=== PATIENT | male | born 1985 | race Caucasian/White ===

== ENCOUNTER 2016-12-04 19:09 | Emergency (ER) | payer OTHER ==
[2016-12-04] MEDS ORDERED: SODIUM CHLORIDE 0.9% 500 ML IV STA (19:20)
[2016-12-04] MEDS ORDERED: DIAZEPAM 5 MG/ML 2 ML SYRINGE IVP STA (19:20)
[2016-12-04] MEDS ORDERED: SODIUM CHLORIDE 0.9% 1,000 ML IV STA (19:20)
[2016-12-04] MEDS ORDERED: THIAMINE 100 MG/ML 2 ML VIAL IVPB STA (19:20)
[2016-12-04] MEDS ORDERED: ONDANSETRON 4 MG/2 ML VIAL IVP STA (19:21)
[2016-12-04] MEDS ORDERED: FOLIC ACID 1 MG TAB PO STA (19:21)
[2016-12-04] MEDS ORDERED: MAGNESIUM OXIDE 400 MG TAB PO STA (19:21)
--- NOTE | 2016-12-04 19:26 | ED ---
General Adult HPI - General Source: patient, RN notes reviewed, old records reviewed Mode of arrival: ambulatory Limitations: no limitations <Tucker Lopez - Last Filed: 12/04/16 19:24> <Jorge Alicia - Last Filed: 12/05/16 05:35> - General Chief complaint: Back Pain/Injury Stated complaint: Generalized Pain Time Seen by Provider: 12/04/16 19:16 - History of Present Illness Initial comments: This is a 31-year-old male to the ER for evaluation. Patient presents here today for evaluation of back pain and body pain muscle aches muscle pain. Patient with renal colic and an everyday drinker. States his last drink was prior to arrival. Patient also states he is having cramping in his with his care as both his arms biceps and chest. Patient is a decreased appetite, and balanced diet, homelessness. Patient denies homicidal or suicidal thoughts ( Tucker Lopez) - Related Data Home Medications Medication Instructions Recorded Confirmed No Known Home Medications [No 12/04/16 12/04/16 Known Home Medications] Allergies Allergy/AdvReac Type Severity Reaction Status Date / Time No Known Allergies Allergy Verified 12/04/16 19:39 Review of Systems ROS Other: All systems not noted in ROS Statement are negative. <Tucker Lopez - Last Filed: 12/04/16 19:24> ROS Other: All systems not noted in ROS Statement are negative. <Jorge Alicia - Last Filed: 12/05/16 05:35> ROS Statement: Those systems with pertinent positive or pertinent negative responses have been documented in the HPI. Past Medical History Past Medical History: No Reported History Additional Past Medical History / Comment(s): chronic back pain History of Any Multi-Drug Resistant Organisms: None Reported Past Surgical History: Orthopedic Surgery Additional Past Surgical History / Comment(s): knee Past Psychological History: Anxiety Smoking Status: Current every day smoker Past Alcohol Use History: Abuse, Daily, Heavy Past Drug Use History: None Reported <Tucker Lopez - Last Filed: 12/04/16 19:24> General Exam Limitations: no limitations General appearance: alert, in no apparent distress Head exam: Present: atraumatic, normocephalic, normal inspection Eye exam: Present: normal appearance, PERRL, EOMI. Absent: scleral icterus, conjunctival injection, periorbital swelling ENT exam: Present: normal exam, mucous membranes moist Neck exam: Present: normal inspection. Absent: tenderness, meningismus, lymphadenopathy Respiratory exam: Present: normal lung sounds bilaterally. Absent: respiratory distress, wheezes, rales, rhonchi, stridor Cardiovascular Exam: Present: normal rhythm, tachycardia, normal heart sounds. Absent: systolic murmur, diastolic murmur, rubs, gallop, clicks GI/Abdominal exam: Present: soft, normal bowel sounds. Absent: distended, tenderness, guarding, rebound, rigid Extremities exam: Present: normal inspection, full ROM, normal capillary refill. Absent: tenderness, pedal edema, joint swelling, calf tenderness Back exam: Present: normal inspection Neurological exam: Present: alert, oriented X3, CN II-XII intact Psychiatric exam: Present: normal affect, normal mood Skin exam: Present: warm, dry, intact, normal color. Absent: rash <Tucker Lopez - Last Filed: 12/04/16 19:24> Medical Decision Making <Tucker Lopez - Last Filed: 12/04/16 19:24> - Lab Data Result diagrams: 12/04/16 19:36 12/04/16 19:36 <Jorge Alicia - Last Filed: 12/05/16 05:35> - Medical Decision Making Patient did complain earlier of depression and was seen by mental health services who did provide follow-up list and does not feel patient qualifies for inpatient mental health services. Patient was reevaluated by myself, Dr. Alicia. Patient resting comfortably in bed. Patient states he is a daily drinker and does walk a lot. Patient without further complaints and is comfortable with discharge. Patient advised to discontinue alcohol use. (Jorge Alicia) - Lab Data Lab Results 12/04/16 12/04/16 12/04/16 Range/Units 19:36 19:36 19:36 WBC 7.7 (3.8-10.6) k/uL RBC 4.82 (4.30-5.90) m/uL Hgb 16.4 (13.0-17.5) gm/dL Hct 45.6 (39.0-53.0) % MCV 94.7 (80.0-100.0) fL MCH 34.1 (25.0-35.0) pg MCHC 36.0 (31.0-37.0) g/dL RDW 12.6 (11.5-15.5) % Plt Count 240 (150-450) k/uL Neutrophils % 71 % Lymphocytes % 21 % Monocytes % 5 % Eosinophils % 1 % Basophils % 1 % Neutrophils # 5.4 (1.3-7.7) k/uL Lymphocytes # 1.6 (1.0-4.8) k/uL Monocytes # 0.4 (0-1.0) k/uL Eosinophils # 0.1 (0-0.7) k/uL Basophils # 0.1 (0-0.2) k/uL Sodium 139 (137-145) mmol/L Potassium 3.4 L (3.5-5.1) mmol/L Chloride 103 (98-107) mmol/L Carbon Dioxide 22 (22-30) mmol/L Anion Gap 14 mmol/L BUN 7 L (9-20) mg/dL Creatinine 0.83 (0.66-1.25) mg/dL Est GFR (MDRD) Af Amer >60 (>60 ml/min/1.73 sqM) Est GFR (MDRD) Non-Af >60 (>60 ml/min/1.73 sqM) Glucose 147 H (74-99) mg/dL Calcium 9.1 (8.4-10.2) mg/dL Phosphorus 3.3 (2.5-4.5) mg/dL Magnesium 2.1 (1.6-2.3) mg/dL Total Bilirubin 1.7 H (0.2-1.3) mg/dL AST 113 H (17-59) U/L ALT 95 H (21-72) U/L Alkaline Phosphatase 94 (38-126) U/L Total Creatine Kinase 869 H (55-170) U/L CK-MB (CK-2) 7.4 H* (0.0-2.4) ng/mL CK-MB (CK-2) Rel Index 0.9 Total Protein 7.5 (6.3-8.2) g/dL Albumin 4.7 (3.5-5.0) g/dL Lipase 105 (23-300) U/L Urine Opiates Screen (NotDetected) Ur Oxycodone Screen (NotDetected) Urine Methadone Screen (NotDetected) Ur Propoxyphene Screen (NotDetected) Ur Barbiturates Screen (NotDetected) U Tricyclic Antidepress (NotDetected) Ur Phencyclidine Scrn (NotDetected) Ur Amphetamines Screen (NotDetected) U Methamphetamines Scrn (NotDetected) U Benzodiazepines Scrn (NotDetected) Urine Cocaine Screen (NotDetected) U Marijuana (THC) Screen (NotDetected) Serum Alcohol 246 mg/dL 12/04/16 Range/Units 20:12 WBC (3.8-10.6) k/uL RBC (4.30-5.90) m/uL Hgb (13.0-17.5) gm/dL Hct (39.0-53.0) % MCV (80.0-100.0) fL MCH (25.0-35.0) pg MCHC (31.0-37.0) g/dL RDW (11.5-15.5) % Plt Count (150-450) k/uL Neutrophils % % Lymphocytes % % Monocytes % % Eosinophils % % Basophils % % Neutrophils # (1.3-7.7) k/uL Lymphocytes # (1.0-4.8) k/uL Monocytes # (0-1.0) k/uL Eosinophils # (0-0.7) k/uL Basophils # (0-0.2) k/uL Sodium (137-145) mmol/L Potassium (3.5-5.1) mmol/L Chloride (98-107) mmol/L Carbon Dioxide (22-30) mmol/L Anion Gap mmol/L BUN (9-20) mg/dL Creatinine (0.66-1.25) mg/dL Est GFR (MDRD) Af Amer (>60 ml/min/1.73 sqM) Est GFR (MDRD) Non-Af (>60 ml/min/1.73 sqM) Glucose (74-99) mg/dL Calcium (8.4-10.2) mg/dL Phosphorus (2.5-4.5) mg/dL Magnesium (1.6-2.3) mg/dL Total Bilirubin (0.2-1.3) mg/dL AST (17-59) U/L ALT (21-72) U/L Alkaline Phosphatase (38-126) U/L Total Creatine Kinase (55-170) U/L CK-MB (CK-2) (0.0-2.4) ng/mL CK-MB (CK-2) Rel Index Total Protein (6.3-8.2) g/dL Albumin (3.5-5.0) g/dL Lipase (23-300) U/L Urine Opiates Screen Not Detected (NotDetected) Ur Oxycodone Screen Not Detected (NotDetected) Urine Methadone Screen Not Detected (NotDetected) Ur Propoxyphene Screen Not Detected (NotDetected) Ur Barbiturates Screen Not Detected (NotDetected) U Tricyclic Antidepress Not Detected (NotDetected) Ur Phencyclidine Scrn Not Detected (NotDetected) Ur Amphetamines Screen Not Detected (NotDetected) U Methamphetamines Scrn Not Detected (NotDetected) U Benzodiazepines Scrn Not Detected (NotDetected) Urine Cocaine Screen Not Detected (NotDetected) U Marijuana (THC) Screen Not Detected (NotDetected) Serum Alcohol mg/dL Disposition <Tucker Lopez - Last Filed: 12/04/16 19:24> <Jorge Alicia - Last Filed: 12/05/16 05:35> Clinical Impression: Alcohol abuse Disposition: HOME SELF-CARE Condition: Stable Instructions: Abuse of Alcohol (ED) Additional Instructions: Discontinue alcohol use. Follow-up with primary care physician next day or 2 for recheck. Please follow-up with substance abuse, list provided. Return for change or worsening in symptoms or other concerns. Referrals: None,Stated [Primary Care Provider] - 1-2 days Talia Zelaya MD [REFERRING] - 1-2 days
[2016-12-04 19:46] LABS: Basophils # (A) 0.1 k/uL (0-0.2); Basophils % (A) 1 %; Eosinophils # (A) 0.1 k/uL (0-0.7); Eosinophils % (A) 1 %; HCT 45.6 % (39.0-53.0); HDW 2.16; HGB 16.4 gm/dL (13.0-17.5); Luc # (Auto) 0.17; Luc % (Auto) 2; Lymphocytes # (A) 1.6 k/uL (1.0-4.8); Lymphocytes % (A) 21 %; MCH 34.1 pg (25.0-35.0); MCV 94.7 fL (80.0-100.0); Mean Platelet Volume 6.9; Monocytes # (A) 0.4 k/uL (0-1.0); Monocytes % (A) 5 %; Neutrophils # (A) 5.4 k/uL (1.3-7.7); Neutrophils % (A) 71 %; RBC 4.82 m/uL (4.30-5.90); RDW 12.6 % (11.5-15.5); WBC 7.7 k/uL (3.8-10.6); WBC (Perox) 7.36
[2016-12-04 19:58] LABS: ALT 95 U/L (21-72); AST 113 U/L (17-59); Alkaline Phosphatase 94 U/L (38-126); Anion Gap 14 mmol/L; Blood Urea Nitrogen 7 mg/dL (9-20); Calcium 9.1 mg/dL (8.4-10.2); Carbon Dioxide 22 mmol/L (22-30); Chloride 103 mmol/L (98-107); Glucose 147 mg/dL (74-99); Magnesium 2.1 mg/dL (1.6-2.3); Non-African American GFR(MDRD) >60 (>60 ml/min/1.73 sqM); Phosphorous 3.3 mg/dL (2.5-4.5); Potassium 3.4 mmol/L (3.5-5.1); Sodium 139 mmol/L (137-145); Total Bilirubin 1.7 mg/dL (0.2-1.3); Total Protein 7.5 g/dL (6.3-8.2)
[2016-12-04 20:04] LABS: Alcohol 246 mg/dL
[2016-12-04 20:26] LABS: Creatine Kinase MB 7.4 ng/mL (0.0-2.4)
[2016-12-05 00:03] VITALS: RESP 20
[2016-12-05] MEDS ORDERED: FAMOTIDINE 20 MG TAB PO STA (05:35)
[2016-12-05 05:55] VITALS: BP 138/64; PULSE 92; TEMP 98.1
== END 2016-12-05 05:55 | disposition home or self-care (01) ==
LOC: EC 19:09
DX: F10.10 Alcohol abuse, uncomplicated (principal); R00.0 Tachycardia, unspecified; N23 Unspecified renal colic; M54.9 Dorsalgia, unspecified; R25.2 Cramp and spasm; R52 Pain, unspecified; F17.200 Nicotine dependence, unspecified, uncomplicated; Z59.0 Homelessness
CPT/HCPCS: 99284; 82075; 36415; 80053; 82550; 82553; 83690; 83735; 84100; 85025; 80306; 80320; 96374; 96375 ×2; 96361; J3411; J3360; J2405

== ENCOUNTER 2017-02-11 16:23 | Inpatient (IN) | payer MEDICAID, OTHER ==
[2017-02-11] MEDS ORDERED: SODIUM CHLORIDE 0.9% 1,000 ML IV ONE (16:58)
[2017-02-11] MEDS ORDERED: DIPH,PERTUS(ACELL)TETVAC-LF 0.5 ML VIAL IM ONE (17:03)
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
[2017-02-11 17:22] LABS: Basophils # (A) 0.1 k/uL (0-0.2); Basophils % (A) 1 %; CH 34.7; CHCM 36.4; Eosinophils # (A) 0.1 k/uL (0-0.7); Eosinophils % (A) 1 %; HCT 40.3 % (39.0-53.0); HDW 2.33; HGB 14.1 gm/dL (13.0-17.5); Luc # (Auto) 0.21; Luc % (Auto) 3; Lymphocytes # (A) 2.2 k/uL (1.0-4.8); Lymphocytes % (A) 30 %; MCH 33.6 pg (25.0-35.0); MCHC 35.1 g/dL (31.0-37.0); MCV 95.6 fL (80.0-100.0); Mean Platelet Volume 7.4; Monocytes # (A) 0.3 k/uL (0-1.0); Monocytes % (A) 5 %; Neutrophils # (A) 4.6 k/uL (1.3-7.7); Neutrophils % (A) 61 %; RBC 4.21 m/uL (4.30-5.90); RDW 13.4 % (11.5-15.5); WBC 7.6 k/uL (3.8-10.6); WBC (Perox) 7.22
[2017-02-11 17:31] LABS: ALT 92 U/L (21-72); AST 75 U/L (17-59); Alkaline Phosphatase 72 U/L (38-126); Anion Gap 12 mmol/L; Blood Urea Nitrogen 5 mg/dL (9-20); Calcium 8.5 mg/dL (8.4-10.2); Carbon Dioxide 26 mmol/L (22-30); Chloride 108 mmol/L (98-107); Glucose 109 mg/dL (74-99); Non-African American GFR(MDRD) >60 (>60 ml/min/1.73 sqM); Potassium 3.5 mmol/L (3.5-5.1); Sodium 146 mmol/L (137-145); Total Bilirubin 0.3 mg/dL (0.2-1.3); Total Protein 6.5 g/dL (6.3-8.2)
[2017-02-11 17:39] LABS: Alcohol 352 mg/dL
--- NOTE | 2017-02-11 17:47 | CT ---
EXAMINATION TYPE: CT brain fabioine gildardo con DATE OF EXAM: 02/11/2017 COMPARISON: September 18, 2011. HISTORY: Headache. Neck pain. CT DLP: 1150.6 mGycm Automated exposure control for dose reduction was used. TECHNIQUE: CT scan of the head and cervical spine are performed without contrast. FINDINGS: There is no acute intracranial hemorrhage, mass effect, or midline shift identified. The ventricles and sulci are within normal limits in size. The globes are intact and the visualized sin uses are clear. Cervical spine is visualized in its entirety from C1 through upper thoracic levels and demonstrates s atisfactory alignment without evidence of acute fracture or dislocation. Prevertebral soft tissue ap pears within normal limits. The C1-C2 articulation is unremarkable. Mild reversal of cervical lordo sis is noted similar to the previous study. IMPRESSION: 1. There is no acute fracture or dislocation evident in the cervical spine. Mild reversal of the cerv ical lordosis is noted. 2. No acute intracranial hemorrhage, mass effect, or midline shift is seen.
--- NOTE | 2017-02-11 17:49 | XR ---
Exam: Right hand complete TECHNIQUE: 4 views of the right hand were obtained. No prior studies are available for comparison. FINDINGS: No acute fracture or subluxation. No radiopaque foreign body is identified. Soft tissue structures ar e unremarkable. IMPRESSION: No acute abnormality is identified.
[2017-02-12] MEDS ORDERED: LORazepam 1 MG TAB PO STA (13:14)
[2017-02-12] MEDS ORDERED: MAG HYDROX/AL HYDROX/SIMETH 30 ML CUP PO PRN (14:30)
[2017-02-12] MEDS ORDERED: ZIPRASIDONE 20 MG VIAL IM PRN (14:30)
[2017-02-12] MEDS ORDERED: MAGNESIUM HYDROXIDE 2,400 MG/10 ML CUP PO PRN (14:30)
[2017-02-12] MEDS ORDERED: LORazepam 2 MG/ML SYRINGE IM PRN (14:33)
[2017-02-12] MEDS: LORazepam 1 MG TAB PO PRN (18:07)
[2017-02-12] MEDS: ACETAMINOPHEN TAB 325 MG TAB PO PRN (18:07)
[2017-02-12] MEDS: NICOTINE 21MG/24HR PATCH TRANSDERM SCH (18:55)
[2017-02-13] MEDS: LORazepam 1 MG TAB PO PRN ×3 (06:57→21:52)
[2017-02-13] MEDS ORDERED: NICOTINE 14MG/24HR PATCH TRANSDERM SCH (09:00)
[2017-02-13] MEDS: NICOTINE 21MG/24HR PATCH TRANSDERM SCH (09:15)
[2017-02-13 09:55] LABS: Basophils % (A) 1 %; CH 33.4; CHCM 34.9; Eosinophils # (A) 0.1 k/uL (0-0.7); Eosinophils % (A) 2 %; HCT 40.2 % (39.0-53.0); HGB 13.9 gm/dL (13.0-17.5); Luc # (Auto) 0.11; Luc % (Auto) 2; Lymphocytes # (A) 1.1 k/uL (1.0-4.8); Lymphocytes % (A) 18 %; MCH 33.3 pg (25.0-35.0); MCHC 34.6 g/dL (31.0-37.0); Monocytes # (A) 0.4 k/uL (0-1.0); Monocytes % (A) 7 %; Neutrophils # (A) 4.1 k/uL (1.3-7.7); Neutrophils % (A) 70 %; RBC 4.18 m/uL (4.30-5.90); RDW 12.9 % (11.5-15.5); WBC 5.9 k/uL (3.8-10.6); WBC (Perox) 6.21
[2017-02-13 10:23] LABS: ALT 76 U/L (21-72); AST 50 U/L (17-59); Alkaline Phosphatase 66 U/L (38-126); Anion Gap 7 mmol/L; Blood Urea Nitrogen 11 mg/dL (9-20); Calcium 8.6 mg/dL (8.4-10.2); Carbon Dioxide 25 mmol/L (22-30); Chloride 107 mmol/L (98-107); Glucose 99 mg/dL (74-99); Non-African American GFR(MDRD) >60 (>60 ml/min/1.73 sqM); Potassium 4.3 mmol/L (3.5-5.1); Sodium 139 mmol/L (137-145); Total Bilirubin 0.5 mg/dL (0.2-1.3)
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
[2017-02-13] MEDS: SERTRALINE 50 MG TAB PO SCH (12:03)
[2017-02-13] MEDS: MULTIVITAMINS, THERA 1 EACH TAB PO SCH (12:03)
[2017-02-13] MEDS: THIAMINE 100 MG TAB PO SCH (12:03)
[2017-02-13] MEDS: ACETAMINOPHEN TAB 325 MG TAB PO PRN ×2 (16:53→21:52)
[2017-02-14] MEDS: ACETAMINOPHEN TAB 325 MG TAB PO PRN ×2 (08:38→21:05)
[2017-02-14] MEDS: NICOTINE 21MG/24HR PATCH TRANSDERM SCH (08:39)
[2017-02-14] MEDS: LORazepam 1 MG TAB PO PRN ×3 (08:39→21:05)
[2017-02-14] MEDS: SERTRALINE 50 MG TAB PO SCH (08:39)
--- NOTE | 2017-02-14 09:49 | P.PN ---
Progress Note - Text Interval history: The patient is found in his room he follows me to an interview room. He continues to report feeling depressed and anxious. He has a lack of energy and feels apathetic. He did not attend groups yesterday he has attended 1 group so far this morning. He reports disturbed sleep and although it's documented he slept 6 hours he reports it was quite fragmented. We discussed the use of Zoloft. He feels that he has done well with Seroquel at bedtime to help with sleep and for mood symptoms. He continues to plan on attending inpatient chemical dependency treatment on the . Mental status exam: The patient is a soft-spoken male appearing his stated age. He is wearing the same clothing is yesterday hygiene is adequate. Eye contact is intermittent. He does have spontaneous speech he is difficult to hear at times. Speech is fluent and nonpressured. Thought process can be circumstantial and sometimes tangential no loose associations or flight of ideas. He reports ongoing suicidal thoughts and feels hopeless. No homicidal ideation reported. He reports no auditory or visual hallucinations no specific delusions. There is no overt evidence of psychosis. He seated calmly he demonstrates some psychomotor slowing. No verbal or physical aggressiveness demonstrated. He is oriented to person place and date. Insight and judgment limited. Plan: Major depressive disorder recurrent severe without psychosis, alcohol use disorder: The patient will continue on the Zoloft 50 mg daily we will likely titrate the dose to 100 mg prior to discharge. I will initiate Seroquel 50 mg at bedtime to help with sleep and this may also assist in treating depressive symptoms. He is instructed to more fully participate in the milieu we will monitor him for safety.
[2017-02-14] MEDS: MULTIVITAMINS, THERA 1 EACH TAB PO SCH (11:47)
[2017-02-14] MEDS: THIAMINE 100 MG TAB PO SCH (11:47)
[2017-02-14] MEDS: QUEtiapine 50 MG TAB PO SCH (21:04)
[2017-02-15] MEDS: NICOTINE 21MG/24HR PATCH TRANSDERM SCH (08:35)
[2017-02-15] MEDS: SERTRALINE 50 MG TAB PO SCH (08:35)
--- NOTE | 2017-02-15 09:52 | P.PN ---
Progress Note - Text Interval history: The patient is found in his room lying in bed he follows me to an interview room. He reports that he was able to sleep better last night with initiation of Seroquel. He is reporting no side effects from the Zoloft. He continues to look forward to placement at [facility] on the of this month. He reports no phone contact with family as he does not want to bother them. He does plan on contacting his father over the weekend. He is certain no one will visit him here. He reports his mood is still depressed and anxious but he feels safe in this environment area and he reports that he went to most groups yesterday. Mental status exam: The patient is alert he is a disheveled appearance he is dressed in the same clothing hygiene is adequate. Eye contacts appropriate. He has more spontaneous speech he endorses a depressed and anxious mood. Affect is constricted. He remains soft-spoken. There is no psychomotor agitation possible mild slowing. He feels safe here in the hospital in terms of suicidal ideation he endorses no homicidal ideation. There is no report of auditory or visual hallucinations or specific delusions. There is no evidence of psychosis. He does not appear hypomanic or manic. He can be circumstantial at times today there was no tangential thinking loose associations or flight of ideas. Insight and judgment slowly improving. Plan: Major depressive disorder, and he disorder: Continue Zoloft we will plan to titrate 200 mg over the next few days continue Seroquel 50 mg at bedtime. He is instructed to participate fully in the milieu. Vital signs reviewed no new labs. He will likely be appropriate for discharge sometime next week depending on his clinical progress. He plans to [facility] to the [facility] upon [facility]. We discussed having him attend AA meetings prior to [facility] placement as well.
[2017-02-15] MEDS: THIAMINE 100 MG TAB PO SCH (11:48)
[2017-02-15] MEDS: MULTIVITAMINS, THERA 1 EACH TAB PO SCH (11:48)
[2017-02-15] MEDS: LORazepam 1 MG TAB PO PRN ×2 (11:49→21:14)
[2017-02-15] MEDS: QUEtiapine 50 MG TAB PO SCH (20:02)
[2017-02-16] MEDS: NICOTINE 21MG/24HR PATCH TRANSDERM SCH (08:04)
[2017-02-16] MEDS: SERTRALINE 50 MG TAB PO SCH (08:04)
[2017-02-16] MEDS: LORazepam 1 MG TAB PO PRN ×2 (08:07→16:31)
[2017-02-16] MEDS: MULTIVITAMINS, THERA 1 EACH TAB PO SCH (12:11)
[2017-02-16] MEDS: THIAMINE 100 MG TAB PO SCH (12:11)
--- NOTE | 2017-02-16 14:34 | P.PN ---
Progress Note - Text Interval History: Patient is a 31-year-old male who was seen today in coverage for Dr. Crouch. He reports that he is sleeping well and his depression has been improving. He states that he is not having any suicidal thoughts and his energy level is increased. He denied feeling hopeless, helpless or worthless. He states he is eating well. Patient states he continues to have anxiety and has been using Ativan with good success, he stated to me that he was using alcohol and pain medication on the outside to attempt to control his anxiety. Patient reported no side effects from the medication. Patient has been attending groups and activities. Mental Status: Appearance/Attitude: Patient is appropriately and neatly dressed , makes good eye contact and is cooperative. Behavior: Patient does not display any psychomotor agitation or retardation. Speech/Language: Patient's speech is spontaneous, of normal volume and rhythm and he is coherent. Thought Process: Patient is goal-directed, no evidence of tangential or circumstantial thought and no loose associations or flight of ideas. Thought Content: Patient denies any auditory or visual hallucinations no delusions or paranoid ideation were elicited. Patient states that he is sleeping and eating well and denies any feeling hopeless, helpless or worthless. Patient continues to report anxiety symptoms and has been using Ativan to assist with this. Suicidal/Homicidal Ideation: Patient denies any current suicidal or homicidal ideation. Sensorium/Cognition: Patient is alert and oriented to person, place, and time and his memory is grossly intact. Mood/Affect: Patient's mood is slightly depressed and his affect is appropriate. Insight/Judgement: Patient's insight and judgment are fair. Assessment: Patient states that he is sleeping better with the addition of the Seroquel and states that his depression is beginning to improve. He reports having more energy and not feeling as depressed. He states he is not hopeless or helpless and states he no longer has any suicidal ideation. Patient does continue have difficulties with anxiety for which she has been using Ativan on an as-needed basis. Patient has been attending groups and activities and states he has been participating. Plan: Patient will continue on Seroquel 50 mg at bedtime and will increase his Zoloft to 100 mg a day to target both his depression and anxiety symptoms and I discussed this with the patient. Patient continues to require hospitalization to further stabilize his mood.
[2017-02-16] MEDS: ACETAMINOPHEN TAB 325 MG TAB PO PRN (16:31)
[2017-02-16] MEDS: QUEtiapine 50 MG TAB PO SCH (21:15)
[2017-02-17 06:40] VITALS: RESP 16
[2017-02-17] MEDS: SERTRALINE 100 MG TAB PO SCH (08:05)
[2017-02-17] MEDS: NICOTINE 21MG/24HR PATCH TRANSDERM SCH (08:05)
[2017-02-17] MEDS: LORazepam 1 MG TAB PO PRN ×2 (08:06→20:08)
--- NOTE | 2017-02-17 10:34 | P.PN ---
Progress Note - Text Interval History: Patient is a 31-year-old male who is being seen in coverage for Dr. Crouch. Patient reports that he wasn't feeling as well as morning due to waking up with a stomach ache. He did state that he ate breakfast and was attending groups and activities yesterday. He states that he didn't sleep that well last night but is unable to clarify why he wasn't sleeping well and it should be noted that patient received some Ativan last evening because of anxiety. Patient states that he is not feeling suicidal and is feeling less depressed than on admission. Patient had no other complaints at this time. Mental Status: Appearance/Attitude: Patient is appropriately dressed, makes good eye contact and was cooperative. Behavior: Patient does not display any psychomotor agitation or retardation. Speech/Language: Patient's speech is spontaneous and of normal volume and rhythm and he is coherent. Thought Process: Patient is goal-directed and there is no evidence of circumstantial or tangential thought and no loose associations or flight of ideas. Thought Content: Patient denies any auditory or visual hallucinations no delusions or paranoid ideation were elicited. Patient states that his stomach was upset this morning when he woke up but he was able to eat breakfast. He reports that he was attending groups and activities yesterday but was in bed this morning due to his stomachache. Patient reports he did not sleep well last night and was anxious and did request and Ativan. Appetite is unchanged. Suicidal/Homicidal Ideation: Patient denies any current suicidal or homicidal ideation. Sensorium/Cognition: Patient is alert and oriented to person, place, and time and his memory is grossly intact. Mood/Affect: Patient's mood is less depressed and his affect is slightly blunted. Insight/Judgement: Patient's insight and judgment are fair. Assessment: Patient was seen today and he reported he had some anxiety last night and requested some Ativan as well as not sleeping that well and waking up with a stomach ache. Patient states that he was attending groups and activities yesterday but this morning was found in bed due to not feeling physically well. He reports he has no suicidal ideation and states his depression is somewhat better than on admission. Plan: Patient was continued on Seroquel 50 mg at bedtime and his Zoloft was increased today to 100 mg to target his depressive symptoms. Patient continues to require hospitalization to further stabilize his mood
[2017-02-17] MEDS: THIAMINE 100 MG TAB PO SCH (12:52)
[2017-02-17] MEDS: MULTIVITAMINS, THERA 1 EACH TAB PO SCH (12:52)
[2017-02-17] MEDS: ACETAMINOPHEN TAB 325 MG TAB PO PRN (20:08)
[2017-02-17] MEDS: QUEtiapine 50 MG TAB PO SCH (21:26)
[2017-02-18 06:43] VITALS: BP 100/54; PULSE 71; TEMP 98
[2017-02-18] MEDS: SERTRALINE 100 MG TAB PO SCH (08:37)
[2017-02-18] MEDS: NICOTINE 21MG/24HR PATCH TRANSDERM SCH (08:37)
--- NOTE | 2017-02-18 09:46 | P.DS ---
Providers Date of admission: 02/12/17 14:17 Expected date of discharge: 02/18/17 Attending physician: Petr Crouch Consults: 02/12/17 14:30 Consult Physician Routine Consulting Provider: Avtar Mejia Consult Reason/Comments: follow up H & P Do you want consulting provider notified?: Yes Primary care physician: Stated None - Discharge Diagnosis(es) (1) Major depressive disorder, recurrent severe without psychotic features Current Visit: Yes Status: Acute Priority: High (2) Panic disorder Current Visit: Yes Status: Acute Priority: Medium (3) Alcohol use disorder Current Visit: Yes Status: Acute Priority: High Hospital Course: Brief summary of admission note: This patient is a 31-year-old single male who was admitted to the mental health unit through the emergency room with severe symptoms of depression and suicidal ideation. He had reported being severely depressed for the last several months and just having thoughts of wanting to . Energy was reported as low sleep is reported as impaired appetite was decreased. He reported symptoms of anhedonia. He reported a recent attempt to end his life by overusing alcohol with prescription pain medication. He describes symptoms of anxiety that presenting as panic attacks. For full details please refer to my psychiatric evaluation dated 02/13/2017. Summary of hospital course: The patient was admitted to the mental health unit he signed in voluntarily. We reviewed his presenting problems and medication options. We decided to initiate Zoloft and this was titrated 100 mg daily while on the mental health unit we also initiated Seroquel 50 mg at bedtime which she found helpful for sleep and may also be used as an augmentation strategy for his depression. The patient demonstrated no overt symptoms of alcohol withdrawal. Social work met with him to complete a psychosocial assessment and discharge planning. He was seen by internal medicine for routine history and physical exam. He reported a progressive improvement of symptoms while here. He states he has no acute suicidal ideation. He is scheduled to participate in inpatient chemical dependency treatment on the of this month. His plan is to [facility] the [facility] until chemical dependency treatment placement. He demonstrated no agitated behavior he was cooperative. He selectively attended groups during the course of his stay. Mental status exam: The patient is a male appearing his stated age she is dressed in his own clothing. Hygiene grooming adequate. He reports his mood is "good" he reports no suicidal or homicidal ideation intent or plan. He states he does not feel hopeless and he feels that he has a good plan in going to inpatient chemical dependency treatment and just 8 days. He is endorsing no auditory or visual hallucinations no specific delusions there is no evidence of psychosis. He endorses no racing thoughts there is no evidence of hypomanic or manic symptoms. Insight and judgment improved. He is oriented to person place and date. He demonstrates no verbal or physical aggressiveness. There is no evidence of abnormal involuntary movements. Affect is appropriately expressive he demonstrates appropriate smiling during the interview. Impressions 1. Major depressive disorder recurrent severe without psychosis, panic disorder , alcohol use disorder, rule out cannabis use disorder rule out opiate use disorder 2. Lack of social support, unemployment Plan: The patient will be discharged from mental health unit today. He plans on residing at the [address] [place] [address]. He is scheduled to start inpatient chemical dependency treatment on the of this month. He strongly encouraged to attend AA meetings prior to placement date. We discussed that a relapse of alcohol or other substance use would elevate his safety risk. He will continue on Zoloft 100 mg daily Seroquel 50 mg at bedtime. There is no imminent safety risk he is appropriate for discharge from the mental health unit to outpatient care. He is instructed to return to the hospital with any acute safety concerns. Patient Condition at Discharge: Stable Plan - Discharge Summary New Discharge Prescriptions: New Nicotine 21Mg/24Hr Patch [Habitrol] 1 patch TRANSDERM DAILY #12 patch QUEtiapine [SEROquel] 50 mg PO HS #30 tab Sertraline [Zoloft] 100 mg PO DAILY #30 tab Discharge Medication List Nicotine 21Mg/24Hr Patch [Habitrol] 1 patch TRANSDERM DAILY #12 patch 02/18/17 [ Rx] QUEtiapine [SEROquel] 50 mg PO HS #30 tab 02/18/17 [Rx] Sertraline [Zoloft] 100 mg PO DAILY #30 tab 02/18/17 [Rx] Follow up Appointment(s)/Referral(s): [facility] [Outside] - 02/26/17 10:00 am (Intake 02/26/17 at 10:00 am. Please arrive 5-10 minutes early. ) None,Stated [Primary Care Provider] - 1-2 days
[2017-02-18] MEDS: THIAMINE 100 MG TAB PO SCH (10:12)
[2017-02-18] MEDS: MULTIVITAMINS, THERA 1 EACH TAB PO SCH (10:12)
[2017-02-18] MEDS: ACETAMINOPHEN TAB 325 MG TAB PO PRN (10:12)
[2017-02-18] MEDS: LORazepam 1 MG TAB PO PRN (10:12)
--- NOTE | 2017-02-18 21:20 | CONS ---
CONSULTATION CHIEF COMPLAINT: Major depression and alcohol abuse. HISTORY OF PRESENT ILLNESS: This is the first known psych admission for this 31-year-old, white male. He presented to the emergency room with major depression and suicidal thoughts. He also has a history of alcohol abuse. REVIEW OF SYSTEMS: He denies any headaches, neurologic problems, chest pain, no cough, hemoptysis, palpitations, murmurs, syncope, orthopnea, PND, abdominal pain, nausea, vomiting, diarrhea, melena, hematochezia, jaundice, hematuria, frequency, urgency, arthralgias, diabetes, etc. PAST MEDICAL HISTORY: Past medical history, family history, personal and social history, otherwise unremarkable or unchanged. ALLERGIES: He is not allergic to any medications. MEDICATION: 1. He has recently been on Wellbutrin 150 mg once a day. 2. Motrin 800. 3. Xanax 0.25 t.i.d. p.r.n. 4. Vicodin p.r.n. 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 The remainder of his history is unremarkable. PHYSICAL EXAMINATION: Blood pressure 118/84, pulse 76, respirations 18, and temperature is 97.6. In general he appeared to be well developed, well nourished, no acute distress. Skin color is normal. Skin is warm, dry. Lymph nodes not enlarged. Head ears eyes, nose, mouth and throat were normal. Neck veins not distended. Thyroid is not enlarged. Chest is clear. Cardiac exam was normal. The abdomen is soft, nontender. Extremities are normal. Neurological he is intact. IMPRESSION: Major depression. RECOMMENDATIONS: None. MMODL / IJN: [id number] /
== END 2017-02-18 12:17 | disposition home or self-care (01) | DRG 885 ==
LOC: EC 16:23 → 3MHU 02-12 14:17
PROVIDERS: ADMIT Psychiatry & Neurology Psychiatry; ATTEND Psychiatry & Neurology Psychiatry
DX: F33.2 Major depressive disorder, recurrent severe without psychotic features (principal); E87.0 Hyperosmolality and hypernatremia; R45.851 Suicidal ideations; F41.0 Panic disorder [episodic paroxysmal anxiety]; Z79.899 Other long term (current) drug therapy; F17.200 Nicotine dependence, unspecified, uncomplicated; F12.90 Cannabis use, unspecified, uncomplicated; F10.129 Alcohol abuse with intoxication, unspecified; F11.10 Opioid abuse, uncomplicated; Z81.8 Family history of other mental and behavioral disorders; M54.9 Dorsalgia, unspecified; M25.569 Pain in unspecified knee; Z56.0 Unemployment, unspecified
CPT/HCPCS: 36415; 70450; 72125; 80053; 80306; 80320; 82075; 84443; 85025; 90471; 90715; 96360; 99285

== ENCOUNTER 2017-02-27 18:20 | Emergency (ER) | payer OTHER ==
--- NOTE | 2017-02-27 19:02 | ED ---
General Adult HPI - General Source: patient, RN notes reviewed Mode of arrival: ambulatory Limitations: no limitations <Jeovanny Deras - Last Filed: 02/27/17 18:57> <Brandy Self - Last Filed: 02/28/17 03:40> - General Chief complaint: Psychiatric Symptoms Stated complaint: General Time Seen by Provider: 02/27/17 18:39 - History of Present Illness Initial comments: Chief complaint history of present illness this is a 31-year-old male reports that he is here because he is depressed. He states he is suicidal he would either shoot himself or to both the bridge. Patient reports she's hearing voices are telling him to do himself harm. (Jeovanny Deras) - Related Data Previous Rx's Medication Instructions Recorded Nicotine 21Mg/24Hr Patch [Habitrol] 1 patch TRANSDERM DAILY #12 patch 02/18/17 QUEtiapine [SEROquel] 50 mg PO HS #30 tab 02/18/17 Sertraline [Zoloft] 100 mg PO DAILY #30 tab 02/18/17 Allergies Allergy/AdvReac Type Severity Reaction Status Date / Time No Known Allergies Allergy Verified 02/27/17 18:59 Review of Systems ROS Other: All systems not noted in ROS Statement are negative. <Jeovanny Deras - Last Filed: 02/27/17 18:57> ROS Other: All systems not noted in ROS Statement are negative. <Brandy Self - Last Filed: 02/28/17 03:40> ROS Statement: Those systems with pertinent positive or pertinent negative responses have been documented in the HPI. Review of systems patient has no complaints other than discomfort to the left side of his chest. Denies any injury. Psychologically the patient reports she is depressed hearing voices thinks he just end it all. All systems are reviewed. Past medical problems patient thinks he is probably been diagnosed as bipolar in the past. Patient reports that surgeries on his knee and back. Family history medical health issues mostly bipolar disorder. Patient is a heavy smoker heavy alcohol user. He states he is supposed to have gone to [employer] yesterday but did not get a ride and couldn't go so he drank today (Jeovanny Deras) Past Medical History Past Medical History: No Reported History Additional Past Medical History / Comment(s): chronic back pain History of Any Multi-Drug Resistant Organisms: None Reported Past Surgical History: Orthopedic Surgery Additional Past Surgical History / Comment(s): knee Past Psychological History: Anxiety Smoking Status: Current every day smoker Past Alcohol Use History: Abuse, Daily, Heavy Past Drug Use History: None Reported <Jeovanny Deras - Last Filed: 02/27/17 18:57> General Exam Limitations: no limitations <Jeovanny Deras - Last Filed: 02/27/17 18:57> <AramisBrandy hannon - Last Filed: 02/28/17 03:40> - General Exam Comments Initial Comments: General: The patient is awake presents with a flat affect. States he is hearing voices. States he's depressed and suicidal with a plan to hurt himself, and that all. Vital signs temperature 98.3 pulse 105 respiratory rate 18 pulse ox 97% room air blood pressure 132/82 Eye: Pupils are equal, round and reactive to light, extra-ocular movements are intact ; there is normal conjunctiva bilaterally. No signs of icterus. Ears, nose, mouth and throat: There are moist mucous membranes and no oral lesions. Neck: The neck is supple, there is no tenderness. Cardiovascular: There is a regular rate and rhythm. No murmur, rub or gallop is appreciated. Respiratory: Lungs are clear to auscultation, respirations are non-labored, breath sounds are equal. No wheezes, stridor, rales, or rhonchi. he complains discomfort to the left side of his chest increased with deep breathing. With palpation. No evidence of bruising. No rashes noted ,early shingles discussed Gastrointestinal: Soft, non-distended, non-tender abdomen without masses or organomegaly noted. There is no rebound or guarding present. No CVA tenderness. Back: There is no tenderness to palpation in the midline. There is no obvious deformity. No rashes noted. Musculoskeletal: Normal ROM, no tenderness, There is no pedal edema. There is no calf tenderness or swelling. Sensation intact. Neurological: No obvious focal or lateralizing findings. Patient denies any sensory or motor deficits. Skin: Psychiatric: History of bipolar depression. Currently depressed, states he is hearing voices , voices telling him to hurt himself. His plan to hurt himself agreed to shoot himself or jump off a bridge. (Jeovanny Deras) Course <Jeovanny Deras - Last Filed: 02/27/17 18:57> <Brandy Self - Last Filed: 02/28/17 03:40> Vital Signs 02/27/17 18:25 Temperature 98.3 F Pulse Rate 105 H Respiratory 18 Rate Blood Pressure 132/82 O2 Sat by Pulse 97 Oximetry - Reevaluation(s) Reevaluation #1: 02/28/17 03:39 Patient was reassessed by department of psychiatry, they recommended and they feel comfortable sending him home, they have given him follow-up directions he be discharged per there directions (Brandy Self) Disposition <Jeovanny Deras - Last Filed: 02/27/17 18:57> <Brandy Self - Last Filed: 02/28/17 03:40> Clinical Impression: Depression Disposition: HOME SELF-CARE Condition: Good Instructions: Depression (ED) Referrals: None,Stated [Primary Care Provider] - 1-2 days
--- NOTE | 2017-02-27 19:16 | XR ---
EXAMINATION TYPE: XR chest 1V portable DATE OF EXAM: 02/27/2017 COMPARISON: NONE HISTORY: Pain TECHNIQUE: Single frontal view of the chest is obtained. FINDINGS: There is no focal air space opacity, pleural effusion, or pneumothorax seen. The cardiac silhouette size is within normal limits. The osseous structures are intact. IMPRESSION: No acute process.
[2017-02-27 20:16] LABS: Acetaminophen <10.0 ug/mL; Salicylate <1.0 mg/dL
[2017-02-28] MEDS ORDERED: LORazepam 1 MG TAB PO STA (03:42)
[2017-02-28 03:51] VITALS: BP 143/89; PULSE 90; RESP 20; TEMP 97.2
== END 2017-02-28 03:55 | disposition home or self-care (01) ==
LOC: EC 18:20
DX: F32.9 Major depressive disorder, single episode, unspecified (principal); R45.851 Suicidal ideations; R44.0 Auditory hallucinations; R07.89 Other chest pain; F17.200 Nicotine dependence, unspecified, uncomplicated
CPT/HCPCS: 36415; 71010; 80306; 82075; 83520; 99284

== ENCOUNTER 2017-03-19 13:47 | Observation (INO) | payer OTHER, MEDICAID ==
[2017-03-19 14:08] LABS: Basophils # (A) 0.1 k/uL (0-0.2); Basophils % (A) 1 %; CH 33.7; Eosinophils # (A) 0.1 k/uL (0-0.7); Eosinophils % (A) 1 %; HCT 49.9 % (39.0-53.0); HDW 2.19; HGB 16.8 gm/dL (13.0-17.5); Luc # (Auto) 0.33; Luc % (Auto) 3; Lymphocytes # (A) 3.6 k/uL (1.0-4.8); Lymphocytes % (A) 36 %; MCH 33.4 pg (25.0-35.0); MCHC 33.6 g/dL (31.0-37.0); MCV 99.4 fL (80.0-100.0); Mean Platelet Volume 6.9; Monocytes # (A) 0.5 k/uL (0-1.0); Monocytes % (A) 5 %; Neutrophils # (A) 5.6 k/uL (1.3-7.7); Neutrophils % (A) 54 %; RBC 5.02 m/uL (4.30-5.90); RDW 13.2 % (11.5-15.5); WBC 10.2 k/uL (3.8-10.6); WBC (Perox) 9.84
[2017-03-19 14:18] LABS: ALT 53 U/L (21-72); AST 41 U/L (17-59); Alkaline Phosphatase 81 U/L (38-126); Anion Gap 14 mmol/L; Blood Urea Nitrogen 9 mg/dL (9-20); Calcium 8.6 mg/dL (8.4-10.2); Carbon Dioxide 24 mmol/L (22-30); Chloride 110 mmol/L (98-107); Glucose 90 mg/dL (74-99); Magnesium 2.2 mg/dL (1.6-2.3); Non-African American GFR(MDRD) >60 (>60 ml/min/1.73 sqM); Potassium 4.2 mmol/L (3.5-5.1); Sodium 148 mmol/L (137-145); Total Bilirubin 0.2 mg/dL (0.2-1.3); Total Protein 7.2 g/dL (6.3-8.2)
[2017-03-19 14:33] LABS: Alcohol 438 mg/dL
[2017-03-19] MEDS ORDERED: LORazepam 2 MG/ML INJ IV PRN ×2 (14:50)
[2017-03-19] MEDS ORDERED: NALOXONE 0.4 MG/ML 1 ML VIAL IV PRN ×2 (15:47→16:29)
--- NOTE | 2017-03-19 15:51 | ED ---
General Adult HPI - General Chief complaint: Alcohol Stated complaint: Alcohol Time Seen by Provider: 03/19/17 13:54 Source: patient, police, RN notes reviewed Mode of arrival: ambulatory Limitations: no limitations - History of Present Illness Initial comments: 31-year-old male presents for evaluation of altered mental status and alcohol ingestion. Patient does admit to drinking a large amount of alcohol. Patient also states he took Xanax throughout the morning. He will not specifically say how many he took. Denies any other ingested substances. Denies suicidal ideation or attempt. Patient will answer simple questions but is intoxicated on initial evaluation. Denies chest pain or shortness of breath. Denies abdominal pain. - Related Data Home Medications Medication Instructions Recorded Confirmed Cyclobenzaprine [Flexeril] 10 mg PO BID PRN 03/19/17 03/19/17 Gabapentin [Neurontin] 100 mg PO HS 03/19/17 03/19/17 Ibuprofen [Motrin] 800 mg PO QID PRN 03/19/17 03/19/17 traZODone HCL 50 - 100 mg PO HS PRN 03/19/17 03/19/17 Previous Rx's Medication Instructions Recorded QUEtiapine [SEROquel] 50 mg PO HS #30 tab 02/18/17 Sertraline [Zoloft] 100 mg PO DAILY #30 tab 02/18/17 Allergies Allergy/AdvReac Type Severity Reaction Status Date / Time No Known Allergies Allergy Verified 03/19/17 14:20 Review of Systems ROS Statement: Those systems with pertinent positive or pertinent negative responses have been documented in the HPI. ROS Other: All systems not noted in ROS Statement are negative. Past Medical History Past Medical History: No Reported History Additional Past Medical History / Comment(s): chronic back pain History of Any Multi-Drug Resistant Organisms: None Reported Past Surgical History: Orthopedic Surgery Additional Past Surgical History / Comment(s): knee Past Psychological History: Anxiety Smoking Status: Current every day smoker Past Alcohol Use History: Abuse, Daily, Heavy Past Drug Use History: None Reported General Exam Limitations: no limitations General appearance: appears intoxicated, lethargic Head exam: Present: atraumatic, normocephalic Eye exam: Present: normal appearance, PERRL ENT exam: Present: mucous membranes dry Neck exam: Present: normal inspection, full ROM. Absent: tenderness Respiratory exam: Present: normal lung sounds bilaterally. Absent: respiratory distress Cardiovascular Exam: Present: regular rate, normal rhythm GI/Abdominal exam: Present: soft. Absent: distended, tenderness Extremities exam: Present: normal inspection, full ROM, normal capillary refill. Absent: pedal edema Neurological exam: Present: alert. Absent: motor sensory deficit Psychiatric exam: Present: agitated. Absent: suicidal ideation Skin exam: Present: warm, dry, intact. Absent: cyanosis, diaphoretic Course Vital Signs 03/19/17 03/19/17 13:55 14:35 Temperature 97.5 F L Pulse Rate 96 91 Respiratory 16 18 Rate Blood Pressure 129/68 103/57 O2 Sat by Pulse 96 98 Oximetry Medical Decision Making - Medical Decision Making 31-year-old male presenting with alcohol intoxication. Laboratory studies to reveal mild elevation in serum sodium at 148, serum alcohol level is 438. Urine drug screen is positive for cocaine. Patient will require to 18 hours until sober. He will be placed in observation awaiting clinical sobriety and reevaluation. - Lab Data Result diagrams: 03/19/17 14:00 03/19/17 14:00 Lab Results 03/19/17 03/19/17 03/19/17 Range/Units 14:00 14:00 14:57 WBC 10.2 (3.8-10.6) k/uL RBC 5.02 (4.30-5.90) m/uL Hgb 16.8 (13.0-17.5) gm/dL Hct 49.9 (39.0-53.0) % MCV 99.4 (80.0-100.0) fL MCH 33.4 (25.0-35.0) pg MCHC 33.6 (31.0-37.0) g/dL RDW 13.2 (11.5-15.5) % Plt Count 297 (150-450) k/uL Neutrophils % 54 % Lymphocytes % 36 % Monocytes % 5 % Eosinophils % 1 % Basophils % 1 % Neutrophils # 5.6 (1.3-7.7) k/uL Lymphocytes # 3.6 (1.0-4.8) k/uL Monocytes # 0.5 (0-1.0) k/uL Eosinophils # 0.1 (0-0.7) k/uL Basophils # 0.1 (0-0.2) k/uL Sodium 148 H (137-145) mmol/L Potassium 4.2 (3.5-5.1) mmol/L Chloride 110 H (98-107) mmol/L Carbon Dioxide 24 (22-30) mmol/L Anion Gap 14 mmol/L BUN 9 (9-20) mg/dL Creatinine 0.89 (0.66-1.25) mg/dL Est GFR (MDRD) Af Amer >60 (>60 ml/min/1.73 sqM) Est GFR (MDRD) Non-Af >60 (>60 ml/min/1.73 sqM) Glucose 90 (74-99) mg/dL Calcium 8.6 (8.4-10.2) mg/dL Magnesium 2.2 (1.6-2.3) mg/dL Total Bilirubin 0.2 (0.2-1.3) mg/dL AST 41 (17-59) U/L ALT 53 (21-72) U/L Alkaline Phosphatase 81 (38-126) U/L Total Protein 7.2 (6.3-8.2) g/dL Albumin 4.4 (3.5-5.0) g/dL Urine Opiates Screen Not Detected (NotDetected) Ur Oxycodone Screen Not Detected (NotDetected) Urine Methadone Screen Not Detected (NotDetected) Ur Propoxyphene Screen Not Detected (NotDetected) Ur Barbiturates Screen Not Detected (NotDetected) U Tricyclic Antidepress Not Detected (NotDetected) Ur Phencyclidine Scrn Not Detected (NotDetected) Ur Amphetamines Screen Not Detected (NotDetected) U Methamphetamines Scrn Not Detected (NotDetected) U Benzodiazepines Scrn Not Detected (NotDetected) Urine Cocaine Screen Detected H (NotDetected) U Marijuana (THC) Screen Not Detected (NotDetected) Serum Alcohol 438 mg/dL Disposition Clinical Impression: Alcoholic intoxication Disposition: ADMITTED IP TO THIS [facility] Condition: Stable Referrals: None,Stated [Primary Care Provider] - 1-2 days Decision to Admit Reason: Admit from EC Decision Date: 03/19/17 Decision Time: 15:51
[2017-03-19] MEDS ORDERED: ONDANSETRON 4 MG/2 ML VIAL IVP PRN (16:29)
[2017-03-19] MEDS ORDERED: MELATONIN 3 MG TABLET PO PRN (16:29)
--- NOTE | 2017-03-19 16:55 | P.HPIM ---
History of Present Illness H&P Date: 03/19/17 Chief Complaint: altered mentation Patient is a 31-year-old male with a past medical history of chronic low back pain, alcohol abuse, and depression who presented to the hospital today via EMS and police secondary to intoxication. In the ER he underwent an extensive evaluation. His initial vital signs were found to be within normal limits. Initial laboratory analysis was unremarkable other than a sodium of 148 and an alcohol level of 438. Initial urine drug screen was positive for cocaine. Due to his low sedation he was not stable for discharge home and therefore he will be admitted to observation. Patient is extremely lethargic when seen. He does not arouse to verbal stimulation or light touch. He does arouse to nailbed pressure. Once awake he is able to tell me that he drank "enough". He immediately falls back asleep. Nurse attempted to place a nasal trumpet and he woke up. He believes he has brought to ER by friends despite being brought in by EMS. He is unable to answer any other questions that his speech is garbled and unintelligible. All information is gathered from discussion with nursing, ER physician, and thorough record review of recent hospitalization on 02/12 through 02/18 to the mental health unit. He was also seen in the emergency department on 02/28. Per nursing he has more alert and awake when he initially arrived to the unit and denied any thoughts of harming himself or others. He had also admitted to the ER provider that he took an unknown amount of Xanax, however his urine drug screen was negative for benzos. He is currently unable to answer that question. He was here for suicidal ideation on 02/12/2017. On he presented to the emergency department with suicidal ideation. He was seen by the psychiatry department and they recommended him going home. Review of Systems Unable to obtain review of systems due to patient's intoxication and lethargy. ROS unobtainable: due to mental status Past Medical History Past Medical History: No Reported History Additional Past Medical History / Comment(s): chronic back pain, history of depression History of Any Multi-Drug Resistant Organisms: None Reported Past Surgical History: Orthopedic Surgery Additional Past Surgical History / Comment(s): knee Past Psychological History: Anxiety Smoking Status: Current every day smoker Past Alcohol Use History: Abuse, Daily, Heavy Past Drug Use History: None Reported - Past Family History Father Additional Family Medical History / Comment(s): Unable to obtain family history secondary altered mentation Medications and Allergies Home Medications Medication Instructions Recorded Confirmed Type QUEtiapine [SEROquel] 50 mg PO HS #30 tab 02/18/17 03/19/17 Rx Sertraline [Zoloft] 100 mg PO DAILY #30 tab 02/18/17 03/19/17 Rx Cyclobenzaprine [Flexeril] 10 mg PO BID PRN 03/19/17 03/19/17 History Gabapentin [Neurontin] 100 mg PO HS 03/19/17 03/19/17 History Ibuprofen [Motrin] 800 mg PO QID PRN 03/19/17 03/19/17 History traZODone HCL 50 - 100 mg PO HS PRN 03/19/17 03/19/17 History Allergies Allergy/AdvReac Type Severity Reaction Status Date / Time No Known Allergies Allergy Verified 03/19/17 14:20 Physical Exam Osteopathic Statement: *. No significant issues noted on an osteopathic structural exam other than those noted in the History and Physical/Consult. Vitals: Vital Signs Temp Pulse Resp BP Pulse Ox 03/19/17 16:04 88 18 103/79 98 03/19/17 14:35 91 18 103/57 98 03/19/17 13:55 97.5 F L 96 16 129/68 96 Intake and Output 03/19/17 03/19/17 03/19/17 06:59 14:59 22:59 Other: Weight 99.79 kg Patient Weight 03/20/17 06:59 Weight 99.79 kg General: non toxic, no distress, appears at stated age, normal weight, appears intoxicated Derm: no rashes, no lesions, no ulcers, no unusual ecchymoses, multiple tattoo Head: atraumatic, normocephalic, symmetric Eyes: EOMI, no lid lag, anicteric sclera, pupils equal round reactive to light ENT: no thrush , nearest patent, no pharyngeal erythema Neck: No thyromegaly, no cervical lymphadenopathy, trachea midline, supple Mouth: no lip lesion, mucus membranes dry Cardiovascular: S1S2 reg, no murmur, positive posterior tibial pulse bilateral, no edema , no JVD, no clubbing, no cyanosis, capillary refill less than 2 seconds Lungs: Decreased breath sounds bilateral bases, no rhonchi, no rales , no accessory muscle use Abdominal: soft, nontender to palpation, no guarding, no appreciable organomegaly, normal bowel sounds Ext: no gross muscle atrophy, pain all 4 extremities independently without difficulty, no contractures, Neuro: CN II-XI grossly intact, light touch intact all 4 extremities Psych: Lethargic, confused, flat affect Results CBC & Chem 7: 03/19/17 14:00 03/19/17 14:00 Labs: Abnormal Lab Results - Last 24 Hours (Table) 03/19/17 03/19/17 Range/Units 14:00 14:57 Sodium 148 H (137-145) mmol/L Chloride 110 H (98-107) mmol/L Urine Cocaine Screen Detected H (NotDetected) Thrombosis Risk Factor Assmnt - DVT/VTE Prophylaxis DVT/VTE Prophylaxis: Pharmacologic Prophylaxis ordered Assessment and Plan Plan: Alcohol intoxication -IV fluids -Neuro checks every 2 hours 4 then every 4 hours -Anticipate alcohol withdrawal and therefore patient was started on CIWA protocol -Banana bag 1 then start thiamine and folic acid supplementation in a.m. -Nothing by mouth until more awake and alert Polysubstance abuse with alcohol and cocaine -Neuro checks -Supportive care Hypernatremia, secondary to dehydration -IV fluids -Repeat blood work in a.m. Tobacco abuse -Nicotine replacement ordered -Cessation will be recommended in a.m. and patient more awake and alert Social stressors, patient homeless -Was discharged with senior living from the psychiatry unit Surrogate decision-maker: Patient too sedated to appoint anyone CODE STATUS:Full by default DVT prophylaxis: SCDS Discussed with: ED physician, nursing Anticipated discharge: 24-[address]: unknown A total of 50 minutes was spent on the care of this complex patient more than 50 % of the time was spent in counseling and care coordination.
[2017-03-19] MEDS ORDERED: SODIUM CHLORIDE 0.9% 1,000 ML with MVI, ADULT NO.4 WITH VIT K 10 ML, THIAMINE 100 MG, F... IV ONE ×4 (17:30)
[2017-03-19] MEDS: FAMOTIDINE 20 MG TAB PO SCH (19:31)
[2017-03-20 00:19] VITALS: BMI 25.5
[2017-03-20] MEDS: LORazepam 2 MG/ML INJ IV PRN ×3 (00:38→13:33)
[2017-03-20 07:40] LABS: CH 33.6; CHCM 33.1; HCT 45.4 % (39.0-53.0); HDW 2.17; MCH 33.7 pg (25.0-35.0); MCHC 33.1 g/dL (31.0-37.0); MCV 101.9 fL (80.0-100.0); Macrocytosis Slight; Mean Platelet Volume 7.2; RBC 4.46 m/uL (4.30-5.90); RDW 13.4 % (11.5-15.5); WBC 9.2 k/uL (3.8-10.6)
[2017-03-20 07:42] VITALS: RESP 18
[2017-03-20 07:57] LABS: ALT 49 U/L (21-72); AST 36 U/L (17-59); Alkaline Phosphatase 72 U/L (38-126); Anion Gap 12 mmol/L; Blood Urea Nitrogen 14 mg/dL (9-20); Calcium 8.7 mg/dL (8.4-10.2); Carbon Dioxide 24 mmol/L (22-30); Chloride 106 mmol/L (98-107); Glucose 82 mg/dL (74-99); Magnesium 1.8 mg/dL (1.6-2.3); Non-African American GFR(MDRD) >60 (>60 ml/min/1.73 sqM); Phosphorus 3.6 mg/dL (2.5-4.5); Potassium 4.2 mmol/L (3.5-5.1); Sodium 142 mmol/L (137-145); Total Bilirubin 0.3 mg/dL (0.2-1.3); Total Protein 6.5 g/dL (6.3-8.2)
--- NOTE | 2017-03-20 08:19 | P.PN ---
Progress Note - Text Progress Note Date: 03/20/17 Hospitalist Interval note: Patient s/e at bedside. Now alert and oriented X3. Does not recall the events of yesterday. Having symptoms of hangover with headache and nausea. He also complains of back pain worse with movement and better with rest. He denies that he was trying to harm himself by drinking too much alcohol yesterday. He also admits that his depression is poorly controlled. He is agreeable to having psych evaluate him. Vital signs: Temperature 98.5 heart rate 88 respirations 18 blood pressure 122/ 63 100% on room air General: non toxic, no distress, appears at stated age Derm: no rashes, no lesions Head: atraumatic, normocephalic, symmetric Eyes: EOMI, no lid lag, anicteric sclera ENT: no post nasal drip, no thrush Mouth: no lip lesion, mucus membranes moist Cardiovascular: S1S2 reg, no murmur, positive posterior tibial pulse bilateral, Lungs: CTA bilateral, no rhonchi, no rales , no accessory muscle use Abdominal: soft, nontender to palpation, no guarding, no appreciable organomegaly Ext: no gross muscle atrophy, no edema, no contractures Neuro: CN II-XI grossly intact, no focal neuro deficits Psych: Alert, oriented, appropriate affect Back: No stepped off noted on palpation of cervical, thoracic, and lumbar spinous processes. Increased tissue texture abnormality left thoracic and cervical spine with mild rotation to the right. Impression and plan: Alcohol intoxication -Patient appears sober at this time -Banana bag infusing -Denies suicidal ideation Depression -Psychiatric evaluation to ensure he does not need inpatient psychiatric admission after this severe alcohol intoxication Back pain consistent with thoracic strain -Check x-ray of thoracic spine -Flexeril 1 Patient is medically stable for discharge once thoracic spine x-ray is reviewed and psychiatry has evaluated the patient to ensure he does not need inpatient psychiatric admission. Princess Lin,
[2017-03-20] MEDS: FAMOTIDINE 20 MG TAB PO SCH ×2 (09:22→20:03)
--- NOTE | 2017-03-20 10:08 | XR ---
EXAMINATION TYPE: XR thoracic spine 2V DATE OF EXAM: 03/20/2017 CLINICAL HISTORY: Upper back pain TECHNIQUE: Frontal, lateral, and swimmer's view of thoracic spine are obtained. COMPARISON: None. FINDINGS: Thoracic spine show straightened alignment without evidence of acute fracture or dislocatio n. Slight scoliotic curvature in the upper to midthoracic spine is present on frontal images Vertebr al body heights and disc space heights are preserved in the thoracic spine. There is mild spurring an d disc space narrowing incidentally noted C5-C6 level on swimmer's view. Visualized ribs and pedicles are unremarkable bilaterally. IMPRESSION: Straightening of thoracic spine and slight scoliotic curvature otherwise fairly unremarka ble study.
[2017-03-20] MEDS: SODIUM CHLORIDE 0.9% 1,000 ML IV SCH ×3 (10:50→10:52)
[2017-03-20] MEDS: NICOTINE 21MG/24HR PATCH TRANSDERM SCH ×2 (10:50→20:03)
[2017-03-20] MEDS: THIAMINE 100 MG TAB PO SCH (13:30)
[2017-03-20] MEDS: FOLIC ACID 1 MG TAB PO SCH (13:30)
[2017-03-20] MEDS: ACETAMINOPHEN TAB 325 MG TAB PO PRN (20:13)
[2017-03-21] MEDS: ACETAMINOPHEN TAB 325 MG TAB PO PRN ×2 (03:06→08:04)
[2017-03-21 08:01] VITALS: BP 118/64; PULSE 66; TEMP 98.1
[2017-03-21] MEDS: FAMOTIDINE 20 MG TAB PO SCH (08:42)
[2017-03-21] MEDS: NICOTINE 21MG/24HR PATCH TRANSDERM SCH (08:43)
[2017-03-21] MEDS ORDERED: IBUPROFEN 600 MG TAB PO PRN (10:36)
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
[2017-03-21] MEDS: THIAMINE 100 MG TAB PO SCH (12:56)
[2017-03-21] MEDS: FOLIC ACID 1 MG TAB PO SCH (12:56)
[2017-03-21] MEDS: SODIUM CHLORIDE 0.9% 1,000 ML IV SCH (13:54)
== END 2017-03-21 14:33 | disposition home or self-care (01) ==
LOC: EC 13:47 → 3OBS 15:47
PROVIDERS: ADMIT Family Medicine; ATTEND Family Medicine
DX: F10.239 Alcohol dependence with withdrawal, unspecified (principal); K08.89 Other specified disorders of teeth and supporting structures; F10.229 Alcohol dependence with intoxication, unspecified; Y90.8 Blood alcohol level of 240 mg/100 ml or more; F14.10 Cocaine abuse, uncomplicated; F41.9 Anxiety disorder, unspecified; S29.012A Strain of muscle and tendon of back wall of thorax, initial encounter; F32.9 Major depressive disorder, single episode, unspecified; E87.0 Hyperosmolality and hypernatremia; E86.0 Dehydration; M54.5 Low back pain; G89.29 Other chronic pain; F17.200 Nicotine dependence, unspecified, uncomplicated; Z79.899 Other long term (current) drug therapy; Z59.0 Homelessness
CPT/HCPCS: 99284; 96361; 96374; 96376; 82075; 36415; 80053 ×2; 83735 ×2; 84100; 85025; 85027; 80306; 80320; 72070; G0378 ×3; S4990 ×2; J2060; J3411

== ENCOUNTER 2017-03-22 03:18 | Emergency (ER) | payer OTHER ==
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
--- NOTE | 2017-03-22 04:11 | XR ---
EXAM: XR Chest, 1 View CLINICAL HISTORY: Reason: Pain. Status post fall. TECHNIQUE: Frontal view of the chest. COMPARISON: 02/27/17 portable chest. FINDINGS: Lungs: Unremarkable. No consolidation. Pleural space: Unremarkable. No effusion or pneumothorax. Heart: Unremarkable. No cardiomegaly. Mediastinum: Unremarkable. Bones/joints: Slight leftward curvature. No acute displaced fracture. IMPRESSION: No definite acute intrathoracic sequela from trauma is seen.
--- NOTE | 2017-03-22 04:12 | XR ---
EXAM: XR Pelvis, 1 View CLINICAL HISTORY: Reason: Pain. Fall. TECHNIQUE: AP supine portable view of the pelvis. COMPARISON: No relevant prior studies available. FINDINGS: Bones/joints: The hips and bony pelvis are symmetric on this single image without acute displaced fracture or dislocation seen. Soft tissues: Unremarkable. IMPRESSION: Limited, without acute displaced fracture or dislocation seen.
--- NOTE | 2017-03-22 04:21 | CT ---
EXAM: CT Head Without Intravenous Contrast CLINICAL HISTORY: Reason: Pain. Status post fall. TECHNIQUE: Axial computed tomography images of the head/brain without intravenous contrast. CTDI is 60.30 mGy and DLP is 1096 mGy-cm. This CT exam was performed using one or more of the following dose reduction techniques: automated exposure control, adjustment of the mA and/or kV according to patient size, and/or use of iterative reconstruction technique. COMPARISON: 02/11/[address] FINDINGS: Brain: There is borderline generalized volume loss, greater than expected for the patient's age, unchanged in appearance. No bleed, midline shift or mass effect. Ventricles: Unremarkable. No hydrocephalus. Bones/joints: No acute fracture. Soft tissues: Unremarkable. Sinuses: Unremarkable as visualized. No acute sinusitis. Mastoid air cells: Unremarkable as visualized. No mastoid effusion. IMPRESSION: No new acute intracranial sequela from trauma is seen, as above. EXAM: CT Cervical Spine Without Intravenous Contrast CLINICAL HISTORY: Reason: Pain. Status post fall. TECHNIQUE: Axial computed tomography images of the cervical spine without intravenous contrast. CTDI is 17.40 mGy and DLP is present 340 mGy-cm. This CT exam was performed using one or more of the following dose reduction techniques: automated exposure control, adjustment of the mA and/or kV according to patient size, and/or use of iterative reconstruction technique. COMPARISON: 02/11/[address] FINDINGS: Note that there is mild motion artifact with imaging from the skull base through C5-6. Vertebrae: Vertebral body heights appear maintained without acute fracture seen, allowing for motion related artifact. Alignment is stable including minimal retrolisthesis of C5 upon C6 where there is again disc space narrowing and endplate degenerative change present. Discs/spinal canal/neural foramina: Mild reduction of the central canal and foraminal volumes at C5-6, stable. Soft tissues: Unremarkable. Lung apices: Unremarkable as visualized. IMPRESSION: 1. Images degraded by motion artifact. Allowing for this, no definite new acute osseous abnormality is seen. Clinical clearance of the cervical spine is still recommended. 2. C5-6 spondylosis and minor retrolisthesis, as above.
[2017-03-22] MEDS ORDERED: ACETAMINOPHEN TAB 500 MG TAB PO STA (10:34)
[2017-03-22 12:59] VITALS: RESP 16
[2017-03-22 15:10] VITALS: BP 126/60; PULSE 76; TEMP 97.8
== END 2017-03-22 16:09 | disposition home or self-care (01) ==
LOC: EC 03:18
DX: S00.81XA Abrasion of other part of head, initial encounter (principal); F32.9 Major depressive disorder, single episode, unspecified; F41.9 Anxiety disorder, unspecified; F17.200 Nicotine dependence, unspecified, uncomplicated; Z79.899 Other long term (current) drug therapy; W10.9XXA Fall (on) (from) unspecified stairs and steps, initial encounter; Y92.019 Unspecified place in single-family (private) house as the place of occurrence of the external cause
CPT/HCPCS: 70450; 71010; 72125; 72170; 80306; 82075; 99285

== ENCOUNTER 2017-03-23 05:37 | Inpatient (IN) | payer MEDICAID, OTHER ==
--- NOTE | 2017-03-23 06:11 | ED ---
General Adult HPI - General Chief complaint: Psychiatric Symptoms Stated complaint: Mental Health Time Seen by Provider: 03/23/17 05:45 Source: patient, RN notes reviewed, old records reviewed Mode of arrival: ambulatory Limitations: no limitations - History of Present Illness Initial comments: This is a 31 male to the ED, well known to staff, with suicidal ideation, recurrent ER visits for the same as well as positive alcohol intoxication. Patient says he is suicidal - Related Data Home Medications Medication Instructions Recorded Confirmed Cyclobenzaprine [Flexeril] 10 mg PO BID PRN 03/19/17 03/23/17 HYDROcodone/APAP 5-325MG [[place] 1 tab PO DAILY PRN 03/23/17 03/23/17 5-325] hydrALAZINE HCL [Apresoline] 25 mg PO BID 03/23/17 03/23/17 Previous Rx's Medication Instructions Recorded Famotidine [Pepcid] 20 mg PO DAILY #30 tablet 03/21/17 Folic Acid 1 mg PO DAILY #30 tablet 03/21/17 Ibuprofen [Motrin] 600 mg PO TID PRN #30 tab 03/21/17 Thiamine [Vitamin B-1] 100 mg PO DAILY #30 tablet 03/21/17 Gabapentin [Neurontin] 300 mg PO TID #45 cap 03/28/17 Nicotine Polacrilex [Nicorette] 2 mg BUCCAL Q2HR PRN #30 gum 03/28/17 QUEtiapine [SEROquel] 100 mg PO HS #30 tab 03/28/17 Sertraline [Zoloft] 100 mg PO DAILY #30 tab 03/28/17 Allergies Allergy/AdvReac Type Severity Reaction Status Date / Time No Known Allergies Allergy Verified 03/23/17 13:18 Review of Systems ROS Statement: Those systems with pertinent positive or pertinent negative responses have been documented in the HPI. ROS Other: All systems not noted in ROS Statement are negative. Past Medical History Past Medical History: No Reported History Additional Past Medical History / Comment(s): chronic back pain, history of depression History of Any Multi-Drug Resistant Organisms: None Reported Past Surgical History: Orthopedic Surgery Additional Past Surgical History / Comment(s): right knee Past Anesthesia/Blood Transfusion Reactions: No Reported Reaction Past Psychological History: Anxiety, Depression Smoking Status: Current every day smoker Past Alcohol Use History: Abuse, Daily, Heavy Past Drug Use History: None Reported - Past Family History Father Additional Family Medical History / Comment(s): Unable to obtain family history secondary altered mentation General Exam Limitations: no limitations General appearance: alert, in no apparent distress, appears intoxicated Head exam: Present: atraumatic, normocephalic, normal inspection Eye exam: Present: normal appearance, PERRL, EOMI. Absent: scleral icterus, conjunctival injection, periorbital swelling ENT exam: Present: normal exam, mucous membranes moist Neck exam: Present: normal inspection. Absent: tenderness, meningismus, lymphadenopathy Respiratory exam: Present: normal lung sounds bilaterally. Absent: respiratory distress, wheezes, rales, rhonchi, stridor Cardiovascular Exam: Present: regular rate, normal rhythm, normal heart sounds. Absent: systolic murmur, diastolic murmur, rubs, gallop, clicks GI/Abdominal exam: Present: soft, normal bowel sounds. Absent: distended, tenderness, guarding, rebound, rigid Extremities exam: Present: normal inspection, full ROM, normal capillary refill. Absent: tenderness, pedal edema, joint swelling, calf tenderness Back exam: Present: normal inspection Neurological exam: Present: alert, oriented X3, CN II-XII intact Psychiatric exam: Present: normal affect, normal mood Skin exam: Present: warm, dry, intact, normal color. Absent: rash Course Vital Signs 03/23/17 03/23/17 05:47 07:14 Temperature 97 F L Pulse Rate 92 71 Respiratory 16 16 Rate Blood Pressure 117/79 111/70 O2 Sat by Pulse 97 96 Oximetry - Reevaluation(s) Reevaluation #1: 03/23/17 06:10 patient is suicidal Reevaluation #2: 03/23/17 06:10 recodrs from yesterday are reviewed Medical Decision Making - Medical Decision Making 31 male seen evaluated by psychiatry, patient admitted for psychiatric evaluation and treatment Disposition Clinical Impression: Alcohol use disorder, Depression, Major depressive disorder, recurrent severe without psychotic features, Suicidal ideation Disposition: TRANSFER TO PSYCH HOSP/UNIT Condition: Fair
[2017-03-23] MEDS ORDERED: ZIPRASIDONE 20 MG VIAL IM PRN (17:35)
[2017-03-23] MEDS ORDERED: MAG HYDROX/AL HYDROX/SIMETH 30 ML CUP PO PRN (17:35)
[2017-03-23] MEDS ORDERED: MAGNESIUM HYDROXIDE 2,400 MG/10 ML CUP PO PRN (17:35)
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
[2017-03-23] MEDS: IBUPROFEN 600 MG TAB PO PRN (18:35)
[2017-03-23] MEDS: NICOTINE 21MG/24HR PATCH TRANSDERM SCH (18:36)
[2017-03-23] MEDS: HYDROcodone/APAP 5-325MG 1 EACH TAB PO PRN (18:36)
[2017-03-23] MEDS: CYCLOBENZAPRINE 10 MG TAB PO PRN (18:39)
[2017-03-23] MEDS: LORazepam 1 MG TAB PO PRN (18:41)
[2017-03-23] MEDS ORDERED: QUEtiapine 50 MG TAB PO SCH (21:00)
[2017-03-23] MEDS: BACITRACIN 500 UNIT/GM OINT 28.4 GM TUBE TOPICAL SCH (21:30)
[2017-03-23] MEDS: hydrALAZINE HCL 25 MG TAB PO SCH (21:30)
[2017-03-23] MEDS: GABAPENTIN 100 MG CAP PO SCH (21:30)
[2017-03-24] MEDS: NICOTINE 21MG/24HR PATCH TRANSDERM SCH (08:44)
[2017-03-24] MEDS: FAMOTIDINE 20 MG TAB PO SCH (08:45)
[2017-03-24] MEDS: SERTRALINE 100 MG TAB PO SCH (08:45)
[2017-03-24] MEDS: BACITRACIN 500 UNIT/GM OINT 28.4 GM TUBE TOPICAL SCH ×2 (08:45→21:16)
[2017-03-24] MEDS: hydrALAZINE HCL 25 MG TAB PO SCH ×2 (08:46→21:15)
[2017-03-24] MEDS: HYDROcodone/APAP 5-325MG 1 EACH TAB PO PRN (08:48)
[2017-03-24] MEDS: IBUPROFEN 600 MG TAB PO PRN ×3 (08:50→21:19)
[2017-03-24 10:57] LABS: Hemoglobin A1C 4.5 % (4.2-6.1)
[2017-03-24] MEDS: LORazepam 1 MG TAB PO PRN (11:20)
[2017-03-24] MEDS: FOLIC ACID 1 MG TAB PO SCH (12:47)
[2017-03-24] MEDS: THIAMINE 100 MG TAB PO SCH (12:47)
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
[2017-03-24] MEDS: GABAPENTIN 100 MG CAP PO SCH (21:16)
[2017-03-24] MEDS: QUEtiapine 100 MG TAB PO SCH (21:16)
[2017-03-24] MEDS: CYCLOBENZAPRINE 10 MG TAB PO PRN (21:20)
[2017-03-25] MEDS: NICOTINE 21MG/24HR PATCH TRANSDERM SCH (09:02)
[2017-03-25] MEDS: FAMOTIDINE 20 MG TAB PO SCH (09:03)
[2017-03-25] MEDS: hydrALAZINE HCL 25 MG TAB PO SCH ×2 (09:03→21:10)
[2017-03-25] MEDS: SERTRALINE 100 MG TAB PO SCH (09:03)
[2017-03-25] MEDS: HYDROcodone/APAP 5-325MG 1 EACH TAB PO PRN (09:05)
[2017-03-25] MEDS: IBUPROFEN 600 MG TAB PO PRN ×2 (09:06→21:13)
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
[2017-03-25] MEDS: BACITRACIN 500 UNIT/GM OINT 28.4 GM TUBE TOPICAL SCH ×2 (10:20→21:10)
[2017-03-25] MEDS: THIAMINE 100 MG TAB PO SCH (12:05)
[2017-03-25] MEDS: FOLIC ACID 1 MG TAB PO SCH (12:05)
[2017-03-25] MEDS: LORazepam 1 MG TAB PO PRN (12:06)
[2017-03-25] MEDS: GABAPENTIN 100 MG CAP PO SCH (21:10)
[2017-03-25] MEDS: QUEtiapine 100 MG TAB PO SCH (21:10)
[2017-03-25] MEDS: CYCLOBENZAPRINE 10 MG TAB PO PRN (21:13)
[2017-03-26] MEDS: hydrALAZINE HCL 25 MG TAB PO SCH ×2 (09:23→21:15)
[2017-03-26] MEDS: SERTRALINE 100 MG TAB PO SCH (09:23)
[2017-03-26] MEDS: FAMOTIDINE 20 MG TAB PO SCH (09:23)
[2017-03-26] MEDS: NICOTINE 21MG/24HR PATCH TRANSDERM SCH (09:23)
[2017-03-26] MEDS: GABAPENTIN 300 MG CAP PO SCH ×3 (09:24→21:17)
[2017-03-26] MEDS: HYDROcodone/APAP 5-325MG 1 EACH TAB PO PRN (09:24)
--- NOTE | 2017-03-26 09:24 | P.PN ---
Progress Note - Text Interval history: The patient is found in his room he follows me to an interview room. He reports that his mood is still down. He still has hopeless thinking and he feels depressed. He states he has been making an effort to go to groups. He did contact [place] in found out that he just needs to provide something with his name on it such as a utility bill to verify residence. He plans on calling his father today. He expresses some concern as to how his father will react. The patient indicates that he is in pain he chronically has back pain. He asked if the Neurontin could be increased. He previously took a much higher dose than he is currently scheduled. He has no questions regarding his psychotropic medication. Mental status exam: The patient is alert he is dressed in his own clothing. Eye contact is appropriate speech is fluent spontaneous nonpressured. He keeps his head down during the conversation with little eye contact. He speaks quietly. He is cooperative and easily directed. He endorses a depressed mood with some hopeless thinking. He feels safe in the hospital he is reporting no homicidal ideation intent or plan. He endorses no auditory or visual hallucinations or any specific delusions. There is no observable evidence of psychosis. He demonstrates no verbal or physical aggressiveness. He demonstrates no abnormal involuntary movements. He remains oriented to person place and date. Plan: The patient will continue on his current psychotropic medications. Neurontin will be increased to 300 mg 3 times a day. We discussed the importance of him attending rehab on the . We discussed potential obstacles he may encounter while there. He has a goal of making to phone calls today 1 to his father in the other 2 obtain paperwork needed for [place]. Vital signs reviewed. We will continue to monitor him for safety.
[2017-03-26] MEDS: IBUPROFEN 600 MG TAB PO PRN ×2 (09:25→21:18)
[2017-03-26] MEDS: BACITRACIN 500 UNIT/GM OINT 28.4 GM TUBE TOPICAL SCH ×2 (09:32→22:22)
[2017-03-26] MEDS: FOLIC ACID 1 MG TAB PO SCH (12:36)
[2017-03-26] MEDS: THIAMINE 100 MG TAB PO SCH (12:36)
[2017-03-26] MEDS: QUEtiapine 100 MG TAB PO SCH (21:16)
[2017-03-26] MEDS: CYCLOBENZAPRINE 10 MG TAB PO PRN (21:17)
--- NOTE | 2017-03-27 09:18 | P.PN ---
Progress Note - Text Interval history: The patient is found in the hallway he follows me to an interview room. He reports having some difficulty sleeping last night frequently waking. He was unable to reach his father or sister yesterday. He is hoping they can provide assistance after he is discharged here and before he goes to rehab on the . The patient states he has been going to groups. He continues to have some hopelessness thinking. We reviewed his psychotropic medication he has no questions or concerns regarding those medications. Mental status exam: The patient is alert he is dressed in his own clothing hygiene grooming adequate. He infrequently makes eye contact he is soft-spoken he frequently looks down at the floor. He endorses a mood that's down and anxious. He reports some ongoing hopelessness thinking. He feels safe here in the hospital. He is reporting no homicidal ideation. He is describing no auditory or visual hallucinations or specific delusions. There is no observable evidence of psychosis. He demonstrates no agitated behavior. He does not appear hypomanic or manic. He remains oriented to person place and date. He maintains a constricted to dysphoric affect throughout the session. Plan: The patient will continue on his current psychotropic medications we will consider titrating the Zoloft further. Vital signs reviewed. He is encouraged to participate in the milieu we will monitor him for safety. He states he will continue to make efforts to contact his family. He verbalizes a continued commitment to attend inpatient chemical dependency treatment on the .
[2017-03-27] MEDS: NICOTINE 21MG/24HR PATCH TRANSDERM SCH (09:19)
[2017-03-27] MEDS: hydrALAZINE HCL 25 MG TAB PO SCH ×2 (09:19→21:29)
[2017-03-27] MEDS: SERTRALINE 100 MG TAB PO SCH (09:19)
[2017-03-27] MEDS: FAMOTIDINE 20 MG TAB PO SCH (09:19)
[2017-03-27] MEDS: GABAPENTIN 300 MG CAP PO SCH ×3 (09:19→21:29)
[2017-03-27] MEDS: BACITRACIN 500 UNIT/GM OINT 28.4 GM TUBE TOPICAL SCH ×2 (09:20→22:38)
[2017-03-27] MEDS: IBUPROFEN 600 MG TAB PO PRN ×2 (09:21→21:30)
[2017-03-27] MEDS: HYDROcodone/APAP 5-325MG 1 EACH TAB PO PRN (09:22)
[2017-03-27] MEDS: NICOTINE POLACRILEX 2 MG GUM BUCCAL PRN ×4 (09:34→21:33)
[2017-03-27] MEDS: FOLIC ACID 1 MG TAB PO SCH (11:45)
[2017-03-27] MEDS: THIAMINE 100 MG TAB PO SCH (11:45)
[2017-03-27] MEDS: LORazepam 1 MG TAB PO PRN (21:30)
[2017-03-27] MEDS: CYCLOBENZAPRINE 10 MG TAB PO PRN (21:30)
[2017-03-27] MEDS: QUEtiapine 100 MG TAB PO SCH (22:39)
[2017-03-28 06:40] VITALS: BP 114/55; PULSE 70; RESP 16; TEMP 97.9
[2017-03-28] MEDS: FAMOTIDINE 20 MG TAB PO SCH (09:16)
[2017-03-28] MEDS: FOLIC ACID 1 MG TAB PO SCH (09:16)
[2017-03-28] MEDS: BACITRACIN 500 UNIT/GM OINT 28.4 GM TUBE TOPICAL SCH (09:16)
[2017-03-28] MEDS: hydrALAZINE HCL 25 MG TAB PO SCH (09:16)
[2017-03-28] MEDS: GABAPENTIN 300 MG CAP PO SCH (09:16)
[2017-03-28] MEDS: THIAMINE 100 MG TAB PO SCH (09:17)
[2017-03-28] MEDS: SERTRALINE 100 MG TAB PO SCH (09:17)
[2017-03-28] MEDS: HYDROcodone/APAP 5-325MG 1 EACH TAB PO PRN (09:18)
[2017-03-28] MEDS: IBUPROFEN 600 MG TAB PO PRN (09:19)
--- NOTE | 2017-03-28 11:15 | P.PN ---
Progress Note - Text Interval history: The patient is found in the library he follows me to an interview room. He reports his mood is slowly improving. He is frustrated that he has not gotten a response from his father or sister. He was hoping to spend time with them until he was placed at [facility] over the next week. He discussed having struggles remaining sober after discharge. We discussed strategies he could employ. He reports he did sleep last night he's been attending meals. He has no questions regarding medications. Mental status exam: The patient is alert and seated calmly in his chair. He demonstrates adequate hygiene grooming he is dressed casually in his own clothing. Eye contact is improved. Speech is fluent spontaneous nonpressured. He reports that his moods improving he is reporting no acute suicidal or homicidal ideation intent or plan at this time. He finds himself frustrated that he has not been in contact with his family yet despite his efforts. He is endorsing no auditory or visual hallucinations or specific delusions. There is no observed evidence of psychosis. He does not appear hypomanic or manic. Insight and judgment are improving. He demonstrates no verbal or physical aggressiveness. Plan: The patient will continue on his current medication. It appears he is currently stabilizing. We will anticipate a discharge tomorrow. He plans on staying with friends if he cannot get a hold of his family. Long Term placement might be more appropriate to eliminate exposure to substance use. We discussed having him participate in AA meetings after discharge. He continues to state he intends to attend inpatient chemical dependency treatment on the
[2017-03-28] MEDS ORDERED: LORazepam 1 MG TAB PO PRN (11:23)
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
== END 2017-03-28 14:35 | disposition home or self-care (01) | DRG 751 ==
LOC: EC 05:37 → 3MHU 16:36
PROVIDERS: ADMIT Psychiatry & Neurology Psychiatry; ATTEND Psychiatry & Neurology Psychiatry
DX: F33.2 Major depressive disorder, recurrent severe without psychotic features (principal); R45.851 Suicidal ideations; F10.20 Alcohol dependence, uncomplicated; F41.0 Panic disorder [episodic paroxysmal anxiety]; G89.29 Other chronic pain; G47.9 Sleep disorder, unspecified; M54.9 Dorsalgia, unspecified; M25.569 Pain in unspecified knee; F17.200 Nicotine dependence, unspecified, uncomplicated; Z79.899 Other long term (current) drug therapy; Z59.0 Homelessness; Z81.8 Family history of other mental and behavioral disorders
CPT/HCPCS: 80061; 82075; 83036; 84443; 99285

== ENCOUNTER 2017-10-19 22:49 | Emergency (ER) | payer MEDICAID, OTHER ==
[2017-10-19] MEDS ORDERED: KETOROLAC 30 MG/ML 1 ML VIAL IM STA (23:46)
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
--- NOTE | 2017-10-20 00:34 | XR ---
EXAMINATION TYPE: XR hand complete RT DATE OF EXAM: 10/19/2017 COMPARISON: NONE HISTORY: Pain in the hand TECHNIQUE: 3 views FINDINGS: There is impacted transverse fracture of the neck of the distal fourth metacarpal. There is no dislocation. Joint spaces are normal. The digits appear intact. IMPRESSION: Acute slightly impacted fourth metacarpal head fracture.
--- NOTE | 2017-10-20 00:40 | XR ---
EXAMINATION TYPE: XR shoulder complete RT DATE OF EXAM: 10/19/2017 COMPARISON: NONE HISTORY: Right shoulder pain TECHNIQUE: 3 views FINDINGS: I see no fracture nor dislocation. Joint spaces are normal. There are no pathologic calcifi cations. IMPRESSION: Negative right shoulder exam.
--- NOTE | 2017-10-20 00:41 | XR ---
EXAMINATION TYPE: XR knee complete RT DATE OF EXAM: 10/19/2017 COMPARISON: NONE HISTORY: Knee pain TECHNIQUE: 3 views FINDINGS: I see no fracture nor dislocation. Joint spaces are normal. There are no pathologic calcifi cations. There is no sign of knee joint effusion. IMPRESSION: Negative right knee exam.
[2017-10-20 04:27] VITALS: BP 110/67; PULSE 83; RESP 19; TEMP 97.6
== END 2017-10-20 04:54 | disposition home or self-care (01) ==
LOC: EC 22:49
DX: S62.334A Displaced fracture of neck of fourth metacarpal bone, right hand, initial encounter for closed fracture (principal); M25.511 Pain in right shoulder; M25.561 Pain in right knee; F10.120 Alcohol abuse with intoxication, uncomplicated; F32.9 Major depressive disorder, single episode, unspecified; F17.200 Nicotine dependence, unspecified, uncomplicated; Z98.890 Other specified postprocedural states; Z79.891 Long term (current) use of opiate analgesic; Z79.899 Other long term (current) drug therapy; Y04.0XXA Assault by unarmed brawl or fight, initial encounter
CPT/HCPCS: 99284; 29125; 96372; 73030; 73130; 73562; J1885

== ENCOUNTER 2017-10-27 00:05 | Inpatient (IN) | payer MEDICAID, OTHER ==
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
[2017-10-27 09:22] LABS: Amphetamine Screen,Urine Not Detected (NotDetected); Barbiturate Screen,Urine Not Detected (NotDetected); Benzodiazepines Screen,Urine Not Detected (NotDetected); Cocaine Screen,Urine Detected (NotDetected); Methadone Screen, Urine Not Detected (NotDetected); Opiate Screen,Urine Not Detected (NotDetected); Oxycodone Screen, Urine Not Detected (NotDetected); Phencyclidine Screen,Urine Not Detected (NotDetected); Tricyclic Antidepressant,Urine Not Detected (NotDetected); Urn Cannabinoid Scrn Not Detected (NotDetected)
[2017-10-27] MEDS ORDERED: MAG HYDROX/AL HYDROX/SIMETH 30 ML CUP PO PRN (10:08)
[2017-10-27] MEDS ORDERED: MAGNESIUM HYDROXIDE 2,400 MG/10 ML CUP PO PRN (10:08)
[2017-10-27] MEDS ORDERED: ZIPRASIDONE 20 MG VIAL IM PRN (10:08)
[2017-10-27 10:52] VITALS: BMI 27.0
[2017-10-27] MEDS: LORazepam 1 MG TAB PO PRN (12:12)
[2017-10-27] MEDS: CYCLOBENZAPRINE 10 MG TAB PO PRN ×2 (12:12→20:06)
[2017-10-27] MEDS: IBUPROFEN 800 MG TAB PO PRN ×2 (12:12→20:06)
[2017-10-27] MEDS: NICOTINE POLACRILEX 2 MG GUM BUCCAL PRN (12:15)
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
[2017-10-27] MEDS: THIAMINE 100 MG TAB PO SCH (13:53)
[2017-10-27] MEDS: FOLIC ACID 1 MG TAB PO SCH (13:53)
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
[2017-10-27] MEDS: ACETAMINOPHEN TAB 325 MG TAB PO PRN (16:54)
[2017-10-27] MEDS: LORazepam 1 MG TAB PO SCH ×2 (16:54→20:06)
[2017-10-27] MEDS ORDERED: QUEtiapine 100 MG TAB PO SCH (21:00)
[2017-10-28] MEDS: THIAMINE 100 MG TAB PO SCH (08:23)
[2017-10-28] MEDS: LORATADINE 10 MG TAB PO SCH (08:23)
[2017-10-28] MEDS: LORazepam 1 MG TAB PO SCH (08:23)
[2017-10-28] MEDS: FOLIC ACID 1 MG TAB PO SCH (08:23)
[2017-10-28] MEDS: IBUPROFEN 800 MG TAB PO PRN ×2 (08:24→16:47)
[2017-10-28] MEDS: NICOTINE POLACRILEX 2 MG GUM BUCCAL PRN ×3 (08:27→18:37)
--- NOTE | 2017-10-28 10:29 | XR ---
EXAMINATION TYPE: XR hand complete RT DATE OF EXAM: 10/28/2017 CLINICAL HISTORY: pain TECHNIQUE: Frontal, lateral and oblique images of the right hand are obtained. COMPARISON: 10/19/2017 FINDINGS: Again noted is partially impacted partially angulated fracture involving the neck of the fo urth right metacarpal. No significant callus formation is identified in the interval. Soft tissue swe lling persists although is improved. No additional fracture seen. The joint spaces appear within norm al limits. IMPRESSION: No significant interval change in fracture neck of the fourth right metacarpal.
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
[2017-10-28 11:36] LABS: Basophils % (A) 0 %; Eosinophils # (A) 0.1 k/uL (0-0.7); Eosinophils % (A) 1 %; HCT 46.6 % (39.0-53.0); HGB 15.6 gm/dL (13.0-17.5); Lymphocytes # (A) 1.4 k/uL (1.0-4.8); Lymphocytes % (A) 14 %; MCH 31.7 pg (25.0-35.0); MCHC 33.6 g/dL (31.0-37.0); MCV 94.5 fL (80.0-100.0); Mean Platelet Volume 7.4; Monocytes # (A) 0.4 k/uL (0-1.0); Monocytes % (A) 4 %; Neutrophils # (A) 7.5 k/uL (1.3-7.7); Neutrophils % (A) 79 %; Platelet Count 194 k/uL (150-450); RBC 4.93 m/uL (4.30-5.90); RDW 12.6 % (11.5-15.5); WBC 9.5 k/uL (3.8-10.6)
[2017-10-28 12:04] LABS: ALT 57 U/L (21-72); AST 57 U/L (17-59); Albumin 3.7 g/dL (3.5-5.0); Alkaline Phosphatase 96 U/L (38-126); Anion Gap 9 mmol/L; Blood Urea Nitrogen 15 mg/dL (9-20); Calcium 9.5 mg/dL (8.4-10.2); Carbon Dioxide 28 mmol/L (22-30); Chloride 105 mmol/L (98-107); Glucose 101 mg/dL (74-99); Potassium 4.3 mmol/L (3.5-5.1); Sodium 142 mmol/L (137-145); Total Bilirubin 1.3 mg/dL (0.2-1.3); Total Protein 6.3 g/dL (6.3-8.2)
[2017-10-28] MEDS: ACETAMINOPHEN TAB 325 MG TAB PO PRN ×2 (12:32→22:08)
[2017-10-28] MEDS: LORazepam 1 MG TAB PO PRN (12:32)
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
[2017-10-28] MEDS ORDERED: QUEtiapine 50 MG TAB PO SCH (21:00)
[2017-10-29] MEDS: GABAPENTIN 300 MG CAP PO SCH ×3 (09:29→21:07)
[2017-10-29] MEDS: LORATADINE 10 MG TAB PO SCH (09:29)
[2017-10-29] MEDS: IBUPROFEN 800 MG TAB PO PRN (09:31)
[2017-10-29] MEDS: LORazepam 1 MG TAB PO PRN ×2 (09:32→21:28)
--- NOTE | 2017-10-29 09:34 | P.PN ---
Progress Note - Text Progress Note Date: 10/29/17 Patient was seen for a follow-up examination. He slept better last night with 150 mg of Seroquel but, he said he didn't sleep the whole night. He has been staying by himself most of the time in his room. He has not been socializing with other patients or attending groups regularly. He continues to be preoccupied with taking narcotics and is asking how come he cannot have them. Patient was counseled. The patient said he had quit the school in 11th grade since he went to work. Patient said he had difficulty in focusing when he was growing up. But he said he did well in his studies. He had played football and basketball. He was outgoing and had lots of friends. He denies any history suggestive of personality issues. He has a long history of multiple depressive episodes. He also has some episodes in which he was hyperactive talkative had lots of energy etc. He also has a long history of alcohol abuse and behavioral and legal problems because of it. He also abuses cocaine here and there. This is a white ambulatory male with adequate hygiene. He does not show any psychomotor agitation or retardation. His speech is spontaneous and goal- directed. His mood is dysphoric and affect is somewhat constricted in range. He denies hallucinations, delusional thinking, suicidal and homicidal thoughts. He is well oriented with adequate memory concentration general fund of knowledge etc. Diagnostic impression: Bipolar 1 disorder most recent episode depressed moderate F 31.32. Alcohol use disorder severe F 10.20. Cocaine use disorder mild to moderate F 14.20. 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 NKDA. Partially impacted fracture of the neck of right fourth metacarpal bone. Plan: Increase Seroquel to 200 mg at bedtime. Other mood stabilizers were discussed with him including Depakote and lithium and Trileptal. But he asked if he can be on Neurontin for what he calls and has peripheral neuropathy. Since Neurontin is also used sometimes for more stabilization, it was agreed to start him on 600 mg 3 times a day. Adjust the dose as necessary.
[2017-10-29] MEDS: ACETAMINOPHEN TAB 325 MG TAB PO PRN ×3 (10:18→18:58)
[2017-10-29] MEDS: NICOTINE POLACRILEX 2 MG GUM BUCCAL PRN ×3 (10:19→21:30)
[2017-10-29] MEDS: THIAMINE 100 MG TAB PO SCH (12:09)
[2017-10-29] MEDS: FOLIC ACID 1 MG TAB PO SCH (12:09)
[2017-10-29] MEDS ORDERED: QUEtiapine 200 MG TAB PO SCH (21:00)
[2017-10-30 07:03] VITALS: BP 127/77; PULSE 94; RESP 16; TEMP 97.6
[2017-10-30] MEDS: LORATADINE 10 MG TAB PO SCH (08:34)
[2017-10-30] MEDS: GABAPENTIN 300 MG CAP PO SCH (08:34)
[2017-10-30] MEDS: ACETAMINOPHEN TAB 325 MG TAB PO PRN (08:35)
[2017-10-30] MEDS: NICOTINE POLACRILEX 2 MG GUM BUCCAL PRN ×2 (08:36→10:53)
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
[2017-10-30] MEDS: LORazepam 1 MG TAB PO PRN (10:52)
[2017-10-30] MEDS: THIAMINE 100 MG TAB PO SCH (10:53)
[2017-10-30] MEDS: FOLIC ACID 1 MG TAB PO SCH (10:53)
[2017-10-30] MEDS: IBUPROFEN 800 MG TAB PO PRN (10:53)
== END 2017-10-30 12:10 | disposition home or self-care (01) | DRG 885 ==
LOC: EC 00:05 → 3MHU 09:33
PROVIDERS: ADMIT Psychiatry & Neurology Psychiatry; ATTEND Psychiatry & Neurology Psychiatry
DX: F31.32 Bipolar disorder, current episode depressed, moderate (principal); R45.851 Suicidal ideations; F41.9 Anxiety disorder, unspecified; F10.10 Alcohol abuse, uncomplicated; F11.10 Opioid abuse, uncomplicated; F14.10 Cocaine abuse, uncomplicated; F17.200 Nicotine dependence, unspecified, uncomplicated; Z59.0 Homelessness; Z65.3 Problems related to other legal circumstances; Z79.899 Other long term (current) drug therapy; Z81.8 Family history of other mental and behavioral disorders; G62.9 Polyneuropathy, unspecified; Z56.0 Unemployment, unspecified; M54.9 Dorsalgia, unspecified; G89.29 Other chronic pain; S62.334 Displaced fracture of neck of fourth metacarpal bone, right hand; Y04.0XXD Assault by unarmed brawl or fight, subsequent encounter; S62.330D Displaced fracture of neck of second metacarpal bone, right hand, subsequent encounter for fracture with routine healing
CPT/HCPCS: 80053; 80306; 82075; 84443; 85025; 99285

== ENCOUNTER 2018-01-26 08:35 | Emergency (ER) | payer OTHER ==
[2018-01-26 08:47] VITALS: TEMP 97.7
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
--- NOTE | 2018-01-26 10:08 | XR ---
EXAMINATION TYPE: XR ribs bilat w pa chest x-ray , 10 VIEWS DATE OF EXAM ORDERED: 01/26/2018 HISTORY: Pain. COMPARISON: Previous chest x-ray dated 03/22/2017. FINDINGS: The lungs are clear. Pleural space are clear. The heart is not enlarged. No displaced rib fracture is seen. No pneumothorax is seen. IMPRESSION: NORMAL CHEST AND BILATERAL RIBS.
[2018-01-26 11:24] LABS: Glucose,Whole Blood 124 mg/dL (75-99)
[2018-01-26 17:44] VITALS: BP 124/66; PULSE 102; RESP 16
== END 2018-01-26 20:21 | disposition home or self-care (01) ==
LOC: EC 08:35
DX: S20.212A Contusion of left front wall of thorax, initial encounter (principal); S20.211A Contusion of right front wall of thorax, initial encounter; F10.120 Alcohol abuse with intoxication, uncomplicated; F17.200 Nicotine dependence, unspecified, uncomplicated; Y04.0XXA Assault by unarmed brawl or fight, initial encounter
CPT/HCPCS: 36415; 71111; 82075; 99284

== ENCOUNTER 2018-02-10 04:29 | Inpatient (IN) | payer MEDICAID, OTHER ==
--- NOTE | 2018-02-10 04:46 | ED ---
General Adult HPI - General Source: patient Mode of arrival: ambulatory Limitations: no limitations <Karie Diamond - Last Filed: 02/10/18 08:29> <Jorge Alicia - Last Filed: 02/10/18 16:53> - General Chief complaint: Psychiatric Symptoms Stated complaint: mental health Time Seen by Provider: 02/10/18 04:46 - History of Present Illness Initial comments: Patient is a 32 yo male with PMH of depression who presents to the ED for evaluation of suicidal thoughts. Patient reports that he has a history of depression and suicide attempts by overdose in the past. He states that he has previously been on antidepressant medications but has not been compliant recently. Patient states that he has been drinking tonight and plans to shoot himself. He denies any ingestions or attempts to hurt himself but states he began seriously thinking about it so he came to the ER. Patient also reports he has been coughing for 3 months and believes he has water in his lungs. He states he coughs up clear phlegm. He denies any URI symptoms or seasonal allergies. (Karie Diamond) - Related Data Home Medications Medication Instructions Recorded Confirmed Ibuprofen [Motrin] 800 mg PO Q8H PRN 07/14/17 10/30/17 Previous Rx's Medication Instructions Recorded Gabapentin [Neurontin] 600 mg PO TID 30 Days #90 cap 10/30/17 Loratadine [Claritin] 10 mg PO DAILY 30 Days #30 tab 10/30/17 QUEtiapine [SEROquel] 200 mg PO HS 30 Days #30 tab 10/30/17 Allergies Allergy/AdvReac Type Severity Reaction Status Date / Time No Known Allergies Allergy Verified 02/10/18 14:29 Review of Systems ROS Other: All systems not noted in ROS Statement are negative. <Karie Diamond - Last Filed: 02/10/18 08:29> ROS Other: All systems not noted in ROS Statement are negative. <Jorge Alicia - Last Filed: 02/10/18 16:53> ROS Statement: Those systems with pertinent positive or pertinent negative responses have been documented in the HPI. Past Medical History Past Medical History: No Reported History Additional Past Medical History / Comment(s): chronic back pain, history of depression etoh abuse History of Any Multi-Drug Resistant Organisms: None Reported Past Surgical History: Orthopedic Surgery Additional Past Surgical History / Comment(s): right knee Past Anesthesia/Blood Transfusion Reactions: No Reported Reaction Past Psychological History: Anxiety, Depression Smoking Status: Current every day smoker Past Alcohol Use History: Abuse, Daily Past Drug Use History: None Reported - Past Family History Father History Unknown: Yes Additional Family Medical History / Comment(s): Unable to obtain family history secondary altered mentation <Karie Diamond - Last Filed: 02/10/18 08:29> General Exam Limitations: no limitations <Karie Diamond - Last Filed: 02/10/18 08:29> <Jorge Alicia - Last Filed: 02/10/18 16:53> - General Exam Comments Initial Comments: GENERAL: Appears intoxicated, in no acute distress HENT: Normocephalic, Atraumatic. EYES: The sclera were anicteric and conjunctiva were pink and moist. Extraocular movements were intact and pupils were equal round and reactive to light. Eyelids were unremarkable. PULMONARY: Unlabored respirations. CARDIOVASCULAR: regular rate and rhythm ABDOMEN: Soft and nontender with normal bowel sounds. SKIN: Skin is clear with no lesions or rashes and otherwise unremarkable. NEUROLOGIC: Patient is alert and oriented x3. Cranial nerves II through XII are grossly intact. Motor and sensory are also intact. Slurred speech, normal volume and content. Symmetrical smile. MUSCULOSKELETAL: Normal extremities with adequate strength and full range of motion. No lower extremity swelling or edema. No calf tenderness. LYMPHATICS: No significant lymphadenopathy is noted PSYCHIATRIC: Depressed, suicidal Limitations: None (Karie Diamond) Vital Signs 02/10/18 04:34 Temperature 97.7 F Pulse Rate 99 Respiratory 16 Rate Blood Pressure 123/79 O2 Sat by Pulse 93 L Oximetry Medical Decision Making - Lab Data Result diagrams: 02/10/18 06:46 02/10/18 06:46 <Karie Diamond - Last Filed: 02/10/18 08:29> - Lab Data Result diagrams: 02/10/18 06:46 02/10/18 06:46 - Radiology Data Radiology results: image reviewed (Chest x-ray shows no acute process) <Jorge Alicia - Last Filed: 02/10/18 16:53> - Medical Decision Making Patient with a history of depression presenting to the emergency department intoxicated and stating that he wants to shoot himself Labs and imaging were ordered Labs unremarkable aside from some evidence of dehydration and positive urine drug screen for marijuana and cocaine Patient's serum alcohol elevated, will be evaluated by psychiatry when sober Patient has slept comfortably throughout his ED stay Patient care signed out to Dr. Alicia who will follow up on psychiatry evaluation and recommendations (Karie Diamond) Case was signed out to me with anticipation of psychiatric admission. Patient was seen by mental health services, who will admit. (Jorge Alicia) - Lab Data Lab Results 02/10/18 02/10/18 02/10/18 Range/Units 05:00 05:00 06:46 WBC (3.8-10.6) k/uL RBC (4.30-5.90) m/uL Hgb (13.0-17.5) gm/dL Hct (39.0-53.0) % MCV (80.0-100.0) fL MCH (25.0-35.0) pg MCHC (31.0-37.0) g/dL RDW (11.5-15.5) % Plt Count (150-450) k/uL Neutrophils % % Lymphocytes % % Monocytes % % Eosinophils % % Basophils % % Neutrophils # (1.3-7.7) k/uL Lymphocytes # (1.0-4.8) k/uL Monocytes # (0-1.0) k/uL Eosinophils # (0-0.7) k/uL Basophils # (0-0.2) k/uL Sodium 143 (137-145) mmol/L Potassium 4.3 (3.5-5.1) mmol/L Chloride 105 (98-107) mmol/L Carbon Dioxide 27 (22-30) mmol/L Anion Gap 11 mmol/L BUN 9 (9-20) mg/dL Creatinine 0.86 (0.66-1.25) mg/dL Est GFR (CKD-EPI)AfAm >90 (>60 ml/min/1.73 sqM) Est GFR (CKD-EPI)NonAf >90 (>60 ml/min/1.73 sqM) Glucose 87 (74-99) mg/dL Calcium 8.9 (8.4-10.2) mg/dL Total Bilirubin 0.3 (0.2-1.3) mg/dL AST 55 (17-59) U/L ALT 68 (21-72) U/L Alkaline Phosphatase 91 (38-126) U/L Total Protein 7.2 (6.3-8.2) g/dL Albumin 4.3 (3.5-5.0) g/dL Urine Color Yellow Urine Appearance Clear (Clear) Urine pH 5.5 (5.0-8.0) Ur Specific [place] 1.019 (1.001-1.035) Urine Protein 1+ H (Negative) Urine Glucose (UA) Negative (Negative) Urine Ketones Trace H (Negative) Urine Blood Negative (Negative) Urine Nitrite Negative (Negative) Urine Bilirubin Negative (Negative) Urine Urobilinogen 2.0 (<2.0) mg/dL Ur Leukocyte Esterase Negative (Negative) Ur Squamous Epith Cells <1 (0-4) /hpf Hyaline Casts 4 H (0-2) /lpf Urine Mucus Many H (None) /hpf Salicylates <1.0 mg/dL Urine Opiates Screen Not Detected (NotDetected) Ur Oxycodone Screen Not Detected (NotDetected) Urine Methadone Screen Not Detected (NotDetected) Ur Propoxyphene Screen Not Detected (NotDetected) Acetaminophen <10.0 ug/mL Ur Barbiturates Screen Not Detected (NotDetected) U Tricyclic Antidepress Not Detected (NotDetected) Ur Phencyclidine Scrn Not Detected (NotDetected) Ur Amphetamines Screen Not Detected (NotDetected) U Methamphetamines Scrn Not Detected (NotDetected) U Benzodiazepines Scrn Not Detected (NotDetected) Urine Cocaine Screen Detected H (NotDetected) U Marijuana (THC) Screen Detected H (NotDetected) Serum Alcohol 213 mg/dL 02/10/18 Range/Units 06:46 WBC 7.3 (3.8-10.6) k/uL RBC 4.94 (4.30-5.90) m/uL Hgb 16.3 (13.0-17.5) gm/dL Hct 48.6 (39.0-53.0) % MCV 98.4 (80.0-100.0) fL MCH 33.0 (25.0-35.0) pg MCHC 33.5 (31.0-37.0) g/dL RDW 13.5 (11.5-15.5) % Plt Count 294 (150-450) k/uL Neutrophils % 66 % Lymphocytes % 23 % Monocytes % 6 % Eosinophils % 2 % Basophils % 1 % Neutrophils # 4.8 (1.3-7.7) k/uL Lymphocytes # 1.7 (1.0-4.8) k/uL Monocytes # 0.5 (0-1.0) k/uL Eosinophils # 0.2 (0-0.7) k/uL Basophils # 0.1 (0-0.2) k/uL Sodium (137-145) mmol/L Potassium (3.5-5.1) mmol/L Chloride (98-107) mmol/L Carbon Dioxide (22-30) mmol/L Anion Gap mmol/L BUN (9-20) mg/dL Creatinine (0.66-1.25) mg/dL Est GFR (CKD-EPI)AfAm (>60 ml/min/1.73 sqM) Est GFR (CKD-EPI)NonAf (>60 ml/min/1.73 sqM) Glucose (74-99) mg/dL Calcium (8.4-10.2) mg/dL Total Bilirubin (0.2-1.3) mg/dL AST (17-59) U/L ALT (21-72) U/L Alkaline Phosphatase (38-126) U/L Total Protein (6.3-8.2) g/dL Albumin (3.5-5.0) g/dL Urine Color Urine Appearance (Clear) Urine pH (5.0-8.0) Ur Specific [place] (1.001-1.035) Urine Protein (Negative) Urine Glucose (UA) (Negative) Urine Ketones (Negative) Urine Blood (Negative) Urine Nitrite (Negative) Urine Bilirubin (Negative) Urine Urobilinogen (<2.0) mg/dL Ur Leukocyte Esterase (Negative) Ur Squamous Epith Cells (0-4) /hpf Hyaline Casts (0-2) /lpf Urine Mucus (None) /hpf Salicylates mg/dL Urine Opiates Screen (NotDetected) Ur Oxycodone Screen (NotDetected) Urine Methadone Screen (NotDetected) Ur Propoxyphene Screen (NotDetected) Acetaminophen ug/mL Ur Barbiturates Screen (NotDetected) U Tricyclic Antidepress (NotDetected) Ur Phencyclidine Scrn (NotDetected) Ur Amphetamines Screen (NotDetected) U Methamphetamines Scrn (NotDetected) U Benzodiazepines Scrn (NotDetected) Urine Cocaine Screen (NotDetected) U Marijuana (THC) Screen (NotDetected) Serum Alcohol mg/dL Disposition <Karie Diamond - Last Filed: 02/10/18 08:29> Is patient prescribed a controlled substance at d/c from ED?: No Decision Time: 16:53 <Jorge Alicia - Last Filed: 02/10/18 16:53> Clinical Impression: Depression, Suicidal ideation Disposition: TRANSFER TO PSYCH HOSP/UNIT Referrals: Talia Zelaya MD [Primary Care Provider] - 1-2 days
[2018-02-10 05:35] LABS: Amphetamine Screen,Urine Not Detected (NotDetected); Barbiturate Screen,Urine Not Detected (NotDetected); Benzodiazepines Screen,Urine Not Detected (NotDetected); Cocaine Screen,Urine Detected (NotDetected); Methadone Screen, Urine Not Detected (NotDetected); Opiate Screen,Urine Not Detected (NotDetected); Oxycodone Screen, Urine Not Detected (NotDetected); Phencyclidine Screen,Urine Not Detected (NotDetected); Tricyclic Antidepressant,Urine Not Detected (NotDetected); Urn Cannabinoid Scrn Detected (NotDetected)
--- NOTE | 2018-02-10 05:45 | XR ---
EXAM: XR Chest, 2 Views CLINICAL HISTORY: cough TECHNIQUE: Frontal and lateral views of the chest. COMPARISON: 01/26/18 FINDINGS: Lungs: Unremarkable. No consolidation. Pleural space: Unremarkable. No pneumothorax. Heart: Unremarkable. No cardiomegaly. Mediastinum: Unremarkable. Bones/joints: Unremarkable. IMPRESSION: Normal chest x-rays. No change from prior study
[2018-02-10 06:53] LABS: Basophils # (A) 0.1 k/uL (0-0.2); Basophils % (A) 1 %; Eosinophils # (A) 0.2 k/uL (0-0.7); Eosinophils % (A) 2 %; HCT 48.6 % (39.0-53.0); HGB 16.3 gm/dL (13.0-17.5); Lymphocytes # (A) 1.7 k/uL (1.0-4.8); Lymphocytes % (A) 23 %; MCHC 33.5 g/dL (31.0-37.0); MCV 98.4 fL (80.0-100.0); Mean Platelet Volume 6.5; Monocytes # (A) 0.5 k/uL (0-1.0); Monocytes % (A) 6 %; Neutrophils # (A) 4.8 k/uL (1.3-7.7); Neutrophils % (A) 66 %; Platelet Count 294 k/uL (150-450); RBC 4.94 m/uL (4.30-5.90); RDW 13.5 % (11.5-15.5); WBC 7.3 k/uL (3.8-10.6)
[2018-02-10 07:02] LABS: Appearance,Urine Clear (Clear); Bilirubin,Urine Negative (Negative); Blood,Urine Negative (Negative); Color,Urine Yellow; Glucose,Urine (UA) Negative (Negative); Hyaline Casts,Urine 4 /lpf (0-2); Ketones,Urine Trace (Negative); Leukocyte Esterase,Urine Negative (Negative); Mucus,Urine Many /hpf; Nitrite,Urine Negative (Negative); PH, Urine 5.5 (5.0-8.0); Protein,Urine 1+ (Negative); Specific Gravity,Urine 1.019 (1.001-1.035); Squamous Epithelial Cell,Urine <1 /hpf (0-4)
[2018-02-10 07:06] LABS: ALT 68 U/L (21-72); AST 55 U/L (17-59); Acetaminophen <10.0 ug/mL; Albumin 4.3 g/dL (3.5-5.0); Alkaline Phosphatase 91 U/L (38-126); Anion Gap 11 mmol/L; Blood Urea Nitrogen 9 mg/dL (9-20); Calcium 8.9 mg/dL (8.4-10.2); Carbon Dioxide 27 mmol/L (22-30); Chloride 105 mmol/L (98-107); Glucose 87 mg/dL (74-99); Potassium 4.3 mmol/L (3.5-5.1); Salicylate <1.0 mg/dL; Sodium 143 mmol/L (137-145); Total Bilirubin 0.3 mg/dL (0.2-1.3); Total Protein 7.2 g/dL (6.3-8.2)
[2018-02-10 07:15] LABS: Alcohol 213 mg/dL
[2018-02-10] MEDS ORDERED: LORazepam 1 MG TAB PO STA ×2 (11:17→16:56)
[2018-02-10] MEDS ORDERED: MAGNESIUM HYDROXIDE 2,400 MG/10 ML CUP PO PRN (17:29)
[2018-02-10] MEDS ORDERED: MAG HYDROX/AL HYDROX/SIMETH 30 ML CUP PO PRN (17:29)
--- NOTE | 2018-02-10 18:52 | XR ---
EXAMINATION TYPE: XR ribs LT w pa chest xray DATE OF EXAM: 02/10/2018 COMPARISON: NONE HISTORY: Rib pain TECHNIQUE: 6 views FINDINGS: Heart and mediastinum are normal. Lungs are clear. There is no sign of pleural effusion or pneumothorax. The left ribs appear intact. IMPRESSION: Negative left rib exam.
[2018-02-10] MEDS: NICOTINE POLACRILEX 2 MG GUM BUCCAL PRN (19:03)
[2018-02-10] MEDS: QUEtiapine 100 MG TAB PO SCH (20:16)
[2018-02-10] MEDS: IBUPROFEN 800 MG TAB PO PRN (20:17)
--- NOTE | 2018-02-11 08:18 | CONS ---
CONSULTATION REASON FOR CONSULTATION: Advice regarding right-sided chest pain and other medical issues requested by Psychiatry. HISTORY OF PRESENT ILLNESS: This 32-year-old gentleman with a past history of chronic back pain, history of anxiety, depression, history of nicotine dependence, polysubstance abuse, being followed by Dr. Zelaya in outpatient setting was admitted for psychiatric evaluation. The patient was apparently drinking heavily. The last drink was yesterday. The patient has history of smoking and cocaine and THC was positive from the urine screen also. Patient complaining of left-sided chest pain. Complains of some cough also. There is no history of fever, rigors. No history of headache, loss of consciousness, seizures. PAST MEDICAL HISTORY: History of DJD, history of anxiety, depression, history of nicotine dependence, ETOH. MEDICATIONS: 1. Seroquel 200 mg q.h.s. 2. Claritin 10 mg daily. 3. Motrin 800 mg q.8h p.r.n. 4. Neurontin 600 mg t.i.d. ALLERGIES: None. FAMILY HISTORY: Unobtainable. SOCIAL HISTORY: History of smoking, polysubstance abuse including alcohol, cocaine, THC as mentioned earlier. REVIEW OF SYSTEMS: ENT: No diminished hearing or vision. CARDIOVASCULAR: No angina or palpitations. RESPIRATORY: As mentioned earlier. GI: No nausea or vomiting. : No dysuria. NERVOUS SYSTEM: No numbness or weakness. ALLERGY/IMMUNOLOGY: No history of asthma or hay fever. MUSCULOSKELETAL: As mentioned earlier. HEMATOLOGY: No history of anemia. ENDOCRINE: No history of diabetes or hypothyroidism. CONSTITUTIONAL: As mentioned earlier. DERMATOLOGY: Negative. RHEUMATOLOGY: Negative. PSYCHIATRY: As mentioned earlier. PHYSICAL EXAM: Patient is alert, oriented x3. Pulse 92, blood pressure 139/67, respiration 18, temperature 98.7, pulse ox 98% on room air. HEENT: Conjunctivae normal. Oral mucosa moist. Neck is no jugular venous distention. No carotid bruit. No lymph node enlargement. CARDIOVASCULAR: S1, S2. RESPIRATORY: Breath sounds diminished in the bases. A few scattered rhonchi. No crackles. ABDOMEN: Soft, nontender. No mass palpable. LEGS: No edema, no swelling. NERVOUS SYSTEM: Higher functions as mentioned earlier. Cranial nerves II through XII grossly intact. No nystagmus, no diplopia. No facial asymmetry. Moves all 4 limbs. Power is normal. Gait is normal. No sensory abnormalities. LYMPHATICS: No lymphadenopathy in the neck, axillae, groin. SKIN: No ulcer, rash or bleeding. ASSESSMENT: 1. Left-sided chest pain, possible pleuritic, rule out rib fractures. 2. Polysubstance abuse including alcohol, smoking, cocaine, THC. 3. Depression. 4. Anxiety. 5. History of degenerative joint disease. RECOMMENDATIONS AND DISCUSSION: This 32-year-old gentleman admitted with multiple medical problems, will monitor the patient closely. Continue the current management and symptomatic treatment. Otherwise at this time I recommend symptomatic treatment. X-ray with ribs to rule out rib fracture. Otherwise, I would also recommend [facility] protocol for alcohol withdrawal. Otherwise supplement vitamins. See orders for details. The baseline labs within normal limits. We will be happy to review the patient if necessary, otherwise the patient may be asked for outpatient drug substance abuse counseling rehab and as well as follow outpatient followup. Thank you, Dr. Crouch for letting us participate in this patient. MMJORDANL / ARNALDON: [id number] /
[2018-02-11] MEDS: PANTOPRAZOLE 40 MG TABLET PO SCH (08:55)
[2018-02-11] MEDS: SERTRALINE 100 MG TAB PO SCH (08:55)
[2018-02-11] MEDS: LORATADINE 10 MG TAB PO SCH (08:55)
[2018-02-11] MEDS: LORazepam 1 MG TAB PO PRN ×2 (08:57→16:40)
[2018-02-11] MEDS: NICOTINE POLACRILEX 2 MG GUM BUCCAL PRN ×3 (08:57→20:34)
[2018-02-11] MEDS: IBUPROFEN 800 MG TAB PO PRN (08:57)
[2018-02-11 12:41] LABS: Hemoglobin A1C 4.7 % (4.0-6.0)
[2018-02-11] MEDS: THIAMINE 100 MG TAB PO SCH (13:09)
[2018-02-11] MEDS: FOLIC ACID 1 MG TAB PO SCH (13:09)
[2018-02-11] MEDS: MULTIVITAMINS, THERA 1 EACH TAB PO SCH (13:09)
[2018-02-11] MEDS: ACETAMINOPHEN TAB 325 MG TAB PO PRN (15:22)
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
[2018-02-11] MEDS: QUEtiapine 100 MG TAB PO SCH (20:16)
[2018-02-12] MEDS: PANTOPRAZOLE 40 MG TABLET PO SCH (08:44)
[2018-02-12] MEDS: SERTRALINE 100 MG TAB PO SCH (08:44)
[2018-02-12] MEDS: LORATADINE 10 MG TAB PO SCH (08:44)
[2018-02-12] MEDS: LORazepam 1 MG TAB PO PRN ×2 (08:44→16:06)
[2018-02-12] MEDS: NICOTINE POLACRILEX 2 MG GUM BUCCAL PRN ×4 (08:44→21:24)
[2018-02-12] MEDS: ALBUTEROL INHALER 60 PUFF/8 GM INHALER INHALATION PRN ×2 (09:26→15:47)
[2018-02-12] MEDS: MULTIVITAMINS, THERA 1 EACH TAB PO SCH (12:27)
[2018-02-12] MEDS: FOLIC ACID 1 MG TAB PO SCH (12:27)
[2018-02-12] MEDS: THIAMINE 100 MG TAB PO SCH (12:28)
[2018-02-12] MEDS: ACETAMINOPHEN TAB 325 MG TAB PO PRN ×2 (12:28→16:05)
[2018-02-12] MEDS: GABAPENTIN 300 MG CAP PO SCH ×3 (12:53→21:21)
--- NOTE | 2018-02-12 15:32 | P.PN ---
Progress Note - Text Progress Note Date: 02/12/18 Clinical Problems: Unspecified depressive disorder, rule out major depressive disorder, alcohol use disorder unspecified, cocaine use disorder mild, cannabis use disorder, mild antisocial personal disorder Interim history: I reviewed the medical record, interviewed the patient and discuss his treatment and treatment plan during team meeting. He complained of pain, numbness and tingling in his hands and feet. He requested to resume his outpatient prescription of Neurontin. He stated that he feels less depressed and anxious that yesterday. He denied experiencing suicidal thoughts or wishes today. He remains concerned about his multiple social issues the most pressing of which is obtaining some form of identification. The psychiatric social worker supervisor provide him with information obtained a copy of his certificate and confirmed that he may return to the local snf. The CIWA scores have range from 2-7 consistent with minimal to mild alcohol withdrawal symptoms. He received 2 mg of lorazepam yesterday and 1 mg so far today. He is been compliant with his prescribed medications and denied side effects. Mental status exam: He presented as a tall casually groomed and casually dressed 32-year-old male who was pleasant on approach. He made eye contact and attended to the interview. He showed no abnormality of psychomotor activity. He was not agitated or restless. His speech was spontaneous with slight decrease in rate, volume and rhythm. His affect was depressed. He denied current suicidal ideation or wishes. He denied homicidal ideation. He continued to expressed depressive cognitions including hopelessness, helplessness and worthlessness. He ruminated about his physical pain and social problems but did not express obsessions, ideas reference, paranoid ideation or delusions. His thinking was concrete but his associations were coherent and logical. He denied hallucinations and did not appear to be responding to internal stimuli. Assessment: He is having minimal symptoms of alcohol withdrawal. His primary concern is pain and paresthesias in his hands and feet. He has a depressed affect but does not have the full spectrum of symptoms consistent with major depressive disorder. There is no evidence of psychosis or delirium. Plan: Continue inpatient hospitalization. Continue safety precautions. Continue CIWA protocol with lorazepam for alcohol withdrawal. Continue Seroquel 100 mg at bedtime and Zoloft 100 mg daily for the treatment of mood disorder. Restart Neurontin 600 mg by mouth 3 times a day for pain and paresthesias. health care social worker to assist with placement and aftercare. Encourage participation in therapeutic groups and activities. Evaluate clinical status response to treatment daily basis.
[2018-02-12] MEDS: QUEtiapine 100 MG TAB PO SCH (21:21)
[2018-02-13 06:52] VITALS: BP 122/75; PULSE 76; RESP 16; TEMP 97.9
[2018-02-13] MEDS: PANTOPRAZOLE 40 MG TABLET PO SCH (08:08)
[2018-02-13] MEDS: LORATADINE 10 MG TAB PO SCH (08:08)
[2018-02-13] MEDS: SERTRALINE 100 MG TAB PO SCH (08:09)
[2018-02-13] MEDS: GABAPENTIN 300 MG CAP PO SCH (08:09)
[2018-02-13] MEDS: NICOTINE POLACRILEX 2 MG GUM BUCCAL PRN (08:10)
[2018-02-13] MEDS: ALBUTEROL INHALER 60 PUFF/8 GM INHALER INHALATION PRN (09:07)
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
== END 2018-02-13 11:50 | disposition home or self-care (01) | DRG 881 ==
LOC: EC 04:29 → 3MHU 17:20
PROVIDERS: ADMIT Psychiatry & Neurology Psychiatry; ATTEND Psychiatry & Neurology Psychiatry
DX: F32.9 Major depressive disorder, single episode, unspecified (principal); F10.239 Alcohol dependence with withdrawal, unspecified; R45.851 Suicidal ideations; E86.0 Dehydration; F10.229 Alcohol dependence with intoxication, unspecified; F12.99 Cannabis use, unspecified with unspecified cannabis-induced disorder; F14.99 Cocaine use, unspecified with unspecified cocaine-induced disorder; F17.200 Nicotine dependence, unspecified, uncomplicated; F41.9 Anxiety disorder, unspecified; F60.2 Antisocial personality disorder; Y04.0XXA Assault by unarmed brawl or fight, initial encounter; Z56.0 Unemployment, unspecified; Z59.0 Homelessness; Z79.899 Other long term (current) drug therapy; Z81.8 Family history of other mental and behavioral disorders; Z91.19 Patient's noncompliance with other medical treatment and regimen
CPT/HCPCS: 36415; 71046; 80053; 80061; 80306; 80320; 81001; 82075; 83036; 83520; 84443; 85025; 94640; 99285

== ENCOUNTER 2018-03-02 22:56 | Emergency (ER) | payer OTHER ==
[2018-03-02] MEDS ORDERED: IPRATROPIUM-ALBUTEROL 3 ML NEB INHALATION STA (23:26)
--- NOTE | 2018-03-02 23:31 | ED ---
Psych HPI - General Source: patient, RN notes reviewed Mode of arrival: ambulatory - History of Present Illness MD Complaint: suicidal ideation, feels depressed, other <Luigi Up - Last Filed: 03/02/18 23:31> <Tucker Lopez - Last Filed: 03/03/18 14:28> - General Chief Complaint: Psychiatric Symptoms Stated Complaint: Mental Health Time Seen by Provider: 03/02/18 23:15 - History of Present Illness Initial Comments: This a 32-year-old male history of depression who was brought in today for evaluation of being depressed homicidal and suicidal. He also been drinking today. It is she does have a cough. No definite plan apparently he has no access to firearms at this time. Patient states she's refilling his way prolonged time these try to be as well as psychologist and goes off on tangents. (Luigi Up) - Related Data Home Medications Medication Instructions Recorded Confirmed Buprenorphine HCl/Naloxone HCl 1 film SL BID 03/03/18 03/03/18 [Suboxone 8 mg-2 mg Sl Film] Multivitamins, Thera [Multivitamin 1 tab PO DAILY@1200 03/03/18 03/03/18 (formulary)] QUEtiapine [SEROquel] 100 mg PO HS 03/03/18 03/03/18 Previous Rx's Medication Instructions Recorded Albuterol Inhaler [Ventolin Hfa 2 puff INHALATION RT-Q6H PRN #1 02/13/18 Inhaler] puff Gabapentin [Neurontin] 600 mg PO TID #90 cap 02/13/18 Sertraline [Zoloft] 100 mg PO DAILY #30 tab 02/13/18 Allergies Allergy/AdvReac Type Severity Reaction Status Date / Time No Known Allergies Allergy Verified 03/03/18 07:51 Review of Systems ROS Other: All systems not noted in ROS Statement are negative. <Luigi Up - Last Filed: 03/02/18 23:31> ROS Other: All systems not noted in ROS Statement are negative. <Tucker Lopez - Last Filed: 03/03/18 14:28> ROS Statement: Those systems with pertinent positive or pertinent negative responses have been documented in the HPI. Past Medical History Past Medical History: No Reported History Additional Past Medical History / Comment(s): chronic back pain, history of depression etoh abuse History of Any Multi-Drug Resistant Organisms: None Reported Past Surgical History: Orthopedic Surgery Additional Past Surgical History / Comment(s): right knee Past Anesthesia/Blood Transfusion Reactions: No Reported Reaction Past Psychological History: Anxiety, Depression Smoking Status: Current every day smoker Past Alcohol Use History: Abuse, Daily, Heavy Past Drug Use History: Cocaine, Marijuana - Past Family History Father History Unknown: Yes Additional Family Medical History / Comment(s): Unable to obtain family history secondary altered mentation <Luigi Up - Last Filed: 03/02/18 23:31> General Exam Limitations: no limitations General appearance: alert, in no apparent distress Head exam: Present: atraumatic, normocephalic, normal inspection Eye exam: Present: normal appearance, PERRL, EOMI. Absent: scleral icterus, conjunctival injection, periorbital swelling ENT exam: Present: normal exam, mucous membranes moist Neck exam: Present: normal inspection. Absent: tenderness, meningismus, lymphadenopathy Respiratory exam: Present: wheezes, decreased breath sounds. Absent: respiratory distress, rales, rhonchi, stridor Cardiovascular Exam: Present: regular rate, normal rhythm, normal heart sounds. Absent: systolic murmur, diastolic murmur, rubs, gallop, clicks GI/Abdominal exam: Present: soft, normal bowel sounds. Absent: distended, tenderness, guarding, rebound, rigid Extremities exam: Present: normal inspection, full ROM, normal capillary refill. Absent: tenderness, pedal edema, joint swelling, calf tenderness Back exam: Present: normal inspection Neurological exam: Present: alert, oriented X3, CN II-XII intact Psychiatric exam: Present: depressed, flat affect, homicidal ideation, suicidal ideation Skin exam: Present: warm, dry, intact, normal color. Absent: rash <Luigi Up - Last Filed: 03/02/18 23:31> <Tucker Lopez - Last Filed: 03/03/18 14:28> - General Exam Comments Initial Comments: This a well-developed well-nourished awake alert male he does demonstrate a flight of ideas. (Luigi Up) Course <Luigi Up - Last Filed: 03/02/18 23:31> <Tucker Lopez - Last Filed: 03/03/18 14:28> Vital Signs 03/02/18 03/02/18 03/03/18 22:56 23:52 00:02 Temperature 97.9 F Pulse Rate 69 68 72 Respiratory 19 Rate Blood Pressure 128/80 O2 Sat by Pulse 98 Oximetry 03/03/18 14:19 Temperature 98.8 F Pulse Rate 82 Respiratory 18 Rate Blood Pressure 156/82 O2 Sat by Pulse 100 Oximetry - Reevaluation(s) Reevaluation #1: 03/02/18 23:32 The patient's care will be endorsed to Dr. Beatty at our shift change. (Luigi Up) - Lab Data Lab Results 03/03/18 Range/Units 09:35 Urine Opiates Screen Not Detected (NotDetected) Ur Oxycodone Screen Not Detected (NotDetected) Urine Methadone Screen Not Detected (NotDetected) Ur Propoxyphene Screen Not Detected (NotDetected) Ur Barbiturates Screen Not Detected (NotDetected) U Tricyclic Antidepress Not Detected (NotDetected) Ur Phencyclidine Scrn Not Detected (NotDetected) Ur Amphetamines Screen Not Detected (NotDetected) U Methamphetamines Scrn Not Detected (NotDetected) U Benzodiazepines Scrn Detected H (NotDetected) Urine Cocaine Screen Detected H (NotDetected) U Marijuana (THC) Screen Detected H (NotDetected) Disposition <Luigi Up - Last Filed: 03/02/18 23:31> Is patient prescribed a controlled substance at d/c from ED?: No <Tucker Lopez - Last Filed: 03/03/18 14:28> Clinical Impression: Depression, Alcohol intoxication, Alcohol use disorder Disposition: HOME SELF-CARE Condition: Good Instructions: Alcohol Use Disorder (ED) Referrals: None,Stated [Primary Care Provider] - 1-2 days
[2018-03-03 10:04] LABS: Amphetamine Screen,Urine Not Detected (NotDetected); Benzodiazepines Screen,Urine Detected (NotDetected); Cocaine Screen,Urine Detected (NotDetected); Methadone Screen, Urine Not Detected (NotDetected); Opiate Screen,Urine Not Detected (NotDetected); Phencyclidine Screen,Urine Not Detected (NotDetected); Tricyclic Antidepressant,Urine Not Detected (NotDetected); Urn Cannabinoid Scrn Detected (NotDetected)
[2018-03-03 10:05] LABS: Barbiturate Screen,Urine Not Detected (NotDetected); Oxycodone Screen, Urine Not Detected (NotDetected)
[2018-03-03 14:20] VITALS: BP 156/82; PULSE 82; RESP 18; TEMP 98.8
== END 2018-03-03 14:35 | disposition home or self-care (01) ==
LOC: EC 22:56
DX: F32.9 Major depressive disorder, single episode, unspecified (principal); F10.129 Alcohol abuse with intoxication, unspecified; F41.9 Anxiety disorder, unspecified; F17.200 Nicotine dependence, unspecified, uncomplicated; Z79.899 Other long term (current) drug therapy
CPT/HCPCS: 80306; 82075; 94640; 99285

== ENCOUNTER 2018-03-05 06:22 | Emergency (ER) | payer OTHER ==
--- NOTE | 2018-03-05 06:36 | ED ---
Medical Clearance HPI <Karie Diamond - Last Filed: 03/05/18 06:37> <Jorge Alicia - Last Filed: 03/05/18 14:57> - General Stated complaint: Mental health Time Seen by Provider: 03/05/18 06:32 - History of Present Illness Initial comments: Rogerio is a 32-year-old male with a history of depression, substance abuse who is brought to the ED today by EMS for evaluation of suicidal thoughts. Patient reports he's been drinking this evening, he is uncertain who called 911. Patient states that he is very upset. He reports these filled with mental emotional and psychological pain. Patient reports that there is some news today they got him very upset that no one next 1-2 days he plans to kill himself by shooting himself. (Karie Diamond) Home medications: Home Medications Medication Instructions Recorded Confirmed Buprenorphine HCl/Naloxone HCl 1 film SL BID 03/03/18 03/05/18 [Suboxone 8 mg-2 mg Sl Film] Multivitamins, Thera [Multivitamin 1 tab PO DAILY@1200 03/03/18 03/05/18 (formulary)] QUEtiapine [SEROquel] 100 mg PO HS 03/03/18 03/05/18 Previous Rx's Medication Instructions Recorded Albuterol Inhaler [Ventolin Hfa 2 puff INHALATION RT-Q6H PRN #1 02/13/18 Inhaler] puff Gabapentin [Neurontin] 600 mg PO TID #90 cap 02/13/18 Sertraline [Zoloft] 100 mg PO DAILY #30 tab 02/13/18 Allergies/Adverse reactions: Allergies Allergy/AdvReac Type Severity Reaction Status Date / Time No Known Allergies Allergy Verified 03/05/18 09:11 Review of Systems ROS Other: All systems not noted in ROS Statement are negative. <Karie Diamond - Last Filed: 03/05/18 06:37> ROS Other: All systems not noted in ROS Statement are negative. <Jorge Alicia - Last Filed: 03/05/18 14:57> ROS Statement: Those systems with pertinent positive or pertinent negative responses have been documented in the HPI. Past Medical History Past Medical History: No Reported History Additional Past Medical History / Comment(s): chronic back pain, history of depression etoh abuse History of Any Multi-Drug Resistant Organisms: None Reported Past Surgical History: Orthopedic Surgery Additional Past Surgical History / Comment(s): right knee Past Anesthesia/Blood Transfusion Reactions: No Reported Reaction Past Psychological History: Anxiety, Depression Smoking Status: Current every day smoker Past Alcohol Use History: Abuse, Daily, Heavy Past Drug Use History: Cocaine, Marijuana - Past Family History Father History Unknown: Yes Additional Family Medical History / Comment(s): Unable to obtain family history secondary altered mentation <Karie Diamond - Last Filed: 03/05/18 06:37> General Exam <Karie Diamond - Last Filed: 03/05/18 06:37> <Jorge Alicia - Last Filed: 03/05/18 14:57> - General Exam Comments Initial Comments: GENERAL: Appears intoxicated HENT: Normocephalic, Atraumatic. EYES: The sclera were anicteric and conjunctiva were pink and moist. Extraocular movements were intact and pupils were equal round and reactive to light. Eyelids were unremarkable. PULMONARY: Unlabored respirations. Good breath sounds bilaterally. No audible rales rhonchi or wheezing was noted. CARDIOVASCULAR: There is a regular rate and rhythm without any murmurs gallops or rubs. ABDOMEN: Soft and nontender with normal bowel sounds. SKIN: No injury NEUROLOGIC: Slurred speech Radial nerves II through XII grossly intact Moving all extremities MUSCULOSKELETAL: Normal extremities with adequate strength and full range of motion. No lower extremity swelling or edema. No calf tenderness. LYMPHATICS: No significant lymphadenopathy is noted PSYCHIATRIC: Agitated, tangential thoughts, suicidal thoughts with plan for shooting himself Limitations: no limitations (Karie Diamond) Vital Signs 03/05/18 03/05/18 06:25 06:56 Temperature 97.2 F L Pulse Rate 86 Respiratory 18 18 Rate Blood Pressure 133/70 O2 Sat by Pulse 100 Oximetry Medical Decision Making <Karie Diamond - Last Filed: 03/05/18 06:37> <Jorge Alicia - Last Filed: 03/05/18 14:57> - Medical Decision Making The patient was seen and evaluated history is obtained from the patient review of medical record and EMS Patient is agitated, intoxicated, stating that he is upset and plans to in things in the next one or 2 days Alcohol is 0.19, patient will be sober in 5-6 hours, Regular diet was ordered Patient care is signed out to Dr. Alicia who will reevaluate the patient when sober and have patient evaluated by psychiatric services (Karie Diamond) Patient was seen by mental health services who recommends discharge. They state patient is open with [facility] and he agreed to follow-up. Patient reevaluated by myself, Dr. Alicia. Patient resting comfortably in bed. Patient denies suicidal ideation. Patient does contract for safety. Patient is agreeable to follow-up. (Jorge Alicia) - Lab Data Lab Results 03/05/18 Range/Units 07:02 Urine Opiates Screen Not Detected (NotDetected) Ur Oxycodone Screen Not Detected (NotDetected) Urine Methadone Screen Not Detected (NotDetected) Ur Propoxyphene Screen Not Detected (NotDetected) Ur Barbiturates Screen Not Detected (NotDetected) U Tricyclic Antidepress Not Detected (NotDetected) Ur Phencyclidine Scrn Not Detected (NotDetected) Ur Amphetamines Screen Not Detected (NotDetected) U Methamphetamines Scrn Not Detected (NotDetected) U Benzodiazepines Scrn Detected H (NotDetected) Urine Cocaine Screen Detected H (NotDetected) U Marijuana (THC) Screen Detected H (NotDetected) Disposition <Karie Diamond - Last Filed: 03/05/18 06:37> Is patient prescribed a controlled substance at d/c from ED?: No Time of Disposition: 14:57 <Jorge Alicia - Last Filed: 03/05/18 14:57> Clinical Impression: Alcohol intoxication, Depression Disposition: HOME SELF-CARE Condition: Stable Instructions: Depression (ED), Abuse of Alcohol (ED) Additional Instructions: Discontinue alcohol use. Please follow-up with [facility] tomorrow as directed. Return for thoughts of self-harm, worsening symptoms, or other concerns. Referrals: Talia Zelaya MD [REFERRING] - 1-2 days
[2018-03-05 06:40] VITALS: RESP 18
[2018-03-05 07:20] LABS: Amphetamine Screen,Urine Not Detected (NotDetected); Barbiturate Screen,Urine Not Detected (NotDetected); Benzodiazepines Screen,Urine Detected (NotDetected); Cocaine Screen,Urine Detected (NotDetected); Methadone Screen, Urine Not Detected (NotDetected); Opiate Screen,Urine Not Detected (NotDetected); Oxycodone Screen, Urine Not Detected (NotDetected); Phencyclidine Screen,Urine Not Detected (NotDetected); Tricyclic Antidepressant,Urine Not Detected (NotDetected); Urn Cannabinoid Scrn Detected (NotDetected)
[2018-03-05 15:18] VITALS: BP 156/74; PULSE 110; TEMP 97.9
== END 2018-03-05 15:18 | disposition home or self-care (01) ==
LOC: EC 06:22
DX: F10.129 Alcohol abuse with intoxication, unspecified (principal); F32.9 Major depressive disorder, single episode, unspecified; R45.851 Suicidal ideations; F17.200 Nicotine dependence, unspecified, uncomplicated; Z79.899 Other long term (current) drug therapy
CPT/HCPCS: 80306; 99285

== ENCOUNTER 2018-05-28 13:15 | Emergency (ER) | payer OTHER ==
[2018-05-28] MEDS ORDERED: SODIUM CHLORIDE 0.9% 1,000 ML IV STA ×2 (13:46→16:05)
--- NOTE | 2018-05-28 13:47 | ED ---
Alcohol HPI - General Chief Complaint: Alcohol Stated Complaint: Alcohol Time Seen by Provider: 05/28/18 13:25 Source: EMS, RN notes reviewed, old records reviewed Mode of arrival: ambulatory Limitations: no limitations - History of Present Illness Initial Comments: This is a 30-year-old male to the ER for evaluation. Patient's but in by police department for evaluation regarding possible intoxication versus drug abuse. Patient has multiple warrants for arrest and is brought in for clearance for retirement office reluctant to provide history, evasive questioning. MD Complaint: alcohol intoxication, alcohol dependence, medical clearance for detox facility Last Drink: just [employer] -: hour(s) Previous Visits for Alcohol Intoxication?: Yes Recent Trauma: No Associated Symptoms: denies other symptoms Treatments Prior to Arrival: none Chronic Alcohol Use: Yes - Related Data Home Medications Medication Instructions Recorded Confirmed Buprenorphine HCl/Naloxone HCl 1 film SL BID 03/03/18 05/28/18 [Suboxone 8 mg-2 mg Sl Film] Multivitamins, Thera [Multivitamin 1 tab PO DAILY@1200 03/03/18 05/28/18 (formulary)] QUEtiapine [SEROquel] 100 mg PO HS 03/03/18 05/28/18 Previous Rx's Medication Instructions Recorded Albuterol Inhaler [Ventolin Hfa 2 puff INHALATION RT-Q6H PRN #1 02/13/18 Inhaler] puff Gabapentin [Neurontin] 600 mg PO TID #90 cap 02/13/18 Sertraline [Zoloft] 100 mg PO DAILY #30 tab 02/13/18 Allergies Allergy/AdvReac Type Severity Reaction Status Date / Time No Known Allergies Allergy Verified 05/28/18 13:33 Review of Systems ROS Statement: Those systems with pertinent positive or pertinent negative responses have been documented in the HPI. ROS Other: All systems not noted in ROS Statement are negative. Past Medical History Past Medical History: No Reported History Additional Past Medical History / Comment(s): chronic back pain, history of depression etoh abuse History of Any Multi-Drug Resistant Organisms: None Reported Past Surgical History: Orthopedic Surgery Additional Past Surgical History / Comment(s): right knee Past Anesthesia/Blood Transfusion Reactions: No Reported Reaction Past Psychological History: Anxiety, Depression Smoking Status: Current every day smoker Past Alcohol Use History: Abuse, Daily, Heavy Past Drug Use History: Cocaine, Marijuana - Past Family History Father History Unknown: Yes Additional Family Medical History / Comment(s): Unable to obtain family history secondary altered mentation General Exam Limitations: no limitations General appearance: alert, in no apparent distress, appears intoxicated, lethargic Head exam: Present: atraumatic, normocephalic, normal inspection Eye exam: Present: normal appearance, PERRL, EOMI. Absent: scleral icterus, conjunctival injection, periorbital swelling ENT exam: Present: normal exam, mucous membranes moist Neck exam: Present: normal inspection. Absent: tenderness, meningismus, lymphadenopathy Respiratory exam: Present: normal lung sounds bilaterally. Absent: respiratory distress, wheezes, rales, rhonchi, stridor Cardiovascular Exam: Present: regular rate, normal rhythm, normal heart sounds. Absent: systolic murmur, diastolic murmur, rubs, gallop, clicks GI/Abdominal exam: Present: soft, normal bowel sounds. Absent: distended, tenderness, guarding, rebound, rigid Extremities exam: Present: normal inspection, full ROM, normal capillary refill. Absent: tenderness, pedal edema, joint swelling, calf tenderness Back exam: Present: normal inspection Neurological exam: Present: alert, oriented X3, CN II-XII intact Psychiatric exam: Present: normal affect, normal mood Skin exam: Present: warm, dry, intact, normal color. Absent: rash Course Vital Signs 05/28/18 05/28/18 05/28/18 13:15 14:53 16:04 Temperature 96.8 F L 98.0 F Pulse Rate 88 107 H Respiratory 16 18 18 Rate Blood Pressure 119/68 100/54 O2 Sat by Pulse 100 98 Oximetry - Reevaluation(s) Reevaluation #1: Medical record is reviewed Patient continues to be unresponsive to questioning, seems to be more intentional not drug related Medical Decision Making - Medical Decision Making 32 male the ER for evaluation of significant substance abuse polysubstance abuse alcohol abuse. Patient will be discharged home, patient is suitable for retirement clearance. - Lab Data Result diagrams: 05/28/18 13:25 05/28/18 13:25 Lab Results 05/28/18 05/28/18 05/28/18 Range/Units 13:25 13:25 16:15 WBC 4.4 (3.8-10.6) k/uL RBC 4.60 (4.30-5.90) m/uL Hgb 14.7 (13.0-17.5) gm/dL Hct 44.3 (39.0-53.0) % MCV 96.2 (80.0-100.0) fL MCH 31.9 (25.0-35.0) pg MCHC 33.1 (31.0-37.0) g/dL RDW 13.7 (11.5-15.5) % Plt Count 187 (150-450) k/uL Neutrophils % 44 % Lymphocytes % 46 % Monocytes % 5 % Eosinophils % 1 % Basophils % 0 % Neutrophils # 1.9 (1.3-7.7) k/uL Lymphocytes # 2.0 (1.0-4.8) k/uL Monocytes # 0.2 (0-1.0) k/uL Eosinophils # 0.1 (0-0.7) k/uL Basophils # 0.0 (0-0.2) k/uL Sodium 148 H (137-145) mmol/L Potassium 3.5 (3.5-5.1) mmol/L Chloride 110 H (98-107) mmol/L Carbon Dioxide 29 (22-30) mmol/L Anion Gap 9 mmol/L BUN 6 L (9-20) mg/dL Creatinine 0.77 (0.66-1.25) mg/dL Est GFR (CKD-EPI)AfAm >90 (>60 ml/min/1.73 sqM) Est GFR (CKD-EPI)NonAf >90 (>60 ml/min/1.73 sqM) Glucose 97 (74-99) mg/dL Calcium 8.6 (8.4-10.2) mg/dL Phosphorus 4.0 (2.5-4.5) mg/dL Magnesium 2.4 H (1.6-2.3) mg/dL Total Bilirubin 0.4 (0.2-1.3) mg/dL AST 126 H (17-59) U/L ALT 146 H (21-72) U/L Alkaline Phosphatase 83 (38-126) U/L Total Protein 7.1 (6.3-8.2) g/dL Albumin 4.0 (3.5-5.0) g/dL Urine Color Yellow Urine Appearance Clear (Clear) Urine pH 6.5 (5.0-8.0) Ur Specific [place] 1.006 (1.001-1.035) Urine Protein Negative (Negative) Urine Glucose (UA) Negative (Negative) Urine Ketones Trace H (Negative) Urine Blood Negative (Negative) Urine Nitrite Negative (Negative) Urine Bilirubin Negative (Negative) Urine Urobilinogen <2.0 (<2.0) mg/dL Ur Leukocyte Esterase Negative (Negative) Urine Opiates Screen Not Detected (NotDetected) Ur Oxycodone Screen Not Detected (NotDetected) Urine Methadone Screen Not Detected (NotDetected) Ur Propoxyphene Screen Not Detected (NotDetected) Ur Barbiturates Screen Not Detected (NotDetected) U Tricyclic Antidepress Not Detected (NotDetected) Ur Phencyclidine Scrn Not Detected (NotDetected) Ur Amphetamines Screen Not Detected (NotDetected) U Methamphetamines Scrn Not Detected (NotDetected) U Benzodiazepines Scrn Not Detected (NotDetected) Urine Cocaine Screen Not Detected (NotDetected) U Marijuana (THC) Screen Not Detected (NotDetected) Serum Alcohol 52 mg/dL Disposition Clinical Impression: Alcohol use disorder, Major depressive disorder, recurrent severe without psychotic features, Cocaine use disorder, Cannabis use disorder, mild, abuse, Opiate addiction Disposition: HOME SELF-CARE Condition: Fair Instructions: Alcohol Intoxication (ED), Polysubstance Abuse (ED) Is patient prescribed a controlled substance at d/c from ED?: No Referrals: None,Stated [Primary Care Provider] - 1-2 days
[2018-05-28 14:14] LABS: Basophils % (A) 0 %; Eosinophils # (A) 0.1 k/uL (0-0.7); Eosinophils % (A) 1 %; HCT 44.3 % (39.0-53.0); HGB 14.7 gm/dL (13.0-17.5); Lymphocytes % (A) 46 %; MCH 31.9 pg (25.0-35.0); MCHC 33.1 g/dL (31.0-37.0); MCV 96.2 fL (80.0-100.0); Mean Platelet Volume 6.6; Monocytes # (A) 0.2 k/uL (0-1.0); Monocytes % (A) 5 %; Neutrophils # (A) 1.9 k/uL (1.3-7.7); Neutrophils % (A) 44 %; Platelet Count 187 k/uL (150-450); RDW 13.7 % (11.5-15.5); WBC 4.4 k/uL (3.8-10.6)
[2018-05-28 14:22] LABS: ALT 146 U/L (21-72); AST 126 U/L (17-59); Alcohol 52 mg/dL; Alkaline Phosphatase 83 U/L (38-126); Anion Gap 9 mmol/L; Blood Urea Nitrogen 6 mg/dL (9-20); Calcium 8.6 mg/dL (8.4-10.2); Carbon Dioxide 29 mmol/L (22-30); Chloride 110 mmol/L (98-107); Glucose 97 mg/dL (74-99); Magnesium 2.4 mg/dL (1.6-2.3); Potassium 3.5 mmol/L (3.5-5.1); Sodium 148 mmol/L (137-145); Total Bilirubin 0.4 mg/dL (0.2-1.3); Total Protein 7.1 g/dL (6.3-8.2)
[2018-05-28] MEDS ORDERED: NALOXONE 0.4 MG/ML 1 ML VIAL IV STA (14:50)
[2018-05-28 14:54] VITALS: RESP 18
[2018-05-28 16:06] VITALS: BP 100/54; PULSE 107; TEMP 98
[2018-05-28 16:39] LABS: Appearance,Urine Clear (Clear); Bilirubin,Urine Negative (Negative); Blood,Urine Negative (Negative); Color,Urine Yellow; Glucose,Urine (UA) Negative (Negative); Ketones,Urine Trace (Negative); Leukocyte Esterase,Urine Negative (Negative); Nitrite,Urine Negative (Negative); PH, Urine 6.5 (5.0-8.0); Protein,Urine Negative (Negative); Specific Gravity,Urine 1.006 (1.001-1.035); Urobilinogen,Urine <2.0 mg/dL (<2.0)
[2018-05-28 16:43] LABS: Amphetamine Screen,Urine Not Detected (NotDetected); Barbiturate Screen,Urine Not Detected (NotDetected); Benzodiazepines Screen,Urine Not Detected (NotDetected); Cocaine Screen,Urine Not Detected (NotDetected); Methadone Screen, Urine Not Detected (NotDetected); Opiate Screen,Urine Not Detected (NotDetected); Oxycodone Screen, Urine Not Detected (NotDetected); Phencyclidine Screen,Urine Not Detected (NotDetected); Tricyclic Antidepressant,Urine Not Detected (NotDetected); Urn Cannabinoid Scrn Not Detected (NotDetected)
== END 2018-05-28 16:58 | disposition home or self-care (01) ==
LOC: EC 13:15
DX: F10.10 Alcohol abuse, uncomplicated (principal); F12.90 Cannabis use, unspecified, uncomplicated; F14.90 Cocaine use, unspecified, uncomplicated; F11.90 Opioid use, unspecified, uncomplicated; F32.9 Major depressive disorder, single episode, unspecified; F41.9 Anxiety disorder, unspecified; F17.200 Nicotine dependence, unspecified, uncomplicated; Z79.899 Other long term (current) drug therapy
CPT/HCPCS: 36415; 80053; 83735; 84100; 85025; 81003; 80306; 99284; 96374; 96361 ×3; G0480; J2310; 80320

== ENCOUNTER 2018-06-03 04:30 | Emergency (ER) | payer OTHER ==
--- NOTE | 2018-06-03 04:50 | ED ---
Psych HPI - General Source: patient Mode of arrival: ambulatory <Karie Diamond - Last Filed: 06/03/18 08:07> <Tucker Perdomo - Last Filed: 06/03/18 11:58> - General Chief Complaint: Psychiatric Symptoms Stated Complaint: suicidal Time Seen by Provider: 06/03/18 04:37 - History of Present Illness Initial Comments: 32-year-old male with a history of depression and polysubstance abuse presenting to the emergency department after drinking approximately a fifth of liquor stating that he feels like something is wrong with him, he is always weak , he is always tired, he thinks something is wrong with him and he just wants to . (Karie Diamond) - Related Data Home Medications Medication Instructions Recorded Confirmed QUEtiapine [SEROquel] 100 mg PO HS 03/03/18 06/03/18 Previous Rx's Medication Instructions Recorded Albuterol Inhaler [Ventolin Hfa 2 puff INHALATION RT-Q6H PRN #1 02/13/18 Inhaler] puff Gabapentin [Neurontin] 600 mg PO TID #90 cap 02/13/18 Sertraline [Zoloft] 100 mg PO DAILY #30 tab 02/13/18 Allergies Allergy/AdvReac Type Severity Reaction Status Date / Time No Known Allergies Allergy Verified 06/03/18 08:16 Review of Systems ROS Other: All systems not noted in ROS Statement are negative. <Karie Diamond - Last Filed: 06/03/18 08:07> ROS Other: All systems not noted in ROS Statement are negative. <Tucker Perdomo - Last Filed: 06/03/18 11:58> ROS Statement: Those systems with pertinent positive or pertinent negative responses have been documented in the HPI. Past Medical History Past Medical History: No Reported History Additional Past Medical History / Comment(s): chronic back pain, history of depression etoh abuse History of Any Multi-Drug Resistant Organisms: None Reported Past Surgical History: Orthopedic Surgery Additional Past Surgical History / Comment(s): right knee Past Anesthesia/Blood Transfusion Reactions: No Reported Reaction Past Psychological History: Anxiety, Depression Smoking Status: Current every day smoker Past Alcohol Use History: Abuse, Daily, Heavy Past Drug Use History: Cocaine, Marijuana - Past Family History Father History Unknown: Yes Additional Family Medical History / Comment(s): Unable to obtain family history secondary altered mentation <Karie Diamond - Last Filed: 06/03/18 08:07> General Exam Limitations: no limitations <Karie Diamond - Last Filed: 06/03/18 08:07> <Tucker Perdomo - Last Filed: 06/03/18 11:58> - General Exam Comments Initial Comments: Physical Exam GENERAL: Patient is well-developed and well-nourished. Patient is nontoxic and well- hydrated and is in no distress. HENT: Normocephalic, Atraumatic. EYES: PERRL, EOMI PULMONARY: Unlabored respirations. No audible rales rhonchi or wheezing was noted. CARDIOVASCULAR: There is a regular rate and rhythm without any murmurs gallops or rubs. ABDOMEN: Soft and nontender with normal bowel sounds. SKIN: Skin is clear with no lesions or rashes and otherwise unremarkable. : Deferred NEUROLOGIC: Patient is alert and oriented x3. 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 No lower extremity swelling or edema. No calf tenderness. PSYCHIATRIC: Depressed, passively suicidal with no specific plan Limitations: no limitations (Karie Diamond) Vital Signs 06/03/18 06/03/18 04:31 06:35 Temperature 98.0 F 98 F Pulse Rate 88 81 Respiratory 18 20 Rate Blood Pressure 136/93 129/79 O2 Sat by Pulse 98 98 Oximetry Medical Decision Making - Lab Data Result diagrams: 06/03/18 05:12 06/03/18 05:12 <Karie Diamond - Last Filed: 06/03/18 08:07> - Lab Data Result diagrams: 06/03/18 05:12 06/03/18 05:12 <Tucker Perdomo - Last Filed: 06/03/18 11:58> - Medical Decision Making Patient was seen and evaluated history was obtained from the patient labs and imaging ordered admitted to drinking a fifth of alcohol, breath alcohol is elevated patient will be sober at 10:30 AM, patient will be medically cleared for psychiatric evaluation at that time (Karie Diamond) - Lab Data Lab Results 06/03/18 06/03/18 06/03/18 Range/Units 05:12 05:12 05:12 WBC 8.1 (3.8-10.6) k/uL RBC 4.80 (4.30-5.90) m/uL Hgb 15.3 (13.0-17.5) gm/dL Hct 47.3 (39.0-53.0) % MCV 98.6 (80.0-100.0) fL MCH 31.8 (25.0-35.0) pg MCHC 32.3 (31.0-37.0) g/dL RDW 14.6 (11.5-15.5) % Plt Count 262 (150-450) k/uL Neutrophils % 43 % Lymphocytes % 45 % Monocytes % 6 % Eosinophils % 1 % Basophils % 1 % Neutrophils # 3.5 (1.3-7.7) k/uL Lymphocytes # 3.7 (1.0-4.8) k/uL Monocytes # 0.5 (0-1.0) k/uL Eosinophils # 0.1 (0-0.7) k/uL Basophils # 0.1 (0-0.2) k/uL Macrocytosis Slight Sodium 145 (137-145) mmol/L Potassium 4.8 (3.5-5.1) mmol/L Chloride 107 (98-107) mmol/L Carbon Dioxide 31 H (22-30) mmol/L Anion Gap 7 mmol/L BUN 10 (9-20) mg/dL Creatinine 0.75 (0.66-1.25) mg/dL Est GFR (CKD-EPI)AfAm >90 (>60 ml/min/1.73 sqM) Est GFR (CKD-EPI)NonAf >90 (>60 ml/min/1.73 sqM) Glucose 96 (74-99) mg/dL Calcium 9.0 (8.4-10.2) mg/dL Total Bilirubin 0.3 (0.2-1.3) mg/dL AST 58 (17-59) U/L ALT 104 H (21-72) U/L Alkaline Phosphatase 60 (38-126) U/L Total Protein 8.0 (6.3-8.2) g/dL Albumin 4.8 (3.5-5.0) g/dL TSH 2.800 (0.465-4.680) mIU/L Urine Color Yellow Urine Appearance Clear (Clear) Urine pH 6.0 (5.0-8.0) Ur Specific [place] 1.011 (1.001-1.035) Urine Protein Negative (Negative) Urine Glucose (UA) Negative (Negative) Urine Ketones Negative (Negative) Urine Blood Negative (Negative) Urine Nitrite Negative (Negative) Urine Bilirubin Negative (Negative) Urine Urobilinogen <2.0 (<2.0) mg/dL Ur Leukocyte Esterase Negative (Negative) Urine Opiates Screen Not Detected (NotDetected) Ur Oxycodone Screen Not Detected (NotDetected) Urine Methadone Screen Not Detected (NotDetected) Ur Propoxyphene Screen Not Detected (NotDetected) Ur Barbiturates Screen Not Detected (NotDetected) U Tricyclic Antidepress Not Detected (NotDetected) Ur Phencyclidine Scrn Not Detected (NotDetected) Ur Amphetamines Screen Not Detected (NotDetected) U Methamphetamines Scrn Not Detected (NotDetected) U Benzodiazepines Scrn Not Detected (NotDetected) Urine Cocaine Screen Not Detected (NotDetected) U Marijuana (THC) Screen Not Detected (NotDetected) Disposition <Karie Diamond - Last Filed: 06/03/18 08:07> Is patient prescribed a controlled substance at d/c from ED?: No Time of Disposition: 11:57 <Tucker Perdomo - Last Filed: 06/03/18 11:58> Clinical Impression: Situational depression, Alcohol intoxication Disposition: HOME SELF-CARE Condition: Good Instructions: Depression (ED) Referrals: None,Stated [Primary Care Provider] - 1-2 days
[2018-06-03 05:34] LABS: Appearance,Urine Clear (Clear); Basophils # (A) 0.1 k/uL (0-0.2); Basophils % (A) 1 %; Bilirubin,Urine Negative (Negative); Blood,Urine Negative (Negative); Color,Urine Yellow; Eosinophils # (A) 0.1 k/uL (0-0.7); Eosinophils % (A) 1 %; Glucose,Urine (UA) Negative (Negative); HCT 47.3 % (39.0-53.0); HGB 15.3 gm/dL (13.0-17.5); Ketones,Urine Negative (Negative); Leukocyte Esterase,Urine Negative (Negative); Lymphocytes # (A) 3.7 k/uL (1.0-4.8); Lymphocytes % (A) 45 %; MCH 31.8 pg (25.0-35.0); MCHC 32.3 g/dL (31.0-37.0); MCV 98.6 fL (80.0-100.0); Macrocytosis Slight; Monocytes # (A) 0.5 k/uL (0-1.0); Monocytes % (A) 6 %; Neutrophils # (A) 3.5 k/uL (1.3-7.7); Neutrophils % (A) 43 %; Nitrite,Urine Negative (Negative); Platelet Count 262 k/uL (150-450); Protein,Urine Negative (Negative); RDW 14.6 % (11.5-15.5); Specific Gravity,Urine 1.011 (1.001-1.035); Urobilinogen,Urine <2.0 mg/dL (<2.0); WBC 8.1 k/uL (3.8-10.6)
[2018-06-03 05:44] LABS: ALT 104 U/L (21-72); AST 58 U/L (17-59); Albumin 4.8 g/dL (3.5-5.0); Alkaline Phosphatase 60 U/L (38-126); Anion Gap 7 mmol/L; Blood Urea Nitrogen 10 mg/dL (9-20); Carbon Dioxide 31 mmol/L (22-30); Chloride 107 mmol/L (98-107); Glucose 96 mg/dL (74-99); Potassium 4.8 mmol/L (3.5-5.1); Sodium 145 mmol/L (137-145); Total Bilirubin 0.3 mg/dL (0.2-1.3)
[2018-06-03 05:45] LABS: Amphetamine Screen,Urine Not Detected (NotDetected); Barbiturate Screen,Urine Not Detected (NotDetected); Benzodiazepines Screen,Urine Not Detected (NotDetected); Cocaine Screen,Urine Not Detected (NotDetected); Methadone Screen, Urine Not Detected (NotDetected); Opiate Screen,Urine Not Detected (NotDetected); Oxycodone Screen, Urine Not Detected (NotDetected); Phencyclidine Screen,Urine Not Detected (NotDetected); Tricyclic Antidepressant,Urine Not Detected (NotDetected); Urn Cannabinoid Scrn Not Detected (NotDetected)
[2018-06-03 06:35] VITALS: RESP 20
[2018-06-03 12:17] VITALS: BP 124/77; PULSE 82; TEMP 98
== END 2018-06-03 12:17 | disposition home or self-care (01) ==
LOC: EC 04:30
DX: F43.21 Adjustment disorder with depressed mood (principal); F10.129 Alcohol abuse with intoxication, unspecified; R45.851 Suicidal ideations; F41.9 Anxiety disorder, unspecified; F17.200 Nicotine dependence, unspecified, uncomplicated; Z79.899 Other long term (current) drug therapy
CPT/HCPCS: 36415; 80053; 80306; 81003; 82075; 84443; 85025; 99285

== ENCOUNTER 2018-06-07 03:00 | Emergency (ER) | payer OTHER ==
--- NOTE | 2018-06-07 14:57 | ED ---
General Adult HPI - General Chief complaint: Psychiatric Symptoms Stated complaint: Mental Health Time Seen by Provider: 06/07/18 03:35 Source: patient Mode of arrival: ambulatory Limitations: no limitations - Related Data Home Medications Medication Instructions Recorded Confirmed QUEtiapine [SEROquel] 100 mg PO HS 03/03/18 06/07/18 Previous Rx's Medication Instructions Recorded Albuterol Inhaler [Ventolin Hfa 2 puff INHALATION RT-Q6H PRN #1 02/13/18 Inhaler] puff Gabapentin [Neurontin] 600 mg PO TID #90 cap 02/13/18 Sertraline [Zoloft] 100 mg PO DAILY #30 tab 02/13/18 Allergies Allergy/AdvReac Type Severity Reaction Status Date / Time No Known Allergies Allergy Verified 06/07/18 09:19 Review of Systems ROS Statement: Those systems with pertinent positive or pertinent negative responses have been documented in the HPI. ROS Other: All systems not noted in ROS Statement are negative. Past Medical History Past Medical History: No Reported History Additional Past Medical History / Comment(s): chronic back pain, history of depression etoh abuse History of Any Multi-Drug Resistant Organisms: None Reported Past Surgical History: Orthopedic Surgery Additional Past Surgical History / Comment(s): right knee Past Anesthesia/Blood Transfusion Reactions: No Reported Reaction Past Psychological History: Anxiety, Depression Smoking Status: Current every day smoker Past Alcohol Use History: Abuse, Daily, Heavy Past Drug Use History: Cocaine, Marijuana - Past Family History Father History Unknown: Yes Additional Family Medical History / Comment(s): Unable to obtain family history secondary altered mentation General Exam Limitations: no limitations Course Vital Signs 06/07/18 06/07/18 03:13 06:55 Temperature 97.6 F Pulse Rate 83 101 H Respiratory 16 17 Rate Blood Pressure 119/79 129/65 O2 Sat by Pulse 97 97 Oximetry Medical Decision Making - Medical Decision Making Patient is sent out to me by previous shift resident. Plans to follow up on EPS recommendations. EPS evaluated patient and patient for discharge. Disposition Clinical Impression: Suicidal ideation Disposition: HOME SELF-CARE Condition: Good Instructions: Help Prevent Suicide (ED) Is patient prescribed a controlled substance at d/c from ED?: No Referrals: None,Stated [Primary Care Provider] - 1-2 days Time of Disposition: 14:54
[2018-06-07 15:12] VITALS: BP 132/81; PULSE 85; RESP 18; TEMP 98.7
--- NOTE | 2018-06-09 05:43 | CDI ---
Dear Kirit Monroy DO: Please do addendum History of Present Illness and Physical Examination. Thank you, Nitesh Bonilla, [employer]. If you have any questions, please contact Managed Care Nurse at [phone]. [facility]
== END 2018-06-07 15:05 | disposition home or self-care (01) ==
LOC: EC 03:00
DX: R45.851 Suicidal ideations (principal); F32.9 Major depressive disorder, single episode, unspecified; F41.9 Anxiety disorder, unspecified; F17.200 Nicotine dependence, unspecified, uncomplicated; Z79.899 Other long term (current) drug therapy
CPT/HCPCS: 82075; 99285

== ENCOUNTER 2018-06-08 03:31 | Emergency (ER) | payer OTHER ==
[2018-06-08 03:40] VITALS: TEMP 97.3
--- NOTE | 2018-06-08 04:10 | ED ---
Psych HPI - General Source: patient, RN notes reviewed Mode of arrival: ambulatory Limitations: no limitations <Mick Frederick - Last Filed: 06/08/18 04:09> <Kirit Monroy - Last Filed: 06/08/18 13:04> - General Chief Complaint: Psychiatric Symptoms Stated Complaint: Cancer Time Seen by Provider: 06/08/18 03:41 - History of Present Illness Initial Comments: 32-year-old male present emergency department chief complaint depression, homelessness, suicidal ideation. Patient states he's been drinking alcohol all night. He is a regular drinker. Patient states she is very depressed and wants to kill himself no plan. Patient denies any physical complaints at this time. Denies chest pain, shortness breath, headache, dizziness, nausea vomiting. Patient states is not taking any medications currently. (Mick Frederick) - Related Data Home Medications Medication Instructions Recorded Confirmed QUEtiapine [SEROquel] 100 mg PO HS 03/03/18 06/08/18 Previous Rx's Medication Instructions Recorded Albuterol Inhaler [Ventolin Hfa 2 puff INHALATION RT-Q6H PRN #1 02/13/18 Inhaler] puff Gabapentin [Neurontin] 600 mg PO TID #90 cap 02/13/18 Sertraline [Zoloft] 100 mg PO DAILY #30 tab 02/13/18 Allergies Allergy/AdvReac Type Severity Reaction Status Date / Time No Known Allergies Allergy Verified 06/08/18 08:21 Review of Systems ROS Other: All systems not noted in ROS Statement are negative. <Mick rFederick - Last Filed: 06/08/18 04:09> ROS Other: All systems not noted in ROS Statement are negative. <Kirit Monroy - Last Filed: 06/08/18 13:04> ROS Statement: Those systems with pertinent positive or pertinent negative responses have been documented in the HPI. Past Medical History Past Medical History: No Reported History Additional Past Medical History / Comment(s): chronic back pain, history of depression etoh abuse History of Any Multi-Drug Resistant Organisms: None Reported Past Surgical History: Orthopedic Surgery Additional Past Surgical History / Comment(s): right knee Past Anesthesia/Blood Transfusion Reactions: No Reported Reaction Past Psychological History: Anxiety, Depression Smoking Status: Current every day smoker Past Alcohol Use History: Abuse, Daily, Heavy Past Drug Use History: Cocaine, Marijuana - Past Family History Father History Unknown: Yes Additional Family Medical History / Comment(s): Unable to obtain family history secondary altered mentation <Mick Frederick - Last Filed: 06/08/18 04:09> General Exam Limitations: no limitations General appearance: alert, in no apparent distress Head exam: Present: atraumatic, normocephalic, normal inspection Eye exam: Present: normal appearance, PERRL, EOMI. Absent: scleral icterus, conjunctival injection, periorbital swelling ENT exam: Present: normal exam, normal oropharynx, mucous membranes moist, TM's normal bilaterally Neck exam: Present: normal inspection. Absent: tenderness, meningismus, lymphadenopathy Respiratory exam: Present: normal lung sounds bilaterally. Absent: respiratory distress, wheezes, rales, rhonchi, stridor Cardiovascular Exam: Present: regular rate, normal rhythm, normal heart sounds. Absent: systolic murmur, diastolic murmur, rubs, gallop, clicks GI/Abdominal exam: Present: soft, normal bowel sounds. Absent: distended, tenderness, guarding, rebound, rigid Neurological exam: Present: alert, oriented X3, CN II-XII intact Psychiatric exam: Present: depressed Skin exam: Present: warm, dry, intact, normal color. Absent: rash <Mick Frederick - Last Filed: 06/08/18 04:09> Vital Signs 06/08/18 03:36 Temperature 97.3 F L Pulse Rate 101 H Respiratory 15 Rate Blood Pressure 141/88 O2 Sat by Pulse 99 Oximetry Medical Decision Making <Mick Frederick - Last Filed: 06/08/18 04:09> - Lab Data Result diagrams: 06/08/18 05:10 06/08/18 05:10 <Kirit Monroy - Last Filed: 06/08/18 13:04> - Medical Decision Making Patient is signed out to me by previous shift provider. Patient was applied by EPS. Clear for discharge. (Kirit Monroy) - Lab Data Lab Results 06/08/18 06/08/18 Range/Units 05:10 05:10 WBC 6.7 (3.8-10.6) k/uL RBC 4.80 (4.30-5.90) m/uL Hgb 15.4 (13.0-17.5) gm/dL Hct 46.9 (39.0-53.0) % MCV 97.7 (80.0-100.0) fL MCH 32.1 (25.0-35.0) pg MCHC 32.8 (31.0-37.0) g/dL RDW 14.1 (11.5-15.5) % Plt Count 362 (150-450) k/uL Neutrophils % 51 % Lymphocytes % 38 % Monocytes % 6 % Eosinophils % 1 % Basophils % 1 % Neutrophils # 3.4 (1.3-7.7) k/uL Lymphocytes # 2.5 (1.0-4.8) k/uL Monocytes # 0.4 (0-1.0) k/uL Eosinophils # 0.1 (0-0.7) k/uL Basophils # 0.1 (0-0.2) k/uL Sodium 142 (137-145) mmol/L Potassium 3.7 (3.5-5.1) mmol/L Chloride 106 (98-107) mmol/L Carbon Dioxide 23 (22-30) mmol/L Anion Gap 13 mmol/L BUN 13 (9-20) mg/dL Creatinine 0.75 (0.66-1.25) mg/dL Est GFR (CKD-EPI)AfAm >90 (>60 ml/min/1.73 sqM) Est GFR (CKD-EPI)NonAf >90 (>60 ml/min/1.73 sqM) Glucose 106 H (74-99) mg/dL Calcium 9.0 (8.4-10.2) mg/dL Total Bilirubin 0.7 (0.2-1.3) mg/dL AST 83 H (17-59) U/L ALT 89 H (21-72) U/L Alkaline Phosphatase 73 (38-126) U/L Total Protein 7.4 (6.3-8.2) g/dL Albumin 4.5 (3.5-5.0) g/dL Lipase 114 (23-300) U/L Disposition <Mick Frederick - Last Filed: 06/08/18 04:09> Is patient prescribed a controlled substance at d/c from ED?: No Time of Disposition: 13:04 <Kirit Monroy - Last Filed: 06/08/18 13:04> Clinical Impression: Suicidal ideation Disposition: HOME SELF-CARE Condition: Good Referrals: None,Stated [Primary Care Provider] - 1-2 days
[2018-06-08 05:58] LABS: Basophils # (A) 0.1 k/uL (0-0.2); Basophils % (A) 1 %; Eosinophils # (A) 0.1 k/uL (0-0.7); Eosinophils % (A) 1 %; HCT 46.9 % (39.0-53.0); HGB 15.4 gm/dL (13.0-17.5); Lymphocytes # (A) 2.5 k/uL (1.0-4.8); Lymphocytes % (A) 38 %; MCH 32.1 pg (25.0-35.0); MCHC 32.8 g/dL (31.0-37.0); MCV 97.7 fL (80.0-100.0); Monocytes # (A) 0.4 k/uL (0-1.0); Monocytes % (A) 6 %; Neutrophils # (A) 3.4 k/uL (1.3-7.7); Neutrophils % (A) 51 %; Platelet Count 362 k/uL (150-450); RDW 14.1 % (11.5-15.5); WBC 6.7 k/uL (3.8-10.6)
[2018-06-08 06:00] LABS: ALT 89 U/L (21-72); AST 83 U/L (17-59); Albumin 4.5 g/dL (3.5-5.0); Alkaline Phosphatase 73 U/L (38-126); Anion Gap 13 mmol/L; Blood Urea Nitrogen 13 mg/dL (9-20); Carbon Dioxide 23 mmol/L (22-30); Chloride 106 mmol/L (98-107); Glucose 106 mg/dL (74-99); Lipase 114 U/L (23-300); Potassium 3.7 mmol/L (3.5-5.1); Sodium 142 mmol/L (137-145); Total Bilirubin 0.7 mg/dL (0.2-1.3); Total Protein 7.4 g/dL (6.3-8.2)
[2018-06-08 14:04] VITALS: BP 139/81; PULSE 103; RESP 18
== END 2018-06-08 13:55 | disposition home or self-care (01) ==
LOC: EC 03:31
DX: R45.851 Suicidal ideations (principal); F32.9 Major depressive disorder, single episode, unspecified; F17.200 Nicotine dependence, unspecified, uncomplicated; Z79.899 Other long term (current) drug therapy; Z59.0 Homelessness
CPT/HCPCS: 36415; 80053; 83690; 85025; 99284

== ENCOUNTER 2018-06-09 00:15 | Emergency (ER) | payer OTHER ==
[2018-06-09 00:24] VITALS: RESP 18; TEMP 97.9
--- NOTE | 2018-06-09 01:49 | XR ---
EXAMINATION TYPE: XR chest 2V DATE OF EXAM: 06/09/2018 COMPARISON: 02/10/2018 HISTORY: Cough TECHNIQUE: Frontal and lateral views of the chest are obtained. FINDINGS: Heart and mediastinum are normal. Lungs are clear. Diaphragm is normal. Bony thorax appear s normal. IMPRESSION: Normal chest. No change.
--- NOTE | 2018-06-09 02:39 | ED ---
URI HPI - General Chief Complaint: Upper Respiratory Infection Stated Complaint: URI Time Seen by Provider: 06/09/18 01:37 Source: patient, RN notes reviewed Mode of arrival: ambulatory Limitations: no limitations - History of Present Illness Initial Comments: 32-year-old male presents emergency Department chief complaint of cough and cold -like symptoms. Patient states has been sick for last few days. Patient denies any chest pain or shortness of breath. Denies any headache or dizziness. He's had mild runny nose. Patient has been in emergency department several times for psychiatric evaluations. Patient denies being suicidal or homicidal. Patient did drink alcohol or 12 hours ago. - Related Data Home Medications Medication Instructions Recorded Confirmed QUEtiapine [SEROquel] 100 mg PO HS 03/03/18 06/08/18 Previous Rx's Medication Instructions Recorded Albuterol Inhaler [Ventolin Hfa 2 puff INHALATION RT-Q6H PRN #1 02/13/18 Inhaler] puff Gabapentin [Neurontin] 600 mg PO TID #90 cap 02/13/18 Sertraline [Zoloft] 100 mg PO DAILY #30 tab 02/13/18 Allergies Allergy/AdvReac Type Severity Reaction Status Date / Time No Known Allergies Allergy Verified 06/09/18 00:24 Review of Systems ROS Statement: Those systems with pertinent positive or pertinent negative responses have been documented in the HPI. ROS Other: All systems not noted in ROS Statement are negative. Past Medical History Past Medical History: No Reported History Additional Past Medical History / Comment(s): chronic back pain, history of depression etoh abuse History of Any Multi-Drug Resistant Organisms: None Reported Past Surgical History: Orthopedic Surgery Additional Past Surgical History / Comment(s): right knee Past Anesthesia/Blood Transfusion Reactions: No Reported Reaction Past Psychological History: Anxiety, Depression Smoking Status: Current every day smoker Past Alcohol Use History: Abuse, Daily, Heavy Past Drug Use History: Cocaine, Marijuana - Past Family History Father History Unknown: Yes Additional Family Medical History / Comment(s): Unable to obtain family history secondary altered mentation General Exam Limitations: no limitations General appearance: alert, in no apparent distress Head exam: Present: atraumatic, normocephalic, normal inspection Eye exam: Present: normal appearance, PERRL, EOMI. Absent: scleral icterus, conjunctival injection, periorbital swelling ENT exam: Present: normal exam, normal oropharynx, mucous membranes moist, TM's normal bilaterally, normal external ear exam Neck exam: Present: normal inspection, full ROM. Absent: tenderness, meningismus, lymphadenopathy Respiratory exam: Present: normal lung sounds bilaterally. Absent: respiratory distress, wheezes, rales, rhonchi, stridor Cardiovascular Exam: Present: regular rate, normal rhythm, normal heart sounds. Absent: systolic murmur, diastolic murmur, rubs, gallop, clicks GI/Abdominal exam: Present: soft, normal bowel sounds. Absent: distended, tenderness, guarding, rebound, rigid Course Vital Signs 06/09/18 00:21 Temperature 97.9 F Pulse Rate 99 Respiratory 18 Rate Blood Pressure 132/83 O2 Sat by Pulse 98 Oximetry Medical Decision Making - Medical Decision Making Patient had chest x-ray in emergency department showed no acute NH. Patient has a viral URI. Patient is stable patient is clinically sober. Patient we discharge patient is not suicidal or homicidal. Disposition Clinical Impression: URI (upper respiratory infection) Disposition: HOME SELF-CARE Condition: Stable Instructions: Upper Respiratory Infection (ED) Additional Instructions: Please return to the Emergency Department if symptoms worsen or any other concerns. Is patient prescribed a controlled substance at d/c from ED?: No Referrals: None,Stated [Primary Care Provider] - 1-2 days Time of Disposition: 02:39
[2018-06-09 02:55] VITALS: BP 109/72; PULSE 91
== END 2018-06-09 03:01 | disposition home or self-care (01) ==
LOC: EC 00:15
DX: J06.9 Acute upper respiratory infection, unspecified (principal); F32.9 Major depressive disorder, single episode, unspecified; F17.200 Nicotine dependence, unspecified, uncomplicated; Z79.899 Other long term (current) drug therapy
CPT/HCPCS: 71046; 99283

== ENCOUNTER 2018-06-12 22:19 | Emergency (ER) | payer OTHER ==
--- NOTE | 2018-06-12 22:23 | ED ---
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 Police report that they've placed the patient under arrest however on their breathalyzer her his alcohol level was over 300 which requires medical evaluation. Patient reports he's been drinking throughout the day. He denies any acute complaints. Patient is very well- known alcoholic, he is awake alert oriented with slurred speech but otherwise functioning well with an old related alcohol level. Patient denies any complaints or injuries. - Related Data Home Medications Medication Instructions Recorded Confirmed QUEtiapine [SEROquel] 100 mg PO HS 03/03/18 06/12/18 Previous Rx's Medication Instructions Recorded Albuterol Inhaler [Ventolin Hfa 2 puff INHALATION RT-Q6H PRN #1 02/13/18 Inhaler] puff Gabapentin [Neurontin] 600 mg PO TID #90 cap 02/13/18 Sertraline [Zoloft] 100 mg PO DAILY #30 tab 02/13/18 chlordiazePOXIDE HCl [Librium] 50 mg PO QID #34 capsule 06/13/18 chlordiazePOXIDE HCl [Librium] 50 mg PO QID #34 capsule 06/13/18 Allergies Allergy/AdvReac Type Severity Reaction Status Date / Time No Known Allergies Allergy Verified 06/12/18 22:48 Review of Systems ROS Statement: Those systems with pertinent positive or pertinent negative responses have been documented in the HPI. ROS Other: All systems not noted in ROS Statement are negative. Past Medical History Past Medical History: No Reported History Additional Past Medical History / Comment(s): chronic back pain, history of depression etoh abuse History of Any Multi-Drug Resistant Organisms: None Reported Past Surgical History: Orthopedic Surgery Additional Past Surgical History / Comment(s): right knee Past Anesthesia/Blood Transfusion Reactions: No Reported Reaction Past Psychological History: Anxiety, Depression Smoking Status: Current every day smoker Past Alcohol Use History: Abuse, Daily, Heavy Past Drug Use History: Cocaine, Marijuana - Past Family History Father History Unknown: Yes Additional Family Medical History / Comment(s): Unable to obtain family history secondary altered mentation General Exam - General Exam Comments Initial Comments: Physical Exam GENERAL: Patient is well-developed and well-nourished. Patient is nontoxic and well- hydrated and is in no distress. HENT: Normocephalic, Atraumatic. No evidence of injury EYES: PERRL, EOMI PULMONARY: Unlabored respirations. No audible rales rhonchi or wheezing was noted. CARDIOVASCULAR: There is a regular rate and rhythm without any murmurs gallops or rubs. ABDOMEN: Soft and nontender with normal bowel sounds. SKIN: Skin is clear with no lesions or rashes and otherwise unremarkable. : Deferred NEUROLOGIC: Patient is alert and oriented x3. Moving all extremities spontaneously Speech is somewhat slurred consistent with alcohol intoxication MUSCULOSKELETAL: Normal extremities with adequate strength and full range of motion. No lower extremity swelling or edema. No calf tenderness. PSYCHIATRIC: Normal psychiatric evaluation. Limitations: no limitations Course Vital Signs 06/12/18 06/12/18 06/12/18 22:24 22:29 23:28 Temperature 97.9 F Pulse Rate 91 Respiratory 16 16 Rate Blood Pressure 133/85 O2 Sat by Pulse 100 Oximetry 06/13/18 06/13/18 00:08 00:20 Temperature 97.7 F Pulse Rate 83 Respiratory 16 18 Rate Blood Pressure 124/74 O2 Sat by Pulse 100 Oximetry Medical Decision Making - Medical Decision Making The patient was seen and evaluated, history is obtained from the patient and placed Per PD his breathalyzer was greater than 300 Breathalyzer here is 285 DD comfortable taking patient with a breathalyzer less than 300 Patient remained in our emergency department under observation for a few hours. He rested comfortably. At this time. He is comfortable taking the in their custody understanding that he is still intoxicated. Due to the fact that the patient is a severe alcoholic I do have a high suspicion that he will develop withdrawal. We'll treat with Librium and give him a prescription for such. Disposition Clinical Impression: Alcohol use disorder, Alcohol intoxication Disposition: HOME SELF-CARE Condition: Stable Instructions: Alcohol Intoxication (ED) Prescriptions: chlordiazePOXIDE HCl [Librium] 50 mg PO QID #34 capsule Is patient prescribed a controlled substance at d/c from ED?: Yes Referrals: None,Stated [Primary Care Provider] - 1-2 days
[2018-06-13 00:20] VITALS: BP 124/74; PULSE 83; RESP 18; TEMP 97.7
[2018-06-13] MEDS ORDERED: chlordiazePOXIDE 25 MG CAP PO STA (00:22)
== END 2018-06-13 00:40 | disposition home or self-care (01) ==
LOC: EC 22:19
DX: F10.929 Alcohol use, unspecified with intoxication, unspecified (principal); Y90.8 Blood alcohol level of 240 mg/100 ml or more; F17.200 Nicotine dependence, unspecified, uncomplicated; F32.9 Major depressive disorder, single episode, unspecified; Z79.899 Other long term (current) drug therapy
CPT/HCPCS: 99283

== ENCOUNTER 2018-06-18 05:49 | Emergency (ER) | payer OTHER ==
[2018-06-18 05:55] VITALS: RESP 16
[2018-06-18] MEDS ORDERED: IBUPROFEN 800 MG TAB PO STA (08:48)
[2018-06-18] MEDS ORDERED: DIAZEPAM 5 MG TAB PO STA (08:48)
[2018-06-18] MEDS ORDERED: ONDANSETRON 4 MG TAB PO STA (08:48)
--- NOTE | 2018-06-18 08:49 | ED ---
Back Pain HPI - General Chief Complaint: Back Pain/Injury Stated Complaint: back pain Time Seen by Provider: 06/18/18 07:50 Source: patient, EMS, RN notes reviewed, old records reviewed Limitations: no limitations - History of Present Illness Initial Comments: This is a 32-year-old male the ER for evaluation is patient resents today for evaluation regards to back pain patient has multiple chronic issues mainly dealing to substance abuse. Patient states that he has been off multiple different medications and currently here for evaluation of not having his pain medication, also not drinking L call. Patient is now continuing with abdominal pain. Patient denies any other injuries. No neurological deficit MD Complaint: back pain -: unknown Similar Symptoms Previously: Yes Place: home Radiation: none Severity: mild Severity scale (1-10): 2 Quality: aching Consistency: constant Improves With: movement Worsens With: none Context: turning/twisting Associated Symptoms: denies other symptoms - Related Data Allergies Allergy/AdvReac Type Severity Reaction Status Date / Time No Known Allergies Allergy Verified 06/18/18 10:23 Review of Systems ROS Statement: Those systems with pertinent positive or pertinent negative responses have been documented in the HPI. ROS Other: All systems not noted in ROS Statement are negative. Past Medical History Past Medical History: No Reported History Additional Past Medical History / Comment(s): chronic back pain, history of depression etoh abuse History of Any Multi-Drug Resistant Organisms: None Reported Past Surgical History: Orthopedic Surgery Additional Past Surgical History / Comment(s): right knee Past Anesthesia/Blood Transfusion Reactions: No Reported Reaction Past Psychological History: Anxiety, Depression Smoking Status: Current every day smoker Past Alcohol Use History: Abuse, Daily, Heavy Past Drug Use History: Cocaine, Marijuana - Past Family History Father History Unknown: Yes Additional Family Medical History / Comment(s): Unable to obtain family history secondary altered mentation General Exam Limitations: no limitations General appearance: alert, in no apparent distress Head exam: Present: atraumatic, normocephalic, normal inspection Eye exam: Present: normal appearance, PERRL, EOMI. Absent: scleral icterus, conjunctival injection, periorbital swelling ENT exam: Present: normal exam, mucous membranes moist Neck exam: Present: normal inspection. Absent: tenderness, meningismus, lymphadenopathy Respiratory exam: Present: normal lung sounds bilaterally. Absent: respiratory distress, wheezes, rales, rhonchi, stridor Cardiovascular Exam: Present: regular rate, normal rhythm, normal heart sounds. Absent: systolic murmur, diastolic murmur, rubs, gallop, clicks GI/Abdominal exam: Present: soft, normal bowel sounds. Absent: distended, tenderness, guarding, rebound, rigid Extremities exam: Present: normal inspection, full ROM, normal capillary refill. Absent: tenderness, pedal edema, joint swelling, calf tenderness Back exam: Present: normal inspection Neurological exam: Present: alert, oriented X3, CN II-XII intact Psychiatric exam: Present: normal affect, normal mood Skin exam: Present: warm, dry, intact, normal color. Absent: rash Course Vital Signs 06/18/18 06/18/18 05:51 09:23 Temperature 97.6 F 98 F Pulse Rate 86 82 Respiratory 16 16 Rate Blood Pressure 133/90 136/89 O2 Sat by Pulse 100 100 Oximetry - Reevaluation(s) Reevaluation #1: 06/18/18 10:25 Medical record is reviewed, patient well-known to this facility for evaluation regarding chronic depression and substance abuse issues Reevaluation #2: 06/18/18 10:25 Patient symptoms are improved Medical Decision Making - Medical Decision Making 30 female the ER for evaluation of substance abuse substance withdrawal and back pain. Patient can be discharged home Disposition Clinical Impression: Alcohol use disorder, Opiate addiction, Mechanical back pain Disposition: HOME SELF-CARE Condition: Good Instructions: Acute Low Back Pain (ED) Is patient prescribed a controlled substance at d/c from ED?: No Referrals: None,Stated [Primary Care Provider] - 1-2 days
[2018-06-18] MEDS ORDERED: cloNIDine 0.3 MG/24HR PATCH TRANSDERM SCH (09:00)
[2018-06-18 09:24] VITALS: BP 136/89; PULSE 82; TEMP 98
== END 2018-06-18 09:45 | disposition home or self-care (01) ==
LOC: EC 05:49
DX: F11.20 Opioid dependence, uncomplicated (principal); M54.9 Dorsalgia, unspecified; F10.99 Alcohol use, unspecified with unspecified alcohol-induced disorder; F17.200 Nicotine dependence, unspecified, uncomplicated
CPT/HCPCS: 99284

== ENCOUNTER 2018-06-25 14:52 | Observation (INO) | payer OTHER ==
--- NOTE | 2018-06-25 15:37 | ED ---
General Adult HPI - General Chief complaint: Psychiatric Symptoms Stated complaint: ETOH Time Seen by Provider: 06/25/18 15:00 Source: EMS, RN notes reviewed Mode of arrival: EMS Limitations: no limitations - History of Present Illness Initial comments: This is a 32-year-old male who presents emergency Department intoxicated and stating he wants to shoot himself. Patient is very uncooperative and won't answer any other questions though he states he has no other complaints except he wants to kill himself. Patient states he drank quite a bit today. She denies making any attempts on harming himself. He denies taking any pills in attempt to harm himself - Related Data Home Medications Medication Instructions Recorded Confirmed No Known Home Medications 06/18/18 06/25/18 Allergies Allergy/AdvReac Type Severity Reaction Status Date / Time No Known Allergies Allergy Verified 06/25/18 15:03 Review of Systems ROS Statement: Those systems with pertinent positive or pertinent negative responses have been documented in the HPI. ROS Other: All systems not noted in ROS Statement are negative. Past Medical History Past Medical History: No Reported History Additional Past Medical History / Comment(s): chronic back pain, history of depression etoh abuse History of Any Multi-Drug Resistant Organisms: None Reported Past Surgical History: Orthopedic Surgery Additional Past Surgical History / Comment(s): right knee Past Anesthesia/Blood Transfusion Reactions: No Reported Reaction Past Psychological History: Anxiety, Depression Smoking Status: Current every day smoker Past Alcohol Use History: Abuse, Daily, Heavy Past Drug Use History: Cocaine, Marijuana - Past Family History Father History Unknown: Yes Additional Family Medical History / Comment(s): Unable to obtain family history secondary altered mentation General Exam - General Exam Comments Initial Comments: GENERAL: Patient is well-developed and well-nourished. Patient is nontoxic and well- hydrated and is in no acute distress but seems very intoxicated. ENT: Neck is soft and supple. No significant lymphadenopathy is noted. Neck has full range of motion without eliciting any pain. EYES: The sclera were anicteric and conjunctiva were pink and moist. Extraocular movements were intact and pupils were equal round and reactive to light. Eyelids were unremarkable. PULMONARY: Unlabored respirations. Good breath sounds bilaterally. No audible rales rhonchi or wheezing was noted. CARDIOVASCULAR: There is a regular rate and rhythm without any murmurs gallops or rubs. ABDOMEN: Soft and nontender with normal bowel sounds. SKIN: Skin is clear with no lesions or rashes and otherwise unremarkable. NEUROLOGIC: Patient is alert and oriented x3. Cranial nerves II through XII are grossly intact. Motor and sensory are also intact. Normal speech, volume and content. Symmetrical smile. MUSCULOSKELETAL: Normal extremities with adequate strength and full range of motion. LYMPHATICS: No significant lymphadenopathy is noted PSYCHIATRIC: Patient claims he suicidal and wants to shoot himself. Patient is very intoxicated. Limitations: no limitations Course Vital Signs 06/25/18 15:01 Temperature 98.6 F Pulse Rate 99 Respiratory 18 Rate Blood Pressure 139/90 O2 Sat by Pulse 97 Oximetry Medical Decision Making - Medical Decision Making Patient is intoxicated and is very uncooperative but he keeps repeating that he is suicidal. - Lab Data Result diagrams: 06/25/18 15:38 06/25/18 15:38 Lab Results 06/25/18 06/25/18 Range/Units 15:38 15:38 WBC 8.0 (3.8-10.6) k/uL RBC 4.48 (4.30-5.90) m/uL Hgb 15.2 (13.0-17.5) gm/dL Hct 45.0 (39.0-53.0) % MCV 100.5 H (80.0-100.0) fL MCH 34.0 (25.0-35.0) pg MCHC 33.8 (31.0-37.0) g/dL RDW 13.8 (11.5-15.5) % Plt Count 162 D (150-450) k/uL Macrocytosis Slight Sodium 148 H (137-145) mmol/L Potassium 4.6 (3.5-5.1) mmol/L Chloride 112 H (98-107) mmol/L Carbon Dioxide 29 (22-30) mmol/L Anion Gap 7 mmol/L BUN 10 (9-20) mg/dL Creatinine 0.77 (0.66-1.25) mg/dL Est GFR (CKD-EPI)AfAm >90 (>60 ml/min/1.73 sqM) Est GFR (CKD-EPI)NonAf >90 (>60 ml/min/1.73 sqM) Glucose 100 H (74-99) mg/dL Calcium 9.0 (8.4-10.2) mg/dL Total Bilirubin 0.4 (0.2-1.3) mg/dL AST 198 H (17-59) U/L ALT 112 H (21-72) U/L Alkaline Phosphatase 73 (38-126) U/L Total Protein 7.6 (6.3-8.2) g/dL Albumin 4.6 (3.5-5.0) g/dL Serum Alcohol 354 H* mg/dL Disposition Clinical Impression: Alcohol intoxication, Suicidal ideation Disposition: ADMITTED IP TO THIS HOSP Referrals: None,Stated [Primary Care Provider] - 1-2 days Time of Disposition: 17:21
[2018-06-25] MEDS ORDERED: SODIUM CHLORIDE 0.9% 1,000 ML with MVI, ADULT NO.4 WITH VIT K 10 ML, THIAMINE 100 MG, F... IV ONE ×4 (15:45)
[2018-06-25 16:01] LABS: HGB 15.2 gm/dL (13.0-17.5); MCHC 33.8 g/dL (31.0-37.0); MCV 100.5 fL (80.0-100.0); Macrocytosis Slight; Mean Platelet Volume 7.2; RBC 4.48 m/uL (4.30-5.90); RDW 13.8 % (11.5-15.5)
[2018-06-25 16:06] LABS: Platelet Count 162 k/uL (150-450)
[2018-06-25 16:16] LABS: ALT 112 U/L (21-72); AST 198 U/L (17-59); Albumin 4.6 g/dL (3.5-5.0); Alkaline Phosphatase 73 U/L (38-126); Anion Gap 7 mmol/L; Blood Urea Nitrogen 10 mg/dL (9-20); Carbon Dioxide 29 mmol/L (22-30); Chloride 112 mmol/L (98-107); Glucose 100 mg/dL (74-99); Potassium 4.6 mmol/L (3.5-5.1); Sodium 148 mmol/L (137-145); Total Bilirubin 0.4 mg/dL (0.2-1.3); Total Protein 7.6 g/dL (6.3-8.2)
[2018-06-25 16:32] LABS: Alcohol 354 mg/dL
[2018-06-25] MEDS ORDERED: SODIUM CHLORIDE 0.9% 1,000 ML IV ONE (17:23)
[2018-06-25] MEDS ORDERED: LORazepam 2 MG/ML INJ IV PRN ×2 (17:25)
[2018-06-25] MEDS ORDERED: THIAMINE 100 MG/ML 2 ML VIAL IM STA (17:25)
--- NOTE | 2018-06-25 18:01 | P.HPIM ---
History of Present Illness H&P Date: 06/25/18 Chief Complaint: alcohol intoxication, suicidal ideation 32-year-old male with PMH of sciatica and alcohol abuse presents the ED for suicidal ideation. This history and physical is limited due to the intoxicated nature of the patient. Patient is unable to tell me the reason for his suicidal ideation or whether he has a plan to act out his thoughts. patient reports smoking one half packs of cigarettes daily. He also reports drinking 2 tall boys daily. He denies any illicit drug use. Patient reports chronic lower back pain. She states that this pain is related to sciatica. Pain occasionally radiates to the right lower extremity. Pain is 10 out of 10 in severity. Pain is usually alleviated with gabapentin and codeine. He denies any bladder or bowel incontinence, saddle anesthesia. Patient denies any headaches, lower extremity edema, nausea, vomiting, fever, chest pain, shortness of breath, cough, palpitations, changes in urination or bowel habits. In the ED, CBC showed a macrocytosis of 100.5. CMP showed a sodium of 148, chloride of 112, glucose of 100, AST of 198 and ALTs of 112. Serum alcohol level is 354. Patient is being admitted for alcohol intoxication, suicidal ideation, psychiatry is on board. Review of Systems All systems: negative Past Medical History Past Medical History: No Reported History Additional Past Medical History / Comment(s): chronic back pain, history of depression etoh abuse History of Any Multi-Drug Resistant Organisms: None Reported Past Surgical History: Orthopedic Surgery Additional Past Surgical History / Comment(s): right knee Past Anesthesia/Blood Transfusion Reactions: No Reported Reaction Past Psychological History: Anxiety, Depression Smoking Status: Current every day smoker Past Alcohol Use History: Abuse, Daily, Heavy Past Drug Use History: Cocaine, Marijuana - Past Family History Father History Unknown: Yes Additional Family Medical History / Comment(s): Unable to obtain family history secondary altered mentation Medications and Allergies Home Medications Medication Instructions Recorded Confirmed Type No Known Home Medications 06/18/18 06/25/18 History Allergies Allergy/AdvReac Type Severity Reaction Status Date / Time No Known Allergies Allergy Verified 06/25/18 15:03 Physical Exam Vitals: Vital Signs Temp Pulse Resp BP Pulse Ox 06/25/18 15:01 98.6 F 99 18 139/90 97 Intake and Output 06/25/18 06/25/18 06/25/18 06:59 14:59 22:59 Other: Weight 97.522 kg General: [non toxic], [no distress], [appears at stated age] Derm: [warm], [dry] Head: [atraumatic], [normocephalic], [symmetric] Eyes: [EOMI], [no lid lag], [anicteric sclera] Mouth: [no lip lesion], [mucus membranes moist] Cardiovascular: [S1S2 reg], [tachycardia], [positive DP pulse bilateral] Lungs: [CTA bilateral], [no rhonchi, no rales] , [no accessory muscle use] Abdominal: [soft], [ nontender to palpation], [no guarding], [no appreciable organomegaly] Ext: [no gross muscle atrophy], [no edema], [no contractures] Neuro: [unable to examine due to her intoxicated state] Psych: [Alert], [oriented], [appropriate affect] Results CBC & Chem 7: 06/25/18 15:38 06/25/18 15:38 Labs: Abnormal Lab Results - Last 24 Hours (Table) 06/25/18 06/25/18 Range/Units 15:38 15:38 MCV 100.5 H (80.0-100.0) fL Sodium 148 H (137-145) mmol/L Chloride 112 H (98-107) mmol/L Glucose 100 H (74-99) mg/dL AST 198 H (17-59) U/L ALT 112 H (21-72) U/L Serum Alcohol 354 H* mg/dL Thrombosis Risk Factor Assmnt - Choose All That Apply Any of the Below Risk Factors Present?: No Other Risk Factors: No Thrombosis Risk Factor Assessment Level: Very Low Risk Assessment and Plan Assessment: Assessment and Plan 1. Alcohol intoxication 2. Suicidal ideations 3. Sciatica 4. Smoker 5. DVT/GI Prophylaxis 1. EtOH level 354 on admission. CIWA protocol. Ativan IV PRN for CIWA > 8. Continue Thiamine 100 mg PO BID. Telemetry monitoring. Keep K > 4 and Mg > 2. Fall and seizure precautions. 2. Suicidal precautions with 1:1 sitter pending Psychiatry evaluation. Patient is intoxicated and incapable of making decision on his own. 3. Pain management with Tylenol 650 mg PO Q6H PRN. 4. 1/2 PPD smoker. Nicotine patch 14 mg SUBCUT daily. 5. SCD boots only. Patient being treated for alcohol intoxication and suicidal ideation. 1-[address] Psychiatric evaluation pending.
[2018-06-25] MEDS: LORazepam 2 MG/ML INJ IV PRN (22:32)
[2018-06-25 23:54] LABS: Amphetamine Screen,Urine Not Detected (NotDetected); Barbiturate Screen,Urine Not Detected (NotDetected); Benzodiazepines Screen,Urine Detected (NotDetected); Cocaine Screen,Urine Not Detected (NotDetected); Methadone Screen, Urine Not Detected (NotDetected); Opiate Screen,Urine Detected (NotDetected); Oxycodone Screen, Urine Not Detected (NotDetected); Phencyclidine Screen,Urine Not Detected (NotDetected); Tricyclic Antidepressant,Urine Not Detected (NotDetected); Urn Cannabinoid Scrn Not Detected (NotDetected)
[2018-06-26 07:48] LABS: ALT 92 U/L (21-72); AST 130 U/L (17-59); Albumin 3.9 g/dL (3.5-5.0); Alkaline Phosphatase 73 U/L (38-126); Blood Urea Nitrogen 13 mg/dL (9-20); Carbon Dioxide 30 mmol/L (22-30); Glucose 115 mg/dL (74-99); Total Bilirubin 0.4 mg/dL (0.2-1.3); Total Protein 6.5 g/dL (6.3-8.2)
[2018-06-26 08:02] LABS: Anion Gap 5 mmol/L; Chloride 103 mmol/L (98-107); Potassium 4.5 mmol/L (3.5-5.1); Sodium 138 mmol/L (137-145)
[2018-06-26] MEDS: NICOTINE 14MG/24HR PATCH TRANSDERM SCH (09:28)
[2018-06-26 10:04] VITALS: BMI 26.9
[2018-06-26] MEDS: THIAMINE 100 MG TAB PO SCH ×2 (13:07→18:06)
[2018-06-26] MEDS: ACETAMINOPHEN TAB 325 MG TAB PO PRN ×2 (13:11→19:14)
--- NOTE | 2018-06-26 13:22 | P.CN ---
Psychiatric Consult - . Consult date: 06/26/18 Consult:: 06/26/18 09:37 32-year-old male with PMH of sciatica and alcohol abuse presents the ED for suicidal ideation. This history and physical is limited due to the intoxicated nature of the patient. Patient is unable to tell me the reason for his suicidal ideation or whether he has a plan to act out his thoughts. patient reports smoking one half packs of cigarettes daily. He also reports drinking 2 tall boys daily. He denies any illicit drug use. Patient reports chronic lower back pain. She states that this pain is related to sciatica. Pain occasionally radiates to the right lower extremity. Pain is 10 out of 10 in severity. Pain is usually alleviated with gabapentin and codeine. He denies any bladder or bowel incontinence, saddle anesthesia. Patient denies any headaches, lower extremity edema, nausea, vomiting, fever, chest pain, shortness of breath, cough, palpitations, changes in urination or bowel habits. In the ED, CBC showed a macrocytosis of 100.5. CMP showed a sodium of 148, chloride of 112, glucose of 100, AST of 198 and ALTs of 112. Serum alcohol level is 354. Patient is being admitted for alcohol intoxication, suicidal ideation, psychiatry is on board. Past Medical History Past Medical History: No Reported History Additional Past Medical History / Comment(s): chronic back pain, history of depression etoh abuse History of Any Multi-Drug Resistant Organisms: None Reported Past Surgical History: Orthopedic Surgery Additional Past Surgical History / Comment(s): right knee Past Anesthesia/Blood Transfusion Reactions: No Reported Reaction Past Psychological History: Anxiety, Depression Smoking Status: Current every day smoker Past Alcohol Use History: Abuse, Daily, Heavy Past Drug Use History: Cocaine, Marijuana - Past Family History Father History Unknown: Yes Additional Family Medical History / Comment(s): Unable to obtain family history secondary altered mentation Assessment and Plan Assessment: Medications and Allergies Home Medications Medication Instructions Recorded Confirmed Type No Known Home Medications 06/18/18 06/25/18 History Allergies Allergy/AdvReac Type Severity Reaction Status Date / Time No Known Allergies Allergy Verified 06/25/18 15:03 Past psychiatric history: We discharged him on 10/30/2017 with the diagnoses of bipolar 1 disorder most recent episode depressed, alcohol use disorder severe, cocaine use disorder mild to moderate and probable opiate use disorder mild to severe. His discharge medications include Seroquel 20 mg at bedtime, Seroquel 100 mg daily and Neurontin 60 mg by mouth 3 times a day. The psychiatrist discontinued his prescriptions for Suboxone, Narco and Motrin. He was referred to his primary care provider for follow-up care. The mental health social worker arranged for him to have a walk-in intake at [facility]. The patient did not follow through with this referral. Substance Use History: He has known history of alcohol use disorder. He drinks on a daily basis but was vague about the amount. He thinks that his drinking has been worse over an unspecified period of time prior to admission. He had one inpatient since his treatment at [facility] in 2017. He was abstinent from alcohol for 8 months after discharge from [facility]. The abstinence was supported by 5 months in a three-quarter house. He was vague about the amount and frequency of cocaine and marijuana use. He would not talk about a history of opiate use disorder although then mentioning that his primary care provider had prescribed him Suboxone in the past. Family Psychiatric/Substance Abuse History: His grandmother had history of bipolar disorder that included treatment with ECT. His father had mood symptoms. His mother had a depression. There is no history of suicide in his family. Social History: He is 1 sibship of 6. He quit high school in his deyanira year but obtained a GED. He is unable to explain the reason for leaving school; he talked about attending 5 different high schools because his family moved. 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 He is never . He has one child out of wedlock. He is unaware to the extent his arrears of child support. He has no history of service. He has no income and no residents of his [facility]. According to the [facility] court doctor he is had multiple charges for disorderly conduct, assault and battery, assault with a dangerous weapon, domestic violence and DUI's. He had felony charges for domestic violence third offense and 2 counts of assault with a dangerous weapon (felonious assault). Mental Status Examination - General Appearance: [disheveled, appears older than stated age Speech/Language: [ slow, monotone, expressive, soft Attitude/Behavior: [ guarded,withdrawn, indifferent] Mood: [ depressed, anxious, fearful, hopelessness Affect: [ flat, blunted constricted, other] Orientation: [At to time, person, place situation] Thought Content: [ delusions Risk Factors: [He has suicidal (ideation, plan), however he is not and/or Homicidal (ideations, plan), other] Perception: [wnl, denies (auditory, visual, tactile), other] Thought Processes: [ concrete, Concentration/Attention Span: [impaired] [Per observation and interview with the patient] Recent Memory: [ impaired] [1 out of 3 in 3 minutes] Remote Memory: [wnl, ] [past events, as related history] Intelligence: [below average] [based on history, based on vocabulary, syntax, grammar, and content] Judgement: [ poor] [per patient's behavior/history of present illness] Insight: [ poor] [understanding severity of illness/history of present illness] Psychiatric impression: Major depressive disorder severe and alcohol use disorder severe Psychiatric recommendations: Patient come to the psychiatric unit voluntarily when he is medically stable on [address] [facility] unit [facility]. Thank you for the consult Edgardo Desai D.O. PhD (1) Suicidal ideation Current Visit: Yes Status: Acute Priority: High Code(s): R45.851 - SUICIDAL IDEATIONS SNOMED Code(s): 4982116 (2) Major depressive disorder, recurrent severe without psychotic features Current Visit: Yes Status: Acute Priority: High Code(s): F33.2 - MAJOR DEPRESSV DISORDER, RECURRENT SEVERE W/O PSYCH FEATURES SNOMED Code(s): 64536262 Time with Patient: Less than 30
--- NOTE | 2018-06-26 13:29 | P.DS ---
Providers Date of admission: 06/25/18 17:23 Expected date of discharge: 06/26/18 Attending physician: Tiny Sarabia MD Consults: 06/25/18 17:23 Consult Physician Urgent Consulting Provider: Edgardo Desai Consult Reason/Comments: Suicidal ideations Do you want consulting provider notified?: Yes Primary care physician: Stated None Hospital Course: 32-year-old male with PMH of sciatica and alcohol abuse presents the ED for suicidal ideation. This history and physical is limited due to the intoxicated nature of the patient. Patient is unable to tell me the reason for his suicidal ideation or whether he has a plan to act out his thoughts. patient reports smoking one half packs of cigarettes daily. He also reports drinking 2 tall boys daily. He denies any illicit drug use. Patient reports chronic lower back pain. She states that this pain is related to sciatica. Pain occasionally radiates to the right lower extremity. Pain is 10 out of 10 in severity. Pain is usually alleviated with gabapentin and codeine. He denies any bladder or bowel incontinence, saddle anesthesia. Patient denies any headaches, lower extremity edema, nausea, vomiting, fever, chest pain, shortness of breath, cough, palpitations, changes in urination or bowel habits. In the ED, CBC showed a macrocytosis of 100.5. CMP showed a sodium of 148, chloride of 112, glucose of 100, AST of 198 and ALTs of 112. Serum alcohol level is 354. Patient is being admitted for alcohol intoxication, suicidal ideation, psychiatry is on board. Patient was placed on [facility] protocol for alcohol abuse. Patient was evaluated by Psychiatry, who accepted the patient for admission. Patient was seen and examined prior to discharge. Patient reports not mentally and physically feeling well. He complains of chronic lower back pain and pins and needles sensation in his fingers and toes. He denies any dysuria or changes in bowel habits. No nausea or vomiting. No chest pain, shortness of breath or palpitations. General: [non toxic], [no distress], [appears at stated age] Derm: [warm], [dry] Head: [atraumatic], [normocephalic], [symmetric] Eyes: [EOMI], [no lid lag], [anicteric sclera] Mouth: [no lip lesion], [mucus membranes moist] Cardiovascular: [S1S2 reg], [tachycardia], [positive DP pulse bilateral] Lungs: [CTA bilateral], [no rhonchi, no rales] , [no accessory muscle use] Abdominal: [soft], [ nontender to palpation], [no guarding], [no appreciable organomegaly] Ext: [no gross muscle atrophy], [no edema], [no contractures] Neuro: [unable to examine due to her intoxicated state] Psych: [Alert], [oriented], [appropriate affect] Assessment and Plan 1. Alcohol intoxication 2. Suicidal ideations 3. Sciatica 4. Smoker 5. DVT/GI Prophylaxis 1. EtOH level 354 on admission. CIWA protocol. Ativan IV PRN for CIWA > 8. Continue Thiamine 100 mg PO BID. Telemetry monitoring. Keep K > 4 and Mg > 2. Fall and seizure precautions. 2. Suicidal precautions with 1:1 sitter pending Psychiatry evaluation. Psychiatry evaluated the patient, accepted for inpatient. 3. Pain management with Tylenol 650 mg PO Q6H PRN. 4. 1/2 PPD smoker. Nicotine patch 14 mg SUBCUT daily. 5. SCD boots only. Patient has no signs of DTs. He is alert and oriented x 3 and does not appear to have tremors. He continues to states that he does not mentally feel well. His physical complaints are chronic or from hangover from EtOH binge. Patient is medically cleared for transfer to [facility]. Plan - Discharge Summary Discharge Rx Participant: Yes New Discharge Prescriptions: No Action No Known Home Medications Discharge Medication List No Known Home Medications 06/18/18 [History] Follow up Appointment(s)/Referral(s): None,Stated [Primary Care Provider] - 1-2 days
[2018-06-26] MEDS ORDERED: LORazepam 1 MG TAB PO PRN (13:31)
[2018-06-27] MEDS: LORazepam 2 MG/ML INJ IV PRN (00:07)
[2018-06-27 04:45] VITALS: BP 116/74; PULSE 68; RESP 18; TEMP 98
[2018-06-27] MEDS: NICOTINE 14MG/24HR PATCH TRANSDERM SCH (09:42)
[2018-06-27] MEDS: ACETAMINOPHEN TAB 325 MG TAB PO PRN (10:13)
--- NOTE | 2018-06-27 13:54 | P.PN ---
Subjective Progress Note Date: 06/27/18 Principal diagnosis: Alcohol withdrawal, suicidal ideation Patient was seen and examined. No acute events overnight. Patient continues to complain of numbness and tingling in all 4 extremities, worse at the fingertips. He also complains of lower back pain with radiation into the right lower extremity. Pain has been ongoing for 10 years. He denies any nausea, vomiting, abdominal pain, chest pain, shortness breath or palpitations. Objective - Vital Signs Vital signs: Vital Signs Temp 98 F 06/27/18 04:44 Pulse 68 06/27/18 04:44 Resp 18 06/27/18 04:44 BP 116/74 06/27/18 04:44 Pulse Ox 98 06/27/18 04:44 Intake & Output 06/26/18 06/27/18 06/27/18 18:59 06:59 18:59 Intake Total 600 1050 Balance 600 1050 Weight 97.522 kg Intake: Intake, IV Titration 600 Amount Sodium Chloride 0.9% 1, 600 000 ml @ 75 mls/hr IV . [id number] ONE Rx#:[id number] Oral 1050 Other: Voiding Method Urinal Urinal Toilet # Voids 1 - Exam General: [non toxic], [no distress], [appears at stated age] Derm: [warm], [dry] Head: [atraumatic], [normocephalic], [symmetric] Eyes: [EOMI], [no lid lag], [anicteric sclera] Mouth: [no lip lesion], [mucus membranes moist] Cardiovascular: [S1S2 reg], [no murmur], [positive DP pulse bilateral] Lungs: [CTA bilateral], [no rhonchi, no rales] , [no accessory muscle use] Abdominal: [soft], [ nontender to palpation], [no guarding], [no appreciable organomegaly] Ext: [no gross muscle atrophy], [no edema], [no contractures] Psych: [Alert], [oriented], [appropriate affect] - Labs CBC & Chem 7: 06/25/18 15:38 06/26/18 07:26 Assessment and Plan Assessment: Assessment and Plan 1. Alcohol intoxication 2. Suicidal ideations 3. Sciatica 4. Smoker 5. DVT/GI Prophylaxis 1. EtOH level 354 on admission. CIWA protocol. Ativan IV PRN for CIWA > 8. Continue Thiamine 100 mg PO BID. Telemetry monitoring. Keep K > 4 and Mg > 2. Fall and seizure precautions. 2. Suicidal precautions with 1:1 sitter pending Psychiatry evaluation. Psychiatry evaluated the patient, accepted for inpatient. 3. Pain management with Tylenol 650 mg PO Q6H PRN. 4. 1/2 PPD smoker. Nicotine patch 14 mg SUBCUT daily. 5. SCD boots only. Patient has no signs of DTs. He is alert and oriented x 3 and does not appear to have tremors. He continues to states that he does not mentally feel well. Patient is medically cleared for transfer to [facility].
== END 2018-06-27 10:25 ==
LOC: EC 14:52 → 3NMEDONC 17:23
PROVIDERS: ADMIT Family Medicine; ATTEND Family Medicine
DX: F10.129 Alcohol abuse with intoxication, unspecified (principal); R45.851 Suicidal ideations; F33.2 Major depressive disorder, recurrent severe without psychotic features; F17.210 Nicotine dependence, cigarettes, uncomplicated; G89.29 Other chronic pain; M54.40 Lumbago with sciatica, unspecified side; Y90.8 Blood alcohol level of 240 mg/100 ml or more; F41.9 Anxiety disorder, unspecified; D75.89 Other specified diseases of blood and blood-forming organs; Z81.8 Family history of other mental and behavioral disorders
CPT/HCPCS: 96376; 96366 ×2; 96375; 96365; 96372; 99285; 36415; 80053 ×2; 85027; 80306; G0378 ×3; G0480; S4990 ×2; J2060 ×3; J3411; 80320

== ENCOUNTER 2018-06-27 09:45 | Inpatient (IN) | payer MEDICAID, OTHER ==
[2018-06-27] MEDS ORDERED: MAG HYDROX/AL HYDROX/SIMETH 30 ML CUP PO PRN (10:47)
[2018-06-27] MEDS ORDERED: MAGNESIUM HYDROXIDE 2,400 MG/10 ML CUP PO PRN (10:47)
[2018-06-27] MEDS ORDERED: ACETAMINOPHEN TAB 325 MG TAB PO PRN (10:47)
[2018-06-27] MEDS ORDERED: LORazepam 1 MG TAB PO PRN (10:56)
[2018-06-27] MEDS ORDERED: INFLUENZA VACCINE (6 MOS+) 60 MCG/0.5 ML SYRINGE IM ONE (11:43)
--- NOTE | 2018-06-27 12:01 | P.HP ---
Psychiatric H&P - . History & Physical: Allergies Allergy/AdvReac Type Severity Reaction Status Date / Time No Known Allergies Allergy Verified 06/25/18 15:03 Vital Signs Temp 97.0 F L 06/27/18 11:16 Pulse 80 06/27/18 11:16 Resp 16 06/27/18 11:16 BP 129/75 06/27/18 11:16 Pulse Ox 98 06/27/18 11:16 Intake & Output 06/26/18 06/27/18 06/27/18 18:59 06:59 18:59 Weight 100.2 kg 06/27/18 11:52 IDENTIFYING DATA: This patient is a 32-year-old male who was admitted to the mental health unit from the medical floor with acute suicidal ideation. HPI: The patient was admitted to the mental health unit for acute suicidal ideation. He originally presented to the hospital intoxicated with alcohol with a level of 354. He was admitted to the medical unit and was seen by Dr. Desai in psychiatric consultation. The patient states that he has lost his ID and he has not followed up with his primary care physician or [facility]. He continues to excessively use alcohol. The patient is well known to the service as he has had numerous admissions on this mental health unit. He was last on this unit in October 2017. His diagnoses have differed from depression unspecified to bipolar disorder 2 major depressive disorder. He is consistently known to have an alcohol use disorder cocaine use disorder possible opiate use disorder. He reports suicidal thoughts with no homicidal ideation. He is endorsing no auditory or visual hallucinations or specific delusions. It's difficult to discern if he has any history of hypomanic or manic episodes at this time based on the history he provides. PAST PSYCHIATRIC HISTORY: Numerous inpatient psychiatric admissions the last was in October 2017. He has been treated with Zoloft and Seroquel several times in the past as well as Neurontin. He states with his last hospitalization in [facility] he was placed on Paxil and he feels that medication was better than Zoloft. He indicates having 1 suicide attempt in 2017 via overdose of medication with alcohol. He has had poor follow-up with [facility] he states because he has no ID. PMH: Chronic back pain he states is from sciatica ALLERGIES: NO KNOWN DRUG ALLERGIES MEDICATIONS: Refer to [facility] CHEMICAL DEPENDENCY HISTORY: Ongoing alcohol use disorder he states he will have 2, 22 ounce beers a day and will also drink liquor. This has been an ongoing issue for him for years. He has been in rehab once back in 2017 at [place]. He has a history of using opiates and cocaine. FAMILY PSYCHIATRIC HISTORY: Grandmother known to have history of bipolar disorder treated with ECT, father had mood symptoms, mother known to have mood symptoms, no suicides in his family FAMILY CHEMICAL DEPENDENCY HISTORY: Unknown SOCIAL HISTORY: The patient is 32 years old he single he has 5 siblings, he stopped school in 11th grade but later obtained a GED. 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 He has 1 child. No history of service. He has no income and identifies himself as being homeless. He has numerous charges in the past including disorderly conduct, assault and battery, assault with dangerous weapon, domestic violence, and 2 DUIs. He has been incarcerated in the past his longest incarceration was for 47 days in [facility]. Abuse history unknown. MENTAL STATUS EXAM: The patient is a male appearing his stated age she is dressed in [facility] gowns hygiene grooming adequate. He endorses a depressed mood with suicidal ideation. He reports no homicidal ideation. He describes no auditory or visual hallucinations or any specific delusions. There is no observed evidence of psychosis. Speech is fluent spontaneous nonpressured. Affect is bland. He demonstrates some circumstantial thinking he is mildly tangential at times but easily directed. No flight of ideas or loose associations observed. He does appear distractible at this time and has some increased psychomotor activity while seated but he demonstrates no verbal or physical aggressiveness. He is oriented to person place and date. He is able to name the days of the week backwards. STRENGTHS/WEAKNESSES: Strengths: Willingness to receive voluntary treatment, weaknesses: Noncompliance with outpatient care and substance use INTELLECTUAL FUNCTIONING: Likely below average IMPRESSIONS: [] 1. Depression unspecified, rule out major depressive disorder versus bipolar depression, alcohol use disorder, history of cocaine use disorder, rule out opiate use disorder 2. Chronic back pain 3. Cluster B traits including antisocial PLAN: The patient has been admitted to the mental health unit voluntarily. We reviewed his presenting symptoms and treatment options. We decided to reinitiate Paxil 20 mg at bedtime Seroquel 100 mg at bedtime around 300 mg 3 times daily. He has been seen by internal medicine for routine history and physical exam. Social work will meet with the patient to complete a psychosocial assessment. We will monitor him for safety he is encouraged to participate in group. He is encouraged to consider inpatient chemical dependency treatment.
[2018-06-27] MEDS: THIAMINE 100 MG TAB PO SCH ×2 (12:42→16:43)
[2018-06-27] MEDS: GABAPENTIN 300 MG CAP PO SCH ×3 (12:42→20:56)
[2018-06-27] MEDS: NICOTINE POLACRILEX 2 MG GUM BUCCAL PRN ×2 (12:43→20:57)
--- NOTE | 2018-06-27 14:06 | P.MDCNMH ---
History of Present Illness H&P Date: 06/27/18 Chief Complaint: Back pain, medical management 32-year-old male with PMH of sciatica and alcohol abuse presents the ED for suicidal ideation. Patient is unable to tell me the reason for his suicidal ideation or whether he has a plan to act out his thoughts. Patient reports smoking one half packs of cigarettes daily. He also reports drinking 2 tall boys daily. He denies any illicit drug use. Patient reports chronic lower back pain. She states that this pain is related to sciatica. Pain occasionally radiates to the right lower extremity. Pain is as low as 5 and as high as 10 out of 10 in severity. Pain is usually alleviated with gabapentin and codeine. Patient states he is been drinking in order to treat his pain. Patient reports right knee pain that has been ongoing over the years since 2011. He denies any bladder or bowel incontinence, saddle anesthesia. Patient denies any headaches, lower extremity edema, nausea, vomiting, fever, chest pain, shortness of breath, cough, palpitations, changes in urination or bowel habits. Patient is being admitted for alcohol intoxication, suicidal ideation, psychiatry is on board. Review of Systems All systems: negative Past Medical History Past Medical History: No Reported History Additional Past Medical History / Comment(s): chronic back pain, history of depression etoh abuse History of Any Multi-Drug Resistant Organisms: None Reported Past Surgical History: Orthopedic Surgery Additional Past Surgical History / Comment(s): right knee Past Anesthesia/Blood Transfusion Reactions: No Reported Reaction Smoking Status: Current every day smoker - Past Family History Father History Unknown: Yes Family Medical History: CVA/TIA Additional Family Medical History / Comment(s): Unable to obtain family history secondary altered mentation Medications and Allergies Home Medications Medication Instructions Recorded Confirmed Type No Known Home Medications 06/18/18 06/27/18 History Allergies Allergy/AdvReac Type Severity Reaction Status Date / Time No Known Allergies Allergy Verified 06/25/18 15:03 Physical Exam Vitals: Vital Signs Temp Pulse Resp BP Pulse Ox 06/27/18 11:16 97.0 F L 80 16 129/75 98 Intake and Output 06/26/18 06/27/18 06/27/18 22:59 06:59 14:59 Other: Weight 100.2 kg General: [non toxic], [no distress], [appears at stated age] Derm: [warm], [dry] Head: [atraumatic], [normocephalic], [symmetric] Eyes: [EOMI], [no lid lag], [anicteric sclera] Mouth: [no lip lesion], [mucus membranes moist] Cardiovascular: [S1S2 reg], [no murmur], [positive DP pulse bilateral] Lungs: [CTA bilateral], [no rhonchi, no rales] , [no accessory muscle use] Abdominal: [soft], [ nontender to palpation], [no guarding], [no appreciable organomegaly] Ext: [no gross muscle atrophy], [no edema], [no contractures], [paraspinal tenderness bilaterally] Neuro: [no focal neuro deficits], [CN 2 to 12 grossly intact] Psych: [Alert], [oriented], [appropriate affect] Cranial Nerve Examination - Cranial Nerves Cranial Nerve II- Optic: Intact Cranial Nerve III- Oculomotor: Intact Cranial Nerve IV- Trochlear: Intact Cranial Nerve V- Trigeminal: Intact Cranial Nerve - Abducens: Intact Cranial Nerve VII- Facial: Intact Cranial Nerve VIII- Auditory: Intact Cranial Nerve IX- Glossopharyngeal: Intact Cranial Nerve X- Vagus: Intact Cranial Nerve XI- Accessory: Intact Cranial Nerve XII- Hypoglossal: Intact Assessment and Plan Assessment: Assessment and Plan 1. Alcohol abuse 2. Suicidal ideations 3. Sciatica 4. Smoker 5. DVT/GI Prophylaxis 1. EtOH level 354 on previous admission. [facility] protocol. Ativan 1 mg PO TID for agitation. Continue Thiamine 100 mg PO BID. 2. Management as per Psyc 3. Pain management with Tylenol 650 mg PO Q6H PRN, Gabapentin 300 mg PO TID. 4. 1/2 PPD smoker. Nicotine patch 14 mg SUBCUT daily. 5. SCD boots only. Thank you for the consult. Please call if you have any additional questions or concerns.
[2018-06-27] MEDS: PARoxetine 20 MG TAB PO SCH (20:56)
[2018-06-27] MEDS: QUEtiapine 100 MG TAB PO SCH (20:56)
[2018-06-28] MEDS: GABAPENTIN 300 MG CAP PO SCH ×3 (08:39→21:00)
[2018-06-28] MEDS: NICOTINE 14MG/24HR PATCH TRANSDERM SCH (08:40)
[2018-06-28] MEDS: NICOTINE POLACRILEX 2 MG GUM BUCCAL PRN ×2 (08:40→21:01)
[2018-06-28] MEDS: THIAMINE 100 MG TAB PO SCH ×2 (08:40→16:30)
[2018-06-28] MEDS ORDERED: NICOTINE 14MG/24HR PATCH TRANSDERM SCH (09:00)
--- NOTE | 2018-06-28 13:27 | P.PN ---
Progress Note - Text Progress Note Date: 06/28/18 Interval history: IDENTIFYING DATA: This patient is a 32-year-old male who was admitted to the mental health unit from the medical floor with acute suicidal ideation. HPI: The patient was admitted to the mental health unit for acute suicidal ideation. He originally presented to the hospital intoxicated with alcohol with a level of 354. He was admitted to the medical unit and was seen by Dr. Desai in psychiatric consultation. The patient states that he has lost his ID and he has not followed up with his primary care physician or [facility]. He continues to excessively use alcohol. The patient is well known to the service as he has had numerous admissions on this mental health unit. He was last on this unit in October 2017. His diagnoses have differed from depression unspecified to bipolar disorder 2 major depressive disorder. He is consistently known to have an alcohol use disorder cocaine use disorder possible opiate use disorder. He reports suicidal thoughts with no homicidal ideation. He is endorsing no auditory or visual hallucinations or specific delusions. It's difficult to discern if he has any history of hypomanic or manic episodes at this time based on the history he provides. MENTAL STATUS EXAM: The patient is a male appearing his stated age she is dressed casually. He endorses a depressed mood with suicidal ideation. He reports no homicidal ideation. He describes no auditory or visual hallucinations or any specific delusions. There is no observed evidence of psychosis. Speech is fluent spontaneous nonpressured. Affect is bland. He demonstrates some circumstantial thinking he is mildly tangential at times but easily directed. No flight of ideas or loose associations observed. He does appear distractible at this time and has some increased psychomotor activity while seated but he demonstrates no verbal or physical aggressiveness. He is oriented to person place and date. He is able to name the days of the week backwards. IMPRESSIONS: [] 1. Depression unspecified, rule out major depressive disorder versus bipolar depression, alcohol use disorder, history of cocaine use disorder, rule out opiate use disorder 2. Chronic back pain 3. Cluster B traits including antisocial PLAN: The patient has been admitted to the mental health unit voluntarily. We reviewed his presenting symptoms and treatment options. We decided to reinitiate Paxil 20 mg at bedtime Seroquel 100 mg at bedtime around 300 mg 3 times daily. He has been seen by internal medicine for routine history and physical exam. Social work will meet with the patient to complete a psychosocial assessment. We will monitor him for safety he is encouraged to participate in group. He is encouraged to consider inpatient chemical dependency treatment. Will continue medication as outlined above and will follow and observe
[2018-06-28] MEDS: PARoxetine 20 MG TAB PO SCH (21:00)
[2018-06-28] MEDS: QUEtiapine 100 MG TAB PO SCH (21:00)
[2018-06-29] MEDS: GABAPENTIN 300 MG CAP PO SCH ×3 (08:35→20:18)
[2018-06-29] MEDS: NICOTINE 14MG/24HR PATCH TRANSDERM SCH (08:35)
[2018-06-29] MEDS: NICOTINE POLACRILEX 2 MG GUM BUCCAL PRN ×3 (08:36→18:54)
--- NOTE | 2018-06-29 13:01 | P.PN ---
Progress Note - Text Progress Note Date: 06/29/18 Patient interviewed and library today and was less depressed, less anxious and some difficulty with sleep. He was able to go to groups this morning and interact with peers and staff in a positive way. He denies suicidal or homicidal ideation. MENTAL STATUS EXAM: The patient is a male appearing his stated age he is dressed casually. He endorses a depressed mood 6 out of 10 with less suicidal ideation. He reports no homicidal ideation. He describes no auditory or visual hallucinations or any specific delusions. There is no observed evidence of psychosis. Speech is fluent spontaneous nonpressured. Affect is reactive. He demonstrates some circumstantial thinking he is mildly tangential at times but easily directed. No flight of ideas or loose associations observed. He does appear distractible at this time and has some increased psychomotor activity while seated but he demonstrates no verbal or physical aggressiveness. He is oriented to person place and date. He is able to name the days of the week backwards. IMPRESSIONS: [] 1. Depression unspecified, rule out major depressive disorder versus bipolar depression, alcohol use disorder, history of cocaine use disorder, rule out opiate use disorder 2. Chronic back pain 3. Cluster B traits including antisocial PLAN: The patient has been admitted to the mental health unit voluntarily. We reviewed his presenting symptoms and treatment options. We decided to reinitiate Paxil 20 mg at bedtime Seroquel 100 mg at bedtime around 300 mg 3 times daily. He has been seen by internal medicine for routine history and physical exam. Social work will meet with the patient to complete a psychosocial assessment. We will monitor him for safety he is encouraged to participate in group. He is encouraged to consider inpatient chemical dependency treatment. Will continue medication as outlined above and will follow and observe
[2018-06-29] MEDS: THIAMINE 100 MG TAB PO SCH ×2 (13:22→16:22)
[2018-06-29] MEDS: PARoxetine 20 MG TAB PO SCH (20:18)
[2018-06-29] MEDS: QUEtiapine 100 MG TAB PO SCH (20:18)
[2018-06-29 20:32] LABS: Appearance,Urine Clear (Clear); Bilirubin,Urine Negative (Negative); Blood,Urine Negative (Negative); Color,Urine Yellow; Glucose,Urine (UA) Negative (Negative); Ketones,Urine Negative (Negative); Leukocyte Esterase,Urine Negative (Negative); Nitrite,Urine Negative (Negative); PH, Urine 6.5 (5.0-8.0); Protein,Urine Negative (Negative); Urobilinogen,Urine <2.0 mg/dL (<2.0)
[2018-06-30] MEDS: NICOTINE 14MG/24HR PATCH TRANSDERM SCH (08:10)
[2018-06-30] MEDS: GABAPENTIN 300 MG CAP PO SCH ×3 (08:11→21:29)
[2018-06-30] MEDS: NICOTINE POLACRILEX 2 MG GUM BUCCAL PRN ×3 (08:38→21:31)
--- NOTE | 2018-06-30 11:14 | P.PN ---
Progress Note - Text Interval history: The patient is found in his room. He reports that he attended the goal setting group this morning. He indicates he is sleeping at night he has no questions or concerns regarding his psychotropic medication. He states that he does not have identification which is not allowing him to obtain employment and possibly go to rehab. He does not appear to be motivated for rehab at this time however. He reports improvement of his mood. We discussed discharge planning topics. Mental status exam: The patient is alert he is dressed in his own clothing. Eye contact is appropriate speech is fluent spontaneous nonpressured. He is cooperative and directable. He is reporting no acute suicidal or homicidal ideation intent or plan. He reports no auditory or visual hallucinations or any specific delusions. He demonstrates no observable evidence of psychosis. He demonstrates no flight of ideas loose associations or tangential thinking he does not appear hypomanic or manic. Insight and judgment improving. He demonstrates no verbal or physical aggressiveness he demonstrates no involuntary repetitive movements. Plan: The patient will continue on his current psychotropic medication. It's likely the patient will require retirement placement upon discharge. He will again be given information in terms of how to get his identification card reestablished. We will monitor him for safety. I expect he'll be appropriate for discharge sometime this week. He is encouraged to fully comply with groups. Recent CIWA scores have been 0.
[2018-06-30] MEDS: THIAMINE 100 MG TAB PO SCH ×2 (14:02→15:29)
[2018-06-30] MEDS: PARoxetine 20 MG TAB PO SCH (21:29)
[2018-06-30] MEDS: QUEtiapine 100 MG TAB PO SCH (21:29)
[2018-07-01 06:34] VITALS: BP 103/60; PULSE 61; RESP 18; TEMP 97.5
[2018-07-01] MEDS: GABAPENTIN 300 MG CAP PO SCH (08:22)
[2018-07-01] MEDS: NICOTINE 14MG/24HR PATCH TRANSDERM SCH (08:22)
[2018-07-01] MEDS: NICOTINE POLACRILEX 2 MG GUM BUCCAL PRN (09:03)
--- NOTE | 2018-07-01 11:48 | P.DS ---
Providers Date of admission: 06/27/18 10:25 Expected date of discharge: 07/01/18 Attending physician: Petr Crouch Consults: 06/27/18 10:47 Consult Physician Routine Consulting Provider: Kelly Sawant Consult Reason/Comments: H & P medical managment Do you want consulting provider notified?: Yes Primary care physician: Stated None - Discharge Diagnosis(es) (1) Major depressive disorder, recurrent severe without psychotic features Current Visit: No Status: Acute Priority: High (2) Alcohol use disorder Current Visit: Yes Status: Acute Priority: High (3) Cocaine use disorder Current Visit: Yes Status: Acute Priority: Medium Hospital Course: Brief summary of admission note: This patient is a 32-year-old male who was admitted to the mental health unit for acute suicidal ideation. The patient originally presented the hospital intoxicated with alcohol with a level of 354. He was seen by Dr. Desai in psychiatric consultation and he was transferred to the mental health unit subsequently. The patient is well-known to this mental health unit. He stated that he had gone off of medication and was drinking alcohol excessively. For full details please refer to my psychiatric evaluation dated 06/27/2018. Summary of hospital course: The patient was admitted to the mental health unit voluntarily. We reviewed his presenting symptoms and treatment options. We reinitiate his Neurontin he was restarted on Paxil and Seroquel. We monitored for alcohol withdrawal symptoms. The patient was seen by internal medicine for routine history and physical exam. The patient selectively attended groups. Social work met with the patient to complete a psychosocial assessment and met with him for discharge planning purposes as well. During the course of his stay he reported his suicidal ideation resolved. We discussed the possibility of attending inpatient chemical dependency treatment but he declined. He states that he is able to stay with a friend but is also aware that halfway placement is available. He has no identification at this time and again social work has helped him with information as to how to obtain an identification card again. The patient demonstrated no agitated behavior. Mental status exam: The patient is alert he is dressed in his own clothing hygiene grooming are good. Eye contact is appropriate speech is fluent and spontaneous nonpressured. He reports no suicidal ideation intent or plan no homicidal ideation intent or plan. He is reporting no auditory or visual hallucinations or any specific delusions. There is no observed evidence of psychosis. He demonstrates no tangential thinking loose associations or flight of ideas. He does not appear hypomanic or manic. He demonstrates no verbal or physical aggressiveness. He demonstrates no involuntary repetitive movements. He is oriented to person place and date. Insight and judgment grossly intact. Affect is appropriately expressive. Impressions 1. Major depressive disorder recurrent severe without psychosis rule out bipolar depression, alcohol use disorder, cocaine use disorder, rule out opiate use disorder 2. Chronic back pain 3. Cluster B traits including antisocial Plan: The patient will be discharged from the mental health unit today. He will stay with a friend versus halfway placement. After further discussion today he states that he remembers Cymbalta was better for symptoms of depression and it did help with some of his chronic pain. We decided to restart him on Cymbalta starting tomorrow and have him transition off of Paxil. He will continue on Seroquel 100 mg at bedtime Neurontin 300 mg 3 times a day. He does not wish to participate in inpatient chemical dependency treatment or be prescribe medicine to reduce alcohol cravings. He is willing to work with an individual therapist. We discussed the importance of him abstaining from alcohol marijuana or any other substance as those substances we' ll likely provoke serious mood symptoms and elevate his safety risk. He is no longer at any imminent safety risk he is appropriate for transition to outpatient care he is instructed to return to the hospital with any acute safety concerns. Patient Condition at Discharge: Stable Plan - Discharge Summary Discharge Rx Participant: No New Discharge Prescriptions: New DULoxetine HCL [Cymbalta] 60 mg PO DAILY #30 capsule. Gabapentin [Neurontin] 300 mg PO TID #45 cap Nicotine Polacrilex [Nicorette] 2 mg BUCCAL Q2HR PRN #30 gum PRN Reason: Nicotine Cravings QUEtiapine [SEROquel] 100 mg PO HS #30 tab Discharge Medication List DULoxetine HCL [Cymbalta] 60 mg PO DAILY #30 capsule. 07/01/18 [Rx] Gabapentin [Neurontin] 300 mg PO TID #45 cap 07/01/18 [Rx] Nicotine Polacrilex [Nicorette] 2 mg BUCCAL Q2HR PRN #30 gum 07/01/18 [Rx] QUEtiapine [SEROquel] 100 mg PO HS #30 tab 07/01/18 [Rx] Follow up Appointment(s)/Referral(s): [facility] [NON-STAFF] - 1 Week Patient Instructions/Handouts: How to Stop Smoking (GEN) Activity/Diet/Wound Care/Special Instructions: Keep your follow up appointments as scheduled. Take your medications as prescribed. No alcohol or street drugs. No access to guns or weapons. Crisis line phone number if needed.
[2018-07-01] MEDS: THIAMINE 100 MG TAB PO SCH (12:56)
[2018-07-02] MEDS ORDERED: DULoxetine HCL 60 MG CAPSULE.DR PO SCH (09:00)
== END 2018-07-01 13:55 | disposition home or self-care (01) | DRG 885 ==
LOC: 3MHU 10:25
PROVIDERS: ADMIT Psychiatry & Neurology Psychiatry; ATTEND Psychiatry & Neurology Psychiatry
DX: F33.2 Major depressive disorder, recurrent severe without psychotic features (principal); R45.851 Suicidal ideations; F14.10 Cocaine abuse, uncomplicated; F10.129 Alcohol abuse with intoxication, unspecified; Z23 Encounter for immunization; G89.29 Other chronic pain; M54.9 Dorsalgia, unspecified; F60.89 Other specific personality disorders; M54.30 Sciatica, unspecified side; F17.210 Nicotine dependence, cigarettes, uncomplicated; Z71.6 Tobacco abuse counseling; Z91.5 Personal history of self-harm
CPT/HCPCS: 81003; 90686

== ENCOUNTER 2018-08-17 21:13 | Observation (INO) | payer OTHER ==
[2018-08-17] MEDS ORDERED: DIPH,PERTUS(ACELL)TETVAC-LF 0.5 ML VIAL IM ONE (21:25)
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
[2018-08-17 21:48] LABS: Basophils # (A) 0.1 k/uL (0-0.2); Basophils % (A) 1 %; Eosinophils # (A) 0.2 k/uL (0-0.7); Eosinophils % (A) 1 %; HCT 49.9 % (39.0-53.0); HGB 17.2 gm/dL (13.0-17.5); Lymphocytes # (A) 3.5 k/uL (1.0-4.8); Lymphocytes % (A) 22 %; MCH 32.8 pg (25.0-35.0); MCHC 34.5 g/dL (31.0-37.0); Mean Platelet Volume 7.1; Monocytes # (A) 0.7 k/uL (0-1.0); Monocytes % (A) 4 %; Neutrophils # (A) 11.4 k/uL (1.3-7.7); Neutrophils % (A) 70 %; Platelet Count 288 k/uL (150-450); RBC 5.26 m/uL (4.30-5.90); RDW 12.4 % (11.5-15.5); WBC 16.3 k/uL (3.8-10.6)
[2018-08-17 21:59] LABS: MCV 94.8 fL (80.0-100.0)
[2018-08-17 22:00] LABS: ALT 134 U/L (21-72); AST 68 U/L (17-59); Albumin 5.1 g/dL (3.5-5.0); Alkaline Phosphatase 91 U/L (38-126); Anion Gap 16 mmol/L; Blood Urea Nitrogen 15 mg/dL (9-20); Calcium 9.4 mg/dL (8.4-10.2); Carbon Dioxide 24 mmol/L (22-30); Chloride 101 mmol/L (98-107); Glucose 87 mg/dL (74-99); Potassium 4.4 mmol/L (3.5-5.1); Sodium 141 mmol/L (137-145); Total Bilirubin 1.1 mg/dL (0.2-1.3); Total Protein 8.2 g/dL (6.3-8.2)
[2018-08-17 22:02] LABS: Glucose,Whole Blood 92 mg/dL (75-99)
[2018-08-17 22:04] LABS: Alcohol 258 mg/dL
[2018-08-17 22:07] LABS: INR 0.9 (<1.2); Partial Thromboplastin Time 21.9 sec (22.0-30.0); Prothrombin Time 9.8 sec (9.0-12.0)
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
[2018-08-18] MEDS ORDERED: ACETAMINOPHEN TAB 325 MG TAB PO PRN (01:32)
[2018-08-18] MEDS ORDERED: NALOXONE 0.4 MG/ML 1 ML VIAL IV PRN (01:32)
[2018-08-18] MEDS ORDERED: SODIUM CHLORIDE 0.9% 1,000 ML IV SCH (01:45)
[2018-08-18] MEDS ORDERED: LORazepam 2 MG/ML INJ IV PRN ×2 (02:27)
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
[2018-08-18 03:19] LABS: Appearance,Urine Clear (Clear); Bilirubin,Urine Negative (Negative); Blood,Urine Negative (Negative); Color,Urine Yellow; Glucose,Urine (UA) Negative (Negative); Ketones,Urine 1+ (Negative); Leukocyte Esterase,Urine Negative (Negative); Mucus,Urine Rare /hpf; Nitrite,Urine Negative (Negative); Protein,Urine 1+ (Negative); Specific Gravity,Urine 1.025 (1.001-1.035); Urobilinogen,Urine <2.0 mg/dL (<2.0); WBC,Urine 1 /hpf (0-5)
[2018-08-18 03:27] LABS: Amphetamine Screen,Urine Detected (NotDetected); Barbiturate Screen,Urine Not Detected (NotDetected); Benzodiazepines Screen,Urine Not Detected (NotDetected); Cocaine Screen,Urine Not Detected (NotDetected); Methadone Screen, Urine Not Detected (NotDetected); Opiate Screen,Urine Not Detected (NotDetected); Oxycodone Screen, Urine Not Detected (NotDetected); Phencyclidine Screen,Urine Not Detected (NotDetected); Tricyclic Antidepressant,Urine Not Detected (NotDetected); Urn Cannabinoid Scrn Not Detected (NotDetected)
[2018-08-18] MEDS ORDERED: THIAMINE 100 MG/ML 2 ML VIAL IM ONE (03:30)
[2018-08-18] MEDS: LORazepam 2 MG/ML INJ IV PRN ×3 (05:11→17:46)
[2018-08-18] MEDS: SODIUM CHLORIDE 0.9% 1,000 ML IV SCH ×3 (06:15→17:41)
[2018-08-18] MEDS: MULTIVITAMINS, THERA 1 EACH TAB PO SCH (07:30)
[2018-08-18 08:55] LABS: HCT 46.6 % (39.0-53.0); HGB 15.8 gm/dL (13.0-17.5); MCH 32.5 pg (25.0-35.0); MCHC 33.9 g/dL (31.0-37.0); MCV 95.9 fL (80.0-100.0); Mean Platelet Volume 6.4; Platelet Count 268 k/uL (150-450); RBC 4.86 m/uL (4.30-5.90); RDW 12.5 % (11.5-15.5); WBC 10.3 k/uL (3.8-10.6)
[2018-08-18 09:16] LABS: ALT 116 U/L (21-72); AST 57 U/L (17-59); Albumin 4.5 g/dL (3.5-5.0); Alkaline Phosphatase 76 U/L (38-126); Anion Gap 14 mmol/L; Blood Urea Nitrogen 18 mg/dL (9-20); Calcium 9.3 mg/dL (8.4-10.2); Carbon Dioxide 23 mmol/L (22-30); Chloride 101 mmol/L (98-107); Glucose 83 mg/dL (74-99); Potassium 4.5 mmol/L (3.5-5.1); Sodium 138 mmol/L (137-145); Total Bilirubin 1.8 mg/dL (0.2-1.3); Total Protein 7.2 g/dL (6.3-8.2)
--- NOTE | 2018-08-18 11:13 | P.PN ---
Progress Note - Text Progress Note Date: 08/18/18 Hospitalist Interval Note Patient seen and examined at bedside. He complains of feeling anxious, sweaty, and tremelous, no significant abdominal pain at this time. Vital signs reviewed General: non toxic, no distress, appears at stated age Derm: warm, dry Head: atraumatic, normocephalic, symmetric Eyes: EOMI, no lid lag, anicteric sclera Mouth: no lip lesion, mucus membranes moist Cardiovascular: S1S2 reg, no murmur, positive posterior tibial pulse bilateral, Lungs: CTA bilateral, no rhonchi, no rales , no accessory muscle use Abdominal: soft, nontender to palpation, no guarding, no appreciable organomegaly Ext: no gross muscle atrophy, no edema, no contractures Neuro: CN II-XI grossly intact, no focal neuro deficits Psych: Alert, oriented, appropriate affect Assessment/Plan: Alcohol withdrawal - CIWA - thiamine, folic acid - IVF - Tele - Social work consult Abdomianl wound - CT negative for significant damage - no signs of obvious infection - Await surgical recs Tachycardia - CT without PNA - check UA with ABD pain, fever and tachycardia Acute alcoholic hepatitis - improving - follow LFTs - patient wants to quite drinking at discharge - no indication for steroids. This is an update note for patient , for full note on 08/18/18 see H and P. There is no charge associated with this note.
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
[2018-08-18] MEDS: DULoxetine HCL 60 MG CAPSULE.DR PO SCH (13:32)
[2018-08-18] MEDS: GABAPENTIN 300 MG CAP PO SCH ×3 (13:32→21:35)
[2018-08-18] MEDS: THIAMINE 100 MG TAB PO SCH (17:46)
[2018-08-18] MEDS ORDERED: QUEtiapine 100 MG TAB PO SCH (21:00)
[2018-08-18] MEDS ORDERED: BENZONATATE 100 MG CAP PO PRN (22:23)
[2018-08-19] MEDS: SODIUM CHLORIDE 0.9% 1,000 ML IV SCH ×3 (05:52→11:26)
[2018-08-19 08:21] VITALS: BP 115/69; PULSE 84; RESP 12; TEMP 99
[2018-08-19] MEDS: MULTIVITAMINS, THERA 1 EACH TAB PO SCH (09:09)
[2018-08-19] MEDS: DULoxetine HCL 60 MG CAPSULE.DR PO SCH (09:09)
[2018-08-19] MEDS: GABAPENTIN 300 MG CAP PO SCH (09:09)
[2018-08-19] MEDS: THIAMINE 100 MG TAB PO SCH (09:09)
[2018-08-19 09:50] LABS: ALT 92 U/L (21-72); AST 53 U/L (17-59); Albumin 3.5 g/dL (3.5-5.0); Alkaline Phosphatase 66 U/L (38-126); Anion Gap 5 mmol/L; Blood Urea Nitrogen 14 mg/dL (9-20); Calcium 8.5 mg/dL (8.4-10.2); Carbon Dioxide 27 mmol/L (22-30); Chloride 107 mmol/L (98-107); Glucose 113 mg/dL (74-99); Potassium 3.9 mmol/L (3.5-5.1); Sodium 139 mmol/L (137-145); Total Bilirubin 1.5 mg/dL (0.2-1.3); Total Protein 6.1 g/dL (6.3-8.2)
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
== END 2018-08-19 14:33 | disposition home or self-care (01) ==
LOC: EC 21:13 → 4SSUR 08-18 01:32
PROVIDERS: ADMIT Internal Medicine; ATTEND Internal Medicine
DX: F10.239 Alcohol dependence with withdrawal, unspecified (principal); F10.229 Alcohol dependence with intoxication, unspecified; S36.33XA Laceration of stomach, initial encounter; S31.610A Laceration without foreign body of abdominal wall, right upper quadrant with penetration into peritoneal cavity, initial encounter; K70.10 Alcoholic hepatitis without ascites; F17.200 Nicotine dependence, unspecified, uncomplicated; Y90.8 Blood alcohol level of 240 mg/100 ml or more; R00.0 Tachycardia, unspecified; F32.9 Major depressive disorder, single episode, unspecified; F41.9 Anxiety disorder, unspecified; M54.9 Dorsalgia, unspecified; G89.29 Other chronic pain; Z82.3 Family history of stroke; Z79.899 Other long term (current) drug therapy; X99.9XXA Assault by unspecified sharp object, initial encounter
CPT/HCPCS: 36415; 71045; 71260; 74177; 80053; 80306; 80320; 81001; 83735; 84484; 85025; 85027; 85610; 85730; 86850; 86900; 86901; 90715; 96372; 96374; 96376; 99285

== ENCOUNTER 2018-08-27 03:15 | Emergency (ER) | payer OTHER ==
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
[2018-08-27 09:09] VITALS: BP 128/73; PULSE 104; RESP 18; TEMP 97.7
== END 2018-08-27 09:00 | disposition home or self-care (01) ==
LOC: EC 03:15
DX: F10.129 Alcohol abuse with intoxication, unspecified (principal); Z51.89 Encounter for other specified aftercare; F17.200 Nicotine dependence, unspecified, uncomplicated
CPT/HCPCS: 82075; 99284

== ENCOUNTER 2018-08-27 13:38 | Emergency (ER) | payer OTHER ==
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
[2018-08-27 19:10] VITALS: BP 140/87; PULSE 99; RESP 20; TEMP 97.7
== END 2018-08-27 19:17 | disposition home or self-care (01) ==
LOC: EC 13:38
DX: F10.920 Alcohol use, unspecified with intoxication, uncomplicated (principal); F17.200 Nicotine dependence, unspecified, uncomplicated
CPT/HCPCS: 99284

== ENCOUNTER 2018-08-28 14:59 | Observation (INO) | payer OTHER ==
[2018-08-28] MEDS ORDERED: SODIUM CHLORIDE 0.9% 1,000 ML IV ONE ×2 (15:08→18:00)
[2018-08-28] MEDS ORDERED: SODIUM CHLORIDE 0.9% 500 ML 500 ML IV ONE (15:08)
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
[2018-08-28 15:57] LABS: Basophils # (A) 0.1 k/uL (0-0.2); Basophils % (A) 1 %; Eosinophils # (A) 0.2 k/uL (0-0.7); Eosinophils % (A) 2 %; HCT 45.6 % (39.0-53.0); Lymphocytes # (A) 2.4 k/uL (1.0-4.8); Lymphocytes % (A) 31 %; MCH 32.4 pg (25.0-35.0); MCHC 32.9 g/dL (31.0-37.0); MCV 98.5 fL (80.0-100.0); Mean Platelet Volume 6.2; Monocytes # (A) 0.4 k/uL (0-1.0); Monocytes % (A) 5 %; Neutrophils # (A) 4.7 k/uL (1.3-7.7); Neutrophils % (A) 60 %; Platelet Count 292 k/uL (150-450); RBC 4.63 m/uL (4.30-5.90); RDW 12.6 % (11.5-15.5); WBC 7.9 k/uL (3.8-10.6)
[2018-08-28 16:08] LABS: ALT 87 U/L (21-72); AST 79 U/L (17-59); Albumin 4.5 g/dL (3.5-5.0); Alkaline Phosphatase 82 U/L (38-126); Anion Gap 13 mmol/L; Blood Urea Nitrogen 7 mg/dL (9-20); Calcium 9.1 mg/dL (8.4-10.2); Carbon Dioxide 26 mmol/L (22-30); Chloride 104 mmol/L (98-107); Glucose 72 mg/dL (74-99); Magnesium 2.1 mg/dL (1.6-2.3); Potassium 3.9 mmol/L (3.5-5.1); Sodium 143 mmol/L (137-145); Total Bilirubin 0.8 mg/dL (0.2-1.3); Total Protein 7.4 g/dL (6.3-8.2)
[2018-08-28 16:13] LABS: Amphetamine Screen,Urine Not Detected (NotDetected); Barbiturate Screen,Urine Not Detected (NotDetected); Benzodiazepines Screen,Urine Detected (NotDetected); Cocaine Screen,Urine Not Detected (NotDetected); Methadone Screen, Urine Not Detected (NotDetected); Opiate Screen,Urine Not Detected (NotDetected); Oxycodone Screen, Urine Not Detected (NotDetected); Phencyclidine Screen,Urine Not Detected (NotDetected); Tricyclic Antidepressant,Urine Not Detected (NotDetected); Urn Cannabinoid Scrn Not Detected (NotDetected)
[2018-08-28] MEDS ORDERED: THIAMINE 100 MG/ML 2 ML VIAL IM STA (18:01)
[2018-08-28] MEDS ORDERED: LORazepam 2 MG/ML INJ IV PRN ×3 (18:01)
[2018-08-28] MEDS ORDERED: NALOXONE 0.4 MG/ML 1 ML VIAL IV PRN (18:14)
[2018-08-28] MEDS ORDERED: ACETAMINOPHEN TAB 325 MG TAB PO PRN (18:14)
--- NOTE | 2018-08-28 18:23 | P.HPIM ---
History of Present Illness H&P Date: 08/28/18 Chief Complaint: alcohol intoxication 32-year-old male with no significant PMH presents to the ED intoxicated. EMS was called because patient was found stumbling, thought to be a danger to himself. Patient currently refuses to answer questions. Patient only complaint is that he feels woozy. He denies any headache, lower extremity edema, nausea, vomiting, fever, cough, chest pain, shortness of breath, palpitations, changes in urination or bowel habits. No changes in appetite or weight. In the ED, CBC was unremarkable. CMP showed a glucose of 72, AST of 79 and ALTs of 87. UDS was positive for benzos. EKG showed normal sinus rhythm. Patient's serum alcohol was 286. Patient is admitted for alcohol intoxication. Review of Systems All systems: negative Past Medical History Past Medical History: No Reported History Additional Past Medical History / Comment(s): chronic back pain, history of depression etoh abuse History of Any Multi-Drug Resistant Organisms: None Reported Past Surgical History: Orthopedic Surgery Additional Past Surgical History / Comment(s): right knee Past Anesthesia/Blood Transfusion Reactions: No Reported Reaction Past Psychological History: Anxiety, Depression Smoking Status: Current every day smoker Past Alcohol Use History: Abuse, Daily, Heavy Past Drug Use History: Cocaine, Marijuana - Past Family History Father History Unknown: Yes Family Medical History: CVA/TIA Additional Family Medical History / Comment(s): Unable to obtain family history secondary altered mentation Medications and Allergies Home Medications Medication Instructions Recorded Confirmed Type No Known Home Medications 08/27/18 08/28/18 History Allergies Allergy/AdvReac Type Severity Reaction Status Date / Time No Known Allergies Allergy Verified 08/28/18 16:35 Physical Exam Vitals: Vital Signs Temp Pulse Resp BP Pulse Ox 08/28/18 15:00 97.9 F 95 18 147/87 98 Intake and Output 08/28/18 08/28/18 08/28/18 06:59 14:59 22:59 Other: Weight 115.666 kg General: [non toxic], [facial flushing], [appears at stated age] Derm: [warm], [dry] Head: [atraumatic], [normocephalic], [symmetric] Eyes: [EOMI], [no lid lag], [anicteric sclera] Mouth: [no lip lesion], [mucus membranes moist] Cardiovascular: [S1S2 reg], [no murmur], [positive DP pulse bilateral] Lungs: [CTA bilateral], [no rhonchi, no rales] , [no accessory muscle use] Abdominal: [soft], [ nontender to palpation], [no guarding], [no appreciable organomegaly] Ext: [no gross muscle atrophy], [no edema], [no contractures] Neuro: [moving all extremities] Psych: [Alert], [oriented], [appropriate affect] Results CBC & Chem 7: 08/28/18 15:30 08/28/18 15:30 Labs: Abnormal Lab Results - Last 24 Hours (Table) 08/28/18 08/28/18 08/28/18 Range/Units 15:30 15:30 16:38 BUN 7 L (9-20) mg/dL Glucose 72 L (74-99) mg/dL AST 79 H (17-59) U/L ALT 87 H (21-72) U/L U Benzodiazepines Scrn Detected H (NotDetected) Serum Alcohol 286 H* mg/dL Thrombosis Risk Factor Assmnt - Choose All That Apply Any of the Below Risk Factors Present?: No Other Risk Factors: No Thrombosis Risk Factor Assessment Level: Very Low Risk Assessment and Plan Assessment: Assessment and Plan 1. Alcohol intoxication 2. Hypoglycemia 3. Transaminitis 1. Alcohol level 286 in the ED. CIWA protocol initiated. Start thiamine, folic acid and multivitamin. Ativan as needed for CIWA greater than 8. Tylenol as needed for pain management. Regular Accu-Cheks. Fall precautions. 2. Glucose 72. Patient is symptomatically. Likely due to poor appetite. Start D5 at 50 mL per hour for maintenance. 3. Elevated liver enzymes, AST 79, LT 87. Likely secondary to alcohol abuse. We'll continue to monitor. Patient admitted for alcohol intoxication. Likely discharge tomorrow when sober.
[2018-08-28] MEDS ORDERED: DEXTROSE 5%-0.9% NACL 1,000 ML IV SCH (18:30)
[2018-08-29 07:39] LABS: Glucose,Whole Blood 92 mg/dL (75-99)
[2018-08-29 08:26] VITALS: BP 138/71; PULSE 95; RESP 14; TEMP 98
[2018-08-29] MEDS: HYDROcodone/APAP 5-325MG 1 EACH TAB PO PRN ×2 (10:02→13:57)
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
[2018-08-29 11:59] LABS: Glucose,Whole Blood 190 mg/dL (75-99)
[2018-08-29] MEDS ORDERED: THIAMINE 100 MG TAB PO SCH (12:00)
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
== END 2018-08-29 14:22 | disposition home or self-care (01) ==
LOC: EC 14:59 → 4SSUR 18:00
PROVIDERS: ADMIT Family Medicine; ATTEND Family Medicine
DX: F10.129 Alcohol abuse with intoxication, unspecified (principal); R74.0 Nonspecific elevation of levels of transaminase and lactic acid dehydrogenase [LDH]; R74.8 Abnormal levels of other serum enzymes; E16.2 Hypoglycemia, unspecified; F17.200 Nicotine dependence, unspecified, uncomplicated; Y90.8 Blood alcohol level of 240 mg/100 ml or more; S31.110A Laceration without foreign body of abdominal wall, right upper quadrant without penetration into peritoneal cavity, initial encounter; W26.9XXA Contact with unspecified sharp object(s), initial encounter; W18.40XA Slipping, tripping and stumbling without falling, unspecified, initial encounter; Z82.3 Family history of stroke
CPT/HCPCS: 96374; 96361; 99285; 36415; 93005; 80053; 83735; 85025; 80306; 76705; G0378 ×2; G0480; J2060; 80320

== ENCOUNTER 2018-09-26 23:20 | Emergency (ER) | payer OTHER ==
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
[2018-09-27 07:10] VITALS: BP 106/57; PULSE 97; RESP 20; TEMP 98.7
== END 2018-09-27 07:11 | disposition home or self-care (01) ==
LOC: EC 23:20
DX: F10.129 Alcohol abuse with intoxication, unspecified (principal); F17.200 Nicotine dependence, unspecified, uncomplicated
CPT/HCPCS: 99284

== ENCOUNTER 2018-10-30 21:33 | Observation (INO) | payer OTHER ==
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
[2018-10-30] MEDS ORDERED: MORPHINE SULFATE 4 MG/ML SYRINGE IVP STA (23:21)
[2018-10-30] MEDS ORDERED: KETOROLAC 30 MG/ML 1 ML VIAL IVP STA (23:21)
--- NOTE | 2018-10-31 00:17 | US ---
EXAM: US Duplex Right Lower Extremity Veins CLINICAL HISTORY: ITS.REASON US Reason: Pain TECHNIQUE: Real-time duplex ultrasound scan of the right lower extremity veins integrating B-mode two-dimensional vascular structure, Doppler spectral analysis, color flow Doppler imaging and compression. COMPARISON: No relevant prior studies available. FINDINGS: Deep veins: DVT in the right popliteal vein. Superficial veins: Unremarkable. No thrombus in the visualized great saphenous vein. Soft tissues: No suspicious findings. No popliteal cyst. IMPRESSION: DVT in the right popliteal vein. <MYCVCSECTION> Critical Value Communications 10/31/18 00:31 Verify Receipt Verified receipt with GIO Childers for Dr. Lopez on 10/31 00:31 (-04:00)
[2018-10-31] MEDS ORDERED: SODIUM CHLORIDE 0.9% 1,000 ML IV STA (00:23)
[2018-10-31] MEDS ORDERED: HEPARIN SODIUM,PORCINE 10,000 UNIT/ML 1 ML VIAL IV ONE (00:23)
[2018-10-31] MEDS ORDERED: HEPARIN SODIUM,PORCINE 5,000 UNIT/ML 1 ML VIAL IV PRN (00:23)
[2018-10-31] MEDS ORDERED: SODIUM CHLORIDE 0.9% 1,000 ML IV ONE (00:23)
[2018-10-31] MEDS ORDERED: LORazepam 2 MG/ML INJ IV PRN ×3 (00:26)
[2018-10-31] MEDS ORDERED: THIAMINE 100 MG/ML 2 ML VIAL IM STA (00:26)
[2018-10-31] MEDS ORDERED: DIAZEPAM 5 MG/ML 2 ML INJ IVP STA (00:26)
[2018-10-31] MEDS ORDERED: HEPARIN SOD,PORK IN 0.45% NACL 25,000 UNIT in 0.45% NACL 1 250ML.BAG IV SCH (00:30)
[2018-10-31 01:13] LABS: Basophils # (A) 0.1 k/uL (0-0.2); Basophils % (A) 1 %; Eosinophils # (A) 0.1 k/uL (0-0.7); Eosinophils % (A) 2 %; HCT 45.9 % (39.0-53.0); Lymphocytes # (A) 2.9 k/uL (1.0-4.8); Lymphocytes % (A) 35 %; MCH 32.1 pg (25.0-35.0); MCHC 32.8 g/dL (31.0-37.0); MCV 97.9 fL (80.0-100.0); Mean Platelet Volume 7.6; Monocytes # (A) 0.5 k/uL (0-1.0); Monocytes % (A) 6 %; Neutrophils # (A) 4.7 k/uL (1.3-7.7); Neutrophils % (A) 55 %; Platelet Count 222 k/uL (150-450); RBC 4.69 m/uL (4.30-5.90); RDW 12.4 % (11.5-15.5); WBC 8.5 k/uL (3.8-10.6)
[2018-10-31 01:22] LABS: ALT 96 U/L (21-72); AST 117 U/L (17-59); Albumin 4.5 g/dL (3.5-5.0); Alkaline Phosphatase 108 U/L (38-126); Anion Gap 10 mmol/L; Blood Urea Nitrogen 7 mg/dL (9-20); Carbon Dioxide 22 mmol/L (22-30); Chloride 110 mmol/L (98-107); Glucose 88 mg/dL (74-99); Magnesium 2.1 mg/dL (1.6-2.3); Phosphorus 4.4 mg/dL (2.5-4.5); Potassium 3.9 mmol/L (3.5-5.1); Sodium 142 mmol/L (137-145); Total Bilirubin 0.2 mg/dL (0.2-1.3); Total Protein 7.5 g/dL (6.3-8.2)
[2018-10-31 01:25] LABS: Alcohol 299 mg/dL
[2018-10-31 01:32] LABS: INR 0.9 (<1.2); Prothrombin Time 9.4 sec (9.0-12.0)
[2018-10-31 01:34] LABS: D-Dimer 1.74 mg/L FEU (<0.60); Partial Thromboplastin Time 21.9 sec (22.0-30.0)
[2018-10-31] MEDS ORDERED: IBUPROFEN 600 MG TAB PO PRN (02:04)
[2018-10-31 02:38] VITALS: RESP 16
[2018-10-31 07:32] VITALS: BP 141/75; PULSE 88; TEMP 98
[2018-10-31] MEDS ORDERED: traMADol 50 MG TAB PO PRN (08:12)
[2018-10-31] MEDS ORDERED: APIXABAN 5 MG TAB PO SCH (11:15)
--- NOTE | 2018-10-31 12:20 | P.HPIM ---
History of Present Illness patient is a 33-year-old male, swelling of the right lower exudate has been going on for last few days. Patient was comparing of severe pain no trauma. Patient is found to have DVT in the popliteal vein on the right side. 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 Although he does have significant family history of DVT since his father and paternal aunt. Patient will be started on Eliquis will be given 9 started back if his insurance doesn't approve Eliquis patient can be bridged with Eliquis and before he is done with month prescription of this Eliquis a week before that patient can be switched to Coumadin with INR check in 5 days after starting Coumadin. For now patient will be discharged on Eliquis 10 mg twice a day for be followed by 5 mg twice a day will be given free starter pack. Patient will be referred to Dr. Zelaya. Patient does drinkalcohol one fifth every day patient will have all call withdraws as per the patient. I had extensive discussion with the patient although patient is not willing to quit alcohol. Patient has minimal wheeze on exam and patient was discharged on albuterol does smoke may have early stages of COPD. Since patient is not willing to quit alcohol there is no benefit in treating his alco hol withdrawals here. Patient will be given Prilosec along with the compression socks for his both legs for his DVT in the right leg along with ibuprofen for pain. Patient was strongly advised to quit alcohol down the line. Review of Systems REVIEW OF SYSTEMS: CONSTITUTIONAL: No fever, no malaise, no fatigue. HEENT: No recent visual problems or hearing problems. Denied any sore throat. CARDIOVASCULAR: No chest pain, orthopnea, PND, no palpitations, no syncope. PULMONARY: No shortness of breath, no cough, no hemoptysis. GASTROINTESTINAL: No diarrhea, no nausea, no vomiting, no abdominal pain. NEUROLOGICAL: No headaches, no weakness, no numbness. HEMATOLOGICAL: Denies any bleeding or petechiae. GENITOURINARY: Denies any burning micturition, frequency, or urgency. MUSCULOSKELETAL/RHEUMATOLOGICAL: Denies any joint pain, , or any muscle pain. right leg swelling ENDOCRINE: Denies any polyuria or polydipsia. The rest of the 14-point review of systems is negative. Past Medical History Past Medical History: No Reported History Additional Past Medical History / Comment(s): chronic back pain, history of depression etoh abuse, DVT History of Any Multi-Drug Resistant Organisms: None Reported Past Surgical History: Orthopedic Surgery Additional Past Surgical History / Comment(s): right knee Past Anesthesia/Blood Transfusion Reactions: No Reported Reaction Past Psychological History: Anxiety, Depression Smoking Status: Current every day smoker Past Alcohol Use History: Abuse, Daily, Heavy Additional Past Alcohol Use History / Comment(s): Per patient he states he drinks a fith a day of whiskey. Past Drug Use History: Cocaine, Marijuana Additional Drug Use History / Comment(s): Patient states he uses codeine pain killers from a friend to help with pain. Patiehnt states he used cocaine or marjuana in Decemeber. pt states using marjuana 4 days ago and adderall from a friend. no other drug use. - Past Family History Father History Unknown: Yes Family Medical History: CVA/TIA Additional Family Medical History / Comment(s): Unable to obtain family history secondary altered mentation Medications and Allergies Home Medications Medication Instructions Recorded Confirmed Type Albuterol Inhaler [Ventolin Hfa 1 - 2 puff INHALATION Q6HR PRN #1 10/31/18 Rx Inhaler] inhaler Apixaban [Eliquis Starter Pack 5 mg PO DIRECTED 30 Days #1 pack 10/31/18 Rx (for VTE)] Ibuprofen [Motrin Ib] 400 mg PO TID PRN #30 tablet 10/31/18 Rx Omeprazole [PriLOSEC] 40 mg PO AC-BRKFST #30 capsule. 10/31/18 Rx Thiamine [Vitamin B-1] 100 mg PO DAILY #30 tab 10/31/18 Rx Allergies Allergy/AdvReac Type Severity Reaction Status Date / Time No Known Allergies Allergy Verified 10/30/18 22:22 Physical Exam Vitals: Vital Signs Temp Pulse Pulse Resp BP BP Pulse Ox 10/31/18 08:22 96 10/31/18 07:00 98.0 F 88 16 141/75 96 10/31/18 02:36 97.6 F 94 16 142/85 94 L 10/31/18 01:01 98 F 78 18 135/75 97 10/30/18 21:50 97.9 F 96 20 133/81 97 Intake and Output 10/30/18 10/31/18 10/31/18 22:59 06:59 14:59 Intake Total 600 141.143 Balance 600 141.143 Intake: Intake, IV Titration 600 141.143 Amount Heparin Sod,Pork in 0.45% 141.143 NaCl 25,000 unit In 0.45 % NaCl 1 250ml.bag @ 18 UNITS/KG/HR 18.37 mls/hr IV .[id number] [facility] Rx#: [id number] Sodium Chloride 0.9% 1, 600 000 ml @ 100 mls/hr IV . Q10H ONE Rx#:[id number] Other: Weight 102.058 kg PHYSICAL EXAMINATION: GENERAL: The patient is alert and oriented x3, not in any acute distress. Well developed, well nourished. HEENT: Pupils are round and equally reacting to light. EOMI. No scleral icterus. No conjunctival pallor. Normocephalic, atraumatic. No pharyngeal erythema. No thyromegaly. CARDIOVASCULAR: S1 and S2 present. No murmurs, rubs, or gallops. PULMONARY: good air entry bilateral lung black minimal expiratory wheezing ABDOMEN: Soft, nontender, nondistended, normoactive bowel sounds. No palpable organomegaly. MUSCULOSKELETAL: No joint swelling or deformity. EXTREMITIES: No cyanosis, clubbing,swollen right leg with mild tenderness in the right calf area NEUROLOGICAL: Gross neurological examination did not reveal any focal deficits. SKIN: No rashes. Results CBC & Chem 7: 10/31/18 01:00 10/31/18 01:00 Labs: Abnormal Lab Results - Last 24 Hours (Table) 10/31/18 10/31/18 10/31/18 Range/Units 01:00 01:00 07:04 APTT 21.9 L 47.5 H (22.0-30.0) sec D-Dimer 1.74 H (<0.60) mg/L FEU Chloride 110 H (98-107) mmol/L BUN 7 L (9-20) mg/dL AST 117 H (17-59) U/L ALT 96 H (21-72) U/L Serum Alcohol 299 H* mg/dL Thrombosis Risk Factor Assmnt - Choose All That Apply Any of the Below Risk Factors Present?: No Other Risk Factors: No Other congenital or acquired thrombophilia - If yes, enter type in comment: No Thrombosis Risk Factor Assessment Level: Very Low Risk Assessment and Plan Plan: deep venous thrombosis of the right popliteal vein: This looks like an on precipitated DVT may need lifelong anticoagulation.patient will be started on Eliquis started back before he is done with this Eliquis can be bridged toCoumad in if her insurance doesn't cover it. -possible mild COPD with mild acute exacerbation patient was started on albuterol may need inhalational steroids down the line and memory function testing nicotine cessation counseling was provided -Alcohol abuse and possible alcohol withdrawals patient is not willing to quit alcohol because of that reason patient will not stay in the hospital for treatment of alcohol withdrawals. Patient will be given prescription for Prilosec and thiamine supplementation. Patient was strongly advised to quit alcohol as well.
--- NOTE | 2018-10-31 12:20 | P.DS ---
Providers Date of admission: 10/31/18 00:26 Attending physician: Corby Patel Primary care physician: Stated None Hospital Course: as mentioned in HPI Patient Condition at Discharge: Fair Plan - Discharge Summary Discharge Rx Participant: Yes New Discharge Prescriptions: New Apixaban [Eliquis Starter Pack (for VTE)] 5 mg PO DIRECTED 30 Days #1 pack Albuterol Inhaler [Ventolin Hfa Inhaler] 1 - 2 puff INHALATION Q6HR PRN #1 inhaler PRN Reason: Shortness Of Breath Or Wheezing Thiamine [Vitamin B-1] 100 mg PO DAILY #30 tab Omeprazole [PriLOSEC] 40 mg PO AC-BRKFST #30 capsule.[address] Burnett Ibuprofen [Motrin Ib] 400 mg PO TID PRN #30 tablet PRN Reason: Pain Discharge Medication List Albuterol Inhaler [Ventolin Hfa Inhaler] 1 - 2 puff INHALATION Q6HR PRN #1 inhaler 10/31/18 [Rx] Apixaban [Eliquis Starter Pack (for VTE)] 5 mg PO DIRECTED 30 Days #1 pack 10/31/18 [Rx] Ibuprofen [Motrin Ib] 400 mg PO TID PRN #30 tablet 10/31/18 [Rx] Omeprazole [PriLOSEC] 40 mg PO AC-BRKFST #30 capsule. 10/31/18 [Rx] Thiamine [Vitamin B-1] 100 mg PO DAILY #30 tab 10/31/18 [Rx] Follow up Appointment(s)/Referral(s): Talia Zelaya MD [REFERRING] - 1 Week None,Stated [Primary Care Provider] - 1-2 days Patient Instructions/Handouts: Deep Vein Thrombosis (ED) Discharge Disposition: HOME SELF-CARE
[2018-10-31] MEDS ORDERED: THIAMINE 100 MG TAB PO SCH (17:00)
== END 2018-10-31 13:52 | disposition home or self-care (01) ==
LOC: EC 21:33 → 4SSUR 10-31 00:26
PROVIDERS: ADMIT Hospitalist; ATTEND Hospitalist
DX: I82.431 Acute embolism and thrombosis of right popliteal vein (principal); F10.129 Alcohol abuse with intoxication, unspecified; R41.82 Altered mental status, unspecified; F32.9 Major depressive disorder, single episode, unspecified; G89.29 Other chronic pain; M54.9 Dorsalgia, unspecified; F41.9 Anxiety disorder, unspecified; F17.200 Nicotine dependence, unspecified, uncomplicated; Z82.3 Family history of stroke; Z83.2 Family history of diseases of the blood and blood-forming organs and certain disorders involving the immune mechanism; Z91.14 Patient's other noncompliance with medication regimen
CPT/HCPCS: 96376 ×2; 96366; 96375 ×3; 96365; 96372; 99285; 94760; 93005; 85379; 80053; 83735; 84100; 85025; 85610; 85730; 93971; G0378; G0480; J2060; J2270; J1644 ×2; J3411; J3360; J1885; 80320

== ENCOUNTER 2018-11-04 17:43 | Observation (INO) | payer OTHER ==
--- NOTE | 2018-11-04 17:38 | CT ---
EXAMINATION TYPE: CT angio chest without and with contrast and with 3-D reconstruction renderings DATE OF EXAM: 11/04/2018 5:10 PM COMPARISON: 08/18/2018 HISTORY: chest and bilateral leg pain, SOB CT DLP: 1183 mGycm Automated exposure control for dose reduction was used. CONTRAST: CTA scan of the thorax is performed with IV Contrast, patient injected with 74cc mL of Isov ue 370, pulmonary embolism protocol. Three-D reconstructions.. FINDINGS: LUNGS: The lungs are grossly clear, there is no concerning parenchymal mass or nodule identified. T here is no pleural effusion or pneumothorax seen. The tracheobronchial tree is patent. MEDIASTINUM: There is mild-plus enhancement of the pulmonary artery and its branches. There are thin lobar and segmental low-attenuation nonocclusive filling defects in the right lower lobe pulmonary ar adeola, consistent with nonocclusive pulmonary emboli. Remainder of the pulmonary arterial tree is unr emarkable. There is no evidence of right heart strain. The aorta is negative for acute findings. There is no cardiomegaly or pericardial effusion. No adenopathy. OTHER: No additional significant abnormality is seen. IMPRESSION: POSITIVE FOR NONOCCLUSIVE PULMONARY EMBOLISM, DISCUSSED.
[2018-11-04 19:17] LABS: Basophils # (A) 0.1 k/uL (0-0.2); Basophils % (A) 1 %; Eosinophils # (A) 0.2 k/uL (0-0.7); Eosinophils % (A) 3 %; HCT 47.1 % (39.0-53.0); HGB 15.6 gm/dL (13.0-17.5); Lymphocytes # (A) 1.7 k/uL (1.0-4.8); Lymphocytes % (A) 23 %; MCH 32.2 pg (25.0-35.0); MCHC 33.1 g/dL (31.0-37.0); MCV 97.1 fL (80.0-100.0); Mean Platelet Volume 7.6; Monocytes # (A) 0.5 k/uL (0-1.0); Monocytes % (A) 7 %; Neutrophils # (A) 4.8 k/uL (1.3-7.7); Neutrophils % (A) 64 %; Platelet Count 241 k/uL (150-450); RBC 4.85 m/uL (4.30-5.90); RDW 13.5 % (11.5-15.5); WBC 7.4 k/uL (3.8-10.6)
[2018-11-04 19:26] LABS: ALT 75 U/L (21-72); AST 77 U/L (17-59); Albumin 4.4 g/dL (3.5-5.0); Alkaline Phosphatase 115 U/L (38-126); Anion Gap 8 mmol/L; Blood Urea Nitrogen 9 mg/dL (9-20); Calcium 9.4 mg/dL (8.4-10.2); Carbon Dioxide 25 mmol/L (22-30); Chloride 105 mmol/L (98-107); Glucose 89 mg/dL (74-99); Potassium 4.3 mmol/L (3.5-5.1); Sodium 138 mmol/L (137-145); Total Protein 7.3 g/dL (6.3-8.2)
[2018-11-04] MEDS ORDERED: HEPARIN SODIUM,PORCINE 5,000 UNIT/ML 1 ML VIAL IV ONE (20:23)
--- NOTE | 2018-11-04 20:28 | ED ---
General Adult HPI - General Chief complaint: Shortness of Breath Stated complaint: Poss PE Time Seen by Provider: 11/04/18 18:45 Source: patient, RN notes reviewed Mode of arrival: ambulatory Limitations: no limitations - History of Present Illness Initial comments: This is a 33-year-old male who was recently diagnosed with a DVT. Patient states he was not able to get his anticoagulation medications because of his insurance. Patient went to his primary today because he is having some shortness of breath and some chest pain. Patient's states that his primary gave him a prescription for a CAT scan he came over get the CAT scan showed pulmonary embolism so the primary want him to come to the hospital be admitted. Patient states he continues to have chest pain shortness of breath while sitting here. Patient denies any recent fever chills per patient denies any near syncopal episode. Patient denies abdominal pain. Patient states his right calf is very painful. - Related Data Home Medications Medication Instructions Recorded Confirmed Albuterol Inhaler [Ventolin Hfa 1 - 2 puff INHALATION RT-QID PRN 11/04/18 11/04/18 Inhaler] Previous Rx's Medication Instructions Recorded Apixaban [Eliquis Starter Pack 5 mg PO DIRECTED 30 Days #1 pack 10/31/18 (for VTE)] Ibuprofen [Motrin Ib] 400 mg PO TID PRN #30 tablet 10/31/18 Omeprazole [PriLOSEC] 40 mg PO AC-BRKFST #30 capsule. 10/31/18 Thiamine [Vitamin B-1] 100 mg PO DAILY #30 tab 10/31/18 Allergies Allergy/AdvReac Type Severity Reaction Status Date / Time No Known Allergies Allergy Verified 11/04/18 20:19 Review of Systems ROS Statement: Those systems with pertinent positive or pertinent negative responses have been documented in the HPI. ROS Other: All systems not noted in ROS Statement are negative. Past Medical History Past Medical History: No Reported History Additional Past Medical History / Comment(s): chronic back pain, history of depression etoh abuse, DVT History of Any Multi-Drug Resistant Organisms: None Reported Past Surgical History: Orthopedic Surgery Additional Past Surgical History / Comment(s): right knee Past Anesthesia/Blood Transfusion Reactions: No Reported Reaction Past Psychological History: Anxiety, Depression Smoking Status: Current every day smoker Past Alcohol Use History: Abuse, Daily, Heavy Past Drug Use History: Cocaine, Marijuana - Past Family History Father History Unknown: Yes Family Medical History: CVA/TIA Additional Family Medical History / Comment(s): Unable to obtain family history secondary altered mentation General Exam - General Exam Comments Initial Comments: GENERAL: Patient is well-developed and well-nourished. Patient is nontoxic and well- hydrated and is in mild distress. ENT: Neck is soft and supple. No significant lymphadenopathy is noted. Oropharynx is clear. Moist mucous membranes. Neck has full range of motion without eliciting any pain. EYES: The sclera were anicteric and conjunctiva were pink and moist. Extraocular movements were intact and pupils were equal round and reactive to light. Eyelids were unremarkable. PULMONARY: Unlabored respirations. Good breath sounds bilaterally. No audible rales rhonchi or wheezing was noted. CARDIOVASCULAR: There is a regular rate and rhythm without any murmurs gallops or rubs. ABDOMEN: Soft and nontender with normal bowel sounds. SKIN: Skin is clear with no lesions or rashes and otherwise unremarkable. NEUROLOGIC: Patient is alert and oriented x3. Cranial nerves II through XII are grossly intact. Motor and sensory are also intact. Normal speech, volume and content. Symmetrical smile. MUSCULOSKELETAL: Normal extremities with adequate strength and full range of motion. Right calf tenderness LYMPHATICS: No significant lymphadenopathy is noted PSYCHIATRIC: Normal psychiatric evaluation. Limitations: no limitations Course Vital Signs 11/04/18 11/04/18 11/04/18 18:43 18:47 21:09 Temperature 98.7 F Pulse Rate 94 86 Pulse Rate [ Pulse Oximetery ] Respiratory 18 16 16 Rate Blood Pressure 150/101 144/85 Blood Pressure [Left Arm] O2 Sat by Pulse 98 98 Oximetry 11/04/18 11/05/18 11/05/18 22:31 00:00 00:59 Temperature 98 F Pulse Rate 85 77 66 Pulse Rate [ Pulse Oximetery ] Respiratory 16 16 16 Rate Blood Pressure 133/86 135/65 128/78 Blood Pressure [Left Arm] O2 Sat by Pulse 96 97 97 Oximetry 11/05/18 11/05/18 11/05/18 04:00 08:30 12:00 Temperature 98 F Pulse Rate 73 Pulse Rate [ 72 79 78 Pulse Oximetery ] Respiratory 16 18 18 Rate Blood Pressure 134/94 Blood Pressure 133/93 138/95 128/70 [Left Arm] O2 Sat by Pulse 97 98 98 Oximetry Medical Decision Making - Medical Decision Making EKG shows normal sinus rhythm at 81 bpm TX interval 154 QRS is 86 QT interval 364 QTC is 422. Patient's EKG shows no ST segment elevation or depression or T wave abnormalities are noted I reviewed the computed tomography scan. It did show pulmonary embolism but nonocclusive. I spoke with Dr. Aguayo and she agreed to admit the patient admitted the patient I wrote admitting orders. I placed the patient on heparin and I wrote admitting orders and continue the heparin the floor. - Lab Data Result diagrams: 11/04/18 19:05 11/04/18 19:05 Lab Results 11/04/18 11/04/18 11/04/18 Range/Units 19:05 19:05 19:05 WBC 7.4 (3.8-10.6) k/uL RBC 4.85 (4.30-5.90) m/uL Hgb 15.6 (13.0-17.5) gm/dL Hct 47.1 (39.0-53.0) % MCV 97.1 (80.0-100.0) fL MCH 32.2 (25.0-35.0) pg MCHC 33.1 (31.0-37.0) g/dL RDW 13.5 (11.5-15.5) % Plt Count 241 (150-450) k/uL Neutrophils % 64 % Lymphocytes % 23 % Monocytes % 7 % Eosinophils % 3 % Basophils % 1 % Neutrophils # 4.8 (1.3-7.7) k/uL Lymphocytes # 1.7 (1.0-4.8) k/uL Monocytes # 0.5 (0-1.0) k/uL Eosinophils # 0.2 (0-0.7) k/uL Basophils # 0.1 (0-0.2) k/uL D-Dimer (<0.60) mg/L FEU Sodium 138 (137-145) mmol/L Potassium 4.3 (3.5-5.1) mmol/L Chloride 105 (98-107) mmol/L Carbon Dioxide 25 (22-30) mmol/L Anion Gap 8 mmol/L BUN 9 (9-20) mg/dL Creatinine 0.81 (0.66-1.25) mg/dL Est GFR (CKD-EPI)AfAm >90 (>60 ml/min/1.73 sqM) Est GFR (CKD-EPI)NonAf >90 (>60 ml/min/1.73 sqM) Glucose 89 (74-99) mg/dL Plasma Lactic Acid Alfie 0.7 (0.7-2.0) mmol/L Calcium 9.4 (8.4-10.2) mg/dL Total Bilirubin 1.0 (0.2-1.3) mg/dL AST 77 H (17-59) U/L ALT 75 H (21-72) U/L Alkaline Phosphatase 115 (38-126) U/L Troponin I (0.000-0.034) ng/mL Total Protein 7.3 (6.3-8.2) g/dL Albumin 4.4 (3.5-5.0) g/dL 11/04/18 11/04/18 Range/Units 19:05 19:05 WBC (3.8-10.6) k/uL RBC (4.30-5.90) m/uL Hgb (13.0-17.5) gm/dL Hct (39.0-53.0) % MCV (80.0-100.0) fL MCH (25.0-35.0) pg MCHC (31.0-37.0) g/dL RDW (11.5-15.5) % Plt Count (150-450) k/uL Neutrophils % % Lymphocytes % % Monocytes % % Eosinophils % % Basophils % % Neutrophils # (1.3-7.7) k/uL Lymphocytes # (1.0-4.8) k/uL Monocytes # (0-1.0) k/uL Eosinophils # (0-0.7) k/uL Basophils # (0-0.2) k/uL D-Dimer 1.16 H (<0.60) mg/L FEU Sodium (137-145) mmol/L Potassium (3.5-5.1) mmol/L Chloride (98-107) mmol/L Carbon Dioxide (22-30) mmol/L Anion Gap mmol/L BUN (9-20) mg/dL Creatinine (0.66-1.25) mg/dL Est GFR (CKD-EPI)AfAm (>60 ml/min/1.73 sqM) Est GFR (CKD-EPI)NonAf (>60 ml/min/1.73 sqM) Glucose (74-99) mg/dL Plasma Lactic Acid Alfie (0.7-2.0) mmol/L Calcium (8.4-10.2) mg/dL Total Bilirubin (0.2-1.3) mg/dL AST (17-59) U/L ALT (21-72) U/L Alkaline Phosphatase (38-126) U/L Troponin I <0.012 (0.000-0.034) ng/mL Total Protein (6.3-8.2) g/dL Albumin (3.5-5.0) g/dL Critical Care Time Critical Care Time: Yes Total Critical Care Time: 35 Disposition Clinical Impression: Acute pulmonary embolism Disposition: ADMITTED IP TO THIS [facility] Time of Disposition: 20:28
[2018-11-04] MEDS ORDERED: HEPARIN SOD,PORK IN 0.45% NACL 25,000 UNIT in 0.45% NACL 1 250ML.BAG IV SCH (20:30)
[2018-11-04] MEDS ORDERED: HEPARIN SODIUM,PORCINE 10,000 UNIT/ML 1 ML VIAL IV ONE (20:30)
[2018-11-04] MEDS: HEPARIN SOD,PORK IN 0.45% NACL 25,000 UNIT in 0.45% NACL 1 250ML.BAG IV SCH (21:14)
[2018-11-04] MEDS ORDERED: KETOROLAC 60 MG/2 ML VIAL IVP STA (21:53)
[2018-11-05] MEDS ORDERED: SODIUM CHLORIDE 0.9% 1,000 ML IV ONE (00:08)
[2018-11-05 00:14] VITALS: TEMP 98
[2018-11-05 05:27] VITALS: BMI 28.1
[2018-11-05 09:56] VITALS: RESP 18
[2018-11-05] MEDS ORDERED: LORazepam 2 MG/ML INJ IV PRN ×3 (10:56)
[2018-11-05] MEDS ORDERED: FOLIC ACID 1 MG TAB PO SCH (11:00)
[2018-11-05] MEDS ORDERED: THIAMINE 100 MG TAB PO SCH (11:00)
[2018-11-05] MEDS ORDERED: APIXABAN 5 MG TAB PO SCH (12:30)
--- NOTE | 2018-11-05 12:39 | P.DS ---
Providers Date of admission: 11/05/18 00:08 Attending physician: Thai Gracia MD Primary care physician: Klever Prieto [facility] Course: Please refer to my HPI Plan - Discharge Summary Discharge Rx Participant: No New Discharge Prescriptions: No Action Apixaban [Eliquis Starter Pack (for VTE)] 5 mg PO DIRECTED 30 Days #1 pack Thiamine [Vitamin B-1] 100 mg PO DAILY #30 tab Ibuprofen [Motrin Ib] 400 mg PO TID PRN #30 tablet PRN Reason: Pain Omeprazole [PriLOSEC] 40 mg PO AC-BRKFST #30 capsule. Albuterol Inhaler [Ventolin Hfa Inhaler] 1 - 2 puff INHALATION RT-QID PRN PRN Reason: Shortness Of Breath Or Wheezing Discharge Medication List Apixaban [Eliquis Starter Pack (for VTE)] 5 mg PO DIRECTED 30 Days #1 pack 10/31/18 [Rx] Ibuprofen [Motrin Ib] 400 mg PO TID PRN #30 tablet 10/31/18 [Rx] Omeprazole [PriLOSEC] 40 mg PO AC-BRKFST #30 capsule. 10/31/18 [Rx] Thiamine [Vitamin B-1] 100 mg PO DAILY #30 tab 10/31/18 [Rx] Albuterol Inhaler [Ventolin Hfa Inhaler] 1 - 2 puff INHALATION RT-QID PRN 11/04/18 [History] Follow up Appointment(s)/Referral(s): Klever Prieto DO [Primary Care Provider] - 11/10/18 1:00 pm (with Poli Pinzon) Patient Instructions/Handouts: Pulmonary Embolism (DC), Safe Use of Anticoagulants (DC) Discharge Disposition: HOME SELF-CARE
--- NOTE | 2018-11-05 12:39 | P.HPIM ---
History of Present Illness 33-year-old male was recently diagnosed with DVT and discharge him on Eliquis. Patient was given a coupon for Eliquis as per the patient patient presented this coupon pharmacy and never filled the prescription with that coupon. Patient today comes in with a rash on his of breath and chest pain. Patient just pain sharp in nature CAT scan did show pulmonary embolism in one of the branches of the right pulmonary vessels. Patient is feeling better pain resolved now patient doesn't have any short of breath anymore. Patient is also being treated for alcohol withdrawal although patient quit drinking alcohol couple days ago and patient doesn't have any withdrawals at this time I do not expect him to have any more withdrawals. Patient looks much better than last hospitalization. We'll try and get him one more month of Eliquis, director case management will talk to the pharmacy and the prescription will be filled here. Patient need to be transitioned to Coumadin before [facility] runs out of this Eliquis as an outpatient. Review of Systems REVIEW OF SYSTEMS: CONSTITUTIONAL: No fever, no malaise, no fatigue. HEENT: No recent visual problems or hearing problems. Denied any sore throat. CARDIOVASCULAR: No chest pain, orthopnea, PND, no palpitations, no syncope. PULMONARY: No shortness of breath, no cough, no hemoptysis. GASTROINTESTINAL: No diarrhea, no nausea, no vomiting, no abdominal pain. NEUROLOGICAL: No headaches, no weakness, no numbness. HEMATOLOGICAL: Denies any bleeding or petechiae. GENITOURINARY: Denies any burning micturition, frequency, or urgency. MUSCULOSKELETAL/RHEUMATOLOGICAL: Denies any joint pain, swelling, or any muscle pain. ENDOCRINE: Denies any polyuria or polydipsia. The rest of the 14-point review of systems is negative. Past Medical History Past Medical History: Deep Vein Thrombosis (DVT), Pulmonary Embolus (PE) Additional Past Medical History / Comment(s): chronic back pain, history of d epression etoh abuse, DVT History of Any Multi-Drug Resistant Organisms: None Reported Past Surgical History: Orthopedic Surgery Additional Past Surgical History / Comment(s): right knee Past Anesthesia/Blood Transfusion Reactions: No Reported Reaction Past Psychological History: Anxiety, Depression Smoking Status: Current every day smoker Past Alcohol Use History: Abuse, Daily, Heavy Additional Past Alcohol Use History / Comment(s): Per patient he states he drinks a fifth of anty liqour he can find Past Drug Use History: Cocaine, Marijuana Additional Drug Use History / Comment(s): Patient states he uses codeine pain killers from a friend to help with pain. Patiehnt states he used cocaine or marjuana in Decemeber. pt states using marjuana 4 days ago and adderall from a friend. no other drug use. - Past Family History Father History Unknown: Yes Family Medical History: CVA/TIA Additional Family Medical History / Comment(s): Unable to obtain family history secondary altered mentation Medications and Allergies Home Medications Medication Instructions Recorded Confirmed Type Apixaban [Eliquis Starter Pack 5 mg PO DIRECTED 30 Days #1 pack 10/31/18 11/04/18 Rx (for VTE)] Ibuprofen [Motrin Ib] 400 mg PO TID PRN #30 tablet 10/31/18 11/04/18 Rx Omeprazole [PriLOSEC] 40 mg PO AC-BRKFST #30 capsule. 10/31/18 11/04/18 Rx Thiamine [Vitamin B-1] 100 mg PO DAILY #30 tab 10/31/18 11/04/18 Rx Albuterol Inhaler [Ventolin Hfa 1 - 2 puff INHALATION RT-QID PRN 11/04/18 0 11/04/18 History Inhaler] Allergies Allergy/AdvReac Type Severity Reaction Status Date / Time No Known Allergies Allergy Verified 11/04/18 20:19 Physical Exam Vitals: Vital Signs Temp Pulse Pulse Resp BP BP Pulse Ox 11/05/18 08:30 98 F 79 18 138/95 98 11/05/18 04:00 73 72 16 134/94 133/93 97 11/05/18 00:59 66 16 128/78 97 11/05/18 00:00 98 F 77 16 135/65 97 11/04/18 22:31 85 16 133/86 96 11/04/18 21:09 86 16 144/85 98 11/04/18 18:47 16 11/04/18 18:43 98.7 F 94 18 150/101 98 Intake and Output 11/04/18 11/05/18 11/05/18 22:59 06:59 14:59 Intake Total 153.39 Balance 153.39 Intake: Intake, IV Titration 153.39 Amount Heparin Sod,Pork in 0.45% 153.39 NaCl 25,000 unit In 0.45 % NaCl 1 250ml.bag @ 18 UNITS/KG/HR 18.37 mls/hr IV .[id number] [facility] Rx#: [id number] Other: # Voids 1 Weight 102.058 kg PHYSICAL EXAMINATION: GENERAL: The patient is alert and oriented x3, not in any acute distress. Well developed, well nourished. HEENT: Pupils are round and equally reacting to light. EOMI. No scleral icterus. No conjunctival pallor. Normocephalic, atraumatic. No pharyngeal erythema. No thyromegaly. CARDIOVASCULAR: S1 and S2 present. No murmurs, rubs, or gallops. PULMONARY: Chest is clear to auscultation, no wheezing or crackles. ABDOMEN: Soft, nontender, nondistended, normoactive bowel sounds. No palpable organomegaly. MUSCULOSKELETAL: No joint swelling or deformity. EXTREMITIES: No cyanosis, clubbing, or pedal edema. NEUROLOGICAL: Gross neurological examination did not reveal any focal deficits. SKIN: No rashes. Results CBC & Chem 7: 11/04/18 19:05 11/04/18 19:05 Labs: Abnormal Lab Results - Last 24 Hours (Table) 11/04/18 11/04/18 11/05/18 Range/Units 19:05 19:05 03:28 APTT 52.8 H (22.0-30.0) sec D-Dimer 1.16 H (<0.60) mg/L FEU AST 77 H (17-59) U/L ALT 75 H (21-72) U/L Thrombosis Risk Factor Assmnt - Choose All That Apply Any of the Below Risk Factors Present?: Yes Each Factor Represents 1 point: Obesity (BMI >25) Other Risk Factors: Yes Each Risk Factor Represents 3 Points: History of DVT/PE Other congenital or acquired thrombophilia - If yes, enter type in comment: No Thrombosis Risk Factor Assessment Total Risk Factor Score: 4 Thrombosis Risk Factor Assessment Level: Moderate Risk Assessment and Plan Plan: -Thromboembolism acute: With a right-sided PE and DVT in the right leg. Plan as mentioned above patient will be discharged today no more need for hospice physician -Alcohol abuse history quit drinking couple days ago patient presently doesn't have any withdrawals because of which I don't expect any withdrawals and him patient will continue his thiamine multivitamin supplementation patient is agreeable not to drink alcohol anymore. -Possible mild COPD not in acute exacerbation
[2018-11-05] MEDS: HEPARIN SOD,PORK IN 0.45% NACL 25,000 UNIT in 0.45% NACL 1 250ML.BAG IV SCH (13:03)
[2018-11-05 13:12] VITALS: BP 128/70; PULSE 78
== END 2018-11-05 13:41 | disposition home or self-care (01) ==
LOC: EC 17:43 → 3SCARD 11-05 00:08
PROVIDERS: ADMIT Internal Medicine; ATTEND Internal Medicine
DX: I26.99 Other pulmonary embolism without acute cor pulmonale (principal); I82.401 Acute embolism and thrombosis of unspecified deep veins of right lower extremity; T45.516A Underdosing of anticoagulants, initial encounter; G89.29 Other chronic pain; M54.9 Dorsalgia, unspecified; F17.200 Nicotine dependence, unspecified, uncomplicated; E66.9 Obesity, unspecified; Z68.28 Body mass index [BMI] 28.0-28.9, adult; F10.10 Alcohol abuse, uncomplicated; Z91.128 Patient's intentional underdosing of medication regimen for other reason; Z79.899 Other long term (current) drug therapy; Z82.3 Family history of stroke
CPT/HCPCS: 96376; 96365; 96366 ×2; 96375; 99291; 36415; 93005; 85379; 80053; 83605; 84484; 85025; 85730; 87040; 71275; G0378; J1644 ×2; J1885; Q9967

== ENCOUNTER 2019-04-13 19:41 | Inpatient (IN) | payer OTHER ==
[2019-04-13] MEDS ORDERED: ONDANSETRON 4 MG/2 ML VIAL IVP STA (20:17)
[2019-04-13] MEDS ORDERED: MORPHINE SULFATE 4 MG/ML SYRINGE IVP STA (20:17)
[2019-04-13] MEDS ORDERED: SODIUM CHLORIDE 0.9% 500 ML 500 ML IV STA (20:17)
[2019-04-13] MEDS ORDERED: SODIUM CHLORIDE 0.9% 1,000 ML IV STA ×2 (20:17)
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
[2019-04-13 20:53] LABS: Basophils # (A) 0.1 k/uL (0-0.2); Basophils % (A) 1 %; Eosinophils % (A) 0 %; HCT 48.9 % (39.0-53.0); HGB 16.9 gm/dL (13.0-17.5); Lymphocytes # (A) 1.6 k/uL (1.0-4.8); Lymphocytes % (A) 19 %; MCH 33.7 pg (25.0-35.0); MCHC 34.6 g/dL (31.0-37.0); MCV 97.4 fL (80.0-100.0); Monocytes # (A) 0.4 k/uL (0-1.0); Monocytes % (A) 4 %; Neutrophils # (A) 6.3 k/uL (1.3-7.7); Neutrophils % (A) 74 %; Platelet Count 217 k/uL (150-450); RBC 5.02 m/uL (4.30-5.90); RDW 12.4 % (11.5-15.5); WBC 8.6 k/uL (3.8-10.6)
[2019-04-13 20:54] LABS: Appearance,Urine Clear (Clear); Bilirubin,Urine Negative (Negative); Blood,Urine Negative (Negative); Color,Urine Yellow; Glucose,Urine (UA) Negative (Negative); Ketones,Urine 1+ (Negative); Leukocyte Esterase,Urine Negative (Negative); Nitrite,Urine Negative (Negative); Protein,Urine Negative (Negative); Specific Gravity,Urine 1.004 (1.001-1.035); Urobilinogen,Urine <2.0 mg/dL (<2.0)
[2019-04-13 21:02] LABS: INR 0.9 (<1.2); Partial Thromboplastin Time 23.6 sec (22.0-30.0)
[2019-04-13 21:12] LABS: ALT 75 U/L (21-72); AST 149 U/L (17-59); African American GFR (CKD) >90 (>60 ml/min/1.73 sqM); Albumin 4.7 g/dL (3.5-5.0); Alkaline Phosphatase 90 U/L (38-126); Anion Gap 13 mmol/L; Blood Urea Nitrogen 7 mg/dL (9-20); Calcium 9.3 mg/dL (8.4-10.2); Carbon Dioxide 22 mmol/L (22-30); Chloride 103 mmol/L (98-107); Creatine Kinase 245 U/L (55-170); Glucose 103 mg/dL (74-99); Magnesium 1.9 mg/dL (1.6-2.3); Phosphorus 3.5 mg/dL (2.5-4.5); Potassium 4.1 mmol/L (3.5-5.1); Sodium 138 mmol/L (137-145); Total Bilirubin 1.8 mg/dL (0.2-1.3); Total Protein 7.6 g/dL (6.3-8.2)
--- NOTE | 2019-04-13 21:54 | CT ---
EXAMINATION TYPE: CT angio chest DATE OF EXAM: 04/13/2019 COMPARISON: CTA chest November 04, 2018 HISTORY: chest pain, nausea, vomiting CT DLP: 582.8 mGycm. Automated Exposure Control for Dose Reduction was Utilized. CONTRAST: CTA scan of the thorax is performed with IV Contrast, patient injected with 100 mL of Isovue 370, pul monary embolism protocol. MIP Images are created on CT scanner and reviewed. FINDINGS: LUNGS: The lungs are grossly clear, there is no concerning parenchymal mass or nodule identified. T here is no pleural effusion or pneumothorax seen. The tracheobronchial tree is patent. MEDIASTINUM: There is suboptimal bolus with an equal contrast in right and left heart systems and het erogeneity but no CT evidence for acute pulmonary embolism. There are no greater than 1 cm hilar or mediastinal lymph nodes. No cardiomegaly or pericardial effusion is seen. OTHER: Please refer to same day CT abdomen and pelvis report for complete details and structures belo w diaphragm. Bilateral subareolar gynecomastia redemonstrated. IMPRESSION: Suboptimal study without CT evidence for acute pulmonary embolism on current study. No amaro spicious acute cardiopulmonary process currently.
--- NOTE | 2019-04-13 21:57 | CT ---
EXAMINATION TYPE: CT abdomen pelvis w con DATE OF EXAM: 04/13/2019 COMPARISON: CT chest abdomen and pelvis August 18, 2018 HISTORY: chest pain, nausea, vomiting. CT DLP: 1163.9 mGycm, Automated Exposure Control for Dose Reduction was Utilized. CONTRAST: CT scan of the abdomen and pelvis is performed with oral and with IV Contrast, patient injected with 100 mL of Isovue 370. FINDINGS: LUNG BASES: Please refer to same day CTA chest report for complete details on lung bases. LIVER/GB: Liver is diffusely low-density consistent with fatty infiltration. Gallbladder has distende d peripheral margins. No surrounding inflammatory change noted. PANCREAS: No significant abnormality is seen. SPLEEN: No significant abnormality is seen. ADRENALS: No significant abnormality is seen. KIDNEYS: No significant abnormality is seen. BOWEL: Suboptimal evaluation bowel without enteric contrast. No suspicious bowel dilatation. PROSTATE/SEMINAL VESICLES: Scattered pelvic phleboliths. LYMPH NODES: No greater than 1cm abdominal or pelvic lymph nodes are appreciated. OSSEOUS STRUCTURES: No significant abnormality is seen. OTHER: No significant additional abnormality is seen. IMPRESSION: No new or acute finding is seen to account for patient's clinical symptoms of pain with nausea and vomiting.
[2019-04-13] MEDS ORDERED: ONDANSETRON 4 MG/2 ML VIAL IVP PRN (22:41)
[2019-04-14] MEDS: MORPHINE SULFATE 2 MG/ML SYRINGE IVP PRN ×5 (02:12→22:22)
[2019-04-14] MEDS: PANTOPRAZOLE 40 MG/10 ML VIAL IVP SCH (08:15)
[2019-04-14] MEDS ORDERED: PANTOPRAZOLE 40 MG/10 ML VIAL IVP SCH (09:00)
[2019-04-14] MEDS ORDERED: APIXABAN 5 MG TAB PO SCH (11:00)
[2019-04-14] MEDS: LACTATED RINGERS 1,000 ML IV SCH ×3 (11:15→23:43)
[2019-04-14 13:50] VITALS: BMI 28.1
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
--- NOTE | 2019-04-14 17:29 | NM ---
EXAMINATION TYPE: NM hepatobiliary w CCK DATE OF EXAM: 04/14/2019 COMPARISON: NONE HISTORY: Abdominal pain TECHNIQUE: After the intravenous administration of 4.4 mCi Tc 99m Mebrofenin hepatobiliary scintigrap hy is performed. Immediate images post injection. FINDINGS: There is prompt uptake of the tracer by the liver that has normal size and contour. There is no focal liver defect. There is tracer in the gallbladder at 36 minutes. There is tracer in the small bowel a t 28 minutes. The post CCK images show gallbladder ejection fraction of 26% which is below the lower limit of epifanio l of 35%. IMPRESSION: Hypokinetic gallbladder ejection fraction of 26%. There is no cystic duct or common bile duct obstruc tion.
[2019-04-14] MEDS ORDERED: LORazepam 2 MG/ML INJ IV PRN ×3 (18:15)
[2019-04-14] MEDS: HEPARIN SODIUM,PORCINE 5,000 UNIT/ML 1 ML VIAL SQ SCH (22:27)
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
[2019-04-14] MEDS: NICOTINE 14MG/24HR PATCH TRANSDERM SCH (23:43)
[2019-04-15] MEDS: MORPHINE SULFATE 2 MG/ML SYRINGE IVP PRN ×4 (03:45→20:55)
[2019-04-15] MEDS: PANTOPRAZOLE 40 MG/10 ML VIAL IVP SCH (08:19)
[2019-04-15] MEDS: HEPARIN SODIUM,PORCINE 5,000 UNIT/ML 1 ML VIAL SQ SCH ×2 (08:19→19:29)
[2019-04-15] MEDS: NICOTINE 14MG/24HR PATCH TRANSDERM SCH (08:19)
[2019-04-15] MEDS: LACTATED RINGERS 1,000 ML IV SCH ×3 (08:19→20:57)
--- NOTE | 2019-04-15 08:39 | US ---
EXAMINATION TYPE: US abdomen limited DATE OF EXAM: 04/15/2019 COMPARISON: 08/29/2018 limited abdominal ultrasound CLINICAL HISTORY: Possible alcoholic hepatitis. Possible hepatitis. EXAM MEASUREMENTS: Liver Length: 19.7 cm Gallbladder Wall: .14 cm CBD: .7 cm Right Kidney: 12.8 x 4.7 x 4.8 cm Pancreas: Obscured by bowel gas Liver: Coarsened echotexture throughout, limiting evaluation for hepatic masses. No focal hepatic mas s is seen. Liver is enlarged. Gallbladder: wnl Evidence for sonographic Klein's sign: No CBD: wnl Right Kidney: wnl IMPRESSION: Hepatomegaly and coarsened hepatic echotexture in keeping with this patient's history of hepatocellular disease. No focal masses seen on today's exam.
[2019-04-15 09:18] LABS: Basophils % (A) 1 %; Eosinophils # (A) 0.1 k/uL (0-0.7); Eosinophils % (A) 2 %; HCT 42.3 % (39.0-53.0); HGB 14.8 gm/dL (13.0-17.5); Lymphocytes # (A) 1.6 k/uL (1.0-4.8); Lymphocytes % (A) 37 %; MCH 34.3 pg (25.0-35.0); MCHC 34.9 g/dL (31.0-37.0); MCV 98.3 fL (80.0-100.0); Mean Platelet Volume 6.6; Monocytes # (A) 0.2 k/uL (0-1.0); Monocytes % (A) 5 %; Neutrophils # (A) 2.3 k/uL (1.3-7.7); Neutrophils % (A) 53 %; Platelet Count 152 k/uL (150-450); RBC 4.31 m/uL (4.30-5.90); WBC 4.3 k/uL (3.8-10.6)
[2019-04-15 09:50] LABS: ALT 66 U/L (21-72); AST 95 U/L (17-59); African American GFR (CKD) >90 (>60 ml/min/1.73 sqM); Albumin 3.5 g/dL (3.5-5.0); Alkaline Phosphatase 75 U/L (38-126); Anion Gap 5 mmol/L; Blood Urea Nitrogen 4 mg/dL (9-20); Calcium 8.6 mg/dL (8.4-10.2); Carbon Dioxide 28 mmol/L (22-30); Chloride 101 mmol/L (98-107); Glucose 83 mg/dL (74-99); Potassium 3.7 mmol/L (3.5-5.1); Sodium 134 mmol/L (137-145); Total Protein 5.8 g/dL (6.3-8.2)
[2019-04-15] MEDS ORDERED: IV FLUID CONTINUATION 1,000 ML IV ONE (15:06)
--- NOTE | 2019-04-15 16:38 | P.PN ---
Progress Note - Text Progress Note Date: 04/15/19 The patient still has right upper quadrant quadrant pain. His HIDA scan is suggestive chronic cholecystitis. He will undergo laparoscopic cholecystectomy.
[2019-04-15] MEDS ORDERED: BUPIVACAINE (PF) 0.25% 30 ML VIAL SQ ONE (17:02)
[2019-04-15] MEDS ORDERED: fentaNYL (PF) 50 MCG/ML 2 ML AMP ONE (17:02)
[2019-04-15] MEDS ORDERED: KETOROLAC 30 MG/ML 1 ML VIAL ONE (17:02)
[2019-04-15] MEDS ORDERED: ONDANSETRON 4 MG/2 ML VIAL ONE (17:02)
[2019-04-15] MEDS ORDERED: NEOSTIGMINE 1 MG/ML 10 ML VIAL ONE (17:02)
[2019-04-15] MEDS ORDERED: SUCCINYLCHOLINE CHLORIDE 100 MG/5 ML SYR IV ONE (17:02)
[2019-04-15] MEDS ORDERED: LIDOCAINE 1% INJ 10MG/ML (20 ML MDV) ONE (17:02)
[2019-04-15] MEDS ORDERED: GLYCOPYRROLATE 0.2 MG/ML 2 ML VIAL ONE (17:02)
[2019-04-15] MEDS ORDERED: PROPOFOL 10 MG/ML 20 ML VIAL IV ONE (17:02)
[2019-04-15] MEDS ORDERED: ROCURONIUM BROMIDE 10 MG/ML 10 ML VIAL IV ONE (17:02)
[2019-04-15] MEDS ORDERED: MIDAZOLAM 2 MG/2 ML VIAL ONE (17:02)
[2019-04-15] MEDS ORDERED: SODIUM CHLORIDE 0.9% 50 ML with ceFAZolin 2,000 MG IV ONE ×2 (17:10)
[2019-04-15] MEDS ORDERED: LACTATED RINGERS 1,000 ML IV ONE ×2 (17:30)
--- NOTE | 2019-04-15 17:49 | P.OP ---
Date of Procedure: 04/15/19 Preoperative Diagnosis: Cholecystitis Postoperative Diagnosis: Cholecystitis Procedure(s) Performed: Laparoscopic cholecystectomy Anesthesia: ALEC Surgeon: Gama Fernandez Estimated Blood Loss (ml): 5 Pathology: other (Gallbladder) Condition: stable Description of Procedure: The patient was placed on the operating table. The patient received a general endotracheal tube anesthesia. The patients abdomen was prepped and draped in the usual sterile fashion. Through an infraumbilical stab incision, the fascia of the anterior abdominal wall was grasped with a pair of Kochers and then the Veress needle was placed in the peritoneal cavity. Position of the Veress needle was confirmed with positive drop test. The abdomen was then insufflated. After adequate insufflation, the 10 mm trocar was placed in the peritoneal cavity. Following this the laparoscope was placed in the peritone al cavity. The patient was placed in the head-up, right side up position and then a 5 mm trocar was placed in the right lateral and right subcostal position under direct visualization. A 8 mm trocar was placed in the epigastric position. The gallbladder appeared to be quite enlarged and hydropic. The gallbladder was grasped in the fundus and infundibulum. Traction on the gallbladder was placed in the lateral and the cephalad positions. The triangle of Calot was visualized.. The cystic duct was bluntly dissected until the union of the cystic duct and common bile duct was seen. A critical view of safety was achieved. The cystic duct was then divided and sealed with the Harmonic scissors. A PDS Endoloop was then placed throughout the cystic duct stump. The cystic artery divided and sealed with the Harmonic scissors. The gallbladder was then removed from the liver bed using Harmonic scissors. The gallbladder was then extracted through the epigastric port site. Operative field was checked for any bleeding spots and Harmonic scissors was used to coagulate the liver bed. The abdomen was irrigated. The trocars were removed. The skin was closed using interrupted 3-0 Vicryl suture. Dermabond dressing were applied. The patient tolerated the procedure well.
[2019-04-15] MEDS ORDERED: HYDROmorphone 1 MG/ML 1 ML SYRINGE IM PRN (17:50)
[2019-04-15 19:23] VITALS: RESP 18; TEMP 98.2
--- NOTE | 2019-04-15 22:35 | P.PN ---
Progress Note - Text Progress Note Date: 04/15/19 Chief Complaint: Nausea vomiting History of presenting complaint: This is a 33-year-old patient of Dr. Prieto. Processes of 5 days of nausea vomiting. Decreased appetite. Some fever and chills. Also having abdominal pain. Patient been drinking excessive alcohol for last 5 years. Does marijuana occasionally. Smokes half a pack a day. Is not employed. Having upper abdominal pain. Did not radiate. Admitted for the same. Admitted with suspected acute cholecystitis. Patient also does drink significant alcohol. Today-saw the patient this morning. Awaiting cholecystectomy. Abdominal pain control. No fever no chills. Review of systems: Was done for constitutional, cardiovascular, GI, pulmonary. relevant finding as above Active Medications Heparin Sodium (Porcine) (Heparin) 5,000 unit SQ Q8HR [facility] Last Admin: 04/15/19 19:29 Dose: Not Given Documented by: Hydromorphone HCl (Dilaudid) 1 mg IM Q3HR PRN PRN Reason: Pain Lactated Ringer's (Lactated Ringers) 1,000 mls @ 150 mls/hr IV .Q6H40M [facility] Last Admin: 04/15/19 20:57 Dose: 150 mls/hr Documented by: Lorazepam (Ativan) 1 mg IV Q2HR PRN PRN Reason: CIWA 8 or 9 Last Admin: 04/14/19 23:51 Dose: 1 mg Documented by: Lorazepam (Ativan) 1 mg IV Q1HR PRN PRN Reason: CIWA 10 to 15 Lorazepam (Ativan) 2 mg IV Q10M PRN PRN Reason: CIWA 16 or higher Stop: 04/16/19 18:15 Morphine Sulfate (Morphine Sulfate (Inj)) 2 mg IVP Q4H PRN PRN Reason: Pain/Discomfort Last Admin: 04/15/19 20:55 Dose: 2 mg Documented by: Nicotine (Habitrol 14mg/24hr Patch) 1 patch TRANSDERM DAILY [facility] Last Admin: 04/15/19 08:19 Dose: 1 patch Documented by: Ondansetron HCl (Zofran) 4 mg IVP Q6HR PRN PRN Reason: Nausea And Vomiting Pantoprazole Sodium (Protonix) 40 mg IVP DAILY [facility] Last Admin: 04/15/19 08:19 Dose: 40 mg Documented by: Physical examination: VITAL SIGNS: 97.9, 82, 18, 123/73, 96% room air GENERAL: Laying in bed. Bun distress EYES: Pupils equal. Conjunctiva normal. HEENT: External appearance of nose and ears normal, oral cavity grossly normal. NECK: JVD not raised; masses not palpable. HEART: First and second heart sounds are normal; no edema. LUNGS: Respiratory rate normal; clear to auscultation. ABDOMEN: Soft, upper abdominal tenderness, no guarding or rigidity, liver spleen not palpable, no masses palpable. PSYCH: [Alert and oriented x3; mood and affect slightly anxious l. INVESTIGATIONS, reviewed in the clinical context: White count 4.3 hemoglobin 14.8 potassium 3.7 creatinine 0.62 Liver ultrasound-hepatomegaly and coarsened hepatic echo structure Previous testing White count 8.6 hemoglobin 16.9 potassium 4.1 creatinine 0.75 lactic acid 3.6 Total bilirubin 1.8 AST [address] chest negative for PE CT abdomen and pelvis-negative HIDA scan-low EF Assessment: -Acute cholecystectomy pending cholecystectomy -Chronic alcohol use -Chronic nicotine dependence -Lactic acidosis type II not from sepsis -alcoholic hepatitis causing hepatomegaly Plan: Care was discussed with the patient. Pending cholecystectomy. Other medications to continue.
[2019-04-16] MEDS: HEPARIN SODIUM,PORCINE 5,000 UNIT/ML 1 ML VIAL SQ SCH ×2 (00:07→09:10)
[2019-04-16] MEDS: MORPHINE SULFATE 2 MG/ML SYRINGE IVP PRN ×3 (01:03→09:18)
[2019-04-16] MEDS: LACTATED RINGERS 1,000 ML IV SCH ×2 (03:07→11:37)
[2019-04-16 07:34] VITALS: BP 134/84; PULSE 82
[2019-04-16] MEDS: PANTOPRAZOLE 40 MG/10 ML VIAL IVP SCH (09:10)
[2019-04-16] MEDS: NICOTINE 14MG/24HR PATCH TRANSDERM SCH (09:11)
[2019-04-16] MEDS ORDERED: HYDROcodone/APAP 5-325MG 1 EACH TAB PO PRN (10:12)
[2019-04-16] MEDS ORDERED: APIXABAN 5 MG TAB PO SCH (12:15)
--- NOTE | 2019-04-16 14:05 | P.PN ---
Subjective Progress Note Date: 04/16/19 CHIEF COMPLAINT: Abdominal pain HISTORY OF PRESENT ILLNESS: Patient is status post laparoscopic cholecystectomy. Patient is doing well postoperatively. Patient reports surgical tenderness but states it is tolerable at this time. He has been tolerating diet without nausea or vomiting. Vital signs have been stable. He is afebrile. PHYSICAL EXAM: VITAL SIGNS: Reviewed. GENERAL: Well-developed in no acute distress. HEENT: No sclera icterus. Extraocular movements grossly intact. Moist buccal mucosa. Head is atraumatic, normocephalic. ABDOMEN: Soft. Nondistended. Appropriate surgical tenderness. Laparoscopic incision sites clean dry and intact. NEUROLOGIC: Alert and oriented. Cranial nerves II through XII grossly intact. ASSESSMENT: 1. Right upper quadrant abdominal pain, cholecystitis, status post laparoscopic cholecystectomy 2. History of DVT PLAN: Patient is stable for discharge home today from a surgical standpoint. Prescription for [place] sent to patient's preferred pharmacy. Patient may resume Eliquis tomorrow 04/17/2019 Patient is to follow up with Dr. Fernandez outpatient Nurse practitioner note has been reviewed by physician. Signing provider agrees with the documented findings, assessment, and plan of care. Objective - Vital Signs Vital signs: Vital Signs Temp 98.2 F 04/16/19 06:00 Pulse 82 04/16/19 06:00 Resp 18 04/16/19 08:00 BP 134/84 04/16/19 06:00 Pulse Ox 96 04/16/19 06:00 Intake & Output 04/15/19 04/16/19 04/16/19 18:59 06:59 18:59 Intake Total 1450 1000 320 Balance 1450 1000 320 Intake: IV 1450 Oral 1000 320 Other: Voiding Method Toilet Toilet # Voids 2 2 - Labs CBC & Chem 7: 04/15/19 08:38 04/15/19 08:38
[2019-04-17] MEDS ORDERED: PANTOPRAZOLE 40 MG TABLET PO SCH (09:00)
--- NOTE | 2019-04-21 12:06 | P.DS ---
Providers Date of admission: 04/15/19 10:10 Expected date of discharge: 04/16/19 Attending physician: Oren Kay Consults: 04/14/19 10:55 Consult Physician Routine Consulting Provider: Gama Fernandez Consult Reason/Comments: abd pain Do you want consulting provider notified?: Yes Primary care physician: Klever Prieto [place] Hospital Course: Chief Complaint: Nausea vomiting Hospital course: This is a 33-year-old patient of Dr. Prieto. Presented with 5 days of nausea vomiting. Decreased appetite. Some fever and chills. Also having abdominal pain. Patient been drinking excessive alcohol for last 5 years. Does marijuana occasionally. Smokes half a pack a day. not employed. Having upper abdominal pain. Did not radiate. Admitted for the same. Admitted with suspected acute cholecystitis. Patient also does drink significant alcohol. Underwent laparoscopic cholecystectomy. Today-take much better. Did tolerate some diet. No nausea vomiting. Up and about. Did discuss with the patient and his liver is enlarged. He needs to completely stop drinking. Told him to follow with GI. Questions were answered. Okay by Dr. Fernandez to be discharged. Discussion and discharge planning more than 35 minutes Consultation: Dr. Fernandez from general surgery Review of systems: Was done for constitutional, cardiovascular, GI, pulmonary. r elevant finding as above Physical examination: VITAL SIGNS: 98.2, 82, 18, 134/84, 96% room air GENERAL: Sitting up, comfortable EYES: Pupils equal. Conjunctiva normal. HEENT: External appearance of nose and ears normal, oral cavity grossly normal. NECK: JVD not raised; masses not palpable. HEART: First and second heart sounds are normal; no edema. LUNGS: Respiratory rate normal; clear to auscultation. ABDOMEN: Soft, minimal tenderness, no guarding or rigidity, liver spleen not palpable, no masses palpable. PSYCH: [Alert and oriented x3; mood and affect slightly anxious l. INVESTIGATIONS, reviewed in the clinical context: White count 4.3 hemoglobin 14.8 potassium 3.7 creatinine 0.62 Liver ultrasound-hepatomegaly and coarsened hepatic echo structure Previous testing White count 8.6 hemoglobin 16.9 potassium 4.1 creatinine 0.75 lactic acid 3.6 Total bilirubin 1.8 AST [address] chest negative for PE CT abdomen and pelvis-negative HIDA scan-low EF Assessment: -Acute cholecystectomy pending cholecystectomy -Chronic alcohol use -Chronic nicotine dependence, cigarette smoker -Lactic acidosis type II not from sepsis -alcoholic hepatitis causing hepatomegaly Disposition: Home on a soft bland diet Patient Condition at Discharge: Stable Plan - Discharge Summary Discharge Rx Participant: No New Discharge Prescriptions: New Hydrocodone/Acetaminophen [[place] 5-325] 1 tab PO Q4HR PRN 3 Days #18 tab PRN Reason: Pain Docusate [Colace] 100 mg PO BID #30 capsule Nicotine 14Mg/24Hr Patch [Habitrol] 1 patch TRANSDERM DAILY #14 patch Melatonin 2 mg PO HS #30 tablet Famotidine [Pepcid] 20 mg PO BID #60 tablet Continue Apixaban [Eliquis] 5 mg PO BID Discharge Medication List Apixaban [Eliquis] 5 mg PO BID 04/13/19 [History] Docusate [Colace] 100 mg PO BID #30 capsule 04/16/19 [Rx] Famotidine [Pepcid] 20 mg PO BID #60 tablet 04/16/19 [Rx] Hydrocodone/Acetaminophen [[place] 5-325] 1 tab PO Q4HR PRN 3 Days #18 tab 04/16/19 [Rx] Melatonin 2 mg PO HS #30 tablet 04/16/19 [Rx] Nicotine 14Mg/24Hr Patch [Habitrol] 1 patch TRANSDERM DAILY #14 patch 04/16/19 [Rx] Follow up Appointment(s)/Referral(s): Klever Prieto DO [Primary Care Provider] - 04/20/19 9:00 am Gama Fernandez MD [STAFF PHYSICIAN] - 04/23/19 3:10 pm Patient Instructions/Handouts: *Surgery [facility] - Laparoscopic Cholecystectomy Discharge Instructions Activity/Diet/Wound Care/Special Instructions: You may resume Eliquis tomorrow, 04/17/[address] while taking [place] No lifting over 10 pounds You may shower. No soaking or tub baths Very light activity until you are reevaluated at your follow up appointment with your surgeon Discharge Disposition: HOME SELF-CARE
== END 2019-04-16 13:11 | disposition home or self-care (01) | DRG 418 ==
LOC: EC 19:41 → 4MS4W 22:41 → OBSVTOIN 04-15 10:10
PROVIDERS: ADMIT Hospitalist; ATTEND Hospitalist
PROC: 0FT44ZZ Resection of Gallbladder, Percutaneous Endoscopic Approach (ICD-10-PCS; principal; 2019-04-15 12:40)
DX: K81.9 Cholecystitis, unspecified (principal); E87.2 Acidosis; K70.10 Alcoholic hepatitis without ascites; E86.0 Dehydration; F17.210 Nicotine dependence, cigarettes, uncomplicated; Z79.01 Long term (current) use of anticoagulants; Z86.718 Personal history of other venous thrombosis and embolism; F32.9 Major depressive disorder, single episode, unspecified; F41.9 Anxiety disorder, unspecified; Z56.0 Unemployment, unspecified; Z82.3 Family history of stroke
CPT/HCPCS: 36415; 71275; 74177; 76705; 78227; 80053; 81003; 82550; 83605; 83690; 83735; 84100; 84484; 85025; 85610; 85730; 88304; 93005; 96361; 96374; 96375; 99285

== ENCOUNTER 2019-06-27 05:33 | Inpatient (IN) | payer MEDICAID, OTHER ==
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
[2019-06-27] MEDS ORDERED: ONDANSETRON 4 MG/2 ML VIAL IVP STA (06:07)
[2019-06-27] MEDS ORDERED: SODIUM CHLORIDE 0.9% 1,000 ML IV STA ×3 (06:07→06:55)
[2019-06-27] MEDS ORDERED: PANTOPRAZOLE 40 MG/10 ML VIAL IVP STA (06:07)
[2019-06-27] MEDS ORDERED: SODIUM CHLORIDE 0.9% 500 ML 500 ML IV STA ×2 (06:07→06:55)
[2019-06-27 06:19] LABS: Amphetamine Screen,Urine Not Detected (NotDetected); Barbiturate Screen,Urine Not Detected (NotDetected); Benzodiazepines Screen,Urine Not Detected (NotDetected); Cocaine Screen,Urine Not Detected (NotDetected); Methadone Screen, Urine Not Detected (NotDetected); Opiate Screen,Urine Not Detected (NotDetected); Oxycodone Screen, Urine Not Detected (NotDetected); Phencyclidine Screen,Urine Not Detected (NotDetected); Tricyclic Antidepressant,Urine Not Detected (NotDetected); Urn Cannabinoid Scrn Not Detected (NotDetected)
[2019-06-27 06:31] LABS: Basophils # (A) 0.1 k/uL (0-0.2); Basophils % (A) 1 %; Eosinophils # (A) 0.2 k/uL (0-0.7); Eosinophils % (A) 3 %; HCT 45.7 % (39.0-53.0); HGB 16.1 gm/dL (13.0-17.5); Lymphocytes # (A) 2.5 k/uL (1.0-4.8); Lymphocytes % (A) 35 %; MCH 34.1 pg (25.0-35.0); MCHC 35.2 g/dL (31.0-37.0); MCV 96.9 fL (80.0-100.0); Mean Platelet Volume 7.7; Monocytes # (A) 0.3 k/uL (0-1.0); Monocytes % (A) 5 %; Neutrophils % (A) 54 %; Platelet Count 217 k/uL (150-450); RBC 4.72 m/uL (4.30-5.90); RDW 11.6 % (11.5-15.5); WBC 7.3 k/uL (3.8-10.6)
[2019-06-27 06:41] LABS: Albumin 4.7 g/dL (3.5-5.0); Calcium 8.8 mg/dL (8.4-10.2); Magnesium 2.2 mg/dL (1.6-2.3); Phosphorus 4.3 mg/dL (2.5-4.5); Potassium 4.1 mmol/L (3.5-5.1); Total Bilirubin 0.4 mg/dL (0.2-1.3); Total Protein 7.6 g/dL (6.3-8.2)
[2019-06-27] MEDS ORDERED: SODIUM CHLORIDE 0.9% 1,000 ML IV ONE (07:36)
--- NOTE | 2019-06-27 07:52 | CT ---
EXAMINATION TYPE: CT abdomen pelvis w con DATE OF EXAM: 06/27/2019 REFERENCE: Previous study dated 04/13/2019. HISTORY: abdominal pain HISTORY: Abdominal pain CT DLP: 1204.9 mGy Automated exposure control for dose reduction was used. TECHNIQUE: Helical acquisition through the abdomen and pelvis was obtained following the oral ingesti on of without Oral Contrast and following intravenous administration of 80 mL of Isovue 300. The data was reformatted in axial, coronal and sagittal projections. FINDINGS: Visualized portions of the lungs are clear. There is no pleural or pericardial fluid. The heart is not enlarged. There is a small, sliding hiatal hernia present. Within the abdomen, the liver is enlarged measuring 22 cm. The gallbladder is been removed. The splee n is unremarkable. Both adrenal glands are normal. Both kidneys demonstrate function and appear morphologically normal. The pancreas is unremarkable. There is no significant retroperitoneal, iliac or inguinal adenopathy. There is mild thickening of the bladder wall. This may be due to lack of distention. There is no significant diverticular change and there is no radiographic evidence of diverticulitis. The appendix is normal. Small bowel loops are of normal caliber. There is no evidence of free fluid or free air. There is a bilateral lysis at L5 without a significant spondylolisthesis. No other bony lesion is see n. IMPRESSION: 1. NO ACUTE INFLAMMATORY PROCESS. 2. NORMAL APPENDIX. 3. NO EVIDENCE OF NEPHROLITHIASIS OR HYDRONEPHROSIS. 4. BILATERAL LYSIS AT L5 WITHOUT EVIDENCE OF SIGNIFICANT SPONDYLOLISTHESIS. 5. THICKENING OF THE BLADDER WALL MAY BE SECONDARY TO LACK OF DISTENTION. PLEASE CORRELATE TO EXCLUDE CYSTITIS. 6. SMALL, SLIDING HIATAL HERNIA.
[2019-06-27] MEDS ORDERED: LORazepam 1 MG TAB PO PRN (18:04)
[2019-06-27] MEDS ORDERED: ZIPRASIDONE 20 MG VIAL IM PRN (18:04)
[2019-06-27] MEDS ORDERED: MAG HYDROX/AL HYDROX/SIMETH 30 ML CUP PO PRN (18:04)
[2019-06-27] MEDS ORDERED: MAGNESIUM HYDROXIDE 2,400 MG/10 ML CUP PO PRN (18:04)
[2019-06-27] MEDS ORDERED: LORazepam 1 MG TAB PO STA (18:20)
[2019-06-28 02:58] LABS: Cholesterol 157 mg/dL (<200); HDL Cholesterol 80 mg/dL (40-60); LDL Cholesterol,Calculated 48 mg/dL (0-99); Triglycerides 147 mg/dL (<150)
[2019-06-28] MEDS: NICOTINE 21MG/24HR PATCH TRANSDERM SCH ×2 (09:29→18:19)
--- NOTE | 2019-06-28 11:14 | P.HP ---
Psychiatric H&P - . H&P Date: 06/28/19 History & Physical: Allergies Allergy/AdvReac Type Severity Reaction Status Date / Time No Known Allergies Allergy Verified 06/27/19 17:09 Vital Signs Temp 97.9 F 06/28/19 06:26 Pulse 93 06/28/19 06:26 Resp 18 06/28/19 06:26 BP 139/97 06/28/19 06:26 Pulse Ox 98 06/27/19 13:00 Laboratory Last Values WBC 7.3 k/uL (3.8-10.6) 06/27/19 06:11 RBC 4.72 m/uL (4.30-5.90) 06/27/19 06:11 Hgb 16.1 gm/dL (13.0-17.5) 06/27/19 06:11 Hct 45.7 % (39.0-53.0) 06/27/19 06:11 MCV 96.9 fL (80.0-100.0) 06/27/19 06:11 MCH 34.1 pg (25.0-35.0) 06/27/19 06:11 MCHC 35.2 g/dL (31.0-37.0) 06/27/19 06:11 RDW 11.6 % (11.5-15.5) 06/27/19 06:11 Plt Count 217 k/uL (150-450) 06/27/19 06:11 Neutrophils % 54 % 06/27/19 06:11 Lymphocytes % 35 % 06/27/19 06:11 Monocytes % 5 % 06/27/19 06:11 Eosinophils % 3 % 06/27/19 06:11 Basophils % 1 % 06/27/19 06:11 Neutrophils # 4.0 k/uL (1.3-7.7) 06/27/19 06:11 Lymphocytes # 2.5 k/uL (1.0-4.8) 06/27/19 06:11 Monocytes # 0.3 k/uL (0-1.0) 06/27/19 06:11 Eosinophils # 0.2 k/uL (0-0.7) 06/27/19 06:11 Basophils # 0.1 k/uL (0-0.2) 06/27/19 06:11 Sodium 147 mmol/L (137-145) H 06/27/19 06:11 Potassium 4.1 mmol/L (3.5-5.1) 06/27/19 06:11 Chloride 107 mmol/L (98-107) 06/27/19 06:11 Carbon Dioxide 30 mmol/L (22-30) 06/27/19 06:11 Anion Gap 10 mmol/L 06/27/19 06:11 BUN 9 mg/dL (9-20) 06/27/19 06:11 Creatinine 1.56 mg/dL (0.66-1.25) H 06/27/19 06:11 Est GFR (CKD-EPI)AfAm 67 (>60 ml/min/1.73 sqM) 06/27/19 06:11 Est GFR (CKD-EPI)NonAf 58 (>60 ml/min/1.73 sqM) 06/27/19 06:11 Glucose 95 mg/dL (74-99) 06/27/19 06:11 Plasma Lactic Acid Alfie 1.8 mmol/L (0.7-2.0) 06/27/19 06:11 Calcium 8.8 mg/dL (8.4-10.2) 06/27/19 06:11 Phosphorus 4.3 mg/dL (2.5-4.5) 06/27/19 06:11 Magnesium 2.2 mg/dL (1.6-2.3) 06/27/19 06:11 Total Bilirubin 0.4 mg/dL (0.2-1.3) 06/27/19 06:11 AST 151 U/L (17-59) H 06/27/19 06:11 ALT 207 U/L (4-49) H 06/27/19 06:11 Alkaline Phosphatase 114 U/L (38-126) 06/27/19 06:11 Total Protein 7.6 g/dL (6.3-8.2) 06/27/19 06:11 Albumin 4.7 g/dL (3.5-5.0) 06/27/19 06:11 Triglycerides 147 mg/dL (<150) 06/27/19 06:11 Cholesterol 157 mg/dL (<200) 06/27/19 06:11 LDL Cholesterol, Calc 48 mg/dL (0-99) 06/27/19 06:11 HDL Cholesterol 80 mg/dL (40-60) H 06/27/19 06:11 Lipase 240 U/L (23-300) 06/27/19 06:11 Urine Opiates Screen Not Detected (NotDetected) 06/27/19 05:43 Ur Oxycodone Screen Not Detected (NotDetected) 06/27/19 05:43 Urine Methadone Screen Not Detected (NotDetected) 06/27/19 05:43 Ur Propoxyphene Screen Not Detected (NotDetected) 06/27/19 05:43 Ur Barbiturates Screen Not Detected (NotDetected) 06/27/19 05:43 U Tricyclic Antidepress Not Detected (NotDetected) 06/27/19 05:43 Ur Phencyclidine Scrn Not Detected (NotDetected) 06/27/19 05:43 Ur Amphetamines Screen Not Detected (NotDetected) 06/27/19 05:43 U Methamphetamines Scrn Not Detected (NotDetected) 06/27/19 05:43 U Benzodiazepines Scrn Not Detected (NotDetected) 06/27/19 05:43 Urine Cocaine Screen Not Detected (NotDetected) 06/27/19 05:43 U Marijuana (THC) Screen Not Detected (NotDetected) 06/27/19 05:43 Serum Alcohol 224 mg/dL H* 06/27/19 06:11 06/28/19 11:04 IDENTIFYING DATA: 33-year-old single male patient HPI: Patient admitted to the inpatient psychiatric unit [facility] voluntary basis. He states that he has been feeling depressed just about daily for months now with low energy and not much interest in things. He says he has not been sleeping much and admits to a lot of anxiety. He states he's been hearing voices on and off which is like a complicated conversation even when he is not drinking. He also said he's had bad anger. He has been using alcohol daily lately says he got into an argument with a friend of his. He was having thoughts of suicide, relays either that or someone else and came into the hospital. He reports that he was having thoughts of harm to others in general not intent to harm a specific person. He admits to experiencing some alcohol withdrawal symptoms. PAST PSYCHIATRIC HISTORY: Most recent medications he states her Seroquel 100 mg at bedtime and Cymbalta which worked for him. He states he's had close to 5 inpatient psychiatric admissions. He's had 3 suicide attempts which were overdoses. He says he has had diagnosis of bipolar disorder. He does give a history of hallucinations. No active outpatient treatment. PMH: Cholecystectomy, neuropathy, blood clots ALLERGIES: No known ALLERGIES MEDICATIONS: Tylenol when necessary, Maalox when necessary, Ativan when necessary, milk of Magnesia when necessary, Habitrol patch, Geodon when necessary CHEMICAL DEPENDENCY HISTORY: Patient reports that he's been drinking alcohol daily lately. He has been to rehab twice in the past and does have some desire to go back to rehab. He denies any other current drug use. FAMILY PSYCHIATRIC HISTORY: Dad and mom both with bipolar disorder FAMILY CHEMICAL DEPENDENCY HISTORY: None verbalized SOCIAL HISTORY: Currently living with a friend in the home. He's never been , has 2 children. Relates he does not really have a current relationshi p. No current job. MENTAL STATUS EXAM: He is alert and cooperative with the interview. His speech is fluent, not rapid or pressured. Thought processes are organized. His mood is described as "sucks." He denies any current hallucinations. He denies any current thoughts of suicide and denies any thoughts of harm to others right now. He does not show any current significant agitation. I do not note any significant disorientation or memory disturbance. His insight is adequate, judgment shows evidence of recent impairment. STRENGTHS/WEAKNESSES: Strengthsseeking treatment; weaknessessubstance use, coping skills, not in active treatment INTELLECTUAL FUNCTIONING: Average IMPRESSIONS: Bipolar disorder depressed with psychosis versus schizoaffective disorder bipolar type; alcohol use disorder; unspecified anxiety disorder PLAN: Patient will be admitted to the inpatient psychiatric unit [facility] on a voluntary basis. He'll be on SP 15 minute precautions. He'll participate in group and activity therapies. Baseline laboratory workup will be done the patient and medical consultation will be ordered. We'll reinitiate Seroquel to help prevent/treat any psychosis symptoms and help with mood stability 100 mg at bedtime. This should also help with his insomnia. We'll also reinitiate Cymbalta 30 mg daily to help with depressive and anxiety components. We will look into any support systems. Estimated length of stay is 3-5 days. Prognosis is guarded. Ativan prn is ordered to help with alcohol withdrawal symptomatology. We'll continue to monitor his vitals.
[2019-06-28] MEDS: DULoxetine HCL 30 MG CAPSULE.DR PO SCH (11:41)
[2019-06-28] MEDS: FOLIC ACID 1 MG TAB PO SCH (11:41)
[2019-06-28] MEDS: THIAMINE 100 MG TAB PO SCH (11:41)
[2019-06-28] MEDS: LORazepam 1 MG TAB PO PRN ×2 (11:42→18:17)
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
[2019-06-28] MEDS ORDERED: SODIUM CHLORIDE 0.9% 1,000 ML IV SCH (17:30)
[2019-06-28 18:20] LABS: African American GFR (CKD) >90 (>60 ml/min/1.73 sqM); Anion Gap 6 mmol/L; Blood Urea Nitrogen 16 mg/dL (9-20); Carbon Dioxide 27 mmol/L (22-30); Chloride 104 mmol/L (98-107); Glucose 109 mg/dL (74-99); Non-African American GFR(CKD) >90 (>60 ml/min/1.73 sqM); Potassium 4.3 mmol/L (3.5-5.1); Sodium 137 mmol/L (137-145)
[2019-06-28] MEDS: QUEtiapine 100 MG TAB PO SCH (21:00)
[2019-06-29] MEDS: NICOTINE 21MG/24HR PATCH TRANSDERM SCH (08:51)
[2019-06-29] MEDS: DULoxetine HCL 30 MG CAPSULE.DR PO SCH (08:51)
[2019-06-29] MEDS: THIAMINE 100 MG TAB PO SCH (08:51)
[2019-06-29] MEDS: FOLIC ACID 1 MG TAB PO SCH (08:51)
[2019-06-29 09:56] LABS: Hemoglobin A1C 4.7 % (4.0-6.0)
--- NOTE | 2019-06-29 12:51 | P.PN ---
Subjective Progress Note Date: 06/29/19 Chief complaint: "I have had better days " Subjective: The patient has been seen today as follow-up, chart reviewed, case discussed with the treatment team. Patient has been withdrawn and isolative. The patient reports that he has not been going to any unit activities and groups. The patient complained of racing thoughts and poor concentration. He also reports feeling increasingly anxious. The patient reports improved sleep with the help of the medications. The patient reports that he does not own thing that [employer] has been working for him. The patient denies any auditory or visual hallucinations at this time. He reports vague paranoid ideations. He denies any active suicidal or homicidal ideations at this time. The patient is compliant with his medications and denies any adverse reactions. Objective - Vital Signs Vital signs: Vital Signs Temp 97.8 F 06/29/19 06:36 Pulse 68 06/29/19 06:36 Resp 6 L 06/29/19 06:36 BP 119/66 06/29/19 06:36 Pulse Ox 98 06/29/19 06:36 - Exam Objective: Vitals has been reviewed. Mental status examination; Appearance: The patient appears stated age, casually dressed, no specific features. Gait/posture: Normal gait, Normal arm swinging: No abnormal movements. Attitude and behavior: engaged, cooperative, eye contact. Motor activity: Normal psychomotor activity Speech: Rapid and hyperverbal. Mood: Anxious, depressed. Affect: Constricted Thought form: goal-directed, linear, coherent. Thought content: Non-delusional, denies suicidal thoughts, but reports feeling hopeless, denies homicidal thoughts, denies intentions or plans. Perception: Denies any auditory or visual hallucinations Orientation: Patient patient was fully oriented to time place person and situation. Insight: Patient has limited insight about his psychiatric disorder. Judgment: Patient has limited judgment about his psychiatric treatment. - Labs CBC & Chem 7: 06/27/19 06:11 06/28/19 17:50 Labs: Abnormal Lab Results - Last 24 Hours (Table) 06/28/19 Range/Units 17:50 Glucose 109 H (74-99) mg/dL Assessment and Plan Assessment: Bipolar disorder depressed with psychosis versus schizoaffective disorder bipolar type; alcohol use disorder; unspecified anxiety disorder Plan: Plan: Continue inpatient level of care due to need for further stabilization on medications Precautions: Continue 15 minutes check for safety. Consults internal medicine team for management of medical problems. Provide the patient individual, group therapy, substance use disorder counseling to give better insight and learn coping skills. Medications: Discontinue Cymbalta. Start carbamazepine 100 mg by mouth twice a day. Start Neurontin 300 mg by mouth 3 times a day. Discharge patient to OUTPATIENT services upon a stabilization Expected LOS: 3-5 days
[2019-06-29] MEDS: GABAPENTIN 300 MG CAP PO SCH ×2 (16:35→21:22)
[2019-06-29] MEDS: LORazepam 1 MG TAB PO PRN (16:35)
[2019-06-29] MEDS: NICOTINE POLACRILEX 2 MG GUM BUCCAL PRN ×2 (16:35→21:22)
[2019-06-29] MEDS: ACETAMINOPHEN TAB 325 MG TAB PO PRN (16:35)
[2019-06-29] MEDS: carBAMazepine 100 MG TAB.ER.12H PO SCH (21:22)
[2019-06-29] MEDS: QUEtiapine 100 MG TAB PO SCH (21:22)
[2019-06-30] MEDS: carBAMazepine 100 MG TAB.ER.12H PO SCH (09:01)
[2019-06-30] MEDS: GABAPENTIN 300 MG CAP PO SCH (09:01)
[2019-06-30] MEDS: FOLIC ACID 1 MG TAB PO SCH (09:01)
[2019-06-30] MEDS: NICOTINE POLACRILEX 2 MG GUM BUCCAL PRN ×3 (09:01→21:18)
[2019-06-30] MEDS: THIAMINE 100 MG TAB PO SCH (09:01)
[2019-06-30] MEDS: NICOTINE 21MG/24HR PATCH TRANSDERM SCH (09:02)
[2019-06-30] MEDS ORDERED: QUEtiapine 25 MG TAB PO PRN (11:42)
--- NOTE | 2019-06-30 11:47 | P.PN ---
Subjective Progress Note Date: 06/30/19 The patient was seen in the chart was reviewed. The patient continues to report feeling depressed and anxious. He reports feeling less withdrawn and has been attending milieu therapy. The patient has visible on the unit. The patient denies any crying spells but continues to report feeling anxious all the time. The patient also reports poor sleep with frequent awakenings during the night. The patient denies any auditory or visual. He denies any active suicidal or homicidal ideations at this time. He continues to report racing thoughts and feeling agitated and irritable. The patient reports compliance with the medication and denies any side effects on them Objective - Vital Signs Vital signs: Vital Signs Temp 97.4 F L 06/30/19 06:05 Pulse 73 06/30/19 06:05 Resp 16 06/30/19 06:05 BP 116/57 06/30/19 06:05 Pulse Ox 98 06/30/19 06:05 Intake & Output 06/29/19 06/30/19 06/30/19 18:59 06:59 18:59 Weight 99.79 kg - Exam Objective: Vitals has been reviewed. Mental status examination; Appearance: The patient appears stated age, casually dressed, no specific features. Gait/posture: Normal gait, Normal arm swinging: No abnormal movements. Attitude and behavior: engaged, cooperative, eye contact. Motor activity: Normal psychomotor activity Speech: Rapid and hyperverbal. Mood: Anxious, depressed. Affect: Constricted Thought form: goal-directed, linear, coherent. Thought content: Non-delusional, denies suicidal thoughts, but reports feeling hopeless, denies homicidal thoughts, denies intentions or plans. Perception: Denies any auditory or visual hallucinations Orientation: Patient patient was fully oriented to time place person and situation. Insight: Patient has limited insight about his psychiatric disorder. Judgment: Patient has limited judgment about his psychiatric treatment. - Labs CBC & Chem 7: 06/27/19 06:11 06/28/19 17:50 Assessment and Plan Assessment: Bipolar disorder depressed with psychosis versus schizoaffective disorder bipolar type; alcohol use disorder; unspecified anxiety disorder Plan: Plan: Continue inpatient level of care due to need for further stabilization on medications Precautions: Continue 15 minutes check for safety. Consults internal medicine team for management of medical problems. Provide the patient individual, group therapy, substance use disorder counseling to give better insight and learn coping skills. Medications: Discontinue Cymbalta. Increase carbamazepine 200 mg by mouth twice a day. Increase Neurontin 400 mg by mouth 3 times a day. Increase Seroquel to 150 mg by mouth daily at bedtime and 25 mg by mouth 3 times a day when necessary. Discharge patient to OUTPATIENT services upon a stabilization Expected LOS: 3-5 days
[2019-06-30] MEDS: GABAPENTIN 400 MG CAP PO SCH ×2 (15:58→21:15)
[2019-06-30] MEDS: LORazepam 1 MG TAB PO PRN ×2 (16:02→22:03)
[2019-06-30] MEDS ORDERED: QUEtiapine 50 MG TAB PO SCH (21:00)
[2019-06-30] MEDS: ACETAMINOPHEN TAB 325 MG TAB PO PRN (21:17)
[2019-07-01] MEDS: FOLIC ACID 1 MG TAB PO SCH (08:59)
[2019-07-01] MEDS: THIAMINE 100 MG TAB PO SCH (09:00)
[2019-07-01] MEDS: GABAPENTIN 400 MG CAP PO SCH ×3 (09:00→21:01)
[2019-07-01] MEDS: LORazepam 1 MG TAB PO PRN ×3 (09:01→22:06)
[2019-07-01] MEDS: NICOTINE POLACRILEX 2 MG GUM BUCCAL PRN ×2 (09:03→16:10)
--- NOTE | 2019-07-01 12:10 | P.PN ---
Subjective Progress Note Date: 07/01/19 The patient was seen in the chart was reviewed. The case was discussed with the staff on the unit. The patient reports doing the same. He continues to report feeling depressed and anxious. He reports auditory hallucinations telling him to kill himself and hurt others. The patient denies any intentions or plans to harm himself or anyone else. He continues to report feeling anxious and having racing thoughts. The patient reports poor concentration and short attention span. He has been isolating himself in his room. The patient has been superficially pleasant and cooperative during the session. He denies any active suicidal thoughts at this time. The patient has been tolerating medications without any side effects and has been compliant and cooperative with the treatment. Objective - Vital Signs Vital signs: Vital Signs Temp 97.7 F 07/01/19 06:45 Pulse 63 07/01/19 06:45 Resp 16 07/01/19 06:45 BP 102/59 07/01/19 06:45 Pulse Ox 98 06/30/19 06:05 - Exam Objective: Vitals has been reviewed. Mental status examination; Appearance: The patient appears stated age, casually dressed, no specific features. Gait/posture: Normal gait, Normal arm swinging: No abnormal movements. Attitude and behavior: engaged, cooperative, eye contact. Motor activity: Normal psychomotor activity Speech: Rapid and hyperverbal. Mood: Anxious, depressed. Affect: Constricted Thought form: goal-directed, linear, coherent. Thought content: Non-delusional, denies suicidal thoughts, but reports feeling hopeless, denies homicidal thoughts, denies intentions or plans. Perception: Denies any auditory or visual hallucinations Orientation: Patient patient was fully oriented to time place person and situation. Insight: Patient has limited insight about his psychiatric disorder. Judgment: Patient has limited judgment about his psychiatric treatment. - Labs CBC & Chem 7: 06/27/19 06:11 06/28/19 17:50 Assessment and Plan Assessment: Bipolar disorder depressed with psychosis versus schizoaffective disorder bipolar type; alcohol use disorder; unspecified anxiety disorder Plan: Plan: Continue inpatient level of care due to need for further stabilization on medications Precautions: Continue 15 minutes check for safety. Consults internal medicine team for management of medical problems. Provide the patient individual, group therapy, substance use disorder counseling to give better insight and learn coping skills. Medications: Increase Carbamazepine 300 mg by mouth twice a day. Continue Neurontin 400 mg by mouth 3 times a day. Increase Seroquel to 200 mg by mouth daily at bedtime and 25 mg by mouth 3 times a day when necessary. Discharge patient to OUTPATIENT services upon a stabilization Expected LOS: 3-5 days
[2019-07-01] MEDS: ACETAMINOPHEN TAB 325 MG TAB PO PRN (12:27)
[2019-07-01] MEDS ORDERED: QUEtiapine 200 MG TAB PO SCH (21:00)
[2019-07-01] MEDS: carBAMazepine 100 MG TAB.ER.12H PO SCH (21:01)
[2019-07-02] MEDS: carBAMazepine 100 MG TAB.ER.12H PO SCH ×2 (09:01→20:54)
[2019-07-02] MEDS: GABAPENTIN 400 MG CAP PO SCH (09:01)
[2019-07-02] MEDS: FOLIC ACID 1 MG TAB PO SCH (09:01)
[2019-07-02] MEDS: NICOTINE POLACRILEX 2 MG GUM BUCCAL PRN ×2 (09:02→16:17)
[2019-07-02] MEDS: THIAMINE 100 MG TAB PO SCH (09:02)
[2019-07-02] MEDS: LORazepam 1 MG TAB PO PRN ×2 (09:02→16:17)
[2019-07-02] MEDS: ACETAMINOPHEN TAB 325 MG TAB PO PRN ×2 (09:02→16:17)
--- NOTE | 2019-07-02 11:45 | P.PN ---
Subjective Progress Note Date: 07/02/19 The patient was seen in the chart was reviewed. The case was discussed with staff and team. The patient reports doing okay but complained of poor sleep last night. He continues to report racing thoughts and auditory hallucinations although reports some improvement and the auditory hallucinations. The patient remained withdrawn and isolative on the unit and does not participate in unit activities. The patient reports dysphoric mood. The patient denies any crying spells or panic attacks. He is somewhat somatically focused today. He denies any active suicidal or homicidal ideations but reports feelings of hopelessness and helplessness. The patient has been compliant with the medications and has been tolerating medications without any side effects. Objective - Vital Signs Vital signs: Vital Signs Temp 97.8 F 07/02/19 01:24 Pulse 111 H 07/02/19 01:24 Resp 16 07/02/19 01:24 BP 102/56 07/02/19 01:24 Pulse Ox 98 06/30/19 06:05 - Exam Objective: Vitals has been reviewed. Mental status examination; Appearance: The patient appears stated age, casually dressed, no specific features. Gait/posture: Normal gait, Normal arm swinging: No abnormal movements. Attitude and behavior: engaged, cooperative, eye contact. Motor activity: Normal psychomotor activity Speech: Rapid and hyperverbal. Mood: Anxious, depressed. Affect: Constricted Thought form: goal-directed, linear, coherent. Thought content: Non-delusional, denies suicidal thoughts, but reports feeling hopeless, denies homicidal thoughts, denies intentions or plans. Perception: Denies any auditory or visual hallucinations Orientation: Patient patient was fully oriented to time place person and situation. Insight: Patient has limited insight about his psychiatric disorder. Judgment: Patient has limited judgment about his psychiatric treatment. - Labs CBC & Chem 7: 06/27/19 06:11 06/28/19 17:50 Assessment and Plan Assessment: Bipolar disorder depressed with psychosis versus schizoaffective disorder bipolar type; alcohol use disorder; unspecified anxiety disorder Plan: Plan: Continue inpatient level of care due to need for further stabilization on medications Precautions: Continue 15 minutes check for safety. Consults internal medicine team for management of medical problems. Provide the patient individual, group therapy, substance use disorder counseling to give better insight and learn coping skills. Medications: Continue Carbamazepine 300 mg by mouth twice a day. Increase Neurontin 600 mg by mouth 3 times a day. Increase Seroquel to 300 mg by mouth daily at bedtime and 25 mg by mouth 3 times a day when necessary. Will check CBC. Discharge patient to OUTPATIENT services upon a stabilization Expected LOS: 3-5 days
[2019-07-02 13:04] LABS: ALT 295 U/L (4-49); AST 145 U/L (17-59)
[2019-07-02] MEDS: GABAPENTIN 300 MG CAP PO SCH ×2 (16:17→20:54)
[2019-07-02] MEDS ORDERED: QUEtiapine 100 MG TAB PO SCH (21:00)
[2019-07-03] MEDS: carBAMazepine 100 MG TAB.ER.12H PO SCH ×2 (08:50→21:22)
[2019-07-03] MEDS: THIAMINE 100 MG TAB PO SCH (08:50)
[2019-07-03] MEDS: FOLIC ACID 1 MG TAB PO SCH (08:50)
[2019-07-03] MEDS: GABAPENTIN 300 MG CAP PO SCH ×3 (08:51→21:22)
[2019-07-03 08:55] LABS: Basophils # (A) 0.1 k/uL (0-0.2); Basophils % (A) 1 %; Eosinophils # (A) 0.1 k/uL (0-0.7); Eosinophils % (A) 2 %; HCT 47.2 % (39.0-53.0); HGB 15.6 gm/dL (13.0-17.5); Lymphocytes # (A) 2.3 k/uL (1.0-4.8); Lymphocytes % (A) 32 %; MCH 33.5 pg (25.0-35.0); MCHC 32.9 g/dL (31.0-37.0); MCV 101.6 fL (80.0-100.0); Mean Platelet Volume 8.3; Monocytes # (A) 0.6 k/uL (0-1.0); Monocytes % (A) 8 %; Neutrophils % (A) 55 %; Platelet Count 182 k/uL (150-450); RBC 4.65 m/uL (4.30-5.90); RDW 12.1 % (11.5-15.5); WBC 7.2 k/uL (3.8-10.6)
--- NOTE | 2019-07-03 11:52 | P.PN ---
Subjective Progress Note Date: 07/03/19 The patient was seen in the chart was reviewed. The patient continues to complain of poor sleep at night and reports frequent awakenings during the night. He reports feeling tired during the day. The patient has been compliant with the medication but does not attend group therapy. The patient reports i mprovement in auditory hallucinations and anxiety. He continues to report periods of dysphoric mood. He denies any crying spells or panic attacks. The patient denies any symptoms of withdrawals from alcohol. The patient reports significant improvement in racing thoughts. He denies any active suicidal or homicidal ideations at this time. The patient denies any side effects on the medications. Objective - Vital Signs Vital signs: Vital Signs Temp 97.6 F 07/03/19 06:08 Pulse 97 07/03/19 06:08 Resp 15 07/03/19 06:08 BP 104/64 07/03/19 06:08 Pulse Ox 98 06/30/19 06:05 - Exam Objective: Vitals has been reviewed. Mental status examination; Appearance: The patient appears stated age, casually dressed, no specific features. Gait/posture: Normal gait, Normal arm swinging: No abnormal movements. Attitude and behavior: engaged, cooperative, eye contact. Motor activity: Normal psychomotor activity Speech: Goal directed and logical Mood: Anxious, depressed. Affect: Constricted Thought form: goal-directed, linear, coherent. Thought content: Non-delusional, denies suicidal thoughts, but reports feeling hopeless, denies homicidal thoughts, denies intentions or plans. Perception: Denies any auditory or visual hallucinations Orientation: Patient patient was fully oriented to time place person and situation. Insight: Patient has limited insight about his psychiatric disorder. Judgment: Patient has limited judgment about his psychiatric treatment. - Labs CBC & Chem 7: 07/03/19 08:09 06/28/19 17:50 Labs: Abnormal Lab Results - Last 24 Hours (Table) 07/02/19 07/03/19 Range/Units 12:27 08:09 MCV 101.6 H (80.0-100.0) fL AST 145 H (17-59) U/L ALT 295 H (4-49) U/L Assessment and Plan Assessment: Bipolar disorder depressed with psychosis versus schizoaffective disorder bipolar type; alcohol use disorder; unspecified anxiety disorder Plan: Plan: Continue inpatient level of care due to need for further stabilization on medications Precautions: Continue 15 minutes check for safety. Consults internal medicine team for management of medical problems. Provide the patient individual, group therapy, substance use disorder counseling to give better insight and learn coping skills. Medications: Continue Carbamazepine 300 mg by mouth twice a day. Continue Neurontin 600 mg by mouth 3 times a day. Increase Seroquel to 400 mg by mouth daily at bedtime and 25 mg by mouth 3 times a day when necessary. Start trazodone 50 mg by mouth daily at bedtime Lab results were reviewed and discussed with the patient. Plan to do Tegretol level next week and adjust the dose as needed. Discharge patient to OUTPATIENT services upon a stabilization Expected LOS: 3-5 days
[2019-07-03] MEDS: NICOTINE POLACRILEX 2 MG GUM BUCCAL PRN ×2 (13:42→21:22)
[2019-07-03 14:25] VITALS: BMI 28.2
[2019-07-03] MEDS ORDERED: traZODone HCL 50 MG TAB PO SCH (21:00)
[2019-07-03] MEDS ORDERED: QUEtiapine 400 MG TAB PO SCH (21:00)
[2019-07-04] MEDS: THIAMINE 100 MG TAB PO SCH (08:42)
[2019-07-04] MEDS: FOLIC ACID 1 MG TAB PO SCH (08:42)
[2019-07-04] MEDS: GABAPENTIN 300 MG CAP PO SCH ×3 (08:43→21:29)
[2019-07-04] MEDS: carBAMazepine 100 MG TAB.ER.12H PO SCH ×2 (08:43→20:27)
[2019-07-04] MEDS ORDERED: traZODone HCL 50 MG TAB PO PRN (09:13)
--- NOTE | 2019-07-04 09:19 | P.PN ---
Progress Note - Text Interval history: The patient is found in his room he follows me to an interview room. He was admitted for having suicidal ideation in the context of alcohol use disorder. He has been placed on Tegretol for mood stabilization as well Seroquel. He states he was concern last evening because his blood pressure had dropped and he felt uncomfortable. Sleep was compromised as a result. We reviewed that he is getting Seroquel as well as the trazodone. We discussed reducing the Seroquel to 300 mg and making the trazodone as needed. He also discusses some discomfort he having his right lower extremity. He does have a history DVT. He states he is noticing some pain and that portion of his leg feels "hard". He does have a history of being on a blood thinner and wonders if he should be restarted. I did review internal medicine's note. They did not restart that medicine because he was asymptomatic at the time. We will contact them again to report his current symptoms. Mental status exam: The patient's male appearing his stated age. He is dressed in his own clothing he has fair hygiene grooming's impaired. Eye contacts appropriate he is pleasant cooperative easily directable. He reports current hopelessness thinking with some suicidal thoughts but feels that they're getting better and he feels safe in the hospital. He is reporting no thoughts of harming others. He endorses no auditory or visual hallucinations or any specific delusions. He reports no specific delusions. He demonstrates no tangential thinking loose associations or flight of ideas he does not appear hypomanic or manic. Affect is constricted throughout the session. He demonstrates no verbal or physical aggressiveness he demonstrates no involuntary repetitive movements. Insight and judgment limited but slowly improving. Plan: The patient will continue on his current medications however we will reduce the Seroquel to 300 mg at bedtime and make the trazodone as needed. We will contact internal medicine to reports symptoms he is describing in his right lower extremity. Vital signs reviewed. He is encouraged to participate in the milieu. It appears arrangements have been made for him to attend inpatient chemical dependency treatment on the at [facility].
[2019-07-04] MEDS: NICOTINE POLACRILEX 2 MG GUM BUCCAL PRN ×2 (13:44→21:30)
[2019-07-04] MEDS: ACETAMINOPHEN TAB 325 MG TAB PO PRN (15:11)
--- NOTE | 2019-07-04 15:43 | US ---
EXAMINATION TYPE: US venous doppler duplex LE DATE OF EXAM: 07/04/2019 2:23 PM COMPARISON: NONE CLINICAL HISTORY: R/O DVT. 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 SIDE PERFORMED: Bilateral TECHNIQUE: The lower extremity deep venous system is examined utilizing real time linear array sonog neela with graded compression, doppler sonography and color-flow sonography. VESSELS IMAGED: External Iliac Vein (EIV) Common Femoral Vein Deep Femoral Vein Greater Saphenous Vein * Femoral Vein Popliteal Vein Small Saphenous Vein * Proximal Calf Veins (* superficial vessels) Right Leg: Some internal echoes noted within right FV, otherwise all vessels compressible and good c olor flow, probable chronic process seen. Left Leg: Appears negative for DVT IMPRESSION: There is possible minimal chronic deep venous thrombosis in the right femoral vein. No ev idence of acute deep venous thrombosis.
[2019-07-04] MEDS: APIXABAN 5 MG TAB PO SCH (20:27)
[2019-07-04] MEDS: QUEtiapine 100 MG TAB PO SCH (20:27)
[2019-07-05] MEDS: carBAMazepine 100 MG TAB.ER.12H PO SCH ×2 (08:51→21:26)
[2019-07-05] MEDS: FOLIC ACID 1 MG TAB PO SCH (08:52)
[2019-07-05] MEDS: THIAMINE 100 MG TAB PO SCH (08:52)
[2019-07-05] MEDS: APIXABAN 5 MG TAB PO SCH ×2 (08:52→21:25)
[2019-07-05] MEDS: GABAPENTIN 300 MG CAP PO SCH ×3 (08:53→21:24)
--- NOTE | 2019-07-05 11:50 | P.PN ---
Progress Note - Text Interval history: The patient is found in his room he follows me to an interview room. He indicates his mood is stabilizing.. He was able to sleep. His Doppler did demonstrate possible evidence of a chronic DVT in the femoral vein. He was placed back on the blood thinner. We reviewed his psychotropic medications. His questions were answered. He is scheduled to attend inpatient chemical dependency treatment on Saturday. Mental status exam: The patient is alert he is pleasant cooperative he is dressed in his own clothing hygiene grooming adequate. Speech is fluent spontaneous nonpressured. He is reporting no suicidal ideation intent or plan. He is reporting no homicidal ideation intent or plan. There is no evidence of psychosis. He states intermittently he will hear a voice. We discussed that we would expect that phenomenon to resolve. He demonstrates no verbal or physical aggressiveness. He demonstrates no involuntary repetitive movements. Insight and judgment grossly intact. He is oriented to person place and date. Plan: The patient will continue on his current psychotropic medication. Vital signs reviewed. He is encouraged to fully participate in the milieu.
[2019-07-05] MEDS: NICOTINE POLACRILEX 2 MG GUM BUCCAL PRN ×2 (15:21→21:27)
[2019-07-05] MEDS: ACETAMINOPHEN TAB 325 MG TAB PO PRN (15:22)
[2019-07-05] MEDS: QUEtiapine 100 MG TAB PO SCH (21:24)
[2019-07-06] MEDS: carBAMazepine 100 MG TAB.ER.12H PO SCH ×2 (08:52→20:57)
[2019-07-06] MEDS: FOLIC ACID 1 MG TAB PO SCH (08:52)
[2019-07-06] MEDS: THIAMINE 100 MG TAB PO SCH (08:52)
[2019-07-06] MEDS: APIXABAN 5 MG TAB PO SCH ×2 (08:52→20:57)
[2019-07-06] MEDS: NICOTINE POLACRILEX 2 MG GUM BUCCAL PRN ×3 (08:52→21:00)
[2019-07-06] MEDS: GABAPENTIN 300 MG CAP PO SCH ×3 (08:52→20:58)
--- NOTE | 2019-07-06 13:24 | P.PN ---
Subjective Progress Note Date: 07/06/19 Principal diagnosis: Alcohol use disorder severe, alcohol withdrawal resolved, mood disorder secondary to alcohol use disorder, alcohol induced psychotic disorder I reviewed the medical record, interviewed the patient and discussed his treatment and treatment plan during team meeting. He presented to the unit acutely intoxicated, complaining of auditory hallucinations and homicidal ideation. He described "friend" as a target of his homicidal ideation. He complained of continued auditory hallucinations. He denied thoughts of or suicide. He also denied having homicidal thoughts. He is scheduled for admission to [facility] on 07/08/2019 with treatment of his alcohol use disorder. He was vague about the nature and frequency of the reported auditory hallucinat ions but described an experience consistent with true auditory perceptual experiences. Objective - Vital Signs Vital signs: Vital Signs Temp 97.9 F 07/06/19 00:14 Pulse 114 H 07/06/19 00:10 Resp 16 07/06/19 00:10 BP 113/53 07/06/19 00:10 Pulse Ox 97 07/06/19 00:10 Intake & Output 07/05/19 07/06/19 07/06/19 18:59 06:59 18:59 Weight 105.6 kg - Exam He presented as a tall casually groomed male who was pleasant on approach. He was unshaven. He was able to concentrate on interview. He showed no disorder of psychomotor activity. He was not tremulous, anxious or diaphoretic. His affect was blunted but bright. His speech was spontaneous, fluent and organized. He described experiencing "voices" but did not appear to be responding to internal stimuli. He denied suicidal ideation, intent or plan. He denied homicidal ideation, intent or plan. - Labs CBC & Chem 7: 07/03/19 08:09 06/28/19 17:50 Assessment and Plan Assessment: He has no signs or symptoms of acute alcohol withdrawal. He continues to report subjective hallucinatory experiences do not apparent during the interview. He denied experiencing homicidal or suicidal ideation. Plan: Plan for discharge on 07/07/2019 was admission to [facility] on 07/08/2019. Continued Eliquis 5mg BID for the treatment of apparent DVT as recommended by the residential solar sales consultant hospitalist. Continue Tegretol-XR 3 mg twice a day, Neurontin 600 mg by mouth 3 times a day, Nicorette gum 2 mg every 2 hours when necessary, Seroquel 25 mg by mouth 3 times a day and 2 mg at bedtime, thiamine 100 mg daily and Desyrel 50 mg at bedtime when necessary for sleep.
[2019-07-06] MEDS: ACETAMINOPHEN TAB 325 MG TAB PO PRN (15:45)
[2019-07-06] MEDS: QUEtiapine 100 MG TAB PO SCH (20:57)
[2019-07-07 04:56] VITALS: BP 114/66; PULSE 85; RESP 15; TEMP 98
[2019-07-07] MEDS: carBAMazepine 100 MG TAB.ER.12H PO SCH (09:00)
[2019-07-07] MEDS: APIXABAN 5 MG TAB PO SCH (09:00)
[2019-07-07] MEDS: FOLIC ACID 1 MG TAB PO SCH (09:01)
[2019-07-07] MEDS: GABAPENTIN 300 MG CAP PO SCH (09:01)
[2019-07-07] MEDS: THIAMINE 100 MG TAB PO SCH (09:01)
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
== END 2019-07-07 12:19 | disposition home or self-care (01) | DRG 897 ==
LOC: EC 05:33 → 3MHU 18:00
PROVIDERS: ADMIT Psychiatry & Neurology Psychiatry; ATTEND Psychiatry & Neurology Psychiatry
DX: F10.251 Alcohol dependence with alcohol-induced psychotic disorder with hallucinations (principal); N17.9 Acute kidney failure, unspecified; R45.851 Suicidal ideations; I82.511 Chronic embolism and thrombosis of right femoral vein; F31.5 Bipolar disorder, current episode depressed, severe, with psychotic features; K70.10 Alcoholic hepatitis without ascites; R45.850 Homicidal ideations; F10.239 Alcohol dependence with withdrawal, unspecified; F41.9 Anxiety disorder, unspecified; F10.229 Alcohol dependence with intoxication, unspecified; G62.9 Polyneuropathy, unspecified; Y90.7 Blood alcohol level of 200-239 mg/100 ml; G47.00 Insomnia, unspecified; G89.29 Other chronic pain; M54.9 Dorsalgia, unspecified; F17.210 Nicotine dependence, cigarettes, uncomplicated; Z71.6 Tobacco abuse counseling; Z79.01 Long term (current) use of anticoagulants; Z79.899 Other long term (current) drug therapy; Z82.3 Family history of stroke
CPT/HCPCS: 36415; 74177; 80048; 80053; 80061; 80306; 80320; 82075; 82550; 83036; 83605; 83690; 83735; 84100; 84450; 84460; 85025; 93970; 96361; 96374; 96375; 99285

== ENCOUNTER 2019-09-01 02:38 | Emergency (ER) | payer OTHER ==
[2019-09-01 02:50] VITALS: BP 120/90; PULSE 98; RESP 18; TEMP 97.6
[2019-09-01] MEDS ORDERED: IBUPROFEN 400 MG TAB PO STA (03:14)
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
[2019-09-01 13:38] LABS: Urine Alcohol Positive (Negative); Urine Barbiturate Negative (Negative); Urine Cocaine Negative (Negative); Urine Methadone Negative (Negative); Urine Opiates Negative (Negative); Urine Phencyclidine Negative (Negative)
== END 2019-09-01 03:49 | disposition home or self-care (01) ==
LOC: EC 02:38
DX: F10.129 Alcohol abuse with intoxication, unspecified (principal); F17.200 Nicotine dependence, unspecified, uncomplicated
CPT/HCPCS: 80306; 82075; 99284

== ENCOUNTER 2019-10-13 23:15 | Inpatient (IN) | payer MEDICAID, OTHER ==
[2019-10-13] MEDS ORDERED: SODIUM CHLORIDE 0.9% 500 ML 500 ML IV STA (23:20)
[2019-10-13] MEDS ORDERED: SODIUM CHLORIDE 0.9% 1,000 ML IV STA (23:20)
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
[2019-10-14 00:01] LABS: Basophils # (A) 0.1 k/uL (0-0.2); Basophils % (A) 1 %; Eosinophils # (A) 0.2 k/uL (0-0.7); Eosinophils % (A) 2 %; HCT 47.3 % (39.0-53.0); Lymphocytes # (A) 1.7 k/uL (1.0-4.8); Lymphocytes % (A) 23 %; MCH 33.9 pg (25.0-35.0); MCHC 33.9 g/dL (31.0-37.0); Mean Platelet Volume 7.6; Monocytes # (A) 0.3 k/uL (0-1.0); Monocytes % (A) 4 %; Neutrophils # (A) 5.1 k/uL (1.3-7.7); Neutrophils % (A) 68 %; Platelet Count 215 k/uL (150-450); RBC 4.73 m/uL (4.30-5.90); RDW 12.1 % (11.5-15.5); WBC 7.6 k/uL (3.8-10.6)
[2019-10-14 00:12] LABS: ALT 46 U/L (4-49); AST 46 U/L (17-59); Acetaminophen <10.0 ug/mL; African American GFR (CKD) >90 (>60 ml/min/1.73 sqM); Albumin 4.3 g/dL (3.5-5.0); Alkaline Phosphatase 110 U/L (38-126); Anion Gap 13 mmol/L; Blood Urea Nitrogen 8 mg/dL (9-20); Calcium 9.1 mg/dL (8.4-10.2); Carbon Dioxide 23 mmol/L (22-30); Chloride 105 mmol/L (98-107); Creatine Kinase 131 U/L (55-170); Glucose 126 mg/dL (74-99); Non-African American GFR(CKD) >90 (>60 ml/min/1.73 sqM); Potassium 3.5 mmol/L (3.5-5.1); Sodium 141 mmol/L (137-145); Total Bilirubin 0.2 mg/dL (0.2-1.3)
[2019-10-14 00:21] LABS: INR 0.9 (<1.2); Prothrombin Time 9.6 sec (9.0-12.0)
[2019-10-14 00:38] LABS: Alcohol 211 mg/dL
[2019-10-14] MEDS ORDERED: THIAMINE 200 MG in SODIUM CHLORIDE 0.9% 100 ML IVPB STA (00:42)
[2019-10-14] MEDS ORDERED: LORazepam 2 MG/ML INJ IV STA (00:42)
[2019-10-14 01:36] LABS: Amphetamine Screen,Urine Not Detected (NotDetected); Barbiturate Screen,Urine Not Detected (NotDetected); Benzodiazepines Screen,Urine Not Detected (NotDetected); Cocaine Screen,Urine Not Detected (NotDetected); Methadone Screen, Urine Not Detected (NotDetected); Opiate Screen,Urine Not Detected (NotDetected); Oxycodone Screen, Urine Not Detected (NotDetected); Phencyclidine Screen,Urine Not Detected (NotDetected); Tricyclic Antidepressant,Urine Not Detected (NotDetected); Urn Cannabinoid Scrn Not Detected (NotDetected)
[2019-10-14] MEDS ORDERED: LORazepam 1 MG TAB PO STA (07:35)
[2019-10-14] MEDS ORDERED: POTASSIUM CHLORIDE ER 20 MEQ TAB.ER PO STA (08:43)
[2019-10-14] MEDS ORDERED: ALBUTEROL HFA INHALER INHALATION PRN (11:05)
[2019-10-14] MEDS ORDERED: ALBUTEROL INHALER 60 PUFF/8 GM INHALER (MHU) INHALATION PRN (11:10)
[2019-10-14] MEDS ORDERED: MAG HYDROX/AL HYDROX/SIMETH 30 ML CUP PO PRN (11:11)
[2019-10-14] MEDS ORDERED: MAGNESIUM HYDROXIDE 2,400 MG/10 ML CUP PO PRN (11:11)
[2019-10-14] MEDS: LORazepam 1 MG TAB PO PRN ×2 (16:38→21:56)
[2019-10-14] MEDS: ACETAMINOPHEN TAB 325 MG TAB PO PRN (16:38)
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
[2019-10-14] MEDS: PREGABALIN 75 MG CAP PO SCH (20:17)
[2019-10-14] MEDS: busPIRone HCl 5 MG TAB PO SCH (20:17)
[2019-10-14] MEDS: NICOTINE 21MG/24HR PATCH TRANSDERM SCH (21:01)
[2019-10-15] MEDS ORDERED: LORazepam 1 MG TAB ONE (03:30)
[2019-10-15] MEDS: FOLIC ACID 1 MG TAB PO SCH (08:54)
[2019-10-15] MEDS: NICOTINE 21MG/24HR PATCH TRANSDERM SCH (08:54)
[2019-10-15] MEDS: MULTIVITAMINS, THERA 1 EACH TAB PO SCH (08:54)
[2019-10-15] MEDS: THIAMINE 100 MG TAB PO SCH (08:54)
[2019-10-15] MEDS: busPIRone HCl 5 MG TAB PO SCH ×2 (08:55→20:47)
[2019-10-15] MEDS: PREGABALIN 75 MG CAP PO SCH ×2 (11:06→20:48)
--- NOTE | 2019-10-15 11:19 | P.HP ---
Psychiatric H&P - . History & Physical: Allergies Allergy/AdvReac Type Severity Reaction Status Date / Time No Known Allergies Allergy Verified 10/14/19 13:42 Vital Signs Temp 97.8 F 10/15/19 06:58 Pulse 73 10/15/19 06:58 Resp 18 10/15/19 06:58 BP 145/85 10/15/19 06:58 Pulse Ox 98 10/14/19 16:34 Intake & Output 10/14/19 10/15/19 10/15/19 18:59 06:59 18:59 Weight 106.594 kg Laboratory Last Values WBC 7.6 k/uL (3.8-10.6) 10/13/19 23:54 RBC 4.73 m/uL (4.30-5.90) 10/13/19 23:54 Hgb 16.0 gm/dL (13.0-17.5) 10/13/19 23:54 Hct 47.3 % (39.0-53.0) 10/13/19 23:54 MCV 100.0 fL (80.0-100.0) 10/13/19 23:54 MCH 33.9 pg (25.0-35.0) 10/13/19 23:54 MCHC 33.9 g/dL (31.0-37.0) 10/13/19 23:54 RDW 12.1 % (11.5-15.5) 10/13/19 23:54 Plt Count 215 k/uL (150-450) 10/13/19 23:54 Neutrophils % 68 % 10/13/19 23:54 Lymphocytes % 23 % 10/13/19 23:54 Monocytes % 4 % 10/13/19 23:54 Eosinophils % 2 % 10/13/19 23:54 Basophils % 1 % 10/13/19 23:54 Neutrophils # 5.1 k/uL (1.3-7.7) 10/13/19 23:54 Lymphocytes # 1.7 k/uL (1.0-4.8) 10/13/19 23:54 Monocytes # 0.3 k/uL (0-1.0) 10/13/19 23:54 Eosinophils # 0.2 k/uL (0-0.7) 10/13/19 23:54 Basophils # 0.1 k/uL (0-0.2) 10/13/19 23:54 PT 9.6 sec (9.0-12.0) 10/13/19 23:54 INR 0.9 (<1.2) 10/13/19 23:54 Sodium 141 mmol/L (137-145) 10/13/19 23:54 Potassium 3.5 mmol/L (3.5-5.1) 10/13/19 23:54 Chloride 105 mmol/L (98-107) 10/13/19 23:54 Carbon Dioxide 23 mmol/L (22-30) 10/13/19 23:54 Anion Gap 13 mmol/L 10/13/19 23:54 BUN 8 mg/dL (9-20) L 10/13/19 23:54 Creatinine 0.86 mg/dL (0.66-1.25) 10/13/19 23:54 Est GFR (CKD-EPI)AfAm >90 (>60 ml/min/1.73 sqM) 10/13/19 23:54 Est GFR (CKD-EPI)NonAf >90 (>60 ml/min/1.73 sqM) 10/13/19 23:54 Glucose 126 mg/dL (74-99) H 10/13/19 23:54 Calcium 9.1 mg/dL (8.4-10.2) 10/13/19 23:54 Magnesium 2.0 mg/dL (1.6-2.3) 10/13/19 23:54 Total Bilirubin 0.2 mg/dL (0.2-1.3) 10/13/19 23:54 AST 46 U/L (17-59) 10/13/19 23:54 ALT 46 U/L (4-49) 10/13/19 23:54 Alkaline Phosphatase 110 U/L (38-126) 10/13/19 23:54 Creatine Kinase 131 U/L (55-170) 10/13/19 23:54 CK-MB (CK-2) 1.4 ng/mL (0.0-2.4) 10/13/19 23:54 Total Protein 7.0 g/dL (6.3-8.2) 10/13/19 23:54 Albumin 4.3 g/dL (3.5-5.0) 10/13/19 23:54 Triglycerides 185 mg/dL (<150) H 10/13/19 23:54 Cholesterol 176 mg/dL (<200) 10/13/19 23:54 LDL Cholesterol, Calc 53 mg/dL (0-99) 10/13/19 23:54 HDL Cholesterol 86 mg/dL (40-60) H 10/13/19 23:54 TSH 1.360 mIU/L (0.465-4.680) 10/13/19 23:54 Salicylates 1.0 mg/dL 10/13/19 23:54 Urine Opiates Screen Not Detected (NotDetected) 10/14/19 00:14 Ur Oxycodone Screen Not Detected (NotDetected) 10/14/19 00:14 Urine Methadone Screen Not Detected (NotDetected) 10/14/19 00:14 Ur Propoxyphene Screen Not Detected (NotDetected) 10/14/19 00:14 Acetaminophen <10.0 ug/mL 10/13/19 23:54 Ur Barbiturates Screen Not Detected (NotDetected) 10/14/19 00:14 U Tricyclic Antidepress Not Detected (NotDetected) 10/14/19 00:14 Ur Phencyclidine Scrn Not Detected (NotDetected) 10/14/19 00:14 Ur Amphetamines Screen Not Detected (NotDetected) 10/14/19 00:14 U Methamphetamines Scrn Not Detected (NotDetected) 10/14/19 00:14 U Benzodiazepines Scrn Not Detected (NotDetected) 10/14/19 00:14 Urine Cocaine Screen Not Detected (NotDetected) 10/14/19 00:14 U Marijuana (THC) Screen Not Detected (NotDetected) 10/14/19 00:14 Serum Alcohol 211 mg/dL H* 10/13/19 23:54 Coronavirus (PCR) Not Detected (Not Detectd) 10/14/19 07:48 10/15/19 11:06 IDENTIFYING DATA: This patient is a 34-year-old single male who was admitted to the mental health unit through the emergency room due to a suicide attempt via medication overdose. HPI: Patient states that 2 days ago he overdosed with 30 Lyrica tablets. He states he was involved in a verbal altercation with his female roommate he became frustrated and consume the pills in front of her. She became alarmed and called 911. He states that they were arguing over money. The patient is well known to the psychiatric service he has had numerous admissions to the mental health unit. He has a known alcohol use disorder and he states he has been leonid navya on a daily basis. He has not followed up with [facility] it's likely has been off of his psychotropic medication. At times he endorses history of manic episodes at other times he endorses a unipolar depression history. He has been tried on numerous psychotropic medications. He feels that he does best when he is on Seroquel at bedtime. He reports continued suicidal thoughts today he reports no homicidal ideation intent or plan. He states that he is experiencing auditory hallucinations that are just talking about his family. They are noncommanding. He states they're there all day with seem to be worse when he is alone. He reports no visual hallucinations or any specific delusions. His alcohol level in the emergency room was 211. PAST PSYCHIATRIC HISTORY: Numerous inpatient psychiatric hospitalizations. This is his seventh psychiatric hospitalization since February 2017. He does have a history of other suicide attempts. He has not been following up with outpatient care as recommended. He has been on numerous psychotropic medications in the past. PMH: Neuropathy, history of DVT ALLERGIES: NO KNOWN DRUG ALLERGIES MEDICATIONS: Referred to [facility], he indicates that he supposed to be on eliquis CHEMICAL DEPENDENCY HISTORY: He reports daily use of alcohol. He indicates a pint a day. He will use marijuana but does not provide a frequency, he has been to inpatient chemical dependency treatment several times in the past. FAMILY PSYCHIATRIC HISTORY: He previously reported that his parents both have bipolar disorder, no suicides in the family FAMILY CHEMICAL DEPENDENCY HISTORY: Unknown SOCIAL HISTORY: The patient is 34 years old he single he states he resides with a female friend, he has 2 children, he is unemployed. Abuse history legal history unknown. MENTAL STATUS EXAM: The patient is an alert male appearing his stated age he is dressed in his own clothing hygiene is adequate he is a disheveled appearance he has a brown. Eye contact is poor. Speech is fluent slow nonspontaneous but he responds to questions. He indicates a depressed mood with continued suicidal ideation. He reports no homicidal ideation intent or plan. He is endorsing auditory hallucinations as noted above he endorses no command auditory hallucinations. No visual hallucinations no report a specific delusions. There is no observed evidence of psychosis during our session. Thought process is linear he demonstrates no tangential thinking loose associations or flight of ideas. He does not appear hypomanic or manic. He demonstrates no verbal or physical aggressiveness he demonstrates no involuntary repetitive movements. Insight and judgment poor. He is oriented to person place and date. He is able to name the days of the week backwards. STRENGTHS/WEAKNESSES: Strengths: Housing, weaknesses substance use poor coping skill development lack of participation in care INTELLECTUAL FUNCTIONING: Average IMPRESSIONS: [] 1. Depression and specified rule out bipolar depression versus major depressive disorder recurrent severe, psychosis on specified rule out substance induced psychosis, alcohol use disorder severe PLAN: The patient has been admitted to the mental health unit he will sign in voluntarily. We reviewed his presenting symptoms and treatment options. We will restart the Seroquel 200 mg at bedtime and may titrate that further. We will continue his BuSpar 7.5 mg twice daily. We will monitor him for alcohol withdrawal. We will restart his Eliquis. He was seen by internal medicine for routine history and physical exam. Social work will meet with the patient to complete a psychosocial assessment and begin discharge planning. The patient is strongly encouraged to attend inpatient chemical dependency treatment. We will monitor him for safety is encouraged to participate in groups. We'll involve any support he has in treatment and discharge planning as he will allow.
[2019-10-15 15:06] LABS: Hemoglobin A1C 4.6 % (4.0-6.0)
[2019-10-15] MEDS: LORazepam 1 MG TAB PO PRN (16:45)
[2019-10-15] MEDS: NICOTINE POLACRILEX 2 MG GUM BUCCAL PRN ×2 (16:46→18:47)
[2019-10-15] MEDS: ACETAMINOPHEN TAB 325 MG TAB PO PRN (16:47)
[2019-10-15] MEDS: APIXABAN 5 MG TAB PO SCH (20:48)
[2019-10-15] MEDS: QUEtiapine 200 MG TAB PO SCH (20:48)
[2019-10-16] MEDS: LORazepam 1 MG TAB PO PRN ×4 (01:15→23:13)
[2019-10-16] MEDS: PREGABALIN 75 MG CAP PO SCH ×2 (10:28→20:52)
[2019-10-16] MEDS: FOLIC ACID 1 MG TAB PO SCH (10:28)
[2019-10-16] MEDS: MULTIVITAMINS, THERA 1 EACH TAB PO SCH (10:28)
[2019-10-16] MEDS: APIXABAN 5 MG TAB PO SCH ×2 (10:28→20:52)
[2019-10-16] MEDS: busPIRone HCl 5 MG TAB PO SCH ×2 (10:28→20:52)
[2019-10-16] MEDS: THIAMINE 100 MG TAB PO SCH (10:28)
--- NOTE | 2019-10-16 11:29 | P.PN ---
Progress Note - Text Interval history: The patient is found in his room he follows me to an interview room. He indicates his mood is not good. He reports feeling down apathetic irritable. He didn't sleep last night. He states he still giving consideration to going to inpatient chemical dependency treatment which is highly recommended for him. He was given the phone number for access but has not yet called. He states it's "50-50" if he is going to call. He has no questions or concerns regarding his medication. Staff report that he is primarily staying in his room other than for meals. Mental status exam: The patient is an alert but tired appearing male appearing his stated age eye contact is poor affect is withdrawn mildly irritabl e at times. He reports his mood is not good. He continues to have suicidal thoughts. He endorses some continued hallucinations that are noncommanding. He provides no spontaneous speech and provides only brief answers to questions asked. He demonstrates no verbal or physical aggressiveness he demonstrates no involuntary repetitive movements. Insight and judgment impaired. Plan: The patient appears to be adjusting to the Seroquel. We will consider titrating the dose but he does appear tired this morning. He is also experiencing mild withdrawal effects from alcohol use. We will continue to monitor him for safety including his vital signs, CIWA scores reviewed. Ativan is available to prevent alcohol withdrawal symptoms. He is encouraged to participate fully in the milieu. He strongly encouraged to call the access line today to arrange inpatient chemical dependency treatment. He requires continued psychiatric hospitalization.
[2019-10-16] MEDS: NICOTINE POLACRILEX 2 MG GUM BUCCAL PRN (17:07)
[2019-10-16] MEDS: ACETAMINOPHEN TAB 325 MG TAB PO PRN (17:07)
[2019-10-16] MEDS: QUEtiapine 200 MG TAB PO SCH (20:52)
[2019-10-17] MEDS: busPIRone HCl 5 MG TAB PO SCH ×2 (08:58→20:06)
[2019-10-17] MEDS: APIXABAN 5 MG TAB PO SCH ×2 (08:58→20:05)
[2019-10-17] MEDS: PREGABALIN 75 MG CAP PO SCH ×2 (08:59→20:05)
[2019-10-17] MEDS: MULTIVITAMINS, THERA 1 EACH TAB PO SCH (08:59)
[2019-10-17] MEDS: FOLIC ACID 1 MG TAB PO SCH (08:59)
[2019-10-17] MEDS: THIAMINE 100 MG TAB PO SCH (08:59)
[2019-10-17] MEDS: LORazepam 1 MG TAB PO PRN ×2 (08:59→16:35)
--- NOTE | 2019-10-17 11:31 | P.PN ---
Progress Note - Text Progress Note Date: 10/17/19 Interval history: Patient was seen laying down in his bed and was directable and agreeable to s peak with selling underwriter. And appears to be isolative and states that "I don't want to see people today". She claims that his mood has been continuing to be depressed and states that he does feel some anxiety throughout the day. He feels that the medication has been helping mildly. He claims that he has not been going to any groups. He states that he had to "on and off sleep" last night. He endorses a fair appetite. At this time patient denies any suicidal or homicidal ideations intent or plan. Denies any Auditory or visual hallucinations. Patient denies any side effects from the medications and has been compliant with meds. Mental status exam: General Appearance: Patient appears to be stated age is alert, directable, and cooperative. Isolative. Behavior: No agitated behavior. Patient is calm and directable, laying in bed and isolative. Speech: Patient's speech is fluent and nonpressured. Mood/Affect: Mood is depressed, affect is congruent and constricted. Suicidality/Homicidality: Patient denies having any suicidal or homicidal ideation intent or plan. Perceptions: Patient denies any auditory or visual hallucinations. Though content/process: There is no evidence of any delusional thought content and thought process is linear and goal-directed. [place]. Memory and concentration: AOX3, grossly intact for the purposes of this session Judgment and insight: improving mildly Assessment/Plan: Continue with current diagnosis. Patient continues to meet criteria for inpatient psychiatric admission for symptom stabilization and safety.Patient will be maintained on current psychotropic medication regimen with the exception of increasing BuSpar to 15 mg twice a day for anxiety. Will consider increasing Seroquel tomorrow if needed. Monitor for medication compliance and for any psychotropic medication side effects. Will continue to monitor ongoing response to treatment. Encouraged participation in milieu.
[2019-10-17] MEDS: NICOTINE POLACRILEX 2 MG GUM BUCCAL PRN (13:37)
[2019-10-17] MEDS: ACETAMINOPHEN TAB 325 MG TAB PO PRN (16:36)
[2019-10-17] MEDS: QUEtiapine 200 MG TAB PO SCH (20:06)
[2019-10-18] MEDS: FOLIC ACID 1 MG TAB PO SCH (09:18)
[2019-10-18] MEDS: THIAMINE 100 MG TAB PO SCH (09:18)
[2019-10-18] MEDS: busPIRone HCl 5 MG TAB PO SCH ×2 (09:18→20:11)
[2019-10-18] MEDS: MULTIVITAMINS, THERA 1 EACH TAB PO SCH (09:18)
[2019-10-18] MEDS: PREGABALIN 75 MG CAP PO SCH ×2 (09:18→20:11)
[2019-10-18] MEDS: APIXABAN 5 MG TAB PO SCH ×2 (09:18→20:11)
[2019-10-18] MEDS: LORazepam 1 MG TAB PO PRN ×2 (09:19→17:11)
--- NOTE | 2019-10-18 11:23 | P.PN ---
Progress Note - Text Progress Note Date: 10/18/19 Interval history: Patient was seen laying down in his bed and was more directable today and agr eeable to speak with chief writer. He states that his mood has been gradually improving since yesterday and states that he feels more optimistic today. He did speak about his mother who as it is Mother's Day but states that he is feeling "sad about it". He requested also to have his Lyrica increased. He feels that the medication has been helping mildly. He claims that he wanted to groups yesterday evening and claims that "I've been socializing a bit". He states that he had improved sleep last night. He endorses a fair appetite. At this time patient denies any suicidal or homicidal ideations intent or plan. Denies any Auditory or visual hallucinations. Patient denies any side effects from the medications and has been compliant with meds. Mental status exam: General Appearance: Patient appears to be stated age is alert, directable, and cooperative. Isolative. Behavior: No agitated behavior. Patient is calm and directable. Attempts to cooperate. Speech: Patient's speech is fluent and nonpressured. Mood/Affect: Mood is depressed, mildly improving, affect is congruent and constricted. Suicidality/Homicidality: Patient denies having any suicidal or homicidal ideation intent or plan. Perceptions: Patient denies any auditory or visual hallucinations. Though content/process: There is no evidence of any delusional thought content and thought process is linear and goal-directed. [place]. Memory and concentration: AOX3, grossly intact for the purposes of this session Judgment and insight: improving mildly Assessment/Plan: Continue with current diagnosis. Patient continues to meet criteria for inpatient psychiatric admission for symptom stabilization and safety.Patient will be maintained on current psychotropic medication regimen. We'll defer increasing Lyrica at this time. Monitor for medication compliance and for any psychotropic medication side effects. Will continue to monitor ongoing response to treatment. Encouraged participation in milieu.
[2019-10-18] MEDS: NICOTINE POLACRILEX 2 MG GUM BUCCAL PRN (14:56)
[2019-10-18] MEDS: ACETAMINOPHEN TAB 325 MG TAB PO PRN (17:14)
[2019-10-18] MEDS: QUEtiapine 200 MG TAB PO SCH (20:11)
[2019-10-19] MEDS: MULTIVITAMINS, THERA 1 EACH TAB PO SCH (08:10)
[2019-10-19] MEDS: FOLIC ACID 1 MG TAB PO SCH (08:10)
[2019-10-19] MEDS: LORazepam 1 MG TAB PO PRN ×2 (08:10→15:11)
[2019-10-19] MEDS: busPIRone HCl 5 MG TAB PO SCH ×2 (08:10→20:53)
[2019-10-19] MEDS: PREGABALIN 75 MG CAP PO SCH ×2 (08:10→20:54)
[2019-10-19] MEDS: THIAMINE 100 MG TAB PO SCH (08:10)
[2019-10-19] MEDS: APIXABAN 5 MG TAB PO SCH ×2 (08:10→20:53)
[2019-10-19] MEDS: DULoxetine HCL 30 MG CAPSULE.DR PO SCH (10:33)
--- NOTE | 2019-10-19 11:36 | P.PN ---
Progress Note - Text Interval history: The patient is found in his room he follows me to an interview room. He indicates he is feeling better than when I saw him last on Saturday. He states on Saturday he was struggling with the thought of Mother's Day approaching. He states that he is very sad and thinking about his mother who is as well as his sister who is . He states he's doing better today. He reports he sleeping at night appetite is stable. He states he is willing to call today for inpatient chemical dependency treatment. We reviewed his psychotropic medications. He states he has done better in the past on Cymbalta for depression. He feels that the BuSpar has been helpful for anxiety. Mental status exam: The patient is alert he is dressed in his own clothing hygiene grooming adequate eye contact is appropriate. Speech is fluent spontaneous nonpressured. He indicates his mood is better. Affect is brighter. He is much more interactive in conversation. He is reporting no acute suicidal or homicidal ideation intent or plan he is reporting no auditory or visual hallucinations or any specific delusions. He is demonstrating no evidence of psychosis. He demonstrates no tangential thinking loose associations or flight of ideas. He demonstrates no verbal or physical aggressiveness he demonstrates no involuntary repetitive movements. Plan: The patient will be continued as current psychotropic medication. I will add Cymbalta 30 mg daily with a plan to titrate it further. He is instructed to call for inpatient chemical dependency treatment and he is agreeable. We will monitor him for safety. If he demonstrates continued improvement he may be appropriate for discharge in the next 1-2 days. Vital signs reviewed they're within normal limits.
[2019-10-19] MEDS: NICOTINE POLACRILEX 2 MG GUM BUCCAL PRN ×2 (15:06→20:56)
[2019-10-19 15:10] VITALS: RESP 16
[2019-10-19] MEDS: ACETAMINOPHEN TAB 325 MG TAB PO PRN (15:10)
[2019-10-19] MEDS: QUEtiapine 200 MG TAB PO SCH (20:53)
[2019-10-20 07:06] VITALS: BP 121/76; PULSE 83; TEMP 97.5
[2019-10-20] MEDS: ACETAMINOPHEN TAB 325 MG TAB PO PRN (07:15)
[2019-10-20] MEDS: LORazepam 1 MG TAB PO PRN (07:16)
[2019-10-20] MEDS: APIXABAN 5 MG TAB PO SCH (09:28)
[2019-10-20] MEDS: busPIRone HCl 5 MG TAB PO SCH (09:28)
[2019-10-20] MEDS: PREGABALIN 75 MG CAP PO SCH (09:29)
[2019-10-20] MEDS: DULoxetine HCL 30 MG CAPSULE.DR PO SCH (09:29)
[2019-10-20] MEDS: FOLIC ACID 1 MG TAB PO SCH (09:29)
[2019-10-20] MEDS: THIAMINE 100 MG TAB PO SCH (09:29)
[2019-10-20] MEDS: MULTIVITAMINS, THERA 1 EACH TAB PO SCH (09:29)
--- NOTE | 2019-10-20 09:42 | P.DS ---
Providers Date of admission: 10/14/19 10:55 Expected date of discharge: 10/20/19 Attending physician: Petr Crouch Consults: 10/14/19 11:11 Consult Physician Routine Consulting Provider: Oren Kay Consult Reason/Comments: H AND P Do you want consulting provider notified?: Yes Primary care physician: Teja Feldman - Discharge Diagnosis(es) (1) Major depressive disorder, recurrent severe without psychotic features Current Visit: No Status: Acute Priority: High (2) Alcohol use disorder, severe, dependence Current Visit: Yes Status: Acute Priority: High (3) Cannabis use disorder, mild, abuse Current Visit: No Status: Chronic Priority: Low Hospital Course: Brief summary of admission note: This patient is a 34-year-old single male who was admitted to the mental health unit through the emergency room due to reported suicide attempt with medication overdose. The patient reported that he overdosed with 30 Lyrica tablets. He was involved in a verbal altercation with his female roommate became frustrated and consumed the pills in front of her. She called 911. He indicates that they were arguing over money. The patient is well-known to the psychiatric service he has had numerous admissions to the mental health unit. He has a known history of alcohol use disorder with frequent relapses. He does have a history of depression. Intermittently he reports experiencing auditory hallucinations. They are noncommanding. His alcohol level in the emergency room was 211. For full details please refer to my psychiatric evaluation dated 10/15/2019. Summary of hospital course: The patient was admitted to the mental health unit voluntarily. We reviewed his presenting symptoms and treatment options. Initially we decided to continue the Seroquel 200 mg at bedtime to address sleep and his report of hallucinations. We did continue the BuSpar that he had been started on by his primary care physician and the dose was titrated. He indicated that Cymbalta seemed to be the most helpful for depression and that medication was initiated as well. During the course of our conversation we discussed his use of alcohol and he was willing to resume use of naltrexone. Although it took several days he did finally agreed to call the access line to a ange inpatient chemical dependency treatment. He is able to be placed at [place] next Saturday. The patient intermittently attended groups. He ate meals he was able to sleep at night. He demonstrated no agitated behavior. He reports no suicidal ideation intent or plan he reports a resolution of his psychosis. He plans to stay with his female friend Priti. He indicates [facility] where he will catch the shuttle to [place]. Mental status exam: The patient is alert he is dressed in his own clothing hygiene grooming are adequate. Eye contact is appropriate. Speech is fluent spontaneous nonpressured. Indicates his mood is better. He is reporting no hopelessness thinking no suicidal ideation intent or plan. He is reporting no homicidal ideation intent or plan. He is reporting no auditory or visual hallucinations or any specific delusions. He specifically denies having any command auditory hallucinations. He demonstrates no tangential thinking loose associations or flight of ideas. He does not appear hypomanic or manic. Affect is appropriately bright. He demonstrates an appropriate range. He demonstrates smiling and appropriate use of humor. He demonstrates no verbal or physical aggressiveness he demonstrates no involuntary repetitive movements. Insight and judgment are grossly intact. He is oriented to person place and date. Impressions 1. Major depressive disorder recurrent severe without psychosis, alcohol use disorder severe, cannabis use disorder mild Plan: The patient will be discharged mental health unit today he will return living with his friend Priti. Social work will arrange his outpatient follow- up. He is scheduled to participate in inpatient chemical dependency treatment next Saturday at [facility]. The patient will continue on Seroquel 200 mg at bedtime, Cymbalta 60 mg daily, BuSpar 15 mg twice daily, naltrexone 50 mg daily. He states that he has samples of Eliquis at home and does not need a prescription from me. The patient's instructed to abstain from any use of alcohol marijuana or illicit drugs as he substances will provoke mood symptoms symptoms of psychosis and will elevate his safety risk. At this time there is no imminent safety risk and he is appropriate for transition to outpatient care. Patient Condition at Discharge: Stable Plan - Discharge Summary Discharge Rx Participant: No New Discharge Prescriptions: New busPIRone HCL 15 mg PO BID #60 tab DULoxetine HCL [Cymbalta] 60 mg PO DAILY #30 cap Apixaban [Eliquis] 5 mg PO BID tab Nicotine Polacrilex [Nicorette] 2 mg BUCCAL Q2HR PRN #60 gum PRN Reason: Nicotine Cravings Naltrexone HCl [Revia] 50 mg PO DAILY #30 tablet QUEtiapine [SEROquel] 200 mg PO HS #30 tab Continue Albuterol Inhaler [Ventolin Hfa Inhaler] 2 puff INHALATION RT-Q4H PRN PRN Reason: Shortness Of Breath Pregabalin [Lyrica] 150 mg PO BID Discontinued Folic Acid 1 mg PO DAILY 30 Days #30 tab Thiamine [Vitamin B-1] 100 mg PO DAILY 30 Days #30 tab busPIRone HCL [Buspar] 7.5 mg PO BID QUEtiapine [SEROquel] 100 mg PO BID Discharge Medication List Albuterol Inhaler [Ventolin Hfa Inhaler] 2 puff INHALATION RT-Q4H PRN 10/14/19 [History] Pregabalin [Lyrica] 150 mg PO BID 10/14/19 [History] Apixaban [Eliquis] 5 mg PO BID tab 10/20/19 [Rx] DULoxetine HCL [Cymbalta] 60 mg PO DAILY #30 cap 10/20/19 [Rx] Naltrexone HCl [Revia] 50 mg PO DAILY #30 tablet 10/20/19 [Rx] Nicotine Polacrilex [Nicorette] 2 mg BUCCAL Q2HR PRN #60 gum 10/20/19 [Rx] QUEtiapine [SEROquel] 200 mg PO HS #30 tab 10/20/19 [Rx] busPIRone HCL 15 mg PO BID #60 tab 10/20/19 [Rx] Follow up Appointment(s)/Referral(s): intake,intake [Other] - 10/28/19 8:30 am None,Stated [REFERRING] - 1-2 days
== END 2019-10-20 11:48 | disposition home or self-care (01) | DRG 885 ==
LOC: EC 23:15 → 3MHU 10-14 10:55
PROVIDERS: ADMIT Psychiatry & Neurology Psychiatry; ATTEND Psychiatry & Neurology Psychiatry
DX: F33.2 Major depressive disorder, recurrent severe without psychotic features (principal); R44.0 Auditory hallucinations; F10.20 Alcohol dependence, uncomplicated; T42.6X2A Poisoning by other antiepileptic and sedative-hypnotic drugs, intentional self-harm, initial encounter; Z11.59 Encounter for screening for other viral diseases; F12.10 Cannabis abuse, uncomplicated; F41.9 Anxiety disorder, unspecified; G62.9 Polyneuropathy, unspecified; M79.2 Neuralgia and neuritis, unspecified; G89.29 Other chronic pain; M54.9 Dorsalgia, unspecified; F17.210 Nicotine dependence, cigarettes, uncomplicated; Z71.6 Tobacco abuse counseling; Z79.01 Long term (current) use of anticoagulants; Z79.899 Other long term (current) drug therapy; Z86.718 Personal history of other venous thrombosis and embolism; Z98.890 Other specified postprocedural states; Z82.3 Family history of stroke
CPT/HCPCS: 36415; 80053; 80061; 80306; 80320; 80329; 82075; 82550; 82553; 83036; 83520; 83735; 84443; 85025; 85610; 87635; 93005; 96365; 96366; 96375; 99285

== ENCOUNTER 2020-07-12 23:59 | Emergency (ER) | payer OTHER ==
[2020-07-13 00:15] VITALS: RESP 20
[2020-07-13] MEDS ORDERED: SODIUM CHLORIDE 0.9% 500 ML 500 ML IV STA (00:27)
[2020-07-13] MEDS ORDERED: SODIUM CHLORIDE 0.9% 1,000 ML IV STA ×2 (00:27)
[2020-07-13] MEDS ORDERED: KETOROLAC 15 MG/ML 1 ML VIAL IVP STA (00:29)
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
[2020-07-13 00:56] LABS: Basophils # (A) 0.2 k/uL (0-0.2); Basophils % (A) 1 %; Eosinophils # (A) 0.1 k/uL (0-0.7); Eosinophils % (A) 1 %; HGB 14.9 gm/dL (13.0-17.5); Hypochromasia Slight; Lymphocytes % (A) 26 %; MCH 31.1 pg (25.0-35.0); MCHC 34.7 g/dL (31.0-37.0); MCV 89.6 fL (80.0-100.0); Mean Platelet Volume 7.8; Monocytes # (A) 0.8 k/uL (0-1.0); Monocytes % (A) 5 %; Neutrophils # (A) 9.9 k/uL (1.3-7.7); Neutrophils % (A) 66 %; Platelet Count 243 k/uL (150-450); Poikilocytosis Moderate; RDW 14.6 % (11.5-15.5)
--- NOTE | 2020-07-13 01:31 | CT ---
EXAM: CT Head Without Intravenous Contrast CLINICAL HISTORY: Fall. Do not TECHNIQUE: Axial computed tomography images of the head/brain without intravenous contrast. CTDI is 34.49 mGy and DLP is 910.8 mGy-cm. This CT exam was performed using one or more of the following dose reduction techniques: automated exposure control, adjustment of the mA and/or kV according to patient size, and/or use of iterative reconstruction technique. COMPARISON: No relevant prior studies available. FINDINGS: Brain: Unremarkable. No acute intracranial hemorrhage, edema or abnormal mass-effect. Ventricles: Unremarkable. No ventriculomegaly. Bones/joints: Unremarkable. No acute fracture. Soft tissues: Unremarkable. Sinuses: Unremarkable as visualized. No acute sinusitis. Mastoid air cells: Unremarkable as visualized. No mastoid effusion. IMPRESSION: No acute findings. EXAM: CT Cervical Spine Without Intravenous Contrast CLINICAL HISTORY: Fall. Do not TECHNIQUE: Axial computed tomography images of the cervical spine without intravenous contrast. CTDI is 34.49 mGy and DLP is 910.8 mGy-cm. This CT exam was performed using one or more of the following dose reduction techniques: automated exposure control, adjustment of the mA and/or kV according to patient size, and/or use of iterative reconstruction technique. COMPARISON: No relevant prior studies available. FINDINGS: Vertebrae: Unremarkable. No acute fracture. Discs/spinal canal/neural foramina: No acute findings. Advanced disc degeneration at C5/C6. No spinal canal stenosis. Soft tissues: Unremarkable. IMPRESSION: No evidence of acute trauma.
[2020-07-13 01:42] LABS: ALT 72 U/L (4-49); AST 70 U/L (17-59); African American GFR (CKD) >90 (>60 ml/min/1.73 sqM); Albumin 4.3 g/dL (3.5-5.0); Alkaline Phosphatase 86 U/L (38-126); Anion Gap 14 mmol/L; Blood Urea Nitrogen 14 mg/dL (9-20); Calcium 8.3 mg/dL (8.4-10.2); Carbon Dioxide 20 mmol/L (22-30); Chloride 109 mmol/L (98-107); Glucose 109 mg/dL (74-99); Lipase 42 U/L (23-300); Magnesium 2.1 mg/dL (1.6-2.3); Non-African American GFR(CKD) >90 (>60 ml/min/1.73 sqM); Phosphorus 4.3 mg/dL (2.5-4.5); Potassium 3.8 mmol/L (3.5-5.1); Sodium 143 mmol/L (137-145); Total Bilirubin 0.5 mg/dL (0.2-1.3)
[2020-07-13 01:44] LABS: Alcohol 277 mg/dL
[2020-07-13 02:36] VITALS: BP 110/72; PULSE 98
== END 2020-07-13 02:28 | disposition home or self-care (01) ==
LOC: EC 23:59
DX: F10.229 Alcohol dependence with intoxication, unspecified (principal); F17.200 Nicotine dependence, unspecified, uncomplicated; Z86.718 Personal history of other venous thrombosis and embolism
CPT/HCPCS: 82075; 36415; 80053; 83690; 83735; 84100; 85025; 72125; 70450; 99285; 96374; 96361 ×2; G0480; J1885; 80320

== ENCOUNTER 2020-07-14 13:02 | Inpatient (IN) | payer MEDICAID, OTHER ==
[2020-07-14] MEDS ORDERED: SODIUM CHLORIDE 0.9% 1,000 ML IV ONE (13:24)
[2020-07-14] MEDS ORDERED: LORazepam 2 MG/ML INJ IV STA (13:24)
[2020-07-14] MEDS ORDERED: LORazepam 2 MG/ML INJ IV PRN ×3 (13:25)
[2020-07-14] MEDS ORDERED: THIAMINE 100 MG/ML 2 ML VIAL IM STA (13:25)
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
[2020-07-14 13:59] LABS: Basophils # (A) 0.1 k/uL (0-0.2); Basophils % (A) 1 %; Eosinophils # (A) 0.1 k/uL (0-0.7); Eosinophils % (A) 1 %; HCT 40.5 % (39.0-53.0); HGB 14.1 gm/dL (13.0-17.5); Lymphocytes # (A) 2.6 k/uL (1.0-4.8); Lymphocytes % (A) 23 %; MCH 30.2 pg (25.0-35.0); MCHC 34.8 g/dL (31.0-37.0); MCV 86.8 fL (80.0-100.0); Mean Platelet Volume 6.9; Monocytes # (A) 0.5 k/uL (0-1.0); Monocytes % (A) 4 %; Neutrophils # (A) 7.9 k/uL (1.3-7.7); Neutrophils % (A) 70 %; Platelet Count 290 k/uL (150-450); RBC 4.66 m/uL (4.30-5.90); RDW 12.6 % (11.5-15.5); WBC 11.2 k/uL (3.8-10.6)
[2020-07-14 14:01] LABS: ALT 63 U/L (4-49); AST 69 U/L (17-59); African American GFR (CKD) >90 (>60 ml/min/1.73 sqM); Albumin 3.9 g/dL (3.5-5.0); Alkaline Phosphatase 90 U/L (38-126); Anion Gap 11 mmol/L; Blood Urea Nitrogen 11 mg/dL (9-20); Calcium 7.5 mg/dL (8.4-10.2); Carbon Dioxide 22 mmol/L (22-30); Chloride 109 mmol/L (98-107); Glucose 108 mg/dL (74-99); Non-African American GFR(CKD) >90 (>60 ml/min/1.73 sqM); Potassium 3.5 mmol/L (3.5-5.1); Sodium 142 mmol/L (137-145); Total Bilirubin 0.6 mg/dL (0.2-1.3); Total Protein 6.5 g/dL (6.3-8.2)
[2020-07-14 14:11] LABS: Alcohol 215 mg/dL
[2020-07-14 14:12] LABS: Amphetamine Screen,Urine Not Detected (NotDetected); Barbiturate Screen,Urine Not Detected (NotDetected); Benzodiazepines Screen,Urine Not Detected (NotDetected); Cocaine Screen,Urine Not Detected (NotDetected); Methadone Screen, Urine Not Detected (NotDetected); Opiate Screen,Urine Not Detected (NotDetected); Oxycodone Screen, Urine Not Detected (NotDetected); Phencyclidine Screen,Urine Not Detected (NotDetected); Tricyclic Antidepressant,Urine Not Detected (NotDetected); Urn Cannabinoid Scrn Detected (NotDetected)
--- NOTE | 2020-07-14 14:43 | CT ---
EXAMINATION TYPE: CT brain cspine wo con DATE OF EXAM: 07/14/2020 COMPARISON: CT brain and cervical spine from yesterday HISTORY: Recent fall injury hitting head on ice with continued headache and neck pain. CT DLP: 1814.8 mGycm. Automated Exposure Control for Dose Reduction was Utilized. TECHNIQUE: CT scan of the head and cervical spine are performed without contrast. FINDINGS: There is no acute intracranial hemorrhage, mass effect, or midline shift identified. The ventricles and sulci are within normal limits in size. [place]-white matter differentiation is maintai jesusita. The calvarium is intact. The globes are intact and the visualized sinuses are clear. Cervical spine is visualized in its entirety from C1 through upper thoracic levels and demonstrates s table and straightened alignment without evidence of acute fracture or dislocation. Stable slight gr jer[place] 1 retrolisthesis C5 on C6. Prevertebral soft tissue remains within normal limits. The C1-C2 tiffanie culation remains within normal limits on coronal images. Persistent mild to moderate disc space narr owing and spurring C5-C6 level. Small posterior spur disc complex effaces the anterior thecal sac at this level. Visualized thyroid gland appears within normal limits. Visualized lung apices show no pne umothorax. IMPRESSION: 1. There is no acute fracture or dislocation evident in the cervical spine. 2. No acute intracranial hemorrhage or midline shift is seen. No significant change from CT one day earlier.
[2020-07-14] MEDS ORDERED: ACETAMINOPHEN TAB 325 MG TAB PO STA (18:19)
[2020-07-14] MEDS: THIAMINE 100 MG TAB PO SCH (18:24)
[2020-07-14] MEDS ORDERED: KETOROLAC 15 MG/ML 1 ML VIAL IVP STA (20:20)
[2020-07-14] MEDS ORDERED: MAGNESIUM HYDROXIDE 2,400 MG/10 ML CUP PO PRN (23:44)
[2020-07-14] MEDS ORDERED: LORazepam 2 MG/ML INJ IM PRN (23:51)
[2020-07-14] MEDS ORDERED: HALOPERIDOL LACTATE 5 MG/ML 1 ML VIAL IM PRN (23:54)
[2020-07-15] MEDS: LORazepam 1 MG TAB PO PRN ×4 (00:13→23:00)
[2020-07-15] MEDS: chlordiazePOXIDE 25 MG CAP PO SCH ×3 (00:13→20:36)
[2020-07-15] MEDS: ACETAMINOPHEN TAB 325 MG TAB PO PRN ×3 (08:31→20:36)
[2020-07-15] MEDS: THIAMINE 100 MG TAB PO SCH ×2 (08:32→16:25)
[2020-07-15 08:39] LABS: Basophils # (A) 0.1 k/uL (0-0.2); Basophils % (A) 1 %; Eosinophils # (A) 0.1 k/uL (0-0.7); Eosinophils % (A) 2 %; HCT 40.2 % (39.0-53.0); HGB 14.1 gm/dL (13.0-17.5); Lymphocytes # (A) 1.9 k/uL (1.0-4.8); Lymphocytes % (A) 22 %; MCH 30.6 pg (25.0-35.0); MCV 87.4 fL (80.0-100.0); Monocytes # (A) 0.5 k/uL (0-1.0); Monocytes % (A) 6 %; Neutrophils # (A) 5.9 k/uL (1.3-7.7); Neutrophils % (A) 69 %; Platelet Count 216 k/uL (150-450); RDW 12.5 % (11.5-15.5); WBC 8.5 k/uL (3.8-10.6)
[2020-07-15 08:55] LABS: ALT 62 U/L (4-49); AST 61 U/L (17-59); African American GFR (CKD) >90 (>60 ml/min/1.73 sqM); Albumin 3.9 g/dL (3.5-5.0); Alkaline Phosphatase 81 U/L (38-126); Anion Gap 8 mmol/L; Blood Urea Nitrogen 14 mg/dL (9-20); Calcium 8.4 mg/dL (8.4-10.2); Carbon Dioxide 26 mmol/L (22-30); Chloride 103 mmol/L (98-107); Cholesterol 175 mg/dL (<200); Glucose 114 mg/dL (74-99); HDL Cholesterol 56 mg/dL (40-60); LDL Cholesterol,Calculated 85 mg/dL (0-99); Non-African American GFR(CKD) >90 (>60 ml/min/1.73 sqM); Potassium 3.7 mmol/L (3.5-5.1); Sodium 137 mmol/L (137-145); Total Bilirubin 1.3 mg/dL (0.2-1.3); Total Protein 6.5 g/dL (6.3-8.2); Triglycerides 168 mg/dL (<150)
[2020-07-15] MEDS ORDERED: NICOTINE 21MG/24HR PATCH TRANSDERM SCH (09:00)
--- NOTE | 2020-07-15 13:12 | P.HP ---
Psychiatric H&P - . H&P Date: 07/15/20 History & Physical: Allergies Allergy/AdvReac Type Severity Reaction Status Date / Time No Known Allergies Allergy Verified 07/14/20 13:03 Vital Signs Temp 97.7 F 07/15/20 09:45 Pulse 106 H 07/15/20 08:35 Resp 18 07/15/20 03:51 BP 135/83 07/15/20 08:35 Pulse Ox 98 07/15/20 03:51 Intake & Output 07/14/20 07/15/20 07/15/20 18:59 06:59 18:59 Weight 127.006 kg Laboratory Last Values WBC 8.5 k/uL (3.8-10.6) 07/15/20 08:22 RBC 4.60 m/uL (4.30-5.90) 07/15/20 08:22 Hgb 14.1 gm/dL (13.0-17.5) 07/15/20 08:22 Hct 40.2 % (39.0-53.0) 07/15/20 08:22 MCV 87.4 fL (80.0-100.0) 07/15/20 08:22 MCH 30.6 pg (25.0-35.0) 07/15/20 08:22 MCHC 35.0 g/dL (31.0-37.0) 07/15/20 08:22 RDW 12.5 % (11.5-15.5) 07/15/20 08:22 Plt Count 216 k/uL (150-450) 07/15/20 08:22 MPV 7.0 07/15/20 08:22 Neutrophils % 69 % 07/15/20 08:22 Lymphocytes % 22 % 07/15/20 08:22 Monocytes % 6 % 07/15/20 08:22 Eosinophils % 2 % 07/15/20 08:22 Basophils % 1 % 07/15/20 08:22 Neutrophils # 5.9 k/uL (1.3-7.7) 07/15/20 08:22 Lymphocytes # 1.9 k/uL (1.0-4.8) 07/15/20 08:22 Monocytes # 0.5 k/uL (0-1.0) 07/15/20 08:22 Eosinophils # 0.1 k/uL (0-0.7) 07/15/20 08:22 Basophils # 0.1 k/uL (0-0.2) 07/15/20 08:22 Sodium 137 mmol/L (137-145) 07/15/20 08:22 Potassium 3.7 mmol/L (3.5-5.1) 07/15/20 08:22 Chloride 103 mmol/L (98-107) 07/15/20 08:22 Carbon Dioxide 26 mmol/L (22-30) 07/15/20 08:22 Anion Gap 8 mmol/L 07/15/20 08:22 BUN 14 mg/dL (9-20) 07/15/20 08:22 Creatinine 0.83 mg/dL (0.66-1.25) 07/15/20 08:22 Est GFR (CKD-EPI)AfAm >90 (>60 ml/min/1.73 sqM) 07/15/20 08:22 Est GFR (CKD-EPI)NonAf >90 (>60 ml/min/1.73 sqM) 07/15/20 08:22 Glucose 114 mg/dL (74-99) H 07/15/20 08:22 Calcium 8.4 mg/dL (8.4-10.2) 07/15/20 08:22 Magnesium 2.0 mg/dL (1.6-2.3) 07/14/20 13:37 Total Bilirubin 1.3 mg/dL (0.2-1.3) 07/15/20 08:22 AST 61 U/L (17-59) H 07/15/20 08:22 ALT 62 U/L (4-49) H 07/15/20 08:22 Alkaline Phosphatase 81 U/L (38-126) 07/15/20 08:22 Total Protein 6.5 g/dL (6.3-8.2) 07/15/20 08:22 Albumin 3.9 g/dL (3.5-5.0) 07/15/20 08:22 Triglycerides 168 mg/dL (<150) H 07/15/20 08:22 Cholesterol 175 mg/dL (<200) 07/15/20 08:22 LDL Cholesterol, Calc 85 mg/dL (0-99) 07/15/20 08:22 HDL Cholesterol 56 mg/dL (40-60) 07/15/20 08:22 TSH 3.500 mIU/L (0.465-4.680) 07/15/20 08:22 Urine Opiates Screen Not Detected (NotDetected) 07/14/20 13:54 Ur Oxycodone Screen Not Detected (NotDetected) 07/14/20 13:54 Urine Methadone Screen Not Detected (NotDetected) 07/14/20 13:54 Ur Propoxyphene Screen Not Detected (NotDetected) 07/14/20 13:54 Ur Barbiturates Screen Not Detected (NotDetected) 07/14/20 13:54 U Tricyclic Antidepress Not Detected (NotDetected) 07/14/20 13:54 Ur Phencyclidine Scrn Not Detected (NotDetected) 07/14/20 13:54 Ur Amphetamines Screen Not Detected (NotDetected) 07/14/20 13:54 U Methamphetamines Scrn Not Detected (NotDetected) 07/14/20 13:54 U Benzodiazepines Scrn Not Detected (NotDetected) 07/14/20 13:54 Urine Cocaine Screen Not Detected (NotDetected) 07/14/20 13:54 U Marijuana (THC) Screen Detected (NotDetected) H 07/14/20 13:54 Serum Alcohol 215 mg/dL H* 07/14/20 13:37 Coronavirus (PCR) Not Detected (Not Detectd) 07/14/20 23:15 07/15/20 12:52 IDENTIFYING DATA: Patient is a single, unemployed, 34-year-old male who was admitted for suicidal ideation the context of alcohol use issue nonadherence HPI: Patient presented to the hospital on 07/14/2020 for evaluation of alcohol intoxication, fall, and suicidal ideation. The patient reportedly fell a day prior to this admission and reported hitting his face and losing consciousness. The patient was recently discharged from residential a week ago and since then has not been on any of his prescribed medications. The patient is also been staying in a home that is currently under construction and has no heating or running water. The patient reports that since he was discharged from residential, he has been feeling "not myself." He reports that his mood has been low and he has been expressing suicidal thoughts. He reports that he did attempt suicide a few days ago by drinking a lot of alcohol and taking a bunch of [id number] medications. He endorses significant symptoms of depression including low mood, difficulty sleeping, hopelessness, and helplessness. He denies any homicidal ideation, intention, and/or plan. The patient does endorse auditory hallucinations which she describes as voices that are continuously mocking him. He denies any command type hallucinations. He endorses visual hallucinations which she states is a result of the fall on the ice that he had earlier this week. CT of the head and neck was performed in the emergency department and no acute fracture or dislocation was evident in the cervical spine. There was also no acute intracranial hemorrhage or midline shift seen. He reports that he sees occasional flashing lights and colors. The patient denies any paranoia or delusions. The patient does not endorse any significant history of trauma. He states that he was incarcerated for the last 8 months for an assault and battery charge. Prior to leaving residential, the patient was on a regimen of Zyprexa and Remeron. PAST PSYCHIATRIC HISTORY: Patient states that he has been previously diagnosed with depression, bipolar disorder, substance-induced psychosis, and alcohol use disorder. He has had multiple trials of medications including Seroquel, BuSpar, Zyprexa, gabapentin and Remeron. He does not recall the other medications he has tried in the past. The patient has had multiple psychiatric hospitalizations with this one being the eighth psychiatric hospitalization since February 2017. Patient denies any psychiatric outpatient follow-up. The patient reports multiple multiple suicide attempts in the past with the most recent one being a week and a half ago by overdose PMH: Chronic back pain, DVT ALLERGIES: NO KNOWN DRUG ALLERGIES CHEMICAL DEPENDENCY HISTORY: Patient reports smoking one pack per day of tobacco. He reports drinking up to a fifth of liquor per day with the last drink being yesterday prior to admission. He denies any marijuana or other drug use. He reports that he has been to rehab twice for substance use with the last one being 2 years ago. FAMILY PSYCHIATRIC/SUBSTANCE USE HISTORY: Reports that both his parents have been diagnosed with bipolar disorder. He reports no family history of suicide. SOCIAL HISTORY: Patient is currently single, never . He has one 12-year-old son who is currently staying with the mother. He has 2 living sisters, 1 sister, and 2 living brothers. His mother 5 years ago. He reports that he is close to his father. Is a 12th grade education. 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 He is currently unemployed and homeless. MENTAL STATUS EXAM: General Appearance: Patient appears to be stated age is alert, directable, and attempts to cooperate. Patient appears to have fair hygiene and grooming. Patient is a ramirez large man. Behavior: Patient is seated without any agitated behavior. Psychomotor activity appears normal. Eye contact is appropriate. Speech: Patient's speech is fluent and nonpressured. Spontaneous but monotone. Mood/Affect: Patient reports their mood is depressed, affect is congruent and blunted. Suicidality/Homicidality: Patient is endorsing suicidal ideation but is denying any homicidal ideation, intention, and/or plan. Perceptions: The patient endorses auditory hallucinations but denies any visual hallucinations. Though content/process: There is no evidence of any delusional thought content and thought process is linear and goal-directed. Memory and concentration: AOX3, grossly intact for the purposes of this session. Can spell "WORLD" backwards Judgment and insight: Fair STRENGTHS/WEAKNESSES: Strength is that the patient is in relatively good health and reports a supportive family. Weakness is that patient engages in heavy alcohol use and has numerous psychosocial stressors including unemployment and homelessness. INTELLECT: average IMPRESSIONS: Major depressive disorder, recurrent, severe, with mood congruent psychotic features Alcohol use disorder He continued dependence PLAN: -Patient is admitted under voluntary status to [facility]HU for stabilization of psychiatric symptoms and safety. Patient signed adult voluntary form and medication consent and is placed in patient's chart. -Medications : Will start patient on Librium 25 mg by mouth twice a day for alcohol withdrawal Cymbalta 30 mg by mouth daily for depression Gabapentin 300 mg by mouth 3 times a day neuropathy/off label anxiety Seroquel 50 mg by mouth at bedtime to be increased over the weekend to 75 mg by mouth at bedtime -Ativan and Haldol PRN for agitation/aggression -Started thiamine, MVM for etoh use -CIWA protocol with Ativan PRN for ETOH withdrawal -Patient was counselled on substance abuse and desired to cut back on use -Patient was informed of the risks, benefits and side effects of the medication and patient verbally consented to taking the medications. -Internal Medicine consult to perform medical evaluation and physical. -NRT - Nicorette gum as per patient preference -SW on board for discharge planning. Encourage patient to participate in groups to work on coping skills.
[2020-07-15] MEDS: MAG HYDROX/AL HYDROX/SIMETH 30 ML CUP PO PRN (16:24)
[2020-07-15] MEDS: GABAPENTIN 300 MG CAP PO SCH ×2 (16:25→20:36)
[2020-07-15] MEDS: NICOTINE POLACRILEX 2 MG GUM BUCCAL PRN ×2 (16:27→20:36)
[2020-07-15 17:47] LABS: Hemoglobin A1C 5.1 % (4.0-6.0)
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
[2020-07-15] MEDS ORDERED: QUEtiapine 50 MG TAB PO SCH (21:00)
[2020-07-15] MEDS: haloperidoL 5 MG TAB PO PRN (23:00)
[2020-07-16] MEDS: GABAPENTIN 300 MG CAP PO SCH ×3 (08:03→20:52)
[2020-07-16] MEDS: DULoxetine HCL 30 MG CAPSULE.DR PO SCH (08:04)
[2020-07-16] MEDS: THIAMINE 100 MG TAB PO SCH ×2 (08:04→16:19)
[2020-07-16] MEDS: chlordiazePOXIDE 25 MG CAP PO SCH (08:04)
[2020-07-16] MEDS: NICOTINE POLACRILEX 2 MG GUM BUCCAL PRN ×3 (08:04→23:11)
[2020-07-16] MEDS: LORazepam 1 MG TAB PO PRN (08:06)
[2020-07-16] MEDS: QUEtiapine 50 MG TAB PO SCH ×2 (11:54→20:52)
[2020-07-16] MEDS: ASPIRIN 81 MG PO SCH (11:54)
[2020-07-16] MEDS: MAG HYDROX/AL HYDROX/SIMETH 30 ML CUP PO PRN ×2 (16:19→23:11)
--- NOTE | 2020-07-16 16:22 | PN ---
DATE OF SERVICE: 07/16/2020 PROGRESS NOTE CHIEF COMPLAINT: The patient was depressed. A few days before admission he made a suicide gesture by drinking alcohol and taking a number of fsdc-lmc-phrejcy medications. INTERVAL HISTORY: Patient has been doing fair. He had a quiet day yesterday. He chose not to attend groups yesterday. He said mostly he stays in his room and naps on and off during the day. His highest CIWA score yesterday was 7. The patient reports that he slept poorly last night. He said he woke up at different times and just laid in bed having difficulty getting himself back to sleep. He said he had some strange nightmares. Today he has been up and continues to spend a fair amount of time in his room. He said he got out of prison three days ago and since then has pretty much been sleeping all day. He discussed some grief issues with a friend of his passing away. Also, another person said that he could live at that house, though now he is not sure that that is going to be available. In regards to alcohol issues, he said that he went for nine months leading up to his current situation where he was not drinking or using any abusive substances. He said that in the last two days he got a serious headache and did not have anything to help with the headache so he drank. He said that caused him a "black blurry." He was vague about exactly what he experienced. When we reviewed medications he said that he did not feel that Zyprexa had helped him much and on the other hand he said he thought it caused him some restlessness. He does feel that Seroquel helped a bit. He appears to tolerate his psychotropic medications. MENTAL STATUS: Patient sat without restlessness. Eye contact was fair. Psychomotor activity was slowed. He answered questions with brief responses. He had a monotone soft voice. His thoughts were clear though he did not say a lot. His affect was flat. His mood reserved. He seemed moderately distressed. There was no indication of thought disorder. He voiced no thoughts or intent towards harm. Cognition was clear. ASSESSMENT: I will continue the current diagnosis and treatment plan. We will continue to make efforts to engage the patient in individual and group therapeutic activities. I will increase the patient's Seroquel with the target of helping reduce physiologic stress response relating to withdrawal and depression. I will start Seroquel 50 mg twice a day and increase his nighttime dose to 200 mg which is a dose the patient said he has taken in the past. He will continue Cymbalta 30 mg a day. I discussed withdrawal issues with the patient given that he apparently has only been drinking for a few days and had an extended period of sobriety while he was in prison. I discussed that he is not likely to have any extended withdrawal issues beyond possibly about a week. I would look to increase his Cymbalta to 60 mg on Saturday. I discussed the therapeutic walking program to help him manage some of his withdrawal issues as well as some of anxiety and mood issues that he struggles with. We will focus on stabilization and discharge planning. HAM / MARLENE: [id number] / MTDD
[2020-07-16] MEDS: ACETAMINOPHEN TAB 325 MG TAB PO PRN ×2 (19:31→23:10)
[2020-07-16] MEDS: QUEtiapine 200 MG TAB PO SCH (20:52)
[2020-07-16] MEDS ORDERED: QUEtiapine 25 MG TAB PO SCH (21:00)
[2020-07-16] MEDS: haloperidoL 5 MG TAB PO PRN (23:11)
[2020-07-17] MEDS: GABAPENTIN 300 MG CAP PO SCH ×3 (09:00→21:02)
[2020-07-17] MEDS: ASPIRIN 81 MG PO SCH (09:00)
[2020-07-17] MEDS: DULoxetine HCL 30 MG CAPSULE.DR PO SCH (09:00)
[2020-07-17] MEDS: THIAMINE 100 MG TAB PO SCH ×2 (09:00→17:32)
[2020-07-17] MEDS: QUEtiapine 50 MG TAB PO SCH ×2 (09:00→21:02)
[2020-07-17] MEDS: ACETAMINOPHEN TAB 325 MG TAB PO PRN (15:25)
[2020-07-17] MEDS: NICOTINE POLACRILEX 2 MG GUM BUCCAL PRN ×2 (15:25→19:20)
--- NOTE | 2020-07-17 16:20 | PN ---
PROGRESS NOTE DATE OF SERVICE: 07/17/2020. CHIEF COMPLAINT: The patient was depressed. A few days before admission, he made a suicide gesture by drinking alcohol and taking a number of jhyv-zdb-[id number] medications. INTERVAL HISTORY: Patient has been doing fair. He had a quiet day yesterday. He comes out on the unit. He seems to be generally comfortable in the milieu. He spends a fair amount of time in his room. He did not attend groups yesterday. His CIWA scores have remained low. He slept better last night with the increase in Seroquel to 200 mg a day. He suggested that he might want to consider even going higher with the Seroquel. He says in the past, he felt that Seroquel was helpful for him. Today he has been up. Again, he is out in the day area. He wanders about. He does not attend groups, though he will socialize some with others. His CIWA scores have been essentially 0. He said that he was concerned about going off the Ativan though understands that needs to be used only for clear detox issues. He has had relatively stable vital signs. This morning at 5:24 am vital signs included BP 135/84, pulse 105 and regular, temperature 97.7, respirations 18. The patient tolerates his psychotropic medications. MENTAL STATUS: He gave fair eye contact. He was somewhat restless. He answered questions with brief responses. His thoughts were clear. He was not too spontaneous or he was somewhat interactive. His affect was blunted. He had a somewhat anxious and at times somewhat distressed manner, though not to a significant degree. His mood was dysphoric though not clearly down or depressed. He did not appear to be significantly distressed. ASSESSMENT: I will continue the current diagnosis and treatment plan. I will continue psychotropic medications the same. We reviewed medication issues further. I discussed the indication, potential side effects, concerns related to metabolics and movement disorder issues. We will focus on stabilization and discharge planning. HAM / ARNALDON: [id number] /
[2020-07-17] MEDS: haloperidoL 5 MG TAB PO PRN (17:32)
[2020-07-17] MEDS: QUEtiapine 200 MG TAB PO SCH (21:02)
[2020-07-18] MEDS: ASPIRIN 81 MG PO SCH (08:25)
[2020-07-18] MEDS: GABAPENTIN 300 MG CAP PO SCH (08:25)
[2020-07-18] MEDS: QUEtiapine 50 MG TAB PO SCH ×2 (08:26→20:24)
[2020-07-18] MEDS: THIAMINE 100 MG TAB PO SCH ×2 (08:26→17:52)
[2020-07-18] MEDS: DULoxetine HCL 60 MG CAPSULE.DR PO SCH (08:26)
[2020-07-18] MEDS: NICOTINE POLACRILEX 2 MG GUM BUCCAL PRN ×4 (08:43→19:36)
--- NOTE | 2020-07-18 10:16 | P.PN ---
Progress Note - Text Progress Note Date: 07/18/20 Interval History: Patient was seen wandering the hallways and was directable and agreeable to speak with copywriter in the office. She reports that he is feeling overall better but continues endorse significant pain secondary to fall that he had earlier last week. He is not reporting any suicidal or homicidal ideation, intention, and/or plan. He continues endorse auditory hallucinations but continues to be demeaning in nature but states that overall this is decreased in severity. He is denying any visual hallucinations. He is denying any paranoia or delusions at this time. He has been adherent with his medications and reports no significant side effects. He is currently requesting an increase in his medications to help address racing thoughts and elevated anxiety. We discussed at length that alcohol may have a long-term effects on mood stabilization and anxiety and that medications can only do so much at this time. The patient is looking forward to discharge that he may return to work. Mental Status Exam: General Appearance: Patient appears to be stated age is alert, directable, and cooperative. Patient is a ramirez and large man. Behavior: Patient is calmly seated without any agitated behavior. Eye contact is appropriate. Psychomotor activity is normal. Speech: Patient's speech is fluent and nonpressured. Normal tone, fluency, and is spontaneous. Mood/Affect: Mood is improving mildly, affect is congruent and euthymic. Suicidality/Homicidality: Patient denies having any suicidal or homicidal ideation intent or plan. Perceptions: Patient denies any visual hallucinations but endorses auditory hallucinations. Though content/process: There is no evidence of any delusional thought content and thought process is linear and goal-directed. Memory and concentration: AOX3, grossly intact for the purposes of this session Judgment and insight: Improving mildly Assessment Major depressive disorder, recurrent, severe, with mood congruent psychotic features Alcohol use disorder Nicotine dependence Plan: -Patient continues to meet criteria for inpatient psychiatric admission for symptom stabilization and safety. Patient has signed adult voluntary form and medication consent and was placed in patient's chart. -Medications: Librium was tapered off over the weekend. Cymbalta 60 mg by mouth twice a day for depression Gabapentin will be increased to 400 mg by mouth 3 times a day for neuropathy/off label anxiety Seroquel was increased over the weekend to 50 mg by mouth twice a day and 200 g by mouth at bedtime. We will hold at this dose. We discussed at length with the patient the risks, benefits, and treatment alternatives. He is wishing to continue Seroquel at this time. He was advised to avoid operating heavy machinery should he feel drowsiness secondary to medication. -When necessary Ativan and Haldol for agitation/aggression. -NRT -Nicorette gum -SW on board for discharge planning. Encouraged the patient to participate in milieu.
[2020-07-18] MEDS: ACETAMINOPHEN TAB 325 MG TAB PO PRN ×2 (11:56→15:57)
[2020-07-18] MEDS: haloperidoL 5 MG TAB PO PRN (14:17)
[2020-07-18] MEDS: GABAPENTIN 400 MG CAP PO SCH ×2 (15:56→20:24)
[2020-07-18] MEDS: QUEtiapine 200 MG TAB PO SCH (20:24)
[2020-07-19 06:45] VITALS: BP 114/68; PULSE 72; RESP 16; TEMP 97.9
[2020-07-19] MEDS: ASPIRIN 81 MG PO SCH (08:18)
[2020-07-19] MEDS: THIAMINE 100 MG TAB PO SCH (08:18)
[2020-07-19] MEDS: DULoxetine HCL 60 MG CAPSULE.DR PO SCH (08:18)
[2020-07-19] MEDS: GABAPENTIN 400 MG CAP PO SCH (08:18)
[2020-07-19] MEDS: QUEtiapine 50 MG TAB PO SCH (08:18)
[2020-07-19] MEDS: NICOTINE POLACRILEX 2 MG GUM BUCCAL PRN ×2 (08:19→12:11)
--- NOTE | 2020-07-19 09:29 | P.DS ---
Providers Date of admission: 07/14/20 22:59 Expected date of discharge: 07/19/20 Attending physician: Jeovanny Cain MD Consults: 07/14/20 23:44 Consult Physician Routine Consulting Provider: Kelly Sawant Consult Reason/Comments: H and P Do you want consulting provider notified?: Yes Primary care physician: Stated None - Discharge Diagnosis(es) (1) Major depressive disorder, recurrent, severe with psychotic features Current Visit: Yes Status: Acute Priority: High (2) Nicotine dependence Current Visit: Yes Status: Chronic Priority: Medium (3) Alcohol use disorder Current Visit: Yes Status: Chronic Priority: Medium Hospital Course: Admission HPI: Patient is a single, unemployed, 34-year-old male who was admitted for suicidal ideation the context of alcohol use issue nonadherence Patient presented to the hospital on 07/14/2020 for evaluation of alcohol intoxication, fall, and suicidal ideation. The patient reportedly fell a day prior to this admission and reported hitting his face and losing consciousness. The patient was recently discharged from senior care a week ago and since then has not been on any of his prescribed medications. The patient is also been staying in a home that is currently under construction and has no heating or running water. The patient reports that since he was discharged from senior care, he has been feeling "not myself." He reports that his mood has been low and he has been expressing suicidal thoughts. He reports that he did attempt suicide a few days ago by drinking a lot of alcohol and taking a bunch of [id number]-[id number] medications. He endorses significant symptoms of depression including low mood, difficulty sleeping, hopelessness, and helplessness. He denies any homicidal ideation, intention, and/or plan. The patient does endorse auditory hallucinations which she describes as voices that are continuously mocking him. He denies any command type hallucinations. He endorses visual hallucinations which she states is a result of the fall on the ice that he had earlier this week. CT of the hea d and neck was performed in the emergency department and no acute fracture or dislocation was evident in the cervical spine. There was also no acute intracranial hemorrhage or midline shift seen. He reports that he sees occasional flashing lights and colors. The patient denies any paranoia or delusions. The patient does not endorse any significant history of trauma. He states that he was incarcerated for the last 8 months for an assault and battery charge. Prior to leaving senior care, the patient was on a regimen of Zyprexa and Remeron. Hospital course: Upon admission to the unit patient was initially presenting as irritable, uncomfortable, and malaise secondary to alcohol withdrawal. Patient was however directable and agreeable to commence treatment. The patient was started on Librium to address alcohol withdrawal and was restarted on Cymbalta, gabapentin, and Seroquel for management of major depressive disorder with psychotic features. Over the course of the hospitalization, the patient gradually improved in terms of mood, anxiety, and alcohol withdrawal symptoms. His Librium was gradually tapered off all his other medications were gradually titrated to their final doses. The patient behaved appropriately with staff and peers while on the unit. He attended groups. He expressed a strong desire for discharge as he wanted to return back to work. The patient was counseled on substance abuse, especially his alcohol use, and was offered the option for inpatient rehabilitation but is refusing at this time. On the day of discharge, the patient is denying any suicidal or homicidal ideation, intention, and/or plan. He continues to endorse mild auditory hallucinations that appeared to be demeaning in nature but states that this has decreased overall and is manageable. He is not reporting any visual hallucinations. He denies any paranoia or delusions. He has been in adherent with his medications and is not reporting any significant side effects at this time. The patient was counseled on the medications and need for regular compliance was encouraged to follow-up with outpatient appointment for mental health and for primary care. Mental status exam: General Appearance: Patient appears to be stated age is alert, pleasant, and cooperative. Patient is in no acute distress and has fair hygiene and grooming . Patient is a large and ramirez and. Behavior: Patient is calmly seated without any agitated behavior. Normal psychomotor activity. Eye contact is appropriate. Speech: Patient's speech is fluent and nonpressured. Spontaneous, with normal rate, tone, and volume. Mood/Affect: Patient reports their mood is "much better", affect is congruent and euthymic to bright. Suicidality/Homicidality: Patient denies having any suicidal or homicidal ideation intent or plan. Perceptions: Patient continues to endorse auditory hallucinations but denies any visual hallucinations. Though content/process: There is no evidence of any delusional thought content and thought process is linear and goal-directed. Patient is future oriented. Memory and concentration: AOX3, grossly intact for the purposes of this session. Can spell "WORLD" backwards correctly. Judgment and insight: Improved with guarded prognosis Impression: Major depressive disorder, recurrent, severe, with mood congruent psychotic features Alcohol use disorder Nicotine dependence Plan: -Continue with discharge today as patient has improved and stabilized psychiatrically and is not currently an imminent threat to himself and/or others. Patient will remain at chronically elevated risk for harm to self and/or others due to his polysubstance abuse and numerous psychosocial stressors including homelessness. -Continue medications: Cymbalta 60 mg by mouth daily for depression Gabapentin 400 mg by mouth 3 times a day for off label use for anxiety and to address neuropathy Seroquel 50 mg by mouth twice a day and 200 mg by mouth at bedtime for depression with psychotic features Nicorette replacement therapy gum -Patient was counseled on the need for medication compliance and appropriate follow-up at mental health and also primary care for medical issues. Patient verbalized understanding and agreed. -Social work to arrange for and conduct family meeting to ensure safety upon discharge and answer any questions/concerns. Social work also to arrange for patients follow up appointments with [facility] for psychiatric care along with follow up with primary care provider. -Patient counseled on abstaining from recreational drugs and marijuana and alcohol. Was informed/educated on the adverse effects on their physical and mental health. Patient verbally agreed and understood. Patient was offered substance abuse treatment however declined at this time. -Patient was instructed to return to the hospital or seek immediate medical care if their psychiatric or medical symptoms do worsen or reoccur. -Psychoeducation and supportive therapy provided to patient. Risks and benefits of pharmacological treatment versus the risks and benefits of nontreatment weight and discussed. Informed consent discussion held. Common side effects of psychotropics discussed such as, but not limited to headache, GI disturbance, sexual dysfunction, movement disorders, sedation, and orthostatic hypotension. Life threatening and blackbox warnings of prescribed medications also discussed. Potential risks of operating a vehicle or heavy machinery discussed with patient at length. Advised on importance of compliance and a reliable and responsible manner. Patient advised to review FDA consumer labeling of all medications prior to taking. Patient verbalized understanding of potential risks, and agrees with current treatment plan. Patient advised to medically contact physician/emergency personnel if any acute changes in condition occur. Vital Signs Temp 97.9 F 07/19/20 06:44 Pulse 72 07/19/20 06:44 Resp 16 07/19/20 06:44 BP 114/68 07/19/20 06:44 Pulse Ox 98 07/19/20 06:44 Laboratory Results WBC 8.5 k/uL (3.8-10.6) 07/15/20 08:22 RBC 4.60 m/uL (4.30-5.90) 07/15/20 08:22 Hgb 14.1 gm/dL (13.0-17.5) 07/15/20 08:22 Hct 40.2 % (39.0-53.0) 07/15/20 08:22 MCV 87.4 fL (80.0-100.0) 07/15/20 08:22 MCH 30.6 pg (25.0-35.0) 07/15/20 08: MCHC 35.0 g/dL (31.0-37.0) 07/15/20 08:22 RDW 12.5 % (11.5-15.5) 07/15/20 08:22 Plt Count 216 k/uL (150-450) 07/15/20 08:22 MPV 7.0 07/15/20 08:22 Neutrophils % 69 % 07/15/20 08:22 Lymphocytes % 22 % 07/15/20 08:22 Monocytes % 6 % 07/15/20 08:22 Eosinophils % 2 % 07/15/20 08: Basophils % 1 % 07/15/20 08:22 Neutrophils # 5.9 k/uL (1.3-7.7) 07/15/20 08:22 Lymphocytes # 1.9 k/uL (1.0-4.8) 07/15/20 08:22 Monocytes # 0.5 k/uL (0-1.0) 07/15/20 08:22 Eosinophils # 0.1 k/uL (0-0.7) 07/15/20 08:22 Basophils # 0.1 k/uL (0-0.2) 07/15/20 08:22 Sodium 137 mmol/L (137-145) 07/15/20 08:22 Potassium 3.7 mmol/L (3.5-5.1) 07/15/20 08:22 Chloride 103 mmol/L (98-107) 07/15/20 08:22 Carbon Dioxide 26 mmol/L (22-30) 07/15/20 08:22 Anion Gap 8 mmol/L 07/15/20 08:22 BUN 14 mg/dL (9-20) 07/15/20 08:22 Creatinine 0.83 mg/dL (0.66-1.25) 07/15/20 08:22 Est GFR (CKD-EPI)AfAm >90 (>60 ml/min/1.73 sqM) 07/15/20 08:22 Est GFR (CKD-EPI)NonAf >90 (>60 ml/min/1.73 sqM) 07/15/20 08:22 Glucose 114 mg/dL (74-99) H 07/15/20 08:[address] Glu mg/dL 100 07/15/20 08:22 Hemoglobin A1c 5.1 % (4.0-6.0) 07/15/20 08:22 Calcium 8.4 mg/dL (8.4-10.2) 07/15/20 08:22 Magnesium 2.0 mg/dL (1.6-2.3) 07/14/20 13:37 Total Bilirubin 1.3 mg/dL (0.2-1.3) 07/15/20 08:22 AST 61 U/L (17-59) H 07/15/20 08:22 ALT 62 U/L (4-49) H 07/15/20 08:22 Alkaline Phosphatase 81 U/L (38-126) 07/15/20 08:22 Total Protein 6.5 g/dL (6.3-8.2) 07/15/20 08:22 Albumin 3.9 g/dL (3.5-5.0) 07/15/20 08:22 Triglycerides 168 mg/dL (<150) H 07/15/20 08:22 Cholesterol 175 mg/dL (<200) 07/15/20 08:22 LDL Cholesterol, Calc 85 mg/dL (0-99) 07/15/20 08:22 HDL Cholesterol 56 mg/dL (40-60) 07/15/20 08:22 TSH 3.500 mIU/L (0.465-4.680) 07/15/20 08:22 Urine Opiates Screen Not Detected (NotDetected) 07/14/20 13:54 Ur Oxycodone Screen Not Detected (NotDetected) 07/14/20 13:54 Urine Methadone Screen Not Detected (NotDetected) 07/14/20 13:54 Ur Propoxyphene Screen Not Detected (NotDetected) 07/14/20 13:54 Ur Barbiturates Screen Not Detected (NotDetected) 07/14/20 13:54 U Tricyclic Antidepress Not Detected (NotDetected) 07/14/20 13:54 Ur Phencyclidine Scrn Not Detected (NotDetected) 07/14/20 13:54 Ur Amphetamines Screen Not Detected (NotDetected) 07/14/20 13:54 U Methamphetamines Scrn Not Detected (NotDetected) 07/14/20 13:54 U Benzodiazepines Scrn Not Detected (NotDetected) 07/14/20 13:54 Urine Cocaine Screen Not Detected (NotDetected) 07/14/20 13:54 U Marijuana (THC) Screen Detected (NotDetected) H 07/14/20 13:54 Serum Alcohol 215 mg/dL H* 07/14/20 13:37 Coronavirus (PCR) Not Detected (Not Detectd) 07/14/20 23:15 Allergies Allergy/AdvReac Type Severity Reaction Status Date / Time No Known Allergies Allergy Verified 07/14/20 13:03 Patient Condition at Discharge: Stable Plan - Discharge Summary Discharge Rx Participant: Yes New Discharge Prescriptions: New Aspirin 81 mg PO DAILY 30 Days #30 chew DULoxetine HCL [Cymbalta] 60 mg PO DAILY #30 capsule. Gabapentin [Neurontin] 400 mg PO TID #120 cap Nicotine Polacrilex [Nicorette] 2 mg BUCCAL Q4HR PRN 30 Days gum PRN Reason: Nicotine Cravings QUEtiapine [SEROquel] 50 mg PO BID #60 tab QUEtiapine [SEROquel] 200 mg PO HS #30 tab Discharge Medication List Aspirin 81 mg PO DAILY 30 Days #30 chew 07/19/20 [Rx] DULoxetine HCL [Cymbalta] 60 mg PO DAILY #30 capsule. 07/19/20 [Rx] Gabapentin [Neurontin] 400 mg PO TID #120 cap 07/19/20 [Rx] Nicotine Polacrilex [Nicorette] 2 mg BUCCAL Q4HR PRN 30 Days gum 07/19/20 [Rx] QUEtiapine [SEROquel] 50 mg PO BID #60 tab 07/19/20 [Rx] QUEtiapine [SEROquel] 200 mg PO HS #30 tab 07/19/20 [Rx] Follow up Appointment(s)/Referral(s): None,Stated [Primary Care Provider] - 1-2 days Activity/Diet/Wound Care/Special Instructions: Activity and diet as tolerated. Avoid the use of street drugs and alcohol. Take all medications as prescribed. When you are in need of refills on your medications please contact your medical provider and/or outpatient psychiatrist to have this done. Please go to scheduled outpatient appointment for aftercare treatment. If symptoms return or become worse, call the crisis line at and/or go to the nearest emergency room for evaluation. Discharge Disposition: HOME SELF-CARE
[2020-07-19] MEDS: ACETAMINOPHEN TAB 325 MG TAB PO PRN (12:10)
== END 2020-07-19 12:22 | disposition home or self-care (01) | DRG 885 ==
LOC: EC 13:02 → 3MHU 22:59
PROVIDERS: ADMIT Psychiatry & Neurology Psychiatry; ATTEND Psychiatry & Neurology Psychiatry
DX: F33.3 Major depressive disorder, recurrent, severe with psychotic symptoms (principal); R45.851 Suicidal ideations; F10.120 Alcohol abuse with intoxication, uncomplicated; Z20.822 Contact with and (suspected) exposure to COVID-19; F17.210 Nicotine dependence, cigarettes, uncomplicated; F41.9 Anxiety disorder, unspecified; G89.29 Other chronic pain; M54.9 Dorsalgia, unspecified; G62.9 Polyneuropathy, unspecified; Y90.7 Blood alcohol level of 200-239 mg/100 ml; W00.0XXA Fall on same level due to ice and snow, initial encounter; Z71.6 Tobacco abuse counseling; Z59.0 Homelessness; Z91.83 Wandering in diseases classified elsewhere; Z86.718 Personal history of other venous thrombosis and embolism; Z98.890 Other specified postprocedural states; Z56.0 Unemployment, unspecified; Z91.5 Personal history of self-harm; Z82.3 Family history of stroke
CPT/HCPCS: 36415; 70450; 72125; 80053; 80061; 80306; 80320; 82075; 83036; 83735; 84443; 85025; 87635; 93005; 96361; 96374; 96375; 96376; 99285

== ENCOUNTER 2020-07-19 19:09 | Emergency (ER) | payer OTHER ==
[2020-07-19 19:16] VITALS: RESP 16; TEMP 98.7
[2020-07-19] MEDS ORDERED: LIDOCAINE 1% INJ 10MG/ML (20 ML MDV) SQ STA (19:26)
[2020-07-19] MEDS ORDERED: DIPH,PERTUS(ACELL)TETVAC-LF 0.5 ML VIAL IM ONE (19:26)
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
[2020-07-19] MEDS: LIDOCAINE 1%-EPI 1:100,000 20 ML VIAL SQ STA ×2 (19:57→22:14)
--- NOTE | 2020-07-19 20:09 | XR ---
EXAMINATION TYPE: XR hand complete RT DATE OF EXAM: 07/19/2020 CLINICAL HISTORY: Laceration with pain. TECHNIQUE: Frontal, lateral and oblique images of the right hand are obtained. COMPARISON: None. FINDINGS: There is no acute fracture/dislocation evident in the right hand. There are scattered mild degenerative changes. No radiopaque foreign body. IMPRESSION: There is no acute fracture or dislocation. No radiopaque foreign body.
[2020-07-19] MEDS ORDERED: CEPHALEXIN 500 MG CAP PO STA (20:34)
[2020-07-19] MEDS: LORazepam 2 MG/ML INJ IM STA ×2 (20:48→20:49)
[2020-07-20 00:47] VITALS: BP 112/72; PULSE 105
== END 2020-07-20 00:43 | disposition home or self-care (01) ==
LOC: EC 19:09
DX: S61.411A Laceration without foreign body of right hand, initial encounter (principal); F17.200 Nicotine dependence, unspecified, uncomplicated; Z86.718 Personal history of other venous thrombosis and embolism; Z23 Encounter for immunization; X99.8XXA Assault by other sharp object, initial encounter; Y93.89 Activity, other specified; Y92.89 Other specified places as the place of occurrence of the external cause
CPT/HCPCS: 82075; 73130; 90715; 99283; 12002; 90471; 96372; J2060; J2001

== ENCOUNTER 2020-07-29 01:00 | Emergency (ER) | payer OTHER ==
[2020-07-29 01:07] VITALS: BP 153/100; PULSE 95; RESP 18; TEMP 99.1
[2020-07-29] MEDS ORDERED: ACETAMINOPHEN TAB 500 MG TAB PO STA (01:18)
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
--- NOTE | 2020-07-29 01:47 | CT ---
EXAM: CT Head Without Intravenous Contrast CLINICAL HISTORY: ITS.REASON CT Reason: Head injury TECHNIQUE: Axial computed tomography images of the head/brain without intravenous contrast. CTDI is 26.435 mGy and DLP is 700.4 mGy-cm. This CT exam was performed using one or more of the following dose reduction techniques: automated exposure control, adjustment of the mA and/or kV according to patient size, and/or use of iterative reconstruction technique. COMPARISON: 07/13/2020 FINDINGS: Brain: No acute infarct, hemorrhage, mass or edema. Ventricles: Unremarkable. No ventriculomegaly. Bones/joints: Unremarkable. No acute calvarial fracture. Soft tissues: Left frontal scalp soft tissue swelling with overlying skin ronny, likely post traumatic. Sinuses: Unremarkable as visualized. Mastoid air cells: Unremarkable as visualized. IMPRESSION: 1. No acute infarct, hemorrhage, mass or edema. 2. Left frontal scalp soft tissue swelling with overlying skin ronny, likely post traumatic. EXAM: CT Cervical Spine Without Intravenous Contrast CLINICAL HISTORY: ITS.REASON CT Reason: Head injury TECHNIQUE: Axial computed tomography images of the cervical spine without intravenous contrast. CTDI is 26.435 mGy and DLP is 700.4 mGy-cm. This CT exam was performed using one or more of the following dose reduction techniques: automated exposure control, adjustment of the mA and/or kV according to patient size, and/or use of iterative reconstruction technique. COMPARISON: No relevant prior studies available. FINDINGS: Vertebrae: No acute fracture or traumatic malalignment. There is straightening of the normal cervical lordosis, likely positional. Discs/spinal canal/neural foramina: No acute findings. No significant spinal canal or neuroforaminal stenosis. Soft tissues: Unremarkable. IMPRESSION: No acute findings in the cervical spine.
[2020-07-29] MEDS ORDERED: KETOROLAC 15 MG/ML 1 ML VIAL IM STA (01:53)
== END 2020-07-29 02:01 | disposition home or self-care (01) ==
LOC: EC 01:00
DX: S01.01XA Laceration without foreign body of scalp, initial encounter (principal); F17.200 Nicotine dependence, unspecified, uncomplicated; F10.129 Alcohol abuse with intoxication, unspecified; Y90.9 Presence of alcohol in blood, level not specified; X58.XXXA Exposure to other specified factors, initial encounter
CPT/HCPCS: 72125; 70450; 99284; 96372; 12002; J1885

== ENCOUNTER 2020-07-29 04:37 | Inpatient (IN) | payer MEDICAID, OTHER ==
[2020-07-29] MEDS ORDERED: HYDROcodone/APAP 5-325MG 1 EACH TAB PO STA (05:06)
[2020-07-29] MEDS ORDERED: IBUPROFEN 400 MG TAB PO STA (05:07)
[2020-07-29 05:45] LABS: Amphetamine Screen,Urine Not Detected (NotDetected); Barbiturate Screen,Urine Not Detected (NotDetected); Benzodiazepines Screen,Urine Detected (NotDetected); Cocaine Screen,Urine Not Detected (NotDetected); Methadone Screen, Urine Not Detected (NotDetected); Opiate Screen,Urine Not Detected (NotDetected); Oxycodone Screen, Urine Not Detected (NotDetected); Phencyclidine Screen,Urine Not Detected (NotDetected); Tricyclic Antidepressant,Urine Not Detected (NotDetected); Urn Cannabinoid Scrn Not Detected (NotDetected)
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
[2020-07-29] MEDS ORDERED: ACETAMINOPHEN TAB 500 MG TAB PO STA (14:36)
[2020-07-29] MEDS ORDERED: MAGNESIUM HYDROXIDE 2,400 MG/10 ML CUP PO PRN (15:48)
[2020-07-29] MEDS ORDERED: ACETAMINOPHEN TAB 325 MG TAB PO PRN (15:48)
[2020-07-29] MEDS ORDERED: MAG HYDROX/AL HYDROX/SIMETH 30 ML CUP PO PRN (15:48)
[2020-07-29] MEDS ORDERED: LORazepam 1 MG TAB PO PRN (15:48)
[2020-07-29] MEDS ORDERED: LORazepam 2 MG/ML INJ IM PRN (15:55)
[2020-07-29] MEDS ORDERED: HALOPERIDOL LACTATE 5 MG/ML 1 ML VIAL IM SCH (16:00)
[2020-07-29] MEDS: GABAPENTIN 400 MG CAP PO SCH ×2 (17:14→22:14)
[2020-07-29] MEDS: NICOTINE 14MG/24HR PATCH TRANSDERM SCH (17:26)
[2020-07-29] MEDS ORDERED: ONDANSETRON ODT 4 MG TAB PO PRN (18:02)
[2020-07-29 18:17] LABS: HCT 39.1 % (39.0-53.0); HGB 13.2 gm/dL (13.0-17.5); MCH 30.9 pg (25.0-35.0); MCHC 33.7 g/dL (31.0-37.0); MCV 91.6 fL (80.0-100.0); Mean Platelet Volume 6.6; Platelet Count 344 k/uL (150-450); RBC 4.27 m/uL (4.30-5.90); RDW 13.9 % (11.5-15.5); WBC 8.2 k/uL (3.8-10.6)
[2020-07-29] MEDS ORDERED: HALOPERIDOL LACTATE 5 MG/ML 1 ML VIAL IM PRN (18:25)
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
[2020-07-29 18:28] LABS: ALT 56 U/L (4-49); AST 47 U/L (17-59); African American GFR (CKD) >90 (>60 ml/min/1.73 sqM); Albumin 4.1 g/dL (3.5-5.0); Alkaline Phosphatase 92 U/L (38-126); Anion Gap 8 mmol/L; Blood Urea Nitrogen 9 mg/dL (9-20); Calcium 8.7 mg/dL (8.4-10.2); Carbon Dioxide 24 mmol/L (22-30); Chloride 105 mmol/L (98-107); Glucose 117 mg/dL (74-99); Non-African American GFR(CKD) >90 (>60 ml/min/1.73 sqM); Potassium 4.2 mmol/L (3.5-5.1); Sodium 137 mmol/L (137-145); Total Bilirubin 0.3 mg/dL (0.2-1.3); Total Protein 6.9 g/dL (6.3-8.2)
[2020-07-29 18:50] LABS: Partial Thromboplastin Time 21.7 sec (22.0-30.0); Prothrombin Time 10.3 sec (9.0-12.0)
[2020-07-29] MEDS: QUEtiapine 50 MG TAB PO SCH (19:05)
[2020-07-29] MEDS: CEPHALEXIN 500 MG CAP PO SCH ×2 (19:05→22:14)
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
[2020-07-29] MEDS: HYDROcodone/APAP 5-325MG 1 EACH TAB PO PRN (20:44)
[2020-07-29] MEDS ORDERED: QUEtiapine 200 MG TAB PO SCH (21:00)
[2020-07-29] MEDS: MUPIROCIN 2% OINT 22 GM TUBE TOPICAL SCH (22:14)
[2020-07-30] MEDS: ASPIRIN 81 MG PO SCH (08:08)
[2020-07-30] MEDS: CEPHALEXIN 500 MG CAP PO SCH ×4 (08:08→21:23)
[2020-07-30] MEDS: QUEtiapine 50 MG TAB PO SCH ×2 (08:08→16:00)
[2020-07-30] MEDS: NICOTINE 14MG/24HR PATCH TRANSDERM SCH (08:08)
[2020-07-30] MEDS: DULoxetine HCL 60 MG CAPSULE.DR PO SCH (08:08)
[2020-07-30] MEDS: MUPIROCIN 2% OINT 22 GM TUBE TOPICAL SCH ×3 (08:09→21:25)
[2020-07-30] MEDS: GABAPENTIN 400 MG CAP PO SCH (08:11)
[2020-07-30] MEDS: HYDROcodone/APAP 5-325MG 1 EACH TAB PO PRN ×4 (08:11→21:21)
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
[2020-07-30] MEDS: NICOTINE POLACRILEX 2 MG GUM BUCCAL PRN ×3 (14:08→21:22)
[2020-07-30 15:33] LABS: Hemoglobin A1C 4.8 % (4.0-6.0)
[2020-07-30] MEDS: GABAPENTIN 300 MG CAP PO SCH ×2 (16:01→21:22)
[2020-07-30] MEDS ORDERED: QUEtiapine 100 MG TAB PO SCH (21:00)
[2020-07-31] MEDS: DULoxetine HCL 60 MG CAPSULE.DR PO SCH (08:10)
[2020-07-31] MEDS: ASPIRIN 81 MG PO SCH (08:10)
[2020-07-31] MEDS: CEPHALEXIN 500 MG CAP PO SCH ×4 (08:10→21:01)
[2020-07-31] MEDS: GABAPENTIN 300 MG CAP PO SCH ×3 (08:11→21:03)
[2020-07-31] MEDS: NICOTINE 14MG/24HR PATCH TRANSDERM SCH (08:12)
[2020-07-31] MEDS: HYDROcodone/APAP 5-325MG 1 EACH TAB PO PRN ×3 (08:12→17:49)
[2020-07-31] MEDS: QUEtiapine 50 MG TAB PO SCH ×2 (08:12→16:55)
[2020-07-31] MEDS: NICOTINE POLACRILEX 2 MG GUM BUCCAL PRN ×3 (08:14→17:50)
[2020-07-31] MEDS: MUPIROCIN 2% OINT 22 GM TUBE TOPICAL SCH ×3 (09:39→21:01)
--- NOTE | 2020-07-31 10:13 | P.PN ---
Progress Note - Text Progress Note Date: 07/31/20 Interval History: Patient was seen resting in bed and was directable and agreeable to speak with the repairer typewriter. Patient reports that he is not feeling so well. He states he is feeling nauseous despite taking some Zofran. The patient states that his last drink was 2 days ago. He reported drinking a pint of liquor and a few tall boys of beer. Despite possible concerns for withdrawal, the patient's vital signs have been stable. The patient has been in adherent with his medications and not reporting any significant side effects. He is not reporting any suicidal or homicidal ideation, intention, and/or plan. He is not reporting any auditory or visual hallucinations. He denies any paranoia or delusions. He reports difficulty with sleep. Mental Status Exam: General Appearance: Patient appears to be stated age is alert, directable, and attempts to cooperate. Patient appears to have fair hygiene and grooming. He is a ramirez and large man. He has a noticeable laceration on his head. Behavior: Patient is calmly lying in bed without any agitated behavior. Psycho motor activity appears normal. Eye contact is appropriate. Speech: Patient's speech is fluent and nonpressured. Spontaneous but monotone. Mood/Affect: Patient reports their mood is "feeling sick." Affect does appear malaised. Suicidality/Homicidality: Patient is not reporting any suicidal or homicidal ideation, intention, and/or plan. Perceptions: Patient denies any visual hallucinations and denies any auditory hallucinations Though content/process: There is no evidence of any delusional thought content and thought process is linear and goal-directed. Memory and concentration: AOX3, grossly intact for the purposes of this session. Can spell "WORLD" backwards Judgment and insight: Improving mildly. Assessment Major depressive disorder, recurrent, severe, with mood congruent psychotic features Alcohol use disorder Nicotine dependence Plan: -Patient continues to meet criteria for inpatient psychiatric admission for symptom stabilization and safety. Patient has signed adult voluntary form and medication consent and was placed in patient's chart. -Medications: Cymbalta 60 mg by mouth daily for depression Gabapentin increased to 600 mg by mouth 3 times a day for off label use for anxiety and to address neuropathy Seroquel 50 mg by mouth twice a day and increase nightly dose to 300 mg by mouth at bedtime for depression with psychotic features -We will not start CIWA protocol at this time. Suspect secondary gain. Vitals have been stable. -When necessary Ativan and Haldol for agitation/aggression. -NRT - nicotine patch and nicorette gum -SW on board for discharge planning. Encouraged the patient to participate in milieu.
[2020-07-31] MEDS: QUEtiapine 100 MG TAB PO SCH (21:01)
[2020-08-01] MEDS: DULoxetine HCL 60 MG CAPSULE.DR PO SCH (08:55)
[2020-08-01] MEDS: ASPIRIN 81 MG PO SCH (08:55)
[2020-08-01] MEDS: CEPHALEXIN 500 MG CAP PO SCH ×5 (08:55→20:46)
[2020-08-01] MEDS: QUEtiapine 50 MG TAB PO SCH ×2 (08:56→16:43)
[2020-08-01] MEDS: NICOTINE 14MG/24HR PATCH TRANSDERM SCH (08:56)
[2020-08-01] MEDS: GABAPENTIN 300 MG CAP PO SCH ×3 (08:58→20:45)
[2020-08-01] MEDS: NICOTINE POLACRILEX 2 MG GUM BUCCAL PRN ×3 (08:58→18:09)
[2020-08-01] MEDS: MUPIROCIN 2% OINT 22 GM TUBE TOPICAL SCH ×3 (08:58→20:45)
[2020-08-01] MEDS: HYDROcodone/APAP 5-325MG 1 EACH TAB PO PRN ×2 (08:59→18:09)
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
[2020-08-01 12:28] VITALS: RESP 20
[2020-08-01 15:16] VITALS: TEMP 97.4
[2020-08-01 18:13] VITALS: BP 141/90; PULSE 104
[2020-08-01] MEDS: QUEtiapine 100 MG TAB PO SCH (20:45)
[2020-08-02] MEDS: CEPHALEXIN 500 MG CAP PO SCH (08:35)
[2020-08-02] MEDS: DULoxetine HCL 60 MG CAPSULE.DR PO SCH (08:35)
[2020-08-02] MEDS: ASPIRIN 81 MG PO SCH (08:35)
[2020-08-02] MEDS: GABAPENTIN 300 MG CAP PO SCH (08:36)
[2020-08-02] MEDS: QUEtiapine 50 MG TAB PO SCH (08:36)
[2020-08-02] MEDS: HYDROcodone/APAP 5-325MG 1 EACH TAB PO PRN ×2 (08:38→12:22)
[2020-08-02] MEDS: NICOTINE POLACRILEX 2 MG GUM BUCCAL PRN ×2 (08:41→12:23)
[2020-08-02] MEDS: MUPIROCIN 2% OINT 22 GM TUBE TOPICAL SCH (09:46)
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
== END 2020-08-02 12:32 | disposition home or self-care (01) | DRG 897 ==
LOC: EC 04:37 → 3MHU 15:46
PROVIDERS: ADMIT Psychiatry & Neurology Psychiatry; ATTEND Psychiatry & Neurology Psychiatry
DX: F19.94 Other psychoactive substance use, unspecified with psychoactive substance-induced mood disorder (principal); S06.0X9A Concussion with loss of consciousness of unspecified duration, initial encounter; R45.851 Suicidal ideations; F10.229 Alcohol dependence with intoxication, unspecified; F10.239 Alcohol dependence with withdrawal, unspecified; F12.90 Cannabis use, unspecified, uncomplicated; Y00.XXXA Assault by blunt object, initial encounter; S01.01XA Laceration without foreign body of scalp, initial encounter; R45.850 Homicidal ideations; F31.9 Bipolar disorder, unspecified; Z20.822 Contact with and (suspected) exposure to COVID-19; F17.210 Nicotine dependence, cigarettes, uncomplicated; Z79.82 Long term (current) use of aspirin; Z59.0 Homelessness; Z86.718 Personal history of other venous thrombosis and embolism; Z87.820 Personal history of traumatic brain injury; Z91.5 Personal history of self-harm; Z56.0 Unemployment, unspecified; Z82.3 Family history of stroke
CPT/HCPCS: 72072; 74150; 80053; 80061; 80306; 82075; 83036; 84443; 85027; 85610; 85730; 87635; 99285

== ENCOUNTER 2020-08-12 14:55 | Emergency (ER) | payer OTHER ==
[2020-08-12 15:14] VITALS: BP 141/88; PULSE 101; RESP 20; TEMP 98.4
[2020-08-12] MEDS ORDERED: HYDROmorphone 1 MG/ML 1 ML SYRINGE IM STA (15:48)
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
--- NOTE | 2020-08-12 16:21 | XR ---
Lumbar spine HISTORY: Back pain, trauma 3 views the lumbar spine correlated to CT 06/27/2019, lumbar spine dated 09/18/2011 Bilateral spondylol ysis present at L5. Spinal curvature could be positional. Lumbar vertebral bodies show preserved heig ht and alignment. Disc spaces mildly reduced at L3-4, is associated spondylosis. IMPRESSION: Spondylolysis bilaterally at L5 is noted on CT, no significant listhesis. Mild degenerati ve disc changes.
[2020-08-12] MEDS ORDERED: predniSONE 20 MG TAB PO STA (16:25)
== END 2020-08-12 16:55 | disposition home or self-care (01) ==
LOC: EC 14:55
DX: M54.16 Radiculopathy, lumbar region (principal); F17.200 Nicotine dependence, unspecified, uncomplicated; Z86.718 Personal history of other venous thrombosis and embolism; Z79.82 Long term (current) use of aspirin
CPT/HCPCS: 99283; 96372; 72100; J1170; J7512

== ENCOUNTER 2020-08-22 16:41 | Inpatient (IN) | payer OTHER ==
[2020-08-22] MEDS ORDERED: SODIUM CHLORIDE 0.9% 1,000 ML IV ONE ×2 (17:09→19:08)
[2020-08-22] MEDS ORDERED: LORazepam 2 MG/ML INJ IV STA (17:09)
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
[2020-08-22] MEDS ORDERED: ONDANSETRON 4 MG/2 ML VIAL IVP STA (17:23)
[2020-08-22] MEDS ORDERED: SODIUM CHLORIDE 0.9% 1,000 ML with MVI, ADULT NO.4 WITH VIT K 10 ML, THIAMINE 100 MG, F... IV ONE ×4 (18:00)
[2020-08-22 18:04] LABS: Basophils # (A) 0.1 k/uL (0-0.2); Basophils % (A) 1 %; Eosinophils # (A) 0.1 k/uL (0-0.7); Eosinophils % (A) 1 %; HCT 47.1 % (39.0-53.0); HGB 15.7 gm/dL (13.0-17.5); Lymphocytes # (A) 2.5 k/uL (1.0-4.8); Lymphocytes % (A) 24 %; MCH 30.1 pg (25.0-35.0); MCHC 33.3 g/dL (31.0-37.0); MCV 90.4 fL (80.0-100.0); Mean Platelet Volume 6.9; Monocytes # (A) 0.4 k/uL (0-1.0); Monocytes % (A) 4 %; Neutrophils # (A) 7.1 k/uL (1.3-7.7); Neutrophils % (A) 68 %; Platelet Count 465 k/uL (150-450); RBC 5.21 m/uL (4.30-5.90); RDW 12.9 % (11.5-15.5); WBC 10.4 k/uL (3.8-10.6)
[2020-08-22 18:13] LABS: Amphetamine Screen,Urine Not Detected (NotDetected); Barbiturate Screen,Urine Not Detected (NotDetected); Benzodiazepines Screen,Urine Not Detected (NotDetected); Cocaine Screen,Urine Not Detected (NotDetected); Methadone Screen, Urine Not Detected (NotDetected); Opiate Screen,Urine Not Detected (NotDetected); Oxycodone Screen, Urine Not Detected (NotDetected); Phencyclidine Screen,Urine Not Detected (NotDetected); Tricyclic Antidepressant,Urine Not Detected (NotDetected); Urn Cannabinoid Scrn Not Detected (NotDetected)
[2020-08-22 18:19] LABS: ALT 34 U/L (4-49); AST 40 U/L (17-59); African American GFR (CKD) >90 (>60 ml/min/1.73 sqM); Alkaline Phosphatase 148 U/L (38-126); Anion Gap 19 mmol/L; Blood Urea Nitrogen 11 mg/dL (9-20); Calcium 9.4 mg/dL (8.4-10.2); Carbon Dioxide 22 mmol/L (22-30); Chloride 103 mmol/L (98-107); Glucose 110 mg/dL (74-99); Non-African American GFR(CKD) >90 (>60 ml/min/1.73 sqM); Potassium 4.4 mmol/L (3.5-5.1); Sodium 144 mmol/L (137-145); Total Bilirubin 0.4 mg/dL (0.2-1.3); Total Protein 8.1 g/dL (6.3-8.2)
[2020-08-22 18:32] LABS: Alcohol 362 mg/dL
[2020-08-22] MEDS ORDERED: THIAMINE 100 MG/ML 2 ML VIAL IM STA (19:10)
[2020-08-22] MEDS ORDERED: LORazepam 2 MG/ML INJ IV PRN (19:10)
[2020-08-23] MEDS: LORazepam 2 MG/ML INJ IV PRN ×9 (01:19→21:11)
[2020-08-23] MEDS: ONDANSETRON 4 MG/2 ML VIAL IVP PRN ×2 (07:45→16:40)
[2020-08-23] MEDS ORDERED: NICOTINE POLACRILEX 2 MG GUM BUCCAL PRN (12:24)
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
[2020-08-23] MEDS: PANTOPRAZOLE 40 MG/10 ML VIAL IVP SCH ×2 (12:31→21:10)
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
[2020-08-23] MEDS: HYDROcodone/APAP 7.5-325MG 1 EACH TAB PO PRN (14:16)
[2020-08-23] MEDS: MUPIROCIN 2% OINT 22 GM TUBE TOPICAL SCH ×2 (16:29→22:10)
[2020-08-23] MEDS: chlordiazePOXIDE 25 MG CAP PO SCH ×2 (16:29→21:10)
[2020-08-23] MEDS: GABAPENTIN 300 MG CAP PO SCH ×2 (16:29→21:10)
[2020-08-23] MEDS ORDERED: QUEtiapine 200 MG TAB PO SCH (21:00)
[2020-08-23] MEDS: QUEtiapine 50 MG TAB PO SCH (21:52)
[2020-08-24 04:15] VITALS: RESP 18
[2020-08-24] MEDS: PANTOPRAZOLE 40 MG/10 ML VIAL IVP SCH (07:38)
[2020-08-24] MEDS: chlordiazePOXIDE 25 MG CAP PO SCH ×2 (07:38→15:27)
[2020-08-24] MEDS: GABAPENTIN 300 MG CAP PO SCH ×2 (07:39→15:27)
[2020-08-24] MEDS: HYDROcodone/APAP 7.5-325MG 1 EACH TAB PO PRN ×2 (07:40→14:29)
[2020-08-24] MEDS ORDERED: ASPIRIN 81 MG PO SCH (09:00)
[2020-08-24] MEDS ORDERED: DULoxetine HCL 60 MG CAPSULE.DR PO SCH (09:00)
[2020-08-24] MEDS: MUPIROCIN 2% OINT 22 GM TUBE TOPICAL SCH ×2 (10:08→15:14)
[2020-08-24] MEDS: QUEtiapine 50 MG TAB PO SCH (10:12)
[2020-08-24 11:37] VITALS: BMI 42.5
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
[2020-08-24 14:56] VITALS: BP 130/72; PULSE 90; TEMP 98.2
[2020-08-24] MEDS ORDERED: MAGNESIUM HYDROXIDE 2,400 MG/10 ML CUP PO PRN (17:59)
[2020-08-24] MEDS ORDERED: ACETAMINOPHEN TAB 325 MG TAB PO PRN (17:59)
[2020-08-24] MEDS ORDERED: MAG HYDROX/AL HYDROX/SIMETH 30 ML CUP PO PRN (17:59)
[2020-08-24] MEDS ORDERED: PANTOPRAZOLE 40 MG TABLET PO SCH (21:00)
== END 2020-08-24 18:04 | DRG 392 ==
LOC: EC 16:41 → 5NMEDONC 19:11 → OBSVTOIN 08-23 14:37 → 5NMEDONC 08-23 15:03
PROVIDERS: ADMIT Hospitalist; ATTEND Hospitalist
DX: K29.20 Alcoholic gastritis without bleeding (principal); F10.139 Alcohol abuse with withdrawal, unspecified; F10.10 Alcohol abuse, uncomplicated; R45.850 Homicidal ideations; M54.5 Low back pain; G62.9 Polyneuropathy, unspecified; F31.9 Bipolar disorder, unspecified; F17.200 Nicotine dependence, unspecified, uncomplicated; Y90.8 Blood alcohol level of 240 mg/100 ml or more; Z79.82 Long term (current) use of aspirin; Z79.899 Other long term (current) drug therapy; F41.9 Anxiety disorder, unspecified
CPT/HCPCS: 36415; 80053; 80306; 80320; 82075; 85025; 87635

== ENCOUNTER 2020-08-24 17:41 | Inpatient (IN) | payer MEDICAID, OTHER ==
[2020-08-24] MEDS ORDERED: MAG HYDROX/AL HYDROX/SIMETH 30 ML CUP PO PRN (18:24)
[2020-08-24] MEDS ORDERED: MAGNESIUM HYDROXIDE 2,400 MG/10 ML CUP PO PRN (18:24)
[2020-08-24] MEDS ORDERED: LORazepam 2 MG/ML INJ IM PRN (18:32)
[2020-08-24] MEDS ORDERED: HALOPERIDOL LACTATE 5 MG/ML 1 ML VIAL IM PRN (18:41)
[2020-08-24] MEDS: PANTOPRAZOLE 40 MG TABLET PO SCH (18:53)
[2020-08-24] MEDS: NICOTINE POLACRILEX 2 MG GUM BUCCAL PRN (19:31)
[2020-08-24] MEDS: chlordiazePOXIDE 25 MG CAP PO SCH (20:49)
[2020-08-24] MEDS: GABAPENTIN 300 MG CAP PO SCH (20:49)
[2020-08-24] MEDS: QUEtiapine 200 MG TAB PO SCH (20:49)
[2020-08-24] MEDS: HYDROcodone/APAP 7.5-325MG 1 EACH TAB PO PRN (20:49)
[2020-08-24] MEDS: QUEtiapine 50 MG TAB PO SCH (20:49)
[2020-08-25] MEDS: LORazepam 1 MG TAB PO PRN ×2 (02:37→22:23)
[2020-08-25] MEDS: ASPIRIN 81 MG PO SCH (08:24)
[2020-08-25] MEDS: PANTOPRAZOLE 40 MG TABLET PO SCH ×2 (08:24→17:38)
[2020-08-25] MEDS: chlordiazePOXIDE 25 MG CAP PO SCH ×2 (08:24→20:56)
[2020-08-25] MEDS: DULoxetine HCL 60 MG CAPSULE.DR PO SCH (08:24)
[2020-08-25] MEDS: QUEtiapine 50 MG TAB PO SCH ×2 (08:24→20:57)
[2020-08-25] MEDS: GABAPENTIN 300 MG CAP PO SCH ×3 (08:25→20:57)
[2020-08-25] MEDS: HYDROcodone/APAP 7.5-325MG 1 EACH TAB PO PRN ×2 (08:26→16:39)
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
[2020-08-25] MEDS: NICOTINE POLACRILEX 2 MG GUM BUCCAL PRN ×2 (16:39→20:05)
[2020-08-25] MEDS: ACETAMINOPHEN TAB 325 MG TAB PO PRN (17:39)
[2020-08-25 20:57] LABS: Hemoglobin A1C 4.3 % (4.0-6.0)
[2020-08-25] MEDS: QUEtiapine 200 MG TAB PO SCH (20:57)
[2020-08-25] MEDS: DULoxetine HCL 30 MG CAPSULE.DR PO SCH (20:57)
[2020-08-26] MEDS: HYDROcodone/APAP 7.5-325MG 1 EACH TAB PO PRN ×2 (08:44→17:09)
[2020-08-26] MEDS: DULoxetine HCL 60 MG CAPSULE.DR PO SCH (08:45)
[2020-08-26] MEDS: PANTOPRAZOLE 40 MG TABLET PO SCH ×2 (08:45→17:08)
[2020-08-26] MEDS: GABAPENTIN 300 MG CAP PO SCH ×3 (08:45→20:56)
[2020-08-26] MEDS: QUEtiapine 50 MG TAB PO SCH ×2 (08:45→20:56)
[2020-08-26] MEDS: ASPIRIN 81 MG PO SCH (08:45)
[2020-08-26] MEDS: chlordiazePOXIDE 25 MG CAP PO SCH ×4 (08:45→20:56)
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
[2020-08-26] MEDS: ACETAMINOPHEN TAB 325 MG TAB PO PRN (13:05)
[2020-08-26] MEDS: LORazepam 1 MG TAB PO PRN (17:08)
[2020-08-26] MEDS: NICOTINE POLACRILEX 2 MG GUM BUCCAL PRN (17:12)
[2020-08-26] MEDS: DULoxetine HCL 30 MG CAPSULE.DR PO SCH (20:56)
[2020-08-26] MEDS: QUEtiapine 200 MG TAB PO SCH (20:56)
[2020-08-27] MEDS: ACETAMINOPHEN TAB 325 MG TAB PO PRN (01:17)
[2020-08-27] MEDS: NICOTINE POLACRILEX 2 MG GUM BUCCAL PRN ×2 (01:20→21:12)
[2020-08-27] MEDS: HYDROcodone/APAP 7.5-325MG 1 EACH TAB PO PRN ×2 (07:04→15:56)
[2020-08-27] MEDS: LORazepam 1 MG TAB PO PRN ×2 (07:04→21:09)
[2020-08-27] MEDS: GABAPENTIN 300 MG CAP PO SCH ×3 (08:40→21:09)
[2020-08-27] MEDS: chlordiazePOXIDE 25 MG CAP PO SCH ×3 (08:41→21:10)
[2020-08-27] MEDS: DULoxetine HCL 60 MG CAPSULE.DR PO SCH (08:41)
[2020-08-27] MEDS: QUEtiapine 50 MG TAB PO SCH ×2 (08:41→21:09)
[2020-08-27] MEDS: PANTOPRAZOLE 40 MG TABLET PO SCH ×2 (08:41→17:33)
[2020-08-27] MEDS: ASPIRIN 81 MG PO SCH (08:41)
[2020-08-27] MEDS ORDERED: IBUPROFEN 800 MG TAB PO PRN (14:17)
--- NOTE | 2020-08-27 14:22 | P.PN ---
Progress Note - Text Progress Note Date: 08/27/20 Clinical Problems: Alcohol withdrawal, alcohol use disorder severe, alcohol induced mood disorder, rule out major depressive disorder severe, chronic low back pain, tobacco use Interim history: I reviewed the medical record and interviewed the patient. He complained primarily of back pain that is not relieved by combination of Narco and Tylenol. As a result back pain he is unable to obtain a restful night of sleep. In addition he described continued alcohol withdrawal symptoms including malaise, nausea and diarrhea. He feels depressed, hopeless and helpless but denied thoughts of or suicide. He is not attending therapeutic groups and activities. He complains unable to attend the groups due to his back pain. According to the nurses sleep log he slept only 4 hours last night. He spends his time in bed coming out for meals her medications. Mental status exam: He presented as a tall moderately obese 34-year-old male who appeared sedated and lethargic. He made eye contact and appeared to concentrate and attend to the interview.. He had a flat facial expression. He had marked psychomotor slight retardation. Her speech was not spontaneous and had decreased rate and rhythm. His affect was depressed and not reactive. He did not express suicidal ideation or wishes. He did not express ideas reference, paranoid ideation or delusions. His thinking was concrete but his associations were coherent and logical. He expressed possible auditory hallucinations but did not appear to be responding to internal stimuli. Assessment: He is complained of continued back pain unrelieved with combination Narco and acetaminophen. He continues to have mild alcohol withdrawal symptoms and continued feelings of depression. Plan: Continue inpatient treatment. Safety precautions. Continue CIWA with Ativan. Decrease Librium to 50 mg 3 times a day. Continue current dose of Seroquel and Cymbalta. Continue Narco, gabapentin and Tylenol for back pain. Begin Motrin 800 mg by mouth 4 times a day when necessary for back pain. Nicotine for smoking cessation. Encouraged her to therapeutic groups and activities as tolerated. Evaluate clinical status response to treatment daily basis.
[2020-08-27] MEDS: QUEtiapine 200 MG TAB PO SCH (21:09)
[2020-08-27] MEDS: DULoxetine HCL 30 MG CAPSULE.DR PO SCH (21:09)
[2020-08-28] MEDS: ASPIRIN 81 MG PO SCH (08:34)
[2020-08-28] MEDS: HYDROcodone/APAP 7.5-325MG 1 EACH TAB PO PRN ×2 (08:34→17:54)
[2020-08-28] MEDS: QUEtiapine 50 MG TAB PO SCH ×2 (08:34→21:03)
[2020-08-28] MEDS: chlordiazePOXIDE 25 MG CAP PO SCH ×2 (08:35→21:03)
[2020-08-28] MEDS: DULoxetine HCL 60 MG CAPSULE.DR PO SCH (08:35)
[2020-08-28] MEDS: GABAPENTIN 300 MG CAP PO SCH ×3 (08:35→21:03)
[2020-08-28] MEDS: PANTOPRAZOLE 40 MG TABLET PO SCH ×2 (08:35→17:50)
[2020-08-28] MEDS: NICOTINE POLACRILEX 2 MG GUM BUCCAL PRN (11:55)
[2020-08-28] MEDS: LORazepam 1 MG TAB PO PRN ×2 (11:55→21:03)
--- NOTE | 2020-08-28 13:48 | P.PN ---
Progress Note - Text Progress Note Date: 08/28/20 Clinical Problems: Alcohol withdrawal, alcohol use disorder severe, alcohol induced mood disorder, rule out major depressive disorder severe, chronic low back pain, tobacco use Interim history: I reviewed the medical record and interviewed the patient. He complained of poor sleep and continued back pain unrelieved by his current medications. He did not try Motrin that I prescribed yesterday. Instead, he attempted to negotiate a higher dose [place] and gabapentin. He is complaining of poor sleep and was slept 4 hours last night but is sleeping frequently during the daytime. He denied alcohol withdrawal symptoms. He CIWA scores over the last 24 hours range from 0-2. Mental status exam: He presented as a tall moderately obese 34-year-old male who appeared sedated and lethargic. He made eye contact and appeared to concentrate and attend to the interview. He had a flat facial expression. He had marked psychomotor slight retardation. Her speech was not spontaneous and had decreased rate and rhythm. His affect was depressed but slightly reactive. He did not express suicidal ideation or wishes. He did not express ideas reference, paranoid ideation or delusions. His thinking was concrete but his associations were coherent and logical. He expressed possi ble auditory hallucinations but did not appear to be responding to internal stimuli. Assessment: He is complaining of continued pain unrelieved by current medication and is unwilling to try a nonnarcotic medication. There is no evidence of alcohol withdrawal symptoms at this time. I suspect his poor sleep or sick related to his daytime sleeping. Plan: Continue inpatient treatment. Safety precautions. Continue CIWA with Ativan. Taper then discontinue Librium. Continue current dose of Seroquel and Cymbalta. Continue Narco, gabapentin and Tylenol for back pain. Continue Motrin 800 mg by mouth 4 times a day when necessary for back pain. Nicotine for smoking cessation. Encouraged her to therapeutic groups and activities as tolerated. Evaluate clinical status response to treatment daily basis.
[2020-08-28] MEDS: DULoxetine HCL 30 MG CAPSULE.DR PO SCH (21:03)
[2020-08-28] MEDS: QUEtiapine 200 MG TAB PO SCH (21:03)
[2020-08-29] MEDS: HYDROcodone/APAP 7.5-325MG 1 EACH TAB PO PRN ×2 (03:54→18:29)
[2020-08-29 06:16] VITALS: RESP 16; TEMP 96.8
[2020-08-29] MEDS: ASPIRIN 81 MG PO SCH (08:34)
[2020-08-29] MEDS: GABAPENTIN 300 MG CAP PO SCH ×3 (08:34→20:48)
[2020-08-29] MEDS: QUEtiapine 50 MG TAB PO SCH (08:34)
[2020-08-29] MEDS: PANTOPRAZOLE 40 MG TABLET PO SCH ×2 (08:34→17:55)
[2020-08-29] MEDS: DULoxetine HCL 60 MG CAPSULE.DR PO SCH ×2 (08:34→20:49)
[2020-08-29] MEDS: chlordiazePOXIDE 25 MG CAP PO SCH (08:34)
[2020-08-29 08:57] VITALS: BP 131/74; PULSE 104
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
[2020-08-29] MEDS: NICOTINE POLACRILEX 2 MG GUM BUCCAL PRN (19:13)
[2020-08-29] MEDS: QUEtiapine 100 MG TAB PO SCH (20:49)
[2020-08-29] MEDS ORDERED: ZIPRASIDONE 40 MG CAP PO STA (21:49)
[2020-08-30] MEDS: PANTOPRAZOLE 40 MG TABLET PO SCH ×2 (08:29→16:43)
[2020-08-30] MEDS: GABAPENTIN 300 MG CAP PO SCH (08:29)
[2020-08-30] MEDS: ASPIRIN 81 MG PO SCH (08:29)
[2020-08-30] MEDS: DULoxetine HCL 60 MG CAPSULE.DR PO SCH ×2 (08:30→20:52)
[2020-08-30] MEDS: HYDROcodone/APAP 7.5-325MG 1 EACH TAB PO PRN ×2 (08:30→19:43)
[2020-08-30] MEDS ORDERED: chlordiazePOXIDE 25 MG CAP PO SCH (09:00)
[2020-08-30] MEDS ORDERED: QUEtiapine 50 MG TAB PO SCH (09:00)
--- NOTE | 2020-08-30 10:06 | P.PN ---
Progress Note - Text Progress Note Date: 08/30/20 Interval History: Patient was seen resting in bed and was directable and agreeable to speak with the telegraphic typewriter operator. The patient reports mild improvement in mood today. He reports no suicidal or homicidal ideation, intention, and/or plan. He reports no auditory or visual hallucinations. He denies any paranoia or other delusions. He states that upon discharge she'll be going to the [facility] and then he will apply for a job with [employer]. He continues to endorse difficulty sleeping but admits to napping throughout the day. He has been adherent with his medications and denies any side effects. He states he is open to discontinuing his morning seroquel as it may contribute to his excessive daytime sleepiness. During previous hospitalizations he has displayed more range in affect and was more spontaneous and participated in groups. He continues to remain primarily isolati ve to himself. Mental Status Exam: General Appearance: Patient appears to be stated age is alert, directable, and cooperative. Obese body habitus. Shaved head. Large and built male. Behavior: Patient is calmly lying in bed without any agitated behavior. Intermittent eye contact. Speech: Patient's speech is fluent and nonpressured. Nonspontaneous. Mood/Affect: Mood is described as depressed. Affect is congruent and constricted. Slightly more range today. Suicidality/Homicidality: Patient denies having any suicidal or homicidal ideation intent or plan. Perceptions: Patient denies any visual hallucinations and denies any auditory hallucinations Though content/process: There is no evidence of any delusional thought content and thought process is linear and goal-directed. Memory and concentration: AOX3, grossly intact for the purposes of this session Judgment and insight: Poor Assessment Major depressive disorder, recurrent, severe Alcohol use disorder Nicotine dependence Plan: -Patient continues to meet criteria for inpatient psychiatric admission for symptom stabilization and safety. Patient has signed adult voluntary form and medication consent and was placed in patient's chart. -Medications: Continue Cymbalta 60 mg by mouth twice a day for maintenance of depression Increase gabapentin to 800 mg by mouth 3 times a day for off label use for anxiety as well as for neuropathy Discontinue morning seroquel. Continue Seroquel 300 mg at bedtime for mood augmentation/insomnia. Discontinue librium. -BMP ordered to monitor kidney function. -When necessary Ativan and Haldol for agitation/aggression. -NRT - nicotine patch -SW on board for discharge planning. Encouraged the patient to participate in milieu.
[2020-08-30 11:31] LABS: African American GFR (CKD) >90 (>60 ml/min/1.73 sqM); Anion Gap 4 mmol/L; Blood Urea Nitrogen 14 mg/dL (9-20); Calcium 9.5 mg/dL (8.4-10.2); Carbon Dioxide 28 mmol/L (22-30); Chloride 104 mmol/L (98-107); Glucose 130 mg/dL (74-99); Non-African American GFR(CKD) >90 (>60 ml/min/1.73 sqM); Potassium 4.5 mmol/L (3.5-5.1); Sodium 136 mmol/L (137-145)
[2020-08-30] MEDS: LORazepam 1 MG TAB PO PRN ×2 (13:53→18:07)
[2020-08-30] MEDS: NICOTINE POLACRILEX 2 MG GUM BUCCAL PRN ×2 (13:53→19:44)
[2020-08-30] MEDS: GABAPENTIN 400 MG CAP PO SCH ×2 (15:58→20:51)
[2020-08-30] MEDS: ACETAMINOPHEN TAB 325 MG TAB PO PRN (16:43)
[2020-08-30] MEDS: QUEtiapine 100 MG TAB PO SCH (20:51)
[2020-08-30] MEDS ORDERED: ZIPRASIDONE 20 MG CAP PO STA (21:41)
[2020-08-31] MEDS: GABAPENTIN 400 MG CAP PO SCH (08:27)
[2020-08-31] MEDS: ASPIRIN 81 MG PO SCH (08:28)
[2020-08-31] MEDS: HYDROcodone/APAP 7.5-325MG 1 EACH TAB PO PRN (08:28)
[2020-08-31] MEDS: DULoxetine HCL 60 MG CAPSULE.DR PO SCH (08:28)
[2020-08-31] MEDS: PANTOPRAZOLE 40 MG TABLET PO SCH (08:28)
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
[2020-08-31] MEDS: LORazepam 1 MG TAB PO PRN (11:28)
[2020-08-31] MEDS: ACETAMINOPHEN TAB 325 MG TAB PO PRN (11:28)
== END 2020-08-31 12:16 | disposition home or self-care (01) | DRG 885 ==
LOC: 3MHU 18:06
PROVIDERS: ADMIT Psychiatry & Neurology Psychiatry; ATTEND Psychiatry & Neurology Psychiatry
DX: F33.2 Major depressive disorder, recurrent severe without psychotic features (principal); R45.851 Suicidal ideations; F10.230 Alcohol dependence with withdrawal, uncomplicated; F10.24 Alcohol dependence with alcohol-induced mood disorder; Z68.41 Body mass index [BMI] 40.0-44.9, adult; R45.850 Homicidal ideations; F19.959 Other psychoactive substance use, unspecified with psychoactive substance-induced psychotic disorder, unspecified; G89.29 Other chronic pain; M54.5 Low back pain; F41.9 Anxiety disorder, unspecified; F17.200 Nicotine dependence, unspecified, uncomplicated; E66.9 Obesity, unspecified; G62.9 Polyneuropathy, unspecified; G47.00 Insomnia, unspecified; F12.90 Cannabis use, unspecified, uncomplicated; K29.20 Alcoholic gastritis without bleeding; Y90.8 Blood alcohol level of 240 mg/100 ml or more; Z79.82 Long term (current) use of aspirin; Z79.899 Other long term (current) drug therapy; Z56.0 Unemployment, unspecified; Z71.6 Tobacco abuse counseling; Z59.0 Homelessness; Z82.49 Family history of ischemic heart disease and other diseases of the circulatory system; Z82.3 Family history of stroke
CPT/HCPCS: 80048; 80061; 83036; 84443

== ENCOUNTER 2021-02-24 01:13 | Inpatient (IN) | payer MEDICAID, OTHER ==
[2021-02-24] MEDS ORDERED: ONDANSETRON 4 MG/2 ML VIAL IVP STA (01:29)
[2021-02-24] MEDS ORDERED: SODIUM CHLORIDE 0.9% 1,000 ML IV STA (01:29)
[2021-02-24] MEDS ORDERED: KETOROLAC 15 MG/ML 1 ML VIAL IVP STA (01:29)
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
[2021-02-24 02:28] LABS: Basophils # (A) 0.1 k/uL (0-0.2); Basophils % (A) 1 %; Eosinophils # (A) 0.1 k/uL (0-0.7); Eosinophils % (A) 1 %; HCT 53.5 % (39.0-53.0); Lymphocytes # (A) 1.9 k/uL (1.0-4.8); Lymphocytes % (A) 18 %; MCHC 35.6 g/dL (31.0-37.0); MCV 95.6 fL (80.0-100.0); Mean Platelet Volume 7.7; Monocytes # (A) 0.6 k/uL (0-1.0); Monocytes % (A) 6 %; Neutrophils # (A) 7.4 k/uL (1.3-7.7); Neutrophils % (A) 72 %; Platelet Count 264 k/uL (150-450); RDW 12.7 % (11.5-15.5); WBC 10.4 k/uL (3.8-10.6)
--- NOTE | 2021-02-24 02:29 | XR ---
EXAMINATION TYPE: XR chest 2V DATE OF EXAM: 02/24/2021 COMPARISON: 08/17/2018 HISTORY: Right upper quadrant pain TECHNIQUE: 2 views FINDINGS: Heart and mediastinum are normal. Lungs are clear. Diaphragm is normal. Bony thorax is inta ct. Pulmonary vascularity is normal. IMPRESSION: Normal chest. No change.
[2021-02-24 02:30] LABS: ALT 101 U/L (4-49); AST 86 U/L (17-59); African American GFR (CKD) >90 (>60 ml/min/1.73 sqM); Albumin 4.4 g/dL (3.5-5.0); Alkaline Phosphatase 151 U/L (38-126); Anion Gap 10 mmol/L; Blood Urea Nitrogen 6 mg/dL (9-20); Calcium 9.4 mg/dL (8.4-10.2); Carbon Dioxide 26 mmol/L (22-30); Chloride 103 mmol/L (98-107); Creatine Kinase 113 U/L (55-170); Glucose 100 mg/dL (74-99); Magnesium 2.2 mg/dL (1.6-2.3); Non-African American GFR(CKD) >90 (>60 ml/min/1.73 sqM); Phosphorus 4.1 mg/dL (2.5-4.5); Potassium 4.1 mmol/L (3.5-5.1); Sodium 139 mmol/L (137-145); Total Bilirubin 1.1 mg/dL (0.2-1.3); Total Protein 7.4 g/dL (6.3-8.2)
[2021-02-24 02:34] LABS: Partial Thromboplastin Time 23.9 sec (22.0-30.0); Prothrombin Time 10.9 sec (9.0-12.0)
[2021-02-24 02:44] LABS: Appearance,Urine Clear (Clear); Bilirubin,Urine Negative (Negative); Blood,Urine Negative (Negative); Color,Urine Light Yellow; Glucose,Urine (UA) Negative (Negative); Ketones,Urine Negative (Negative); Leukocyte Esterase,Urine Negative (Negative); Nitrite,Urine Negative (Negative); Protein,Urine Negative (Negative); Specific Gravity,Urine 1.002 (1.001-1.035); Urobilinogen,Urine <2.0 mg/dL (<2.0)
[2021-02-24 02:56] LABS: Amphetamine Screen,Urine Not Detected (NotDetected); Barbiturate Screen,Urine Not Detected (NotDetected); Benzodiazepines Screen,Urine Not Detected (NotDetected); Cocaine Screen,Urine Not Detected (NotDetected); Methadone Screen, Urine Not Detected (NotDetected); Opiate Screen,Urine Not Detected (NotDetected); Oxycodone Screen, Urine Not Detected (NotDetected); Phencyclidine Screen,Urine Not Detected (NotDetected); Tricyclic Antidepressant,Urine Not Detected (NotDetected); Urn Cannabinoid Scrn Not Detected (NotDetected)
[2021-02-24 03:59] LABS: Alcohol 145 mg/dL
[2021-02-24] MEDS ORDERED: ACETAMINOPHEN TAB 325 MG TAB PO STA (07:27)
[2021-02-24] MEDS ORDERED: MAGNESIUM HYDROXIDE 2,400 MG/10 ML CUP PO PRN (12:07)
[2021-02-24] MEDS ORDERED: LORazepam 2 MG/ML INJ IM PRN (12:16)
[2021-02-24] MEDS ORDERED: HALOPERIDOL LACTATE 5 MG/ML 1 ML VIAL IM PRN (12:17)
[2021-02-24] MEDS ORDERED: haloperidoL 5 MG TAB PO PRN (12:17)
[2021-02-24] MEDS: LORazepam 1 MG TAB PO PRN (17:30)
[2021-02-24] MEDS: ACETAMINOPHEN TAB 325 MG TAB PO PRN (17:30)
[2021-02-24] MEDS: MAG HYDROX/AL HYDROX/SIMETH 30 ML CUP PO PRN (17:33)
[2021-02-24] MEDS: QUEtiapine 100 MG TAB PO SCH (21:05)
[2021-02-24] MEDS: DULoxetine HCL 30 MG CAPSULE.DR PO SCH (21:05)
[2021-02-24] MEDS: GABAPENTIN 100 MG CAP PO SCH (21:05)
[2021-02-25] MEDS: LORazepam 1 MG TAB PO PRN ×3 (06:18→20:41)
[2021-02-25] MEDS: ACETAMINOPHEN TAB 325 MG TAB PO PRN ×3 (06:18→18:05)
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
[2021-02-25] MEDS: NICOTINE 14MG/24HR PATCH TRANSDERM SCH ×2 (08:18→08:22)
[2021-02-25] MEDS: QUEtiapine 50 MG TAB PO SCH (08:19)
[2021-02-25] MEDS: DULoxetine HCL 30 MG CAPSULE.DR PO SCH ×2 (08:19→20:40)
[2021-02-25] MEDS: GABAPENTIN 100 MG CAP PO SCH ×3 (08:19→21:23)
[2021-02-25] MEDS: MAG HYDROX/AL HYDROX/SIMETH 30 ML CUP PO PRN ×2 (08:21→18:06)
[2021-02-25 10:56] LABS: LDL Cholesterol,Calculated 125.8 mg/dL (0.0-131.0); VLDL Calculation 24.2 mg/dL (5.00-40.00)
[2021-02-25 13:50] LABS: Hemoglobin A1C 4.8 % (4.0-6.0)
[2021-02-25] MEDS: NICOTINE GUM (POLACRILEX) 2 MG GUM BUCCAL PRN ×2 (18:05→21:23)
[2021-02-25] MEDS: QUEtiapine 100 MG TAB PO SCH (20:40)
--- NOTE | 2021-02-26 00:36 | P.PN ---
Progress Note - Text Progress Note Date: 02/25/21 Chief complaint: "irritable mood and pain" Subjective: The patient has been seen today as follow-up, chart reviewed, case discussed with the treatment team. Patient slept about 6 hours last night. Patient has not been going to groups and other unit activities. Patient reports fair appetite. The patient is compliant with his medications and denies any adverse reactions. Patient reports continues to feel depressed with irritable mood. Denies SI today but reports feeling aggravated, and easily agitated because of generalized body pain. Admits for having AH but couldn't elaborate about the voices and still feeling paranoid so he isolates himself at his room. MENTAL STATUS EVALUATION: Appearance: Appears stated age, disheveled, above average body built, and no specific features. Gait/ posture: Steady gait, normal arm swinging, no abnormal movements, with relaxed posture. Attitude and Behavior: Not fully cooperative, not related to the interviewer in socially accepted manner, intermittent eye contact during course of interview. Motor Activity: Normal psychomotor activity. Speech: spontaneous, SLow rate, rhythm, and articulation. low volume. not pressured. Language: Articulating, naming objects and repeat phrases. Mood: depressed Affect: Restricted. Thought process: Poverty of thoughts. Association: Intact. Thought content: Reports paranoid ideation, denies suicidal thoughts, Denies homicidal thoughts, Denies intentions, or plans. Perception: Reports AH, Denies VH Alertness: No impairment. Concentration: impaired Orientation: Alert and fully oriented Insight regarding psychiatric condition: fair Judgment regarding daily activities and social situation: fair Impulse control: fair Assessment: Unspecified mood disorder. Rule out major depressive disorder, recurrent, severe with psychotic features. Alcohol use disorder. Nicotine use disorder. TREATMENT PLAN/RECOMMENDATIONS: Continue inpatient level of care for further monitoring and stabilization, and the patient still meets criteria for inpatient psych hospitalization. Continue treatment of depression, and suicidal ideation. Continue monitoring alcohol withdrawal symptoms, and give when necessary Ativan based on CIWA score. The patient will also be provided with individual therapy, group therapy, substance abuse counseling, gain insight, and coping skills. Consider medical consultation if any acute medical issues arise. Precautions: Continue 15 minutes check for safety. Medications: Continue Cymbalta 30 mg twice daily for depression and anxiety, Seroquel at dose 50 mg in the morning and increase night dose to 300 mg at bedtime for better mood stabilization and psychotic symptoms, and increase Neurontin 400 mg 3 times a day today for an anxiety and post acute withdrawal syndrome and pain. Continue nicotine replacement therapy. Discharge patient to OUTPATIENT services upon a stabilization
[2021-02-26] MEDS: DULoxetine HCL 30 MG CAPSULE.DR PO SCH ×2 (08:07→20:55)
[2021-02-26] MEDS: QUEtiapine 50 MG TAB PO SCH (08:07)
[2021-02-26] MEDS: GABAPENTIN 400 MG CAP PO SCH ×3 (08:07→20:54)
[2021-02-26] MEDS: LORazepam 1 MG TAB PO PRN (08:07)
[2021-02-26] MEDS: NICOTINE 14MG/24HR PATCH TRANSDERM SCH (08:07)
[2021-02-26] MEDS: ACETAMINOPHEN TAB 325 MG TAB PO PRN ×2 (12:41→21:26)
[2021-02-26] MEDS: MAG HYDROX/AL HYDROX/SIMETH 30 ML CUP PO PRN (12:41)
[2021-02-26] MEDS: NICOTINE GUM (POLACRILEX) 2 MG GUM BUCCAL PRN ×3 (12:41→20:56)
[2021-02-26] MEDS ORDERED: hydrOXYzine HCL 25 MG TAB PO PRN (14:55)
[2021-02-26] MEDS ORDERED: QUEtiapine 100 MG TAB PO SCH (21:00)
--- NOTE | 2021-02-26 23:49 | P.PN ---
Progress Note - Text Progress Note Date: 02/26/21 Subjective: Patient was seen today as a cross coverage for Dr. Mantilla. The patient was evaluated, chart reviewed, case discussed with the treatment team. Patient reports better sleep last night, and appetite was reported as " better ". Patient has not been going to groups and other unit activities. The patient is compliant with his medications and denies any adverse reactions. Patient reports continued to have racing thoughts, increased irritability, and sometimes agitated. He reports feeling depressed and hopeless but denies any suicidal ideation today. Continues to have high anxiety and was educated to take Vistaril as needed. Patient was encouraged to poor spacing groups and learn more about coping skills. Objective: Vitals has been reviewed. MENTAL STATUS EVALUATION: Appearance: Appears stated age, disheveled, above average body built, and no specific features. Gait/ posture: Steady gait, normal arm swinging, no abnormal movements, with relaxed posture. Attitude and Behavior: Not fully cooperative, not related to the interviewer in socially accepted manner, intermittent eye contact during course of interview. Motor Activity: Normal psychomotor activity. Speech: spontaneous, SLow rate, rhythm, and articulation. low volume. not pressu red. Language: Articulating, naming objects and repeat phrases. Mood: depressed Affect: Restricted. Thought process: Poverty of thoughts. Association: Intact. Thought content: Reports paranoid ideation, denies suicidal thoughts, Denies homicidal thoughts, Denies intentions, or plans. Perception: Reports AH, Denies VH Alertness: No impairment. Concentration: impaired Orientation: Alert and fully oriented Insight regarding psychiatric condition: fair Judgment regarding daily activities and social situation: fair Impulse control: fair Assessment: Unspecified mood disorder. Rule out major depressive disorder, recurrent, severe with psychotic features. Alcohol use disorder. Nicotine use disorder. TREATMENT PLAN/RECOMMENDATIONS: Continue inpatient level of care for further monitoring and stabilization, and the patient still meets criteria for inpatient psych hospitalization. Continue treatment of depression, and suicidal ideation. The patient will also be provided with individual therapy, group therapy, substance abuse counseling, gain insight, and coping skills. Consider medical consultation if any acute medical issues arise. Precautions: Continue 15 minutes check for safety. Continue monitoring alcohol withdrawal symptoms, and give when necessary Ativan based on CIWA score. Medications: Continue Cymbalta 30 mg twice daily for depression and anxiety, Seroquel at dose 50 mg in the morning and 300 mg at bedtime for better mood stabilization and psychotic symptoms, and Neurontin 400 mg 3 times a day today for an anxiety and post acute withdrawal syndrome and pain. Continue nicotine replacement therapy. Continue as needed psychiatric medications for agitation and anxiety. We'll start hydroxyzine 25 mg 3 times a day when necessary anxiety. Continue non-psychiatric medications as per medical team recommendations. Discharge patient to OUTPATIENT services upon a stabilization
[2021-02-27] MEDS: DULoxetine HCL 30 MG CAPSULE.DR PO SCH (08:47)
[2021-02-27] MEDS: QUEtiapine 50 MG TAB PO SCH (08:47)
[2021-02-27] MEDS: GABAPENTIN 400 MG CAP PO SCH ×3 (08:47→20:53)
[2021-02-27] MEDS: NICOTINE 14MG/24HR PATCH TRANSDERM SCH (08:47)
[2021-02-27] MEDS: LORazepam 1 MG TAB PO PRN ×2 (08:49→16:35)
[2021-02-27] MEDS: ACETAMINOPHEN TAB 325 MG TAB PO PRN ×3 (08:50→20:55)
[2021-02-27] MEDS ORDERED: DULoxetine HCL 30 MG CAPSULE.DR PO ONE (10:30)
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
[2021-02-27] MEDS: NICOTINE GUM (POLACRILEX) 2 MG GUM BUCCAL PRN ×2 (13:41→20:55)
[2021-02-27] MEDS ORDERED: QUEtiapine 400 MG TAB PO SCH (21:00)
[2021-02-28] MEDS: LORazepam 1 MG TAB PO PRN ×2 (04:28→13:52)
[2021-02-28] MEDS: IBUPROFEN 600 MG TAB PO PRN ×2 (04:28→15:34)
[2021-02-28] MEDS: NICOTINE GUM (POLACRILEX) 2 MG GUM BUCCAL PRN ×3 (04:32→20:36)
[2021-02-28] MEDS: GABAPENTIN 400 MG CAP PO SCH ×3 (08:24→20:32)
[2021-02-28] MEDS: DULoxetine HCL 60 MG CAPSULE.DR PO SCH (08:24)
--- NOTE | 2021-02-28 10:44 | P.PN ---
Progress Note - Text Progress Note Date: 02/28/21 Interval History: Patient was seen lying in his bed this morning and was directable and agreeable to speak with functional tester typewriters in the office. Patient claimed that he is still feeling somewhat depressed and anxious however feels that it is slowly getting better. He claims that the voices are still present however have been mildly improving and states that he hears them throughout the day however cannot make out what they say. He did ask several questions about his medications and claims that he did not sleep throughout the night. He requested to have his Seroquel increased once again to 500 mg. And that his withdrawal symptoms from alcohol and then gradually improving. He is denying any suicidal or homicidal ideations intent or plan. He claims that he is hearing mild auditory hallucinations which have been improving since his admission. Patient denies any visual hallucinations and denies any paranoia or delusions. Patient denies any side effects from the medications and has been compliant with meds. Mental Status Exam: General Appearance: Patient appears to be tall, stated age is alert, directable, and vague at times, attempts to be cooperative. Behavior: Patient is calmly seated without any agitated behavior. Vague Speech: Patient's speech is fluent and nonpressured. Mood/Affect: Mood is "a bit better", affect is congruent and constricted. Suicidality/Homicidality: Patient denies having any suicidal or homicidal ideation intent or plan. Perceptions: Patient denies any visual hallucinations and admits to some auditory hallucinations which have been improving. Though content/process: [place]. Vague at times. Not endorsing any paranoia or delusions. Memory and concentration: AOX3, grossly intact for the purposes of this session Judgment and insight: mildly improving. Assessment Major depressive disorder, severe, with psychotic features Alcohol use disorder, currently in withdrawal Nicotine dependence Plan: -Patient continues to meet criteria for inpatient psychiatric admission for symptom stabilization and safety. Patient has signed adult voluntary form and medication consent and was placed in patient's chart. -Medications: Increase Seroquel at nighttime to 500 mg daily at bedtime for mood adjunct/psychosis/insomnia. Increased Cymbalta to 60 mg daily + 30 mg daily at bedtime for mood/anxiety. Vistaril when necessary for anxiety. -CIWA protocol every 6 hours for withdrawals. Continue to monitor vital signs. Likely discontinue tomorrow. -When necessary Ativan and Haldol for agitation/aggression. -NRT - nicotine patch -SW on board for discharge planning. Encouraged the patient to participate in milieu. We will continue to work with patient until he psychiatrically improves and will be offering him rehab or other substance use treatments. Likely discharge in 1-2 days
[2021-02-28] MEDS ORDERED: DULoxetine HCL 30 MG CAPSULE.DR PO SCH (21:00)
[2021-02-28] MEDS ORDERED: QUEtiapine 100 MG TAB PO SCH (21:00)
[2021-03-01 06:53] VITALS: BP 138/88; PULSE 75; RESP 16; TEMP 98.4
[2021-03-01] MEDS: GABAPENTIN 400 MG CAP PO SCH (08:17)
[2021-03-01] MEDS: DULoxetine HCL 60 MG CAPSULE.DR PO SCH (08:17)
[2021-03-01] MEDS: LORazepam 1 MG TAB PO PRN (08:17)
[2021-03-01] MEDS: IBUPROFEN 600 MG TAB PO PRN (08:17)
[2021-03-01] MEDS ORDERED: busPIRone HCl 10 MG TAB PO SCH (10:30)
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
== END 2021-03-01 13:45 | disposition home or self-care (01) | DRG 897 ==
LOC: EC 01:13 → 3MHU 12:03
PROVIDERS: ADMIT Psychiatry & Neurology Psychiatry; ATTEND Psychiatry & Neurology Psychiatry
DX: F10.239 Alcohol dependence with withdrawal, unspecified (principal); F33.3 Major depressive disorder, recurrent, severe with psychotic symptoms; R45.851 Suicidal ideations; F41.0 Panic disorder [episodic paroxysmal anxiety]; F17.200 Nicotine dependence, unspecified, uncomplicated; G47.00 Insomnia, unspecified; Z79.899 Other long term (current) drug therapy; Z82.49 Family history of ischemic heart disease and other diseases of the circulatory system; Z91.19 Patient's noncompliance with other medical treatment and regimen; Z91.5 Personal history of self-harm; G89.29 Other chronic pain; M54.5 Low back pain; R74.01 Elevation of levels of liver transaminase levels; Z20.822 Contact with and (suspected) exposure to COVID-19; D75.1 Secondary polycythemia; F60.0 Paranoid personality disorder
CPT/HCPCS: 36415; 71046; 80053; 80061; 80306; 80320; 81003; 82075; 82550; 83036; 83605; 83735; 84100; 84484; 85025; 85610; 85730; 87635; 93005; 96361; 96374; 96375; 99285

== ENCOUNTER 2021-04-26 07:31 | Emergency (ER) | payer OTHER ==
[2021-04-26 07:37] VITALS: BP 132/87; PULSE 104; RESP 18; TEMP 97.3
[2021-04-26] MEDS ORDERED: MORPHINE SULFATE 4 MG/ML SYRINGE IM STA (07:55)
[2021-04-26] MEDS ORDERED: ACET/COD 300 MG/30 MG STARTER PACK 6 TAB BTL PO STA (07:59)
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
== END 2021-04-26 08:12 | disposition home or self-care (01) ==
LOC: EC 07:31
DX: M54.2 Cervicalgia (principal); G89.29 Other chronic pain; F41.9 Anxiety disorder, unspecified; F32.A Depression, unspecified; F17.200 Nicotine dependence, unspecified, uncomplicated; F12.90 Cannabis use, unspecified, uncomplicated; Z86.718 Personal history of other venous thrombosis and embolism
CPT/HCPCS: 99283; 96372; J2270

== ENCOUNTER 2021-07-27 18:29 | Observation (INO) | payer OTHER ==
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
[2021-07-27 19:54] LABS: Basophils # (A) 0.1 k/uL (0-0.2); Basophils % (A) 1 %; Eosinophils # (A) 0.1 k/uL (0-0.7); Eosinophils % (A) 1 %; HCT 45.6 % (39.0-53.0); HGB 15.8 gm/dL (13.0-17.5); Lymphocytes # (A) 3.7 k/uL (1.0-4.8); Lymphocytes % (A) 46 %; MCH 32.6 pg (25.0-35.0); MCHC 34.7 g/dL (31.0-37.0); MCV 93.9 fL (80.0-100.0); Monocytes # (A) 0.5 k/uL (0-1.0); Monocytes % (A) 6 %; Neutrophils # (A) 3.4 k/uL (1.3-7.7); Neutrophils % (A) 43 %; Platelet Count 270 k/uL (150-450); RBC 4.85 m/uL (4.30-5.90); RDW 11.9 % (11.5-15.5)
[2021-07-27 20:03] LABS: African American GFR (CKD) >90 (>60 ml/min/1.73 sqM); Anion Gap 13 mmol/L; Blood Urea Nitrogen 11 mg/dL (9-20); Calcium 8.8 mg/dL (8.4-10.2); Carbon Dioxide 25 mmol/L (22-30); Chloride 110 mmol/L (98-107); Glucose 123 mg/dL (74-99); Non-African American GFR(CKD) >90 (>60 ml/min/1.73 sqM); Potassium 4.1 mmol/L (3.5-5.1); Sodium 148 mmol/L (137-145)
[2021-07-27 20:07] LABS: Alcohol 297 mg/dL
[2021-07-27] MEDS ORDERED: NALOXONE 0.4 MG/ML 1 ML VIAL IV PRN (20:35)
[2021-07-27] MEDS ORDERED: IBUPROFEN 800 MG TAB PO STA (22:55)
[2021-07-28] MEDS ORDERED: LORazepam 2 MG/ML INJ IV PRN ×3 (00:17)
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
[2021-07-28] MEDS ORDERED: THIAMINE 100 MG/ML 2 ML VIAL IM ONE (00:30)
[2021-07-28] MEDS ORDERED: IBUPROFEN 800 MG TAB PO STA (05:24)
[2021-07-28] MEDS: HEPARIN SODIUM,PORCINE/PF 5,000 UNIT/0.5 ML SYRINGE SQ SCH ×2 (09:24→15:46)
[2021-07-28] MEDS: MULTIVITAMINS, THERA 1 EACH TAB PO SCH (09:59)
[2021-07-28 10:51] LABS: HCT 42.1 % (39.6-50.0); HGB 14.6 g/dL (13.0-17.0); MCH 31.9 pg (27.0-32.0); MCHC 34.7 g/dL (32.0-37.0); MCV 91.9 fL (80.0-97.0); Mean Platelet Volume 10.3 fL (9.5-12.2); NRBC Per 100 WBC 0 /100 WBCS (0.0-0.0); Platelet Count 270 X 10*3/uL (140-440); RBC 4.58 X 10*6/uL (4.40-5.60); RDW 12.3 % (11.5-14.5); WBC 6.69 X 10*3/uL (4.50-10.00)
[2021-07-28 11:03] LABS: African American GFR (CKD) 134.1 (60.0-200.0); Albumin 4.3 g/dL (3.8-4.9); Albumin/Globulin Ratio 1.95 (1.60-3.17); Anion Gap 13.1 mmol/L (10.00-18.00); Blood Urea Nitrogen 10.4 mg/dL (9.0-27.0); Calcium 8.5 mg/dL (8.7-10.3); Carbon Dioxide 23.9 mmol/L (20.0-27.5); Globulin 2.2 g/dL (1.6-3.3); Non-African American GFR(CKD) 115.7 (60.0-200.0); Potassium 4.1 mmol/L (3.5-5.5); Total Bilirubin 0.4 mg/dL (0.30-1.20); Total Protein 6.5 g/dL (6.2-8.2)
[2021-07-28] MEDS ORDERED: DULoxetine HCL 30 MG CAPSULE.DR PO STA (12:09)
[2021-07-28] MEDS ORDERED: busPIRone HCl 10 MG TAB PO STA (12:10)
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
--- NOTE | 2021-07-28 15:57 | P.PN ---
Subjective Progress Note Date: 07/28/21 Hospital course: Patient is a 35-year-old male with a significant history of previous psychiatric admissions, EtOH abuse, and major depressive disorder. He presented to the emergency department on 07/27/21 with a chief complaint of suicidal ideations. Patient also reported drinking a pint of whiskey and a pint of vodka daily and that this ongoing alcohol abuse causes him to feel suicidal. Suicide precautions were initiated. Patient's serum alcohol level was 297. Sodium elevated at 148 and chloride of 110. Patient was admitted under our services with consultation to psychiatry. Physical examination: Patient seen and fully evaluated at the bedside this morning. He was resting comfortably. Sitter at bedside maintaining suicide precautions and patient safety. Patient awaiting evaluation by psychiatry at this time. Upon assessment, patient confirms that he has been feeling increased depression and having suicidal ideations. When asked if patient had a plan, patient stated alcohol. Patient currently denied having any homicidal ideations, visual/tactile/auditory hallucinations. Patient denies having any headache, lightheadedness, dizziness, chest pain, palpitations, or shortness of breath. General: non toxic, no distress, appears at stated age Derm: warm, dry Head: atraumatic, normocephalic, symmetric Eyes: EOMI, no lid lag, anicteric sclera Mouth: no lip lesion, mucus membranes moist Cardiovascular: S1S2 reg, no murmur, positive posterior tibial pulse bilateral, Lungs: CTA bilateral, no rhonchi, no rales , no accessory muscle use Abdominal: soft, nontender to palpation, no guarding, no appreciable organomegaly Ext: no gross muscle atrophy, no edema, no contractures Neuro: CN II-XI grossly intact, no focal neuro deficits Psych: Alert, oriented, appropriate affect Assessment and plan of care: EtOH abuse, impending withdrawal -[facility] Protocol with symptom triggered medication management with benzodiazepines. -Continue with IV fluid hydration. -Thiamine 100 mg twice a day -Multivitamin daily -Folate 1 mg daily -Seizure, fall, aspiration, and elopement precautions in place. -Continued close monitoring of electrolytes and replace as needed. -Telemetry monitoring. Depression and suicidal ideation -Psychiatry consult -Maintain suicide precautions CODE STATUS: Full Code DVT prophylaxis: Heparin Discussed with: Patient, sitter at bedside, and RN Anticipated discharge date: Pending evaluation by psychiatry team Anticipated discharge place: Home versus inpatient mental health unit Objective - Vital Signs Vital signs: Vital Signs Temp 98.0 F 07/28/21 12:29 Pulse 104 H 07/28/21 12:29 Resp 20 07/28/21 12:29 BP 132/92 07/28/21 12:29 Pulse Ox 96 07/28/21 12:29 Intake & Output 07/27/21 07/28/21 07/28/21 18:59 06:59 18:59 Intake Total 100 Balance 100 Weight 120.202 kg 120.202 kg Intake: Oral 100 - Labs CBC & Chem 7: 07/28/21 05:20 07/28/21 05:20 Labs: Abnormal Lab Results - Last 24 Hours (Table) 07/27/21 07/28/21 Range/Units 19:42 05:20 Sodium 148 H (137-145) mmol/L Chloride 110 H (98-107) mmol/L Glucose 123 H (74-99) mg/dL Calcium 8.5 L (8.7-10.3) mg/dL Serum Alcohol 297 H* mg/dL
[2021-07-28] MEDS ORDERED: KETOROLAC 30 MG/ML 1 ML VIAL IVP STA (16:09)
[2021-07-28] MEDS: busPIRone HCl 10 MG TAB PO SCH ×2 (16:21→21:22)
[2021-07-28] MEDS: THIAMINE 100 MG TAB PO SCH (16:21)
[2021-07-28] MEDS: diazePAM 5 MG TAB PO SCH (18:15)
[2021-07-28 20:17] VITALS: RESP 16
[2021-07-28] MEDS ORDERED: QUEtiapine 100 MG TAB PO SCH (21:00)
[2021-07-28] MEDS: DULoxetine HCL 30 MG CAPSULE.DR PO SCH (21:21)
[2021-07-29] MEDS: diazePAM 5 MG TAB PO SCH ×2 (00:29→08:36)
[2021-07-29] MEDS: HEPARIN SODIUM,PORCINE/PF 5,000 UNIT/0.5 ML SYRINGE SQ SCH ×2 (00:31→08:36)
[2021-07-29 05:16] VITALS: BP 108/66; PULSE 88; TEMP 97.9
[2021-07-29] MEDS: THIAMINE 100 MG TAB PO SCH (08:36)
[2021-07-29] MEDS: busPIRone HCl 10 MG TAB PO SCH (08:36)
[2021-07-29] MEDS: DULoxetine HCL 30 MG CAPSULE.DR PO SCH (08:36)
[2021-07-29] MEDS: MULTIVITAMINS, THERA 1 EACH TAB PO SCH (08:36)
[2021-07-29] MEDS ORDERED: ACETAMINOPHEN TAB 325 MG TAB PO PRN (10:57)
--- NOTE | 2021-07-29 14:09 | P.DS ---
Providers Date of admission: 07/27/21 20:39 Expected date of discharge: 07/29/21 Attending physician: Eli Escalante MD Consults: 07/27/21 20:32 Consult Physician Routine Consulting Provider: Jeovanny Cain Consult Reason/Comments: psych eval Do you want consulting provider notified?: Yes Primary care physician: Stated None Hospital Course: EtOH abuse, impending withdrawal Depression and suicidal ideation Patient is a 35-year-old male with a significant history of previous psychiatric admissions, EtOH abuse, and major depressive disorder. He presented to the emergency department on 07/27/21 with a chief complaint of suicidal ideations. Patient also reported drinking a pint of whiskey and a pint of vodka daily and that this ongoing alcohol abuse causes him to feel suicidal. Suicide precautions were initiated. Patient's serum alcohol level was 297. Sodium elevated at 148 and chloride of 110. Patient was admitted under our services with consultation to psychiatry. Patient underwent evaluation by psychiatry who made some medication changes for his mood disorder and cleared him for discharge. Pt was discharged with counseling to go to outpatient rehab and/or seek out an AA group to adhere to cessation of ETOH. Also prescribed antabuse. Assessment: Gen: awake, alert HEENT: normocephalic, atraumatic, good hearing acuity, moist mucous membranes Resp: good air exchange, breathing comfortably with no accessory muscle use CVS: good distal perfusion x 4, GI: soft, NTTP, ND : no SPT, no CVAT, lin catheter not present MSK: no pitting edema, no clubbing Neuro: non-focal, moving all extremities Psych: cooperative, euthymic mood Patient Condition at Discharge: Good Plan - Discharge Summary Discharge Rx Participant: No New Discharge Prescriptions: New Thiamine [Vitamin B-1] 100 mg PO BID-W/MEALS #28 tab Disulfiram [Antabuse] 250 mg PO DAILY #30 tablet Multivitamins, Thera [Multivitamin (formulary)] 1 each PO DAILY tab Continue Ibuprofen [Motrin] 600 mg PO Q8H PRN 30 Days tab PRN Reason: Moderate To Severe Pain Gabapentin [Neurontin] 400 mg PO TID 14 Days #42 cap Nicotine Gum (Polacrilex) [Nicorette] 2 mg BUCCAL Q2HR PRN 28 Days PRN Reason: Nicotine Cravings Acetaminophen Tab [Tylenol] 650 mg PO Q4HR PRN tab PRN Reason: Pain/Discomfort Changed busPIRone HCl [Buspar] 10 mg PO TID 30 Days tab DULoxetine HCL [Cymbalta] 30 mg PO BID 30 Days QUEtiapine FUMARATE [SEROquel] 300 mg PO HS 30 Days tablet Discontinued DULoxetine HCL [Cymbalta] 60 mg PO DAILY 30 Days Discharge Medication List Acetaminophen Tab [Tylenol] 650 mg PO Q4HR PRN tab 03/01/21 [Rx] Gabapentin [Neurontin] 400 mg PO TID 14 Days #42 cap 03/01/21 [Rx] Ibuprofen [Motrin] 600 mg PO Q8H PRN 30 Days tab 03/01/21 [Rx] Nicotine Gum (Polacrilex) [Nicorette] 2 mg BUCCAL Q2HR PRN 28 Days 03/01/21 [Rx] DULoxetine HCL [Cymbalta] 30 mg PO BID 30 Days 07/29/21 [Rx] Disulfiram [Antabuse] 250 mg PO DAILY #30 tablet 07/29/21 [Rx] Multivitamins, Thera [Multivitamin (formulary)] 1 each PO DAILY tab 07/29/21 [Rx] QUEtiapine FUMARATE [SEROquel] 300 mg PO HS 30 Days tablet 07/29/21 [Rx] Thiamine [Vitamin B-1] 100 mg PO BID-W/MEALS #28 tab 07/29/21 [Rx] busPIRone HCl [Buspar] 10 mg PO TID 30 Days tab 07/29/21 [Rx] Follow up Appointment(s)/Referral(s): None,Stated [Primary Care Provider] - 1-2 days Patient Instructions/Handouts: Thiamine (By mouth), Disulfiram (By mouth), Abuse of Alcohol (DC) Activity/Diet/Wound Care/Special Instructions: Diet as Tolerated Activity limited until seen by DRKenny Discharge Disposition: HOME SELF-CARE
== END 2021-07-29 13:00 | disposition home or self-care (01) ==
LOC: EC 18:29 → 5NMEDONC 20:39
PROVIDERS: ADMIT Internal Medicine; ATTEND Internal Medicine
DX: F10.129 Alcohol abuse with intoxication, unspecified (principal); R45.851 Suicidal ideations; E87.0 Hyperosmolality and hypernatremia; F17.200 Nicotine dependence, unspecified, uncomplicated; Z20.822 Contact with and (suspected) exposure to COVID-19; M79.604 Pain in right leg; F32.A Depression, unspecified; F41.9 Anxiety disorder, unspecified; F32.9 Major depressive disorder, single episode, unspecified; G89.29 Other chronic pain; M54.50 Low back pain, unspecified; Y90.8 Blood alcohol level of 240 mg/100 ml or more; Z79.899 Other long term (current) drug therapy; Z71.41 Alcohol abuse counseling and surveillance of alcoholic; Z91.51 Personal history of suicidal behavior; Z82.3 Family history of stroke; Z82.49 Family history of ischemic heart disease and other diseases of the circulatory system; Z81.8 Family history of other mental and behavioral disorders
CPT/HCPCS: 99285; 96372; 96374; 82075; 36415; 80053; 80048; 85025; 85027; 83036; 87635; G0378 ×3; G0480; J1885; J1644; 80320

== ENCOUNTER 2022-02-03 05:30 | Inpatient (IN) | payer MEDICAID, OTHER ==
[2022-02-03] MEDS ORDERED: ACETAMINOPHEN TAB 500 MG TAB PO STA (06:10)
[2022-02-03] MEDS ORDERED: IBUPROFEN 800 MG TAB PO STA (06:10)
[2022-02-03] MEDS ORDERED: DEXAMETHASONE SOD PHOSPHATE 10 MG/ML 1 ML VIAL IM STA (06:22)
--- NOTE | 2022-02-03 06:26 | ED ---
Psych HPI - General Chief Complaint: Psychiatric Symptoms Stated Complaint: Mental Health,Back Pain Time Seen by Provider: 02/03/22 06:00 Source: patient, RN notes reviewed Mode of arrival: ambulatory - History of Present Illness Initial Comments: This is a 36-year-old male who presents to the emergency department for psychiatric evaluation. When he originally came in to the emergency department, he noted suicidal ideations without a plan. When I went to speak with him, he states that he no longer feels suicidal but acknowledges that he needs to be evaluated by EPS. Also states that he has pain all over his body, in his groin, his lower back, and all of his joints. Describes the pain as sharp. This has been a chronic and ongoing issue for him. Currently takes Neurontin for the pain. He is not on any psychiatric medication. Denies any fevers, chills, sore throat, cough, dyspnea, chest pain, palpitations, abdominal pain, nausea, vomiting, diarrhea, or headaches. MD Complaint: suicidal ideation Associated Psychiatric Symptoms: depression History of same: Yes Worsens With: alcohol Context: recent alcohol abuse Associated Symptoms: denies other symptoms Treatments Prior to Arrival: none - Related Data Previous Rx's Medication Instructions Recorded Acetaminophen Tab [Tylenol] 650 mg PO Q4HR PRN tab 03/01/21 Nicotine Gum (Polacrilex) 2 mg BUCCAL Q2HR PRN 28 Days 03/01/21 [Nicorette] Disulfiram [Antabuse] 250 mg PO DAILY #30 tablet 07/29/21 Multivitamins, Thera [Multivitamin 1 each PO DAILY tab 07/29/21 (formulary)] Thiamine [Vitamin B-1] 100 mg PO BID-W/MEALS #28 tab 07/29/21 DULoxetine HCL [Cymbalta] 30 mg PO BID 30 Days #60 cap 07/31/21 Gabapentin [Neurontin] 400 mg PO TID 14 Days #42 cap 07/31/21 Ibuprofen [Motrin] 600 mg PO Q8H PRN 30 Days #30 tab 07/31/21 QUEtiapine FUMARATE [SEROquel] 300 mg PO HS 30 Days #45 tablet 07/31/21 busPIRone HCl [Buspar] 10 mg PO TID 30 Days #90 tab 07/31/21 Allergies Allergy/AdvReac Type Severity Reaction Status Date / Time No Known Allergies Allergy Verified 02/03/22 05:36 Review of Systems ROS Statement: Those systems with pertinent positive or pertinent negative responses have been documented in the HPI. ROS Other: All systems not noted in ROS Statement are negative. Past Medical History Past Medical History: Deep Vein Thrombosis (DVT) Additional Past Medical History / Comment(s): ETOH abuse, past withdrawls with tremors/nausea/seizure, chronic low back pain, recent R knee/leg pain, DVT R leg. History of Any Multi-Drug Resistant Organisms: None Reported Past Surgical History: Cholecystectomy, Orthopedic Surgery Additional Past Surgical History / Comment(s): right knee tendon surgery Past Anesthesia/Blood Transfusion Reactions: Motion Sickness Additional Past Anesthesia/Blood Transfusion Reaction / Comment(s): Clausterphobia. Past Psychological History: Anxiety, Depression Smoking Status: Current every day smoker Past Alcohol Use History: Occasional Past Drug Use History: None Reported - Past Family History Father History Unknown: Yes Family Medical History: CVA/TIA Additional Family Medical History / Comment(s): Unable to obtain family history secondary altered mentation Mother Family Medical History: Congestive Heart Failure (CHF) General Exam Limitations: no limitations General appearance: alert, in no apparent distress Head exam: Present: atraumatic, normocephalic, normal inspection Respiratory exam: Present: normal lung sounds bilaterally. Absent: respiratory distress, wheezes, rales, rhonchi, stridor Cardiovascular Exam: Present: regular rate, normal rhythm, normal heart sounds. Absent: systolic murmur, diastolic murmur, rubs, gallop, clicks Back exam: Present: normal inspection, full ROM. Absent: tenderness Neurological exam: Present: alert, oriented X3, CN II-XII intact Psychiatric exam: Present: flat affect Skin exam: Present: warm, dry, intact, normal color. Absent: rash Course Vital Signs 02/03/22 05:31 Temperature 98.1 F Pulse Rate 102 H Respiratory 22 Rate Blood Pressure 132/84 O2 Sat by Pulse 98 Oximetry Medical Decision Making - Medical Decision Making This is a 36-year-old male who presents to the emergency department for psychiatric evaluation and diffuse body pain. Patient is mildly intoxicated on initial evaluation and will be sober at 0650. Patient given ibuprofen and Tylenol for his pain, however he was not happy with this combination and requests morphine or Dilaudid. I discussed that this is not the first line treatment we will provide for his symptoms, and because he is here for psychiatric evaluation and is currently under the influence of alcohol, we will not be proceeding with either of those at this time. Patient was evaluated by EPS and noted to be an active threat to himself. He stated that he chronically drinks and is not happy with his life. He becomes impulsive, depressed, and suicidal whenever he drinks. He is requesting help, and states that if he goes home he will probably kill himself. Given these remarks, patient will be admitted for inpatient psychiatric care. This case was discussed in detail with the attending ED physician. Presentation, findings, and treatment plan discussed in detail as well. - Lab Data Lab Results 02/03/22 Range/Units 06:51 Urine Opiates Screen Not Detected (NotDetected) Ur Oxycodone Screen Not Detected (NotDetected) Urine Methadone Screen Not Detected (NotDetected) Ur Propoxyphene Screen Not Detected (NotDetected) Ur Barbiturates Screen Not Detected (NotDetected) U Tricyclic Antidepress Not Detected (NotDetected) Ur Phencyclidine Scrn Not Detected (NotDetected) Ur Amphetamines Screen Not Detected (NotDetected) U Methamphetamines Scrn Not Detected (NotDetected) U Benzodiazepines Scrn Not Detected (NotDetected) Urine Cocaine Screen Not Detected (NotDetected) U Marijuana (THC) Screen Detected H (NotDetected) Disposition Clinical Impression: Suicidal ideations Disposition: ADMITTED IP TO THIS HOSP Referrals: None,Stated [Primary Care Provider] - 1-2 days
[2022-02-03 07:29] LABS: Amphetamine Screen,Urine Not Detected (NotDetected); Barbiturate Screen,Urine Not Detected (NotDetected); Benzodiazepines Screen,Urine Not Detected (NotDetected); Cocaine Screen,Urine Not Detected (NotDetected); Methadone Screen, Urine Not Detected (NotDetected); Opiate Screen,Urine Not Detected (NotDetected); Oxycodone Screen, Urine Not Detected (NotDetected); Phencyclidine Screen,Urine Not Detected (NotDetected); Tricyclic Antidepressant,Urine Not Detected (NotDetected); Urn Cannabinoid Scrn Detected (NotDetected)
[2022-02-03 12:53] LABS: Appearance,Urine Clear (Clear); Bilirubin,Urine Negative (Negative); Blood,Urine Negative (Negative); Color,Urine Yellow; Glucose,Urine (UA) Negative (Negative); Ketones,Urine Negative (Negative); Leukocyte Esterase,Urine Negative (Negative); Nitrite,Urine Negative (Negative); Protein,Urine Trace (Negative); Specific Gravity,Urine 1.016 (1.001-1.035)
[2022-02-03 13:13] LABS: Basophils # (A) 0.1 k/uL (0-0.2); Basophils % (A) 1 %; Eosinophils % (A) 0 %; HCT 46.1 % (39.0-53.0); HGB 15.8 gm/dL (13.0-17.5); Lymphocytes # (A) 0.4 k/uL (1.0-4.8); Lymphocytes % (A) 8 %; MCH 31.5 pg (25.0-35.0); MCHC 34.3 g/dL (31.0-37.0); MCV 91.9 fL (80.0-100.0); Mean Platelet Volume 8.9; Monocytes # (A) 0.1 k/uL (0-1.0); Monocytes % (A) 3 %; Neutrophils # (A) 4.6 k/uL (1.3-7.7); Neutrophils % (A) 87 %; Platelet Count 153 k/uL (150-450); RBC 5.01 m/uL (4.30-5.90); WBC 5.3 k/uL (3.8-10.6)
[2022-02-03 13:29] LABS: ALT 128 U/L (4-49); AST 121 U/L (17-59); African American GFR (CKD) >90 (>60 ml/min/1.73 sqM); Albumin 4.3 g/dL (3.5-5.0); Alkaline Phosphatase 92 U/L (38-126); Anion Gap 10 mmol/L; Blood Urea Nitrogen 11 mg/dL (9-20); Calcium 9.1 mg/dL (8.4-10.2); Carbon Dioxide 25 mmol/L (22-30); Chloride 103 mmol/L (98-107); Glucose 168 mg/dL (74-99); Non-African American GFR(CKD) >90 (>60 ml/min/1.73 sqM); Potassium 3.5 mmol/L (3.5-5.1); Sodium 138 mmol/L (137-145); Total Bilirubin 0.6 mg/dL (0.2-1.3); Total Protein 6.8 g/dL (6.3-8.2)
[2022-02-03] MEDS ORDERED: MAG HYDROX/AL HYDROX/SIMETH 30 ML CUP PO PRN (14:28)
[2022-02-03] MEDS ORDERED: MAGNESIUM HYDROXIDE 2,400 MG/10 ML CUP PO PRN (14:28)
[2022-02-03] MEDS ORDERED: LORazepam 2 MG/ML INJ IM PRN (14:37)
[2022-02-03] MEDS ORDERED: haloperidoL 5 MG TAB PO PRN (14:42)
[2022-02-03] MEDS ORDERED: HALOPERIDOL LACTATE 5 MG/ML 1 ML VIAL IM PRN (14:45)
[2022-02-03] MEDS: chlordiazePOXIDE 25 MG CAP PO SCH ×2 (15:28→21:17)
[2022-02-03] MEDS: diazePAM 5 MG TAB PO SCH ×2 (15:28→21:17)
--- NOTE | 2022-02-03 16:53 | P.MDCNMH ---
History of Present Illness H&P Date: 02/03/22 Chief Complaint: stress 35-year-old male with a PMH of alcohol abuse and major depressive disorder who presents to the emergency room after alcohol intoxication with suicidal ideation. The patient reports that he drinks a pint of whiskey and vodka daily. Has been having a lot of stress and feeling suicidal. He complains from chronic back pain radiating to his legs, ongoing for years. Denied any additional complaints. No chest discomfort, shortness of breath, fever, chills, cough, nausea, vomiting, abdominal pain, diarrhea. In the emergency room his exam and labs were unremarkable. Review of Systems Complete review of system performed, pertinent positives per HPI, otherwise negative Past Medical History Past Medical History: Deep Vein Thrombosis (DVT) Additional Past Medical History / Comment(s): ETOH abuse, past withdrawls with tremors/nausea/seizure, chronic low back pain, recent R knee/leg pain, DVT R leg. History of Any Multi-Drug Resistant Organisms: None Reported Past Surgical History: Cholecystectomy, Orthopedic Surgery Additional Past Surgical History / Comment(s): right knee tendon surgery Past Anesthesia/Blood Transfusion Reactions: Motion Sickness Additional Past Anesthesia/Blood Transfusion Reaction / Comment(s): Vignesh fuentes. Smoking Status: Current every day smoker - Past Family History Father History Unknown: Yes Family Medical History: CVA/TIA Additional Family Medical History / Comment(s): Unable to obtain family history secondary altered mentation Mother Family Medical History: Congestive Heart Failure (CHF) Medications and Allergies Home Medications Medication Instructions Recorded Confirmed Type DULoxetine HCL [Cymbalta] 60 mg PO DIRECTED 02/03/22 02/03/22 History busPIRone HCL 15 mg PO DIRECTED 02/03/22 02/03/22 History Allergies Allergy/AdvReac Type Severity Reaction Status Date / Time No Known Allergies Allergy Verified 02/03/22 15:53 Physical Exam Vitals: Vital Signs Temp Pulse Pulse Resp BP BP Pulse Ox 02/03/22 16:18 98.2 F 68 17 02/03/22 15:27 106 H 141/94 02/03/22 05:31 98.1 F 102 H 22 132/84 98 Intake and Output 02/03/22 02/03/22 02/03/22 06:59 14:59 22:59 Other: Weight 113.398 kg 113.398 kg Constitutional: No acute distress, conversant, pleasant Eyes:Anicteric sclerae, moist conjunctiva, no lid-lag, PERRLA, ENMT: Oropharynx clear, no erythema, exudates Neck: Supple, FROM, no masses, or JVD, No carotid bruits, No thyromegaly Lungs: Clear to auscultation, Clear to percussion, Normal respiratory effort, no accessory muscle use Cardiovascular: Heart regular in rate and rhythm, No murmurs, gallops, or rubs, No peripheral edema Abdominal: Soft, Nontender, no guarding, rebound or rigidity, Normoactive bowel sounds, No hepatomegaly, No splenomegaly, No palpable mass Skin: Normal temperature, tone, texture, turgor, no induration, No subcutaneous nodules, No rash, lesions, No ulcers Extremities: No digital cyanosis, No clubbing, Pedal pulses intact and symmetrical, Radial pulses intact and symmetrical, No calf tenderness Psychiatric: Alert and oriented to person, place and time, appropriate affect, intact judgement Neuro: Muscles Strength 5/5 in all 4 extremities, Sensation to light touch grossly present throughout, Cranial nerves II-XII grossly intact, no focal sensory deficits Cranial Nerve Examination - Cranial Nerves Cranial Nerve II- Optic: Intact Cranial Nerve III- Oculomotor: Intact Cranial Nerve IV- Trochlear: Intact Cranial Nerve V- Trigeminal: Intact Cranial Nerve - Abducens: Intact Cranial Nerve VII- Facial: Intact Cranial Nerve VIII- Auditory: Intact Cranial Nerve IX- Glossopharyngeal: Intact Cranial Nerve X- Vagus: Intact Cranial Nerve XI- Accessory: Intact Cranial Nerve XII- Hypoglossal: Intact Results CBC & Chem 7: 02/03/22 12:45 02/03/22 12:45 Labs: Abnormal Lab Results - Last 24 Hours (Table) 02/03/22 02/03/22 02/03/22 Range/Units 06:51 06:51 12:45 Lymphocytes # (1.0-4.8) k/uL Glucose 168 H (74-99) mg/dL AST 121 H (17-59) U/L ALT 128 H (4-49) U/L Urine Protein Trace H (Negative) U Marijuana (THC) Screen Detected H (NotDetected) 02/03/22 Range/Units 12:45 Lymphocytes # 0.4 L (1.0-4.8) k/uL Glucose (74-99) mg/dL AST (17-59) U/L ALT (4-49) U/L Urine Protein (Negative) U Marijuana (THC) Screen (NotDetected) Assessment and Plan Plan: Acute alcohol intoxication Suicidal ideation Psychiatric management Chronic back pain Stable Marijuana abuse Counseled to quit Health maintenance CBC, CMP, TSH, A1c, lipid profile done and reviewed. Thank you for the consultation, please call with any questions
[2022-02-03] MEDS: LORazepam 1 MG TAB PO PRN (22:43)
[2022-02-04] MEDS: diazePAM 5 MG TAB PO SCH ×3 (08:34→21:34)
[2022-02-04] MEDS: chlordiazePOXIDE 25 MG CAP PO SCH ×3 (08:35→21:34)
[2022-02-04] MEDS ORDERED: diazePAM 5 MG TAB PO PRN (08:49)
[2022-02-04] MEDS ORDERED: NICOTINE 21MG/24HR PATCH TRANSDERM SCH (09:00)
[2022-02-04] MEDS ORDERED: NICOTINE 14MG/24HR PATCH TRANSDERM SCH (09:00)
--- NOTE | 2022-02-04 09:18 | P.HP ---
Psychiatric H&P - . H&P Date: 02/04/22 History & Physical: IDENTIFYING DATA: He is a 36-year-old single male admitted to the psychiatric unit voluntarily with complaints of depression and suicidal ideation. HISTORY OF PRESENT ILLNESS: I reviewed the medical record and interviewed the patient. He is known to this psychiatric unit from his multiple past admissions. He was last discharged from unit in February 2021 with the diagnoses of major depressive disorder, alcohol use disorder and nicotine dependence. He was evasive about the reason for this admission and he specifically avoided mentioning suicide. When I asked him if he had had suicidal ideation prior to admission he replied that he replied that he "might have." He perseverated on needing a rest. He also perseverates about a belief that other people either want to know or are talking about his private life. I was unable to determine from interview with a he was experiencing psychotic symptoms such as hallucinations, ideas reference or paranoia. He acknowledged that he was drinking alcohol but was unspecific about the amount and frequency. He talked about gradually reducing the amount that he has been drinking. During the inquiry about his alcohol use he mentioned that he was unable to drink because he had been incarcerated for "a year or maybe 6 months." When I asked about the incarceration he replied that he had a "scuffle" with the police. Apparently he was released from residential 2 weeks ago. After she left residential he "went to [place]" for a while and then came back to [facility] [address]. He currently has no stable housing, no income and no identification. His breath alcohol level on presentation to the ED was 0.094. He complained that he was "overmedicated" while he was incarcerated and has "wean myself" off Seroquel and BuSpar. PAST PSYCHIATRIC HISTORY: He has a history of an alcohol use disorder and depression disorder. He has had 11 admissions to this unit since 2017. In addition, he has had multiple presentations to the ED related to alcohol use or mental health complaints. He is currently not active with community mental health. PAST MEDICAL HISTORY: See medical consult to the mental health unit ALLERGIES: Known drug ALLERGIES SUBSTANCE USE HISTORY: He has long history of alcohol use and alcohol use problems. He was vague about his amount and frequency. Past records indicate that he consumes up to a fifth of alcohol daily and addition to using marijuana. According to the record, he has never participated in a residential substance abuse treatment program. FAMILY PSYCHIATRIC/SUBSTANCE USE HISTORY: He was ambiguous about his family history but denied a family history of suicides or suicide attempts. LEGAL HISTORY: He has had multiple legal problems including assault, resisting arrest, domestic violence and drunk and disorderly SOCIAL HISTORY: He is single and has one 19-year-old son whom he does not have custody. He is unemployed and has no income. He did not serve in the . He left school in 11th grade but later earned a GED. MENTAL STATUS EXAM: He presented as a tall well-developed and well-nourished male who made eye contact and appeared to attend to the interview. Although noted. He had no distinguishing features. He had no prominent physical abnormalities. He had a blunted facial expression. He was alert and oriented to person, place and time. He showed no abnormality of psychomotor activity. His gait was slow but steady. His speech was spontaneous with normal rate and volume. His affect was stable and appropriate. He did not express suicidal ideation, wishes or homicidal ideation. Expresses feelings of helplessness regarding his financial problems. He perseverated about other people knowing his business..Paranoid but did not express clear paranoid ideation. I was uncertain whether his concerns about others was a delusional belief or an idea reference. His thinking was concrete but his associations were coherent and logical. He denied hallucinations and did not appear to be responding to internal stimuli. Global impression of intellect is below average. He has limited awareness of his illness but understands the need for some treatment. STRENGTHS: Relatively good physical health, past engagement with mental health services WEAKNESSES: Lack of housing, lack of income, recurrent legal problems, chronic alcohol use, poor problem-solving skills IMPRESSION: Is 36-year-old single male who has a history of an alcohol use disorder and depression. [facility] with complaints of increasing depression and suicidal ideation. He has a chaotic lifestyle where he has uncontrolled alcohol use has resulted in personal, financial and legal problems. As result he is unable to maintain gainful employment and provide for safety stable housing. He should be treated inpatient setting with a combination of multimodal therapy and psychopharmacology. PRINCIPLE DIAGNOSIS:Suicidal ideation, depression secondary to alcohol use disorder, rule out major depressive disorder, alcohol use disorder severe, cannabis use disorder unspecified, lack of income, lack of housing, recurrent legal problems RECOMMENDATION:Admit to the psychiatric unit. Safety precautions. Consult medicine for initial physical exam and medical history. Librium and/or Valium when necessary for alcohol withdrawal. Ativan and Haldol for agitation or acute psychosis. Restart Seroquel 100 mg at bedtime and titrated according to clinical tolerance. Social work to coordinate discharge and aftercare services. Encourage participation in therapeutic groups and activities. Evaluate clinical status response to treatment daily basis.] Allergies Allergy/AdvReac Type Severity Reaction Status Date / Time No Known Allergies Allergy Verified 02/03/22 15:53 Vital Signs Temp 98.7 F 02/04/22 06:45 Pulse 88 02/04/22 06:45 Resp 18 02/04/22 06:45 BP 135/89 02/04/22 06:45 Pulse Ox 98 02/04/22 06:45 FiO2 Intake & Output 02/03/22 02/04/22 02/04/22 18:59 06:59 18:59 Weight 113.398 kg Laboratory Last Values WBC 5.3 k/uL (3.8-10.6) 02/03/22 12:45 RBC 5.01 m/uL (4.30-5.90) 02/03/22 12:45 Hgb 15.8 gm/dL (13.0-17.5) 02/03/22 12:45 Hct 46.1 % (39.0-53.0) 02/03/22 12:45 MCV 91.9 fL (80.0-100.0) 02/03/22 12:45 MCH 31.5 pg (25.0-35.0) 02/03/22 12:45 MCHC 34.3 g/dL (31.0-37.0) 02/03/22 12:45 RDW 13.0 % (11.5-15.5) 02/03/22 12:45 Plt Count 153 k/uL (150-450) 02/03/22 12:45 MPV 8.9 02/03/22 12:45 Neutrophils % 87 % 02/03/22 12:45 Lymphocytes % 8 % 02/03/22 12:45 Monocytes % 3 % 02/03/22 12:45 Eosinophils % 0 % 02/03/22 12:45 Basophils % 1 % 02/03/22 12:45 Neutrophils # 4.6 k/uL (1.3-7.7) 02/03/22 12:45 Lymphocytes # 0.4 k/uL (1.0-4.8) L 02/03/22 12:45 Monocytes # 0.1 k/uL (0-1.0) 02/03/22 12:45 Eosinophils # 0.0 k/uL (0-0.7) 02/03/22 12:45 Basophils # 0.1 k/uL (0-0.2) 02/03/22 12:45 Sodium 138 mmol/L (137-145) 02/03/22 12:45 Potassium 3.5 mmol/L (3.5-5.1) 02/03/22 12:45 Chloride 103 mmol/L (98-107) 02/03/22 12:45 Carbon Dioxide 25 mmol/L (22-30) 02/03/22 12:45 Anion Gap 10 mmol/L 02/03/22 12:45 BUN 11 mg/dL (9-20) 02/03/22 12:45 Creatinine 0.74 mg/dL (0.66-1.25) 02/03/22 12:45 Est GFR (CKD-EPI)AfAm >90 (>60 ml/min/1.73 sqM) 02/03/22 12:45 Est GFR (CKD-EPI)NonAf >90 (>60 ml/min/1.73 sqM) 02/03/22 12:45 Glucose 168 mg/dL (74-99) H 02/03/22 12:45 Calcium 9.1 mg/dL (8.4-10.2) 02/03/22 12:45 Total Bilirubin 0.6 mg/dL (0.2-1.3) 02/03/22 12:45 AST 121 U/L (17-59) H 02/03/22 12:45 ALT 128 U/L (4-49) H 02/03/22 12:45 Alkaline Phosphatase 92 U/L (38-126) 02/03/22 12:45 Total Protein 6.8 g/dL (6.3-8.2) 02/03/22 12:45 Albumin 4.3 g/dL (3.5-5.0) 02/03/22 12:45 TSH 0.572 mIU/L (0.465-4.680) 02/04/22 06:35 Urine Color Yellow 02/03/22 06:51 Urine Appearance Clear (Clear) 02/03/22 06:51 Urine pH 6.0 (5.0-8.0) 02/03/22 06:51 Ur Specific Flora 1.016 (1.001-1.035) 02/03/22 06:51 Urine Protein Trace (Negative) H 02/03/22 06:51 Urine Glucose (UA) Negative (Negative) 02/03/22 06:51 Urine Ketones Negative (Negative) 02/03/22 06:51 Urine Blood Negative (Negative) 02/03/22 06:51 Urine Nitrite Negative (Negative) 02/03/22 06:51 Urine Bilirubin Negative (Negative) 02/03/22 06:51 Urine Urobilinogen 2.0 mg/dL (<2.0) 02/03/22 06:51 Ur Leukocyte Esterase Negative (Negative) 02/03/22 06:51 Urine Opiates Screen Not Detected (NotDetected) 02/03/22 06:51 Ur Oxycodone Screen Not Detected (NotDetected) 02/03/22 06:51 Urine Methadone Screen Not Detected (NotDetected) 02/03/22 06:51 Ur Propoxyphene Screen Not Detected (NotDetected) 02/03/22 06:51 Ur Barbiturates Screen Not Detected (NotDetected) 02/03/22 06:51 U Tricyclic Antidepress Not Detected (NotDetected) 02/03/22 06:51 Ur Phencyclidine Scrn Not Detected (NotDetected) 02/03/22 06:51 Ur Amphetamines Screen Not Detected (NotDetected) 02/03/22 06:51 U Methamphetamines Scrn Not Detected (NotDetected) 02/03/22 06:51 U Benzodiazepines Scrn Not Detected (NotDetected) 02/03/22 06:51 Urine Cocaine Screen Not Detected (NotDetected) 02/03/22 06:51 U Marijuana (THC) Screen Detected (NotDetected) H 02/03/22 06:51 Coronavirus (PCR) Not Detected (Not Detectd) 02/03/22 12:45 02/04/22 08:56
[2022-02-04 12:58] LABS: LDL Cholesterol,Calculated 61.6 mg/dL (0.0-131.0); VLDL Calculation 19.88 mg/dL (5.00-40.00)
[2022-02-04] MEDS: NICOTINE GUM (POLACRILEX) 2 MG GUM BUCCAL PRN ×2 (14:04→17:08)
[2022-02-04] MEDS: LORazepam 1 MG TAB PO PRN (14:04)
[2022-02-04] MEDS: QUEtiapine 100 MG TAB PO SCH (21:34)
[2022-02-05] MEDS: diazePAM 5 MG TAB PO SCH (08:17)
[2022-02-05] MEDS: chlordiazePOXIDE 25 MG CAP PO SCH ×3 (08:18→20:19)
--- NOTE | 2022-02-05 11:45 | P.PN ---
Progress Note - Text Progress Note Date: 02/05/22 Interval History: Patient was seen lying in his bed this morning and was directable and agreeable to speak with automobile and property underwriter in the office. Patient appears to be somewhat irritable with automobile and property underwriter and fairly vague and evasive when describing why he came to the hospital. He states that he is not being treated well and feels depressed and was feeling suicidal at home. He states that he is still having some suicidal thoughts at this time. He claims that he was drinking however has been minimizing his alcohol use. He states that his last drink was . He claimed that he still feeling depressed and anxious at this time. We attempted to speak about medications however patient again was fairly argumentative about medications and wanted a "medication to make me more awake". We also spoke about his Librium and Valium and will be discontinuing the Valium today and continuing on with CIWA protocol. He states that his sleep has been fair. At this time patient denies any homical ideations, intent or plan. Patient denies any auditory, visual hallucinations and denies any paranoia or delusions. Patient denies any side effects from the medications and has been compliant with meds. Mental Status Exam: General Appearance: Patient appears to be overweight, poor hygiene and grooming, stated age is lethargic, directable, yet argumentative. Behavior: Patient is calmly seated without any agitated behavior. He is irritable today. Argumentative. Speech: Patient's speech is fluent and nonpressured. Monotone. Evasive. Mood/Affect: Mood is irritable and depressed, affect is congruent and constricted. Suicidality/Homicidality: Patient denies having any suicidal or homicidal ideation intent or plan. Perceptions: Patient denies any visual hallucinations and denies any auditory hallucinations Though content/process: There is no evidence of any delusional thought content and thought process is linear and goal-directed. Guarded and evasive. Memory and concentration: AOX3, grossly intact for the purposes of this session Judgment and insight: Chronically poor Assessment major depressive disorder alcohol use disorder severe cannabis use disorder lack of income recurrent legal problems nicotine dependence Plan: -Patient continues to meet criteria for inpatient psychiatric admission for symptom stabilization and safety. Patient has signed adult voluntary form and was placed in patient's chart. -Medications: Continue with Seroquel 100 mg daily at bedtime for mood adjun ct/insomnia, Cymbalta 60 mg daily for mood/anxiety/pain, discontinued Valium and continue with Librium 25 mg 3 times a day for alcohol withdrawal and continue tapering down. -CIWA protocol with when necessary Ativan for alcohol withdrawal. Continue to monitor vital signs. -When necessary Ativan and Haldol for agitation/aggression. -NRT - nicotine patch -SW on board for discharge planning. Encouraged the patient to participate in milieu. Patient is not interested in going to rehab at this time and not interested in medications for cravings for alcohol. Likely discharge in 2-3 days back home.
[2022-02-05] MEDS: DULoxetine HCL 60 MG CAPSULE.DR PO SCH (11:46)
[2022-02-05] MEDS: NICOTINE GUM (POLACRILEX) 2 MG GUM BUCCAL PRN (16:15)
[2022-02-05] MEDS: ACETAMINOPHEN TAB 325 MG TAB PO PRN (16:15)
[2022-02-05] MEDS: QUEtiapine 100 MG TAB PO SCH (20:19)
[2022-02-05] MEDS: LORazepam 1 MG TAB PO PRN (20:20)
[2022-02-06] MEDS: LORazepam 1 MG TAB PO PRN (03:24)
[2022-02-06] MEDS: DULoxetine HCL 60 MG CAPSULE.DR PO SCH (08:46)
[2022-02-06] MEDS: ACETAMINOPHEN TAB 325 MG TAB PO PRN ×2 (08:47→14:37)
[2022-02-06] MEDS: chlordiazePOXIDE 25 MG CAP PO SCH (08:47)
--- NOTE | 2022-02-06 11:13 | P.PN ---
Progress Note - Text Progress Note Date: 02/06/22 Interval History: Patient was seen lying in his bed this morning and was directable and agreeable to speak with residential mortgage underwriter in the office. Patient appears to be less irritable today with residential mortgage underwriter. He continues to be focused on medications that will make him feel like he has more energy. He asked about potentially going on Vistaril. We spoke more about his withdrawal medications and states that "I'm not withdrawing from anything". Continues to show fairly poor insight and judgment. He states that his mood and anxiety (improving. States that he slept fairly last night and can't Haldol and Ativan "to go to sleep". He claims that his appetite is fair. He is going to minimal groups. At this time patient denies any homical ideations, intent or plan. Patient denies any auditory, visual hallucinations and denies any paranoia or delusions. Patient denies any side effects from the medications and has been compliant with meds. Mental Status Exam: General Appearance: Patient appears to be overweight, poor hygiene and grooming, stated age is less lethargic, directable Behavior: Patient is calmly seated without any agitated behavior. He is less irritable today. Speech: Patient's speech is fluent and nonpressured. Monotone. Evasive, improving mildly. Mood/Affect: Mood is irritable and depressed, affect is congruent and constricted. Suicidality/Homicidality: Patient denies having any suicidal or homicidal ideation intent or plan. Perceptions: Patient denies any visual hallucinations and denies any auditory hallucinations Though content/process: There is no evidence of any delusional thought content and thought process is linear and goal-directed. Guarded and evasive, improving mildly Memory and concentration: AOX3, grossly intact for the purposes of this session Judgment and insight: Chronically poor, improving mildly Assessment major depressive disorder alcohol use disorder severe cannabis use disorder lack of income recurrent legal problems nicotine dependence Plan: -Patient continues to meet criteria for inpatient psychiatric admission for symptom stabilization and safety. Patient has signed adult voluntary form and was placed in patient's chart. -Medications: Continue with Seroquel 100 mg daily at bedtime for mood adjunct/insomnia, increased Cymbalta 90 mg daily for mood/anxiety/pain, decreased Librium 20 mg 3 times a day for alcohol withdrawal and continue tapering down. -[facility] protocol with when necessary Ativan for alcohol withdrawal. Continue to monitor vital signs. -When necessary Ativan and Haldol for agitation/aggression. -NRT - nicotine patch -SW on board for discharge planning. Encouraged the patient to participate in milieu. Patient is not interested in going to rehab at this time and not interested in medications for cravings for alcohol. Likely discharge in 1-2 days back home.
[2022-02-06] MEDS: NICOTINE GUM (POLACRILEX) 2 MG GUM BUCCAL PRN ×3 (14:35→22:24)
[2022-02-06 14:54] VITALS: TEMP 97.7
[2022-02-06] MEDS: QUEtiapine 100 MG TAB PO SCH (21:26)
[2022-02-07 01:20] LABS: Glucose,Whole Blood 119 mg/dL (70-110)
[2022-02-07] MEDS: DULoxetine HCL 30 MG CAPSULE.DR PO SCH (08:55)
[2022-02-07] MEDS: NICOTINE GUM (POLACRILEX) 2 MG GUM BUCCAL PRN ×4 (08:58→20:54)
[2022-02-07] MEDS: ACETAMINOPHEN TAB 325 MG TAB PO PRN ×3 (08:58→18:59)
--- NOTE | 2022-02-07 11:11 | P.PN ---
Progress Note - Text Progress Note Date: 02/07/22 Interval History: Patient was seen wandering the hallways this morning and was agreeable to be c orrected in the office. Patient appeared to have an improvement in his affect today and claims that he is doing better on medications. He states that he is having less racing thoughts and flight of ideas. He claims he did manage to sleep throughout the night however was requesting an increase in his Seroquel. He states that he feels like he has more energy level during the day. He is not reporting any significant withdrawal symptoms at this time. States that he is going to some groups. He claims that his anxiety has been improving as well. He shows an increase and improvement in his insight and judgment today. He claims that his appetite is fair. He was more thankful today about his treatment and was looking forward to discharge. At this time patient denies any homical ideations, intent or plan. Patient denies any auditory, visual hallucinations and denies any paranoia or delusions. Patient denies any side effects from the medications and has been compliant with meds. Mental Status Exam: General Appearance: Patient appears to be overweight, improving hygiene and grooming, stated age is more alert today, directable and cooperative Behavior: Patient is calmly seated without any agitated behavior. He is less irritable today and more cooperative. Speech: Patient's speech is fluent and nonpressured. Monotone. Evasive, improving mildly. Mood/Affect: Mood is improving, affect is congruent and constricted. Suicidality/Homicidality: Patient denies having any suicidal or homicidal ideation intent or plan. Perceptions: Patient denies any visual hallucinations and denies any auditory hallucinations Though content/process: There is no evidence of any delusional thought content and thought process is linear and goal-directed. Memory and concentration: AOX3, grossly intact for the purposes of this session Judgment and insight: improving mildly Assessment major depressive disorder alcohol use disorder severe cannabis use disorder lack of income recurrent legal problems nicotine dependence Plan: -Patient continues to meet criteria for inpatient psychiatric admission for symptom stabilization and safety. Patient has signed adult voluntary form and was placed in patient's chart. -Medications: Increase Seroquel 150 mg daily at bedtime for mood adjunct/insomnia, Cymbalta 90 mg daily for mood/anxiety/pain, decreased Librium 10 mg 3 times a day for alcohol withdrawal and continue tapering down. -CIWA protocol with when necessary Ativan for alcohol withdrawal. Continue to monitor vital signs. -When necessary Ativan and Haldol for agitation/aggression. -NRT - nicotine patch -SW on board for discharge planning. Encouraged the patient to participate in milieu. Patient is not interested in going to rehab at this time and not interested in medications for cravings for alcohol. Likely discharge tomorrow back home.
[2022-02-07 11:17] VITALS: BP 139/82; PULSE 89; RESP 16
[2022-02-07] MEDS: LORazepam 1 MG TAB PO PRN ×2 (12:36→20:52)
[2022-02-07] MEDS ORDERED: QUEtiapine 100 MG TAB PO SCH (21:00)
[2022-02-08] MEDS: DULoxetine HCL 30 MG CAPSULE.DR PO SCH (08:53)
[2022-02-08] MEDS: ACETAMINOPHEN TAB 325 MG TAB PO PRN (08:55)
[2022-02-08] MEDS: NICOTINE GUM (POLACRILEX) 2 MG GUM BUCCAL PRN (08:57)
--- NOTE | 2022-02-08 10:03 | P.DS ---
Providers Date of admission: 02/03/22 14:24 Expected date of discharge: 02/08/22 Attending physician: Eugene Mantilla MD Consults: 02/03/22 14:28 Consult Physician Routine Consulting Provider: Kelly Sawant Consult Reason/Comments: medical management Do you want consulting provider notified?: Yes Primary care physician: Stated None - Discharge Diagnosis(es) (1) Major depressive disorder Current Visit: Yes Status: Acute Priority: High (2) Alcohol use disorder, severe, dependence Current Visit: Yes Status: Acute Priority: High (3) Cannabis use disorder Current Visit: Yes Status: Acute Priority: Low (4) Nicotine dependence Current Visit: Yes Status: Acute Priority: Low Hospital Course: Admission HPI: Admission note was completed by Dr. Santiago "He is a 36-year-old single male admitted to the psychiatric unit voluntarily with complaints of depression and suicidal ideation. I reviewed the medical record and interviewed the patient. He is known to this psychiatric unit from his multiple past admissions. He was last discharged from unit in February 2021 with the diagnoses of major depressive disorder, alcohol use disorder and nicotine dependence. He was evasive about the reason for this admission and he specifically avoided mentioning suicide. When I asked him if he had had suicidal ideation prior to admission he replied that he replied that he "might have." He perseverated on needing a rest. He also perseverates about a belief that other people either want to know or are talking about his private life. I was unable to determine from interview with a he was experiencing psychotic symptoms such as hallucinations, ideas reference or paranoia. He acknowledged that he was drinking alcohol but was unspecific about the amount and frequency. He talked about gradually reducing the amount that he has been drinking. During the inquiry about his alcohol use he mentioned that he was unable to drink because he had been incarcerated for "a year or maybe 6 months." When I asked about the incarceration he replied that he had a "scuffle" with the police. Apparently he was released from long-term 2 weeks ago. After she left long-term he "went to [place]" for a while and then came back to [facility]. He currently has no stable housing, no income and no identification. His breath alcohol level on presentation to the ED was 0.094. He complained that he was "overmedicated" while he was incarcerated and has "wean myself" off Seroquel and BuSpar." Hospital course: Upon admission to the unit patient was directable and agreeable to commence treatment and signed adult voluntary form. Patient got along well with other patients on the unit and followed unit protocol. Patient was compliant with the medications and denied any side effects throughout hospital course. Patient was started on Librium scheduled which was gradually tapered down for alcohol withdrawal. Patient was also on CIWA protocol with when necessary Ativan for wi thdrawal. Patient was restarted back on his Seroquel and increased to a dose of 200 mg daily at bedtime for mood adjunct/anxiety/insomnia. Patient was also restarted back on Cymbalta and increased to a dose of 90 mg daily for mood/anxiety.. Patient spoke of his stressors and engaged in therapy both group and individual. Patient was also seen by medical team for history and physical exam. Throughout the course of the hospitalization patient gradually improved with regards to mood, anxiety, sleep and returned back to their baseline level of functioning. On the day of discharge patient denied any suicidal or homicidal ideations intent or plan denied any auditory or visual hallucinations. Patient endorsed wanting to live for his health and family. The patient denied any access to guns or weapons. Patient denied any paranoia and did not endorse any delusions. Patient does have a significant history of substance abuse and was counseled on abstaining from all substances including alcohol and marijuana. Patient was offered however declined inpatient substance-abuse rehab. Patient was also counseled on the medications and need for regular compliance and was encouraged to follow-up with their outpatient appointment for mental health and also for primary care. Prior to discharge a family meeting will be arranged by social science research assistant to answer any questions and ensure safety upon discharge. Mental status exam: General Appearance: Patient appears to be overweight, stated age is alert, pleasant, and cooperative. Patient is in no acute distress and has improved hygiene and grooming Behavior: Patient is calmly seated without any agitated behavior. Speech: Patient's speech is fluent and nonpressured. Mood/Affect: Patient reports their mood is "ok", affect is congruent and euthy lynne. Suicidality/Homicidality: Patient denies having any suicidal or homicidal ideation intent or plan. Perceptions: Patient denies any auditory or visual hallucinations. Though content/process: There is no evidence of any delusional thought content and thought process is linear and goal-directed. more future oriented Memory and concentration: AOX3, grossly intact for the purposes of this session. Can spell "WORLD" backwards correctly. Judgment and insight: chronically poor, however has improved with guarded prognosis Impression: Major depressive disorder Alcohol use disorder, severe dependence Cannabis use disorder Nicotine dependence Plan: -Continue with discharge today as patient has improved and stabilized psychiatrically and is not currently an imminent threat to himself and/or others. Patient will remain at chronically elevated risk for harm to self and/or others due to his impulsivity and polysubstance abuse. -Continue medications: Cymbalta 90 mg daily for mood/anxiety, Librium was discontinued. Seroquel 200 mg daily at bedtime for mood adjunct/anxiety/insomnia. -Patient was counseled on the need for medication compliance and appropriate follow-up at mental health and also primary care for medical issues. Patient verbalized understanding and agreed. -Social work to arrange for and conduct family meeting to ensure safety upon discharge and answer any questions/concerns. Social work also to arrange for patients follow up appointments for psychiatric care along with follow up with primary care provider. -Patient counseled on abstaining from recreational drugs and marijuana and alcohol. Was informed/educated on the adverse effects on their physical and mental health. Patient verbally agreed and understood. Patient was offered substance abuse treatment however declined at this time. -Patient was instructed to return to the hospital or seek immediate medical care if their psychiatric or medical symptoms do worsen or reoccur. Allergies Allergy/AdvReac Type Severity Reaction Status Date / Time No Known Allergies Allergy Verified 02/03/22 15:53 Laboratory Results WBC 5.3 k/uL (3.8-10.6) 02/03/22 12:45 RBC 5.01 m/uL (4.30-5.90) 02/03/22 12:45 Hgb 15.8 gm/dL (13.0-17.5) 02/03/22 12:45 Hct 46.1 % (39.0-53.0) 02/03/22 12:45 MCV 91.9 fL (80.0-100.0) 02/03/22 12:45 MCH 31.5 pg (25.0-35.0) 02/03/22 12:45 MCHC 34.3 g/dL (31.0-37.0) 02/03/22 12:45 RDW 13.0 % (11.5-15.5) 02/03/22 12:45 Plt Count 153 k/uL (150-450) 02/03/22 12:45 MPV 8.9 02/03/22 12:45 Neutrophils % 87 % 02/03/22 12:45 Lymphocytes % 8 % 02/03/22 12:45 Monocytes % 3 % 02/03/22 12:45 Eosinophils % 0 % 02/03/22 12:45 Basophils % 1 % 02/03/22 12:45 Neutrophils # 4.6 k/uL (1.3-7.7) 02/03/22 12:45 Lymphocytes # 0.4 k/uL (1.0-4.8) L 02/03/22 12:45 Monocytes # 0.1 k/uL (0-1.0) 02/03/22 12:45 Eosinophils # 0.0 k/uL (0-0.7) 02/03/22 12:45 Basophils # 0.1 k/uL (0-0.2) 02/03/22 12:45 Sodium 138 mmol/L (137-145) 02/03/22 12:45 Potassium 3.5 mmol/L (3.5-5.1) 02/03/22 12:45 Chloride 103 mmol/L (98-107) 02/03/22 12:45 Carbon Dioxide 25 mmol/L (22-30) 02/03/22 12:45 Anion Gap 10 mmol/L 02/03/22 12:45 BUN 11 mg/dL (9-20) 02/03/22 12:45 Creatinine 0.74 mg/dL (0.66-1.25) 02/03/22 12:45 Est GFR (CKD-EPI)AfAm >90 (>60 ml/min/1.73 sqM) 02/03/22 12:45 Est GFR (CKD-EPI)NonAf >90 (>60 ml/min/1.73 sqM) 02/03/22 12:45 Glucose 168 mg/dL (74-99) H 02/03/22 12:45 POC Glucose (mg/dL) 119 mg/dL (70-110) H 02/07/22 00:03 POC Glu Poker Room Manager ID Salina Randolph 02/07/22 00:[address] Glu mg/dL 95 02/04/22 06:35 Hemoglobin A1c 5.0 % (0.0-6.0) 02/04/22 06:35 Calcium 9.1 mg/dL (8.4-10.2) 02/03/22 12:45 Total Bilirubin 0.6 mg/dL (0.2-1.3) 02/03/22 12:45 AST 121 U/L (17-59) H 02/03/22 12:45 ALT 128 U/L (4-49) H 02/03/22 12:45 Alkaline Phosphatase 92 U/L (38-126) 02/03/22 12:45 Total Protein 6.8 g/dL (6.3-8.2) 02/03/22 12:45 Albumin 4.3 g/dL (3.5-5.0) 02/03/22 12:45 Triglycerides 99.40 mg/dL (0.00-149.00) 02/04/22 06:35 Cholesterol 136.00 mg/dL (0.00-200.00) 02/04/22 06:35 LDL Cholesterol, Calc 61.6 mg/dL (0.0-131.0) 02/04/22 06:35 VLDL Cholesterol, Calc 19.88 mg/dL (5.00-40.00) 02/04/22 06:35 HDL Cholesterol 54.50 mg/dL (40.00-60.00) 02/04/22 06:35 Cholesterol/HDL Ratio 2.50 Ratio 02/04/22 06:35 TSH 0.572 mIU/L (0.465-4.680) 02/04/22 06:35 Urine Color Yellow 02/03/22 06:51 Urine Appearance Clear (Clear) 02/03/22 06:51 Urine pH 6.0 (5.0-8.0) 02/03/22 06:51 Ur Specific [place] 1.016 (1.001-1.035) 02/03/22 06:51 Urine Protein Trace (Negative) H 02/03/22 06:51 Urine Glucose (UA) Negative (Negative) 02/03/22 06:51 Urine Ketones Negative (Negative) 02/03/22 06:51 Urine Blood Negative (Negative) 02/03/22 06:51 Urine Nitrite Negative (Negative) 02/03/22 06:51 Urine Bilirubin Negative (Negative) 02/03/22 06:51 Urine Urobilinogen 2.0 mg/dL (<2.0) 02/03/22 06:51 Ur Leukocyte Esterase Negative (Negative) 02/03/22 06:51 Urine Opiates Screen Not Detected (NotDetected) 02/03/22 06:51 Ur Oxycodone Screen Not Detected (NotDetected) 02/03/22 06:51 Urine Methadone Screen Not Detected (NotDetected) 02/03/22 06:51 Ur Propoxyphene Screen Not Detected (NotDetected) 02/03/22 06:51 Ur Barbiturates Screen Not Detected (NotDetected) 02/03/22 06:51 U Tricyclic Antidepress Not Detected (NotDetected) 02/03/22 06:51 Ur Phencyclidine Scrn Not Detected (NotDetected) 02/03/22 06:51 Ur Amphetamines Screen Not Detected (NotDetected) 02/03/22 06:51 U Methamphetamines Scrn Not Detected (NotDetected) 02/03/22 06:51 U Benzodiazepines Scrn Not Detected (NotDetected) 02/03/22 06:51 Urine Cocaine Screen Not Detected (NotDetected) 02/03/22 06:51 U Marijuana (THC) Screen Detected (NotDetected) H 02/03/22 06:51 Coronavirus (PCR) Not Detected (Not Detectd) 02/03/22 12:45 Vital Signs Temp 97.7 F 02/07/22 11:15 Pulse 89 02/07/22 11:15 Resp 16 02/07/22 11:15 BP 139/82 02/07/22 11:15 Pulse Ox 97 02/07/22 11:15 FiO2 Patient Condition at Discharge: Stable Plan - Discharge Summary Discharge Rx Participant: No New Discharge Prescriptions: New DULoxetine HCL [Cymbalta] 90 mg PO DAILY 30 Days cap QUEtiapine [SEROquel] 200 mg PO HS 30 Days tab Nicotine Gum (Polacrilex) [Nicorette] 2 mg BUCCAL Q2HR PRN 28 Days pieceofgum PRN Reason: Nicotine Cravings Discontinued busPIRone HCL 15 mg PO DIRECTED DULoxetine HCL [Cymbalta] 60 mg PO DIRECTED Discharge Medication List DULoxetine HCL [Cymbalta] 90 mg PO DAILY 30 Days cap 02/08/22 [Rx] Nicotine Gum (Polacrilex) [Nicorette] 2 mg BUCCAL Q2HR PRN 28 Days pieceofgum 02/08/22 [Rx] QUEtiapine [SEROquel] 200 mg PO HS 30 Days tab 02/08/22 [Rx] Follow up Appointment(s)/Referral(s): [facility] [NON-STAFF] - 1 Week Patient Instructions/Handouts: How to Stop Smoking (ED), Depression (DC) Activity/Diet/Wound Care/Special Instructions: Avoid the use of street drugs and alcohol. Take all prescriptions as prescribed. When you are in need of refills on your medications, please contact your medical provider and/or outpatient psychiatrist to have this done. Please go to scheduled outpatient appointment for aftercare treatment. If symptoms return or become worse, call the crisis line at and/or go to the nearest emergency room for evaluation. Discharge Disposition: HOME SELF-CARE
[2022-02-08] MEDS: LORazepam 1 MG TAB PO PRN (10:34)
== END 2022-02-08 14:22 | disposition home or self-care (01) | DRG 881 ==
LOC: EC 05:30 → 3MHU 14:24
PROVIDERS: ADMIT Psychiatry & Neurology Psychiatry; ATTEND Psychiatry & Neurology Psychiatry
PROC: HZ2ZZZZ Detoxification Services for Substance Abuse Treatment (ICD-10-PCS; principal; 2022-02-03)
DX: F32.A Depression, unspecified (principal); F10.239 Alcohol dependence with withdrawal, unspecified; R45.851 Suicidal ideations; F17.210 Nicotine dependence, cigarettes, uncomplicated; F41.9 Anxiety disorder, unspecified; G47.00 Insomnia, unspecified; F22 Delusional disorders; F12.10 Cannabis abuse, uncomplicated; Z79.899 Other long term (current) drug therapy; Z20.822 Contact with and (suspected) exposure to COVID-19; Z86.718 Personal history of other venous thrombosis and embolism; Z90.49 Acquired absence of other specified parts of digestive tract
CPT/HCPCS: 36415; 80053; 80061; 80306; 81003; 82075; 83036; 84443; 85025; 87635; 96372; 99284; 99285

== ENCOUNTER 2022-02-20 13:33 | Observation (INO) | payer OTHER ==
[2022-02-20] MEDS ORDERED: DIPH,PERTUS(ACELL)TETVAC-LF 0.5 ML VIAL IM ONE (13:38)
[2022-02-20] MEDS ORDERED: SODIUM CHLORIDE 0.9% 1,000 ML IV STA (13:38)
[2022-02-20 14:02] LABS: Basophils # (A) 0.1 k/uL (0-0.2); Basophils % (A) 1 %; Eosinophils # (A) 0.1 k/uL (0-0.7); Eosinophils % (A) 1 %; HCT 48.5 % (39.0-53.0); HGB 16.8 gm/dL (13.0-17.5); Lymphocytes # (A) 1.9 k/uL (1.0-4.8); Lymphocytes % (A) 23 %; MCHC 34.7 g/dL (31.0-37.0); MCV 95.2 fL (80.0-100.0); Mean Platelet Volume 7.6; Monocytes # (A) 0.5 k/uL (0-1.0); Monocytes % (A) 6 %; Neutrophils # (A) 5.5 k/uL (1.3-7.7); Neutrophils % (A) 67 %; RBC 5.09 m/uL (4.30-5.90); RDW 13.8 % (11.5-15.5); WBC 8.2 k/uL (3.8-10.6)
[2022-02-20] MEDS ORDERED: ONDANSETRON 4 MG/2 ML VIAL IVP PRN (14:06)
[2022-02-20 14:08] LABS: Platelet Count 337 k/uL (150-450)
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
[2022-02-20 14:18] LABS: ALT 105 U/L (4-49); African American GFR (CKD) >90 (>60 ml/min/1.73 sqM); Albumin 4.7 g/dL (3.5-5.0); Alkaline Phosphatase 108 U/L (38-126); Anion Gap 19 mmol/L; Blood Urea Nitrogen 3 mg/dL (9-20); Carbon Dioxide 18 mmol/L (22-30); Chloride 104 mmol/L (98-107); Non-African American GFR(CKD) >90 (>60 ml/min/1.73 sqM); Sodium 141 mmol/L (137-145); Total Protein 7.1 g/dL (6.3-8.2)
[2022-02-20 14:19] LABS: Calcium 9.1 mg/dL (8.4-10.2); Glucose 111 mg/dL (74-99)
[2022-02-20 14:20] LABS: AST 70 U/L (17-59); Total Bilirubin 0.7 mg/dL (0.2-1.3)
[2022-02-20 14:22] LABS: Alcohol 157 mg/dL
[2022-02-20 14:28] LABS: Prothrombin Time 10.7 sec (9.0-12.0)
[2022-02-20] MEDS ORDERED: LIDOCAINE 1% INJ 10MG/ML (20 ML MDV) SQ ONE (14:42)
[2022-02-20 14:43] LABS: Partial Thromboplastin Time 21.7 sec (22.0-30.0)
[2022-02-20] MEDS ORDERED: NALOXONE 0.4 MG/ML 1 ML VIAL IV PRN (14:49)
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
[2022-02-20] MEDS: SODIUM CHLORIDE 0.9% 1,000 ML IV SCH (16:03)
[2022-02-20 16:09] LABS: Amphetamine Screen,Urine Detected (NotDetected); Barbiturate Screen,Urine Not Detected (NotDetected); Benzodiazepines Screen,Urine Detected (NotDetected); Cocaine Screen,Urine Detected (NotDetected); Methadone Screen, Urine Not Detected (NotDetected); Opiate Screen,Urine Not Detected (NotDetected); Oxycodone Screen, Urine Not Detected (NotDetected); Phencyclidine Screen,Urine Not Detected (NotDetected); Tricyclic Antidepressant,Urine Not Detected (NotDetected); Urn Cannabinoid Scrn Not Detected (NotDetected)
[2022-02-20] MEDS: MORPHINE SULFATE 4 MG/ML SYRINGE IV PRN (19:14)
[2022-02-21] MEDS: SODIUM CHLORIDE 0.9% 1,000 ML IV SCH ×3 (04:18→15:27)
[2022-02-21] MEDS: MORPHINE SULFATE 4 MG/ML SYRINGE IV PRN ×2 (05:08→09:06)
[2022-02-21 10:34] LABS: Basophils # (A) 0.05 X 10*3/uL (0.00-0.10); Basophils % (A) 0.5 %; Eosinophils # (A) 0.07 X 10*3/uL (0.04-0.35); Eosinophils % (A) 0.7 %; HCT 40.1 % (39.6-50.0); HGB 14.2 g/dL (13.0-17.0); Immature Grans, Automated 0.6 %; Lymphocytes # (A) 1.59 X 10*3/uL (0.90-5.00); Lymphocytes % (A) 15.3 %; MCH 33.2 pg (27.0-32.0); MCHC 35.4 g/dL (32.0-37.0); MCV 93.7 fL (80.0-97.0); Mean Platelet Volume 10.7 fL (9.5-12.2); Monocytes # (A) 0.99 X 10*3/uL (0.20-1.00); Monocytes % (A) 9.5 %; NRBC Per 100 WBC 0 /100 WBCS (0.0-0.0); Neutrophils # (A) 7.63 X 10*3/uL (1.80-7.70); Neutrophils % (A) 73.4 %; Platelet Count 249 X 10*3/uL (140-440); RBC 4.28 X 10*6/uL (4.40-5.60); WBC 10.39 X 10*3/uL (4.50-10.00)
[2022-02-21 10:51] LABS: African American GFR (CKD) 133.2 (60.0-200.0); Anion Gap 8.4 mmol/L (10.00-18.00); BUN/Creat Ratio 5.75 Ratio (12.00-20.00); Blood Urea Nitrogen 4.6 mg/dL (9.0-27.0); Calcium 8.1 mg/dL (8.7-10.3); Carbon Dioxide 24.6 mmol/L (20.0-27.5); Non-African American GFR(CKD) 114.9 (60.0-200.0); Potassium 3.7 mmol/L (3.5-5.5)
[2022-02-21] MEDS ORDERED: HYDROcodone/APAP 5-325MG 1 EACH TAB PO PRN (11:28)
[2022-02-21] MEDS ORDERED: THIAMINE 100 MG/ML 2 ML VIAL IM STA (11:29)
[2022-02-21] MEDS ORDERED: LORazepam 2 MG/ML INJ IV PRN ×3 (11:29)
[2022-02-21] MEDS ORDERED: MULTIVITAMINS, THERA 1 EACH TAB PO SCH (11:30)
[2022-02-21 12:30] VITALS: BP 105/61; PULSE 85; RESP 18; TEMP 98.1
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
[2022-02-21] MEDS ORDERED: LORazepam 1 MG/0.5 ML VIAL IV PRN ×3 (14:18)
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
[2022-02-21] MEDS ORDERED: THIAMINE 100 MG TAB PO SCH (17:30)
== END 2022-02-21 15:27 | disposition home or self-care (01) ==
LOC: EC 13:33 → 5NMEDONC 14:49 → 3SCARD 21:52 → 5NMEDONC 21:54
PROVIDERS: ADMIT Surgery; ATTEND Surgery
DX: S31.111A Laceration without foreign body of abdominal wall, left upper quadrant without penetration into peritoneal cavity, initial encounter (principal); F10.120 Alcohol abuse with intoxication, uncomplicated; R79.89 Other specified abnormal findings of blood chemistry; M54.50 Low back pain, unspecified; G89.29 Other chronic pain; F41.9 Anxiety disorder, unspecified; J98.11 Atelectasis; F32.A Depression, unspecified; K42.9 Umbilical hernia without obstruction or gangrene; F17.200 Nicotine dependence, unspecified, uncomplicated; I10 Essential (primary) hypertension; F14.90 Cocaine use, unspecified, uncomplicated; F15.90 Other stimulant use, unspecified, uncomplicated; D68.51 Activated protein C resistance; Z79.899 Other long term (current) drug therapy; Z86.718 Personal history of other venous thrombosis and embolism; Z90.49 Acquired absence of other specified parts of digestive tract; Z82.3 Family history of stroke; Z23 Encounter for immunization; Z82.49 Family history of ischemic heart disease and other diseases of the circulatory system; Y90.6 Blood alcohol level of 120-199 mg/100 ml; X99.1XXA Assault by knife, initial encounter; Y92.038 Other place in apartment as the place of occurrence of the external cause
CPT/HCPCS: 96376; 96361; 96372; 90471; 96360; 96365; 96375; 99285; 36415; 93005; 86900; 86901; 80053; 80048; 84484; 85025 ×2; 85610; 85730; 86850; 80306; 71260; 74177; 90715; 12001; G0378 ×2; G0480; J2270 ×2; J3411; J0690; J2001; Q9967; 80320

== ENCOUNTER 2022-04-07 19:32 | Emergency (ER) | payer OTHER ==
[2022-04-07 19:49] VITALS: TEMP 98.9
[2022-04-07] MEDS ORDERED: LIDOCAINE 1% INJ 10MG/ML (30 ML VIAL-PF) SQ ONE (20:06)
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
--- NOTE | 2022-04-07 20:49 | XR ---
EXAMINATION TYPE: XR nasal bone DATE OF EXAM: 04/07/2022 COMPARISON: NONE HISTORY: Pain TECHNIQUE: Review FINDINGS: Nasal bone is intact. Maxillary spine is intact. Orbital margins appear intact. No fracture seen. IMPRESSION: Negative nasal bone exam.
[2022-04-08 01:23] LABS: Amphetamine Screen,Urine Not Detected (NotDetected); Barbiturate Screen,Urine Not Detected (NotDetected); Benzodiazepines Screen,Urine Not Detected (NotDetected); Cocaine Screen,Urine Not Detected (NotDetected); Methadone Screen, Urine Not Detected (NotDetected); Opiate Screen,Urine Not Detected (NotDetected); Oxycodone Screen, Urine Not Detected (NotDetected); Phencyclidine Screen,Urine Not Detected (NotDetected); Tricyclic Antidepressant,Urine Not Detected (NotDetected); Urn Cannabinoid Scrn Not Detected (NotDetected)
[2022-04-08] MEDS ORDERED: ACETAMINOPHEN TAB 325 MG TAB PO STA (11:11)
[2022-04-08 11:18] VITALS: BP 132/81; PULSE 97; RESP 16
== END 2022-04-08 11:18 | disposition home or self-care (01) ==
LOC: EC 19:32
DX: R45.1 Restlessness and agitation (principal); F10.120 Alcohol abuse with intoxication, uncomplicated; Y90.9 Presence of alcohol in blood, level not specified; Z86.718 Personal history of other venous thrombosis and embolism; F41.9 Anxiety disorder, unspecified; F32.A Depression, unspecified; F17.200 Nicotine dependence, unspecified, uncomplicated; Z79.899 Other long term (current) drug therapy
CPT/HCPCS: 82075; 70160; 72125; 70450; 99285; 12013; J2001; 80306

== ENCOUNTER 2022-05-26 20:17 | Inpatient (IN) | payer MEDICAID, OTHER ==
--- NOTE | 2022-05-27 01:02 | ED ---
Psych HPI - General Source: patient, RN notes reviewed, old records reviewed Mode of arrival: ambulatory Limitations: no limitations - History of Present Illness MD Complaint: suicidal ideation, feels depressed -: minutes(s) Associated Psychiatric Symptoms: depression, suicidal ideation Quality: constant Improves With: none Worsens With: none Context: recent alcohol abuse Associated Symptoms: denies other symptoms Treatments Prior to Arrival: placed on mental health hold <Tucker Lopez - Last Filed: 05/27/22 05:53> <Uche Shane - Last Filed: 05/27/22 14:15> - General Chief Complaint: Psychiatric Symptoms Stated Complaint: ETOH Time Seen by Provider: 05/26/22 20:45 - Related Data Home Medications Medication Instructions Recorded Confirmed No Known Home Medications 05/26/22 05/26/22 Allergies Allergy/AdvReac Type Severity Reaction Status Date / Time No Known Allergies Allergy Verified 05/26/22 20:38 Review of Systems ROS Other: All systems not noted in ROS Statement are negative. <Tucker Lopez - Last Filed: 05/27/22 05:53> ROS Other: All systems not noted in ROS Statement are negative. <Uche Shane - Last Filed: 05/27/22 14:15> ROS Statement: Those systems with pertinent positive or pertinent negative responses have been documented in the HPI. Past Medical History Past Medical History: Deep Vein Thrombosis (DVT) Additional Past Medical History / Comment(s): ETOH abuse, past withdrawls with tremors/nausea/seizure, chronic low back pain, recent R knee/leg pain, DVT R leg, Catogory 5 blood disorder. History of Any Multi-Drug Resistant Organisms: None Reported Past Surgical History: Cholecystectomy, Orthopedic Surgery Additional Past Surgical History / Comment(s): right knee tendon surgery Past Anesthesia/Blood Transfusion Reactions: Motion Sickness Additional Past Anesthesia/Blood Transfusion Reaction / Comment(s): Clausterphobia. Past Psychological History: Anxiety, Depression Smoking Status: Current every day smoker Past Alcohol Use History: Abuse Past Drug Use History: None Reported - Past Family History Father History Unknown: Yes Family Medical History: CVA/TIA Additional Family Medical History / Comment(s): Unable to obtain family history secondary altered mentation Mother Family Medical History: Congestive Heart Failure (CHF) <Tucker Lopez - Last Filed: 05/27/22 05:53> General Exam Limitations: no limitations General appearance: alert, in no apparent distress Head exam: Present: atraumatic, normocephalic, normal inspection Eye exam: Present: normal appearance, PERRL, EOMI. Absent: scleral icterus, conjunctival injection, periorbital swelling ENT exam: Present: normal exam, mucous membranes moist Neck exam: Present: normal inspection. Absent: tenderness, meningismus, lymphadenopathy Respiratory exam: Present: normal lung sounds bilaterally. Absent: respiratory distress, wheezes, rales, rhonchi, stridor Cardiovascular Exam: Present: regular rate, normal rhythm, normal heart sounds. Absent: systolic murmur, diastolic murmur, rubs, gallop, clicks GI/Abdominal exam: Present: soft, normal bowel sounds. Absent: distended, tenderness, guarding, rebound, rigid Extremities exam: Present: normal inspection, full ROM, normal capillary refill. Absent: tenderness, pedal edema, joint swelling, calf tenderness Back exam: Present: normal inspection Neurological exam: Present: alert, oriented X3, CN II-XII intact Psychiatric exam: Present: normal affect, normal mood Skin exam: Present: warm, dry, intact, normal color. Absent: rash <Tucker Lopez - Last Filed: 05/27/22 05:53> Course Vital Signs 05/26/22 05/27/22 20:33 09:27 Temperature 97.8 F 98.5 F Pulse Rate 108 H 98 Respiratory 20 18 Rate Blood Pressure 158/93 133/73 O2 Sat by Pulse 99 99 Oximetry Medical Decision Making - Lab Data Result diagrams: 05/27/22 01:52 <Tucker Loepz - Last Filed: 05/27/22 05:53> - Lab Data Result diagrams: 05/27/22 01:52 <Uche Shane - Last Filed: 05/27/22 14:15> - Medical Decision Making Patient was medically cleared by the prior emergency department provider. Patient presents with suicidal ideations. He was intoxicated on arrival. Vitals otherwise stable. Suicide precautions, sitter order were added by myself. Patient is pending EPS evaluation. They were notified multiple times regarding the patient and state that they will come to the emergency department for evaluation. Patient was evaluated by Priyanka of EPS, and patient does meet inpatient criteria for psychiatric admission. COVID-19 swab is negative. Patient will be admitted to inpatient psychiatry in stable condition. (Uche Shane) - Lab Data Lab Results 05/27/22 05/27/22 05/27/22 Range/Units 01:52 01:52 13:18 WBC 7.5 (3.8-10.6) k/uL RBC 4.73 (4.30-5.90) m/uL Hgb 16.1 (13.0-17.5) gm/dL Hct 44.0 (39.0-53.0) % MCV 93.0 (80.0-100.0) fL MCH 34.0 (25.0-35.0) pg MCHC 36.6 (31.0-37.0) g/dL RDW 12.7 (11.5-15.5) % Plt Count 206 (150-450) k/uL MPV 7.8 Neutrophils % 52 % Lymphocytes % 39 % Monocytes % 5 % Eosinophils % 1 % Basophils % 1 % Neutrophils # 3.9 (1.3-7.7) k/uL Lymphocytes # 2.9 (1.0-4.8) k/uL Monocytes # 0.4 (0-1.0) k/uL Eosinophils # 0.1 (0-0.7) k/uL Basophils # 0.1 (0-0.2) k/uL Serum Alcohol 227 H* mg/dL Coronavirus (PCR) Not Detected (Not Detectd) Disposition <Tucker Lopez - Last Filed: 05/27/22 05:53> <Uche Shane - Last Filed: 05/27/22 14:15> Clinical Impression: Suicidal ideations, Alcohol intoxication, Encounter for psychiatric assessment Disposition: ADMITTED IP TO THIS HOSP Condition: Stable Referrals: None,Stated [Primary Care Provider] - 1-2 days
[2022-05-27 02:02] LABS: Basophils # (A) 0.1 k/uL (0-0.2); Basophils % (A) 1 %; Eosinophils # (A) 0.1 k/uL (0-0.7); Eosinophils % (A) 1 %; HGB 16.1 gm/dL (13.0-17.5); Lymphocytes # (A) 2.9 k/uL (1.0-4.8); Lymphocytes % (A) 39 %; MCHC 36.6 g/dL (31.0-37.0); Mean Platelet Volume 7.8; Monocytes # (A) 0.4 k/uL (0-1.0); Monocytes % (A) 5 %; Neutrophils # (A) 3.9 k/uL (1.3-7.7); Neutrophils % (A) 52 %; Platelet Count 206 k/uL (150-450); RBC 4.73 m/uL (4.30-5.90); RDW 12.7 % (11.5-15.5); WBC 7.5 k/uL (3.8-10.6)
[2022-05-27] MEDS ORDERED: MAGNESIUM HYDROXIDE 2,400 MG/10 ML CUP PO PRN (15:40)
[2022-05-27] MEDS ORDERED: MAG HYDROX/AL HYDROX/SIMETH 30 ML CUP PO PRN (15:40)
[2022-05-27] MEDS ORDERED: HALOPERIDOL LACTATE 5 MG/ML 1 ML VIAL IM PRN (15:40)
[2022-05-27] MEDS ORDERED: LORazepam 2 MG/ML INJ IM PRN (15:49)
[2022-05-27] MEDS: ACETAMINOPHEN TAB 325 MG TAB PO PRN ×2 (16:10→21:15)
[2022-05-27] MEDS: chlordiazePOXIDE 25 MG CAP PO SCH ×2 (16:12→20:16)
[2022-05-27] MEDS: LORazepam 1 MG TAB PO PRN ×4 (16:13→23:22)
[2022-05-27] MEDS: haloperidoL 5 MG TAB PO PRN (21:15)
[2022-05-27] MEDS: NICOTINE GUM (POLACRILEX) 2 MG GUM BUCCAL PRN (21:15)
[2022-05-27 23:19] LABS: Basophils % (A) 1 %; Eosinophils % (A) 1 %; HCT 41.5 % (39.0-53.0); HGB 14.8 gm/dL (13.0-17.5); Lymphocytes # (A) 1.5 k/uL (1.0-4.8); Lymphocytes % (A) 24 %; MCH 33.1 pg (25.0-35.0); MCHC 35.6 g/dL (31.0-37.0); Monocytes # (A) 0.4 k/uL (0-1.0); Monocytes % (A) 7 %; Neutrophils # (A) 4.2 k/uL (1.3-7.7); Neutrophils % (A) 67 %; Platelet Count 191 k/uL (150-450); RBC 4.46 m/uL (4.30-5.90); RDW 12.2 % (11.5-15.5); WBC 6.3 k/uL (3.8-10.6)
[2022-05-27 23:47] LABS: ALT 51 U/L (4-49); AST 64 U/L (17-59); African American GFR (CKD) >90 (>60 ml/min/1.73 sqM); Alkaline Phosphatase 82 U/L (38-126); Anion Gap 8 mmol/L; Blood Urea Nitrogen 13 mg/dL (9-20); Calcium 8.8 mg/dL (8.4-10.2); Carbon Dioxide 26 mmol/L (22-30); Chloride 101 mmol/L (98-107); Glucose 100 mg/dL (74-99); Non-African American GFR(CKD) >90 (>60 ml/min/1.73 sqM); Potassium 3.8 mmol/L (3.5-5.1); Sodium 135 mmol/L (137-145); Total Bilirubin 1.2 mg/dL (0.2-1.3); Total Protein 6.5 g/dL (6.3-8.2)
--- NOTE | 2022-05-28 02:31 | P.CONS ---
History of Present Illness - Reason for Consult Consult date: 05/27/22 - History of Present Illness The patient is a 36-year-old male with a PMH of EtOH abuse and polysubstance abuse including methamphetamine and went who presented to the emergency room with alcohol intoxication, requesting admission for detox. The patient was admitted to the mental health unit where he was seen and evaluated. The patient reports drinking 1-2/5 of hard liquor including whiskey and vodka daily for the past several years. Reports his last drink was yesterday morning. Patient reports history of delirium tremens. Reports feeling achy at the time of interview but denied any additional complaints. Denied experiencing chest discomfort, shortness of breath, fever, chills, cough, nausea, vomiting, abdom inal pain, diarrhea. Laboratory evaluation in the emergency room was remarkable for serum alcohol level of 227 with AST 64 and ALT 51 Review of systems: Pertinent positives and negatives as discussed in HPI, a complete review of systems was performed and all other systems are negative. Physical examination: General: non toxic, no distress, appears at stated age, obese Derm: no unusual rashes/lesions, no unusual ecchymoses, warm, dry Head: atraumatic, normocephalic, symmetric Eyes: EOMI, no lid lag, anicteric sclera ENT: Nose and ears atraumatic, no thrush, no pharyngeal erythema Neck: trachea midline, supple Mouth: no lip lesion, mucus membranes moist Cardiovascular: S1S2 reg, no murmur, no edema Lungs: CTA bilateral, no rhonchi, no rales , no accessory muscle use Abdominal: soft, nontender to palpation, no guarding Ext: no gross muscle atrophy, no contractures, Neuro: No gross focal neuro deficits noted Psych: Alert, oriented, appropriate affect Assessment/plan Alcohol abuse, impending withdrawal -Thiamine, multivitamin, Librium -CIWA protocol -Strongly advised on importance of cessation -Recommended adequate fluid intake Depression -As per psychiatry Thank you for allowing us to participate in the care of this patient. We will follow peripherally. Do not hesitate to contact us with questions. Someone can be reached from the [facility] hospitalist group at all hours of the day at [phone]. Past Medical History Past Medical History: Deep Vein Thrombosis (DVT) Additional Past Medical History / Comment(s): ETOH abuse, past withdrawls with tremors/nausea/seizure, chronic low back pain, recent R knee/leg pain, DVT R leg, Catogory 5 blood disorder. History of Any Multi-Drug Resistant Organisms: None Reported Past Surgical History: Cholecystectomy, Orthopedic Surgery Additional Past Surgical History / Comment(s): right knee tendon surgery Past Anesthesia/Blood Transfusion Reactions: Motion Sickness Additional Past Anesthesia/Blood Transfusion Reaction / Comm: Clausterphobia. Past Psychological History: Anxiety, Depression Smoking Status: Current every day smoker Past Alcohol Use History: Abuse Past Drug Use History: None Reported - Past Family History Father History Unknown: Yes Family Medical History: CVA/TIA Additional Family Medical History / Comment(s): Unable to obtain family history secondary altered mentation Mother Family Medical History: Congestive Heart Failure (CHF) Medications and Allergies Home Medications Medication Instructions Recorded Confirmed Type No Known Home Medications 05/26/22 05/26/22 History Allergies Allergy/AdvReac Type Severity Reaction Status Date / Time No Known Allergies Allergy Verified 05/26/22 20:38 Physical Exam Vitals: Vital Signs Temp Pulse Pulse Resp BP BP Pulse Ox 05/27/22 15:50 97.5 F L 108 H 18 142/95 97 05/27/22 14:49 90 15 130/84 99 05/27/22 09:27 98.5 F 98 18 133/73 99 Results CBC & Chem 7: 05/27/22 22:53 05/27/22 22:50 Labs: Abnormal Lab Results - Last 24 Hours (Table) 05/27/22 Range/Units 01:52 Serum Alcohol 227 H* mg/dL
[2022-05-28] MEDS: LORazepam 1 MG TAB PO PRN ×3 (03:29→20:51)
[2022-05-28] MEDS: MULTIVITAMINS, THERA 1 EACH TAB PO SCH (08:38)
[2022-05-28] MEDS: NICOTINE 14MG/24HR PATCH TRANSDERM SCH (08:39)
[2022-05-28] MEDS: chlordiazePOXIDE 25 MG CAP PO SCH (08:39)
[2022-05-28] MEDS: FOLIC ACID 1 MG TAB PO SCH (08:39)
[2022-05-28] MEDS: NICOTINE GUM (POLACRILEX) 2 MG GUM BUCCAL PRN ×4 (08:39→20:53)
[2022-05-28] MEDS: THIAMINE 100 MG TAB PO SCH (08:39)
[2022-05-28] MEDS: ACETAMINOPHEN TAB 325 MG TAB PO PRN ×2 (12:19→22:52)
[2022-05-28] MEDS: DULoxetine HCL 30 MG CAPSULE.DR PO SCH (12:55)
--- NOTE | 2022-05-28 13:27 | P.HP ---
Psychiatric H&P - . H&P Date: 05/28/22 History & Physical: Allergies Allergy/AdvReac Type Severity Reaction Status Date / Time No Known Allergies Allergy Verified 05/26/22 20:38 Vital Signs Temp 97.5 F L 05/27/22 15:50 Pulse 109 H 05/28/22 12:21 Resp 18 05/27/22 15:50 BP 133/81 05/28/22 12:21 Pulse Ox 97 05/27/22 15:50 FiO2 Laboratory Last Values WBC 6.3 k/uL (3.8-10.6) 05/27/22 22:53 RBC 4.46 m/uL (4.30-5.90) 05/27/22 22:53 Hgb 14.8 gm/dL (13.0-17.5) 05/27/22 22:53 Hct 41.5 % (39.0-53.0) 05/27/22 22:53 MCV 93.0 fL (80.0-100.0) 05/27/22 22:53 MCH 33.1 pg (25.0-35.0) 05/27/22 22:53 MCHC 35.6 g/dL (31.0-37.0) 05/27/22 22:53 RDW 12.2 % (11.5-15.5) 05/27/22 22:53 Plt Count 191 k/uL (150-450) 05/27/22 22:53 MPV 8.0 05/27/22 22:53 Neutrophils % 67 % 05/27/22 22:53 Lymphocytes % 24 % 05/27/22 22:53 Monocytes % 7 % 05/27/22 22:53 Eosinophils % 1 % 05/27/22 22:53 Basophils % 1 % 05/27/22 22:53 Neutrophils # 4.2 k/uL (1.3-7.7) 05/27/22 22:53 Lymphocytes # 1.5 k/uL (1.0-4.8) 05/27/22 22:53 Monocytes # 0.4 k/uL (0-1.0) 05/27/22 22:53 Eosinophils # 0.0 k/uL (0-0.7) 05/27/22 22:53 Basophils # 0.0 k/uL (0-0.2) 05/27/22 22:53 Sodium 135 mmol/L (137-145) L 05/27/22 22:50 Potassium 3.8 mmol/L (3.5-5.1) 05/27/22 22:50 Chloride 101 mmol/L (98-107) 05/27/22 22:50 Carbon Dioxide 26 mmol/L (22-30) 05/27/22 22:50 Anion Gap 8 mmol/L 05/27/22 22:50 BUN 13 mg/dL (9-20) 05/27/22 22:50 Creatinine 0.93 mg/dL (0.66-1.25) 05/27/22 22:50 Est GFR (CKD-EPI)AfAm >90 (>60 ml/min/1.73 sqM) 05/27/22 22:50 Est GFR (CKD-EPI)NonAf >90 (>60 ml/min/1.73 sqM) 05/27/22 22:50 Glucose 100 mg/dL (74-99) H 05/27/22 22:[address] Glu mg/dL 102 05/27/22 22:53 Hemoglobin A1c 5.2 % (0.0-6.0) 05/27/22 22:53 Calcium 8.8 mg/dL (8.4-10.2) 05/27/22 22:50 Total Bilirubin 1.2 mg/dL (0.2-1.3) 05/27/22 22:50 AST 64 U/L (17-59) H 05/27/22 22:50 ALT 51 U/L (4-49) H 05/27/22 22:50 Alkaline Phosphatase 82 U/L (38-126) 05/27/22 22:50 Total Protein 6.5 g/dL (6.3-8.2) 05/27/22 22:50 Albumin 4.0 g/dL (3.5-5.0) 05/27/22 22:50 TSH 4.220 mIU/L (0.465-4.680) 05/27/22 22:53 Serum Alcohol 227 mg/dL H* 05/27/22 01:52 Coronavirus (PCR) Not Detected (Not Detectd) 05/27/22 13:18 05/28/22 12:35 IDENTIFYING DATA: Patient is a 36-year-old single male admitted to the psychiatric unit voluntarily with complaints of depression and suicidal ideation, currently unemployed, living with friends/family in the area. HISTORY OF PRESENT ILLNESS: Patient has a significant history of alcohol abuse, depression and suicidal thoughts. Patient presented to the ER initially complaining of depression and suicidal ideations. Patient's initial blood alcohol level was 227. Patient has been admitted to the psychiatric unit several times in the past, last admission was in January 2022. Patient was previously on Cymbalta and Seroquel. Patient signed voluntary and agreeable to speak to blog writer today. Patient appears to have fair hygiene and grooming. He was fairly calm and directable today during interview. He had poor eye contact. He states that he has been drinking fairly heavily again. He claims that his drinks about a fifth of liquor a day. He states that he is feeling aggressive and "wanted to fight someone". He claims that his also been feeling depressed and hopeless. States that he was having suicidal thoughts before coming onto the unit. He claims that he was also feeling weak and going through withdrawals. He was fairly vague and evasive about his drinking. He claims that he stopped taking his medications shortly after being discharged from the long-term several weeks ago. He claims that he was there for assault charges. His LFTs were mildly elevated on admission. His sleep has been on and off, appetite is fair. At this time he is denying any suicidal or homicidal ideations intent or plan. He claims that he was hearing voices earlier however did not describe what he is hearing. Denies any visual hallucinations. PAST PSYCHIATRIC HISTORY: He has a history of an alcohol use disorder and depression disorder. He has had several admissions to this unit since 2017. His last psychiatric admission was in January 2022. In addition, he has had multiple presentations to the ED related to alcohol use or mental health complaints. He is currently not active with community mental health. Patient currently is on Cymbalta and Seroquel. PAST MEDICAL HISTORY: See medical consult to the mental health unit ALLERGIES: Known drug ALLERGIES SUBSTANCE USE HISTORY: He has long history of alcohol use and alcohol use problems. He was vague about his amount and frequency however does state that recently has been drinking up to a fifth of alcohol/liquor per day.. Denying any other recreational drug use. Smokes cigarettes. According to the record, he has never participated in a residential substance abuse treatment program in the past. FAMILY PSYCHIATRIC/SUBSTANCE USE HISTORY: He was ambiguous about his family history but denied a family history of suicides or suicide attempts. SOCIAL HISTORY: He is single and has one son whom he does not have custody. He is unemployed and has no income. He did not serve in the . He left school in 11th grade but later earned a GED. He has had multiple legal problems including assault, resisting arrest, domestic violence and drunk and disorderly. He is currently living amongst friends and family in the area. MENTAL STATUS EXAM: General Appearance: Patient appears to be tall, well-built, stated age is alert, directable, and attempts to cooperate. Patient appears to have fair hygiene and grooming. Poor eye contact. Behavior: Patient is seated without any agitated behavior. Attempts to cooperate. Guarded at times. Speech: Patient's speech is fluent and nonpressured. [place]. Vague. Mood/Affect: Patient reports their mood is depressed and anxious, affect is congruent and constricted. Suicidality/Homicidality: Patient denies having any homicidal ideation intent or plan. Denies any suicidal ideations intent or plan Perceptions: Patient denies any visual hallucinations and admits to auditory hallucinations, is not describe what they are. Though content/process: There is no evidence of any delusional thought content and thought process is linear and goal-directed. Whitmore. Memory and concentration: AOX3, grossly intact for the purposes of this session. Can spell "WORLD" backwards Judgment and insight: poor STRENGTHS: Relatively good physical health, past engagement with mental health services WEAKNESSES: Lack of housing, lack of income, recurrent legal problems, chronic alcohol use, poor problem-solving skills IMPRESSIONS: Major depressive disorder, with psychotic features Alcohol use disorder, severe dependence Legal problems nicotine dependence PLAN: -Patient is admitted under voluntary status to MHU for stabilization of psychiatric symptoms and safety. Patient has signed adult voluntary form and is placed in patient's chart. -Medications : Will start patient on Cymbalta 30 mg daily for mood/anxiety/pain, Seroquel 100 mg daily at bedtime for mood stabilization/insomnia/mood adjunct. -Ativan and Haldol PRN for agitation/aggression -Started thiamine, MVM for etoh use -WA protocol with Ativan PRN for ETOH withdrawal -Patient was counselled on substance abuse and desired to cut back on use however patient is not interested in rehab at this time. -Patient was informed of the risks, benefits and side effects of the medication -Internal Medicine consult to perform medical evaluation and physical. -NRT - nicotine patch -SW on board for discharge planning. Encourage patient to participate in groups to work on coping skills. 05/28/22 13:22
[2022-05-28 18:46] LABS: Chol/HDL Ratio 2.41 Ratio; LDL Cholesterol,Calculated 79.5 mg/dL (0.0-131.0)
[2022-05-28] MEDS: QUEtiapine 100 MG TAB PO SCH (20:51)
[2022-05-28] MEDS: haloperidoL 5 MG TAB PO PRN (22:52)
[2022-05-29 06:30] VITALS: BP 127/63; PULSE 77; RESP 17; TEMP 98.3
[2022-05-29] MEDS: FOLIC ACID 1 MG TAB PO SCH (08:45)
[2022-05-29] MEDS: MULTIVITAMINS, THERA 1 EACH TAB PO SCH (08:45)
[2022-05-29] MEDS: DULoxetine HCL 30 MG CAPSULE.DR PO SCH (08:45)
[2022-05-29] MEDS: THIAMINE 100 MG TAB PO SCH (08:45)
[2022-05-29] MEDS: NICOTINE GUM (POLACRILEX) 2 MG GUM BUCCAL PRN ×2 (08:46→15:10)
[2022-05-29] MEDS: NICOTINE 14MG/24HR PATCH TRANSDERM SCH (10:41)
--- NOTE | 2022-05-29 15:59 | P.PN ---
Subjective Progress Note Date: 05/29/22 Principal diagnosis: progress note 2021 He was seen in unit round today. He had a full Psyc H/D yesterday and was Seroquel and mirtabzepine. His presentaton consisted of long standing history of alohol use with [id number] Depression order. When he went through withdrawa l, he had impuslvie violent thoughts but stoppped to translating his impulsive thoughts into action. He did harbor suicidal ideation but today denied this has become pattern of his past. He did nto elabroate further on his incarcenation . From the note by , discontinuatin of his psyhcotorpic Rx broguht about relapse o fboth his alchool use and his mood changes. His mood consisted of depressive pheotype with anger attackes. However, bipolar depression would have to enter to the differential. He was cohrent in identifying the trigger. He was ill preppared to elaborate further and wanted to return home to his community. he was compliant with his Rx and did not voice any adverse events. MSE: hew was oriented coherent congruent with thought content. No labile affect. He endied any craving for alcohol and was not despodnent . No hopelessness. No perceptual disturbances of hallucinations no paranoid or grandiose delusons or ideas of reference. No suicidal or homicidal ideationis Cognition: oriented. fair insight or judgment Diagnosis: Alcohol use : moderate severity.in protracted withdrawal phase MDD. moderate severity. Rule out atypical bipolar depression personality disorder or PTSD Managemnet : Continue on curent Rx. Pt fulfils the criteria for inpatient admission . Collaborate with the treatment plan in discussing discharge plan by Sat or Objective - Vital Signs Vital signs: Vital Signs Temp 98.3 F 05/29/22 06:29 Pulse 77 05/29/22 06:29 Resp 17 05/29/22 06:29 BP 127/63 05/29/22 06:29 Pulse Ox 96 05/29/22 06:29 FiO2 - Labs CBC & Chem 7: 05/27/22 22:53 05/27/22 22:50 Labs: Abnormal Lab Results - Last 24 Hours (Table) 05/27/22 Range/Units 22:53 Triglycerides 158.00 H (0.00-149.00) mg/dL HDL Cholesterol 78.90 H (40.00-60.00) mg/dL
[2022-05-29] MEDS: LORazepam 1 MG TAB PO PRN (17:45)
[2022-05-29] MEDS: ACETAMINOPHEN TAB 325 MG TAB PO PRN (20:11)
[2022-05-29] MEDS: QUEtiapine 100 MG TAB PO SCH (20:12)
[2022-05-29] MEDS: haloperidoL 5 MG TAB PO PRN (20:12)
[2022-05-29 21:37] LABS: Appearance,Urine Clear (Clear); Bilirubin,Urine Negative (Negative); Blood,Urine Negative (Negative); Color,Urine Yellow; Glucose,Urine (UA) Negative (Negative); Ketones,Urine Negative (Negative); Leukocyte Esterase,Urine Negative (Negative); Nitrite,Urine Negative (Negative); PH, Urine 6.5 (5.0-8.0); Protein,Urine Negative (Negative); Specific Gravity,Urine 1.017 (1.001-1.035); Urobilinogen,Urine <2.0 mg/dL (<2.0)
[2022-05-30 02:34] LABS: Urine Alcohol Negative (Negative); Urine Barbiturate Negative (Negative); Urine Cocaine Negative (Negative); Urine Methadone Negative (Negative); Urine Opiates Negative (Negative); Urine Phencyclidine Negative (Negative)
[2022-05-30] MEDS: THIAMINE 100 MG TAB PO SCH (08:42)
[2022-05-30] MEDS: DULoxetine HCL 30 MG CAPSULE.DR PO SCH (08:42)
[2022-05-30] MEDS: MULTIVITAMINS, THERA 1 EACH TAB PO SCH (08:42)
[2022-05-30] MEDS: FOLIC ACID 1 MG TAB PO SCH (08:43)
[2022-05-30] MEDS: NICOTINE GUM (POLACRILEX) 2 MG GUM BUCCAL PRN (08:44)
[2022-05-30] MEDS: NICOTINE 14MG/24HR PATCH TRANSDERM SCH (10:31)
--- NOTE | 2022-05-30 12:59 | P.DS ---
Providers Date of admission: 05/27/22 15:31 Expected date of discharge: 05/30/22 Attending physician: Eugene Mantilla MD He was admitted under the care of Dr. Bergman : Full H/P was enered in the chart nyh history of Depression, Suicidal ideation and alcohol use . I assume his care on May and was seen on . In my progress note, I commented he went through the withdrawal from alcohol uneventfully with no D/T. His subjective weakness and evasive thought disturbances have largely resolved with no visual hallucinations. There has been no further disruptive behavior identifed. Regarding his BELLA, he admitted he endorsed Polysubstance dependence: he would spend excessive of his savings and income on "booze" as welll as cannabis and any substances he woulld have access. He found it difficult to adapt to release from his incarcernation of 7 yr total in the past. When he was in correction system he began his sobriety and attended various classes. However, soon after his release, he resumed his use of different subtances. The exent to which his prescribed Rx: Cymbalta 30 mg and quietapine 100 mg po qhs was uncertain. I attempted MET to engage him to accept treatment : IOP or residential treatment but he claimed extended family support sufficed. He did not have a full residence and stated he would live with his friend. Today he signed form to terminate treatment . I assessed him whether he would fulfil the criteria of involuntary admission. He did not hav suicidal or homici tyrone ideation. He would not be at imminent risk of physical impairment if he is released to the community at his choice. I reassed him and encoruaged him to continue to seek help as 1. visit psychiatric and addiction counselling to have his Rx monitored Cymbalta 30 mg and Quetiapine 100 mg po qhs. 2. Engage him to accept his relapse risk would be very high if he fails to work towards his recovery Discharge diagnosis 1. Primary diagnosis: MDD Masjro Depressive Disorder MDD> moderate severity, suicidal ideation has largeely resolved at the time of discharge comorbid BELLA: alcohol use disorder, histroy of cannabis use disorder. 2. Follow up at his own choice. He did not yet call [facility] for apppointment by time of discharge Rx given for hm x 30 days on Cymbalta and Queitapine . He was explained the use of Revia for alcohol use disorder Consults: 05/27/22 21:44 Consult Physician Stat Consulting Provider: [facility] Consult Reason/Comments: medical mangement Do you want consulting provider notified?: Yes Primary care physician: Stated None Patient Condition at Discharge: Stable Plan - Discharge Summary Discharge Rx Participant: No New Discharge Prescriptions: New QUEtiapine [SEROquel] 100 mg PO HS 30 Days tab DULoxetine HCL [Cymbalta] 30 mg PO DAILY 30 Days #30 cap Discharge Medication List DULoxetine HCL [Cymbalta] 30 mg PO DAILY 30 Days #30 cap 05/30/22 [Rx] QUEtiapine [SEROquel] 100 mg PO HS 30 Days tab 05/30/22 [Rx] Follow up Appointment(s)/Referral(s): None,Stated [Primary Care Provider] - 1-2 days Activity/Diet/Wound Care/Special Instructions: Avoid the use of street drugs and alcohol. Take all prescriptions as prescribed. When you are in need of refills on your medications, please contact your medical provider and/or outpatient psychiatrist to have this done. Please go to scheduled outpatient appointment for aftercare treatment. If symptoms return or become worse, call the crisis line at and/or go to the nearest emergency room for evaluation Discharge Disposition: HOME SELF-CARE
== END 2022-05-30 14:45 | disposition home or self-care (01) | DRG 897 ==
LOC: EC 20:17 → 3MHU 05-27 15:31
PROVIDERS: ADMIT Psychiatry & Neurology Psychiatry; ATTEND Psychiatry & Neurology Psychiatry
PROC: HZ2ZZZZ Detoxification Services for Substance Abuse Treatment (ICD-10-PCS; principal; 2022-05-27)
DX: F10.229 Alcohol dependence with intoxication, unspecified (principal); R45.851 Suicidal ideations; F33.1 Major depressive disorder, recurrent, moderate; Z20.822 Contact with and (suspected) exposure to COVID-19; Y90.7 Blood alcohol level of 200-239 mg/100 ml; D75.9 Disease of blood and blood-forming organs, unspecified; F15.10 Other stimulant abuse, uncomplicated; Z56.0 Unemployment, unspecified; F40.240 Claustrophobia; Z65.3 Problems related to other legal circumstances; Z71.41 Alcohol abuse counseling and surveillance of alcoholic; Z90.49 Acquired absence of other specified parts of digestive tract; Z86.718 Personal history of other venous thrombosis and embolism; G89.29 Other chronic pain; F17.210 Nicotine dependence, cigarettes, uncomplicated; Z71.6 Tobacco abuse counseling
CPT/HCPCS: 36415; 80053; 80061; 80306; 80320; 81003; 82075; 83036; 84443; 85025; 87635; 99285

== ENCOUNTER 2022-06-18 23:01 | Emergency (ER) | payer OTHER, MEDICAID ==
[2022-06-18 23:13] VITALS: PULSE 100; RESP 20; TEMP 97.8
--- NOTE | 2022-06-19 00:48 | US ---
EXAMINATION TYPE: US venous doppler duplex LE RT DATE OF EXAM: 06/19/2022 12:14 AM COMPARISON: 10/31/2018 CLINICAL HISTORY: pain, hx of DVT. Right leg pain x 1 day. Hx of DVT, not on blood thinners SIDE PERFORMED: Right TECHNIQUE: The lower extremity deep venous system is examined utilizing real time linear array sonog neela with graded compression, doppler sonography and color-flow sonography. VESSELS IMAGED: Common Femoral Vein Deep Femoral Vein Greater Saphenous Vein * Femoral Vein Popliteal Vein Small Saphenous Vein * Proximal Calf Veins (* superficial vessels) Right Leg: No evidence of DVT. Varicose veins seen behind knee are compressible and have normal bloo d flow. IMPRESSION: No sign of deep vein thrombosis in the right leg. There is clearing of the thrombus in th e popliteal vein compared to old exam.
[2022-06-19] MEDS ORDERED: KETOROLAC 15 MG/ML 1 ML VIAL IM STA (02:09)
--- NOTE | 2022-06-19 02:37 | ED ---
General Adult HPI - General Chief complaint: Extremity Problem,Nontraumatic Stated complaint: rt leg pain Time Seen by Provider: 06/19/22 02:00 Source: patient Mode of arrival: ambulatory Limitations: no limitations - History of Present Illness Initial comments: Patient is a 36-year-old male presenting with chief complaint of right leg pain. Patient also notes some swelling to the right leg. Patient has history of DVTs. He has stopped taking his warfarin because "I want to drink it and I can't do both at the same time". Pain and swelling has been ongoing for the last few days. No fever or chills. No redness or abrasions. No chest pain or difficulty breathing. No abdominal pain, nausea, vomiting. No numbness or tingling. No back pain. - Related Data Previous Rx's Medication Instructions Recorded DULoxetine HCL [Cymbalta] 30 mg PO DAILY 30 Days #30 cap 05/30/22 QUEtiapine [SEROquel] 100 mg PO HS 30 Days tab 05/30/22 Allergies Allergy/AdvReac Type Severity Reaction Status Date / Time No Known Allergies Allergy Verified 05/26/22 20:38 Review of Systems ROS Statement: Those systems with pertinent positive or pertinent negative responses have been documented in the HPI. ROS Other: All systems not noted in ROS Statement are negative. Past Medical History Past Medical History: Deep Vein Thrombosis (DVT) Additional Past Medical History / Comment(s): ETOH abuse, past withdrawls with tremors/nausea/seizure, chronic low back pain, recent R knee/leg pain, DVT R leg, Catogory 5 blood disorder. History of Any Multi-Drug Resistant Organisms: None Reported Past Surgical History: Cholecystectomy, Orthopedic Surgery Additional Past Surgical History / Comment(s): right knee tendon surgery Past Anesthesia/Blood Transfusion Reactions: Motion Sickness Additional Past Anesthesia/Blood Transfusion Reaction / Comment(s): Clausterphobia. Past Psychological History: Anxiety, Depression Smoking Status: Current every day smoker Past Alcohol Use History: Abuse Past Drug Use History: None Reported - Past Family History Father History Unknown: Yes Family Medical History: CVA/TIA Additional Family Medical History / Comment(s): Unable to obtain family history secondary altered mentation Mother Family Medical History: Congestive Heart Failure (CHF) General Exam Limitations: no limitations General appearance: alert, in no apparent distress Head exam: Present: atraumatic, normocephalic, normal inspection Eye exam: Present: normal appearance Neck exam: Present: normal inspection Respiratory exam: Present: normal lung sounds bilaterally. Absent: respiratory distress, wheezes, rales, rhonchi, stridor Cardiovascular Exam: Present: regular rate, normal rhythm, normal heart sounds. Absent: systolic murmur, diastolic murmur, rubs, gallop, clicks Extremities exam: Present: pedal edema (Right-sided) Neurological exam: Present: alert, oriented X3, CN II-XII intact Psychiatric exam: Present: normal affect, normal mood Skin exam: Present: warm, dry, intact, normal color. Absent: rash Course Vital Signs 06/18/22 23:10 Temperature 97.8 F Pulse Rate 100 Respiratory 20 Rate O2 Sat by Pulse 97 Oximetry Medical Decision Making - Medical Decision Making Was pt. sent in by a medical professional or institution (JOANA Duff, SCREENER AND BLENDER, urgent care, hospital, or jail...) When possible be specific @ -[No] Did you speak to anyone other than the patient for history (EMS, parent, family, police, friend...)? What history was obtained from this source @ -[No] Did you review nursing and triage notes (agree or disagree)? Why? @ -[I reviewed and agree with nursing and triage notes] Were old charts reviewed (outside hosp., previous admission, EMS record, old EKG, old radiological studies, urgent care reports/EKG's, jail records)? Report findings @ -[No old charts were reviewed] Differential Diagnosis (chest pain, altered mental status, abdominal pain women, abdominal pain men, vaginal bleeding, weakness, fever, dyspnea, syncope, headache, dizziness, GI bleed, back pain, seizure, CVA, palpatations, mental health)? @ -Differential includes DVT, lymphedema, gravity dependent edema EKG interpreted by me (3pts min.). @ -None X-rays interpreted by me (1pt min.). @ -[None done] CT interpreted by me (1pt min.). @ -[None done] U/S interpreted by me (1pt. min.). @ -No, radiologist report reviewed. Negative for DVT. What testing was considered but not performed or refused? (CT, X-rays, U/S, labs)? Why? @ -[None] What meds were considered but not given or refused? Why? @ -[None] Did you discuss the management of the patient with other professionals (professionals i.e. , PA, SCREENER AND BLENDER, lab, RT, psych nurse, social science professor, driver engineer, teacher, life science technical officer, case management social worker)? Give summary @ -[No] Was smoking cessation discussed for >3mins.? @ -[No] Was critical care preformed (if so, how long)? @ -[No] Were there social determinants of health that impacted care today? How? (Homelessness, low income, unemployed, alcoholism, drug addiction, transportation, low edu. Level, literacy, decrease access to med. care, usp, rehab)? @ -[No] Was there de-escalation of care discussed even if they declined (Discuss DNR or withdrawal of care, Hospice)? DNR status @ -[No] What co-morbidities impacted this encounter? (DM, HTN, Smoking, COPD, CAD, Cancer, CVA, ARF, Chemo, Hep., AIDS, mental health diagnosis, sleep apnea, morbid obesity)? @ -[None] Was patient admitted / discharged? Hospital course, mention meds given and route, prescriptions, significant lab abnormalities, going to OR and other pertinent info. @ -Patient is a 36-year-old male presenting with chief complaint of right leg pain and swelling. Symptoms have been ongoing for a few days. On physical examination there is some swelling to the leg, patient states that pain shoots up the leg. No erythema or breaks in the skin, no signs of cellulitis. Ultrasound shows no evidence of DVT. Patient is given pain medication educated on these findings. Discharged home. Follow-up with PCP. Report back to ER with any new or worsening symptoms. Discussed return parameters and answered all questions. Patient conveyed verbal understanding and agreed to the plan. I discussed this case in detail with my attending Dr. Marcelo Undiagnosed new problem with uncertain prognosis? @ -[No] Drug Therapy requiring intensive monitoring for toxicity (Heparin, Nitro, Insulin, Cardizem)? @ -[No] Were any procedures done? @ -[No] Diagnosis/symptom? @ -edema Acute, or Chronic, or Acute on Chronic? @ -Acute Uncomplicated (without systemic symptoms) or Complicated (systemic symptoms)? @ -Uncomplicated Side effects of treatment? @ -[No] Exacerbation, Progression, or Severe Exacerbation? @ -[No] Poses a threat to life or bodily function? How? (Chest pain, [place], [place], pneumonia, PE, COPD, DKA, ARF, appy, cholecystitis, CVA, Diverticulitis, Homicidal, Suicidal, threat to staff... and all critical care pts) @ -Unlikely Disposition Clinical Impression: Leg swelling Disposition: HOME SELF-CARE Condition: Good Instructions (If sedation given, give patient instructions): Leg Edema (ED) Additional Instructions: Follow-up with PCP, if you do not have a PCP some suggestions have been pr ovided. Report back to ER with any new or worsening symptoms. Is patient prescribed a controlled substance at d/c from ED?: No Referrals: None,Stated [Primary Care Provider] - 1-2 days Ayah Whyte MD [STAFF PHYSICIAN] - 1-2 days Gema Bailey MD [STAFF PHYSICIAN] - 1-2 days Time of Disposition: 02:37
== END 2022-06-19 02:54 | disposition home or self-care (01) ==
LOC: EC 23:01
DX: R22.41 Localized swelling, mass and lump, right lower limb (principal); Z86.718 Personal history of other venous thrombosis and embolism; F41.9 Anxiety disorder, unspecified; F32.A Depression, unspecified; F17.200 Nicotine dependence, unspecified, uncomplicated
CPT/HCPCS: 93971; 99283; 96372; J1885

== ENCOUNTER 2022-09-30 16:01 | Inpatient (IN) | payer MEDICAID, OTHER ==
--- NOTE | 2022-09-30 16:52 | ED ---
General Adult HPI - General Chief complaint: Psychiatric Symptoms Stated complaint: MENTAL HEALTH Time Seen by Provider: 09/30/22 16:06 Source: patient, RN notes reviewed, old records reviewed Mode of arrival: ambulatory Limitations: no limitations - History of Present Illness Initial comments: 37-year-old male presenting for mental health evaluation. Patient states he has been off his medications. He is requesting evaluation by the "psychiatrist". He denies suicide attempt but states he has had some suicidal ideation. He also admits to alcohol consumption today. No physical complaints. - Related Data Home Medications Medication Instructions Recorded Confirmed No Known Home Medications 09/30/22 09/30/22 Allergies Allergy/AdvReac Type Severity Reaction Status Date / Time No Known Allergies Allergy Verified 09/30/22 18:11 Review of Systems ROS Statement: Those systems with pertinent positive or pertinent negative responses have been documented in the HPI. ROS Other: All systems not noted in ROS Statement are negative. Past Medical History Past Medical History: Deep Vein Thrombosis (DVT) Additional Past Medical History / Comment(s): ETOH abuse, past withdrawls with tremors/nausea/seizure, chronic low back pain, recent R knee/leg pain, DVT R leg, Catogory 5 blood disorder. History of Any Multi-Drug Resistant Organisms: None Reported Past Surgical History: Cholecystectomy, Orthopedic Surgery Additional Past Surgical History / Comment(s): right knee tendon surgery Past Anesthesia/Blood Transfusion Reactions: Motion Sickness Additional Past Anesthesia/Blood Transfusion Reaction / Comment(s): David terphobia. Past Psychological History: Anxiety, Depression Smoking Status: Current every day smoker Past Alcohol Use History: Daily, Heavy Past Drug Use History: None Reported, Methamphetamine - Past Family History Father History Unknown: Yes Family Medical History: CVA/TIA Additional Family Medical History / Comment(s): Unable to obtain family history secondary altered mentation Mother Family Medical History: Congestive Heart Failure (CHF) General Exam Limitations: no limitations General appearance: alert, in no apparent distress, appears intoxicated Head exam: Present: atraumatic, normocephalic Eye exam: Present: normal appearance, PERRL Respiratory exam: Present: normal lung sounds bilaterally. Absent: respiratory distress Cardiovascular Exam: Present: regular rate, normal rhythm GI/Abdominal exam: Present: soft. Absent: distended, tenderness Extremities exam: Present: normal inspection Neurological exam: Present: alert, oriented X3, CN II-XII intact. Absent: motor sensory deficit Psychiatric exam: Present: flat affect, suicidal ideation Skin exam: Present: warm, dry, intact. Absent: cyanosis, diaphoretic Course Vital Signs 09/30/22 09/30/22 09/30/22 16:02 17:34 18:31 Temperature 97.7 F 98 F Pulse Rate 93 86 78 Respiratory 18 20 20 Rate Blood Pressure 134/86 150/68 160/78 O2 Sat by Pulse 99 98 98 Oximetry 09/30/22 20:47 Temperature Pulse Rate 101 H Respiratory 16 Rate Blood Pressure 135/80 O2 Sat by Pulse 94 L Oximetry - Reevaluation(s) Reevaluation #1: 09/30/22 2100 Cleared for EPS Medical Decision Making - Medical Decision Making Was pt. sent in by a medical professional or institution (, PA, TERMINAL OPERATIONS SUPERVISOR, urgent care, hospital, or long term...) When possible be specific @ -No Did you speak to anyone other than the patient for history (EMS, parent, family, police, friend...)? What history was obtained from this source @ -No Did you review nursing and triage notes (agree or disagree)? Why? @ -I reviewed and agree with nursing and triage notes Were old charts reviewed (outside hosp., previous admission, EMS record, old EKG, old radiological studies, urgent care reports/EKG's, long term records)? Report findings @ -I reviewed previous ER notes and previous psychiatric admissions Differential Diagnosis (chest pain, altered mental status, abdominal pain women, abdominal pain men, vaginal bleeding, weakness, fever, dyspnea, syncope, headache, dizziness, GI bleed, back pain, seizure, CVA, palpatations, mental health, musculoskeletal)? @ -Differential Mental Health Depression, anxiety, bipolar, psychosis, schizophrenia, borderline personality, situational depression, adjustment disorder, behavioral disorder, brain tumor, malingering, substance abuse, encephalopathy, medication reaction, dementia, hypothyroidism, degenerative neurologic disorder, lupus.... This is not meant to be all-inclusive list EKG interpreted by me (3pts min.). @ -As above X-rays interpreted by me (1pt min.). @ -None done CT interpreted by me (1pt min.). @ -None done U/S interpreted by me (1pt. min.). @ -None done What testing was considered but not performed or refused? (CT, X-rays, U/S, l abs)? Why? @ -None What meds were considered but not given or refused? Why? @ -None Did you discuss the management of the patient with other professionals (professionals i.e. , PA, TERMINAL OPERATIONS SUPERVISOR, lab, RT, psych nurse, social director, urgent care, teacher, special skills officer, gearcase assembler)? Give summary @ -Case discussed with the EPS nurse Was smoking cessation discussed for >3mins.? @ -No Was critical care preformed (if so, how long)? @ -No Were there social determinants of health that impacted care today? How? (Homelessness, low income, unemployed, alcoholism, drug addiction, transportation, low edu. Level, literacy, decrease access to med. care, snf, rehab)? @ -No Was there de-escalation of care discussed even if they declined (Discuss DNR or withdrawal of care, Hospice)? DNR status @ -No What co-morbidities impacted this encounter? (DM, HTN, Smoking, COPD, CAD, Cancer, CVA, ARF, Chemo, Hep., AIDS, mental health diagnosis, sleep apnea, morbid obesity)? @ -Bipolar depression Was patient admitted / discharged? Hospital course, mention meds given and route, prescriptions, significant lab abnormalities, going to OR and other pertinent info. @ -Patient evaluated by EPS and felt to require inpatient psychiatric evaluation and treatment. Undiagnosed new problem with uncertain prognosis? @ -No Drug Therapy requiring intensive monitoring for toxicity (Heparin, Nitro, Insulin, Cardizem)? @ -No Were any procedures done? @ -No Diagnosis/symptom? @ -Depression, acute psychosis Acute, or Chronic, or Acute on Chronic? @ -Acute - Lab Data Lab Results 09/30/22 Range/Units 16:15 Urine Opiates Screen Not Detected (NotDetected) Ur Oxycodone Screen Not Detected (NotDetected) Urine Methadone Screen Not Detected (NotDetected) Ur Propoxyphene Screen Not Detected (NotDetected) Ur Barbiturates Screen Not Detected (NotDetected) U Tricyclic Antidepress Not Detected (NotDetected) Ur Phencyclidine Scrn Not Detected (NotDetected) Ur Amphetamines Screen Not Detected (NotDetected) U Methamphetamines Scrn Not Detected (NotDetected) U Benzodiazepines Scrn Not Detected (NotDetected) Urine Cocaine Screen Not Detected (NotDetected) U Marijuana (THC) Screen Not Detected (NotDetected) Disposition Clinical Impression: Depression, Psychosis Disposition: ADMITTED IP TO THIS HOSP Condition: Stable Is patient prescribed a controlled substance at d/c from ED?: No Referrals: None,Stated [Primary Care Provider] - 1-2 days Time of Disposition: 22:08
[2022-09-30 19:23] LABS: Amphetamine Screen,Urine Not Detected (NotDetected); Barbiturate Screen,Urine Not Detected (NotDetected); Benzodiazepines Screen,Urine Not Detected (NotDetected); Cocaine Screen,Urine Not Detected (NotDetected); Methadone Screen, Urine Not Detected (NotDetected); Opiate Screen,Urine Not Detected (NotDetected); Oxycodone Screen, Urine Not Detected (NotDetected); Phencyclidine Screen,Urine Not Detected (NotDetected); Tricyclic Antidepressant,Urine Not Detected (NotDetected); Urn Cannabinoid Scrn Not Detected (NotDetected)
[2022-09-30] MEDS ORDERED: MAGNESIUM HYDROXIDE 2,400 MG/10 ML CUP PO PRN (23:29)
[2022-09-30] MEDS ORDERED: MAG HYDROX/AL HYDROX/SIMETH 30 ML CUP PO PRN (23:29)
--- NOTE | 2022-10-01 00:23 | P.PN ---
Progress Note - Text Progress Note Date: 10/01/22 notified of new admit, patient tired and sleeping , cant be interviewed at this time
[2022-10-01] MEDS: LORazepam 1 MG TAB PO PRN ×3 (00:30→12:01)
[2022-10-01] MEDS: OLANZapine 5 MG TAB PO PRN ×2 (06:19→20:23)
[2022-10-01] MEDS: MULTIVITAMINS, THERA 1 EACH TAB PO SCH (06:19)
[2022-10-01] MEDS: THIAMINE 100 MG TAB PO SCH (06:19)
[2022-10-01] MEDS: FOLIC ACID 1 MG TAB PO SCH (06:19)
[2022-10-01 08:36] LABS: Basophils # (A) 0.1 k/uL (0-0.2); Basophils % (A) 1 %; Eosinophils # (A) 0.1 k/uL (0-0.7); Eosinophils % (A) 1 %; HCT 39.2 % (39.0-53.0); HGB 13.6 gm/dL (13.0-17.5); Lymphocytes # (A) 1.3 k/uL (1.0-4.8); Lymphocytes % (A) 27 %; MCH 32.2 pg (25.0-35.0); MCHC 34.8 g/dL (31.0-37.0); MCV 92.7 fL (80.0-100.0); Mean Platelet Volume 7.2; Monocytes # (A) 0.4 k/uL (0-1.0); Monocytes % (A) 8 %; Neutrophils # (A) 2.8 k/uL (1.3-7.7); Neutrophils % (A) 61 %; Platelet Count 244 k/uL (150-450); RBC 4.23 m/uL (4.30-5.90); RDW 11.5 % (11.5-15.5); WBC 4.7 k/uL (3.8-10.6)
[2022-10-01 08:49] LABS: ALT 33 U/L (4-49); AST 36 U/L (17-59); African American GFR (CKD) >90 (>60 ml/min/1.73 sqM); Albumin 4.1 g/dL (3.5-5.0); Alkaline Phosphatase 58 U/L (38-126); Anion Gap 8 mmol/L; Blood Urea Nitrogen 12 mg/dL (9-20); Calcium 8.7 mg/dL (8.4-10.2); Carbon Dioxide 28 mmol/L (22-30); Chloride 102 mmol/L (98-107); Glucose 106 mg/dL (74-99); Non-African American GFR(CKD) >90 (>60 ml/min/1.73 sqM); Potassium 4.4 mmol/L (3.5-5.1); Sodium 138 mmol/L (137-145); Total Bilirubin 0.5 mg/dL (0.2-1.3); Total Protein 6.6 g/dL (6.3-8.2)
[2022-10-01] MEDS ORDERED: NICOTINE 21MG/24HR PATCH TRANSDERM SCH (09:00)
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
[2022-10-01] MEDS: NICOTINE GUM (POLACRILEX) 2 MG GUM BUCCAL PRN ×3 (12:01→20:23)
[2022-10-01 15:53] LABS: Chol/HDL Ratio 2.33 Ratio; LDL Cholesterol,Calculated 26.8 mg/dL (0.0-131.0)
[2022-10-01] MEDS: LORazepam 2 MG/ML INJ IM PRN ×2 (17:05→22:22)
[2022-10-01] MEDS ORDERED: QUEtiapine 200 MG TAB PO SCH (21:00)
--- NOTE | 2022-10-02 03:54 | P.CONS ---
History of Present Illness - Reason for Consult Consult date: 10/02/22 - History of Present Illness The patient is a 37-year-old male with a PMH of alcohol abuse, right lower extremity DVT, who presented to the emergency room for depression and suicidal ideation. The patient was admitted to the mental health unit where he was seen and evaluated. Patient reports that he was diagnosed with a right lower extremity DVT 3 years ago and has not taken any anticoagulants for the last one year. Patient reports that that was the only episode of DVT that he experienced. He reports drinking a pint of hard liquor daily. Did report mild right lower extremity pain over the past 1 week. Denies experiencing chest discomfort or shortness of breath. Also denied nausea, vomiting, abdominal pain, diarrhea. Review of systems: Pertinent positives and negatives as discussed in HPI, a complete review of systems was performed and all other systems are negative. Physical examination: General: non toxic, no distress, appears at stated age, normal weight Derm: no unusual rashes/lesions, no unusual ecchymoses, warm, dry Head: atraumatic, normocephalic, symmetric Eyes: EOMI, no lid lag, anicteric sclera ENT: Nose and ears atraumatic, no thrush, no pharyngeal erythema Neck: trachea midline, supple Mouth: no lip lesion, mucus membranes moist Cardiovascular: S1S2 reg, no murmur, no edema Lungs: CTA bilateral, no rhonchi, no rales , no accessory muscle use Abdominal: soft, nontender to palpation, no guarding Ext: no gross muscle atrophy, no contractures, Neuro: No gross focal neuro deficits noted Psych: Alert, oriented, appropriate affect Assessment: Depression and suicidal ideation Hx of RLE DVT Imaging: Right lower extremity venous Doppler was negative for DVT Data Review: Laboratory evaluation was reviewed and reveals a WBC count of 4.7, hemoglobin 13.6, sodium 138, potassium 4.4, glucose 106, triglycerides 206 Plan: Patient is currently on anticoagulants Defer management of depression and suicidal ideation a primary psychiatry service Thank you for allowing us to participate in the care of this patient. We will follow peripherally. Do not hesitate to contact us with questions. Someone can be reached from the [facility] [place] hospitalist group at all hours of the day at [phone]. Past Medical History Past Medical History: Deep Vein Thrombosis (DVT) Additional Past Medical History / Comment(s): ETOH abuse, past withdrawls with tremors/nausea/seizure, chronic low back pain, recent R knee/leg pain, DVT R leg, Catogory 5 blood disorder. History of Any Multi-Drug Resistant Organisms: None Reported Past Surgical History: Cholecystectomy, Orthopedic Surgery Additional Past Surgical History / Comment(s): right knee tendon surgery Past Anesthesia/Blood Transfusion Reactions: Motion Sickness Additional Past Anesthesia/Blood Transfusion Reaction / Comm: Clausterphobia. Smoking Status: Current every day smoker - Past Family History Father History Unknown: Yes Family Medical History: CVA/TIA Additional Family Medical History / Comment(s): Unable to obtain family history secondary altered mentation Mother Family Medical History: Congestive Heart Failure (CHF) Medications and Allergies Home Medications Medication Instructions Recorded Confirmed Type No Known Home Medications 09/30/22 09/30/22 History Allergies Allergy/AdvReac Type Severity Reaction Status Date / Time No Known Allergies Allergy Verified 09/30/22 18:11 Results CBC & Chem 7: 10/01/22 08:01 10/01/22 08:01 Labs: Abnormal Lab Results - Last 24 Hours (Table) 10/01/22 10/01/22 Range/Units 08:01 08:01 RBC 4.23 L (4.30-5.90) m/uL Glucose 106 H (74-99) mg/dL Triglycerides 206.00 H (0.00-149.00) mg/dL VLDL Cholesterol, Calc 41.20 H (5.00-40.00) mg/dL
[2022-10-02] MEDS: FOLIC ACID 1 MG TAB PO SCH (07:58)
[2022-10-02] MEDS: NICOTINE GUM (POLACRILEX) 2 MG GUM BUCCAL PRN ×3 (07:58→21:23)
[2022-10-02] MEDS: THIAMINE 100 MG TAB PO SCH (07:58)
[2022-10-02] MEDS: LORazepam 1 MG TAB PO PRN ×2 (07:58→18:43)
[2022-10-02] MEDS: MULTIVITAMINS, THERA 1 EACH TAB PO SCH (07:58)
[2022-10-02] MEDS: OLANZapine 5 MG TAB PO PRN (09:57)
--- NOTE | 2022-10-02 10:50 | US ---
EXAMINATION TYPE: US venous doppler duplex LE RT DATE OF EXAM: 10/02/2022 9:47 AM COMPARISON: 06/18/2022 CLINICAL INDICATION: 37-year-old male with history of RLE pain, hx of DVT; Patient states he has pain and hx DVT. No redness or swelling. Not on blood thinners. SIDE PERFORMED: Right TECHNIQUE: The lower extremity deep venous system is examined utilizing real time linear array sonog neela with graded compression, doppler sonography and color-flow sonography. FINDINGS: VESSELS IMAGED: Common Femoral Vein Deep Femoral Vein Greater Saphenous Vein * Femoral Vein Popliteal Vein Small Saphenous Vein * Proximal Calf Veins Posterior tibial veins (* superficial vessels) Right Leg: Negative for DVT IMPRESSION: No evidence for DVT within the right lower extremity.
[2022-10-02] MEDS: LORazepam 2 MG/ML INJ IM PRN (12:14)
--- NOTE | 2022-10-02 12:54 | P.PN ---
Progress Note - Text Progress Note Date: 10/02/22 S&O: Patient was seen in rounds. He said he slept better but did not sleep the whole night last night. He was counseled about. He again asked for Neurontin Ativan and Cymbalta. He was again counseled that he does not meet the criteria for bipolar disorder and was given Seroquel only to help him sleep and possibly for mood stabilization. He was again counseled that Seroquel is used for mood stabilization it is an antidepressant, is used for schizophrenia and also helps to sleep better at night. With this explanation he was satisfied but he asked if his Seroquel could be increased to 300 mg. It was agreed to change it. He wanted Ativan for anxiety and he was advised that he has a when necessary Zyprexa ordered and he can ask for. He agreed with this. This is a white ambulatory male with good hygiene. He is well groomed and has felt trimmed brown and mustache. Does not show any psychomotor agitation or retardation. Speech is spontaneous relevant and goal-directed. No pressured speech or flight of ideas. Mood is euthymic and affect is appropriate. Continues to deny suicide and homicide thoughts. Sensorium is clear. A&P: Increase Seroquel to 300 mg at bedtime continue groups and other therapies.
[2022-10-02] MEDS: QUEtiapine 100 MG TAB PO SCH (20:18)
[2022-10-02] MEDS: ACETAMINOPHEN TAB 325 MG TAB PO PRN (21:22)
[2022-10-03] MEDS: LORazepam 2 MG/ML INJ IM PRN ×2 (00:04→22:04)
[2022-10-03] MEDS: LORazepam 1 MG TAB PO PRN ×3 (05:36→19:23)
[2022-10-03] MEDS: MULTIVITAMINS, THERA 1 EACH TAB PO SCH (08:44)
[2022-10-03] MEDS: FOLIC ACID 1 MG TAB PO SCH (08:44)
[2022-10-03] MEDS: THIAMINE 100 MG TAB PO SCH (08:44)
[2022-10-03] MEDS: NICOTINE GUM (POLACRILEX) 2 MG GUM BUCCAL PRN ×3 (11:54→20:36)
[2022-10-03] MEDS: ACETAMINOPHEN TAB 325 MG TAB PO PRN ×2 (11:54→17:07)
--- NOTE | 2022-10-03 12:08 | P.PN ---
Progress Note - Text Progress Note Date: 10/03/22 S&O: Patient was seen in rounds. He was laying down in his bed when he was called. He usually stays by himself or in bed and has not been attending groups. No behavioral issues. He said he slept little better last night on 300 mg of Seroquel. He continues to ask for more medication including Neurontin Depakote and antidepressants. He was again counseled that Seroquel is both a mood stabilizer and an antidepressant and that he does not meet the criteria for the diagnosis of bipolar disorder. He said he will work with his [facility] doctor about getting all the medicines he wants. He was advised we can probably discharge him tomorrow or day after tomorrow depending on the treatment team decision. He was satisfied with this. He said he will be going back to [facility] after discharge. He does not have any other complaints or concerns or request. This is a right ambulatory male with good hygiene. He just got up from his bed and his hair is not well combed. He is also rather sleepy. No psychomotor agitation or retardation. Speech is spontaneous and goal-directed. Mood is somewhat sleepy and affect is appropriate. Denies hallucinations, delusional thinking, suicide and homicide thoughts. Sensorium is clear. A&P: Continue Seroquel 300 mg at bedtime and he is encouraged to attend groups. Consider discharging him tomorrow if the treatment team agrees.
[2022-10-03] MEDS: QUEtiapine 100 MG TAB PO SCH (20:35)
[2022-10-04 06:56] VITALS: BP 132/63; PULSE 93; RESP 18; TEMP 98
[2022-10-04] MEDS: ACETAMINOPHEN TAB 325 MG TAB PO PRN ×2 (09:00→13:34)
[2022-10-04] MEDS: FOLIC ACID 1 MG TAB PO SCH (09:01)
[2022-10-04] MEDS: THIAMINE 100 MG TAB PO SCH (09:01)
[2022-10-04] MEDS: MULTIVITAMINS, THERA 1 EACH TAB PO SCH (09:01)
[2022-10-04] MEDS: LORazepam 1 MG TAB PO PRN (09:26)
[2022-10-04] MEDS: NICOTINE GUM (POLACRILEX) 2 MG GUM BUCCAL PRN (09:28)
--- NOTE | 2022-10-04 12:31 | P.DS ---
Providers Date of admission: 09/30/22 23:27 Expected date of discharge: 10/04/22 Attending physician: Jeovanny Cain MD Consults: 09/30/22 23:29 Consult Physician Routine Consulting Provider: Eli Escalante Consult Reason/Comments: MEDICAL H&P Do you want consulting provider notified?: Yes Primary care physician: Stated None - Discharge Diagnosis(es) (1) Adjustment disorder with depressed mood Current Visit: Yes Status: Acute Priority: High (2) Alcohol dependence Current Visit: Yes Status: Chronic Priority: Medium (3) Alcohol dependence Current Visit: Yes Status: Chronic Priority: Medium (4) Sedative hypnotic or anxiolytic dependence Current Visit: Yes Status: Chronic Priority: Medium (5) Sedative hypnotic or anxiolytic dependence Current Visit: Yes Status: Chronic Priority: Medium (6) Adult antisocial behavior Current Visit: Yes Status: Chronic Priority: Medium Hospital Course: Patient had his psychiatric H&P done by me on 10/01/2022 and general physical examination done by Dr Eli Escalante on 10/02/2022. After his psychiatric H&P he was started on Seroquel 200 mg at bedtime for mood. Patient was asking for several medications including narcotics sedative hypnotics and antidepressants. He was counseled about all these things and was advised that we cannot prescribe narcotics or sedative hypnotics for people who have drug and alcohol issues. He agreed. He was also counseled that he does not meet the criteria for bipolar disorder and I could not prescribe him on the medicines he was asking for. He agreed with this also. He attended groups very rarely and stayed mostly in his room and did not socialize much. However he did not have any violent or self- destructive behavior. His condition was discussed by the treatment team this morning and it was agreed to discharge him. He will seek outpatient counseling regarding coping skills and alcohol/substance abuse. Mental status examination: This is a well-built well nourished ambulatory white male with good hygiene. He is cooperative and calm. He does not show any psychomotor agitation or retardation. His speech is spontaneous and goal- directed. His mood is euthymic and affect is appropriate. He denies hallucinations delusional thinking suicide and homicide thoughts. His sensorium is clear. Assessment: Please see mental status examination under hospital course about. Health Concerns: History of right lower extremity DVT. Pertinent Studies: Doppler studies of left lower limbs veins was done on 10/02/2022 and it was n egative for clots. Procedures: Doppler study of left lower extremity veins. Plan - Discharge Summary Discharge Rx Participant: Yes New Discharge Prescriptions: New Magnesium Hydroxide [Milk of Magnesia Concentrate] 2,400 mg PO DAILY PRN ml PRN Reason: Constipation QUEtiapine [SEROquel] 300 mg PO HS 30 Days #30 tab Mag Hydrox/Al Hydrox/Simeth [Maalox] 30 ml PO Q4HR PRN ml PRN Reason: Gi Upset Acetaminophen Tab [Tylenol] 650 mg PO Q4HR PRN tab PRN Reason: Pain/Discomfort Discharge Medication List Acetaminophen Tab [Tylenol] 650 mg PO Q4HR PRN tab 10/04/22 [Rx] Mag Hydrox/Al Hydrox/Simeth [Maalox] 30 ml PO Q4HR PRN ml 10/04/22 [Rx] Magnesium Hydroxide [Milk of Magnesia Concentrate] 2,400 mg PO DAILY PRN ml 10/04/22 [Rx] QUEtiapine [SEROquel] 300 mg PO HS 30 Days #30 tab 10/04/22 [Rx] Follow up Appointment(s)/Referral(s): [facility] [Outside] - 10/03/22 9:00 am (10/03/2022 9:00AM - 10:00AM with KIM ELLSWORTH 10/16/2022 10:00AM - 11:00AM with KALPESH ANAYA) None,Stated [Primary Care Provider] - 1-2 days Activity/Diet/Wound Care/Special Instructions: Avoid the use of street drugs and alcohol. Take all medications as prescribed. When you are in need of refills on your medications, please contact your medical provider and/or outpatient psychiatrist to have this done. Please go to scheduled outpatient appointments for aftercare treatment. If symptoms return or become worse, call the crisis line at and/or go to the nearest emergency room for evaluation.
== END 2022-10-04 14:00 | disposition home or self-care (01) | DRG 754 ==
LOC: EC 16:01 → 3MHU 23:27
PROVIDERS: ADMIT Psychiatry & Neurology Psychiatry; ATTEND Psychiatry & Neurology Psychiatry
DX: F43.21 Adjustment disorder with depressed mood (principal); F13.20 Sedative, hypnotic or anxiolytic dependence, uncomplicated; R45.851 Suicidal ideations; F10.20 Alcohol dependence, uncomplicated; F14.11 Cocaine abuse, in remission; R45.850 Homicidal ideations; Z20.822 Contact with and (suspected) exposure to COVID-19; M54.50 Low back pain, unspecified; M79.604 Pain in right leg; M25.561 Pain in right knee; R10.9 Unspecified abdominal pain; D75.89 Other specified diseases of blood and blood-forming organs; F17.210 Nicotine dependence, cigarettes, uncomplicated; Z72.811 Adult antisocial behavior; Z86.718 Personal history of other venous thrombosis and embolism; Z56.0 Unemployment, unspecified; Z65.3 Problems related to other legal circumstances; Z71.6 Tobacco abuse counseling; Z71.41 Alcohol abuse counseling and surveillance of alcoholic; Z71.51 Drug abuse counseling and surveillance of drug abuser; Z81.8 Family history of other mental and behavioral disorders
CPT/HCPCS: 80053; 80061; 80306; 82075; 84443; 85025; 87636; 99285

== ENCOUNTER 2022-12-30 01:12 | Emergency (ER) | payer OTHER ==
[2022-12-30 01:20] VITALS: RESP 18
--- NOTE | 2022-12-30 01:30 | ED ---
General Adult HPI - General Chief complaint: Chest Pain Stated complaint: Chest Pain Time Seen by Provider: 12/30/22 01:17 Source: patient, EMS, RN notes reviewed, old records reviewed Mode of arrival: EMS Limitations: altered mental status - History of Present Illness Initial comments: 37-year-old male presenting with alcohol intoxication. Patient does admit to heavy alcohol consumption. He states he had developed a central chest discomfort which was transient and is resolved. He denies vomiting. Denies diaphoresis. Denies any prior cardiac history. - Related Data Previous Rx's Medication Instructions Recorded Acetaminophen Tab [Tylenol] 650 mg PO Q4HR PRN tab 10/04/22 Mag Hydrox/Al Hydrox/Simeth 30 ml PO Q4HR PRN ml 10/04/22 [Maalox] Magnesium Hydroxide [Milk of 2,400 mg PO DAILY PRN ml 10/04/22 Magnesia Concentrate] QUEtiapine [SEROquel] 300 mg PO HS 30 Days #30 tab 10/04/22 Allergies Allergy/AdvReac Type Severity Reaction Status Date / Time No Known Allergies Allergy Verified 09/30/22 18:11 Review of Systems ROS Statement: Those systems with pertinent positive or pertinent negative responses have been documented in the HPI. ROS Other: All systems not noted in ROS Statement are negative. Past Medical History Past Medical History: Deep Vein Thrombosis (DVT) Additional Past Medical History / Comment(s): ETOH abuse, past withdrawls with tremors/nausea/seizure, chronic low back pain, recent R knee/leg pain, DVT R leg, Catogory 5 blood disorder. History of Any Multi-Drug Resistant Organisms: None Reported Past Surgical History: Cholecystectomy, Orthopedic Surgery Additional Past Surgical History / Comment(s): right knee tendon surgery Past Anesthesia/Blood Transfusion Reactions: Motion Sickness Additional Past Anesthesia/Blood Transfusion Reaction / Comment(s): C lausterphobia. Past Psychological History: Anxiety, Bipolar, Depression Smoking Status: Current every day smoker - Past Family History Father History Unknown: Yes Family Medical History: CVA/TIA Additional Family Medical History / Comment(s): Unable to obtain family history secondary altered mentation Mother Family Medical History: Congestive Heart Failure (CHF) General Exam Limitations: altered mental status General appearance: alert, appears intoxicated Head exam: Present: atraumatic, normocephalic Eye exam: Present: normal appearance, PERRL ENT exam: Present: normal exam Neck exam: Present: normal inspection. Absent: tenderness Respiratory exam: Present: normal lung sounds bilaterally. Absent: respiratory distress, wheezes Cardiovascular Exam: Present: regular rate, normal rhythm GI/Abdominal exam: Present: soft. Absent: distended, tenderness Extremities exam: Present: normal inspection, normal capillary refill. Absent: pedal edema Neurological exam: Present: alert, oriented X3 Psychiatric exam: Absent: homicidal ideation, suicidal ideation Skin exam: Present: warm, dry, intact Course Vital Signs 12/30/22 01:16 Temperature 97.7 F Pulse Rate 96 Respiratory 18 Rate Blood Pressure 137/88 O2 Sat by Pulse 97 Oximetry Medical Decision Making - Medical Decision Making Was pt. sent in by a medical professional or institution (, PA, POWER SHOVEL ENGINEER, urgent care, hospital, or shelter...) When possible be specific @ -No Did you speak to anyone other than the patient for history (EMS, parent, family, police, friend...)? What history was obtained from this source @ -No Did you review nursing and triage notes (agree or disagree)? Why? @ -I reviewed and agree with nursing and triage notes Were old charts reviewed (outside hosp., previous admission, EMS record, old EKG, old radiological studies, urgent care reports/EKG's, shelter records)? Report findings @ -No old charts were reviewed Differential Diagnosis (chest pain, altered mental status, abdominal pain women, abdominal pain men, vaginal bleeding, weakness, fever, dyspnea, syncope, headache, dizziness, GI bleed, back pain, seizure, CVA, palpatations, mental health, musculoskeletal)? @ -[Differential Mental Health Depression, anxiety, bipolar, psychosis, schizophrenia, borderline personality, situational depression, adjustment disorder, behavioral disorder, brain tumor, m alingering, substance abuse, encephalopathy, medication reaction, alcohol intoxication This is not meant to be all-inclusive list EKG interpreted by me (3pts min.). @ -Sinus rhythm voltage criteria for LVH, rate of 97, [place] interval 144, QRS duration 101, QTC 4:15, no ST segment elevation. X-rays interpreted by me (1pt min.). @ -None done CT interpreted by me (1pt min.). @ -None done U/S interpreted by me (1pt. min.). @ -None done What testing was considered but not performed or refused? (CT, X-rays, U/S, labs)? Why? @ -None What meds were considered but not given or refused? Why? @ -None Did you discuss the management of the patient with other professionals (professionals i.e. , PA, POWER SHOVEL ENGINEER, lab, RT, psych nurse, hospice social worker, striker off, teacher, transport corps officer, therapeutic case manager)? Give summary @ -No Was smoking cessation discussed for >3mins.? @ -No Was critical care preformed (if so, how long)? @ -No Were there social determinants of health that impacted care today? How? (Homelessness, low income, unemployed, alcoholism, drug addiction, transportation, low edu. Level, literacy, decrease access to med. care, senior care, rehab)? @ -No Was there de-escalation of care discussed even if they declined (Discuss DNR or withdrawal of care, Hospice)? DNR status @ -No What co-morbidities impacted this encounter? (DM, HTN, Smoking, COPD, CAD, Cancer, CVA, ARF, Chemo, Hep., AIDS, mental health diagnosis, sleep apnea, morbid obesity)? @ -None Was patient admitted / discharged? Hospital course, mention meds given and route, prescriptions, significant lab abnormalities, going to OR and other pertinent info. @ -[Patient observed in the emergency department, awaiting sobriety Undiagnosed new problem with uncertain prognosis? @ -No Drug Therapy requiring intensive monitoring for toxicity (Heparin, Nitro, Insulin, Cardizem)? @ -No Were any procedures done? @ -No Diagnosis/symptom? @ -[Alcohol intoxication Acute, or Chronic, or Acute on Chronic? @ -[Chronic Uncomplicated (without systemic symptoms) or Complicated (systemic symptoms)? @ -default Side effects of treatment? @ -No Exacerbation, Progression, or Severe Exacerbation? @ -No Poses a threat to life or bodily function? How? (Chest pain, [place], [place], pneumonia, PE, COPD, DKA, ARF, appy, cholecystitis, CVA, Diverticulitis, Homicidal, Suicidal, threat to staff... and all critical care pts) @ -[Yes, alcohol abuse Disposition Clinical Impression: Alcohol use disorder, Homeless, Alcohol dependence Disposition: HOME SELF-CARE Condition: Fair Instructions (If sedation given, give patient instructions): Abuse of Alcohol (ED), Alcohol Intoxication (ED) Is patient prescribed a controlled substance at d/c from ED?: No Referrals: None,Stated [Primary Care Provider] - 1-2 days
--- NOTE | 2022-12-30 02:46 | XR ---
EXAM: XR Chest, 2 Views CLINICAL HISTORY: XR Reason: CP TECHNIQUE: Frontal and lateral views of the chest. COMPARISON: No relevant prior studies available. FINDINGS: Lungs: Unremarkable. No consolidation. Pleural space: Unremarkable. No pneumothorax. Heart: Unremarkable. No cardiomegaly. Mediastinum: Unremarkable. Bones/joints: Unremarkable. IMPRESSION: Normal chest x-rays.
[2022-12-30 09:53] VITALS: BP 154/100; PULSE 100; TEMP 98
== END 2022-12-30 09:52 | disposition home or self-care (01) ==
LOC: EC 01:12
DX: F10.229 Alcohol dependence with intoxication, unspecified (principal); Z59.00 Homelessness unspecified; F17.200 Nicotine dependence, unspecified, uncomplicated; Z86.59 Personal history of other mental and behavioral disorders
CPT/HCPCS: 71046; 93005; 99285

== ENCOUNTER 2023-01-01 15:46 | Emergency (ER) | payer OTHER ==
[2023-01-01] MEDS ORDERED: SODIUM CHLORIDE 0.9% 2,000 ML IV ONE (16:25)
--- NOTE | 2023-01-01 16:30 | ED ---
General Adult HPI - General Chief complaint: Alcohol Stated complaint: ETOH Time Seen by Provider: 01/01/23 16:00 Source: patient, EMS, RN notes reviewed, old records reviewed Mode of arrival: EMS - History of Present Illness Initial comments: This is a 37-year-old male who was brought into the emergency department by EMS secondary to the fact he was found outside a liquor store with significant decreased level of consciousness. Patient denies suicidal or homicidal ideations. Patient denies any physical complaints today. Patient states that the reason he is here is he wants to get something to eat and eventually follow-up at [facility]. Patient won't tell me why he wants to follow [facility] she appears very intoxicated. No further history is available at this time - Related Data Previous Rx's Medication Instructions Recorded Acetaminophen Tab [Tylenol] 650 mg PO Q4HR PRN tab 10/04/22 Mag Hydrox/Al Hydrox/Simeth 30 ml PO Q4HR PRN ml 10/04/22 [Maalox] Magnesium Hydroxide [Milk of 2,400 mg PO DAILY PRN ml 10/04/22 Magnesia Concentrate] QUEtiapine [SEROquel] 300 mg PO HS 30 Days #30 tab 10/04/22 Allergies Allergy/AdvReac Type Severity Reaction Status Date / Time No Known Allergies Allergy Verified 01/01/23 15:51 Review of Systems ROS Statement: Those systems with pertinent positive or pertinent negative responses have been documented in the HPI. ROS Other: All systems not noted in ROS Statement are negative. Past Medical History Past Medical History: Deep Vein Thrombosis (DVT) Additional Past Medical History / Comment(s): ETOH abuse, past withdrawls with tremors/nausea/seizure, chronic low back pain, recent R knee/leg pain, DVT R leg, Catogory 5 blood disorder. History of Any Multi-Drug Resistant Organisms: None Reported Past Surgical History: Cholecystectomy, Orthopedic Surgery Additional Past Surgical History / Comment(s): right knee tendon surgery Past Anesthesia/Blood Transfusion Reactions: Motion Sickness Additional Past Anesthesia/Blood Transfusion Reaction / Comment(s): Clausterphobia. Past Psychological History: Anxiety, Bipolar, Depression Smoking Status: Current every day smoker - Past Family History Father History Unknown: Yes Family Medical History: CVA/TIA Additional Family Medical History / Comment(s): Unable to obtain family history secondary altered mentation Mother Family Medical History: Congestive Heart Failure (CHF) General Exam - General Exam Comments Initial Comments: GENERAL: Patient is well-developed and well-nourished. Patient is nontoxic and well- hydrated and is in no acute distress. Patient appears very intoxicated ENT: Neck is soft and supple. No significant lymphadenopathy is noted. Oropharynx is clear. Moist mucous membranes. Neck has full range of motion without eliciting any pain. EYES: The sclera were anicteric and conjunctiva were pink and moist. Extraocular movements were intact and pupils were equal round and reactive to light. Eyelids were unremarkable. PULMONARY: Unlabored respirations. Good breath sounds bilaterally. No audible rales rhonchi or wheezing was noted. CARDIOVASCULAR: There is a regular rate and rhythm without any murmurs gallops or rubs. ABDOMEN: Soft and nontender with normal bowel sounds. SKIN: Skin is clear with no lesions or rashes and otherwise unremarkable. NEUROLOGIC: Patient is alert and oriented x3. Cranial nerves II through XII are grossly intact. Motor and sensory are also intact. Normal speech, volume and content. Symmetrical smile. MUSCULOSKELETAL: Normal extremities with adequate strength and full range of motion. LYMPHATICS: No significant lymphadenopathy is noted PSYCHIATRIC: Difficult to assess psychiatrically because he is intoxicated. Patient denies suicidal homicidal ideations Course Vital Signs 01/01/23 01/01/23 15:46 18:00 Temperature 98.8 F 97.8 F Pulse Rate 99 97 Respiratory 18 18 Rate Blood Pressure 125/75 135/82 O2 Sat by Pulse 97 99 Oximetry Medical Decision Making - Medical Decision Making Was pt. sent in by a medical professional or institution (, PA, SOLUTIONS DEVELOPMENT ANALYST, urgent care, hospital, or intermediate...) When possible be specific @ -No Did you speak to anyone other than the patient for history (EMS, parent, family, police, friend...)? What history was obtained from this source @ -No Did you review nursing and triage notes (agree or disagree)? Why? @ -I reviewed and agree with nursing and triage notes Were old charts reviewed (outside hosp., previous admission, EMS record, old EKG, old radiological studies, urgent care reports/EKG's, intermediate records)? Report findings @ -No old charts were reviewed Differential Diagnosis (chest pain, altered mental status, abdominal pain women, abdominal pain men, vaginal bleeding, weakness, fever, dyspnea, syncope, headache, dizziness, GI bleed, back pain, seizure, CVA, palpatations, mental health, musculoskeletal)? @ -Altered mental status EKG interpreted by me (3pts min.). @ -As above X-rays interpreted by me (1pt min.). @ -None done CT interpreted by me (1pt min.). @ -CT of the brain shows no acute abnormality U/S interpreted by me (1pt. min.). @ -None done What testing was considered but not performed or refused? (CT, X-rays, U/S, labs)? Why? @ -None What meds were considered but not given or refused? Why? @ -None Did you discuss the management of the patient with other professionals (professionals i.e. , PA, SOLUTIONS DEVELOPMENT ANALYST, lab, RT, psych nurse, social insurance analyst, wood web weaving machine operator, teacher, mounted police officer, patient case manager)? Give summary @ -No Was smoking cessation discussed for >3mins.? @ -No Was critical care preformed (if so, how long)? @ -No Were there social determinants of health that impacted care today? How? (Homelessness, low income, unemployed, alcoholism, drug addiction, transportation, low edu. Level, literacy, decrease access to med. care, long term, rehab)? @ -No Was there de-escalation of care discussed even if they declined (Discuss DNR or withdrawal of care, Hospice)? DNR status @ -No What co-morbidities impacted this encounter? (DM, HTN, Smoking, COPD, CAD, Cancer, CVA, ARF, Chemo, Hep., AIDS, mental health diagnosis, sleep apnea, morbid obesity)? @ -None Was patient admitted / discharged? Hospital course, mention meds given and rout e, prescriptions, significant lab abnormalities, going to OR and other pertinent info. @ -I went back into the room to discuss results of the testing with the patient he was alert he was oriented he was ambulatory without problem. Patient's alcohol was below the legal limit. Patient wanted to go home patient will be discharged home and told to stop drinking or go to rehab Undiagnosed new problem with uncertain prognosis? @ -No Drug Therapy requiring intensive monitoring for toxicity (Heparin, Nitro, Insulin, Cardizem)? @ -No Were any procedures done? @ -No Diagnosis/symptom? @ -Alcohol Intoxication Acute, or Chronic, or Acute on Chronic? @ -Acute Uncomplicated (without systemic symptoms) or Complicated (systemic symptoms)? @ -Uncomplicated Side effects of treatment? @ -No Exacerbation, Progression, or Severe Exacerbation? @ -No Poses a threat to life or bodily function? How? (Chest pain, [place], [place], pneumonia, PE, COPD, DKA, ARF, appy, cholecystitis, CVA, Diverticulitis, Homicidal, Suicidal, threat to staff... and all critical care pts) @ -No - Lab Data Result diagrams: 01/01/23 16:41 01/01/23 16:41 Lab Results 01/01/23 01/01/23 Range/Units 16:41 16:41 WBC 11.2 H (3.8-10.6) k/uL RBC 4.62 (4.30-5.90) m/uL Hgb 15.3 (13.0-17.5) gm/dL Hct 42.3 (39.0-53.0) % MCV 91.5 (80.0-100.0) fL MCH 33.2 (25.0-35.0) pg MCHC 36.3 (31.0-37.0) g/dL RDW 12.9 (11.5-15.5) % Plt Count 215 (150-450) k/uL MPV 8.3 Neutrophils % 63 % Lymphocytes % 29 % Monocytes % 5 % Eosinophils % 1 % Basophils % 1 % Neutrophils # 7.0 (1.3-7.7) k/uL Lymphocytes # 3.2 (1.0-4.8) k/uL Monocytes # 0.6 (0-1.0) k/uL Eosinophils # 0.1 (0-0.7) k/uL Basophils # 0.1 (0-0.2) k/uL Sodium 136 L (137-145) mmol/L Potassium 3.4 L (3.5-5.1) mmol/L Chloride 99 (98-107) mmol/L Carbon Dioxide 21 L (22-30) mmol/L Anion Gap 16 mmol/L BUN 13 (9-20) mg/dL Creatinine 0.79 (0.66-1.25) mg/dL Est GFR (CKD-EPI)AfAm >90 (>60 ml/min/1.73 sqM) Est GFR (CKD-EPI)NonAf >90 (>60 ml/min/1.73 sqM) Glucose 104 H (74-99) mg/dL Calcium 8.8 (8.4-10.2) mg/dL Magnesium 2.3 (1.6-2.3) mg/dL Total Bilirubin 1.2 (0.2-1.3) mg/dL AST 62 H (17-59) U/L ALT 59 H (4-49) U/L Alkaline Phosphatase 72 (38-126) U/L Total Protein 7.3 (6.3-8.2) g/dL Albumin 4.5 (3.5-5.0) g/dL Serum Alcohol 186 mg/dL Disposition Clinical Impression: Alcohol intoxication Disposition: HOME SELF-CARE Instructions (If sedation given, give patient instructions): Alcohol Intoxication (ED) Additional Instructions: Patient should stop drinking or follow-up in rehab Is patient prescribed a controlled substance at d/c from ED?: No Referrals: None,Stated [Primary Care Provider] - 1-2 days Time of Disposition: 20:12
[2023-01-01 16:53] LABS: Basophils # (A) 0.1 k/uL (0-0.2); Basophils % (A) 1 %; Eosinophils # (A) 0.1 k/uL (0-0.7); Eosinophils % (A) 1 %; HCT 42.3 % (39.0-53.0); HGB 15.3 gm/dL (13.0-17.5); Lymphocytes # (A) 3.2 k/uL (1.0-4.8); Lymphocytes % (A) 29 %; MCH 33.2 pg (25.0-35.0); MCHC 36.3 g/dL (31.0-37.0); MCV 91.5 fL (80.0-100.0); Mean Platelet Volume 8.3; Monocytes # (A) 0.6 k/uL (0-1.0); Monocytes % (A) 5 %; Neutrophils % (A) 63 %; Platelet Count 215 k/uL (150-450); RBC 4.62 m/uL (4.30-5.90); RDW 12.9 % (11.5-15.5); WBC 11.2 k/uL (3.8-10.6)
[2023-01-01 17:07] LABS: ALT 59 U/L (4-49); AST 62 U/L (17-59); African American GFR (CKD) >90 (>60 ml/min/1.73 sqM); Albumin 4.5 g/dL (3.5-5.0); Alkaline Phosphatase 72 U/L (38-126); Anion Gap 16 mmol/L; Blood Urea Nitrogen 13 mg/dL (9-20); Calcium 8.8 mg/dL (8.4-10.2); Carbon Dioxide 21 mmol/L (22-30); Chloride 99 mmol/L (98-107); Glucose 104 mg/dL (74-99); Magnesium 2.3 mg/dL (1.6-2.3); Non-African American GFR(CKD) >90 (>60 ml/min/1.73 sqM); Potassium 3.4 mmol/L (3.5-5.1); Sodium 136 mmol/L (137-145); Total Bilirubin 1.2 mg/dL (0.2-1.3); Total Protein 7.3 g/dL (6.3-8.2)
[2023-01-01 17:24] LABS: Alcohol 186 mg/dL
--- NOTE | 2023-01-01 17:53 | CT ---
EXAMINATION TYPE: CT brain wo con DATE OF EXAM: 01/01/2023 COMPARISON: 04/07/22 HISTORY: AMS, ETOH CT DLP: 1267.[address] of the brain was performed. The ventricles, basal cisterns and sulci overlying the cerebral convexities demonstrate a normal appe arance. There is no evidence for intracranial hemorrhage or sulcal effacement. No mass effects are seen. Osseous calvarium is intact. If symptoms persist consider MRI as clinically warranted. IMPRESSION: 1. No acute intracranial process is seen at this time.
[2023-01-01 20:55] VITALS: BP 129/68; PULSE 86; RESP 17; TEMP 98.4
== END 2023-01-01 20:55 | disposition home or self-care (01) ==
LOC: EC 15:46
DX: F10.129 Alcohol abuse with intoxication, unspecified (principal); F17.200 Nicotine dependence, unspecified, uncomplicated; Z86.59 Personal history of other mental and behavioral disorders
CPT/HCPCS: 36415; 80053; 83735; 85025; 70450; 99285; 96360; 96361 ×3; G0480; 80320

== ENCOUNTER 2023-01-15 00:57 | Emergency (ER) | payer OTHER ==
[2023-01-15 01:09] VITALS: RESP 16; TEMP 98
[2023-01-15] MEDS ORDERED: PANTOPRAZOLE 40 MG/10 ML VIAL IVP STA (01:17)
[2023-01-15] MEDS ORDERED: MORPHINE SULFATE 2 MG/ML SYRINGE IVP STA (01:19)
--- NOTE | 2023-01-15 01:25 | ED ---
General Adult HPI - General Chief complaint: Abdominal Pain Stated complaint: Abdominal Pain Time Seen by Provider: 01/15/23 00:58 Source: patient, EMS, RN notes reviewed, old records reviewed Mode of arrival: EMS Limitations: no limitations - History of Present Illness Initial comments: 37-year-old male presents with alcohol intoxication and chronic abdominal pain. History is somewhat limited secondary to acute alcohol intoxication. Patient states she's had pain for about 2 weeks. He states that he has been taking his medication as prescribed. There have been report that the patient vomited blood but the patient himself is unable to quantify any blood in his vomit. - Related Data Previous Rx's Medication Instructions Recorded Acetaminophen Tab [Tylenol] 650 mg PO Q4HR PRN tab 10/04/22 Mag Hydrox/Al Hydrox/Simeth 30 ml PO Q4HR PRN ml 10/04/22 [Maalox] Magnesium Hydroxide [Milk of 2,400 mg PO DAILY PRN ml 10/04/22 Magnesia Concentrate] QUEtiapine [SEROquel] 300 mg PO HS 30 Days #30 tab 10/04/22 Allergies Allergy/AdvReac Type Severity Reaction Status Date / Time No Known Allergies Allergy Verified 01/15/23 01:09 Review of Systems ROS Statement: Those systems with pertinent positive or pertinent negative responses have been documented in the HPI. ROS Other: All systems not noted in ROS Statement are negative. Past Medical History Past Medical History: Deep Vein Thrombosis (DVT) Additional Past Medical History / Comment(s): ETOH abuse, past withdrawls with tremors/nausea/seizure, chronic low back pain, recent R knee/leg pain, DVT R leg, Catogory 5 blood disorder. History of Any Multi-Drug Resistant Organisms: None Reported Past Surgical History: Cholecystectomy, Orthopedic Surgery Additional Past Surgical History / Comment(s): right knee tendon surgery Past Anesthesia/Blood Transfusion Reactions: Motion Sickness Additional Past Anesthesia/Blood Transfusion Reaction / Comment(s): Clausterphobia. Past Psychological History: Anxiety, Bipolar, Depression Smoking Status: Current every day smoker Past Alcohol Use History: Daily, Heavy Past Drug Use History: Cocaine - Past Family History Father History Unknown: Yes Family Medical History: CVA/TIA Additional Family Medical History / Comment(s): Unable to obtain family history secondary altered mentation Mother Family Medical History: Congestive Heart Failure (CHF) General Exam Limitations: no limitations General appearance: alert, in no apparent distress, appears intoxicated Head exam: Present: atraumatic, normocephalic Eye exam: Present: normal appearance, PERRL ENT exam: Present: normal exam Neck exam: Present: normal inspection. Absent: tenderness, meningismus Respiratory exam: Present: normal lung sounds bilaterally. Absent: respiratory distress Cardiovascular Exam: Present: regular rate, normal rhythm GI/Abdominal exam: Present: soft. Absent: distended, tenderness, guarding Extremities exam: Present: normal inspection, normal capillary refill. Absent: pedal edema Neurological exam: Present: alert, oriented X3, CN II-XII intact. Absent: motor sensory deficit Psychiatric exam: Present: flat affect. Absent: suicidal ideation Skin exam: Present: warm, dry, intact, normal color Course Vital Signs 01/15/23 01:00 Temperature 98.0 F Pulse Rate 91 Respiratory 16 Rate Blood Pressure 139/89 O2 Sat by Pulse 97 Oximetry Medical Decision Making - Medical Decision Making Was pt. sent in by a medical professional or institution (, PA, CORE STRIPPER, urgent care, hospital, or [facility]...) When possible be specific @ -No Did you speak to anyone other than the patient for history (EMS, parent, family, police, friend...)? What history was obtained from this source @ -Paramedics Did you review nursing and triage notes (agree or disagree)? Why? @ -I reviewed and agree with nursing and triage notes Were old charts reviewed (outside hosp., previous admission, EMS record, old EKG, old radiological studies, urgent care reports/EKG's, [facility] records)? Report findings @ -No old charts were reviewed Differential Diagnosis (chest pain, altered mental status, abdominal pain women, abdominal pain men, vaginal bleeding, weakness, fever, dyspnea, syncope, headache, dizziness, GI bleed, back pain, seizure, CVA, palpatations, mental health, musculoskeletal)? @ -Differential Abdominal Pain Men: Appendicitis, cholecystitis, diverticulosis, ischemic bowel, pancreatitis, hepatitis, UTI, gastroenteritis, AAA, incarcerated hernia, bowel obstruction, constipation, inflammatory bowel, hepatitis, peptic ulcer disease, splenic infarction, perforated viscus, testicular torsion, this is not meant to be an all-inclusive list EKG interpreted by me (3pts min.). @ -As above X-rays interpreted by me (1pt min.). @ -None done CT interpreted by me (1pt min.). @ -None done U/S interpreted by me (1pt. min.). @ -None done What testing was considered but not performed or refused? (CT, X-rays, U/S, labs)? Why? @ -None What meds were considered but not given or refused? Why? @ -None Did you discuss the management of the patient with other professionals (professionals i.e. , PA, CORE STRIPPER, lab, RT, psych nurse, health care social worker, butcher meat, teacher, chief digital officer, case picker)? Give summary @ -No Was smoking cessation discussed for >3mins.? @ -No Was critical care preformed (if so, how long)? @ -No Were there social determinants of health that impacted care today? How? (Homelessness, low income, unemployed, alcoholism, drug addiction, transportation, low edu. Level, literacy, decrease access to med. care, senior care, rehab)? @ -No Was there de-escalation of care discussed even if they declined (Discuss DNR or withdrawal of care, Hospice)? DNR status @ -No What co-morbidities impacted this encounter? (DM, HTN, Smoking, COPD, CAD, Cancer, CVA, ARF, Chemo, Hep., AIDS, mental health diagnosis, sleep apnea, morbid obesity)? @Alcohol abuse Was patient admitted / discharged? Hospital course, mention meds given and route, prescriptions, significant lab abnormalities, going to OR and other pertinent info. @37-year-old male presents for evaluation of abdominal pain which is been present for the past 2 weeks and alcohol intoxication. Patient has stable vitals. He has a nonsurgical abdominal exam with no focal tenderness. I did check hemoglobin which was stable, normal white blood cell count. Patient is intoxicated. No suicidal ideation. Patient stable for discharge into police custody. Undiagnosed new problem with uncertain prognosis? @ -No Drug Therapy requiring intensive monitoring for toxicity (Heparin, Nitro, Insulin, Cardizem)? @ -No Were any procedures done? @ -No Diagnosis/symptom? @ -Alcohol intoxication Acute, or Chronic, or Acute on Chronic? @Acute on chronic Uncomplicated (without systemic symptoms) or Complicated (systemic symptoms)? @ -default Side effects of treatment? @ -No Exacerbation, Progression, or Severe Exacerbation? @ -No Poses a threat to life or bodily function? How? (Chest pain, [place], [place], pneumonia, PE, COPD, DKA, ARF, appy, cholecystitis, CVA, Diverticulitis, Homicidal, Suicidal, threat to staff... and all critical care pts) @ -[Threat to self, chronic alcohol abuse - Lab Data Result diagrams: 01/15/23 01:18 01/15/23 01:18 Lab Results 01/15/23 01/15/23 Range/Units 01:18 01:18 WBC 6.7 (3.8-10.6) k/uL RBC 4.79 (4.30-5.90) m/uL Hgb 15.8 (13.0-17.5) gm/dL Hct 44.5 (39.0-53.0) % MCV 92.8 (80.0-100.0) fL MCH 33.0 (25.0-35.0) pg MCHC 35.5 (31.0-37.0) g/dL RDW 13.7 (11.5-15.5) % Plt Count 197 (150-450) k/uL MPV 7.7 Neutrophils % 59 % Lymphocytes % 30 % Monocytes % 6 % Eosinophils % 3 % Basophils % 1 % Neutrophils # 4.0 (1.3-7.7) k/uL Lymphocytes # 2.0 (1.0-4.8) k/uL Monocytes # 0.4 (0-1.0) k/uL Eosinophils # 0.2 (0-0.7) k/uL Basophils # 0.0 (0-0.2) k/uL Sodium 140 (137-145) mmol/L Potassium 3.7 (3.5-5.1) mmol/L Chloride 105 (98-107) mmol/L Carbon Dioxide 23 (22-30) mmol/L Anion Gap 12 mmol/L BUN 5 L (9-20) mg/dL Creatinine 0.64 L (0.66-1.25) mg/dL Est GFR (CKD-EPI)AfAm >90 (>60 ml/min/1.73 sqM) Est GFR (CKD-EPI)NonAf >90 (>60 ml/min/1.73 sqM) Glucose 122 H (74-99) mg/dL Calcium 8.4 (8.4-10.2) mg/dL Serum Alcohol 281 H* mg/dL Disposition Clinical Impression: Alcohol use disorder, Alcohol intoxication Disposition: HOME SELF-CARE Condition: Fair Instructions (If sedation given, give patient instructions): Alcohol Intoxication (ED) Is patient prescribed a controlled substance at d/c from ED?: No Referrals: None,Stated [Primary Care Provider] - 1-2 days Time of Disposition: 03:30
[2023-01-15 01:28] LABS: Basophils % (A) 1 %; Eosinophils # (A) 0.2 k/uL (0-0.7); Eosinophils % (A) 3 %; HCT 44.5 % (39.0-53.0); HGB 15.8 gm/dL (13.0-17.5); Lymphocytes % (A) 30 %; MCHC 35.5 g/dL (31.0-37.0); MCV 92.8 fL (80.0-100.0); Mean Platelet Volume 7.7; Monocytes # (A) 0.4 k/uL (0-1.0); Monocytes % (A) 6 %; Neutrophils % (A) 59 %; Platelet Count 197 k/uL (150-450); RBC 4.79 m/uL (4.30-5.90); RDW 13.7 % (11.5-15.5); WBC 6.7 k/uL (3.8-10.6)
[2023-01-15 01:49] LABS: African American GFR (CKD) >90 (>60 ml/min/1.73 sqM); Anion Gap 12 mmol/L; Blood Urea Nitrogen 5 mg/dL (9-20); Calcium 8.4 mg/dL (8.4-10.2); Carbon Dioxide 23 mmol/L (22-30); Chloride 105 mmol/L (98-107); Glucose 122 mg/dL (74-99); Non-African American GFR(CKD) >90 (>60 ml/min/1.73 sqM); Potassium 3.7 mmol/L (3.5-5.1); Sodium 140 mmol/L (137-145)
[2023-01-15 01:59] LABS: Alcohol 281 mg/dL
[2023-01-15 02:37] VITALS: BP 146/86; PULSE 96
== END 2023-01-15 03:18 | disposition home or self-care (01) ==
LOC: EC 00:57
DX: F10.129 Alcohol abuse with intoxication, unspecified (principal); F17.200 Nicotine dependence, unspecified, uncomplicated; Z90.49 Acquired absence of other specified parts of digestive tract; Y90.8 Blood alcohol level of 240 mg/100 ml or more
CPT/HCPCS: 36415; 80048; 85025; 99284; 96374; 96375; G0480; J2270; C9113; 80320

== ENCOUNTER 2023-04-23 19:57 | Emergency (ER) | payer OTHER ==
[2023-04-23] MEDS ORDERED: LORazepam 1 MG TAB PO STA (20:13)
--- NOTE | 2023-04-23 20:13 | ED ---
General Adult HPI - General Source: patient, EMS, RN notes reviewed Mode of arrival: EMS Limitations: no limitations <Jorge Alicia - Last Filed: 04/23/23 20:12> <Luigi Humphrey - Last Filed: 04/24/23 13:00> - General Stated complaint: mental health Time Seen by Provider: 04/23/23 19:59 - History of Present Illness Initial comments: Patient is a 37-year-old male presenting to the emergency department for mental health evaluation. Patient states he has not been taking his meds for the past couple weeks. Patient does have anger and thoughts of self-harm. Patient admits to being depressed. Patient has not been eating well. Patient has not been sleeping well. (Jorge Alicia) - Related Data Home Medications Medication Instructions Recorded Confirmed Buprenorphine HCl/Naloxone HCl 1 tab SUBLINGUAL BID 04/23/23 04/23/23 [Zubsolv 2.9-0.71 mg Tablet Sl] Divalproex Sodium [Depakote] 1,000 mg PO BID 04/23/23 04/23/23 Mirtazapine [Remeron] 30 mg PO HS 04/23/23 04/23/23 OLANZapine [ZyPREXA] 7.5 mg PO HS 04/23/23 04/23/23 Previous Rx's Medication Instructions Recorded LORazepam [Ativan] 1 mg PO HS 3 Days #3 tab 04/24/23 Allergies Allergy/AdvReac Type Severity Reaction Status Date / Time No Known Allergies Allergy Verified 04/23/23 20:38 Review of Systems ROS Other: All systems not noted in ROS Statement are negative. Constitutional: Denies: fever Eyes: Denies: eye pain ENT: Reports: congestion. Denies: ear pain Respiratory: Denies: dyspnea Cardiovascular: Denies: chest pain Gastrointestinal: Denies: abdominal pain Psychiatric: Reports: depression, suicidal thoughts <oJrge Alicia - Last Filed: 04/23/23 20:12> ROS Other: All systems not noted in ROS Statement are negative. <Luigi Humphrey - Last Filed: 04/24/23 13:00> ROS Statement: Those systems with pertinent positive or pertinent negative responses have been documented in the HPI. Past Medical History Past Medical History: Deep Vein Thrombosis (DVT) Additional Past Medical History / Comment(s): ETOH abuse, past withdrawls with tremors/nausea/seizure, chronic low back pain, recent R knee/leg pain, DVT R leg, Catogory 5 blood disorder. History of Any Multi-Drug Resistant Organisms: None Reported Past Surgical History: Cholecystectomy, Orthopedic Surgery Additional Past Surgical History / Comment(s): right knee tendon surgery Past Anesthesia/Blood Transfusion Reactions: Motion Sickness Additional Past Anesthesia/Blood Transfusion Reaction / Comment(s): Clausterphobia. Past Psychological History: Anxiety, Bipolar, Depression Smoking Status: Current every day smoker Past Alcohol Use History: Daily, Heavy Past Drug Use History: Cocaine - Past Family History Father History Unknown: Yes Family Medical History: CVA/TIA Additional Family Medical History / Comment(s): Unable to obtain family history secondary altered mentation Mother Family Medical History: Congestive Heart Failure (CHF) <Jorge Alicia - Last Filed: 04/23/23 20:12> General Exam Limitations: no limitations General appearance: alert, in no apparent distress Head exam: Present: normocephalic Eye exam: Present: normal appearance Neck exam: Present: normal inspection Respiratory exam: Present: normal lung sounds bilaterally Cardiovascular Exam: Present: regular rate, normal rhythm GI/Abdominal exam: Present: soft. Absent: tenderness Extremities exam: Present: normal inspection Neurological exam: Present: alert Psychiatric exam: Present: other (Patient is mildly agitated) Skin exam: Present: normal color <Jorge Alicia - Last Filed: 04/23/23 20:12> Course Vital Signs 04/23/23 04/24/23 20:10 06:51 Temperature 98.7 F 98.0 F Pulse Rate 87 Respiratory 18 18 Rate Blood Pressure 141/79 O2 Sat by Pulse 97 99 Oximetry Medical Decision Making <Luigi Humphrey - Last Filed: 04/24/23 13:00> - Medical Decision Making Was pt. sent in by a medical professional or institution (, PA, SHIPPING AGENT, urgent care, hospital, or fpc...) When possible be specific @ -No Did you speak to anyone other than the patient for history (EMS, parent, family, police, friend...)? What history was obtained from this source @ -No Did you review nursing and triage notes (agree or disagree)? Why? @ -I reviewed and agree with nursing and triage notes Were old charts reviewed (outside hosp., previous admission, EMS record, old EKG, old radiological studies, urgent care reports/EKG's, fpc records)? Report findings @ -No old charts were reviewed Differential Diagnosis (chest pain, altered mental status, abdominal pain women, abdominal pain men, vaginal bleeding, weakness, fever, dyspnea, syncope, headache, dizziness, GI bleed, back pain, seizure, CVA, palpatations, mental health, musculoskeletal)? @ -[Differential Mental Health Depression, anxiety, bipolar, psychosis, schizophrenia, borderline personality, situational depression, adjustment disorder, behavioral disorder, brain tumor, malingering, substance abuse, encephalopathy, medication reaction, dementia, hypothyroidism, degenerative neurologic disorder, lupus.... This is not meant to be all-inclusive list EKG interpreted by me (3pts min.). @ -As above X-rays interpreted by me (1pt min.). @ -None done CT interpreted by me (1pt min.). @ -None done U/S interpreted by me (1pt. min.). @ -None done What testing was considered but not performed or refused? (CT, X-rays, U/S, labs)? Why? @ -None What meds were considered but not given or refused? Why? @ -None Did you discuss the management of the patient with other professionals (professionals i.e. , PA, SHIPPING AGENT, lab, RT, psych nurse, sexual assault social worker, music copyist, teacher, armor officer, field nurse case manager)? Give summary @ -[Patient evaluated by EPS nurse and felt to be safe for discharge. Patient has signed a safety plan. Was smoking cessation discussed for >3mins.? @ -No Was critical care preformed (if so, how long)? @ -No Were there social determinants of health that impacted care today? How? (Homelessness, low income, unemployed, alcoholism, drug addiction, transportation, low edu. Level, literacy, decrease access to med. care, retirement, re hab)? @ -No Was there de-escalation of care discussed even if they declined (Discuss DNR or withdrawal of care, Hospice)? DNR status @ -No What co-morbidities impacted this encounter? (DM, HTN, Smoking, COPD, CAD, Cancer, CVA, ARF, Chemo, Hep., AIDS, mental health diagnosis, sleep apnea, morbid obesity)? @ -None Was patient admitted / discharged? Hospital course, mention meds given and route, prescriptions, significant lab abnormalities, going to OR and other pertinent info. @ -Patient medically cleared by the previous physician and has been evaluated by mental health, stable for discharge at this time. Given outpatient resources. Undiagnosed new problem with uncertain prognosis? @ -No Drug Therapy requiring intensive monitoring for toxicity (Heparin, Nitro, Insulin, Cardizem)? @ -No Were any procedures done? @ -No Diagnosis/symptom? @ Depression, anxiety Acute, or Chronic, or Acute on Chronic? @ Acute on chronic Uncomplicated (without systemic symptoms) or Complicated (systemic symptoms)? @ -default Side effects of treatment? @ -No Exacerbation, Progression, or Severe Exacerbation? @ -No Poses a threat to life or bodily function? How? (Chest pain, [place], [place], pneumonia, PE, COPD, DKA, ARF, appy, cholecystitis, CVA, Diverticulitis, Homicidal, Suicidal, threat to staff... and all critical care pts) @ -[Low risk at this time (Luigi Humphrey) - Lab Data Lab Results 04/23/23 04/23/23 Range/Units 20:30 20:30 Urine Opiates Screen Not Detected (NotDetected) Ur Oxycodone Screen Not Detected (NotDetected) Urine Methadone Screen Not Detected (NotDetected) Ur Propoxyphene Screen Not Detected (NotDetected) Ur Barbiturates Screen Not Detected (NotDetected) U Tricyclic Antidepress Not Detected (NotDetected) Ur Phencyclidine Scrn Not Detected (NotDetected) Ur Amphetamines Screen Not Detected (NotDetected) U Methamphetamines Scrn Not Detected (NotDetected) U Benzodiazepines Scrn Not Detected (NotDetected) Urine Cocaine Screen Detected H (NotDetected) U Marijuana (THC) Screen Not Detected (NotDetected) Coronavirus (PCR) Not Detected (Not Detectd) Disposition <Jorge Alicia - Last Filed: 04/23/23 20:12> Is patient prescribed a controlled substance at d/c from ED?: No Time of Disposition: 12:59 <Luigi Humphrey - Last Filed: 04/24/23 13:00> Clinical Impression: Major depressive disorder with psychotic features Disposition: HOME SELF-CARE Condition: Fair Instructions (If sedation given, give patient instructions): Depression (ED) Additional Instructions: Please follow up with community mental health. Prescriptions: LORazepam [Ativan] 1 mg PO HS 3 Days #3 tab Referrals: None,Stated [Primary Care Provider] - 1-2 days
[2023-04-23 20:42] VITALS: RESP 18
[2023-04-23 21:10] LABS: Amphetamine Screen,Urine Not Detected (NotDetected); Barbiturate Screen,Urine Not Detected (NotDetected); Benzodiazepines Screen,Urine Not Detected (NotDetected); Cocaine Screen,Urine Detected (NotDetected); Methadone Screen, Urine Not Detected (NotDetected); Opiate Screen,Urine Not Detected (NotDetected); Oxycodone Screen, Urine Not Detected (NotDetected); Phencyclidine Screen,Urine Not Detected (NotDetected); Tricyclic Antidepressant,Urine Not Detected (NotDetected); Urn Cannabinoid Scrn Not Detected (NotDetected)
[2023-04-24 07:11] VITALS: BP 141/79; PULSE 87; TEMP 98
== END 2023-04-24 13:24 | disposition home or self-care (01) ==
LOC: EC 19:57
DX: F32.3 Major depressive disorder, single episode, severe with psychotic features (principal); F41.9 Anxiety disorder, unspecified; R45.1 Restlessness and agitation; F17.200 Nicotine dependence, unspecified, uncomplicated; F14.90 Cocaine use, unspecified, uncomplicated; Z20.822 Contact with and (suspected) exposure to COVID-19; Z79.899 Other long term (current) drug therapy
CPT/HCPCS: 80306; 82075; 87635; 99285

== ENCOUNTER 2023-06-28 05:33 | Emergency (ER) | payer OTHER ==
[2023-06-28 05:59] VITALS: RESP 20; TEMP 97.6
--- NOTE | 2023-06-28 06:55 | ED ---
URI HPI - General Chief Complaint: Upper Respiratory Infection Stated Complaint: vomiting Time Seen by Provider: 06/28/23 05:51 Source: patient, RN notes reviewed Mode of arrival: ambulatory Limitations: no limitations - History of Present Illness Initial Comments: 37-year-old male presents emergency Department chief complaint of cough congestion fever chills bodyaches nausea vomiting. Patient states symptoms have been going on over the last several days. He does admit to several sick contacts at home. Denies any localized abdominal pain denies chest pain or shortness of breath. She is not taking any recent [id number] cough and cold meds. - Related Data Home Medications Medication Instructions Recorded Confirmed Buprenorphine HCl/Naloxone HCl 1 tab SUBLINGUAL BID 04/23/23 04/23/23 [Zubsolv 2.9-0.71 mg Tablet Sl] Divalproex Sodium [Depakote] 1,000 mg PO BID 04/23/23 04/23/23 Mirtazapine [Remeron] 30 mg PO HS 04/23/23 04/23/23 OLANZapine [ZyPREXA] 7.5 mg PO HS 04/23/23 04/23/23 Previous Rx's Medication Instructions Recorded LORazepam [Ativan] 1 mg PO HS 3 Days #3 tab 04/24/23 Ketorolac [Toradol] 10 mg PO Q8HR #15 tab 06/28/23 Ondansetron Odt [Zofran Odt] 4 mg PO Q8HR PRN #10 tab 06/28/23 Allergies Allergy/AdvReac Type Severity Reaction Status Date / Time No Known Allergies Allergy Verified 06/28/23 05:37 Review of Systems ROS Statement: Those systems with pertinent positive or pertinent negative responses have been documented in the HPI. ROS Other: All systems not noted in ROS Statement are negative. Past Medical History Past Medical History: Deep Vein Thrombosis (DVT) Additional Past Medical History / Comment(s): ETOH abuse, past withdrawls with tremors/nausea/seizure, chronic low back pain, recent R knee/leg pain, DVT R leg, Catogory 5 blood disorder. History of Any Multi-Drug Resistant Organisms: None Reported Past Surgical History: Cholecystectomy, Orthopedic Surgery Additional Past Surgical History / Comment(s): right knee tendon surgery Past Anesthesia/Blood Transfusion Reactions: Motion Sickness Additional Past Anesthesia/Blood Transfusion Reaction / Comment(s): Clausterphobia. Past Psychological History: Anxiety, Bipolar, Depression Smoking Status: Current every day smoker Past Alcohol Use History: Daily, Heavy Past Drug Use History: Cocaine - Past Family History Father History Unknown: Yes Family Medical History: CVA/TIA Additional Family Medical History / Comment(s): Unable to obtain family history secondary altered mentation Mother Family Medical History: Congestive Heart Failure (CHF) General Exam Limitations: no limitations General appearance: alert, in no apparent distress Head exam: Present: atraumatic, normocephalic, normal inspection Eye exam: Present: normal appearance, PERRL, EOMI. Absent: scleral icterus, conjunctival injection, periorbital swelling ENT exam: Present: normal exam, normal oropharynx, mucous membranes moist Neck exam: Present: normal inspection, full ROM. Absent: tenderness, meningismus, lymphadenopathy Respiratory exam: Present: normal lung sounds bilaterally. Absent: respiratory distress, wheezes, rales, rhonchi, stridor Cardiovascular Exam: Present: normal rhythm, tachycardia, normal heart sounds. Absent: systolic murmur, diastolic murmur, rubs, gallop, clicks GI/Abdominal exam: Present: soft, normal bowel sounds. Absent: distended, tenderness, guarding, rebound, rigid Course Vital Signs 06/28/23 05:34 Temperature 97.6 F Pulse Rate 119 H Respiratory 20 Rate Blood Pressure 133/87 O2 Sat by Pulse 99 Oximetry Medical Decision Making - Medical Decision Making Was pt. sent in by a medical professional or institution (JOANA Duff, DOBBY LOOM CHAIN PEGGER, urgent care, hospital, or [facility]...) When possible be specific @ -No Did you speak to anyone other than the patient for history (EMS, parent, family, police, friend...)? What history was obtained from this source @ -No Did you review nursing and triage notes (agree or disagree)? Why? @ -I reviewed and agree with nursing and triage notes Were old charts reviewed (outside hosp., previous admission, EMS record, old EKG, old radiological studies, urgent care reports/EKG's, [facility] records)? Report findings @ -No old charts were reviewed Differential Diagnosis (chest pain, altered mental status, abdominal pain women, abdominal pain men, vaginal bleeding, weakness, fever, dyspnea, syncope, headache, dizziness, GI bleed, back pain, seizure, CVA, palpatations, mental health, musculoskeletal)? @ -COVID 19, RSV, influenza, pneumonia, acute bronchitis, URI, this list is not all inclusive EKG interpreted by me (3pts min.). @ -[None X-rays interpreted by me (1pt min.). @ -X-ray 2 view chest no acute cardio pulmonary process CT interpreted by me (1pt min.). @ -None done U/S interpreted by me (1pt. min.). @ -None done What testing was considered but not performed or refused? (CT, X-rays, U/S, labs)? Why? @ -None What meds were considered but not given or refused? Why? @ -None Did you discuss the management of the patient with other professionals (professionals i.e. , PA, DOBBY LOOM CHAIN PEGGER, lab, RT, psych nurse, social service technician, painter decorator, teacher, information assurance officer, director of casework services)? Give summary @ -No Was smoking cessation discussed for >3mins.? @ -No Was critical care preformed (if so, how long)? @ -No Were there social determinants of health that impacted care today? How? (Homelessness, low income, unemployed, alcoholism, drug addiction, transportation, low edu. Level, literacy, decrease access to med. care, correction, rehab)? @ -No Was there de-escalation of care discussed even if they declined (Discuss DNR or withdrawal of care, Hospice)? DNR status @ -No What co-morbidities impacted this encounter? (DM, HTN, Smoking, COPD, CAD, Cancer, CVA, ARF, Chemo, Hep., AIDS, mental health diagnosis, sleep apnea, mor bid obesity)? @ -None Was patient admitted / discharged? Hospital course, mention meds given and route, prescriptions, significant lab abnormalities, going to OR and other pertinent info. @ -Discharge patient has a viral URI negative Monospot, x-ray shows no evidence of pneumonia. Patient we discharged with Zofran for his nausea. Undiagnosed new problem with uncertain prognosis? @ -No Drug Therapy requiring intensive monitoring for toxicity (Heparin, Nitro, Insulin, Cardizem)? @ -No Were any procedures done? @ -No Diagnosis/symptom? @ -Viral syndrome Acute, or Chronic, or Acute on Chronic? @ -[Acute Uncomplicated (without systemic symptoms) or Complicated (systemic symptoms)? @ -[Uncomplicated Side effects of treatment? @ -No Exacerbation, Progression, or Severe Exacerbation? @ -No Poses a threat to life or bodily function? How? (Chest pain, [place], [place], pneumonia, PE, COPD, DKA, ARF, appy, cholecystitis, CVA, Diverticulitis, Homicidal, Suicidal, threat to staff... and all critical care pts) @ -No - Lab Data Lab Results 06/28/23 Range/Units 06:15 Influenza Type A (PCR) Not Detected (Not Detectd) Influenza Type B (PCR) Not Detected (Not Detectd) RSV (PCR) Not Detected (Not Detectd) SARS-CoV-2 (PCR) Not Detected (Not Detectd) Disposition Clinical Impression: Viral infection Disposition: HOME SELF-CARE Condition: Stable Instructions (If sedation given, give patient instructions): Viral Syndrome (ED) Additional Instructions: Please return to the Emergency Department if symptoms worsen or any other concerns. Prescriptions: Ketorolac [Toradol] 10 mg PO Q8HR #15 tab Ondansetron Odt [Zofran Odt] 4 mg PO Q8HR PRN #10 tab PRN Reason: Nausea Is patient prescribed a controlled substance at d/c from ED?: No Referrals: None,Stated [Primary Care Provider] - 1-2 days Time of Disposition: 07:21
--- NOTE | 2023-06-28 07:25 | XR ---
EXAMINATION TYPE: XR chest 2V DATE OF EXAM: 06/28/2023 COMPARISON: Chest x-ray December 30, 2022 HISTORY: Cough TECHNIQUE: Frontal and lateral views of the chest are obtained. FINDINGS: There is no suspicious focal air space opacity, pleural effusion, or pneumothorax seen. T he cardiac silhouette size is stable and within normal limits. The osseous structures are intact. IMPRESSION: No acute pulmonary infiltrate. No significant change from most recent prior.
[2023-06-28 08:27] VITALS: BP 145/88; PULSE 70
== END 2023-06-28 08:17 | disposition home or self-care (01) ==
LOC: EC 05:33
DX: B34.9 Viral infection, unspecified (principal); F31.9 Bipolar disorder, unspecified; F41.9 Anxiety disorder, unspecified; F17.200 Nicotine dependence, unspecified, uncomplicated; Z79.899 Other long term (current) drug therapy; Z90.49 Acquired absence of other specified parts of digestive tract; Z20.822 Contact with and (suspected) exposure to COVID-19
CPT/HCPCS: 71046; 87636; 99284

== ENCOUNTER 2023-07-09 00:37 | Inpatient (IN) | payer MEDICAID, OTHER ==
--- NOTE | 2023-07-09 03:51 | ED ---
General Adult HPI - General Source: patient Mode of arrival: ambulatory Limitations: no limitations <Canelo Sauceda - Last Filed: 07/09/23 03:53> - General Source: RN notes reviewed Mode of arrival: ambulatory Limitations: no limitations <Mick Frederick - Last Filed: 07/09/23 13:38> - General Chief complaint: Psychiatric Symptoms Stated complaint: Mental Health Time Seen by Provider: 07/09/23 03:35 - History of Present Illness Initial comments: 37 year old male presenting to the ED with a chief complaint of psychiatric problem. Patient states he has not been on his psych medications for the past month and he has "not been himself". Notes some increased depression. (Canelo Sauceda) - Related Data Home Medications Medication Instructions Recorded Confirmed Buprenorphine HCl/Naloxone HCl 1 tab SUBLINGUAL BID 04/23/23 04/23/23 [Zubsolv 2.9-0.71 mg Tablet Sl] Divalproex Sodium [Depakote] 1,000 mg PO BID 04/23/23 04/23/23 Mirtazapine [Remeron] 30 mg PO HS 04/23/23 04/23/23 OLANZapine [ZyPREXA] 7.5 mg PO HS 04/23/23 04/23/23 Previous Rx's Medication Instructions Recorded LORazepam [Ativan] 1 mg PO HS 3 Days #3 tab 04/24/23 Ketorolac [Toradol] 10 mg PO Q8HR #15 tab 06/28/23 Ondansetron Odt [Zofran Odt] 4 mg PO Q8HR PRN #10 tab 06/28/23 Allergies Allergy/AdvReac Type Severity Reaction Status Date / Time No Known Allergies Allergy Verified 07/09/23 00:51 Review of Systems ROS Other: All systems not noted in ROS Statement are negative. <Canelo Sauceda - Last Filed: 07/09/23 03:53> ROS Other: All systems not noted in ROS Statement are negative. <Mick Frederick - Last Filed: 07/09/23 13:38> ROS Statement: Those systems with pertinent positive or pertinent negative responses have been documented in the HPI. Past Medical History Past Medical History: Deep Vein Thrombosis (DVT), Thyroid Disorder Additional Past Medical History / Comment(s): ETOH abuse, past withdrawls with tremors/nausea/seizure, chronic low back pain, recent R knee/leg pain, DVT R leg, Catogory 5 blood disorder. History of Any Multi-Drug Resistant Organisms: None Reported Past Surgical History: Cholecystectomy, Orthopedic Surgery Additional Past Surgical History / Comment(s): right knee tendon surgery Past Anesthesia/Blood Transfusion Reactions: Motion Sickness Additional Past Anesthesia/Blood Transfusion Reaction / Comment(s): Clausterphobia. Past Psychological History: Anxiety, Bipolar, Depression Smoking Status: Current every day smoker Past Alcohol Use History: Daily, Heavy Past Drug Use History: Cocaine - Past Family History Father History Unknown: Yes Family Medical History: CVA/TIA Additional Family Medical History / Comment(s): Unable to obtain family history secondary altered mentation Mother Family Medical History: Congestive Heart Failure (CHF) <Canelo Sauceda - Last Filed: 07/09/23 03:53> General Exam <Canelo Sauceda - Last Filed: 07/09/23 03:53> Limitations: no limitations General appearance: alert, in no apparent distress Head exam: Present: atraumatic, normocephalic, normal inspection Eye exam: Present: normal appearance, PERRL, EOMI. Absent: scleral icterus, conjunctival injection, periorbital swelling ENT exam: Present: normal exam, normal oropharynx, mucous membranes moist Neck exam: Present: normal inspection, full ROM. Absent: tenderness, meningismus, lymphadenopathy Respiratory exam: Present: normal lung sounds bilaterally. Absent: respiratory distress, wheezes, rales, rhonchi, stridor Cardiovascular Exam: Present: regular rate, normal rhythm, normal heart sounds. Absent: systolic murmur, diastolic murmur, rubs, gallop, clicks <Mick Frederick - Last Filed: 07/09/23 13:38> - General Exam Comments Initial Comments: Visual physical exam Sleeping comfortably, NAD Alert and oriented x 3 MSK- No gross abnormalities. Ambulates without difficulty. (Canelo Sauceda) Course Vital Signs 07/09/23 07/09/23 00:51 07:54 Temperature 98.9 F 98.2 F Pulse Rate 90 94 Respiratory 20 18 Rate Blood Pressure 122/86 120/82 O2 Sat by Pulse 97 99 Oximetry Medical Decision Making <Canelo Sauceda - Last Filed: 07/09/23 03:53> <Mick Frederick - Last Filed: 07/09/23 13:38> - Medical Decision Making Quicknote portion performed. Signed Canelo Sauceda PA-C (Canelo Sauceda) Was pt. sent in by a medical professional or institution (, PA, STUDENT RECORDS SPECIALIST, urgent care, hospital, or skilled nursing...) When possible be specific @ -No Did you speak to anyone other than the patient for history (EMS, parent, family, police, friend...)? What history was obtained from this source @ -No Did you review nursing and triage notes (agree or disagree)? Why? @ -I reviewed and agree with nursing and triage notes Were old charts reviewed (outside hosp., previous admission, EMS record, old EKG, old radiological studies, urgent care reports/EKG's, skilled nursing records)? Report findings @ -Reviewed prior records, labs Differential Diagnosis (chest pain, altered mental status, abdominal pain women, abdominal pain men, vaginal bleeding, weakness, fever, dyspnea, syncope, headache, dizziness, GI bleed, back pain, seizure, CVA, palpatations, mental health, musculoskeletal)? @ -[Differential Mental Health Depression, anxiety, bipolar, psychosis, schizophrenia, borderline personality, situational depression, adjustment disorder, behavioral disorder, brain tumor, malingering, substance abuse, encephalopathy, medication reaction, dementia, hypothyroidism, degenerative neurologic disorder, lupus.... This is not meant to be all-inclusive list EKG interpreted by me (3pts min.). @ -None X-rays interpreted by me (1pt min.). @ -None done CT interpreted by me (1pt min.). @ -None done U/S interpreted by me (1pt. min.). @ -None done What testing was considered but not performed or refused? (CT, X-rays, U/S, labs)? Why? @ -None What meds were considered but not given or refused? Why? @ -None Did you discuss the management of the patient with other professionals (professionals i.e. , PA, STUDENT RECORDS SPECIALIST, lab, RT, psych nurse, social service manager, runner on, teacher, command and control officer, case investigator)? Give summary @ -EPS evaluated patient case discussed with psychiatrist recommends inpatient treatment Was smoking cessation discussed for >3mins.? @ -No Was critical care preformed (if so, how long)? @ -No Were there social determinants of health that impacted care today? How? (Homelessness, low income, unemployed, alcoholism, drug addiction, transportation, low edu. Level, literacy, decrease access to med. care, alf, rehab)? @ -No Was there de-escalation of care discussed even if they declined (Discuss DNR or withdrawal of care, Hospice)? DNR status @ -No What co-morbidities impacted this encounter? (DM, HTN, Smoking, COPD, CAD, Cancer, CVA, ARF, Chemo, Hep., AIDS, mental health diagnosis, sleep apnea, morbid obesity)? @ -[Psychiatric history Was patient admitted / discharged? Hospital course, mention meds given and route, prescriptions, significant lab abnormalities, going to OR and other pertinent info. @ -Admitted to [facility] for psychiatric treatment Undiagnosed new problem with uncertain prognosis? @ -No Drug Therapy requiring intensive monitoring for toxicity (Heparin, Nitro, Insulin, Cardizem)? @ -No Were any procedures done? @ -No Diagnosis/symptom? @ -[Depression, suicidal ideation Acute, or Chronic, or Acute on Chronic? @ -Acute Uncomplicated (without systemic symptoms) or Complicated (systemic symptoms)? @ -Uncomplicated Side effects of treatment? @ -No Exacerbation, Progression, or Severe Exacerbation? @ -No Poses a threat to life or bodily function? How? (Chest pain, USA, NM, pneumonia, PE, COPD, DKA, ARF, appy, cholecystitis, CVA, Diverticulitis, Homicidal, Suicidal, threat to staff... and all critical care pts) @ -Yes patient is suicidal (Mick Frederick) - Lab Data Lab Results 07/09/23 Range/Units 11:03 Urine Opiates Screen Not Detected (NotDetected) Ur Oxycodone Screen Not Detected (NotDetected) Urine Methadone Screen Not Detected (NotDetected) Ur Barbiturates Screen Not Detected (NotDetected) U Tricyclic Antidepress Not Detected (NotDetected) Ur Phencyclidine Scrn Not Detected (NotDetected) Ur Amphetamines Screen Detected H (NotDetected) U Methamphetamines Scrn Detected H (NotDetected) U Benzodiazepines Scrn Not Detected (NotDetected) Urine Cocaine Screen Not Detected (NotDetected) U Marijuana (THC) Screen Not Detected (NotDetected) Disposition <Canelo Sauceda - Last Filed: 07/09/23 03:53> Time of Disposition: 13:38 <Mick Frederick - Last Filed: 07/09/23 13:38> Clinical Impression: Depression, Suicidal ideation Disposition: TRANSFER TO PSYCH HOSP/UNIT Referrals: None,Stated [Primary Care Provider] - 1-2 days
[2023-07-09 11:37] LABS: Amphetamine Screen,Urine Detected (NotDetected); Barbiturate Screen,Urine Not Detected (NotDetected); Benzodiazepines Screen,Urine Not Detected (NotDetected); Cocaine Screen,Urine Not Detected (NotDetected); Methadone Screen, Urine Not Detected (NotDetected); Opiate Screen,Urine Not Detected (NotDetected); Oxycodone Screen, Urine Not Detected (NotDetected); Phencyclidine Screen,Urine Not Detected (NotDetected); Tricyclic Antidepressant,Urine Not Detected (NotDetected); Urn Cannabinoid Scrn Not Detected (NotDetected)
[2023-07-09] MEDS ORDERED: ONDANSETRON ODT 4 MG TAB PO PRN (18:33)
[2023-07-09] MEDS ORDERED: MAG HYDROX/AL HYDROX/SIMETH 30 ML CUP PO PRN (18:34)
[2023-07-09] MEDS ORDERED: MAGNESIUM HYDROXIDE 2,400 MG/30 ML CUP PO PRN (18:34)
[2023-07-09] MEDS ORDERED: LORazepam 1 MG TAB PO PRN (18:34)
[2023-07-09] MEDS ORDERED: haloperidoL 5 MG TAB PO PRN (18:34)
[2023-07-09] MEDS ORDERED: LORazepam 2 MG/ML INJ IM PRN (18:34)
[2023-07-09] MEDS ORDERED: HALOPERIDOL LACTATE 5 MG/ML 1 ML VIAL IM PRN (18:34)
[2023-07-09] MEDS: LORazepam 1 MG TAB PO PRN (19:46)
[2023-07-09] MEDS ORDERED: QUEtiapine 100 MG TAB PO SCH (21:00)
[2023-07-10] MEDS: NICOTINE 14MG/24HR PATCH TRANSDERM SCH (08:13)
[2023-07-10] MEDS ORDERED: DULoxetine HCL 30 MG CAPSULE.DR PO SCH (09:00)
[2023-07-10 11:30] LABS: Basophils % (A) 0 %; Eosinophils # (A) 0.1 k/uL (0-0.7); Eosinophils % (A) 1 %; HCT 45.9 % (39.0-53.0); HGB 15.7 gm/dL (13.0-17.5); Lymphocytes % (A) 12 %; MCH 32.1 pg (25.0-35.0); MCHC 34.1 g/dL (31.0-37.0); Mean Platelet Volume 7.6; Monocytes # (A) 0.3 k/uL (0-1.0); Monocytes % (A) 3 %; Neutrophils # (A) 6.6 k/uL (1.3-7.7); Neutrophils % (A) 83 %; Platelet Count 225 k/uL (150-450); RBC 4.89 m/uL (4.30-5.90); RDW 12.8 % (11.5-15.5)
[2023-07-10 12:24] LABS: ALT 64 U/L (4-49); AST 94 U/L (17-59); African American GFR (CKD) >90 (>60 ml/min/1.73 sqM); Albumin 3.8 g/dL (3.5-5.0); Alkaline Phosphatase 87 U/L (38-126); Anion Gap 6 mmol/L; Blood Urea Nitrogen 9 mg/dL (9-20); Calcium 9.1 mg/dL (8.4-10.2); Carbon Dioxide 27 mmol/L (22-30); Chloride 105 mmol/L (98-107); Glucose 118 mg/dL (74-99); Non-African American GFR(CKD) >90 (>60 ml/min/1.73 sqM); Potassium 3.9 mmol/L (3.5-5.1); Sodium 138 mmol/L (137-145); Total Bilirubin 1.2 mg/dL (0.2-1.3); Total Protein 6.3 g/dL (6.3-8.2)
--- NOTE | 2023-07-10 13:58 | P.HP ---
Psychiatric H&P - . H&P Date: 07/10/23 History & Physical: Allergies Allergy/AdvReac Type Severity Reaction Status Date / Time No Known Allergies Allergy Verified 07/09/23 14:24 Vital Signs Temp 97.7 F 07/10/23 06:45 Pulse 88 07/10/23 06:45 Resp 16 07/10/23 06:45 BP 117/64 07/10/23 06:45 Pulse Ox 95 07/09/23 18:29 FiO2 Intake & Output 07/09/23 07/10/23 07/10/23 18:59 06:59 18:59 Weight 119.7 kg Laboratory Last Values WBC 8.0 k/uL (3.8-10.6) 07/10/23 10:48 RBC 4.89 m/uL (4.30-5.90) 07/10/23 10:48 Hgb 15.7 gm/dL (13.0-17.5) 07/10/23 10:48 Hct 45.9 % (39.0-53.0) 07/10/23 10:48 MCV 94.0 fL (80.0-100.0) 07/10/23 10:48 MCH 32.1 pg (25.0-35.0) 07/10/23 10:48 MCHC 34.1 g/dL (31.0-37.0) 07/10/23 10:48 RDW 12.8 % (11.5-15.5) 07/10/23 10:48 Plt Count 225 k/uL (150-450) 07/10/23 10:48 MPV 7.6 07/10/23 10:48 Neutrophils % 83 % 07/10/23 10:48 Lymphocytes % 12 % 07/10/23 10:48 Monocytes % 3 % 07/10/23 10:48 Eosinophils % 1 % 07/10/23 10:48 Basophils % 0 % 07/10/23 10:48 Neutrophils # 6.6 k/uL (1.3-7.7) 07/10/23 10:48 Lymphocytes # 1.0 k/uL (1.0-4.8) 07/10/23 10:48 Monocytes # 0.3 k/uL (0-1.0) 07/10/23 10:48 Eosinophils # 0.1 k/uL (0-0.7) 07/10/23 10:48 Basophils # 0.0 k/uL (0-0.2) 07/10/23 10:48 Sodium 138 mmol/L (137-145) 07/10/23 10:48 Potassium 3.9 mmol/L (3.5-5.1) 07/10/23 10:48 Chloride 105 mmol/L (98-107) 07/10/23 10:48 Carbon Dioxide 27 mmol/L (22-30) 07/10/23 10:48 Anion Gap 6 mmol/L 07/10/23 10:48 BUN 9 mg/dL (9-20) 07/10/23 10:48 Creatinine 0.84 mg/dL (0.66-1.25) 07/10/23 10:48 Est GFR (CKD-EPI)AfAm >90 (>60 ml/min/1.73 sqM) 07/10/23 10:48 Est GFR (CKD-EPI)NonAf >90 (>60 ml/min/1.73 sqM) 07/10/23 10:48 Glucose 118 mg/dL (74-99) H 07/10/23 10:48 Calcium 9.1 mg/dL (8.4-10.2) 07/10/23 10:48 Total Bilirubin 1.2 mg/dL (0.2-1.3) 07/10/23 10:48 AST 94 U/L (17-59) H 07/10/23 10:48 ALT 64 U/L (4-49) H 07/10/23 10:48 Alkaline Phosphatase 87 U/L (38-126) 07/10/23 10:48 Total Protein 6.3 g/dL (6.3-8.2) 07/10/23 10:48 Albumin 3.8 g/dL (3.5-5.0) 07/10/23 10:48 Urine Opiates Screen Not Detected (NotDetected) 07/09/23 11:03 Ur Oxycodone Screen Not Detected (NotDetected) 07/09/23 11:03 Urine Methadone Screen Not Detected (NotDetected) 07/09/23 11:03 Ur Barbiturates Screen Not Detected (NotDetected) 07/09/23 11:03 U Tricyclic Antidepress Not Detected (NotDetected) 07/09/23 11:03 Ur Phencyclidine Scrn Not Detected (NotDetected) 07/09/23 11:03 Ur Amphetamines Screen Detected (NotDetected) H 07/09/23 11:03 U Methamphetamines Scrn Detected (NotDetected) H 07/09/23 11:03 U Benzodiazepines Scrn Not Detected (NotDetected) 07/09/23 11:03 Urine Cocaine Screen Not Detected (NotDetected) 07/09/23 11:03 U Marijuana (THC) Screen Not Detected (NotDetected) 07/09/23 11:03 SARS-CoV-2 (PCR) Not Detected (Not Detectd) 07/09/23 13:44 07/10/23 12:34 IDENTIFYING DATA: Patient is a single, unemployed, 37-year-old male, currently lives with his friends in an apartment. HPI: Patient presented to the hospital through the ER yesterday presenting with psychiatric concerns. Patient apparently stated in the ER that he has been not been taking his psychiatric medications and not feeling himself lately. He was also endorsing a increase in his depression and anxiety lately. Urine drug screen is positive for amphetamines and methamphetamine. Patient has a history of several inpatient psychiatric hospitalizations for similar concerns. Patient was admitted voluntarily to the mental health unit. He was seen laying in his bed today and agreeable to speak to telegraphic typewriter operator. He states that he has been feeling more depressed lately, and has been endorsing increased anxiety. States that he has had multiple stressors lately however is fairly vague about them. He states that recently he lost his job, has been having legal issues and also financial difficulties. States that "everything has been getting to me" and states that he has "a lot going on". He claims that he has been feeling more irritable lately, has been drinking more. States that he been drinking about a pint of vodka a day. States that his last drink was before coming into the hospital. He denies any history of severe withdrawals however does explain that he is having some racing heart and also mild tremors. He does state that he smokes cigarettes regularly, denies any other recreational drug use and was fairly evasive about his urine drug screen and explained that he does occasional methamphetamine as well. States that his sleep has been poor lately, appetite has been poor. At this time he is denying any auditory or visual elucidation's. Denying any homicidal ideations. When asked about suicidal ideations he states that he is still having them however is not having any specific plan at this time. PAST PSYCHIATRIC HISTORY: Patient has a history of polysubstance abuse and depression, personality disorder. He has had numerous admissions to the psychiatric unit with his last admission, the mental health unit was in September 2022. Patient is supposed to be on Depakote, Remeron, Zyprexa however has been off his medications for about a month now. Patient is supposed be following up at [facility] with the nurse practitioner however has not been doing that. He does report prior attempts at suicide. PMH: as per ER note. ALLERGIES: NO KNOWN DRUG ALLERGIES CHEMICAL DEPENDENCY HISTORY: See HPI. FAMILY PSYCHIATRIC/SUBSTANCE USE HISTORY: No reported family psychiatric history SOCIAL HISTORY: Patient was born and raised in [place]. He is single, never , but has one 14-year-old son who lives with his son's mother. His mother is now . His father still alive. It was 12 grade education. He currently lives with his friends in an apartment. MENTAL STATUS EXAM: General Appearance: Patient appears to be well-built, several tattoos, has a brown, stated age is alert, directable, and attempts to cooperate. Patient appears to have fair hygiene and grooming. Behavior: Patient is laying in bed, appears to be mildly sedated. Attempts to cooperate. Speech: Patient's speech is fluent and nonpressured. Soft tone Mood/Affect: Patient reports their mood is depressed anxious, affect is congruent and constricted. Suicidality/Homicidality: Patient denies having any homicidal ideation intent or plan. However patient does endorse suicidal ideation, however does not have a plan. Perceptions: Patient denies any visual hallucinations and denies any auditory hallucinations Though content/process: There is no evidence of any delusional thought content and thought process is linear and goal-directed. [place] Memory and concentration: AOX3, grossly intact for the purposes of this session. Can spell "WORLD" backwards Judgment and insight: poor STRENGTHS/WEAKNESSES: strength is that patient is resilient, has housing. Weakness is that patient engages in polysubstance abuse and and has poor judgment. INTELLECT: average IMPRESSIONS: Major depressive disorder, recurrent, severe without psychotic features methamphetamine use disorder alcohol use disorder Nicotine dependence PLAN: -Patient is admitted under voluntary status to MHU for stabilization of psychiatric symptoms and safety. Patient signed adult voluntary form and medication consent and is placed in patient's chart. -Medications : Cymbalta 30 mg by mouth twice a day for depression Seroquel increased to 150 mg nightly for mood stabilization/sleep -CIWA protocol with as needed Ativan. Librium scheduled and will be tapered for alcohol withdrawal. Patient is refusing any alcohol cravings medications at this time. -Ativan and Haldol PRN for agitation/aggression -Continue thiamine, folic acid -Will speak to patient about potentially going to rehab versus outpatient substance use treatment. -Patient was informed of the risks, benefits and side effects of the medication and patient verbally consented to taking the medications. Patient signed med consent form and was placed in chart. -Internal Medicine consult to perform medical evaluation and physical. -NRT -nicotine gum and patch -SW on board for discharge planning. Encourage patient to participate in groups to work on coping skills. 07/10/23 13:47
[2023-07-10 16:22] LABS: Chol/HDL Ratio 2.16 Ratio; LDL Cholesterol,Calculated 48.3 mg/dL (0.0-131.0)
[2023-07-10] MEDS: GABAPENTIN 400 MG CAP PO PRN (18:33)
[2023-07-10] MEDS: IBUPROFEN 600 MG TAB PO PRN (18:33)
[2023-07-10] MEDS: LORazepam 1 MG TAB PO PRN ×2 (18:33→20:54)
[2023-07-10] MEDS: NICOTINE GUM (POLACRILEX) 2 MG GUM BUCCAL PRN ×2 (18:35→22:16)
[2023-07-10] MEDS: DULoxetine HCL 30 MG CAPSULE.DR PO SCH (20:53)
[2023-07-10] MEDS ORDERED: QUEtiapine 50 MG TAB PO SCH (21:00)
--- NOTE | 2023-07-10 22:49 | P.CONS ---
History of Present Illness - Reason for Consult Consult date: 07/10/23 - History of Present Illness The patient is a 37-year-old male with a PMH of polysubstance abuse including methamphetamine, alcohol abuse, well-known to this hospital presented to the emergency room with complaints of depression and not feeling quite like self. The patient was admitted to the mental health unit where he was seen and evaluated accompanied by the mental health unit RN [place]. Patient reports that he simply does not feel well and that needed to be checked into the hospital. He denied any physical complaints at the time of interview. He reports drinking a pint of hard liquor daily and smoking a pack of cigarettes. Denies any substance abuse however urine toxicology was positive for methamphetamines and amphetamines. Further laboratory evaluation was remarkable for AST 94, ALT 64, glucose 118. He did report occasional substernal chest discomfort, unable to quantify, occurring sporadically, without associated shortness of breath, nausea, diaphoresis, dizziness. Denied experiencing fever, chills, cough, nausea, vomiting, abdominal pain, diarrhea. Review of systems: Pertinent positives and negatives as discussed in HPI, a complete review of systems was performed and all other systems are negative. Physical examination: General: non toxic, no distress, appears at stated age, obese Derm: no unusual rashes/lesions, no unusual ecchymoses, warm, dry Head: atraumatic, normocephalic, symmetric Eyes: EOMI, no lid lag, anicteric sclera ENT: Nose and ears atraumatic, no thrush, no pharyngeal erythema Neck: trachea midline, supple Mouth: no lip lesion, mucus membranes moist Cardiovascular: S1S2 reg, no murmur, no edema Lungs: CTA bilateral, no rhonchi, no rales , no accessory muscle use Abdominal: soft, nontender to palpation, no guarding Ext: no gross muscle atrophy, no contractures, Neuro: No gross focal neuro deficits noted Psych: Alert, oriented, appropriate affect Assessment: Abnormal LFTs, likely due to ongoing alcohol abuse Polysubstance abuse including alcohol, methamphetamine, and tobacco Imaging: None performed Data Review: Laboratory evaluation revealed urine toxicology positive for methamphetamine with AST 94, ALT 64, glucose 118 with hemoglobin A1c 5.0. Plan: Advised on importance of cessation from substance use Monitor LFTs for improvement Thank you for allowing us to participate in the care of this patient. We will follow peripherally. Do not hesitate to contact us with questions. Someone can be reached from the [facility] hospitalist group at all hours of the day at [phone]. Past Medical History Past Medical History: Deep Vein Thrombosis (DVT), Thyroid Disorder Additional Past Medical History / Comment(s): ETOH abuse, past withdrawls with tremors/nausea/seizure, chronic low back pain, recent R knee/leg pain, DVT R leg, Catogory 5 blood disorder. History of Any Multi-Drug Resistant Organisms: None Reported Past Surgical History: Cholecystectomy, Orthopedic Surgery Additional Past Surgical History / Comment(s): right knee tendon surgery Past Anesthesia/Blood Transfusion Reactions: Motion Sickness Additional Past Anesthesia/Blood Transfusion Reaction / Comm: Clausterphobia. Past Psychological History: Anxiety, Bipolar, Depression Additional Psychological History / Comment(s): Pt states his depression has been increased lately. Smoking Status: Current every day smoker Past Alcohol Use History: Daily, Heavy Additional Past Alcohol Use History / Comment(s): Pt started smoking in 2001 and is a ppd smoker. Drinks about one fifth of vodka per day Past Drug Use History: Cocaine, Marijuana, Methamphetamine Additional Drug Use History / Comment(s): Current use of marijuana and alcohol methamphetamine and amphetamine. Hx of polysubstance abuse. - Past Family History Father History Unknown: Yes Family Medical History: CVA/TIA Additional Family Medical History / Comment(s): Unable to obtain family history secondary altered mentation Mother Family Medical History: Congestive Heart Failure (CHF) Medications and Allergies Home Medications Medication Instructions Recorded Confirmed Type Ondansetron Odt [Zofran Odt] 4 mg PO Q8HR PRN #10 tab 06/28/23 07/09/23 Rx DULoxetine HCL [Cymbalta] 30 mg PO DAILY 07/09/23 07/09/23 History Gabapentin [Neurontin] 400 mg PO DAILY PRN 07/09/23 07/09/23 History QUEtiapine [SEROquel] 100 mg PO HS 07/09/23 07/09/23 History Xanax(Unknown Dose) 1 tab PO DIRECTED PRN 07/09/23 07/09/23 History Allergies Allergy/AdvReac Type Severity Reaction Status Date / Time No Known Allergies Allergy Verified 07/09/23 14:24 Physical Exam Vitals: Vital Signs Temp Pulse Resp BP 07/10/23 06:45 97.7 F 88 16 117/64 Results CBC & Chem 7: 07/10/23 10:48 07/10/23 10:48 Labs: Abnormal Lab Results - Last 24 Hours (Table) 07/10/23 Range/Units 10:48 Glucose 118 H (74-99) mg/dL AST 94 H (17-59) U/L ALT 64 H (4-49) U/L HDL Cholesterol 63.50 H (40.00-60.00) mg/dL
[2023-07-11] MEDS: DULoxetine HCL 30 MG CAPSULE.DR PO SCH ×2 (08:32→19:47)
[2023-07-11] MEDS: NICOTINE GUM (POLACRILEX) 2 MG GUM BUCCAL PRN ×4 (08:32→18:20)
[2023-07-11] MEDS: GABAPENTIN 400 MG CAP PO PRN (08:34)
[2023-07-11] MEDS: NICOTINE 14MG/24HR PATCH TRANSDERM SCH (08:35)
[2023-07-11] MEDS: LORazepam 1 MG TAB PO PRN ×2 (11:59→20:41)
[2023-07-11] MEDS: IBUPROFEN 600 MG TAB PO PRN (12:00)
[2023-07-11 12:50] LABS: ALT 79 U/L (4-49); AST 89 U/L (17-59); African American GFR (CKD) >90 (>60 ml/min/1.73 sqM); Albumin 3.8 g/dL (3.5-5.0); Alkaline Phosphatase 84 U/L (38-126); Anion Gap 6 mmol/L; Blood Urea Nitrogen 9 mg/dL (9-20); Carbon Dioxide 25 mmol/L (22-30); Chloride 109 mmol/L (98-107); Glucose 93 mg/dL (74-99); Non-African American GFR(CKD) >90 (>60 ml/min/1.73 sqM); Potassium 4.4 mmol/L (3.5-5.1); Sodium 140 mmol/L (137-145); Total Bilirubin 0.6 mg/dL (0.2-1.3); Total Protein 6.2 g/dL (6.3-8.2)
--- NOTE | 2023-07-11 13:57 | P.PN ---
Progress Note - Text Progress Note Date: 07/11/23 Interval history: Patient was seen today laying in his bed reading a book and was agreeable to s peak to junior copywriter. He states that he is doing a bit better today. He appeared to be more awake today during conversation. States that he still feeling mild withdrawal symptoms however is fairly vague about it. States that his anxiety is still elevated. Claims that he is feeling a bit depressed. He was fairly vague about his living situation and where he will be able to go. He was refusing rehab at this time. Claims that he slept fairly last night however would like would like his Seroquel increased. Claims that he is not going to many groups, is up for meals and has been taking his medications not reporting any side effects. At this time he is denying any suicidal homicidal ideations intent or plan. Denying any auditory or visual hallucinations. MENTAL STATUS EXAM: General Appearance: Patient appears to be well-built, several tattoos, has a brown, stated age is alert, directable, and attempts to cooperate. Patient appears to have fair hygiene and grooming. Behavior: Patient is laying in bed, appears to be mildly sedated. Attempts to cooperate. Speech: Patient's speech is fluent and nonpressured. Soft tone Mood/Affect: Patient reports their mood is depressed anxious, improving, affect is congruent and constricted. Suicidality/Homicidality: Patient denies having any homicidal ideation intent or plan. However patient does endorse suicidal ideation, however does not have a plan. Perceptions: Patient denies any visual hallucinations and denies any auditory hallucinations Though content/process: There is no evidence of any delusional thought content and thought process is linear and goal-directed. [place], improving Memory and concentration: AOX3, grossly intact for the purposes of this session Judgment and insight: poor IMPRESSIONS: Major depressive disorder, recurrent, severe without psychotic features methamphetamine use disorder alcohol use disorder Nicotine dependence PLAN: -Patient is admitted under voluntary status to [facility]HU for stabilization of p sychiatric symptoms and safety. Patient signed adult voluntary form and medication consent and is placed in patient's chart. -Medications : Cymbalta 30 mg by mouth twice a day for depression, consider increasing tomorrow if needed Seroquel increased to 200 mg nightly for mood stabilization/sleep -CIWA protocol with as needed Ativan. Librium scheduled and will be tapered for alcohol withdrawal. Patient is refusing any alcohol cravings medications at this time. -Ativan and Haldol PRN for agitation/aggression -Continue thiamine, MVM -NRT -nicotine gum and patch -SW on board for discharge planning. Encourage patient to participate in groups to work on coping skills. Patient is refusing rehab at this time. Unclear if patient is homeless or has a place to go with his girlfriend or staying with a friend. Likely discharge early next week if patient continues to improve.
[2023-07-11] MEDS: THIAMINE 100 MG TAB PO SCH (15:44)
[2023-07-11] MEDS: MULTIVITAMINS, THERA 1 EACH TAB PO SCH (15:44)
[2023-07-11] MEDS: QUEtiapine 200 MG TAB PO SCH (19:46)
[2023-07-12] MEDS: MULTIVITAMINS, THERA 1 EACH TAB PO SCH (08:46)
[2023-07-12] MEDS: THIAMINE 100 MG TAB PO SCH (08:46)
[2023-07-12] MEDS: DULoxetine HCL 30 MG CAPSULE.DR PO SCH ×2 (08:46→19:43)
[2023-07-12] MEDS: GABAPENTIN 400 MG CAP PO PRN (08:47)
[2023-07-12] MEDS: NICOTINE GUM (POLACRILEX) 2 MG GUM BUCCAL PRN ×3 (08:48→19:02)
[2023-07-12] MEDS: LORazepam 1 MG TAB PO PRN ×2 (11:04→20:44)
--- NOTE | 2023-07-12 11:10 | P.PN ---
Progress Note - Text Progress Note Date: 07/12/23 Interval history: Patient was seen today laying in his bed and was agreeable to speak to insurance underwriter. He states that he is doing "alright" today. States that he still feeling mild withdrawal symptoms however is fairly vague about it. States that his anxiety is "still there". He states that he is "working on" his living situation. endorsing midl withdrawal sx. Claims that he slept fairly last night with the seroquel. Claims that he is not going to many groups, is up for meals and has been taking his medications not reporting any side effects. At this time he is denying any suicidal homicidal ideations intent or plan. Denying any auditory or visual hallucinations. MENTAL STATUS EXAM: General Appearance: Patient appears to be well-built, several tattoos, has a brown, stated age is alert, directable, and attempts to cooperate. Patient appears to have fair hygiene and grooming. Behavior: Patient is laying in bed, appears to be mildly sedated. Attempts to cooperate. Speech: Patient's speech is fluent and nonpressured. Soft tone, improving Mood/Affect: Patient reports their mood is depressed anxious, improving mildly, affect is congruent and constricted. Suicidality/Homicidality: Patient denies having any homicidal or suicidal ideation at this time. Perceptions: Patient denies any visual hallucinations and denies any auditory hallucinations Though content/process: There is no evidence of any delusional thought content and thought process is linear and goal-directed. [place], mildly improving Memory and concentration: AOX3, grossly intact for the purposes of this session Judgment and insight: poor, imrpoving mildly IMPRESSIONS: Major depressive disorder, recurrent, severe without psychotic features methamphetamine use disorder alcohol use disorder Nicotine dependence PLAN: -Patient is admitted under voluntary status to [facility]HU for stabilization of psychiatric symptoms and safety. Patient signed adult voluntary form and medication consent and is placed in patient's chart. -Medications : -Cymbalta 30 mg by mouth twice a day for depression. -Seroquel continued at 200 mg nightly for mood stabilization/sleep -CIWA protocol with as needed Ativan. -decreasing Librium scheduled 10mg tid for alcohol withdrawal. Patient is refusing any alcohol cravings medications at this time. -Ativan and Haldol PRN for agitation/aggression -Continue thiamine, MVM -NRT -nicotine gum and patch -SW on board for discharge planning. Encourage patient to participate in groups to work on coping skills. Patient is refusing rehab at this time. Unclear if patient is homeless or has a place to go with his girlfriend or staying with a friend. Likely discharge Saturday-sat
[2023-07-12] MEDS ORDERED: PSEUDOEPHEDRINE 12HR 120 MG TABLET.ER PO SCH (11:30)
[2023-07-12] MEDS: ACETAMINOPHEN TAB 325 MG TAB PO PRN (11:43)
[2023-07-12] MEDS: PSEUDOEPHEDRINE 30 MG TAB PO SCH ×3 (12:36→20:44)
[2023-07-12] MEDS: QUEtiapine 200 MG TAB PO SCH (19:43)
[2023-07-13] MEDS: NICOTINE 14MG/24HR PATCH TRANSDERM SCH (08:26)
[2023-07-13] MEDS: THIAMINE 100 MG TAB PO SCH (08:26)
[2023-07-13] MEDS: PSEUDOEPHEDRINE 30 MG TAB PO SCH ×4 (08:26→21:03)
[2023-07-13] MEDS: DULoxetine HCL 30 MG CAPSULE.DR PO SCH (08:26)
[2023-07-13] MEDS: MULTIVITAMINS, THERA 1 EACH TAB PO SCH (08:26)
--- NOTE | 2023-07-13 10:34 | P.PN ---
Progress Note - Text Progress Note Date: 07/13/23 Interval history: Patient was seen today laying in his bed and was agreeable to speak to jingle writer. He states that he is doing "alright" today claims that he is doing a bit better compared to yesterday. He was fairly concrete today, did not report any problems last night. He has been reading books mainly keeping himself in his room.. Claims that he feels that he is not having withdrawal symptoms any longer. Claims that he slept fairly last night with the seroquel. Claims that he is not going to many groups, is up for meals and has been taking his medications not reporting any side effects. At this time he is denying any suicidal homicidal ideations intent or plan. Denying any auditory or visual hallucinations. MENTAL STATUS EXAM: General Appearance: Patient appears to be well-built, several tattoos, has a brown, stated age is alert, directable, and attempts to cooperate. Patient appears to have fair hygiene and grooming. Behavior: Patient is laying in bed, appears to be mildly sedated. Attempts to cooperate, improving. Speech: Patient's speech is fluent and nonpressured. Soft tone, improving Mood/Affect: Patient reports their mood is improving mildly, affect is congruent and constricted. Suicidality/Homicidality: Patient denies having any homicidal or suicidal idea tion at this time. Perceptions: Patient denies any visual hallucinations and denies any auditory hallucinations Though content/process: There is no evidence of any delusional thought content and thought process is linear and goal-directed. [place], mildly improving Memory and concentration: AOX3, grossly intact for the purposes of this session Judgment and insight: imrpoving mildly IMPRESSIONS: Major depressive disorder, recurrent, severe without psychotic features methamphetamine use disorder alcohol use disorder Nicotine dependence PLAN: -Patient is admitted under voluntary status to [facility] for stabilization of psychiatric symptoms and safety. Patient signed adult voluntary form and medication consent and is placed in patient's chart. -Medications : -increase Cymbalta 30 mg daily + 60 mg qhs for depression. -Seroquel 200 mg nightly for mood stabilization/sleep -CIWA d/c -decreasing Librium for alcohol withdrawal will taper off by tomorrow. Patient is refusing any alcohol cravings medications at this time. -Ativan and Haldol PRN for agitation/aggression -Continue thiamine, MVM -NRT -nicotine gum and patch -SW on board for discharge planning. Encourage patient to participate in groups to work on coping skills. Patient is refusing rehab at this time. Unclear if patient is homeless or has a place to go with his girlfriend or staying with a friend. Likely discharge Saturday-sat
[2023-07-13] MEDS: NICOTINE GUM (POLACRILEX) 2 MG GUM BUCCAL PRN ×4 (10:41→22:24)
[2023-07-13] MEDS: IBUPROFEN 600 MG TAB PO PRN (10:41)
[2023-07-13] MEDS: GABAPENTIN 400 MG CAP PO PRN (10:41)
[2023-07-13] MEDS: LORazepam 1 MG TAB PO PRN ×2 (13:38→21:04)
[2023-07-13] MEDS: ACETAMINOPHEN TAB 325 MG TAB PO PRN (18:18)
[2023-07-13] MEDS: QUEtiapine 200 MG TAB PO SCH (19:35)
[2023-07-13] MEDS ORDERED: DULoxetine HCL 60 MG CAPSULE.DR PO SCH (21:00)
[2023-07-14 06:28] VITALS: RESP 18; TEMP 98
[2023-07-14] MEDS: THIAMINE 100 MG TAB PO SCH (08:31)
[2023-07-14] MEDS: PSEUDOEPHEDRINE 30 MG TAB PO SCH ×4 (08:31→20:48)
[2023-07-14] MEDS: MULTIVITAMINS, THERA 1 EACH TAB PO SCH (08:31)
[2023-07-14] MEDS: NICOTINE 14MG/24HR PATCH TRANSDERM SCH (08:32)
[2023-07-14] MEDS ORDERED: DULoxetine HCL 30 MG CAPSULE.DR PO SCH (09:00)
[2023-07-14] MEDS: GABAPENTIN 400 MG CAP PO PRN (10:49)
[2023-07-14] MEDS: NICOTINE GUM (POLACRILEX) 2 MG GUM BUCCAL PRN ×4 (10:49→19:12)
[2023-07-14] MEDS ORDERED: DULoxetine HCL 60 MG CAPSULE.DR PO ONE (11:23)
--- NOTE | 2023-07-14 11:26 | P.PN ---
Progress Note - Text Progress Note Date: 07/14/23 Interval history: Patient was seen today laying in his bed and was agreeable to speak to news writer. Patient appears to be less sedated today. He continues to mainly keep to himself on the unit. He states that he is doing a bit better today overall. Claims that he does not know where he will go upon discharge. States that he may go to [facility] as his kids currently lives there. States that his mood and anxiety have been mildly improving. We spoke about changing the dosing schedule of Cymbalta which she is okay with taking it during the day. Claims that he is sleeping a bit better at nighttime. Has a fair appetite. Claims that he is not going to many groups, is up for meals and has been taking his medications not reporting any side effects. At this time he is denying any suicidal homicidal ideations intent or plan. Denying any auditory or visual hallucinations. MENTAL STATUS EXAM: General Appearance: Patient appears to be well-built, several tattoos, has a brown, stated age is alert, directable, and attempts to cooperate. Patient appears to have fair hygiene and grooming. Behavior: Patient is laying in bed, appears to be mildly sedated. Attempts to cooperate, improving. Speech: Patient's speech is fluent and nonpressured. Soft tone, improving Mood/Affect: Patient reports their mood is improving mildly, affect is congruent and constricted. Suicidality/Homicidality: Patient denies having any homicidal or suicidal ideation at this time. Perceptions: Patient denies any visual hallucinations and denies any auditory hallucinations Though content/process: There is no evidence of any delusional thought content and thought process is linear and goal-directed. [place], mildly improving Memory and concentration: AOX3, grossly intact for the purposes of this session Judgment and insight: imrpoving mildly IMPRESSIONS: Major depressive disorder, recurrent, severe without psychotic features methamphetamine use disorder alcohol use disorder Nicotine dependence PLAN: -Patient is admitted under voluntary status to [facility]HU for stabilization of psychiatric symptoms and safety. Patient signed adult voluntary form and medication consent and is placed in patient's chart. -Medications : -Changed Cymbalta 90 mg daily for depression/anxiety. -Seroquel 200 mg nightly for mood stabilization/sleep -decreasing Librium for alcohol withdrawal will taper off by tomorrow. Patient is refusing any alcohol cravings medications at this time. -Ativan and Haldol PRN for agitation/aggression -Continue thiamine, MVM -NRT -nicotine gum and patch -SW on board for discharge planning. Encourage patient to participate in groups to work on coping skills. Patient is refusing rehab at this time. Unclear if patient is homeless or has a place to go with his girlfriend or staying with a friend or going to [facility]. Likely discharge Saturday-sat
[2023-07-14] MEDS: LORazepam 1 MG TAB PO PRN ×2 (12:45→20:48)
[2023-07-14] MEDS: hydrOXYzine pamoate 25 MG CAP PO PRN ×2 (13:04→19:12)
[2023-07-14] MEDS: QUEtiapine 200 MG TAB PO SCH (20:48)
[2023-07-15] MEDS: NICOTINE GUM (POLACRILEX) 2 MG GUM BUCCAL PRN ×6 (00:17→23:56)
[2023-07-15 00:24] VITALS: BP 113/76; PULSE 90
[2023-07-15] MEDS: PSEUDOEPHEDRINE 30 MG TAB PO SCH ×4 (06:13→21:12)
[2023-07-15] MEDS: NICOTINE 14MG/24HR PATCH TRANSDERM SCH (08:28)
[2023-07-15] MEDS: THIAMINE 100 MG TAB PO SCH (08:29)
[2023-07-15] MEDS: MULTIVITAMINS, THERA 1 EACH TAB PO SCH (08:30)
[2023-07-15] MEDS: GABAPENTIN 400 MG CAP PO PRN (08:31)
[2023-07-15] MEDS ORDERED: DULoxetine HCL 30 MG CAPSULE.DR PO SCH (09:00)
--- NOTE | 2023-07-15 14:33 | P.PN ---
Progress Note - Text Progress Note Date: 07/15/23 Interval history: Patient was seen today laying in his bed and was agreeable to speak to marketing underwriter. he states that he is doing a bit better today. denies any anxiety. He continues to mainly keep to himself on the unit. He states that he is doing a bit better today overall. He states that he would like to be discharged to his friend's house. He did not give specific details of who they are or what their phone numbers. He states that he will also take care home information. He did endorse some anxiety today. He claims that he has been socializing with others on the unit. States that his sleep did improve mildly. He continues to be focused on Neurontin. He was mildly irritable today, appears to be more impulsive. At this time he is denying any suicidal homicidal ideations intent or plan. Denying any auditory or visual hallucinations. MENTAL STATUS EXAM: General Appearance: Patient appears to be well-built, several tattoos, has a brown, stated age is alert, directable, and attempts to cooperate. Patient appears to have fair hygiene and grooming. Behavior: Patient is laying in bed, appears to be mildly sedated. Attempts to cooperate, improving Speech: Patient's speech is fluent and nonpressured, improving Mood/Affect: Patient reports their mood is improving mildly, affect is congruent and constricted Suicidality/Homicidality: Patient denies having any homicidal or suicidal ideation at this time Perceptions: Patient denies any visual hallucinations and denies any auditory hallucinations Though content/process: There is no evidence of any delusional thought content and thought process is linear and goal-directed. [place], mildly improving. Focused on discharge. Memory and concentration: AOX3, grossly intact for the purposes of this session Judgment and insight: Poor, improving mildly IMPRESSIONS: Major depressive disorder, recurrent, severe without psychotic features methamphetamine use disorder alcohol use disorder Nicotine dependence PLAN: -Patient is admitted under voluntary status to MHU for stabilization of psychiatric symptoms and safety. Patient signed adult voluntary form and medication consent and is placed in patient's chart. -Medications : -increased Cymbalta 120 mg daily for depression/anxiety -Seroquel 200 mg nightly for mood stabilization/sleep -d/c Librium -Ativan and Haldol PRN for agitation/aggression -Continue thiamine, MVM -NRT -nicotine gum and patch -SW on board for discharge planning. Encourage patient to participate in groups to work on coping skills. Patient is refusing rehab at this time. Unclear if patient is homeless or will be staying with his friend. will give care home information.
[2023-07-15] MEDS: QUEtiapine 200 MG TAB PO SCH (19:56)
[2023-07-15] MEDS: LORazepam 1 MG TAB PO PRN (21:12)
[2023-07-16] MEDS: THIAMINE 100 MG TAB PO SCH (08:20)
[2023-07-16] MEDS: MULTIVITAMINS, THERA 1 EACH TAB PO SCH (08:20)
[2023-07-16] MEDS: PSEUDOEPHEDRINE 30 MG TAB PO SCH (08:21)
[2023-07-16] MEDS: NICOTINE 14MG/24HR PATCH TRANSDERM SCH (08:21)
[2023-07-16] MEDS: NICOTINE GUM (POLACRILEX) 2 MG GUM BUCCAL PRN (08:22)
[2023-07-16] MEDS ORDERED: DULoxetine HCL 60 MG CAPSULE.DR PO SCH (09:00)
--- NOTE | 2023-07-16 09:39 | P.DS ---
Providers Date of admission: 07/09/23 18:25 Expected date of discharge: 07/16/23 Attending physician: Eugene Mantilla MD Consults: 07/09/23 18:34 Consult Physician Routine Consulting Provider: Kelly Physician Consult Reason/Comments: H&P and medical Do you want consulting provider notified?: Yes Primary care physician: Stated None - Discharge Diagnosis(es) (1) Major depressive disorder, recurrent severe without psychotic features Current Visit: Yes Status: Acute Priority: High (2) Methamphetamine use disorder, moderate Current Visit: Yes Status: Acute Priority: High (3) Alcohol use disorder Current Visit: Yes Status: Acute Priority: High (4) Nicotine dependence Current Visit: Yes Status: Acute Priority: Low Hospital Course: Admission HPI: Admission note was completed by marketing writer "Patient presented to the hospital through the ER yesterday presenting with psychiatric concerns. Patient apparently stated in the ER that he has been not been taking his psychiatric medications and not feeling himself lately. He was also endorsing a increase in his depression and anxiety lately. Urine drug screen is positive for amphetamines and methamphetamine. Patient has a history of several inpatient psychiatric hospitalizations for similar concerns. Patient was admitted voluntarily to the mental health unit. He was seen laying in his bed today and agreeable to speak to marketing writer. He states that he has been feeling more depressed lately, and has been endorsing increased anxiety. States that he has had multiple stressors lately however is fairly vague about them. He states that recently he lost his job, has been having legal issues and also financial difficulties. States that "everything has been getting to me" and states that he has "a lot going on". He claims that he has been feeling more irritable lately, has been drinking more. States that he been drinking about a pint of vodka a day. States that his last drink was before coming into the hospital. He denies any history of severe withdrawals however does explain that he is having some racing heart and also mild tremors. He does state that he smokes cigarettes regularly, denies any other recreational drug use and was fairly evasive about his urine drug screen and explained that he does occasional methamphetamine as well. States that his sleep has been poor lately, appetite has been poor. At this time he is denying any auditory or visual elucidation's. Denying any homicidal ideations. When asked about suicidal ideations he states that he is still having them however is not having any specific plan at this time." Hospital course: Upon admission to the unit patient was directable and agreeable to commence treatment and signed adult voluntary form. Patient mainly kept to himself while on the unit got along well with other patients on the unit and followed unit protocol. Patient was compliant with the medications and denied any side effects throughout hospital course. Patient was started on Cymbalta and increase the dose of 120 mg daily for mood/anxiety, Seroquel 200 mg nightly for mood stabilization/sleep. Patient was placed on scheduled Librium and as needed Ativan for alcohol withdrawal, Librium was gradually discontinued.. Patient was offered alcohol cravings medication however he declined it. Patient spoke of his stressors and engaged in therapy both group and individual. Patient was also seen by medical team for history and physical exam. Throughout the course of the hospitalization patient gradually improved with regards to mood, anxiety, sleep and returned back to their baseline level of functioning. On the day of discharge patient denied any suicidal or homicidal ideations intent or plan denied any auditory or visual hallucinations. Patient endorsed wanting to live for his health and family. The patient denied any access to guns or weapons. Patient denied any paranoia and did not endorse any delusions. Patient does have a significant history of substance abuse and was counseled on abstaining from all substances including alcohol and marijuana. Patient was offered however declined inpatient substance-abuse rehab. Patient elected to do outpatient substance use treatment program through [facility]. Patient was also counseled on the medications and need for regular compliance and was encouraged to follow-up with their outpatient appointment for mental health and also for primary care. Patient will be discharged today either to a friend's house versus longterm with [facility] follow-up. Mental status exam: General Appearance: Patient appears to be mildly overweight, brown, stated age is alert, pleasant, and cooperative. Patient is in no acute distress and has improved hygiene and grooming Behavior: Patient is calmly seated without any agitated behavior. Speech: Patient's speech is fluent and nonpressured. Mood/Affect: Patient reports their mood is "better", affect is congruent and euthymic. Suicidality/Homicidality: Patient denies having any suicidal or homicidal ideation intent or plan. Perceptions: Patient denies any auditory or visual hallucinations. Though content/process: There is no evidence of any delusional thought content and thought process is linear and goal-directed. More future oriented Memory and concentration: AOX3, grossly intact for the purposes of this session. Can spell "WORLD" backwards correctly. Judgment and insight: Chronically poor, however has improved with guarded prognosis Impression: Major depressive disorder, recurrent, severe without psychotic features methamphetamine use disorder alcohol use disorder Nicotine dependence Plan: -Continue with discharge today as patient has improved and stabilized psychiatrically and is not currently an imminent threat to himself and/or others. Patient will remain at chronically elevated risk for harm to self and/or others due to his impulsivity and polysubstance abuse. -Continue medications: Cymbalta 120 mg daily for depression/anxiety, Seroquel 200 mg nightly for mood stabilization/sleep. -Patient was counseled on the need for medication compliance and appropriate follow-up at mental health and also primary care for medical issues. Patient verbalized understanding and agreed. -Social work to help coordinate patient's discharge today to longterm versus going to a friend's house. Social work also to arrange for patients follow up appointments with [facility] for psychiatric care along with follow up with primary care provider. -Patient counseled on abstaining from recreational drugs and marijuana and alcohol. Was informed/educated on the adverse effects on their physical and mental health. Patient verbally agreed and understood. Patient was offered substance abuse treatment however declined at this time. -Patient was instructed to return to the hospital or seek immediate medical care if their psychiatric or medical symptoms do worsen or reoccur. Allergies Allergy/AdvReac Type Severity Reaction Status Date / Time No Known Allergies Allergy Verified 07/09/23 14:24 Laboratory Results WBC 8.0 k/uL (3.8-10.6) 07/10/23 10:48 RBC 4.89 m/uL (4.30-5.90) 07/10/23 10:48 Hgb 15.7 gm/dL (13.0-17.5) 07/10/23 10:48 Hct 45.9 % (39.0-53.0) 07/10/23 10:48 MCV 94.0 fL (80.0-100.0) 07/10/23 10:48 MCH 32.1 pg (25.0-35.0) 07/10/23 10:48 MCHC 34.1 g/dL (31.0-37.0) 07/10/23 10:48 RDW 12.8 % (11.5-15.5) 07/10/23 10:48 Plt Count 225 k/uL (150-450) 07/10/23 10:48 MPV 7.6 07/10/23 10:48 Neutrophils % 83 % 07/10/23 10:48 Lymphocytes % 12 % 07/10/23 10:48 Monocytes % 3 % 07/10/23 10:48 Eosinophils % 1 % 07/10/23 10:48 Basophils % 0 % 07/10/23 10:48 Neutrophils # 6.6 k/uL (1.3-7.7) 07/10/23 10:48 Lymphocytes # 1.0 k/uL (1.0-4.8) 07/10/23 10:48 Monocytes # 0.3 k/uL (0-1.0) 07/10/23 10:48 Eosinophils # 0.1 k/uL (0-0.7) 07/10/23 10:48 Basophils # 0.0 k/uL (0-0.2) 07/10/23 10:48 Sodium 140 mmol/L (137-145) 07/11/23 11:43 Potassium 4.4 mmol/L (3.5-5.1) 07/11/23 11:43 Chloride 109 mmol/L (98-107) H 07/11/23 11:43 Carbon Dioxide 25 mmol/L (22-30) 07/11/23 11:43 Anion Gap 6 mmol/L 07/11/23 11:43 BUN 9 mg/dL (9-20) 07/11/23 11:43 Creatinine 0.76 mg/dL (0.66-1.25) 07/11/23 11:43 Est GFR (CKD-EPI)AfAm >90 (>60 ml/min/1.73 sqM) 07/11/23 11:43 Est GFR (CKD-EPI)NonAf >90 (>60 ml/min/1.73 sqM) 07/11/23 11:43 Glucose 93 mg/dL (74-99) 07/11/23 11:[address] Glu mg/dL 97 mg/dL 07/10/23 10:48 Hemoglobin A1c 5.0 % (<=6.0) 07/10/23 10:48 Calcium 9.0 mg/dL (8.4-10.2) 07/11/23 11:43 Total Bilirubin 0.6 mg/dL (0.2-1.3) 07/11/23 11:43 AST 89 U/L (17-59) H 07/11/23 11:43 ALT 79 U/L (4-49) H 07/11/23 11:43 Alkaline Phosphatase 84 U/L (38-126) 07/11/23 11:43 Total Protein 6.2 g/dL (6.3-8.2) L 07/11/23 11:43 Albumin 3.8 g/dL (3.5-5.0) 07/11/23 11:43 Triglycerides 126.00 mg/dL (0.00-149.00) 07/10/23 10:48 Cholesterol 137.00 mg/dL (0.00-200.00) 07/10/23 10:48 LDL Cholesterol, Calc 48.3 mg/dL (0.0-131.0) 07/10/23 10:48 VLDL Cholesterol, Calc 25.20 mg/dL (5.00-40.00) 07/10/23 10:48 HDL Cholesterol 63.50 mg/dL (40.00-60.00) H 07/10/23 10:48 Cholesterol/HDL Ratio 2.16 Ratio 07/10/23 10:48 TSH 0.791 mIU/L (0.465-4.680) 07/10/23 10:48 Urine Opiates Screen Not Detected (NotDetected) 07/09/23 11:03 Ur Oxycodone Screen Not Detected (NotDetected) 07/09/23 11:03 Urine Methadone Screen Not Detected (NotDetected) 07/09/23 11:03 Ur Barbiturates Screen Not Detected (NotDetected) 07/09/23 11:03 U Tricyclic Antidepress Not Detected (NotDetected) 07/09/23 11:03 Ur Phencyclidine Scrn Not Detected (NotDetected) 07/09/23 11:03 Ur Amphetamines Screen Detected (NotDetected) H 07/09/23 11:03 U Methamphetamines Scrn Detected (NotDetected) H 07/09/23 11:03 U Benzodiazepines Scrn Not Detected (NotDetected) 07/09/23 11:03 Urine Cocaine Screen Not Detected (NotDetected) 07/09/23 11:03 U Marijuana (THC) Screen Not Detected (NotDetected) 07/09/23 11:03 Influenza Type A (PCR) Not Detected (Not Detectd) 07/12/23 11:40 Influenza Type B (PCR) Not Detected (Not Detectd) 07/12/23 11:40 RSV (PCR) Not Detected (Not Detectd) 07/12/23 11:40 SARS-CoV-2 (PCR) Not Detected (Not Detectd) 07/12/23 11:40 Vital Signs Temp 98.0 F 07/15/23 00:18 Pulse 90 07/15/23 00:18 Resp 18 07/15/23 00:18 BP 113/76 07/15/23 00:18 Pulse Ox 98 07/15/23 00:18 FiO2 Patient Condition at Discharge: Stable Plan - Discharge Summary Discharge Rx Participant: Yes New Discharge Prescriptions: New QUEtiapine [SEROquel] 200 mg PO HS 30 Days #30 tab Thiamine [Vitamin B-1] 100 mg PO DAILY 30 Days #30 tab DULoxetine HCL [Cymbalta] 120 mg PO DAILY 30 Days #60 cap Nicotine 14Mg/24Hr Patch [Habitrol] 1 patch TRANSDERM DAILY 14 Days #14 patch Multivitamins, Thera [Multivitamin (formulary)] 1 each PO DAILY 30 Days #30 tab Nicotine Gum (Polacrilex) [Nicorette] 2 mg BUCCAL Q2HR PRN #180 pieceofgum PRN Reason: Nicotine Cravings hydrOXYzine pamoate [Vistaril] 50 mg PO DAILY PRN 14 Days #28 cap PRN Reason: Agitation Or Acute Anxiety Continue Gabapentin [Neurontin] 400 mg PO DAILY PRN 3 Days #3 cap PRN Reason: Pain Discontinued Ondansetron Odt [Zofran Odt] 4 mg PO Q8HR PRN #10 tab PRN Reason: Nausea Xanax(Unknown Dose) 1 tab PO DIRECTED PRN PRN Reason: Anxiety QUEtiapine [SEROquel] 100 mg PO HS DULoxetine HCL [Cymbalta] 30 mg PO DAILY Discharge Medication List DULoxetine HCL [Cymbalta] 120 mg PO DAILY 30 Days #60 cap 07/16/23 [Rx] Gabapentin [Neurontin] 400 mg PO DAILY PRN 3 Days #3 cap 07/16/23 [Rx] Multivitamins, Thera [Multivitamin (formulary)] 1 each PO DAILY 30 Days #30 tab 07/16/23 [Rx] Nicotine 14Mg/24Hr Patch [Habitrol] 1 patch TRANSDERM DAILY 14 Days #14 patch 07/16/23 [Rx] Nicotine Gum (Polacrilex) [Nicorette] 2 mg BUCCAL Q2HR PRN #180 pieceofgum 07/16/23 [Rx] QUEtiapine [SEROquel] 200 mg PO HS 30 Days #30 tab 07/16/23 [Rx] Thiamine [Vitamin B-1] 100 mg PO DAILY 30 Days #30 tab 07/16/23 [Rx] hydrOXYzine pamoate [Vistaril] 50 mg PO DAILY PRN 14 Days #28 cap 07/16/23 [Rx] Follow up Appointment(s)/Referral(s): None,Stated [Primary Care Provider] - 1-2 days Activity/Diet/Wound Care/Special Instructions: Avoid the use of street drugs and alcohol. Take all medications as prescribed. When you are in need of refills on your medications, please contact your medical provider and/or outpatient psychiatrist/provider to have this done. Please go to your scheduled outpatient appointment for aftercare treatment. If symptoms return or become worse, call the crisis line at and/or go to the nearest emergency room for evaluation. National Suicide Hotline 988. Discharge/Stand Alone Forms: AA Meetings [place] [facility] Discharge Disposition: HOME SELF-CARE
== END 2023-07-16 11:58 | disposition home or self-care (01) | DRG 751 ==
LOC: EC 00:37 → 3MHU 18:25
PROVIDERS: ADMIT Psychiatry & Neurology Psychiatry; ATTEND Psychiatry & Neurology Psychiatry
DX: F33.2 Major depressive disorder, recurrent severe without psychotic features (principal); R45.851 Suicidal ideations; F15.20 Other stimulant dependence, uncomplicated; F10.20 Alcohol dependence, uncomplicated; Z11.52 Encounter for screening for COVID-19; E07.9 Disorder of thyroid, unspecified; G89.29 Other chronic pain; M54.50 Low back pain, unspecified; F41.9 Anxiety disorder, unspecified; M79.606 Pain in leg, unspecified; F17.210 Nicotine dependence, cigarettes, uncomplicated; Z71.6 Tobacco abuse counseling; Z79.899 Other long term (current) drug therapy; Z56.0 Unemployment, unspecified; Z59.86 Financial insecurity; Z59.01 Sheltered homelessness; Z59.6 Low income; Z71.51 Drug abuse counseling and surveillance of drug abuser; Z71.41 Alcohol abuse counseling and surveillance of alcoholic; Z86.718 Personal history of other venous thrombosis and embolism
CPT/HCPCS: 80053; 80061; 80306; 82075; 83036; 84443; 85025; 87635; 87636; 99285

== ENCOUNTER 2023-08-01 21:43 | Inpatient (IN) | payer MEDICAID, OTHER ==
--- NOTE | 2023-08-01 22:26 | ED ---
Nausea/Vomiting/Diarrhea HPI - General Chief complaint: Nausea/Vomiting/Diarrhea Stated complaint: N/V/D abd and back pain Source: patient, RN notes reviewed, old records reviewed Mode of arrival: wheelchair Limitations: no limitations - History of Present Illness Initial comments: This is a 37 male to the ED for NVD patient has history of alcoholism presents today for significant alcohol intoxication, unable to provide history secondary to level of intoxication MD complaint: nausea, vomiting, abdominal pain Description of Vomiting: food contents Description of Diarrhea: water Location: diffuse Radiation: none Severity scale (1-10): 3 Quality: aching Consistency: constant Improves with: none Worsens with: none Associated Symptoms: loss of appetite, malaise, nausea/vomiting - Related Data Previous Rx's Medication Instructions Recorded DULoxetine HCL [Cymbalta] 90 mg PO DAILY 30 Days #90 cap 08/07/23 Folic Acid 1 mg PO DAILY tab 08/07/23 Gabapentin [Neurontin] 400 mg PO DAILY 3 Days #3 cap 08/07/23 Ibuprofen [Motrin] 600 mg PO Q6HR PRN tab 08/07/23 Multivitamins, Thera [Multivitamin 1 each PO DAILY tab 08/07/23 (formulary)] Nicotine Gum (Polacrilex) 2 mg BUCCAL Q4HR PRN 30 Days #180 08/07/23 [Nicorette] pieceofgum QUEtiapine [SEROquel] 200 mg PO HS 30 Days #30 tab 08/07/23 Thiamine [Vitamin B-1] 100 mg PO DAILY tab 08/07/23 Allergies Allergy/AdvReac Type Severity Reaction Status Date / Time No Known Allergies Allergy Verified 08/02/23 17:55 Review of Systems ROS Statement: Those systems with pertinent positive or pertinent negative responses have been documented in the HPI. ROS Other: All systems not noted in ROS Statement are negative. Past Medical History Past Medical History: Deep Vein Thrombosis (DVT), Thyroid Disorder Additional Past Medical History / Comment(s): ETOH abuse, past withdrawls with tremors/nausea/seizure, chronic low back pain, recent R knee/leg pain, DVT R leg, Catogory 5 blood disorder. History of Any Multi-Drug Resistant Organisms: None Reported Past Surgical History: Cholecystectomy, Orthopedic Surgery Additional Past Surgical History / Comment(s): right knee tendon surgery Past Anesthesia/Blood Transfusion Reactions: Motion Sickness Additional Past Anesthesia/Blood Transfusion Reaction / Comment(s): Clausterphobia. Past Psychological History: Anxiety, Bipolar, Depression Smoking Status: Current every day smoker Past Alcohol Use History: Daily, Heavy Past Drug Use History: Cocaine, Marijuana, Methamphetamine - Past Family History Father History Unknown: Yes Family Medical History: CVA/TIA Additional Family Medical History / Comment(s): Unable to obtain family history secondary altered mentation Mother Family Medical History: Congestive Heart Failure (CHF) General Exam Limitations: no limitations General appearance: alert, in no apparent distress Head exam: Present: atraumatic, normocephalic, normal inspection Eye exam: Present: normal appearance, PERRL, EOMI. Absent: scleral icterus, conjunctival injection, periorbital swelling ENT exam: Present: normal exam, mucous membranes moist Neck exam: Present: normal inspection. Absent: tenderness, meningismus, lymp hadenopathy Respiratory exam: Present: normal lung sounds bilaterally. Absent: respiratory distress, wheezes, rales, rhonchi, stridor Cardiovascular Exam: Present: regular rate, normal rhythm, normal heart sounds. Absent: systolic murmur, diastolic murmur, rubs, gallop, clicks GI/Abdominal exam: Present: soft, normal bowel sounds. Absent: distended, tenderness, guarding, rebound, rigid Extremities exam: Present: normal inspection, full ROM, normal capillary refill. Absent: tenderness, pedal edema, joint swelling, calf tenderness Back exam: Present: normal inspection Neurological exam: Present: alert, oriented X3, CN II-XII intact Psychiatric exam: Present: normal affect, normal mood Skin exam: Present: warm, dry, intact, normal color. Absent: rash Course Vital Signs 08/01/23 08/02/23 08/02/23 21:57 03:10 05:34 Temperature 97.6 F 97.6 F Pulse Rate 85 95 98 Pulse Rate [ Left Sitting] Respiratory 18 16 20 Rate Blood Pressure 134/90 121/86 123/72 Blood Pressure [Right Arm Sitting] O2 Sat by Pulse 98 97 97 Oximetry 08/02/23 08/02/23 08/02/23 08:54 16:29 16:54 Temperature 99 F 97.4 F L Pulse Rate 99 101 H Pulse Rate [ 105 H Left Sitting] Respiratory 18 18 18 Rate Blood Pressure 125/82 171/102 Blood Pressure 145/90 [Right Arm Sitting] O2 Sat by Pulse 98 97 100 Oximetry - Reevaluation(s) Reevaluation #1: 08/01/23 22:[address] Lopez Reevaluation #2: 08/02/23 01:45 Medically cleared for psychiatric evaluation at Reevaluation #3: Patient remains altered here in the ER patient informed of results and questions answered Reevaluation #4: Was pt. sent in by a medical professional or institution (, JOANA, [employer]UG BACKING STENCILER, urgent care, hospital, or correction...) When possible be specific @ -no Did you speak to anyone other than the patient for history (EMS, parent, family, police, friend...)? What history was obtained from this source @ -no Did you review nursing and triage notes (agree or disagree)? Why? @ -agree Are old charts reviewed (outside hosp., previous admission, EMS record, old EKG, old radiological studies, urgent care reports/EKG's, correction records)? Report findings @ -yes Differential Diagnosis (chest pain, altered mental status, abdominal pain women, abdominal pain men, vaginal bleeding, weakness, fever, dyspnea, syncope, headache, dizziness, GI bleed, back pain, seizure, CVA, palpatations, mental health, musculoskeletal)? @ -prior EKG interpreted by me (3pts min.). @ -no X-rays interpreted by me (1pt min.). @ -no CT interpreted by me (1pt min.). @ -no U/S interpreted by me (1pt. min.). @ -no What testing was considered but not performed or refused? (CT, X-rays, U/S, labs)? Why? @ -none What meds were considered but not given or refused? Why? @ -none Did you discuss the management of the patient with other professionals (professionals i.e. JOANA Duff, [employer]ING [employer]ILER, lab, RT, psych nurse, social services, seismograph helper, teacher, fire management officer, case planner)? Give summary @ -no Was smoking cessation discussed for >3mins.? @ -no Was critical care preformed (if so, how long)? @ -no Were there social determinants of health that impacted care today? How? (Homelessness, low income, unemployed, alcoholism, drug addiction, transportation, low edu. Level, literacy, decrease access to med. care, half-way, rehab)? @ -none Was there de-escalation of care discussed even if they declined (Discuss DNR or withdrawal of care, Hospice)? DNR status @ -no What co-morbidities impacted this encounter? (DM, HTN, Smoking, COPD, CAD, Cancer, CVA, ARF, Chemo, Hep., AIDS, mental health diagnosis, sleep apnea, morbid obesity)? @ -none Was patient admitted / discharged? Hospital course, mention meds given and route, prescriptions, significant lab abnormalities, going to OR and other [facility] [place] info. @ - 37 female to ER for evaluation patient was today for evaluation of severe alcohol intoxication with need for inpatient hospital admission due to significant intoxication Admitted Undiagnosed new problem with uncertain prognosis? @ -no Drug Therapy requiring intensive monitoring for toxicity (Heparin, Nitro, Insulin, Cardizem)? @ -no Were any procedures done? @ -no Diagnosis/symptom? @ -Alcohol intoxication Acute, or Chronic, or Acute on Chronic? @ -Acute Uncomplicated (without systemic symptoms) or Complicated (systemic symptoms)? @ -Complicated Side effects of treatment? @ -no Exacerbation, Progression, or Severe Exacerbation? @ -exacerbation Poses a threat to life or bodily function? How? (Chest pain, [place], [place], pneumonia, PE, COPD, DKA, ARF, appy, cholecystitis, CVA, Diverticulitis, Homicidal, Suicidal, threat to staff... and all critical care pts) @ -yes with significant intoxication Reevaluation #5: Differential Altered Mental Status: Hypoglycemia, DKA, hypercapnia, ETOH, overdose, CO poisoning, trauma, myxedema coma, HTN encephalopathy, infection, encephalitis, psychosis, intercranial hemorrhage, hepatic encephalopathy, meningitis, CVA, this is not meant to be an all-inclusive list - Consultations Consultation #1: Spoke with admitting physicians who agreed admit this patient Medical Decision Making - Medical Decision Making 37 female to ER for evaluation patient was today for evaluation of severe alcohol intoxication with need for inpatient hospital admission due to significant intoxication - Lab Data Result diagrams: 08/03/23 07:23 08/03/23 07:23 Lab Results 08/01/23 08/01/23 08/01/23 Range/Units 22:01 22:55 22:55 WBC 7.2 (3.8-10.6) k/uL RBC 4.87 (4.30-5.90) m/uL Hgb 16.3 (13.0-17.5) gm/dL Hct 45.7 (39.0-53.0) % MCV 93.6 (80.0-100.0) fL MCH 33.4 (25.0-35.0) pg MCHC 35.7 (31.0-37.0) g/dL RDW 12.8 (11.5-15.5) % Plt Count 258 (150-450) k/uL MPV 7.3 Neutrophils % 56 % Lymphocytes % 34 % Monocytes % 6 % Eosinophils % 1 % Basophils % 1 % Neutrophils # 4.0 (1.3-7.7) k/uL Lymphocytes # 2.4 (1.0-4.8) k/uL Monocytes # 0.4 (0-1.0) k/uL Eosinophils # 0.1 (0-0.7) k/uL Basophils # 0.1 (0-0.2) k/uL PT 10.9 (10.0-12.5) sec INR 1.0 (<1.2) APTT 24.6 (22.0-30.0) sec Sodium (137-145) mmol/L Potassium (3.5-5.1) mmol/L Chloride (98-107) mmol/L Carbon Dioxide (22-30) mmol/L Anion Gap mmol/L BUN (9-20) mg/dL Creatinine (0.66-1.25) mg/dL Est GFR (CKD-EPI)AfAm (>60 ml/min/1.73 sqM) Est GFR (CKD-EPI)NonAf (>60 ml/min/1.73 sqM) Glucose (74-99) mg/dL Calcium (8.4-10.2) mg/dL Phosphorus (2.5-4.5) mg/dL Magnesium (1.6-2.3) mg/dL Total Bilirubin (0.2-1.3) mg/dL AST (17-59) U/L ALT (4-49) U/L Alkaline Phosphatase (38-126) U/L Troponin I (0.000-0.034) ng/mL NT-Pro-B Natriuret Pep pg/mL Total Protein (6.3-8.2) g/dL Albumin (3.5-5.0) g/dL Lipase (23-300) U/L Urine Opiates Screen (NotDetected) Ur Oxycodone Screen (NotDetected) Urine Methadone Screen (NotDetected) Ur Barbiturates Screen (NotDetected) U Tricyclic Antidepress (NotDetected) Ur Phencyclidine Scrn (NotDetected) Ur Amphetamines Screen (NotDetected) U Methamphetamines Scrn (NotDetected) U Benzodiazepines Scrn (NotDetected) Urine Cocaine Screen (NotDetected) U Marijuana (THC) Screen (NotDetected) Serum Alcohol mg/dL Influenza Type A (PCR) Not Detected (Not Detectd) Influenza Type B (PCR) Not Detected (Not Detectd) RSV (PCR) Not Detected (Not Detectd) SARS-CoV-2 (PCR) Not Detected (Not Detectd) 08/01/23 08/01/23 08/02/23 Range/Units 22:55 22:55 15:12 WBC (3.8-10.6) k/uL RBC (4.30-5.90) m/uL Hgb (13.0-17.5) gm/dL Hct (39.0-53.0) % MCV (80.0-100.0) fL MCH (25.0-35.0) pg MCHC (31.0-37.0) g/dL RDW (11.5-15.5) % Plt Count (150-450) k/uL MPV Neutrophils % % Lymphocytes % % Monocytes % % Eosinophils % % Basophils % % Neutrophils # (1.3-7.7) k/uL Lymphocytes # (1.0-4.8) k/uL Monocytes # (0-1.0) k/uL Eosinophils # (0-0.7) k/uL Basophils # (0-0.2) k/uL PT (10.0-12.5) sec INR (<1.2) APTT (22.0-30.0) sec Sodium 142 (137-145) mmol/L Potassium 3.7 (3.5-5.1) mmol/L Chloride 106 (98-107) mmol/L Carbon Dioxide 25 (22-30) mmol/L Anion Gap 11 mmol/L BUN 6 L (9-20) mg/dL Creatinine 0.70 (0.66-1.25) mg/dL Est GFR (CKD-EPI)AfAm >90 (>60 ml/min/1.73 sqM) Est GFR (CKD-EPI)NonAf >90 (>60 ml/min/1.73 sqM) Glucose 104 H (74-99) mg/dL Calcium 8.8 (8.4-10.2) mg/dL Phosphorus 3.9 (2.5-4.5) mg/dL Magnesium 2.1 (1.6-2.3) mg/dL Total Bilirubin 0.7 (0.2-1.3) mg/dL AST 58 (17-59) U/L ALT 78 H (4-49) U/L Alkaline Phosphatase 95 (38-126) U/L Troponin I <0.012 (0.000-0.034) ng/mL NT-Pro-B Natriuret Pep <20 pg/mL Total Protein 7.2 (6.3-8.2) g/dL Albumin 4.6 (3.5-5.0) g/dL Lipase 87 (23-300) U/L Urine Opiates Screen Not Detected (NotDetected) Ur Oxycodone Screen Not Detected (NotDetected) Urine Methadone Screen Not Detected (NotDetected) Ur Barbiturates Screen Not Detected (NotDetected) U Tricyclic Antidepress Not Detected (NotDetected) Ur Phencyclidine Scrn Not Detected (NotDetected) Ur Amphetamines Screen Not Detected (NotDetected) U Methamphetamines Scrn Not Detected (NotDetected) U Benzodiazepines Scrn Detected H (NotDetected) Urine Cocaine Screen Not Detected (NotDetected) U Marijuana (THC) Screen Not Detected (NotDetected) Serum Alcohol 266 H* mg/dL Influenza Type A (PCR) (Not Detectd) Influenza Type B (PCR) (Not Detectd) RSV (PCR) (Not Detectd) SARS-CoV-2 (PCR) (Not Detectd) Disposition Clinical Impression: Dehydration, Gastroenteritis, Alcohol use disorder, Alcohol withdrawal, Alcohol dependence, Alcohol intoxication Disposition: ADMITTED IP TO THIS HOSP Condition: Stable
[2023-08-01] MEDS: SODIUM CHLORIDE 0.9% 1,000 ML IV STA ×2 (23:05)
[2023-08-01] MEDS: SODIUM CHLORIDE 0.9% 500 ML 500 ML IV STA (23:06)
[2023-08-01 23:14] LABS: Basophils # (A) 0.1 k/uL (0-0.2); Basophils % (A) 1 %; Eosinophils # (A) 0.1 k/uL (0-0.7); Eosinophils % (A) 1 %; HCT 45.7 % (39.0-53.0); HGB 16.3 gm/dL (13.0-17.5); Lymphocytes # (A) 2.4 k/uL (1.0-4.8); Lymphocytes % (A) 34 %; MCH 33.4 pg (25.0-35.0); MCHC 35.7 g/dL (31.0-37.0); MCV 93.6 fL (80.0-100.0); Mean Platelet Volume 7.3; Monocytes # (A) 0.4 k/uL (0-1.0); Monocytes % (A) 6 %; Neutrophils % (A) 56 %; Platelet Count 258 k/uL (150-450); RBC 4.87 m/uL (4.30-5.90); RDW 12.8 % (11.5-15.5); WBC 7.2 k/uL (3.8-10.6)
[2023-08-01 23:18] LABS: Partial Thromboplastin Time 24.6 sec (22.0-30.0); Prothrombin Time 10.9 sec (10.0-12.5)
[2023-08-01 23:24] LABS: ALT 78 U/L (4-49); AST 58 U/L (17-59); African American GFR (CKD) >90 (>60 ml/min/1.73 sqM); Albumin 4.6 g/dL (3.5-5.0); Alkaline Phosphatase 95 U/L (38-126); Anion Gap 11 mmol/L; Blood Urea Nitrogen 6 mg/dL (9-20); Calcium 8.8 mg/dL (8.4-10.2); Carbon Dioxide 25 mmol/L (22-30); Chloride 106 mmol/L (98-107); Glucose 104 mg/dL (74-99); Lipase 87 U/L (23-300); Magnesium 2.1 mg/dL (1.6-2.3); Non-African American GFR(CKD) >90 (>60 ml/min/1.73 sqM); Phosphorus 3.9 mg/dL (2.5-4.5); Potassium 3.7 mmol/L (3.5-5.1); Sodium 142 mmol/L (137-145); Total Bilirubin 0.7 mg/dL (0.2-1.3); Total Protein 7.2 g/dL (6.3-8.2)
[2023-08-01 23:26] LABS: Alcohol 266 mg/dL
[2023-08-01 23:31] LABS: NT-Pro-B-Type Natriuretic Pept <20 pg/mL
[2023-08-02] MEDS: KETOROLAC 15 MG/ML 1 ML VIAL IVP STA (10:17)
[2023-08-02] MEDS: LORazepam 1 MG TAB PO STA (15:18)
[2023-08-02 15:31] LABS: Amphetamine Screen,Urine Not Detected (NotDetected); Barbiturate Screen,Urine Not Detected (NotDetected); Benzodiazepines Screen,Urine Detected (NotDetected); Cocaine Screen,Urine Not Detected (NotDetected); Methadone Screen, Urine Not Detected (NotDetected); Opiate Screen,Urine Not Detected (NotDetected); Oxycodone Screen, Urine Not Detected (NotDetected); Phencyclidine Screen,Urine Not Detected (NotDetected); Tricyclic Antidepressant,Urine Not Detected (NotDetected); Urn Cannabinoid Scrn Not Detected (NotDetected)
[2023-08-02] MEDS ORDERED: MAGNESIUM HYDROXIDE 2,400 MG/30 ML CUP PO PRN (16:31)
[2023-08-02] MEDS ORDERED: MAG HYDROX/AL HYDROX/SIMETH 30 ML CUP PO PRN (16:31)
[2023-08-02] MEDS ORDERED: HALOPERIDOL LACTATE 5 MG/ML 1 ML VIAL IM PRN (16:37)
[2023-08-02] MEDS: IBUPROFEN 600 MG TAB PO PRN (17:30)
[2023-08-02] MEDS: LORazepam 1 MG TAB PO PRN (17:30)
[2023-08-02] MEDS: QUEtiapine 200 MG TAB PO SCH (20:37)
[2023-08-02] MEDS: chlordiazePOXIDE 25 MG CAP PO SCH (20:37)
[2023-08-03 07:52] LABS: Basophils # (A) 0.1 k/uL (0-0.2); Basophils % (A) 1 %; Eosinophils # (A) 0.1 k/uL (0-0.7); Eosinophils % (A) 2 %; HGB 14.9 gm/dL (13.0-17.5); Lymphocytes % (A) 39 %; MCH 32.9 pg (25.0-35.0); MCHC 34.7 g/dL (31.0-37.0); MCV 94.7 fL (80.0-100.0); Mean Platelet Volume 7.8; Monocytes # (A) 0.2 k/uL (0-1.0); Monocytes % (A) 4 %; Neutrophils # (A) 2.7 k/uL (1.3-7.7); Neutrophils % (A) 52 %; Platelet Count 193 k/uL (150-450); RBC 4.55 m/uL (4.30-5.90); WBC 5.1 k/uL (3.8-10.6)
[2023-08-03 08:18] LABS: ALT 55 U/L (4-49); AST 49 U/L (17-59); African American GFR (CKD) >90 (>60 ml/min/1.73 sqM); Albumin 3.6 g/dL (3.5-5.0); Alkaline Phosphatase 79 U/L (38-126); Anion Gap 6 mmol/L; Blood Urea Nitrogen 7 mg/dL (9-20); Calcium 8.8 mg/dL (8.4-10.2); Carbon Dioxide 23 mmol/L (22-30); Chloride 109 mmol/L (98-107); Glucose 112 mg/dL (74-99); Non-African American GFR(CKD) >90 (>60 ml/min/1.73 sqM); Potassium 3.5 mmol/L (3.5-5.1); Sodium 138 mmol/L (137-145); Total Bilirubin 1.3 mg/dL (0.2-1.3); Total Protein 5.9 g/dL (6.3-8.2)
[2023-08-03] MEDS: NICOTINE 14MG/24HR PATCH TRANSDERM SCH (12:33)
[2023-08-03 14:15] LABS: Chol/HDL Ratio 2.14 Ratio; LDL Cholesterol,Calculated 57.7 mg/dL (0.0-131.0); VLDL Calculation 19.14 mg/dL (5.00-40.00)
[2023-08-03] MEDS ORDERED: LORazepam 0.5 MG TAB PO PRN (14:28)
[2023-08-03] MEDS ORDERED: LORazepam 1 MG TAB PO PRN ×2 (14:28)
--- NOTE | 2023-08-03 15:14 | P.HP ---
Psychiatric H&P - . H&P Date: 08/03/23 History & Physical: Allergies Allergy/AdvReac Type Severity Reaction Status Date / Time No Known Allergies Allergy Verified 08/02/23 17:55 Vital Signs Temp 97.4 F L 08/02/23 16:29 Pulse 88 08/02/23 21:26 Resp 18 08/02/23 16:54 BP 137/102 08/02/23 21:26 Pulse Ox 100 08/02/23 16:54 FiO2 Intake & Output 08/02/23 08/03/23 08/03/23 18:59 06:59 18:59 Weight 119.862 kg Laboratory Last Values WBC 5.1 k/uL (3.8-10.6) 08/03/23 07:23 RBC 4.55 m/uL (4.30-5.90) 08/03/23 07:23 Hgb 14.9 gm/dL (13.0-17.5) 08/03/23 07:23 Hct 43.0 % (39.0-53.0) 08/03/23 07:23 MCV 94.7 fL (80.0-100.0) 08/03/23 07:23 MCH 32.9 pg (25.0-35.0) 08/03/23 07:23 MCHC 34.7 g/dL (31.0-37.0) 08/03/23 07:23 RDW 13.0 % (11.5-15.5) 08/03/23 07:23 Plt Count 193 k/uL (150-450) 08/03/23 07:23 MPV 7.8 08/03/23 07:23 Neutrophils % 52 % 08/03/23 07:23 Lymphocytes % 39 % 08/03/23 07:23 Monocytes % 4 % 08/03/23 07:23 Eosinophils % 2 % 08/03/23 07:23 Basophils % 1 % 08/03/23 07:23 Neutrophils # 2.7 k/uL (1.3-7.7) 08/03/23 07:23 Lymphocytes # 2.0 k/uL (1.0-4.8) 08/03/23 07:23 Monocytes # 0.2 k/uL (0-1.0) 08/03/23 07:23 Eosinophils # 0.1 k/uL (0-0.7) 08/03/23 07:23 Basophils # 0.1 k/uL (0-0.2) 08/03/23 07:23 PT 10.9 sec (10.0-12.5) 08/01/23 22:55 INR 1.0 (<1.2) 08/01/23 22:55 APTT 24.6 sec (22.0-30.0) 08/01/23 22:55 Sodium 138 mmol/L (137-145) 08/03/23 07:23 Potassium 3.5 mmol/L (3.5-5.1) 08/03/23 07:23 Chloride 109 mmol/L (98-107) H 08/03/23 07:23 Carbon Dioxide 23 mmol/L (22-30) 08/03/23 07:23 Anion Gap 6 mmol/L 08/03/23 07:23 BUN 7 mg/dL (9-20) L 08/03/23 07:23 Creatinine 0.71 mg/dL (0.66-1.25) 08/03/23 07:23 Est GFR (CKD-EPI)AfAm >90 (>60 ml/min/1.73 sqM) 08/03/23 07:23 Est GFR (CKD-EPI)NonAf >90 (>60 ml/min/1.73 sqM) 08/03/23 07:23 Glucose 112 mg/dL (74-99) H 08/03/23 07:23 Calcium 8.8 mg/dL (8.4-10.2) 08/03/23 07:23 Phosphorus 3.9 mg/dL (2.5-4.5) 08/01/23 22:55 Magnesium 2.1 mg/dL (1.6-2.3) 08/01/23 22:55 Total Bilirubin 1.3 mg/dL (0.2-1.3) 08/03/23 07:23 AST 49 U/L (17-59) 08/03/23 07:23 ALT 55 U/L (4-49) H 08/03/23 07:23 Alkaline Phosphatase 79 U/L (38-126) 08/03/23 07:23 Troponin I <0.012 ng/mL (0.000-0.034) 08/01/23 22:55 NT-Pro-B Natriuret Pep <20 pg/mL 08/01/23 22:55 Total Protein 5.9 g/dL (6.3-8.2) L 08/03/23 07:23 Albumin 3.6 g/dL (3.5-5.0) 08/03/23 07:23 Lipase 87 U/L (23-300) 08/01/23 22:55 TSH 2.240 mIU/L (0.465-4.680) 08/03/23 07:23 Urine Opiates Screen Not Detected (NotDetected) 08/02/23 15:12 Ur Oxycodone Screen Not Detected (NotDetected) 08/02/23 15:12 Urine Methadone Screen Not Detected (NotDetected) 08/02/23 15:12 Ur Barbiturates Screen Not Detected (NotDetected) 08/02/23 15:12 U Tricyclic Antidepress Not Detected (NotDetected) 08/02/23 15:12 Ur Phencyclidine Scrn Not Detected (NotDetected) 08/02/23 15:12 Ur Amphetamines Screen Not Detected (NotDetected) 08/02/23 15:12 U Methamphetamines Scrn Not Detected (NotDetected) 08/02/23 15:12 U Benzodiazepines Scrn Detected (NotDetected) H 08/02/23 15:12 Urine Cocaine Screen Not Detected (NotDetected) 08/02/23 15:12 U Marijuana (THC) Screen Not Detected (NotDetected) 08/02/23 15:12 Serum Alcohol 266 mg/dL H* 08/01/23 22:55 Influenza Type A (PCR) Not Detected (Not Detectd) 08/01/23 22:01 Influenza Type B (PCR) Not Detected (Not Detectd) 08/01/23 22:01 RSV (PCR) Not Detected (Not Detectd) 08/01/23 22:01 SARS-CoV-2 (PCR) Not Detected (Not Detectd) 08/01/23 22:01 08/03/23 10:12 IDENTIFYING DATA: Patient is a single, unemployed, 37-year-old male, currently lives with his friends HPI: Patient presented to the ED with disorganized thoughts and a serum alcohol of 266. He has been admitted onto this mental health unit numerous times with the last one being in June 2023 for a similar presentation. He states that he brought himself in because he was experiencing high anxiety and low mood. Patient was admitted voluntarily to the mental health unit. He reports experiencing numerous stressors and is unwilling to discuss them further. He repeatedly states "there has been a lot going on". He generalizes that "life" has been stressful. He endorses poor sleep, somewhat low appetite, and low energy. He endorses noncompliant with all his psychotropic medications and denies having followed up with any outpatient provider. He endorses using alcohol as a coping tool. He reports drinking a pint of vodka daily with last drink being prior to hospitalization. Patient denies a history of alcohol withdrawal seizures. Patient denies auditory and visual hallucinations although his thought process is non-linear at times. He denies suicidal ideation currently. He endorses feeling angry towards others and voiced "vague homicidal ideation" in ED but denies homicidal ideation, intent, or plan when asked currently. He endorses having access to firearms and would not discuss this further when asked. PSYCH HX: Patient has a long history of polysubstance use (methamphetamine and alcohol), depression, and failure to follow-up with outpatient providers. He has had numerous psychiatric admissions at our psychiatric unit with the last being in June 2023. He was discharged on Cymbalta 120 mg daily and Seroquel 200 mg at bedtime. PMH: ALLERGIES: PCP: Head injuries: Seizures: SUBSTANCE HX: Alcohol: Drinking a pint of vodka daily. History of DUI History of sorting methamphetamine. History of illicit benzodiazepine use. History of abusing cocaine SOCIAL/LEGAL HX: Patient was born and raised in [place]. He is single, never , but has one son who lives with his son's mother. His mother is now . His father still alive. It was 12 grade education. He currently lives with his friends. Hx being in alf 15+ times FAM PSYCH HX: Father- potential mental illness MENTAL STATUS EXAM: General Appearance: Patient appears to be well-built, several tattoos, has a brown, stated age is alert, directable, and attempts to cooperate. Patient appears to have fair hygiene and grooming. Behavior: Patient is laying in bed, appears to be mildly sedated. Attempts to cooperate. Speech: Patient's speech is fluent and nonpressured. Soft tone Mood/Affect: Patient reports their mood is depressed, affect is constricted. Suicidality/Homicidality: Patient denies having any homicidal ideation intent or plan. However patient denies suicidal ideation Perceptions: Patient denies any visual hallucinations and denies any auditory hallucinations Though content/process: There is no evidence of any delusional thought content and thought process is mostly linear and concrete. Memory and concentration: AOX3, grossly intact for the purposes of this session. Judgment and insight: poor STRENGTHS/WEAKNESSES: Strength is that patient is resilient. Weakness is that patient engages in polysubstance abuse and and has poor judgment. INTELLECT: average IMPRESSIONS: Major depressive disorder, recurrent, severe without psychotic features Alcohol use disorder, severe, in withdrawal Methamphetamine use disorder Cocaine use disorder Nicotine dependence PLAN: -Patient is admitted under voluntary status to MHU for stabilization of psychiatric symptoms and safety. Patient signed adult voluntary form and medication consent and is placed in patient's chart. -Medications : - Start Cymbalta 40 mg daily for mood and anxiety - Continue Seroquel 200 mg qHS for sleep and mood augmentation - Librium 25 mg BID with plan to taper - Nicotine gum & patch - CIWA protocol with Ativan - Thiamin replacement -Patient was counselled on substance abuse and desired to cut back on use. Motivational interviewing. -Patient was informed of the risks, benefits and side effects of the medication and patient verbally consented to taking the medications. Patient signed med consent form and was placed in chart. -Internal Medicine consult to perform medical evaluation and physical. -SW on board for discharge planning. Encourage patient to participate in groups to work on coping skills. Completed duty to warn to police for vague HI & access to guns. 08/03/23 13:59 08/03/23 15:11
[2023-08-03] MEDS: THIAMINE 100 MG/ML 2 ML VIAL IM STA (15:20)
[2023-08-03] MEDS: PNEUMOCOCCAL VACC-PREVNAR-20 0.5 ML SYR IM ONE (16:32)
[2023-08-03] MEDS: INFLUENZA VACC (6 MOS-64 YRS) 60 MCG/0.5 ML SYRINGE IM ONE (16:34)
--- NOTE | 2023-08-03 17:21 | P.MDCNMH ---
History of Present Illness H&P Date: 08/03/23 Chief Complaint: Medical evaluation 37-year-old male with medical history of alcohol abuse, nicotine abuse presented for mental health evaluation. Medicine was consulted for medical management and evaluation. Patient has no complaints at this time other than feeling as if he is withdrawing from nicotine with a preference for nicotine gum over nicotine patches. Patient is hemodynamically stable. CBC is unremarkable. Chemistries demonstrate chloride of 109, total protein of 5.9, otherwise unremarkable. Lipid panel shows an LDL of 57.7. TSH was 2.2. Lipase was 87. Urine tox screen is positive for benzodiazepines. Alcohol level was 266. Lungs A, B, COVID, RSV are negative. Gen: In NAD, non-toxic HEENT: normocephalic, atraumatic, hearing acuity is intant, mucous membranes moist CVS: perfusing all extremities well, no pitting edema, Respiratory: symmetric chest expansion, no accessory muscle use, GI: soft, NTTP, ND, : no suprapubic tenderness, no CVA tenderness MSK/Derm: no rashes, cyanosis Neuro: CN II-XII intact, no motor weakness, Psych: cooperative, euthymic mood, judgment and insight is intact Assessment/plan: Alcohol abuse Alcohol abuse Nicotine abuse -Continue nicotine patch, nicotine gum as needed for breakthrough cravings -Agree with Librium, Ativan as needed -Agree with thiamine, add folic acid, multivitamin Thank you for this consult, please reach out if there are any questions or concerns. Past Medical History Past Medical History: Deep Vein Thrombosis (DVT), Thyroid Disorder Additional Past Medical History / Comment(s): ETOH abuse, past withdrawls with t remors/nausea/seizure, chronic low back pain, recent R knee/leg pain, DVT R leg, Catogory 5 blood disorder. History of Any Multi-Drug Resistant Organisms: None Reported Past Surgical History: Cholecystectomy, Orthopedic Surgery Additional Past Surgical History / Comment(s): right knee tendon surgery Past Anesthesia/Blood Transfusion Reactions: Motion Sickness Additional Past Anesthesia/Blood Transfusion Reaction / Comment(s): Clausterphobia. Smoking Status: Current every day smoker - Past Family History Father History Unknown: Yes Family Medical History: CVA/TIA Additional Family Medical History / Comment(s): Unable to obtain family history secondary altered mentation Mother Family Medical History: Congestive Heart Failure (CHF) Medications and Allergies Home Medications Medication Instructions Recorded Confirmed Type DULoxetine HCL [Cymbalta] 120 mg PO DAILY 30 Days #60 cap 07/16/23 08/02/23 Rx Nicotine Gum (Polacrilex) 2 mg BUCCAL Q2HR PRN #180 07/16/23 08/02/23 Rx [Nicorette] pieceofgum QUEtiapine [SEROquel] 200 mg PO HS 30 Days #30 tab 07/16/23 08/02/23 Rx hydrOXYzine pamoate [Vistaril] 50 mg PO DAILY PRN 14 Days #28 cap 07/16/23 08/02/23 Rx Allergies Allergy/AdvReac Type Severity Reaction Status Date / Time No Known Allergies Allergy Verified 08/02/23 17:55 Physical Exam Osteopathic Statement: *. No significant issues noted on an osteopathic stru ctural exam other than those noted in the History and Physical/Consult. Vitals: Vital Signs Temp Pulse Pulse Resp BP BP Pulse Ox 08/03/23 16:45 86 135/90 08/03/23 12:39 98.2 F 103 H 18 134/83 97 08/02/23 21:26 88 137/102 08/02/23 20:30 121 H 152/97 Cranial Nerve Examination - Cranial Nerves Cranial Nerve II- Optic: Intact Cranial Nerve III- Oculomotor: Intact Cranial Nerve IV- Trochlear: Intact Cranial Nerve V- Trigeminal: Intact Cranial Nerve - Abducens: Intact Cranial Nerve VII- Facial: Intact Cranial Nerve VIII- Auditory: Intact Cranial Nerve IX- Glossopharyngeal: Intact Cranial Nerve X- Vagus: Intact Cranial Nerve XI- Accessory: Intact Cranial Nerve XII- Hypoglossal: Intact Results CBC & Chem 7: 08/03/23 07:23 08/03/23 07:23 Labs: Abnormal Lab Results - Last 24 Hours (Table) 08/03/23 Range/Units 07:23 Chloride 109 H (98-107) mmol/L BUN 7 L (9-20) mg/dL Glucose 112 H (74-99) mg/dL ALT 55 H (4-49) U/L Total Protein 5.9 L (6.3-8.2) g/dL HDL Cholesterol 67.20 H (40.00-60.00) mg/dL
[2023-08-04] MEDS: DULoxetine HCL 20 MG CAPSULE.DR PO SCH (08:47)
[2023-08-04] MEDS: THIAMINE 100 MG TAB PO SCH (08:48)
[2023-08-04] MEDS: FOLIC ACID 1 MG TAB PO SCH (08:48)
[2023-08-04] MEDS: MULTIVITAMINS, THERA 1 EACH TAB PO SCH (08:48)
--- NOTE | 2023-08-04 11:53 | P.PN ---
Progress Note - Text Progress Note Date: 08/04/23 Interval History: Patient was seen bedside and agreeable to speak with curriculum writer. Patient was slee ping this morning. He says he slept fairly well last night. He reports that his mood is "all right ". He reports fair appetite. He states that he was hearing some auditory hallucinations that were "gibberish" yesterday. He denies them today. He says he is responding to the medications and denies other concerns at this time. He denies alcohol withdrawal symptoms at this time and has been receiving Ativan (received 1 mg once yesterday) and Librium. He endorses tolerating these medications well. At this time patient denies any suicidal or homicidal ideations, intent or plan. Patient denies any auditory, visual hallucinations and denies any paranoia or delusions. Patient denies any side effects from the medications and has been compliant with meds. Vital Signs Temp 98.3 F 08/04/23 06:59 Pulse 110 H 08/04/23 08:50 Resp 14 08/04/23 06:59 BP 128/82 08/04/23 08:50 Pulse Ox 98 08/04/23 06:59 FiO2 Mental Status Exam: General Appearance: Patient appears to be well-built, several tattoos, has a brown, stated age is alert, directable, and attempts to cooperate. Patient appears to have fair hygiene and grooming. Behavior: Patient is laying in bed, appears to be mildly sedated. Attempts to cooperate. Speech: Patient's speech is fluent and nonpressured. Soft tone Mood/Affect: Patient reports their mood is depressed, affect is constricted. Suicidality/Homicidality: Patient denies having any homicidal ideation intent or plan. However patient denies suicidal ideation Perceptions: Patient denies any visual hallucinations and denies any auditory hallucinations Though content/process: There is no evidence of any delusional thought content and thought process is mostly linear and concrete. Memory and concentration: AOX3, grossly intact for the purposes of this session. Judgment and insight: poor Assessment Major depressive disorder, recurrent, severe without psychotic features Alcohol use disorder, severe, in withdrawal Methamphetamine use disorder Cocaine use disorder Nicotine dependence PLAN: -Patient is admitted under voluntary status to [facility] for stabilization of psychiatric symptoms and safety. Patient signed adult voluntary form and medication consent and is placed in patient's chart. -Medications : - Increase Cymbalta to 60 mg daily tomorrow for mood and anxiety - Continue Seroquel 200 mg qHS for sleep and mood augmentation - Librium 25 mg BID. Taper to 10 mg TID tomorrow - Nicotine gum & patch - CIWA protocol with Ativan - Thiamin replacement -Patient was counselled on substance abuse and desired to cut back on use. Motivational interviewing. -Patient was informed of the risks, benefits and side effects of the medication and patient verbally consented to taking the medications. Patient signed med consent form and was placed in chart. -Internal Medicine consult to perform medical evaluation and physical. -SW on board for discharge planning. Encourage patient to participate in groups to work on coping skills. Completed duty to warn to police for vague HI & access to guns.
[2023-08-04] MEDS: haloperidoL 5 MG TAB PO PRN (13:40)
[2023-08-04] MEDS: LORazepam 1 MG TAB PO PRN (20:47)
[2023-08-04] MEDS: NICOTINE GUM (POLACRILEX) 2 MG GUM BUCCAL PRN (20:49)
[2023-08-05] MEDS: DULoxetine HCL 60 MG CAPSULE.DR PO SCH (08:46)
--- NOTE | 2023-08-05 11:31 | P.PN ---
Progress Note - Text Progress Note Date: 08/05/23 Interval History: Patient was seen laying in his bed today. He was agreeable to speak to promotion writer at the bedside. He states asked he relapsed back on alcohol, states that he was feeling depressed. Claims that he still having some minor withdrawal symptoms at this time. He claims that he is still unsure about going to rehab or not. He states that he is currently homeless and does not know where he will go. Has been mainly isolating in his room, has poor eye contact, poor hygiene and groom ing. Poor insight and judgment continues to endorse depression and anxiety, states that his sleep is mildly improving, appetite is fair. At this time patient denies any suicidal or homical ideations, intent or plan. Patient denies any auditory, visual hallucinations and denies any paranoia or delusions. Patient denies any side effects from the medications and has been compliant with meds. Mental Status Exam: General Appearance: Patient appears to be well-built, several tattoos, has a brown, stated age is alert, directable, and attempts to cooperate. Poor eye contact. Patient appears to poor hygiene and grooming. Behavior: Patient is laying in bed, appears to be mildly sedated. Attempts to cooperate. Speech: Patient's speech is fluent and nonpressured. Soft tone Mood/Affect: Patient reports their mood is depressed, affect is constricted. Suicidality/Homicidality: Patient denies having any homicidal ideation intent or plan. patient denies suicidal ideation Perceptions: Patient denies any visual hallucinations and denies any auditory hallucinations Though content/process: There is no evidence of any delusional thought content and thought process is mostly linear and concrete. Vague, guarded Memory and concentration: AOX3, grossly intact for the purposes of this session. Judgment and insight: poor Assessment Major depressive disorder, recurrent, severe without psychotic features Alcohol use disorder, severe, in withdrawal Methamphetamine use disorder Cocaine use disorder Nicotine dependence PLAN: -Patient is admitted under voluntary status to [facility] for stabilization of psychiatric symptoms and safety. Patient signed adult voluntary form and medication consent and is placed in patient's chart. -Medications : Increased Cymbalta 90 mg daily for mood and anxiety/pain, continue Seroquel 200 mg qHS for sleep and mood augmentation, decrease Librium 10 mg 3 times daily, last dose will be given tomorrow morning. Added home dose of Neurontin 400 mg daily for neuropathic pain. - Nicotine gum & patch - CIWA protocol with Ativan, plan to discontinue tomorrow. - Thiamin replacement - on board for discharge planning. Encourage patient to participate in groups to work on coping skills. Likely discharge in 2 to 3 days once patient goes through withdrawals and will be calling [place] for inpatient rehab.
[2023-08-05] MEDS: ACETAMINOPHEN TAB 325 MG TAB PO PRN (12:28)
[2023-08-05] MEDS: GABAPENTIN 400 MG CAP PO SCH (12:28)
[2023-08-06 07:02] VITALS: TEMP 97.9
[2023-08-06] MEDS: DULoxetine HCL 30 MG CAPSULE.DR PO SCH (08:55)
--- NOTE | 2023-08-06 11:35 | P.PN ---
Progress Note - Text Progress Note Date: 08/06/23 Interval History: Patient was seen laying in the hallway. He was agreeable to speak to senior copywriter at the bedside. He states his meds are good, and he wants to leave. General Road Supervisor explained to the patient that he has to be stable prior to discharge, and that this patient comes in for readmits often. Patient gets mildly agitated, and states "that's what insurance is for, doc." He states he has places to be. Poor insight and judgment denies depression and anxiety, states that his sleep is mildly improving, appetite is fair. Patient states that rehab is too backed up for him to get in there, and it will take days, and he is not sure that is the route he wants to take at this time. Offered patient naltrexone for his alcohol cravings, patient refused. At this time patient denies any suicidal or homicidal ideations, intent or plan. Patient denies any auditory, visual hallucinations and denies any paranoia or delusions. Patient denies any side effects from the medications and has been compliant with meds. Mental Status Exam: General Appearance: Patient appears to be well-built, several tattoos, has a brown, stated age is alert, directable, and attempts to cooperate. Poor eye contact. Patient appears to poor hygiene and grooming. Behavior: Patient is laying in bed, appears to be mildly sedated. Attempts to cooperate. Focused on discharge, mildly irritable. Speech: Patient's speech is fluent and nonpressured. Mood/Affect: Patient reports their mood is depressed, affect is constricted. Suicidality/Homicidality: Patient denies having any homicidal ideation intent or plan. patient denies suicidal ideation Perceptions: Patient denies any visual hallucinations and denies any auditory hallucinations Though content/process: There is no evidence of any delusional thought content and thought process is mostly linear and concrete. Vague, guarded Memory and concentration: AOX3, grossly intact for the purposes of this session. Judgment and insight: chronically poor Assessment Major depressive disorder, recurrent, severe without psychotic features Alcohol use disorder, severe, in withdrawal Methamphetamine use disorder Cocaine use disorder Nicotine dependence PLAN: -Patient is admitted under voluntary status to [facility] for stabilization of psychiatric symptoms and safety. Patient signed adult voluntary form and medication consent and is placed in patient's chart. -Medications : Cymbalta 90 mg daily for mood and anxiety/pain, Seroquel 200 mg qHS for sleep and mood augmentation/stabilization, d/c Librium, Neurontin 400 mg daily for neuropathic pain. Offered naltrexone for alcohol withdraw, patient refused. - Nicotine gum & patch -d/c CIWA -Thiamin replacement - on board for discharge planning. Encourage patient to participate in groups to work on coping skills. Likely discharge saturday if patient continues to improve. he is not interested in rehab at this time.
[2023-08-06] MEDS: NICOTINE GUM (POLACRILEX) 2 MG GUM BUCCAL PRN (12:22)
[2023-08-06] MEDS ORDERED: MAG HYDROX/AL HYDROX/SIMETH 355 ML BOTTLE PO PRN (15:33)
[2023-08-07 07:41] VITALS: BP 119/75; PULSE 74; RESP 16
--- NOTE | 2023-08-07 11:18 | P.DS ---
Providers Date of admission: 08/02/23 16:27 Expected date of discharge: 08/07/23 Attending physician: Eugene Mantilla MD Consults: 08/02/23 16:31 Consult Physician Routine Consulting Provider: [facility] Consult Reason/Comments: history adn physical Do you want consulting provider notified?: Yes Primary care physician: Stated None - Discharge Diagnosis(es) (1) Major depressive disorder, recurrent severe without psychotic features Current Visit: Yes Status: Acute Priority: High (2) Alcohol use disorder, severe, dependence Current Visit: Yes Status: Acute Priority: High (3) Methamphetamine use disorder, moderate Current Visit: Yes Status: Acute Priority: High (4) Cocaine use disorder Current Visit: No Status: Acute Priority: Medium (5) Nicotine dependence Current Visit: No Status: Acute Priority: Low Hospital Course: Admission HPI: Admission note was completed by Dr Yao "Patient presented to the ED with disorganized thoughts and a serum alcohol of 266. He has been admitted onto this mental health unit numerous times with the last one being in June 2023 for a similar presentation.He states that he brought himself in because he was experiencing high anxiety and low mood. Patient was admitted voluntarily to the mental health unit. He reports experiencing numerous stressors and is unwilling to discuss them further. He repeatedly states "there has been a lot going on". He generalizes that "life" has been stressful. He endorses poor sleep, somewhat low appetite, and low energy. He endorses noncompliant with all his psychotropic medications and denies having followed up with any outpatient provider. He endorses using alcohol as a coping tool. He reports drinking a pint of vodka daily with last drink being prior to hospitalization. Patient denies a history of alcohol withdrawal seizures. Patient denies auditory and visual hallucinations although his thought process is non-linear at times. He denies suicidal ideation currently. He endorses feeling angry towards others and voiced "vague homicidal ideation" in ED but denies homicidal ideation, intent, or plan when asked currently. He endorses having access to firearms and would not discuss this further when asked." Hospital course: Upon admission to the unit patient was directable and agreeable to commence treatment and signed adult voluntary form. Patient was initially fairly isolative, however with time and treatment he eventually got along well with other patients on the unit and followed unit protocol. Patient was compliant with the medications and denied any side effects throughout hospital course. Patient was started on Seroquel 200 mg nightly for sleep/mood aug mentation/psychosis., Cymbalta 90 mg daily for mood/anxiety/pain, Librium was started for withdrawal from alcohol, gradually tapered off. Patient was also on CIWA protocol with as needed Ativan. He was restarted back on home dose of Neurontin 400 mg daily as needed for neuropathic pain. Patient was offered anticraving medications for alcohol however declined them. Patient spoke of his stressors and engaged in therapy both group and individual. Patient was also seen by medical team for history and physical exam. Throughout the course of the hospitalization patient gradually improved with regards to mood, anxiety, suicidal thoughts, sleep and returned back to their baseline level of functioning. On the day of discharge patient denied any suicidal or homicidal ideations intent or plan denied any auditory or visual hallucinations. Patient endorsed wanting to live for his health and family. The patient denied any access to guns or weapons. Patient denied any paranoia and did not endorse any delusions. Patient does have a significant history of substance abuse and was counseled on abstaining from all substances including alcohol and marijuana. Patient was offered however declined inpatient substance-abuse rehab. Patient elected to do outpatient substance use treatment program through [facility]. Patient was also counseled on the medications and need for regular compliance and was encouraged to follow-up with their outpatient appointment for mental health and also for primary care. Patient declined rehab and claims that he wants to stay at a friend's house versus a low-cost motel. Mental status exam: General Appearance: Patient appears to be tall, well-built, stated age is alert, pleasant, and cooperative. Patient is in no acute distress and has improved hygiene and grooming Behavior: Patient is calmly seated without any agitated behavior. Speech: Patient's speech is fluent and nonpressured. Mood/Affect: Patient reports their mood is "good", affect is congruent Suicidality/Homicidality: Patient denies having any suicidal or homicidal ideation intent or plan. Perceptions: Patient denies any auditory or visual hallucinations. Though content/process: There is no evidence of any delusional thought content and thought process is linear and goal-directed. Memory and concentration: AOX3, grossly intact for the purposes of this session. Can spell "WORLD" backwards correctly. Judgment and insight: Chronically poor, however has improved with guarded prognosis Impression: Major depressive disorder, recurrent, severe without psychotic features Alcohol use disorder, severe, in withdrawal Methamphetamine use disorder Cocaine use disorder Nicotine dependence Plan: -Continue with discharge today as patient has improved and stabilized psychiatrically and is not currently an imminent threat to himself and/or others. Patient will remain at chronically elevated risk for harm to self and/or others due to his impulsivity and polysubstance abuse. -Continue medications: Cymbalta 90 mg daily for mood/anxiety/pain, Seroquel 200 mg nightly for sleep/mood augmentation/psychosis, Librium was discontinued. Will only be given a 3-day supply of Neurontin. -Patient was counseled on the need for medication compliance and appropriate follow-up at mental health and also primary care for medical issues. Patient verbalized understanding and agreed. -Social work to help coordinate patient's discharge today. Social work also to arrange for patients follow up appointments with [facility] for psychiatric care along with follow up with primary care provider. -Patient counseled on abstaining from recreational drugs and marijuana and alcohol. Was informed/educated on the adverse effects on their physical and mental health. Patient verbally agreed and understood. Patient was offered substance abuse treatment however declined at this time. -Patient was instructed to return to the hospital or seek immediate medical care if their psychiatric or medical symptoms do worsen or reoccur. Allergies Allergy/AdvReac Type Severity Reaction Status Date / Time No Known Allergies Allergy Verified 08/02/23 17:55 Laboratory Results WBC 5.1 k/uL (3.8-10.6) 08/03/23 07:23 RBC 4.55 m/uL (4.30-5.90) 08/03/23 07:23 Hgb 14.9 gm/dL (13.0-17.5) 08/03/23 07:23 Hct 43.0 % (39.0-53.0) 08/03/23 07:23 MCV 94.7 fL (80.0-100.0) 08/03/23 07:23 MCH 32.9 pg (25.0-35.0) 08/03/23 07:23 MCHC 34.7 g/dL (31.0-37.0) 08/03/23 07:23 RDW 13.0 % (11.5-15.5) 08/03/23 07:23 Plt Count 193 k/uL (150-450) 08/03/23 07:23 MPV 7.8 08/03/23 07:23 Neutrophils % 52 % 08/03/23 07:23 Lymphocytes % 39 % 08/03/23 07:23 Monocytes % 4 % 08/03/23 07:23 Eosinophils % 2 % 08/03/23 07:23 Basophils % 1 % 08/03/23 07:23 Neutrophils # 2.7 k/uL (1.3-7.7) 08/03/23 07:23 Lymphocytes # 2.0 k/uL (1.0-4.8) 08/03/23 07:23 Monocytes # 0.2 k/uL (0-1.0) 08/03/23 07:23 Eosinophils # 0.1 k/uL (0-0.7) 08/03/23 07:23 Basophils # 0.1 k/uL (0-0.2) 08/03/23 07:23 PT 10.9 sec (10.0-12.5) 08/01/23 22:55 INR 1.0 (<1.2) 08/01/23 22:55 APTT 24.6 sec (22.0-30.0) 08/01/23 22:55 Sodium 138 mmol/L (137-145) 08/03/23 07:23 Potassium 3.5 mmol/L (3.5-5.1) 08/03/23 07:23 Chloride 109 mmol/L (98-107) H 08/03/23 07:23 Carbon Dioxide 23 mmol/L (22-30) 08/03/23 07:23 Anion Gap 6 mmol/L 08/03/23 07:23 BUN 7 mg/dL (9-20) L 08/03/23 07:23 Creatinine 0.71 mg/dL (0.66-1.25) 08/03/23 07:23 Est GFR (CKD-EPI)AfAm >90 (>60 ml/min/1.73 sqM) 08/03/23 07:23 Est GFR (CKD-EPI)NonAf >90 (>60 ml/min/1.73 sqM) 08/03/23 07:23 Glucose 112 mg/dL (74-99) H 08/03/23 07:23 Calcium 8.8 mg/dL (8.4-10.2) 08/03/23 07:23 Phosphorus 3.9 mg/dL (2.5-4.5) 08/01/23 22:55 Magnesium 2.1 mg/dL (1.6-2.3) 08/01/23 22:55 Total Bilirubin 1.3 mg/dL (0.2-1.3) 08/03/23 07:23 AST 49 U/L (17-59) 08/03/23 07:23 ALT 55 U/L (4-49) H 08/03/23 07:23 Alkaline Phosphatase 79 U/L (38-126) 08/03/23 07:23 Troponin I <0.012 ng/mL (0.000-0.034) 08/01/23 22:55 NT-Pro-B Natriuret Pep <20 pg/mL 08/01/23 22:55 Total Protein 5.9 g/dL (6.3-8.2) L 08/03/23 07:23 Albumin 3.6 g/dL (3.5-5.0) 08/03/23 07:23 Triglycerides 95.70 mg/dL (0.00-149.00) 08/03/23 07:23 Cholesterol 144.00 mg/dL (0.00-200.00) 08/03/23 07:23 LDL Cholesterol, Calc 57.7 mg/dL (0.0-131.0) 08/03/23 07:23 VLDL Cholesterol, Calc 19.14 mg/dL (5.00-40.00) 08/03/23 07:23 HDL Cholesterol 67.20 mg/dL (40.00-60.00) H 08/03/23 07:23 Cholesterol/HDL Ratio 2.14 Ratio 08/03/23 07:23 Lipase 87 U/L (23-300) 08/01/23 22:55 TSH 2.240 mIU/L (0.465-4.680) 08/03/23 07:23 Urine Opiates Screen Not Detected (NotDetected) 08/02/23 15:12 Ur Oxycodone Screen Not Detected (NotDetected) 08/02/23 15:12 Urine Methadone Screen Not Detected (NotDetected) 08/02/23 15:12 Ur Barbiturates Screen Not Detected (NotDetected) 08/02/23 15:12 U Tricyclic Antidepress Not Detected (NotDetected) 08/02/23 15:12 Ur Phencyclidine Scrn Not Detected (NotDetected) 08/02/23 15:12 Ur Amphetamines Screen Not Detected (NotDetected) 08/02/23 15:12 U Methamphetamines Scrn Not Detected (NotDetected) 08/02/23 15:12 U Benzodiazepines Scrn Detected (NotDetected) H 08/02/23 15:12 Urine Cocaine Screen Not Detected (NotDetected) 08/02/23 15:12 U Marijuana (THC) Screen Not Detected (NotDetected) 08/02/23 15:12 Serum Alcohol 266 mg/dL H* 08/01/23 22:55 Influenza Type A (PCR) Not Detected (Not Detectd) 08/01/23 22:01 Influenza Type B (PCR) Not Detected (Not Detectd) 08/01/23 22:01 RSV (PCR) Not Detected (Not Detectd) 08/01/23 22:01 SARS-CoV-2 (PCR) Not Detected (Not Detectd) 08/01/23 22:01 Vital Signs Temp 97.9 F 08/07/23 06:54 Pulse 74 08/07/23 06:54 Resp 16 08/07/23 06:54 BP 119/75 08/07/23 06:54 Pulse Ox 98 08/04/23 06:59 FiO2 Patient Condition at Discharge: Stable Plan - Discharge Summary New Discharge Prescriptions: New DULoxetine HCL [Cymbalta] 90 mg PO DAILY 30 Days #90 cap Ibuprofen [Motrin] 600 mg PO Q6HR PRN tab PRN Reason: Moderate Pain (Scale 4 To 6) Multivitamins, Thera [Multivitamin (formulary)] 1 each PO DAILY tab Gabapentin [Neurontin] 400 mg PO DAILY 3 Days #3 cap Thiamine [Vitamin B-1] 100 mg PO DAILY tab Folic Acid 1 mg PO DAILY tab Nicotine Gum (Polacrilex) [Nicorette] 2 mg BUCCAL Q4HR PRN 30 Days #180 pieceofgum PRN Reason: Nicotine Cravings Continue QUEtiapine [SEROquel] 200 mg PO HS 30 Days #30 tab Discontinued DULoxetine HCL [Cymbalta] 120 mg PO DAILY 30 Days #60 cap Nicotine Gum (Polacrilex) [Nicorette] 2 mg BUCCAL Q2HR PRN #180 pieceofgum PRN Reason: Nicotine Cravings hydrOXYzine pamoate [Vistaril] 50 mg PO DAILY PRN 14 Days #28 cap PRN Reason: Agitation Or Acute Anxiety Discharge Medication List DULoxetine HCL [Cymbalta] 90 mg PO DAILY 30 Days #90 cap 08/07/23 [Rx] Folic Acid 1 mg PO DAILY tab 08/07/23 [Rx] Gabapentin [Neurontin] 400 mg PO DAILY 3 Days #3 cap 08/07/23 [Rx] Ibuprofen [Motrin] 600 mg PO Q6HR PRN tab 08/07/23 [Rx] Multivitamins, Thera [Multivitamin (formulary)] 1 each PO DAILY tab 08/07/23 [Rx] Nicotine Gum (Polacrilex) [Nicorette] 2 mg BUCCAL Q4HR PRN 30 Days #180 pieceofgum 08/07/23 [Rx] QUEtiapine [SEROquel] 200 mg PO HS 30 Days #30 tab 08/07/23 [Rx] Thiamine [Vitamin B-1] 100 mg PO DAILY tab 08/07/23 [Rx] Follow up Appointment(s)/Referral(s): [facility]iel[facility] [Outside] - 1 Week [facility] [Outside] - 08/09/23 8:30 am (08/09/2023 8:30AM - 9:30AM JORY ANGELA 08/16/2023 8:30AM - 9:00AM ENEDINA DOWNING ) [facility] [NON-STAFF] - 1 Week Patient Instructions/Handouts: How to Stop Smoking (DC), Depression (DC), Alcohol Intoxication (DC) Activity/Diet/Wound Care/Special Instructions: Belongings returned to patient at discharge, see Personal Property Sheet. Discharge instructions given with verbal understanding, papers signed and copies given in discharge folder. Patient verbalized ready for discharge denying suicidal and homicidal thoughts, verbalized intent to follow up at scheduled psy chiatric appointments and take prescribed medications as ordered. Discharge/Stand Alone Forms: AA Meetings [place] Discharge Disposition: OTHER INSTITUTION NOT DEFINED
== END 2023-08-07 11:59 | DRG 751 ==
LOC: EC 21:43 → 3MHU 08-02 16:27
PROVIDERS: ADMIT Psychiatry & Neurology Psychiatry; ATTEND Psychiatry & Neurology Psychiatry
PROC: HZ2ZZZZ Detoxification Services for Substance Abuse Treatment (ICD-10-PCS; principal; 2023-08-02)
DX: F33.2 Major depressive disorder, recurrent severe without psychotic features (principal); E86.0 Dehydration; K52.9 Noninfective gastroenteritis and colitis, unspecified; Z11.52 Encounter for screening for COVID-19; F10.229 Alcohol dependence with intoxication, unspecified; F14.10 Cocaine abuse, uncomplicated; Z71.41 Alcohol abuse counseling and surveillance of alcoholic; F41.9 Anxiety disorder, unspecified; Z71.6 Tobacco abuse counseling; F10.239 Alcohol dependence with withdrawal, unspecified; F15.20 Other stimulant dependence, uncomplicated; F17.210 Nicotine dependence, cigarettes, uncomplicated; R45.850 Homicidal ideations; R45.851 Suicidal ideations; Z79.899 Other long term (current) drug therapy; Z82.49 Family history of ischemic heart disease and other diseases of the circulatory system; Z91.199 Patient's noncompliance with other medical treatment and regimen due to unspecified reason; Z90.49 Acquired absence of other specified parts of digestive tract
CPT/HCPCS: 36415; 80053; 80061; 80306; 80320; 83690; 83735; 83880; 84100; 84443; 84484; 85025; 85610; 85730; 87636; 90677; 90686; 96361; 96374; 99285

== ENCOUNTER 2023-08-23 22:35 | Emergency (ER) | payer OTHER ==
[2023-08-24] MEDS ORDERED: chlordiazePOXIDE 25 MG CAP PO PRN (05:32)
[2023-08-24] MEDS ORDERED: LORazepam 2 MG/ML INJ IV PRN ×3 (05:32)
--- NOTE | 2023-08-24 05:37 | ED ---
Psych HPI - General Source: patient Mode of arrival: ambulatory - History of Present Illness MD Complaint: suicidal ideation, feels depressed -: days(s) Associated Psychiatric Symptoms: depression, suicidal ideation History of same: Yes Quality: getting worse Improves With: none Worsens With: none Context: recent alcohol abuse <LinoMarciano clark - Last Filed: 08/24/23 05:33> <Luigi Up - Last Filed: 08/24/23 15:21> - General Chief Complaint: Psychiatric Symptoms Stated Complaint: Mental Health Time Seen by Provider: 08/23/23 22:49 - Related Data Previous Rx's Medication Instructions Recorded DULoxetine HCL [Cymbalta] 90 mg PO DAILY 30 Days #90 cap 08/07/23 Folic Acid 1 mg PO DAILY tab 08/07/23 Gabapentin [Neurontin] 400 mg PO DAILY 3 Days #3 cap 08/07/23 Ibuprofen [Motrin] 600 mg PO Q6HR PRN tab 08/07/23 Multivitamins, Thera [Multivitamin 1 each PO DAILY tab 08/07/23 (formulary)] Nicotine Gum (Polacrilex) 2 mg BUCCAL Q4HR PRN 30 Days #180 08/07/23 [Nicorette] pieceofgum QUEtiapine [SEROquel] 200 mg PO HS 30 Days #30 tab 08/07/23 Thiamine [Vitamin B-1] 100 mg PO DAILY tab 08/07/23 Allergies Allergy/AdvReac Type Severity Reaction Status Date / Time No Known Allergies Allergy Verified 08/02/23 17:55 Review of Systems ROS Other: All systems not noted in ROS Statement are negative. Constitutional: Denies: fever, chills, weakness Respiratory: Denies: cough, dyspnea Cardiovascular: Denies: chest pain, palpitations Gastrointestinal: Denies: abdominal pain, vomiting, diarrhea Genitourinary: Denies: dysuria, hematuria Musculoskeletal: Denies: back pain Skin: Denies: rash Neurological: Denies: headache, weakness, numbness Psychiatric: Reports: depression, suicidal thoughts. Denies: homicidal thoughts <JaciMarciano - Last Filed: 08/24/23 05:33> ROS Other: All systems not noted in ROS Statement are negative. <Luigi Up - Last Filed: 08/24/23 15:21> ROS Statement: Those systems with pertinent positive or pertinent negative responses have been documented in the HPI. Past Medical History Past Medical History: Deep Vein Thrombosis (DVT), Thyroid Disorder Additional Past Medical History / Comment(s): ETOH abuse, past withdrawls with tremors/nausea/seizure, chronic low back pain, recent R knee/leg pain, DVT R leg, Catogory 5 blood disorder. History of Any Multi-Drug Resistant Organisms: None Reported Past Surgical History: Cholecystectomy, Orthopedic Surgery Additional Past Surgical History / Comment(s): right knee tendon surgery Past Anesthesia/Blood Transfusion Reactions: Motion Sickness Additional Past Anesthesia/Blood Transfusion Reaction / Comment(s): Clausterphobia. Past Psychological History: Anxiety, Bipolar, Depression Smoking Status: Current every day smoker Past Alcohol Use History: Daily, Heavy Past Drug Use History: Cocaine, Marijuana, Methamphetamine - Past Family History Father History Unknown: Yes Family Medical History: CVA/TIA Additional Family Medical History / Comment(s): Unable to obtain family history secondary altered mentation Mother Family Medical History: Congestive Heart Failure (CHF) <Marciano Beatty Filed: 08/24/23 05:33> General Exam Limitations: no limitations General appearance: alert, appears intoxicated Head exam: Present: atraumatic, normocephalic Eye exam: Present: normal appearance. Absent: scleral icterus, conjunctival injection Neck exam: Present: normal inspection Respiratory exam: Present: normal lung sounds bilaterally. Absent: respiratory distress, wheezes, rales, rhonchi, stridor Cardiovascular Exam: Present: regular rate, normal rhythm, normal heart sounds. Absent: systolic murmur, diastolic murmur, rubs, gallop GI/Abdominal exam: Present: soft. Absent: distended, tenderness, guarding, rebound, rigid, mass Extremities exam: Present: normal inspection, normal capillary refill. Absent: pedal edema, calf tenderness Back exam: Present: normal inspection. Absent: CVA tenderness (R), CVA tenderness (L) Neurological exam: Present: alert Psychiatric exam: Present: depressed, suicidal ideation. Absent: agitated, anxious, flat affect, manic, homicidal ideation Skin exam: Present: warm, dry, intact, normal color. Absent: rash <Marciano Beatty - Last Filed: 08/24/23 05:33> Course Vital Signs 08/23/23 08/24/23 22:38 00:44 Temperature 98.8 F 98 F Pulse Rate 68 74 Respiratory 18 13 Rate Blood Pressure 126/86 119/74 O2 Sat by Pulse 98 97 Oximetry Medical Decision Making <Luigi Up - Last Filed: 08/24/23 15:21> - Medical Decision Making The patient was signed out to me at her shift change by Dr. Perdomo pending EPS evaluation. The patient presented initially with alcohol intoxication and suicidal thoughts but no definitive plan. Patient was ultimately seen by the EPS service currently not a risk to himself or anyone else he was being discharged with a safety plan. Was pt. sent in by a medical professional or institution (, PA, GOVERNMENT GUARD, urgent care, hospital, or group home...) When possible be specific @ -No Did you speak to anyone other than the patient for history (EMS, parent, family, police, friend...)? What history was obtained from this source @ -Dr. Perdomo Did you review nursing and triage notes (agree or disagree)? Why? @ -I reviewed and agree with nursing and triage notes Were old charts reviewed (outside hosp., previous admission, EMS record, old EKG, old radiological studies, urgent care reports/EKG's, group home records)? Report findings @ -No old charts were reviewed Differential Diagnosis (chest pain, altered mental status, abdominal pain women, abdominal pain men, vaginal bleeding, weakness, fever, dyspnea, syncope, headache, dizziness, GI bleed, back pain, seizure, CVA, palpatations, mental health, musculoskeletal)? @ -Call intoxication, depression EKG interpreted by me (3pts min.). @ -Not indicated X-rays interpreted by me (1pt min.). @ -None done CT interpreted by me (1pt min.). @ -None done U/S interpreted by me (1pt. min.). @ -None done What testing was considered but not performed or refused? (CT, X-rays, U/S, labs)? Why? @ -None What meds were considered but not given or refused? Why? @ -None Did you discuss the management of the patient with other professionals (p rofessionals i.e. , JOANA, GOVERNMENT GUARD, lab, RT, psych nurse, medical social consultant, associate director qa, teacher, operations officer trust department, counseling case manager)? Give summary @ -No Was smoking cessation discussed for >3mins.? @ -No Was critical care preformed (if so, how long)? @ -No Were there social determinants of health that impacted care today? How? (Homelessness, low income, unemployed, alcoholism, drug addiction, transportation, low edu. Level, literacy, decrease access to med. care, intermediate, rehab)? @ -Alcohol abuse Was there de-escalation of care discussed even if they declined (Discuss DNR or withdrawal of care, Hospice)? DNR status @ -No What co-morbidities impacted this encounter? (DM, HTN, Smoking, COPD, CAD, Cancer, CVA, ARF, Chemo, Hep., AIDS, mental health diagnosis, sleep apnea, morbid obesity)? @ -Depression, bipolar disorder, alcohol abuse Was patient admitted / discharged? Hospital course, mention meds given and route, prescriptions, significant lab abnormalities, going to OR and other pertinent info. @ -Hospital course patient was discharged with outpatient treatment and a follow-up plan. Undiagnosed new problem with uncertain prognosis? @ -No Drug Therapy requiring intensive monitoring for toxicity (Heparin, Nitro, Insulin, Cardizem)? @ -No Were any procedures done? @ -No Diagnosis/symptom? @ -Adjustment disorder, alcohol intoxication, bipolar disorder Acute, or Chronic, or Acute on Chronic? @ -Acute on chronic Uncomplicated (without systemic symptoms) or Complicated (systemic symptoms)? @ -Complicated Side effects of treatment? @ -No Exacerbation, Progression, or Severe Exacerbation? @ -No Poses a threat to life or bodily function? How? (Chest pain, [place], [place], pneumonia, PE, COPD, DKA, ARF, appy, cholecystitis, CVA, Diverticulitis, Homicidal, Suicidal, threat to staff... and all critical care pts) @ -Potential if continued activity (Luigi Up) Disposition <Marciano Beatty - Last Filed: 08/24/23 05:33> Is patient prescribed a controlled substance at d/c from ED?: No Decision Date: 08/24/23 Decision Time: 15:21 <Luigi Up - Last Filed: 08/24/23 15:21> Clinical Impression: Adjustment reaction of adult life, Bipolar disorder, Alcohol intoxication Disposition: HOME SELF-CARE Condition: Good Instructions (If sedation given, give patient instructions): Bipolar Disorder (ED), Suicide Prevention (ED), Alcohol Intoxication (ED), Abuse of Alcohol (ED), Mood Disorders (ED) Referrals: None,Stated [Primary Care Provider] - 1-2 days
[2023-08-24 15:48] VITALS: BP 142/91; PULSE 78; RESP 18; TEMP 97.4
[2023-08-25] MEDS ORDERED: THIAMINE 100 MG TAB PO SCH (09:00)
== END 2023-08-24 15:38 | disposition home or self-care (01) ==
LOC: EC 22:35
DX: F43.20 Adjustment disorder, unspecified (principal); F31.9 Bipolar disorder, unspecified; F10.129 Alcohol abuse with intoxication, unspecified; F17.200 Nicotine dependence, unspecified, uncomplicated; F12.90 Cannabis use, unspecified, uncomplicated; F14.90 Cocaine use, unspecified, uncomplicated; F15.90 Other stimulant use, unspecified, uncomplicated
CPT/HCPCS: 82075; 99285

== ENCOUNTER 2023-08-29 20:09 | Emergency (ER) | payer OTHER ==
--- NOTE | 2023-08-29 21:51 | XR ---
PROCEDURE: XR shoulder complete RT - 3V DATE AND TIME: 08/29/2023 9:08 PM CLINICAL INDICATION: PHH; shoulder pain TECHNIQUE: Department protocol COMPARISON: 10/19/2017 FINDINGS / IMPRESSION: There is no fracture or malalignment. No focal skeletal findings. No incidental findings.
--- NOTE | 2023-08-29 22:17 | ED ---
Psych HPI - General Source: RN notes reviewed, old records reviewed - History of Present Illness MD Complaint: feels depressed, altered mental status -: days(s) Associated Psychiatric Symptoms: depression, racing thoughts Quality: intermittent Improves With: none, medication Context: recent alcohol abuse Associated Symptoms: denies other symptoms <Tucker Lopez - Last Filed: 08/30/23 02:57> <Uche Shane - Last Filed: 08/30/23 11:50> - General Source: patient Mode of arrival: ambulatory <Linda Lenz - Last Filed: 09/04/23 19:53> - General Stated Complaint: flu like symptoms as well as sucidal mental health Time Seen by Provider: 08/29/23 20:30 - History of Present Illness Initial Comments: 37 male to ER for evaluation of alcohol intoxication difficulty with sleep (Tucker Lopez) 37-year-old male well-known to the emergency department presents today for s everal complaints. Reports to full body aches, right shoulder pain and suicidal ideations. Patient states that he woke up with some body aches, nausea and cough. Does have concern for influenza. Denies any sick contacts with similar symptoms. He also admits to chronic right shoulder pain. Also admits to suicidal ideations without a plan. Also has feelings that he wants to hurt other people. Patient presents on his own accord without petition. (Linda Lenz) - Related Data Home Medications Medication Instructions Recorded Confirmed Multivitamins, Thera [Multivitamin 1 tab PO DAILY 08/29/23 08/29/23 (formulary)] Previous Rx's Medication Instructions Recorded DULoxetine HCL [Cymbalta] 90 mg PO DAILY 30 Days #90 cap 08/07/23 Folic Acid 1 mg PO DAILY tab 08/07/23 Ibuprofen [Motrin] 600 mg PO Q6HR PRN tab 08/07/23 Nicotine Gum (Polacrilex) 2 mg BUCCAL Q4HR PRN 30 Days #180 08/07/23 [Nicorette] pieceofgum QUEtiapine [SEROquel] 200 mg PO HS 30 Days #30 tab 08/07/23 Thiamine [Vitamin B-1] 100 mg PO DAILY tab 08/07/23 Allergies Allergy/AdvReac Type Severity Reaction Status Date / Time No Known Allergies Allergy Verified 08/29/23 21:19 Review of Systems ROS Other: All systems not noted in ROS Statement are negative. <Tucker Lopez - Last Filed: 08/30/23 02:57> ROS Other: All systems not noted in ROS Statement are negative. <AcostaUche - Last Filed: 08/30/23 11:50> ROS Other: All systems not noted in ROS Statement are negative. <Linda Lenz Herb - Last Filed: 09/04/23 19:53> ROS Statement: Those systems with pertinent positive or pertinent negative responses have been documented in the HPI. Past Medical History Past Medical History: Deep Vein Thrombosis (DVT), Thyroid Disorder Additional Past Medical History / Comment(s): ETOH abuse, past withdrawls with tremors/nausea/seizure, chronic low back pain, recent R knee/leg pain, DVT R leg, Catogory 5 blood disorder. History of Any Multi-Drug Resistant Organisms: None Reported Past Surgical History: Cholecystectomy, Orthopedic Surgery Additional Past Surgical History / Comment(s): right knee tendon surgery Past Anesthesia/Blood Transfusion Reactions: Motion Sickness Additional Past Anesthesia/Blood Transfusion Reaction / Comment(s): Clausterphobia. Past Psychological History: Anxiety, Bipolar, Depression Smoking Status: Current every day smoker Past Alcohol Use History: Daily, Heavy Past Drug Use History: Cocaine, Marijuana, Methamphetamine - Past Family History Father History Unknown: Yes Family Medical History: CVA/TIA Additional Family Medical History / Comment(s): Unable to obtain family history secondary altered mentation Mother Family Medical History: Congestive Heart Failure (CHF) <JayroLinda wise Herb - Last Filed: 09/04/23 19:53> General Exam General appearance: alert, in no apparent distress Head exam: Present: atraumatic, normocephalic, normal inspection Eye exam: Present: normal appearance, PERRL, EOMI. Absent: scleral icterus, conjunctival injection, periorbital swelling ENT exam: Present: normal exam, mucous membranes moist Neck exam: Present: normal inspection. Absent: tenderness, meningismus, lymphadenopathy Respiratory exam: Present: normal lung sounds bilaterally. Absent: respiratory distress, wheezes, rales, rhonchi, stridor Cardiovascular Exam: Present: regular rate, normal rhythm, normal heart sounds. Absent: systolic murmur, diastolic murmur, rubs, gallop, clicks GI/Abdominal exam: Present: soft, normal bowel sounds. Absent: distended, tenderness, guarding, rebound, rigid Extremities exam: Present: normal inspection, full ROM, normal capillary refill. Absent: tenderness, pedal edema, joint swelling, calf tenderness Back exam: Present: normal inspection Neurological exam: Present: alert, oriented X3, CN II-XII intact Psychiatric exam: Present: normal affect, normal mood Skin exam: Present: warm, dry, intact, normal color. Absent: rash <Tucker Lopez - Last Filed: 08/30/23 02:57> Limitations: no limitations General appearance: alert, in no apparent distress Head exam: Present: atraumatic, normocephalic, normal inspection Eye exam: Present: normal appearance, PERRL, EOMI. Absent: scleral icterus, conjunctival injection, periorbital swelling ENT exam: Present: normal exam, mucous membranes moist Neck exam: Present: normal inspection. Absent: tenderness, meningismus, lympha denopathy Respiratory exam: Present: normal lung sounds bilaterally. Absent: respiratory distress, wheezes, rales, rhonchi, stridor Cardiovascular Exam: Present: regular rate, normal rhythm, normal heart sounds. Absent: systolic murmur, diastolic murmur, rubs, gallop, clicks GI/Abdominal exam: Present: soft, normal bowel sounds. Absent: distended, tenderness, guarding, rebound, rigid Extremities exam: Present: tenderness (Shoulder tenderness to palpation. Limited abduction at the right shoulder), normal capillary refill. Absent: pedal edema, joint swelling, calf tenderness Back exam: Present: normal inspection Neurological exam: Present: alert, oriented X3, CN II-XII intact Psychiatric exam: Present: normal affect, normal mood Skin exam: Present: warm, dry, intact, normal color. Absent: rash <Linda Lenz - Last Filed: 09/04/23 19:53> Course <Tucker Lopez - Last Filed: 08/30/23 02:57> Vital Signs 08/29/23 08/30/23 08/30/23 20:24 07:32 12:08 Temperature 97.7 F 98.0 F 98.9 F Pulse Rate 103 H 89 84 Respiratory 20 18 16 Rate Blood Pressure 134/75 149/84 169/94 O2 Sat by Pulse 98 98 98 Oximetry - Reevaluation(s) Reevaluation #1: 08/30/23 02:59 Medical records reviewed (Tucker Lopez) Reevaluation #2: 08/30/23 02:59 Patient symptoms improved here in the ER (Tucker Lopez) Reevaluation #3: 08/30/23 02:59 Patient informed of results questions answered feels well able to be discharged home (Tucker Lopez) Medical Decision Making <uTcker Lopez - Last Filed: 08/30/23 02:57> <Uche Shane - Last Filed: 08/30/23 11:50> <Linda Lenz - Last Filed: 09/04/23 19:53> - Medical Decision Making 37 male to the ER for psychiatric evaluation and alcohol intoxication (Tucker Lopez) Patient medically cleared by previous provider. Was awaiting EPS evaluation. EPS Charly evaluated the patient spoke with psychiatry and cleared the patient for discharge home. Patient does not meet inpatient criteria. Patient will be discharged home with a safety plan. (Uche Shane) Was pt. sent in by a medical professional or institution (, PA, COMMERCIAL LITIGATION ASSOCIATE, urgent care, hospital, or [facility]...) When possible be specific @ -No Did you speak to anyone other than the patient for history (EMS, parent, family, police, friend...)? What history was obtained from this source @ -No Did you review nursing and triage notes (agree or disagree)? Why? @ -I reviewed and agree with nursing and triage notes Were old charts reviewed (outside hosp., previous admission, EMS record, old EKG, old radiological studies, urgent care reports/EKG's, [facility] records)? Report findings @ -No old charts were reviewed Differential Diagnosis (chest pain, altered mental status, abdominal pain women, abdominal pain men, vaginal bleeding, weakness, fever, dyspnea, syncope, headache, dizziness, GI bleed, back pain, seizure, CVA, palpatations, mental health, musculoskeletal)? @ -Differential Musculoskeletal Muscular strain, contusion, ligament sprain, fracture, arthritis, septic ar thritis, bursitis, cellulitis, muscle spasm, nerve compression, DVT, arterial occlusion, herpes zoster, electrolyte abnormality, tumor.... This is not meant to be in all inclusive list Differential Mental Health Depression, anxiety, bipolar, psychosis, schizophrenia, borderline personality, situational depression, adjustment disorder, behavioral disorder, brain tumor, malingering, substance abuse, encephalopathy, medication reaction, dementia, hypothyroidism, degenerative neurologic disorder, lupus.... This is not meant to be all-inclusive list EKG interpreted by me (3pts min.). @ -Not done X-rays interpreted by me (1pt min.). @ -Yes and demonstrates no acute process CT interpreted by me (1pt min.). @ -None done U/S interpreted by me (1pt. min.). @ -None done What testing was considered but not performed or refused? (CT, X-rays, U/S, labs)? Why? @ -None What meds were considered but not given or refused? Why? @ -None Did you discuss the management of the patient with other professionals (professionals i.e. , PA, COMMERCIAL LITIGATION ASSOCIATE, lab, RT, psych nurse, social work lecturer, quantitative associate, teacher, nuclear security officer, home health care case manager)? Give summary @ -EPS Was smoking cessation discussed for >3mins.? @ -No Was critical care preformed (if so, how long)? @ -No Were there social determinants of health that impacted care today? How? (Homelessness, low income, unemployed, alcoholism, drug addiction, transpo rtation, low edu. Level, literacy, decrease access to med. care, prison, rehab)? @ -No Was there de-escalation of care discussed even if they declined (Discuss DNR or withdrawal of care, Hospice)? DNR status @ -No What co-morbidities impacted this encounter? (DM, HTN, Smoking, COPD, CAD, Cancer, CVA, ARF, Chemo, Hep., AIDS, mental health diagnosis, sleep apnea, morbid obesity)? @ -None Was patient admitted / discharged? Hospital course, mention meds given and route, prescriptions, significant lab abnormalities, going to OR and other pertinent info. @ -On arrival patient was seen and evaluated in room 13. Thorough history and physical exam was performed. Right shoulder x-rays performed. Patient is swabbed for influenza, COVID and RSV. Swab was negative. Patient was given a dose of Toradol. Testing is negative. Due to his reported suicidal ideations EPS was consulted. Patient is intoxicated and therefore awaiting sobriety. He will be signed out to oncoming physician Undiagnosed new problem with uncertain prognosis? @ -No Drug Therapy requiring intensive monitoring for toxicity (Heparin, Nitro, Insulin, Cardizem)? @ -No Were any procedures done? @ -No Diagnosis/symptom? @ -Acute myalgias, acute exacerbation of chronic right shoulder pain, suicidal ideations Acute, or Chronic, or Acute on Chronic? @ -Acute on chronic Uncomplicated (without systemic symptoms) or Complicated (systemic symptoms)? @ -Complicated Side effects of treatment? @ -No Exacerbation, Progression, or Severe Exacerbation? @ -No Poses a threat to life or bodily function? How? (Chest pain, [place], NC, pneumonia, PE, COPD, DKA, ARF, appy, cholecystitis, CVA, Diverticulitis, Homicidal, Suicidal, threat to staff... and all critical care pts) @ -No (Linda Lenz) - Lab Data Lab Results 08/29/23 Range/Units 20:58 Influenza Type A (PCR) Not Detected (Not Detectd) Influenza Type B (PCR) Not Detected (Not Detectd) RSV (PCR) Not Detected (Not Detectd) SARS-CoV-2 (PCR) Not Detected (Not Detectd) Disposition <Tucker Lopez - Last Filed: 08/30/23 02:57> Is patient prescribed a controlled substance at d/c from ED?: No Time of Disposition: 11:50 <Uche Shane - Last Filed: 08/30/23 11:50> <Linda Lenz - Last Filed: 09/04/23 19:53> Clinical Impression: Myalgia, Chronic pain, Suicidal ideations, Encounter for psychiatric assessment Disposition: HOME SELF-CARE Condition: Good Instructions (If sedation given, give patient instructions): Suicide Prevention (ED) Additional Instructions: follow safety plan Referrals: None,Stated [Primary Care Provider] - 1-2 days
[2023-08-30] MEDS: KETOROLAC 15 MG/ML 1 ML VIAL IM STA (01:54)
[2023-08-30 12:31] VITALS: BP 169/94; PULSE 84; RESP 16; TEMP 98.9
== END 2023-08-30 12:16 | disposition home or self-care (01) ==
LOC: EC 20:09
DX: Z00.8 Encounter for other general examination (principal); G89.29 Other chronic pain; R45.851 Suicidal ideations; M79.10 Myalgia, unspecified site; F17.200 Nicotine dependence, unspecified, uncomplicated; Z90.49 Acquired absence of other specified parts of digestive tract; Z11.52 Encounter for screening for COVID-19
CPT/HCPCS: 82075; 87636; 99285

== ENCOUNTER 2023-09-04 22:57 | Emergency (ER) | payer OTHER ==
--- NOTE | 2023-09-04 23:30 | ED ---
General Adult HPI - General Source: patient Mode of arrival: ambulatory Limitations: no limitations <Canelo Sauceda - Last Filed: 09/04/23 23:30> <Kirit Monroy - Last Filed: 09/05/23 02:19> <Uche Shane - Last Filed: 09/05/23 13:38> - General Chief complaint: Psychiatric Symptoms Stated complaint: Mental health Time Seen by Provider: 09/04/23 23:07 - History of Present Illness Initial comments: Patient presenting to the ED with complaints of homicidal and suicidal ideations. (Canelo Sauceda) Dictation was produced using [employer] dictation software. please excuse any grammatical, word or spelling errors. Chief Complaint: 38-year-old male presents to the emergency department suicidal ideation History of Present Illness: 38-year-old male presents emergency department for alcohol intoxication, suicidal ideation and right-sided calf pain. Patient states that he is feeling suicidal. He had multiple alcoholic beverages today. Patient also uses illicit drugs. Patient suicidal denies any specific plan. Denies any homicidal ideation. Patient states that he deals with chronic right- sided pain secondary to traumatic injury suffered in the past. The ROS documented in this emergency department record has been reviewed and confirmed by me. Those systems with pertinent positive or negative responses have been documented in the HPI. All other systems are other negative and/or noncontributory. (Kirit Monroy) - Related Data Home Medications Medication Instructions Recorded Confirmed Multivitamins, Thera [Multivitamin 1 tab PO DAILY 08/29/23 09/05/23 (formulary)] Previous Rx's Medication Instructions Recorded DULoxetine HCL [Cymbalta] 90 mg PO DAILY 30 Days #90 cap 08/07/23 Ibuprofen [Motrin] 600 mg PO Q6HR PRN tab 08/07/23 Nicotine Gum (Polacrilex) 2 mg BUCCAL Q4HR PRN 30 Days #180 08/07/23 [Nicorette] pieceofgum QUEtiapine [SEROquel] 200 mg PO HS 30 Days #30 tab 08/07/23 Thiamine [Vitamin B-1] 100 mg PO DAILY tab 08/07/23 Allergies Allergy/AdvReac Type Severity Reaction Status Date / Time No Known Allergies Allergy Verified 09/05/23 09:17 Review of Systems ROS Other: All systems not noted in ROS Statement are negative. <Canelo Sauceda - Last Filed: 09/04/23 23:30> ROS Other: All systems not noted in ROS Statement are negative. <Kirit Monroy - Last Filed: 09/05/23 02:19> ROS Other: All systems not noted in ROS Statement are negative. <Uche Shane - Last Filed: 09/05/23 13:38> ROS Statement: Those systems with pertinent positive or pertinent negative responses have been documented in the HPI. Past Medical History Past Medical History: Deep Vein Thrombosis (DVT), Thyroid Disorder Additional Past Medical History / Comment(s): ETOH abuse, past withdrawls with tremors/nausea/seizure, chronic low back pain, recent R knee/leg pain, DVT R leg, Catogory 5 blood disorder. History of Any Multi-Drug Resistant Organisms: None Reported Past Surgical History: Cholecystectomy, Orthopedic Surgery Additional Past Surgical History / Comment(s): right knee tendon surgery Past Anesthesia/Blood Transfusion Reactions: Motion Sickness Additional Past Anesthesia/Blood Transfusion Reaction / Comment(s): Clausterphobia. Past Psychological History: Anxiety, Bipolar, Depression Smoking Status: Current every day smoker Past Alcohol Use History: Daily, Heavy Past Drug Use History: Cocaine, Marijuana, Methamphetamine - Past Family History Father History Unknown: Yes Family Medical History: CVA/TIA Additional Family Medical History / Comment(s): Unable to obtain family history secondary altered mentation Mother Family Medical History: Congestive Heart Failure (CHF) <Canelo Sauceda - Last Filed: 09/04/23 23:30> General Exam Limitations: no limitations <Canelo Sauceda - Last Filed: 09/04/23 23:30> <Kirit Monroy - Last Filed: 09/05/23 02:19> - General Exam Comments Initial Comments: Visual Physical Exam Vital signs reviewed General: no acute distress. Head: Normocephalic, atraumatic Eyes: PERRLA, EOMI ENT: Airway patent Chest: Nonlabored breathing Skin: No visual rash, normal skin tone Neuro: Alert Musculoskeletal: No gross abnormalities (Canelo Sauceda) General: Well-appearing, nontoxic, no acute distress. Head: Normocephalic, atraumatic Eyes: PERRLA, EOMI ENT: Airway patent Chest: Nonlabored breathing Skin: No visual rash, normal skin tone Neuro: Alert and oriented 3 Musculoskeletal: No gross abnormalities (Kirit Monroy) Course Vital Signs 09/04/23 23:08 Temperature 98.1 F Pulse Rate 89 Respiratory 18 Rate Blood Pressure 138/83 O2 Sat by Pulse 100 Oximetry Medical Decision Making <Canelo Sauceda - Last Filed: 09/04/23 23:30> <Kirit Monroy - Last Filed: 09/05/23 02:19> - Lab Data Result diagrams: 09/05/23 10:46 09/05/23 10:46 <Uche Shane - Last Filed: 09/05/23 13:38> - Medical Decision Making Quicknote portion performed. Signed Canelo Sauceda PA-C (Canelo Sauceda) Was pt. sent in by a medical professional or institution (JOANA Duff, CYBER SYSTEMS ADMINISTRATOR, urgent care, hospital, or correction...) When possible be specific @ -No Did you speak to anyone other than the patient for history (EMS, parent, family, police, friend...)? What history was obtained from this source @ -No Did you review nursing and triage notes (agree or disagree)? Why? @ -I reviewed and agree with nursing and triage notes Were old charts reviewed (outside hosp., previous admission, EMS record, old EKG, old radiological studies, urgent care reports/EKG's, correction records)? Report findings @ -No old charts were reviewed Differential Diagnosis (chest pain, altered mental status, abdominal pain women, abdominal pain men, vaginal bleeding, musculoskeletal, weakness, fever, dyspnea, syncope, headache, dizziness, GI bleed, back pain, seizure, CVA, palpatations, mental health)? @ -Differential Mental Health: Depression, anxiety, bipolar, psychosis, schizophrenia, borderline personality, situational depression, adjustment disorder, behavioral disorder, brain tumor, malingering, substance abuse, encephalopathy, medication reaction, dementia, hypothyroidism, degenerative neurologic disorder, lupus.... This is not meant to be all-inclusive list EKG interpreted by me (3pts min.). @ -None done X-rays interpreted by me (1pt min.). @ -None done CT interpreted by me (1pt min.). @ -None done U/S interpreted by me (1pt. min.). @ -Ultrasound of the right lower extremity shows no DVT What testing was considered but not performed or refused? (CT, X-rays, U/S, labs)? Why? @ -None What meds were considered but not given or refused? Why? @ -None Did you discuss the management of the patient with other professionals (professionals i.e. , PA, CYBER SYSTEMS ADMINISTRATOR, lab, RT, psych nurse, social services analyst, meter and regulator shop supervisor, teacher, privacy officer, therapeutic case manager)? Give summary @ -No Was smoking cessation discussed for >3mins.? @ -No Was critical care preformed (if so, how long)? @ -No Were there social determinants of health that impacted care today? How? (Homelessness, low income, unemployed, alcoholism, drug addiction, transportation, low edu. Level, literacy, decrease access to med. care, assisted, rehab)? @ -No Was there de-escalation of care discussed even if they declined (Discuss DNR or withdrawal of care, Hospice)? DNR status @ -No What co-morbidities impacted this encounter? (DM, HTN, Smoking, COPD, CAD, Cancer, CVA, ARF, Chemo, Hep., AIDS, mental health diagnosis, sleep apnea, morbid obesity)? @ -None Was patient admitted / discharged? Hospital course, mention meds given and route, prescriptions, significant lab abnormalities, going to OR and other pertinent info. @ -38-year-old male presents to the emergency department for suicidal ideation. Patient is well-known to the emergency department for EtOH intoxication. Vital signs stable. Patient complaining of symptoms concerning for DVT. Ultrasound of the right lower extremity shows no DVT. She was positive for EtOH. Pending sobriety for medical clearance for EPS evaluation. Undiagnosed new problem with uncertain prognosis? @ -No Drug Therapy requiring intensive monitoring for toxicity (Heparin, Nitro, Insul in, Cardizem)? @ -No Were any procedures done? @ -No Diagnosis/symptom? Acute, or Chronic, or Acute on Chronic? Uncomplicated (without systemic symptoms) or Complicated (systemic symptoms)? @ -EtOH intoxication, suicidal ideation Side effects of treatment? @ -No Exacerbation, Progression, or Severe Exacerbation? @ -No Poses a threat to life or bodily function? How? (Chest pain, USA, GA, pneumonia, PE, COPD, DKA, ARF, appy, cholecystitis, CVA, Diverticulitis, Homicidal, Suicidal, threat to staff... and all critical care pts) @ -Yes (Kirit Monroy) Patient medically cleared by previous provider. EPS Charly evaluated the patient. Determined that he does meet inpatient criteria. Clinical certificate completed by myself. (Uche Shane) - Lab Data Lab Results 09/04/23 09/05/23 09/05/23 Range/Units 23:52 10:46 10:46 WBC 5.6 (3.8-10.6) k/uL RBC 4.67 (4.30-5.90) m/uL Hgb 15.7 (13.0-17.5) gm/dL Hct 45.3 (39.0-53.0) % MCV 96.8 (80.0-100.0) fL MCH 33.7 (25.0-35.0) pg MCHC 34.8 (31.0-37.0) g/dL RDW 13.3 (11.5-15.5) % Plt Count 194 (150-450) k/uL MPV 8.1 Neutrophils % 62 % Lymphocytes % 24 % Monocytes % 8 % Eosinophils % 2 % Basophils % 1 % Neutrophils # 3.5 (1.3-7.7) k/uL Lymphocytes # 1.4 (1.0-4.8) k/uL Monocytes # 0.4 (0-1.0) k/uL Eosinophils # 0.1 (0-0.7) k/uL Basophils # 0.1 (0-0.2) k/uL Sodium 138 (137-145) mmol/L Potassium 4.2 (3.5-5.1) mmol/L Chloride 108 H (98-107) mmol/L Carbon Dioxide 25 (22-30) mmol/L Anion Gap 5 mmol/L BUN 6 L (9-20) mg/dL Creatinine 0.72 (0.66-1.25) mg/dL Est GFR (CKD-EPI)AfAm >90 (>60 ml/min/1.73 sqM) Est GFR (CKD-EPI)NonAf >90 (>60 ml/min/1.73 sqM) Glucose 103 H (74-99) mg/dL Calcium 8.6 (8.4-10.2) mg/dL Urine Opiates Screen Not Detected (NotDetected) Ur Oxycodone Screen Not Detected (NotDetected) Urine Methadone Screen Not Detected (NotDetected) Ur Barbiturates Screen Not Detected (NotDetected) U Tricyclic Antidepress Detected H (NotDetected) Ur Phencyclidine Scrn Not Detected (NotDetected) Ur Amphetamines Screen Detected H (NotDetected) U Methamphetamines Scrn Not Detected (NotDetected) U Benzodiazepines Scrn Detected H (NotDetected) Urine Cocaine Screen Not Detected (NotDetected) U Marijuana (THC) Screen Not Detected (NotDetected) Influenza Type A (PCR) (Not Detectd) Influenza Type B (PCR) (Not Detectd) RSV (PCR) (Not Detectd) SARS-CoV-2 (PCR) (Not Detectd) 09/05/23 Range/Units 10:46 WBC (3.8-10.6) k/uL RBC (4.30-5.90) m/uL Hgb (13.0-17.5) gm/dL Hct (39.0-53.0) % MCV (80.0-100.0) fL MCH (25.0-35.0) pg MCHC (31.0-37.0) g/dL RDW (11.5-15.5) % Plt Count (150-450) k/uL MPV Neutrophils % % Lymphocytes % % Monocytes % % Eosinophils % % Basophils % % Neutrophils # (1.3-7.7) k/uL Lymphocytes # (1.0-4.8) k/uL Monocytes # (0-1.0) k/uL Eosinophils # (0-0.7) k/uL Basophils # (0-0.2) k/uL Sodium (137-145) mmol/L Potassium (3.5-5.1) mmol/L Chloride (98-107) mmol/L Carbon Dioxide (22-30) mmol/L Anion Gap mmol/L BUN (9-20) mg/dL Creatinine (0.66-1.25) mg/dL Est GFR (CKD-EPI)AfAm (>60 ml/min/1.73 sqM) Est GFR (CKD-EPI)NonAf (>60 ml/min/1.73 sqM) Glucose (74-99) mg/dL Calcium (8.4-10.2) mg/dL Urine Opiates Screen (NotDetected) Ur Oxycodone Screen (NotDetected) Urine Methadone Screen (NotDetected) Ur Barbiturates Screen (NotDetected) U Tricyclic Antidepress (NotDetected) Ur Phencyclidine Scrn (NotDetected) Ur Amphetamines Screen (NotDetected) U Methamphetamines Scrn (NotDetected) U Benzodiazepines Scrn (NotDetected) Urine Cocaine Screen (NotDetected) U Marijuana (THC) Screen (NotDetected) Influenza Type A (PCR) Not Detected (Not Detectd) Influenza Type B (PCR) Not Detected (Not Detectd) RSV (PCR) Not Detected (Not Detectd) SARS-CoV-2 (PCR) Not Detected (Not Detectd) Disposition <Canelo Sauceda - Last Filed: 09/04/23 23:30> <Kirit Monroy - Last Filed: 09/05/23 02:19> <Uche Shane - Last Filed: 09/05/23 13:38> Clinical Impression: Acute psychosis Disposition: TRANSFER TO PSYCH HOSP/UNIT Condition: Stable Referrals: None,Stated [Primary Care Provider] - 1-2 days
[2023-09-04 23:39] VITALS: RESP 18
[2023-09-05 00:15] LABS: Amphetamine Screen,Urine Detected (NotDetected); Barbiturate Screen,Urine Not Detected (NotDetected); Benzodiazepines Screen,Urine Detected (NotDetected); Cocaine Screen,Urine Not Detected (NotDetected); Methadone Screen, Urine Not Detected (NotDetected); Opiate Screen,Urine Not Detected (NotDetected); Oxycodone Screen, Urine Not Detected (NotDetected); Phencyclidine Screen,Urine Not Detected (NotDetected); Tricyclic Antidepressant,Urine Detected (NotDetected); Urn Cannabinoid Scrn Not Detected (NotDetected)
[2023-09-05] MEDS: oxyCODONE-APAP 7.5-325MG 1 EACH TAB PO STA (00:38)
--- NOTE | 2023-09-05 01:44 | US ---
EXAM: US Duplex Right Lower Extremity Veins CLINICAL HISTORY: Calf pain TECHNIQUE: Real-time duplex ultrasound scan of the right lower extremity veins integrating B-mode two-dimensional vascular structure, Doppler spectral analysis, color flow Doppler imaging and compression. COMPARISON: 10/02/2022 FINDINGS: Deep veins: Unremarkable. No DVT in the visualized common femoral, femoral, proximal deep femoral or popliteal veins. The veins demonstrate normal color flow, are normally compressible, with normal phasic flow and/or augmentation response. Superficial veins: Unremarkable. No thrombus in the visualized great saphenous vein. Soft tissues: No acute abnormality. No popliteal cyst. IMPRESSION: No evidence of deep venous thrombosis.
[2023-09-05 11:06] LABS: Basophils # (A) 0.1 k/uL (0-0.2); Basophils % (A) 1 %; Eosinophils # (A) 0.1 k/uL (0-0.7); Eosinophils % (A) 2 %; HCT 45.3 % (39.0-53.0); HGB 15.7 gm/dL (13.0-17.5); Lymphocytes # (A) 1.4 k/uL (1.0-4.8); Lymphocytes % (A) 24 %; MCH 33.7 pg (25.0-35.0); MCHC 34.8 g/dL (31.0-37.0); MCV 96.8 fL (80.0-100.0); Mean Platelet Volume 8.1; Monocytes # (A) 0.4 k/uL (0-1.0); Monocytes % (A) 8 %; Neutrophils # (A) 3.5 k/uL (1.3-7.7); Neutrophils % (A) 62 %; Platelet Count 194 k/uL (150-450); RBC 4.67 m/uL (4.30-5.90); RDW 13.3 % (11.5-15.5); WBC 5.6 k/uL (3.8-10.6)
[2023-09-05 11:21] LABS: African American GFR (CKD) >90 (>60 ml/min/1.73 sqM); Anion Gap 5 mmol/L; Blood Urea Nitrogen 6 mg/dL (9-20); Calcium 8.6 mg/dL (8.4-10.2); Carbon Dioxide 25 mmol/L (22-30); Chloride 108 mmol/L (98-107); Glucose 103 mg/dL (74-99); Non-African American GFR(CKD) >90 (>60 ml/min/1.73 sqM); Potassium 4.2 mmol/L (3.5-5.1); Sodium 138 mmol/L (137-145)
[2023-09-05] MEDS: IBUPROFEN 600 MG TAB PO STA (12:08)
[2023-09-05] MEDS: LORazepam 1 MG TAB PO STA (19:04)
[2023-09-05 19:26] VITALS: BP 146/94; PULSE 85; TEMP 98.4
== END 2023-09-05 19:10 ==
LOC: EC 22:57
DX: F23 Brief psychotic disorder (principal); F10.129 Alcohol abuse with intoxication, unspecified; M79.661 Pain in right lower leg; F17.200 Nicotine dependence, unspecified, uncomplicated; Z11.52 Encounter for screening for COVID-19
CPT/HCPCS: 36415; 80048; 80306; 82075; 85025; 87636; 99285

== ENCOUNTER 2024-08-13 02:29 | Observation (INO) | payer OTHER ==
[2024-08-13 02:55] LABS: Appearance,Urine Clear (Clear); Bilirubin,Urine Negative (Negative); Blood,Urine Negative (Negative); Color,Urine Colorless; Glucose,Urine (UA) Negative (Negative); Ketones,Urine Negative (Negative); Leukocyte Esterase,Urine Negative (Negative); Nitrite,Urine Negative (Negative); PH, Urine 5.5 (5.0-8.0); Protein,Urine Negative (Negative); Specific Gravity,Urine 1.003 (1.001-1.035); Urobilinogen,Urine <2.0 mg/dL (<2.0)
--- NOTE | 2024-08-13 03:12 | CT ---
EXAM: CT Head Without Intravenous Contrast CLINICAL HISTORY: ITS.REASON CT Reason: head injury TECHNIQUE: Axial computed tomography images of the head/brain without intravenous contrast. CTDI is 45.3 mGy and DLP is 1079 mGy-cm. This CT exam was performed using one or more of the following dose reduction techniques: automated exposure control, adjustment of the mA and/or kV according to patient size, and/or use of iterative reconstruction technique. COMPARISON: CT Head dated 01/01/23 and 02/11/2017 FINDINGS: Brain: Mild periventricular and left parietal white matter hypoattenuation, similar to both prior exams. May reflect chronic small vessel disease. No hemorrhage. Ventricles: Unremarkable. No ventriculomegaly. Bones/joints: Unremarkable. No acute fracture. Soft tissues: Unremarkable. Sinuses: Unremarkable as visualized. No acute sinusitis. Mastoid air cells: Unremarkable as visualized. No mastoid effusion. IMPRESSION: No acute findings in the head/brain. EXAM: CT Cervical Spine Without Intravenous Contrast CLINICAL HISTORY: ITS.REASON CT Reason: head injury TECHNIQUE: Axial computed tomography images of the cervical spine without intravenous contrast. CTDI is 19.4 mGy and DLP is 595.2 mGy-cm. This CT exam was performed using one or more of the following dose reduction techniques: automated exposure control, adjustment of the mA and/or kV according to patient size, and/or use of iterative reconstruction technique. COMPARISON: CT Cervical Spine dated 04/07/2022 FINDINGS: Vertebrae: Straightening of the cervical lordosis. Discs/spinal canal/neural foramina: Degenerative changes notably at C5- 6, stable. No severe canal stenosis. Soft tissues: Unremarkable. IMPRESSION: No acute findings in the cervical spine.
--- NOTE | 2024-08-13 03:18 | XR ---
EXAM: XR Chest, 1 View CLINICAL HISTORY: ITS.REASON XR Reason: altered mental status TECHNIQUE: Frontal view of the chest. COMPARISON: No relevant prior studies available. FINDINGS: Lungs: Unremarkable. No consolidation. Pleural space: Unremarkable. No pneumothorax. Heart: Unremarkable. No cardiomegaly. Mediastinum: Unremarkable. Normal mediastinal contour. Bones/joints: Unremarkable. No acute fracture. IMPRESSION: No evidence of acute cardiopulmonary disease.
[2024-08-13 03:21] LABS: Amphetamine Screen,Urine Not Detected (NotDetected); Barbiturate Screen,Urine Detected (NotDetected); Benzodiazepines Screen,Urine Detected (NotDetected); Cocaine Screen,Urine Not Detected (NotDetected); Methadone Screen, Urine Not Detected (NotDetected); Opiate Screen,Urine Not Detected (NotDetected); Oxycodone Screen, Urine Not Detected (NotDetected); Phencyclidine Screen,Urine Not Detected (NotDetected); Tricyclic Antidepressant,Urine Not Detected (NotDetected); Urn Cannabinoid Scrn Not Detected (NotDetected)
[2024-08-13 03:39] LABS: Prothrombin Time 11.5 sec (10.0-12.5)
[2024-08-13 03:47] LABS: Basophils # (A) 0.1 k/uL (0-0.2); Basophils % (A) 1 %; Eosinophils # (A) 0.2 k/uL (0-0.7); Eosinophils % (A) 1 %; HGB 15.4 gm/dL (13.0-17.5); Lymphocytes # (A) 2.4 k/uL (1.0-4.8); Lymphocytes % (A) 15 %; MCH 30.7 pg (25.0-35.0); MCHC 32.8 g/dL (31.0-37.0); MCV 93.5 fL (80.0-100.0); Mean Platelet Volume 7.6; Monocytes # (A) 1.1 k/uL (0-1.0); Monocytes % (A) 7 %; Neutrophils # (A) 12.4 k/uL (1.3-7.7); Neutrophils % (A) 76 %; Platelet Count 348 k/uL (150-450); RBC 5.03 m/uL (4.30-5.90); RDW 14.5 % (11.5-15.5); WBC 16.3 k/uL (3.8-10.6)
[2024-08-13] MEDS: ONDANSETRON 4 MG/2 ML VIAL IVP STA (04:10)
[2024-08-13] MEDS: LORazepam 2 MG/ML INJ IV STA (04:11)
[2024-08-13 04:13] LABS: ALT 53 U/L (4-49); AST 95 U/L (17-59); African American GFR (CKD) >90 (>60 ml/min/1.73 sqM); Albumin 4.6 g/dL (3.5-5.0); Alkaline Phosphatase 92 U/L (38-126); Anion Gap 20 mmol/L; Blood Urea Nitrogen 8 mg/dL (9-20); Calcium 8.6 mg/dL (8.4-10.2); Carbon Dioxide 18 mmol/L (22-30); Chloride 98 mmol/L (98-107); Glucose 106 mg/dL (74-99); Non-African American GFR(CKD) >90 (>60 ml/min/1.73 sqM); Potassium 4.7 mmol/L (3.5-5.1); Sodium 136 mmol/L (137-145); Total Bilirubin 0.5 mg/dL (0.2-1.3); Total Protein 7.2 g/dL (6.3-8.2)
[2024-08-13 04:20] LABS: Alcohol 207 mg/dL
[2024-08-13] MEDS ORDERED: VANCOMYCIN IV PER PHARMACY 1 EACH MISC MISCELLANE PRN (04:34)
--- NOTE | 2024-08-13 04:47 | ED ---
Fall HPI - General Chief Complaint: Fall Stated Complaint: Fall Time Seen by Provider: 08/13/24 02:40 Source: patient, EMS Mode of arrival: EMS - History of Present Illness Initial Comments: 38-year-old male with past medical history of PE on Eliquis, polysubstance abus e, alcohol abuse who presents emergency department after he had a fall. It was reported that the patient was at a residential home when he fell and hit his right cheek on the ground. Patient does take anticoagulation. EMS was called. Patient has small abrasion to the right cheek. Has notable surrounding redness. States he was recently hospitalized at [facility] and he was diagnosed with a cellulitis. They were supposed to send an antibiotic to the pharmacy however he was discharged yesterday and was unable to pick it up yet. He also complains of some redness and swelling to his posterior right arm. He does admit to history of MRSA. He denies any fevers. Denies any other injuries with the fall. No other alleviating, precipitating modifying factors - Related Data Home Medications Medication Instructions Recorded Confirmed Multivitamins, Thera [Multivitamin 1 tab PO DAILY 08/29/23 09/05/23 (formulary)] Previous Rx's Medication Instructions Recorded DULoxetine HCL [Cymbalta] 90 mg PO DAILY 30 Days #90 cap 08/07/23 Ibuprofen [Motrin] 600 mg PO Q6HR PRN tab 08/07/23 Nicotine Gum (Polacrilex) 2 mg BUCCAL Q4HR PRN 30 Days #180 08/07/23 [Nicorette] pieceofgum QUEtiapine [SEROquel] 200 mg PO HS 30 Days #30 tab 08/07/23 Thiamine [Vitamin B-1] 100 mg PO DAILY tab 08/07/23 Allergies Allergy/AdvReac Type Severity Reaction Status Date / Time No Known Allergies Allergy Verified 08/13/24 02:34 Review of Systems ROS Statement: Those systems with pertinent positive or pertinent negative responses have been documented in the HPI. ROS Other: All systems not noted in ROS Statement are negative. Past Medical History Past Medical History: Deep Vein Thrombosis (DVT), Thyroid Disorder Additional Past Medical History / Comment(s): ETOH abuse, past withdrawls with tremors/nausea/seizure, chronic low back pain, recent R knee/leg pain, DVT R leg, Catogory 5 blood disorder. History of Any Multi-Drug Resistant Organisms: None Reported Past Surgical History: Cholecystectomy, Orthopedic Surgery Additional Past Surgical History / Comment(s): right knee tendon surgery Past Anesthesia/Blood Transfusion Reactions: Motion Sickness Additional Past Anesthesia/Blood Transfusion Reaction / Comment(s): Clausterphobia. Past Psychological History: Anxiety, Bipolar, Depression Smoking Status: Current every day smoker Past Alcohol Use History: Daily, Heavy Past Drug Use History: Cocaine, Marijuana, Methamphetamine - Past Family History Father History Unknown: Yes Family Medical History: CVA/TIA Additional Family Medical History / Comment(s): Unable to obtain family history secondary altered mentation Mother Family Medical History: Congestive Heart Failure (CHF) General Exam Limitations: altered mental status General appearance: appears intoxicated Head exam: Present: normocephalic Eye exam: Present: normal appearance, PERRL, EOMI. Absent: scleral icterus, conjunctival injection, periorbital swelling ENT exam: Present: other (Abrasion right cheek. Surrounding redness, induration. There is an area of scabbing with honey colored crust) Neck exam: Present: normal inspection. Absent: tenderness, meningismus, lymphadenopathy Cardiovascular Exam: Present: normal rhythm, tachycardia GI/Abdominal exam: Present: soft, normal bowel sounds. Absent: distended, tenderness, guarding, rebound, rigid Neurological exam: Present: altered Psychiatric exam: Present: agitated Skin exam: Present: other (Posterior mid forearm swelling and erythema consistent with abscess/cellulitis) Course Vital Signs 08/13/24 08/13/24 02:31 05:24 Temperature 98.1 F Pulse Rate 118 H 107 H Respiratory 18 15 Rate Blood Pressure 142/82 98/53 O2 Sat by Pulse 97 97 Oximetry Medical Decision Making - Medical Decision Making Was pt. sent in by a medical professional or institution (, PA, DELIVERER OUTSIDE, urgent care, hospital, or chcf...) When possible be specific @ -[No] Did you speak to anyone other than the patient for history (EMS, parent, family, police, friend...)? What history was obtained from this source @ -[No] Did you review nursing and triage notes (agree or disagree)? Why? @ -[I reviewed and agree with nursing and triage notes] Were old charts reviewed (outside hosp., previous admission, EMS record, old EKG, old radiological studies, urgent care reports/EKG's, chcf records)? Report findings @ -[No old charts were reviewed] Differential Diagnosis (chest pain, altered mental status, abdominal pain women, abdominal pain men, vaginal bleeding, weakness, fever, dyspnea, syncope, headache, dizziness, GI bleed, back pain, seizure, CVA, palpatations, mental health, musculoskeletal)? @ -[not applicable] EKG interpreted by me (3pts min.). @ -yes and demonstrates sinus tachycardia with a rate of 107. OH interval 163. QRS 89. QTc of 373. No acute ST segment elevations or depressions X-rays interpreted by me (1pt min.). @ -[None done] CT interpreted by me (1pt min.). @ -[None done] U/S interpreted by me (1pt. min.). @ -[None done] What testing was considered but not performed or refused? (CT, X-rays, U/S, labs)? Why? @ -[None] What meds were considered but not given or refused? Why? @ -[None] Did you discuss the management of the patient with other professionals (professionals i.e. , PA, DELIVERER OUTSIDE, lab, RT, psych nurse, social media marketing manager, otc clerk, teacher, corporate compliance officer, registered nurse hh case manager)? Give summary @ -[No] Was smoking cessation discussed for >3mins.? @ -[No] Was critical care preformed (if so, how long)? @ -[No] Were there social determinants of health that impacted care today? How? (Homelessness, low income, unemployed, alcoholism, drug addiction, transportation, low edu. Level, literacy, decrease access to med. care, snf, rehab)? @ -[No] Was there de-escalation of care discussed even if they declined (Discuss DNR or withdrawal of care, Hospice)? DNR status @ -[No] What co-morbidities impacted this encounter? (DM, HTN, Smoking, COPD, CAD, Cancer, CVA, ARF, Chemo, Hep., AIDS, mental health diagnosis, sleep apnea, morbid obesity)? @ -[None] Was patient admitted / discharged? Hospital course, mention meds given and route, prescriptions, significant lab abnormalities, going to OR and other p ertinent info. @ -[hospital course] Undiagnosed new problem with uncertain prognosis? @ -[No] Drug Therapy requiring intensive monitoring for toxicity (Heparin, Nitro, Insulin, Cardizem)? @ -[No] Were any procedures done? @ -[No] Diagnosis/symptom? @ -[default] Acute, or Chronic, or Acute on Chronic? @ -[default] Uncomplicated (without systemic symptoms) or Complicated (systemic symptoms)? @ -[default] Side effects of treatment? @ -[No] Exacerbation, Progression, or Severe Exacerbation? @ -[No] Poses a threat to life or bodily function? How? (Chest pain, USA, CT, pneumonia, PE, COPD, DKA, ARF, appy, cholecystitis, CVA, Diverticulitis, Homicidal, Suicidal, threat to staff... and all critical care pts) @ -[No] - Lab Data Result diagrams: 08/13/24 02:51 08/13/24 02:51 Lab Results 08/13/24 08/13/24 08/13/24 Range/Units 02:39 02:51 02:51 WBC 16.3 H (3.8-10.6) k/uL RBC 5.03 (4.30-5.90) m/uL Hgb 15.4 (13.0-17.5) gm/dL Hct 47.0 (39.0-53.0) % MCV 93.5 (80.0-100.0) fL MCH 30.7 (25.0-35.0) pg MCHC 32.8 (31.0-37.0) g/dL RDW 14.5 (11.5-15.5) % Plt Count 348 (150-450) k/uL MPV 7.6 Neutrophils % 76 % Lymphocytes % 15 % Monocytes % 7 % Eosinophils % 1 % Basophils % 1 % Neutrophils # 12.4 H (1.3-7.7) k/uL Lymphocytes # 2.4 (1.0-4.8) k/uL Monocytes # 1.1 H (0-1.0) k/uL Eosinophils # 0.2 (0-0.7) k/uL Basophils # 0.1 (0-0.2) k/uL PT 11.5 (10.0-12.5) sec INR 1.0 (<1.2) Sodium (137-145) mmol/L Potassium (3.5-5.1) mmol/L Chloride (98-107) mmol/L Carbon Dioxide (22-30) mmol/L Anion Gap mmol/L BUN (9-20) mg/dL Creatinine (0.66-1.25) mg/dL Est GFR (CKD-EPI)AfAm (>60 ml/min/1.73 sqM) Est GFR (CKD-EPI)NonAf (>60 ml/min/1.73 sqM) Glucose (74-99) mg/dL Calcium (8.4-10.2) mg/dL Total Bilirubin (0.2-1.3) mg/dL AST (17-59) U/L ALT (4-49) U/L Alkaline Phosphatase (38-126) U/L Total Protein (6.3-8.2) g/dL Albumin (3.5-5.0) g/dL Urine Color Colorless Urine Appearance Clear (Clear) Urine pH 5.5 (5.0-8.0) Ur Specific [place] 1.003 (1.001-1.035) Urine Protein Negative (Negative) Urine Glucose (UA) Negative (Negative) Urine Ketones Negative (Negative) Urine Blood Negative (Negative) Urine Nitrite Negative (Negative) Urine Bilirubin Negative (Negative) Urine Urobilinogen <2.0 (<2.0) mg/dL Ur Leukocyte Esterase Negative (Negative) Urine Opiates Screen Not Detected (NotDetected) Ur Oxycodone Screen Not Detected (NotDetected) Urine Methadone Screen Not Detected (NotDetected) Ur Barbiturates Screen Detected H (NotDetected) U Tricyclic Antidepress Not Detected (NotDetected) Ur Phencyclidine Scrn Not Detected (NotDetected) Ur Amphetamines Screen Not Detected (NotDetected) U Methamphetamines Scrn Not Detected (NotDetected) U Benzodiazepines Scrn Detected H (NotDetected) Urine Cocaine Screen Not Detected (NotDetected) U Marijuana (THC) Screen Not Detected (NotDetected) Serum Alcohol mg/dL 08/13/24 Range/Units 02:51 WBC (3.8-10.6) k/uL RBC (4.30-5.90) m/uL Hgb (13.0-17.5) gm/dL Hct (39.0-53.0) % MCV (80.0-100.0) fL MCH (25.0-35.0) pg MCHC (31.0-37.0) g/dL RDW (11.5-15.5) % Plt Count (150-450) k/uL MPV Neutrophils % % Lymphocytes % % Monocytes % % Eosinophils % % Basophils % % Neutrophils # (1.3-7.7) k/uL Lymphocytes # (1.0-4.8) k/uL Monocytes # (0-1.0) k/uL Eosinophils # (0-0.7) k/uL Basophils # (0-0.2) k/uL PT (10.0-12.5) sec INR (<1.2) Sodium 136 L (137-145) mmol/L Potassium 4.7 (3.5-5.1) mmol/L Chloride 98 (98-107) mmol/L Carbon Dioxide 18 L (22-30) mmol/L Anion Gap 20 mmol/L BUN 8 L (9-20) mg/dL Creatinine 0.66 (0.66-1.25) mg/dL Est GFR (CKD-EPI)AfAm >90 (>60 ml/min/1.73 sqM) Est GFR (CKD-EPI)NonAf >90 (>60 ml/min/1.73 sqM) Glucose 106 H (74-99) mg/dL Calcium 8.6 (8.4-10.2) mg/dL Total Bilirubin 0.5 (0.2-1.3) mg/dL AST 95 H (17-59) U/L ALT 53 H (4-49) U/L Alkaline Phosphatase 92 (38-126) U/L Total Protein 7.2 (6.3-8.2) g/dL Albumin 4.6 (3.5-5.0) g/dL Urine Color Urine Appearance (Clear) Urine pH (5.0-8.0) Ur Specific [place] (1.001-1.035) Urine Protein (Negative) Urine Glucose (UA) (Negative) Urine Ketones (Negative) Urine Blood (Negative) Urine Nitrite (Negative) Urine Bilirubin (Negative) Urine Urobilinogen (<2.0) mg/dL Ur Leukocyte Esterase (Negative) Urine Opiates Screen (NotDetected) Ur Oxycodone Screen (NotDetected) Urine Methadone Screen (NotDetected) Ur Barbiturates Screen (NotDetected) U Tricyclic Antidepress (NotDetected) Ur Phencyclidine Scrn (NotDetected) Ur Amphetamines Screen (NotDetected) U Methamphetamines Scrn (NotDetected) U Benzodiazepines Scrn (NotDetected) Urine Cocaine Screen (NotDetected) U Marijuana (THC) Screen (NotDetected) Serum Alcohol 207 H* mg/dL Disposition Clinical Impression: Fall, Blunt head trauma, Facial cellulitis, Cellulitis of arm, right Disposition: ADMITTED IP TO THIS HOSP Condition: Stable Is patient prescribed a controlled substance at d/c from ED?: No Time of Disposition: 04:48 Decision to Admit Reason: Admit from EC Decision Date: 08/13/24 Decision Time: 04:48
[2024-08-13] MEDS ORDERED: NALOXONE 0.4 MG/ML 1 ML VIAL IV PRN (04:49)
[2024-08-13] MEDS ORDERED: ACETAMINOPHEN TAB 325 MG TAB PO PRN (04:49)
[2024-08-13] MEDS: AMPICILLIN-SULBACTAM 3 GM in SODIUM CHLORIDE 0.9% 100 ML IVPB STA (04:52)
[2024-08-13] MEDS ORDERED: LORazepam 2 MG/ML INJ IV PRN (05:14)
[2024-08-13] MEDS: VANCOMYCIN 2,000 MG in SODIUM CHLORIDE 0.9% 500 ML 500 ML IVPB ONE (05:20)
[2024-08-13 05:25] VITALS: RESP 15
[2024-08-13 05:41] VITALS: BP 143/66; TEMP 97.4
[2024-08-13] MEDS: LORazepam 2 MG/ML INJ IV PRN ×2 (06:37→08:10)
[2024-08-13] MEDS: FOLIC ACID 1 MG TAB PO SCH (08:10)
[2024-08-13] MEDS: MULTIVITAMINS, THERA 1 EACH TAB PO SCH (08:10)
[2024-08-13] MEDS: HEPARIN SODIUM,PORCINE 5,000 UNIT/ML 1 ML VIAL SQ SCH (08:11)
[2024-08-13] MEDS ORDERED: NICOTINE GUM (POLACRILEX) 2 MG GUM BUCCAL PRN (09:33)
--- NOTE | 2024-08-13 09:53 | P.HPIM ---
History of Present Illness H&P Date: 08/13/24 Patient is a 38-year-old male with history of DVT, polysubstance use, alcohol dependence presented after a fall. He claims that he has been in and out of the hospital in half-way for using methamphetamine. He was at [facility] yesterday for similar complaints. He claims that he was not treated with any antibiotics at that time. He started noticing facial swelling on the right side along with discharge after shaving his brown. Discharge is purulent in nature. He also had right forearm redness and discharge after getting an IV. He denies any IV drug use. He claims that he last used methamphetamine 2 weeks ago. He is an active smoker, unable to relay exactly how many cigarettes a day. He also drinks alcohol, unable to relay how much. He denies any other illicit drug use other than marijuana. In the ED, temperature was 98.1, pulse 118, respiratory rate 18, blood pressure 142/82, saturating at 97% on room air. WBC 16.3, sodium 136, potassium 4.7, bicarb 18, creatinine 0.66, AST 95, ALT 53, total bili 0.5, ALP 92, urinalysis negative, toxicology positive for barbiturates and benzodiazepines, serum alcohol level 207. Chest x-ray independently interpreted, shows no acute opacities., Head CT did not show any acute findings. EKG showed sinus tachycardia. Patient was given one-time dose of IV Unasyn in the ED, also started on IV vancomycin. Patient admitted for Pertinent positives and negatives as discussed in HPI, a complete review of systems was performed and all other systems are negative. Patient seen and examined at bedside. Vital signs reviewed General: nontoxic, no distress, appears at stated age, agitated Derm: warm, dry, right facial edema and erythema with dried purulence, right forearm small ulceration with edema and erythema, no discharge, induration present Head: atraumatic, normocephalic, symmetric Eyes: EOMI, no lid lag, anicteric sclera, pupils equal round reactive to light ENT: Nose and ears atraumatic Neck: No thyromegaly, supple Mouth: no lip lesion, mucus membranes moist Cardiovascular: S1S2 reg, tachycardic, no murmur, no edema Lungs: clear to auscultation bilateral, no rhonchi, no rales, no wheeze, no accessory muscle use Abdominal: soft, nontender to palpation, no guarding, no appreciable organomegaly Ext: no gross muscle atrophy, muscle strength muscle strength 5 out of 5 in all 4 extremities, no contractures Neuro: CN II-XII grossly intact Psych: Alert, oriented, agitated Assessment/Plan: Active: Alcohol intoxication Alcohol dependence Impending alcohol withdrawal -Continue telemetry monitoring -Thiamine 100 mg daily, folic acid 1 mg daily, multivitamin daily -IV Ativan per CIWA scores, monitor for sedation Sepsis secondary to facial and right arm cellulitis Leukocytosis -Patient was reportedly treated at [facility], did not complete his antibiotic therapy, prior history of MRSA -Currently on IV vancomycin, monitor for renal toxicity -ID also consulted -Ordered blood cultures and lactic acid -Started on lactated ringer 130 cc an hour -Consider face CT to further if no improvement, consider right forearm imaging if no improvement. Mild hypovolemic hyponatremia Sinus tachycardia Anion gap metabolic acidosis -Continue IV fluids -Repeat CMP tomorrow Transaminitis -Likely secondary to alcohol use. Repeat labs tomorrow History of DVT -Apparently patient has been taking Eliquis, restart at 5 mg twice daily The patient is admitted with an anticipated less than 2 midnight stay as obs ervation status for evaluation of alcohol intoxication and cellulitis. Surrogate decision-maker: Sibling CODE STATUS: Full code DVT prophylaxis: eliquis Anticipated discharge date: Pending clinical course Anticipated discharge place: Pending clinical course A total of 36 minutes was spent on the care of this complex patient more than 50% of the time was spent in counseling and care coordination. Past Medical History Past Medical History: Deep Vein Thrombosis (DVT), Thyroid Disorder Additional Past Medical History / Comment(s): ETOH abuse, past withdrawls with tremors/nausea/seizure, chronic low back pain, recent R knee/leg pain, DVT R leg, Catogory 5 blood disorder. Last Myocardial Infarction Date:: 07/2024 History of Any Multi-Drug Resistant Organisms: None Reported Date of last positivie culture/infection: august 2024 MDRO Source:: right side of face Past Surgical History: Cholecystectomy, Orthopedic Surgery Additional Past Surgical History / Comment(s): right knee tendon surgery Past Anesthesia/Blood Transfusion Reactions: Motion Sickness Additional Past Anesthesia/Blood Transfusion Reaction / Comment(s): Clausterphobia. Past Psychological History: Anxiety, Bipolar, Depression Smoking Status: Current every day smoker Past Alcohol Use History: Daily, Heavy Past Drug Use History: Cocaine, Marijuana, Methamphetamine - Past Family History Father History Unknown: Yes Family Medical History: CVA/TIA Additional Family Medical History / Comment(s): Unable to obtain family history secondary altered mentation Mother Family Medical History: Congestive Heart Failure (CHF) Medications and Allergies Home Medications Medication Instructions Recorded Confirmed Type Apixaban [Eliquis] 5 mg PO DIRECTED 08/13/24 08/13/24 History Doxycycline Hyclate 100 mg PO DIRECTED 08/13/24 08/13/24 History Folic Acid 1 mg PO DIRECTED 08/13/24 08/13/24 History Thiamine [Vitamin B-1] 100 mg PO DIRECTED 08/13/24 08/13/24 History Allergies Allergy/AdvReac Type Severity Reaction Status Date / Time No Known Allergies Allergy Verified 08/13/24 09:48 Physical Exam Vitals: Vital Signs Temp Pulse Pulse Resp BP BP Pulse Ox 08/13/24 05:38 97.4 F L 106 H 143/66 95 08/13/24 05:24 107 H 15 98/53 97 08/13/24 02:31 98.1 F 118 H 18 142/82 97 Intake and Output 08/12/24 08/13/24 08/13/24 22:59 06:59 14:59 Intake Total 240 Balance 240 Intake: Oral 240 Other: Weight 133.81 kg Results CBC & Chem 7: 08/13/24 02:51 08/13/24 02:51 Labs: Abnormal Lab Results - Last 24 Hours (Table) 08/13/24 08/13/24 08/13/24 Range/Units 02:39 02:51 02:51 WBC 16.3 H (3.8-10.6) k/uL Neutrophils # 12.4 H (1.3-7.7) k/uL Monocytes # 1.1 H (0-1.0) k/uL Sodium 136 L (137-145) mmol/L Carbon Dioxide 18 L (22-30) mmol/L BUN 8 L (9-20) mg/dL Glucose 106 H (74-99) mg/dL AST 95 H (17-59) U/L ALT 53 H (4-49) U/L Ur Barbiturates Screen Detected H (NotDetected) U Benzodiazepines Scrn Detected H (NotDetected) Serum Alcohol 207 H* mg/dL Thrombosis Risk Factor Assmnt - Choose All That Apply Any of the Below Risk Factors Present?: Yes Each Factor Represents 1 point: Obesity (BMI >25) Other Risk Factors: Yes Each Risk Factor Represents 3 Points: History of DVT/PE Thrombosis Risk Factor Assessment Total Risk Factor Score: 4 Thrombosis Risk Factor Assessment Level: Moderate Risk
[2024-08-13] MEDS: NICOTINE 21MG/24HR PATCH TRANSDERM SCH (10:09)
[2024-08-13] MEDS: LACTATED RINGERS 1,000 ML IV SCH (10:10)
[2024-08-13] MEDS: THIAMINE 100 MG/ML 2 ML VIAL IM STA (10:10)
[2024-08-13] MEDS ORDERED: LORazepam 1 MG/0.5 ML VIAL IV PRN ×3 (10:55→10:57)
[2024-08-13 12:06] VITALS: PULSE 130
--- NOTE | 2024-08-13 12:09 | P.DS ---
Providers Date of admission: 08/13/24 04:49 Expected date of discharge: 08/13/24 Attending physician: Brody Osorio MD Consults: 08/13/24 04:49 Consult Physician Urgent Consulting Provider: Vikas Self Consult Reason/Comments: facial cellulitis Do you want consulting provider notified?: Yes Primary care physician: Stated None Hospital Course: Patient left AMA after getting sober based on his presenting blood alcohol levels. Please see H&P from today for further details. Patient Condition at Discharge: Undetermined Plan - Discharge Summary Discharge Rx Participant: No New Discharge Prescriptions: No Action Thiamine [Vitamin B-1] 100 mg PO DIRECTED Folic Acid 1 mg PO DIRECTED Doxycycline Hyclate 100 mg PO DIRECTED Apixaban [Eliquis] 5 mg PO DIRECTED Discharge Medication List Apixaban [Eliquis] 5 mg PO DIRECTED 08/13/24 [History] Doxycycline Hyclate 100 mg PO DIRECTED 08/13/24 [History] Folic Acid 1 mg PO DIRECTED 08/13/24 [History] Thiamine [Vitamin B-1] 100 mg PO DIRECTED 08/13/24 [History] Follow up Appointment(s)/Referral(s): None,Stated [Primary Care Provider] - 1-2 days Discharge/Stand Alone Forms: NA Meetings in [place], AA Meetings [place], [facility] Outpatient Counseling
[2024-08-13] MEDS ORDERED: VANCOMYCIN 2,000 MG in SODIUM CHLORIDE 0.9% 500 ML 500 ML IVPB SCH (14:00)
[2024-08-13] MEDS ORDERED: APIXABAN 5 MG TAB PO SCH (21:00)
[2024-08-14] MEDS ORDERED: THIAMINE 100 MG TAB PO SCH (09:00)
[2024-08-14] MEDS ORDERED: VANCOMYCIN TROUGH DUE 1 EACH MISC MISCELLANE ONE (13:00)
== END 2024-08-13 12:37 | disposition left against medical advice (07) ==
LOC: EC 02:29 → 5NMEDONC 04:49
PROVIDERS: ADMIT Internal Medicine; ATTEND Internal Medicine
DX: L03.211 Cellulitis of face (principal); L03.113 Cellulitis of right upper limb; A41.9 Sepsis, unspecified organism; E86.1 Hypovolemia; E87.1 Hypo-osmolality and hyponatremia; E87.20 Acidosis, unspecified; F10.229 Alcohol dependence with intoxication, unspecified; F17.210 Nicotine dependence, cigarettes, uncomplicated; F31.9 Bipolar disorder, unspecified; F41.9 Anxiety disorder, unspecified; I25.2 Old myocardial infarction; S00.81XA Abrasion of other part of head, initial encounter; W19.XXXA Unspecified fall, initial encounter; Y90.7 Blood alcohol level of 200-239 mg/100 ml; Z53.29 Procedure and treatment not carried out because of patient's decision for other reasons; Z79.01 Long term (current) use of anticoagulants; Z86.14 Personal history of Methicillin resistant Staphylococcus aureus infection; Z86.711 Personal history of pulmonary embolism; Z86.718 Personal history of other venous thrombosis and embolism; G89.29 Other chronic pain; M54.50 Low back pain, unspecified; Z79.899 Other long term (current) drug therapy
CPT/HCPCS: 96376; 96366; 96367; 96372; 96365; 96375; 99285; 36415; 93005; 80053; 83605; 85025; 85610; 81003; 87040; 80306; 71045; 72125; 70450; G0378; G0480; S4990; J3370; J2060; J1644; J2405; J0295; 80320

== ENCOUNTER 2024-08-13 13:07 | Emergency (ER) | payer OTHER ==
[2024-08-13 13:18] VITALS: TEMP 98.4
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
[2024-08-13] MEDS: ACETAMINOPHEN TAB 500 MG TAB PO STA (13:55)
[2024-08-13] MEDS: DOXYCYCLINE 100 MG TABLET PO ONE (13:55)
[2024-08-13 14:00] VITALS: BP 155/87; PULSE 110; RESP 16
== END 2024-08-13 14:00 | disposition home or self-care (01) ==
LOC: EC 13:07
DX: S01.411A Laceration without foreign body of right cheek and temporomandibular area, initial encounter (principal); L03.211 Cellulitis of face; F17.200 Nicotine dependence, unspecified, uncomplicated; X58.XXXA Exposure to other specified factors, initial encounter
CPT/HCPCS: 99284

== ENCOUNTER 2024-08-14 03:34 | Observation (INO) | payer OTHER ==
[2024-08-14] MEDS ORDERED: VANCOMYCIN IV PER PHARMACY 1 EACH MISC MISCELLANE PRN (04:13)
[2024-08-14] MEDS: AMPICILLIN-SULBACTAM 3 GM in SODIUM CHLORIDE 0.9% 100 ML IVPB SCH (04:56)
[2024-08-14 05:00] LABS: Basophils # (A) 0.1 k/uL (0-0.2); Basophils % (A) 1 %; Eosinophils # (A) 0.2 k/uL (0-0.7); Eosinophils % (A) 2 %; HCT 45.8 % (39.0-53.0); Lymphocytes # (A) 1.7 k/uL (1.0-4.8); Lymphocytes % (A) 15 %; MCH 30.6 pg (25.0-35.0); MCHC 32.8 g/dL (31.0-37.0); MCV 93.3 fL (80.0-100.0); Mean Platelet Volume 7.4; Monocytes # (A) 0.5 k/uL (0-1.0); Monocytes % (A) 4 %; Neutrophils # (A) 9.1 k/uL (1.3-7.7); Neutrophils % (A) 77 %; Platelet Count 361 k/uL (150-450); RBC 4.91 m/uL (4.30-5.90); RDW 14.7 % (11.5-15.5); WBC 11.8 k/uL (3.8-10.6)
[2024-08-14 05:11] LABS: ALT 53 U/L (4-49); AST 58 U/L (17-59); African American GFR (CKD) >90 (>60 ml/min/1.73 sqM); Albumin 4.5 g/dL (3.5-5.0); Alkaline Phosphatase 91 U/L (38-126); Anion Gap 16 mmol/L; Blood Urea Nitrogen 8 mg/dL (9-20); Calcium 8.8 mg/dL (8.4-10.2); Carbon Dioxide 20 mmol/L (22-30); Chloride 105 mmol/L (98-107); Glucose 118 mg/dL (74-99); Non-African American GFR(CKD) >90 (>60 ml/min/1.73 sqM); Potassium 4.3 mmol/L (3.5-5.1); Sodium 141 mmol/L (137-145); Total Bilirubin 0.4 mg/dL (0.2-1.3); Total Protein 7.1 g/dL (6.3-8.2)
[2024-08-14 05:38] LABS: Alcohol 146 mg/dL
--- NOTE | 2024-08-14 05:41 | ED ---
General Adult HPI - General Chief complaint: Skin/Abscess/Foreign Body Stated complaint: Leg Pain Time Seen by Provider: 08/14/24 03:48 Source: patient, RN notes reviewed Mode of arrival: ambulatory - History of Present Illness Initial comments: 38-year-old male with past medical history of alcoholism, polysubstance abuse who presents emergency department after he left AGAINST MEDICAL ADVICE yesterday. Patient had been admitted for facial cellulitis. He does admit that he has been in and out of [facility] and has been positive for MRSA before in the past. Patient states that he had to go home to take care of his children. States that he has return for IV antibiotics as his facial cellulitis has been getting worse. He is not on any oral antibiotics at home. Patient is on anticoagulation. Also has an area of cellulitis noted to the right posterior forearm. No report of any fevers today. Patient does admit to drinking. No difficulty swallowing or breathing. No other alleviating, precipitating or modifying factors - Related Data Home Medications Medication Instructions Recorded Confirmed Apixaban [Eliquis] 5 mg PO DIRECTED 08/13/24 08/13/24 Doxycycline Hyclate 100 mg PO DIRECTED 08/13/24 08/13/24 Folic Acid 1 mg PO DIRECTED 08/13/24 08/13/24 Thiamine [Vitamin B-1] 100 mg PO DIRECTED 08/13/24 08/13/24 Previous Rx's Medication Instructions Recorded Ibuprofen [Motrin] 800 mg PO Q6HR #30 tab 08/13/24 Allergies Allergy/AdvReac Type Severity Reaction Status Date / Time No Known Allergies Allergy Verified 08/14/24 03:39 Review of Systems ROS Statement: Those systems with pertinent positive or pertinent negative responses have been documented in the HPI. ROS Other: All systems not noted in ROS Statement are negative. Past Medical History Past Medical History: Deep Vein Thrombosis (DVT), Thyroid Disorder Additional Past Medical History / Comment(s): ETOH abuse, past withdrawls with tremors/nausea/seizure, chronic low back pain, recent R knee/leg pain, DVT R leg, Catogory 5 blood disorder. Last Myocardial Infarction Date:: 07/2024 History of Any Multi-Drug Resistant Organisms: MRSA Date of last positivie culture/infection: august 2024 MDRO Source:: right side of face Past Surgical History: Cholecystectomy, Orthopedic Surgery Additional Past Surgical History / Comment(s): right knee tendon surgery Past Anesthesia/Blood Transfusion Reactions: Motion Sickness Additional Past Anesthesia/Blood Transfusion Reaction / Comment(s): Clausterphobia. Past Psychological History: Anxiety, Bipolar, Depression Smoking Status: Current every day smoker Past Alcohol Use History: Daily, Heavy Past Drug Use History: Cocaine, Marijuana, Methamphetamine - Past Family History Father History Unknown: Yes Family Medical History: CVA/TIA Additional Family Medical History / Comment(s): Unable to obtain family history secondary altered mentation Mother Family Medical History: Congestive Heart Failure (CHF) General Exam Limitations: altered mental status General appearance: appears intoxicated Head exam: Present: other (Cheek is indurated. There is a 3 x 2 cm honey colored crust over the inferior aspect. There is a 2 cm abrasion just lateral to the nose. No fluctuance) Eye exam: Present: normal appearance ENT exam: Present: normal exam, mucous membranes moist Cardiovascular Exam: Present: normal rhythm, tachycardia, normal heart sounds. Absent: systolic murmur, diastolic murmur, rubs, gallop, clicks GI/Abdominal exam: Present: soft, normal bowel sounds. Absent: distended, tenderness, guarding, rebound, rigid Extremities exam: Present: other (Abscess noted to the posterior right arm measuring 1 x 1 cm with surrounding cellulitis) Neurological exam: Present: altered Psychiatric exam: Present: normal affect, normal mood Skin exam: Present: warm, dry, intact, normal color. Absent: rash Course Vital Signs 08/14/24 08/14/24 08/14/24 03:36 03:51 04:30 Temperature 97.8 F Pulse Rate 131 H 115 H Respiratory 18 Rate Blood Pressure 145/80 120/70 126/83 O2 Sat by Pulse 97 96 96 Oximetry Medical Decision Making - Medical Decision Making Was pt. sent in by a medical professional or institution (, PA, DIRECTOR VIDEO, urgent care, hospital, or penitentiary...) When possible be specific @ -No Did you speak to anyone other than the patient for history (EMS, parent, family, police, friend...)? What history was obtained from this source @ -No Did you review nursing and triage notes (agree or disagree)? Why? @ -I reviewed and agree with nursing and triage notes Were old charts reviewed (outside hosp., previous admission, EMS record, old EKG, old radiological studies, urgent care reports/EKG's, penitentiary records)? Report findings @ -I reviewed the report from yesterday Differential Diagnosis (chest pain, altered mental status, abdominal pain women, abdominal pain men, vaginal bleeding, weakness, fever, dyspnea, syncope, headache, dizziness, GI bleed, back pain, seizure, CVA, palpatations, mental health, musculoskeletal)? @ -Cellulitis, abscess, MRSA EKG interpreted by me (3pts min.). @ -Not done X-rays interpreted by me (1pt min.). @ -None done CT interpreted by me (1pt min.). @ -None done U/S interpreted by me (1pt. min.). @ -None done What testing was considered but not performed or refused? (CT, X-rays, U/S, labs)? Why? @ -None What meds were considered but not given or refused? Why? @ -None Did you discuss the management of the patient with other professionals (professionals i.e. , PA, DIRECTOR VIDEO, lab, RT, psych nurse, manager social services, animal biologist, teacher, electronic warfare officer, watch caser)? Give summary @ -Dr. Escalante for the admission Was smoking cessation discussed for >3mins.? @ -No Was critical care preformed (if so, how long)? @ -No Were there social determinants of health that impacted care today? How? (Homelessness, low income, unemployed, alcoholism, drug addiction, transportation, low edu. Level, literacy, decrease access to med. care, [facility], rehab)? @ -No Was there de-escalation of care discussed even if they declined (Discuss DNR or withdrawal of care, Hospice)? DNR status @ -No What co-morbidities impacted this encounter? (DM, HTN, Smoking, COPD, CAD, Cancer, CVA, ARF, Chemo, Hep., AIDS, mental health diagnosis, sleep apnea, morbid obesity)? @ -Pulmonary embolisms on anticoagulation Was patient admitted / discharged? Hospital course, mention meds given and route, prescriptions, significant lab abnormalities, going to OR and other pertinent info. @ -Upon arrival patient seen and evaluated in bed 11. He does appear intoxicated. Is agreeable to IV antibiotics and states that he will not leave AMA again. IV was established and laboratory studies are conducted. Patient was given Unasyn and Vanco. I will admit the patient for infectious disease consult. Spoke with Dr. Escalante for the admission Undiagnosed new problem with uncertain prognosis? @ -No Drug Therapy requiring intensive monitoring for toxicity (Heparin, Nitro, Insulin, Cardizem)? @ -No Were any procedures done? @ -No Diagnosis/symptom? @ -Acute right cheek cellulitis, acute right arm cellulitis, history of MRSA, alcohol intoxication Acute, or Chronic, or Acute on Chronic? @ -Acute on chronic Uncomplicated (without systemic symptoms) or Complicated (systemic symptoms)? @ -Complicated Side effects of treatment? @ -No Exacerbation, Progression, or Severe Exacerbation? @ -No Poses a threat to life or bodily function? How? (Chest pain, [place], [place], pneumonia, PE, COPD, DKA, ARF, appy, cholecystitis, CVA, Diverticulitis, Homicidal, Suicidal, threat to staff... and all critical care pts) @ -No - Lab Data Result diagrams: 08/14/24 04:51 08/14/24 04:51 Lab Results 08/14/24 08/14/24 08/14/24 Range/Units 04:51 04:51 04:51 WBC 11.8 H (3.8-10.6) k/uL RBC 4.91 (4.30-5.90) m/uL Hgb 15.0 (13.0-17.5) gm/dL Hct 45.8 (39.0-53.0) % MCV 93.3 (80.0-100.0) fL MCH 30.6 (25.0-35.0) pg MCHC 32.8 (31.0-37.0) g/dL RDW 14.7 (11.5-15.5) % Plt Count 361 (150-450) k/uL MPV 7.4 Neutrophils % 77 % Lymphocytes % 15 % Monocytes % 4 % Eosinophils % 2 % Basophils % 1 % Neutrophils # 9.1 H (1.3-7.7) k/uL Lymphocytes # 1.7 (1.0-4.8) k/uL Monocytes # 0.5 (0-1.0) k/uL Eosinophils # 0.2 (0-0.7) k/uL Basophils # 0.1 (0-0.2) k/uL Sodium 141 (137-145) mmol/L Potassium 4.3 (3.5-5.1) mmol/L Chloride 105 (98-107) mmol/L Carbon Dioxide 20 L (22-30) mmol/L Anion Gap 16 mmol/L BUN 8 L (9-20) mg/dL Creatinine 0.86 (0.66-1.25) mg/dL Est GFR (CKD-EPI)AfAm >90 (>60 ml/min/1.73 sqM) Est GFR (CKD-EPI)NonAf >90 (>60 ml/min/1.73 sqM) Glucose 118 H (74-99) mg/dL Plasma Lactic Acid Lafie 2.9 H* (0.7-2.0) mmol/L Calcium 8.8 (8.4-10.2) mg/dL Total Bilirubin 0.4 (0.2-1.3) mg/dL AST 58 (17-59) U/L ALT 53 H (4-49) U/L Alkaline Phosphatase 91 (38-126) U/L Total Protein 7.1 (6.3-8.2) g/dL Albumin 4.5 (3.5-5.0) g/dL Serum Alcohol 146 mg/dL Disposition Clinical Impression: Facial cellulitis, Cellulitis of arm, right Disposition: ADMITTED IP TO THIS [facility] Condition: Stable Is patient prescribed a controlled substance at d/c from ED?: No Time of Disposition: 05:41 Decision to Admit Reason: Admit from EC Decision Date: 08/14/24 Decision Time: 05:41
[2024-08-14] MEDS ORDERED: NALOXONE 0.4 MG/ML 1 ML VIAL IV PRN (05:43)
[2024-08-14] MEDS ORDERED: LORazepam 2 MG/ML INJ IV PRN ×2 (06:29)
[2024-08-14] MEDS: VANCOMYCIN 2,000 MG in SODIUM CHLORIDE 0.9% 500 ML 500 ML IVPB ONE (06:32)
[2024-08-14] MEDS: SODIUM CHLORIDE 0.9% 1,000 ML IV SCH (06:37)
[2024-08-14] MEDS: THIAMINE 100 MG TAB PO SCH (08:38)
[2024-08-14] MEDS: APIXABAN 5 MG TAB PO SCH (08:38)
[2024-08-14] MEDS: LORazepam 2 MG/ML INJ IV PRN (08:40)
[2024-08-14] MEDS: LACTATED RINGERS 1,000 ML IV SCH (08:41)
[2024-08-14] MEDS: ONDANSETRON 4 MG/2 ML VIAL IVP PRN (10:46)
[2024-08-14] MEDS: ACETAMINOPHEN TAB 325 MG TAB PO PRN ×2 (10:47→14:23)
[2024-08-14] MEDS ORDERED: LORazepam 1 MG/0.5 ML VIAL IV PRN ×2 (14:07→14:10)
[2024-08-14] MEDS: LORazepam 1 MG/0.5 ML VIAL IV PRN (14:23)
[2024-08-14] MEDS: VANCOMYCIN 2,000 MG in SODIUM CHLORIDE 0.9% 500 ML 500 ML IVPB SCH (14:44)
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
[2024-08-14] MEDS: MELATONIN 5 MG TABLET PO PRN (21:38)
[2024-08-15 07:38] VITALS: RESP 16
[2024-08-15 09:44] LABS: Basophils # (A) 0.07 X 10*3/uL (0.00-0.10); Basophils % (A) 0.9 %; Eosinophils # (A) 0.26 X 10*3/uL (0.04-0.35); Eosinophils % (A) 3.4 %; HGB 12.4 g/dL (13.0-17.0); Lymphocytes # (A) 2.13 X 10*3/uL (0.90-5.00); MCH 30.8 pg (27.0-32.0); MCHC 32.6 g/dL (32.0-37.0); MCV 94.3 FL (80.0-97.0); Mean Platelet Volume 11.1 FL (9.5-12.2); Monocytes # (A) 0.67 X 10*3/uL (0.20-1.00); Monocytes % (A) 8.8 %; NRBC Per 100 WBC 0 X 10*3/uL (0.00-0.01); Neutrophils # (A) 4.44 X 10*3/uL (1.80-7.70); Neutrophils % (A) 58.5 %; Platelet Count 266 X 10*3/uL (140-440); RBC 4.03 X 10*6/uL (4.40-5.60); RDW 14.6 % (11.5-14.5)
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
[2024-08-15 13:28] LABS: Blood Urea Nitrogen 6.3 mg/dL (9.0-27.0); Carbon Dioxide 20.6 mmol/L (21.6-31.8); Chloride 108 mmol/L (96-109); Glucose 114 mg/dL (70-110); Potassium 4.1 mmol/L (3.5-5.5); Sodium 141 mmol/L (135-145)
[2024-08-15 13:29] LABS: Calcium 8.2 mg/dL (8.7-10.3)
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
[2024-08-15] MEDS: VANCOMYCIN TROUGH DUE 1 EACH MISC MISCELLANE ONE (14:29)
[2024-08-15 14:34] VITALS: BP 133/80; PULSE 86; TEMP 98.1
--- NOTE | 2024-08-15 18:43 | P.DS ---
Providers Date of admission: 08/14/24 05:44 Attending physician: Eli Escalante MD Consults: 08/14/24 05:43 Consult Physician Urgent Consulting Provider: Vikas Self Consult Reason/Comments: facial cellulitis Do you want consulting provider notified?: Yes Primary care physician: Stated None Hospital Course: Hospital Course: Patient is a 38-year-old male with history of CAD, DVT (on Eliquis), hypothy roidism, anxiety, bipolar disorder, depression, MRSA (bacteremia) polysubstance use, alcohol dependence here for evaluation of facial cellulitis. Labs and imaging showed WBC 11.8, hemoglobin 15, platelet count 361,000, bicarb 20, BUN 8, creatinine 0.86, lactic acid 2.9, ALT 53, serum alcohol 146. Vitals on admission showed temperature 97.9 F, pulse rate 115, blood pressure 132/80, O2 saturation 98% on room air Patient was admitted for evaluation of facial cellulitis. Ordered IV antibiotics, blood cultures, IV fluids, Ativan per CIWA. ID consulted. However, patient left AMA today. Final Diagnosis: #. Superficial facial cellulitis #. Sepsis secondary to above, resolved #. Alcohol dependence #. CAD #. History of DVT #. Hypothyroidism #. Anxiety #. Bipolar disorder #. Depression Physical examination: Vital signs reviewed General: non toxic, no distress Derm: no unusual rashes/lesions, warm Head: atraumatic, normocephalic, symmetric, improving right facial wound side of the mouth with surrounding erythema and fluctuance Eyes: EOMI, anicteric sclera, pupils equal round reactive to light ENT: Nose and ears atraumatic Neck: No cervical lymphadenopathy, trachea midline, supple Mouth: no lip lesion, mucus membranes moist Cardiovascular: S1S2 reg, no murmur Lungs: CTA bilateral, no rhonchi, no rales, no accessory muscle use Abdominal: soft, nondistended, nontender to palpation, no guarding Ext: muscle strength 5 out of 5 in all 4 extremities grossly, no gross muscle atrophy, no contractures, positive dorsalis pedis pulse bilateral, no edema, right wound on forearm with scabbed wound Neuro: CN II-XI grossly intact, no gross focal neuro deficits Psych: Alert, oriented, appropriate affect and mood I saw and evaluated the patient during the zaldivar and critical portions of this encounter, and discussed the case in detail with the resident author of this note, I agree with the Assessment and Plan, and my changes, if any, are highlighted in blue. Patient Condition at Discharge: Undetermined Plan - Discharge Summary Discharge Rx Participant: No New Discharge Prescriptions: No Action Thiamine [Vitamin B-1] 100 mg PO DIRECTED Folic Acid 1 mg PO DIRECTED Doxycycline Hyclate 100 mg PO DIRECTED Apixaban [Eliquis] 5 mg PO DIRECTED Ibuprofen [Motrin] 800 mg PO DIRECTED Discharge Medication List Apixaban [Eliquis] 5 mg PO DIRECTED 08/13/24 [History] Doxycycline Hyclate 100 mg PO DIRECTED 08/13/24 [History] Folic Acid 1 mg PO DIRECTED 08/13/24 [History] Thiamine [Vitamin B-1] 100 mg PO DIRECTED 08/13/24 [History] Ibuprofen [Motrin] 800 mg PO DIRECTED 08/14/24 [History] Follow up Appointment(s)/Referral(s): None,Stated [Primary Care Provider] - 1-2 days Patient Instructions/Handouts: Alcohol Dependence (DC) Discharge/Stand Alone Forms: AA Meetings Azra Delacruz Discharge Disposition: LEFT AGAINST MEDICAL ADVICE
== END 2024-08-15 18:26 | disposition left against medical advice (07) ==
LOC: EC 03:34 → 6NMEDSUR 05:44
PROVIDERS: ADMIT Internal Medicine; ATTEND Internal Medicine
DX: L03.211 Cellulitis of face (principal); A41.9 Sepsis, unspecified organism; F31.9 Bipolar disorder, unspecified; F41.9 Anxiety disorder, unspecified; I25.10 Atherosclerotic heart disease of native coronary artery without angina pectoris; E03.9 Hypothyroidism, unspecified; F10.20 Alcohol dependence, uncomplicated; F17.200 Nicotine dependence, unspecified, uncomplicated; I25.2 Old myocardial infarction; Z86.14 Personal history of Methicillin resistant Staphylococcus aureus infection; Z86.718 Personal history of other venous thrombosis and embolism; Z79.01 Long term (current) use of anticoagulants; Z53.29 Procedure and treatment not carried out because of patient's decision for other reasons
CPT/HCPCS: 96376 ×3; 96361 ×2; 96366 ×3; 96365; 96367; 96375; 99285; 36415; 80053; 80048; 83605; 85025 ×2; 80202; 87040; G0378 ×2; G0480; J3370 ×2; J2060 ×2; J2405; J0295 ×2; 80320

== ENCOUNTER 2024-08-16 05:42 | Emergency (ER) | payer OTHER ==
[2024-08-16 05:55] VITALS: BP 141/96; PULSE 100; RESP 18; TEMP 98.1
--- NOTE | 2024-08-16 06:16 | ED ---
General Adult HPI - General Chief complaint: Chest Pain Stated complaint: Chest Pain Time Seen by Provider: 08/16/24 06:00 Source: patient, EMS, RN notes reviewed Mode of arrival: EMS Limitations: no limitations - History of Present Illness Initial comments: This is a 38-year-old male presents emergency department with chief complaint of pain. Patient states that he is withdrawing from multiple drugs. Patient has been admitted several times in the last week and leaves AMA because he states he has to go use drugs. Patient is currently on antibiotics for cellulitis. Patient denies any fevers or chills no change or worsening symptoms he states his face is actually improving states he has rib pain abdominal pain leg pain back pain and is requesting narcotic pain meds. - Related Data Home Medications Medication Instructions Recorded Confirmed Apixaban [Eliquis] 5 mg PO DIRECTED 08/13/24 08/14/24 Doxycycline Hyclate 100 mg PO DIRECTED 08/13/24 08/14/24 Folic Acid 1 mg PO DIRECTED 08/13/24 08/14/24 Thiamine [Vitamin B-1] 100 mg PO DIRECTED 08/13/24 08/14/24 Ibuprofen [Motrin] 800 mg PO DIRECTED 08/14/24 08/14/24 Allergies Allergy/AdvReac Type Severity Reaction Status Date / Time No Known Allergies Allergy Verified 08/16/24 05:55 Review of Systems ROS Statement: Those systems with pertinent positive or pertinent negative responses have been documented in the HPI. ROS Other: All systems not noted in ROS Statement are negative. Past Medical History Past Medical History: Deep Vein Thrombosis (DVT), Thyroid Disorder Additional Past Medical History / Comment(s): ETOH abuse, past withdrawls with tremors/nausea/seizure, chronic low back pain, recent R knee/leg pain, DVT R leg, Catogory 5 blood disorder. Last Myocardial Infarction Date:: 07/2024 History of Any Multi-Drug Resistant Organisms: MRSA Date of last positivie culture/infection: august 2024 MDRO Source:: right side of face Past Surgical History: Cholecystectomy, Orthopedic Surgery Additional Past Surgical History / Comment(s): right knee tendon surgery Past Anesthesia/Blood Transfusion Reactions: Motion Sickness Additional Past Anesthesia/Blood Transfusion Reaction / Comment(s): Clausterphobia. Past Psychological History: Anxiety, Bipolar, Depression Smoking Status: Current every day smoker Past Alcohol Use History: Daily, Heavy Past Drug Use History: Cocaine, Marijuana, Methamphetamine - Past Family History Father History Unknown: Yes Family Medical History: CVA/TIA Additional Family Medical History / Comment(s): Unable to obtain family history secondary altered mentation Mother Family Medical History: Congestive Heart Failure (CHF) General Exam Limitations: no limitations General appearance: alert, in no apparent distress Head exam: Present: atraumatic, normocephalic, normal inspection Eye exam: Present: normal appearance, PERRL, EOMI. Absent: scleral icterus, conjunctival injection, periorbital swelling ENT exam: Present: normal oropharynx, mucous membranes moist, TM's normal bilaterally, normal external ear exam, other (Mild edema with erythema facial swelling noted) Neck exam: Present: normal inspection, full ROM. Absent: tenderness, meningismus, lymphadenopathy Respiratory exam: Present: normal lung sounds bilaterally. Absent: respiratory distress, wheezes, rales, rhonchi, stridor Cardiovascular Exam: Present: regular rate, normal rhythm, normal heart sounds. Absent: systolic murmur, diastolic murmur, rubs, gallop, clicks Course Vital Signs 08/16/24 05:46 Temperature 98.1 F Pulse Rate 100 Respiratory 18 Rate Blood Pressure 141/96 O2 Sat by Pulse 100 Oximetry EKG Findings - EKG Comments: EKG Findings:: EKG performed at 5: 50 sinus tachycardia rate of 101 MT 160 QRS 86 QT/QTc 342/382 - EKG Results: EKG: interpreted by SIMONE Medical Decision Making - Medical Decision Making Was pt. sent in by a medical professional or institution (, PA, OPERATIONS RESEARCH SCIENTIST, urgent care, hospital, or penitentiary...) When possible be specific @ -No Did you speak to anyone other than the patient for history (EMS, parent, family, police, friend...)? What history was obtained from this source @ -No Did you review nursing and triage notes (agree or disagree)? Why? @ -I reviewed and agree with nursing and triage notes Were old charts reviewed (outside hosp., previous admission, EMS record, old EKG, old radiological studies, urgent care reports/EKG's, penitentiary records)? Report findings @ -No old charts were reviewed Differential Diagnosis (chest pain, altered mental status, abdominal pain women, abdominal pain men, vaginal bleeding, weakness, fever, dyspnea, syncope, headache, dizziness, GI bleed, back pain, seizure, CVA, palpatations, mental health, musculoskeletal)? @ -Drug withdrawal, atypical chest pain, chronic pain, facial cellulitis, this list is not all inclusive EKG interpreted by me (3pts min.). @ -As above X-rays interpreted by me (1pt min.). @ -None done CT interpreted by me (1pt min.). @ -None done U/S interpreted by me (1pt. min.). @ -None done What testing was considered but not performed or refused? (CT, X-rays, U/S, labs)? Why? @ -Recommended labs, x-ray patient declined stating that he does not want to be poked anymore and has been in the hospital and leaving AMA because of multiple blood draws. What meds were considered but not given or refused? Why? @ -None Did you discuss the management of the patient with other professionals (professionals i.e. , PA, OPERATIONS RESEARCH SCIENTIST, lab, RT, psych nurse, outreach and education social worker, ssrs developer, t eacher, collections officer, window caser)? Give summary @ -No Was smoking cessation discussed for >3mins.? @ -No Was critical care preformed (if so, how long)? @ -No Were there social determinants of health that impacted care today? How? (Homelessness, low income, unemployed, alcoholism, drug addiction, transportation, low edu. Level, literacy, decrease access to med. care, [place] [facility], rehab)? @ -No Was there de-escalation of care discussed even if they declined (Discuss DNR or withdrawal of care, Hospice)? DNR status @ -No What co-morbidities impacted this encounter? (DM, HTN, Smoking, COPD, CAD, Cance r, CVA, ARF, Chemo, Hep., AIDS, mental health diagnosis, sleep apnea, morbid obesity)? @ -None Was patient admitted / discharged? Hospital course, mention meds given and route, prescriptions, significant lab abnormalities, going to OR and other pertinent info. @ -Discharge patient refused all testing by EKG. Patient requesting narcotic pain meds for withdrawal symptoms patient given Toradol will be discharged in stable condition return for as discussed. Undiagnosed new problem with uncertain prognosis? @ -No Drug Therapy requiring intensive monitoring for toxicity (Heparin, Nitro, Insulin, Cardizem)? @ -No Were any procedures done? @ -No Diagnosis/symptom? @ -Drug abuse drug withdrawal, chronic pain Acute, or Chronic, or Acute on Chronic? @ -Acute, acute, chronic Uncomplicated (without systemic symptoms) or Complicated (systemic symptoms)? @ -uncomplicated Side effects of treatment? @ -No Exacerbation, Progression, or Severe Exacerbation? @ -No Poses a threat to life or bodily function? How? (Chest pain, [place], [place], pneumonia, PE, COPD, DKA, ARF, appy, cholecystitis, CVA, Diverticulitis, Homicidal, Suicidal, threat to staff... and all critical care pts) @ -No Disposition Clinical Impression: Chronic pain, Drug withdrawal Disposition: HOME SELF-CARE Condition: Stable Additional Instructions: Please return to the Emergency Department if symptoms worsen or any other concerns. Is patient prescribed a controlled substance at d/c from ED?: No Referrals: None,Stated [Primary Care Provider] - 1-2 days Time of Disposition: 06:16
[2024-08-16] MEDS: KETOROLAC 15 MG/ML 1 ML VIAL IM STA (06:24)
== END 2024-08-16 06:32 | disposition home or self-care (01) ==
LOC: EC 05:42
DX: G89.29 Other chronic pain (principal); F19.239 Other psychoactive substance dependence with withdrawal, unspecified; F17.200 Nicotine dependence, unspecified, uncomplicated
CPT/HCPCS: 93005; 99285; 96372; J1885

== ENCOUNTER 2024-08-17 20:25 | Emergency (ER) | payer OTHER ==
[2024-08-17] MEDS: SODIUM CHLORIDE 0.9% 1,000 ML IV STA (20:41)
[2024-08-17 20:58] LABS: Basophils # (A) 0.1 k/uL (0-0.2); Basophils % (A) 1 %; Eosinophils # (A) 0.2 k/uL (0-0.7); Eosinophils % (A) 2 %; HCT 47.9 % (39.0-53.0); HGB 15.6 gm/dL (13.0-17.5); Lymphocytes # (A) 2.6 k/uL (1.0-4.8); Lymphocytes % (A) 29 %; MCH 30.2 pg (25.0-35.0); MCHC 32.6 g/dL (31.0-37.0); MCV 92.7 fL (80.0-100.0); Mean Platelet Volume 6.9; Monocytes # (A) 0.5 k/uL (0-1.0); Monocytes % (A) 5 %; Neutrophils # (A) 5.4 k/uL (1.3-7.7); Neutrophils % (A) 60 %; Platelet Count 365 k/uL (150-450); RBC 5.17 m/uL (4.30-5.90); RDW 14.4 % (11.5-15.5)
--- NOTE | 2024-08-17 21:13 | ED ---
General Adult HPI - General Chief complaint: Chest Pain Stated complaint: Chest Pain, ETOH Time Seen by Provider: 08/17/24 20:26 Source: patient, RN notes reviewed, old records reviewed Mode of arrival: EMS - History of Present Illness Initial comments: 38-year-old presents for evaluation of alcohol intoxication. Patient did report some chest discomfort but history is limited due to intoxication. No vomiting. No prior history of CAD. Patient currently being treated for facial cellulitis. Denies fever. - Related Data Home Medications Medication Instructions Recorded Confirmed Apixaban [Eliquis] 5 mg PO DIRECTED 08/13/24 08/17/24 Doxycycline Hyclate 100 mg PO DIRECTED 08/13/24 08/17/24 Folic Acid 1 mg PO DIRECTED 08/13/24 08/17/24 Thiamine [Vitamin B-1] 100 mg PO DIRECTED 08/13/24 08/17/24 Ibuprofen [Motrin] 800 mg PO DIRECTED 08/14/24 08/17/24 Allergies Allergy/AdvReac Type Severity Reaction Status Date / Time No Known Allergies Allergy Verified 08/17/24 20:48 Review of Systems ROS Statement: Those systems with pertinent positive or pertinent negative responses have been documented in the HPI. ROS Other: All systems not noted in ROS Statement are negative. Past Medical History Past Medical History: Deep Vein Thrombosis (DVT), Thyroid Disorder Additional Past Medical History / Comment(s): ETOH abuse, past withdrawls with tremors/nausea/seizure, chronic low back pain, recent R knee/leg pain, DVT R leg, Catogory 5 blood disorder. Last Myocardial Infarction Date:: 07/2024 History of Any Multi-Drug Resistant Organisms: MRSA Date of last positivie culture/infection: august 2024 MDRO Source:: right side of face Past Surgical History: Cholecystectomy, Orthopedic Surgery Additional Past Surgical History / Comment(s): right knee tendon surgery Past Anesthesia/Blood Transfusion Reactions: Motion Sickness Additional Past Anesthesia/Blood Transfusion Reaction / Comment(s): Clausterphobia. Past Psychological History: Anxiety, Bipolar, Depression Smoking Status: Current every day smoker Past Alcohol Use History: Daily, Heavy Past Drug Use History: Cocaine, Marijuana, Methamphetamine - Past Family History Father History Unknown: Yes Family Medical History: CVA/TIA Additional Family Medical History / Comment(s): Unable to obtain family history secondary altered mentation Mother Family Medical History: Congestive Heart Failure (CHF) General Exam General appearance: alert, in no apparent distress Head exam: Present: atraumatic, normocephalic Neck exam: Present: normal inspection. Absent: tenderness, meningismus Respiratory exam: Present: normal lung sounds bilaterally. Absent: respiratory distress, wheezes Cardiovascular Exam: Present: regular rate, normal rhythm GI/Abdominal exam: Present: soft. Absent: distended, tenderness Neurological exam: Present: alert, oriented X3, CN II-XII intact. Absent: motor sensory deficit Skin exam: Present: warm, dry Course Vital Signs 08/17/24 08/17/24 20:29 21:40 Temperature 97.6 F Pulse Rate 109 H 95 Respiratory 20 18 Rate Blood Pressure 142/94 122/77 O2 Sat by Pulse 97 92 L Oximetry Medical Decision Making - Medical Decision Making Was pt. sent in by a medical professional or institution (JOANA Duff, MEDICAL ASSOCIATE, urgent care, hospital, or retirement...) When possible be specific @ -No Did you speak to anyone other than the patient for history (EMS, parent, family, police, friend...)? What history was obtained from this source @ -No Did you review nursing and triage notes (agree or disagree)? Why? @ -I reviewed and agree with nursing and triage notes Were old charts reviewed (outside hosp., previous admission, EMS record, old EKG, old radiological studies, urgent care reports/EKG's, retirement records)? Report findings @ -No old charts were reviewed Differential Chest Pain: Stable Angina, Unstable Angina, STEMI, NSTEMI Aortic Dissection, Pneumothorax, Musculoskeletal, Esophageal Spasm GERD, Cholecystitis, Pancreatitis, Zoster, this is not meant to be an all-inclusive list. EKG interpreted by me (3pts min.). @ -Sinus tachycardia rate of 105, [place] interval 153, QRS duration 91, QTc 404, no ST segment elevation. X-rays interpreted by me (1pt min.). @ -None done CT interpreted by me (1pt min.). @ -None done U/S interpreted by me (1pt. min.). @ -None done What testing was considered but not performed or refused? (CT, X-rays, U/S, labs)? Why? @ -None What meds were considered but not given or refused? Why? @ -None Did you discuss the management of the patient with other professionals (professionals i.e. , PA, MEDICAL ASSOCIATE, lab, RT, psych nurse, social security specialist, general labor forklift operator, teacher, plant protection officer, immigration case worker)? Give summary @ -No Was smoking cessation discussed for >3mins.? @ -No Was critical care preformed (if so, how long)? @ -No Were there social determinants of health that impacted care today? How? (Homelessness, low income, unemployed, alcoholism, drug addiction, t ransportation, low edu. Level, literacy, decrease access to med. care, assisted, rehab)? @ -No Was there de-escalation of care discussed even if they declined (Discuss DNR or withdrawal of care, Hospice)? DNR status @ -No What co-morbidities impacted this encounter? (DM, HTN, Smoking, COPD, CAD, Cance r, CVA, ARF, Chemo, Hep., AIDS, mental health diagnosis, sleep apnea, morbid obesity)? @Alcohol abuse Was patient admitted / discharged? Hospital course, mention meds given and route, prescriptions, significant lab abnormalities, going to OR and other pertinent info. @ 38-year-old presenting with alcohol intoxication. Patient had mentioned some chest discomfort. I did provide workup including EKG, laboratory testing including troponin. Patient is intoxicated with an alcohol level of 200. No troponin elevation, otherwise normal labs. Patient allowed to sleep in the emergency department until sober and discharged in stable condition. Undiagnosed new problem with uncertain prognosis? @ -No Drug Therapy requiring intensive monitoring for toxicity (Heparin, Nitro, Insulin, Cardizem)? @ -No Were any procedures done? @ -No Diagnosis/symptom? @ -Alcohol intoxication Acute, or Chronic, or Acute on Chronic? @ -Acute on chronic Uncomplicated (without systemic symptoms) or Complicated (systemic symptoms)? @ -Default Side effects of treatment? @ -No Exacerbation, Progression, or Severe Exacerbation? @ -No Poses a threat to life or bodily function? How? (Chest pain, [place], [place], pneumonia, PE, COPD, DKA, ARF, appy, cholecystitis, CVA, Diverticulitis, Homicidal, Suicidal, threat to staff... and all critical care pts) @ -No - Lab Data Result diagrams: 08/17/24 20:52 08/17/24 20:52 Lab Results 08/17/24 08/17/24 08/17/24 Range/Units 20:52 20:52 20:52 WBC 9.0 (3.8-10.6) k/uL RBC 5.17 (4.30-5.90) m/uL Hgb 15.6 (13.0-17.5) gm/dL Hct 47.9 (39.0-53.0) % MCV 92.7 (80.0-100.0) fL MCH 30.2 (25.0-35.0) pg MCHC 32.6 (31.0-37.0) g/dL RDW 14.4 (11.5-15.5) % Plt Count 365 (150-450) k/uL MPV 6.9 Neutrophils % 60 % Lymphocytes % 29 % Monocytes % 5 % Eosinophils % 2 % Basophils % 1 % Neutrophils # 5.4 (1.3-7.7) k/uL Lymphocytes # 2.6 (1.0-4.8) k/uL Monocytes # 0.5 (0-1.0) k/uL Eosinophils # 0.2 (0-0.7) k/uL Basophils # 0.1 (0-0.2) k/uL PT 10.2 (10.0-12.5) sec INR 0.9 (<1.2) APTT 20.4 L (22.0-30.0) sec Sodium 140 (137-145) mmol/L Potassium 3.7 (3.5-5.1) mmol/L Chloride 103 (98-107) mmol/L Carbon Dioxide 21 L (22-30) mmol/L Anion Gap 16 mmol/L BUN 3 L (9-20) mg/dL Creatinine 0.57 L (0.66-1.25) mg/dL Est GFR (CKD-EPI)AfAm >90 (>60 ml/min/1.73 sqM) Est GFR (CKD-EPI)NonAf >90 (>60 ml/min/1.73 sqM) Glucose 129 H (74-99) mg/dL Calcium 8.7 (8.4-10.2) mg/dL Magnesium 2.3 (1.6-2.3) mg/dL Total Bilirubin 0.5 (0.2-1.3) mg/dL AST 68 H (17-59) U/L ALT 53 H (4-49) U/L Alkaline Phosphatase 87 (38-126) U/L Troponin I (0.000-0.034) ng/mL Total Protein 7.2 (6.3-8.2) g/dL Albumin 4.5 (3.5-5.0) g/dL Lipase 80 (23-300) U/L Serum Alcohol 211 H* mg/dL 08/17/24 Range/Units 20:52 WBC (3.8-10.6) k/uL RBC (4.30-5.90) m/uL Hgb (13.0-17.5) gm/dL Hct (39.0-53.0) % MCV (80.0-100.0) fL MCH (25.0-35.0) pg MCHC (31.0-37.0) g/dL RDW (11.5-15.5) % Plt Count (150-450) k/uL MPV Neutrophils % % Lymphocytes % % Monocytes % % Eosinophils % % Basophils % % Neutrophils # (1.3-7.7) k/uL Lymphocytes # (1.0-4.8) k/uL Monocytes # (0-1.0) k/uL Eosinophils # (0-0.7) k/uL Basophils # (0-0.2) k/uL PT (10.0-12.5) sec INR (<1.2) APTT (22.0-30.0) sec Sodium (137-145) mmol/L Potassium (3.5-5.1) mmol/L Chloride (98-107) mmol/L Carbon Dioxide (22-30) mmol/L Anion Gap mmol/L BUN (9-20) mg/dL Creatinine (0.66-1.25) mg/dL Est GFR (CKD-EPI)AfAm (>60 ml/min/1.73 sqM) Est GFR (CKD-EPI)NonAf (>60 ml/min/1.73 sqM) Glucose (74-99) mg/dL Calcium (8.4-10.2) mg/dL Magnesium (1.6-2.3) mg/dL Total Bilirubin (0.2-1.3) mg/dL AST (17-59) U/L ALT (4-49) U/L Alkaline Phosphatase (38-126) U/L Troponin I <0.012 (0.000-0.034) ng/mL Total Protein (6.3-8.2) g/dL Albumin (3.5-5.0) g/dL Lipase (23-300) U/L Serum Alcohol mg/dL Disposition Clinical Impression: Alcohol use disorder, Alcohol intoxication Disposition: HOME SELF-CARE Condition: Fair Instructions (If sedation given, give patient instructions): Alcohol Intoxication (ED) Is patient prescribed a controlled substance at d/c from ED?: No Referrals: None,Stated [Primary Care Provider] - 1-2 days [facility] [NON-STAFF] - 1-2 days Time of Disposition: 00:30
[2024-08-17 21:18] LABS: ALT 53 U/L (4-49); AST 68 U/L (17-59); African American GFR (CKD) >90 (>60 ml/min/1.73 sqM); Albumin 4.5 g/dL (3.5-5.0); Alkaline Phosphatase 87 U/L (38-126); Anion Gap 16 mmol/L; Blood Urea Nitrogen 3 mg/dL (9-20); Calcium 8.7 mg/dL (8.4-10.2); Carbon Dioxide 21 mmol/L (22-30); Chloride 103 mmol/L (98-107); Glucose 129 mg/dL (74-99); Lipase 80 U/L (23-300); Magnesium 2.3 mg/dL (1.6-2.3); Non-African American GFR(CKD) >90 (>60 ml/min/1.73 sqM); Potassium 3.7 mmol/L (3.5-5.1); Sodium 140 mmol/L (137-145); Total Bilirubin 0.5 mg/dL (0.2-1.3); Total Protein 7.2 g/dL (6.3-8.2)
[2024-08-17 21:29] LABS: Alcohol 211 mg/dL
[2024-08-17 21:41] LABS: INR 0.9 (<1.2); Partial Thromboplastin Time 20.4 sec (22.0-30.0); Prothrombin Time 10.2 sec (10.0-12.5)
[2024-08-18 06:30] VITALS: BP 144/92; PULSE 99; RESP 18; TEMP 97.8
== END 2024-08-18 06:25 | disposition home or self-care (01) ==
LOC: EC 20:25
DX: F10.129 Alcohol abuse with intoxication, unspecified (principal); F17.200 Nicotine dependence, unspecified, uncomplicated; Y90.7 Blood alcohol level of 200-239 mg/100 ml
CPT/HCPCS: 36415; 93005; 80053; 83690; 83735; 84484; 85025; 85610; 85730; 99285; 96360; G0480; 80320

== ENCOUNTER 2024-08-23 22:22 | Emergency (ER) | payer OTHER ==
--- NOTE | 2024-08-23 23:29 | ED ---
Alcohol HPI - General Source: EMS Mode of arrival: EMS - History of Present Illness MD Complaint: alcohol intoxication <Landry Haas - Last Filed: 08/24/24 04:19> <Luigi Humphrey - Last Filed: 08/24/24 05:27> - General Stated Complaint: ETOH Time Seen by Provider: 08/23/24 22:26 - History of Present Illness Initial Comments: Patient is a 38-year-old with history of alcohol use disorder presented to the ER after he was found at a laundromat resting on the bench appears to be intoxicated from alcohol. Patient reports that he drank about a pint of alcohol earlier this evening. Currently endorses some nausea and vomiting, belly pain, visual and auditory hallucinations. Denies any fever, chills, chest pain, palpitations, diarrhea or constipation. (Landry Haas) - Related Data Home Medications Medication Instructions Recorded Confirmed Apixaban [Eliquis] 5 mg PO DIRECTED 08/13/24 08/17/24 Doxycycline Hyclate 100 mg PO DIRECTED 08/13/24 08/17/24 Folic Acid 1 mg PO DIRECTED 08/13/24 08/17/24 Thiamine [Vitamin B-1] 100 mg PO DIRECTED 08/13/24 08/17/24 Ibuprofen [Motrin] 800 mg PO DIRECTED 08/14/24 08/17/24 Allergies Allergy/AdvReac Type Severity Reaction Status Date / Time No Known Allergies Allergy Verified 08/23/24 22:46 Review of Systems ROS Other: All systems not noted in ROS Statement are negative. Constitutional: Denies: fever, chills Respiratory: Denies: cough, dyspnea Cardiovascular: Denies: chest pain, palpitations Gastrointestinal: Reports: abdominal pain, nausea, vomiting Genitourinary: Denies: urgency, dysuria <Landry Haas - Last Filed: 08/24/24 04:19> ROS Other: All systems not noted in ROS Statement are negative. <Luigi Humphrey - Last Filed: 08/24/24 05:27> ROS Statement: Those systems with pertinent positive or pertinent negative responses have been documented in the HPI. Past Medical History Past Medical History: Deep Vein Thrombosis (DVT), Thyroid Disorder Additional Past Medical History / Comment(s): ETOH abuse, past withdrawls with tremors/nausea/seizure, chronic low back pain, recent R knee/leg pain, DVT R leg, Catogory 5 blood disorder. Last Myocardial Infarction Date:: 07/2024 History of Any Multi-Drug Resistant Organisms: MRSA Date of last positivie culture/infection: august 2024 MDRO Source:: right side of face Past Surgical History: Cholecystectomy, Orthopedic Surgery Additional Past Surgical History / Comment(s): right knee tendon surgery Past Anesthesia/Blood Transfusion Reactions: Motion Sickness Additional Past Anesthesia/Blood Transfusion Reaction / Comment(s): Clausterphobia. Past Psychological History: Anxiety, Bipolar, Depression Smoking Status: Current every day smoker Past Alcohol Use History: Daily, Heavy Past Drug Use History: Cocaine, Marijuana, Methamphetamine - Past Family History Father History Unknown: Yes Family Medical History: CVA/TIA Additional Family Medical History / Comment(s): Unable to obtain family history secondary altered mentation Mother Family Medical History: Congestive Heart Failure (CHF) <Landry Haas - Last Filed: 08/24/24 04:19> General Exam <Landry Haas - Last Filed: 08/24/24 04:19> - General Exam Comments Initial Comments: GENERAL: This is a 38-year-old in no apparent distress at the time of examination. HEENT: Head is atraumatic, normocephalic. RESPIRATORY: Clear to auscultation bilaterally. No wheezing, rales, rhonchi, stridor, crackles. CARDIOVASCULAR: Regular rate and rhythm. No systolic or diastolic murmur noted. GASTROINTESTINAL: No distention noted. No abdominal tenderness to palpation. INTEGUMENTARY: No cyanosis. No jaundice. No rashes noted. No cellulitis noted. EXTREMITIES: No lower extremity edema bilaterally. NEUROLOGIC: Cranial nerves II-XII intact. PSYCHIATRIC: Awake, alert, and oriented to person, not to time or place. Appropriate affect. Intact judgement and insight. (Landry Haas) Course Vital Signs 08/23/24 08/24/24 08/24/24 22:36 00:00 01:27 Temperature 97.4 F L 97.5 F L Pulse Rate 99 95 Respiratory 20 Rate Blood Pressure 127/82 111/61 123/74 O2 Sat by Pulse 98 95 94 L Oximetry 08/24/24 08/24/24 08/24/24 02:00 03:00 04:00 Temperature Pulse Rate Respiratory Rate Blood Pressure 110/72 127/77 107/64 O2 Sat by Pulse 93 L 95 94 L Oximetry 08/24/24 05:00 Temperature Pulse Rate 100 Respiratory Rate Blood Pressure 100/49 O2 Sat by Pulse 96 Oximetry Medical Decision Making <Landry Haas - Last Filed: 08/24/24 04:19> <Luigi Humphrey - Last Filed: 08/24/24 05:27> - Medical Decision Making Was pt. sent in by a medical professional or institution (, JOANA, ASSISTANCE COORDINATOR, urgent care, hospital, or retirement...) When possible be specific @ -No Did you speak to anyone other than the patient for history (EMS, parent, family, police, friend...)? What history was obtained from this source @ -No Did you review nursing and triage notes (agree or disagree)? Why? @ -Reviewed and agree with nursing and triage notes Were old charts reviewed (outside hosp., previous admission, EMS record, old EKG, old radiological studies, urgent care reports/EKG's, retirement records)? Report findings @ -Reviewed previous admission Differential Diagnosis? @ -Alcohol intoxication EKG interpreted by me (3pts min.). @ -not ordered X-rays interpreted by me (1pt min.). @ -not ordered CT interpreted by me (1pt min.). @ -not ordered U/S interpreted by me (1pt. min.). @ -not ordered What testing was considered but not performed or refused? (CT, X-rays, U/S, labs)? Why? @ -None What meds were considered but not given or refused? Why? @ -None Did you discuss the management of the patient with other professionals (professionals i.e. , JOANA, ASSISTANCE COORDINATOR, lab, RT, psych nurse, director social service, software developer intern, teacher, antisubmarine weapons officer, family service caseworker)? Give summary @ -Discussed with attending physician Was smoking cessation discussed for >3mins.? @ -No Was critical care preformed (if so, how long)? @ -No Were there social determinants of health that impacted care today? How? (Homelessness, low income, unemployed, alcoholism, drug addiction, transportation, low edu. Level, literacy, decrease access to med. care, custodial, rehab)? @ -Alcoholism Was there de-escalation of care discussed even if they declined (Discuss DNR or withdrawal of care, Hospice)? DNR status @ -no What co-morbidities impacted this encounter? (DM, HTN, Smoking, COPD, CAD, Cancer, CVA, ARF, Chemo, Hep., AIDS, mental health diagnosis, sleep apnea, morbid obesity)? @ -Alcohol use disorder Was patient admitted / discharged? Hospital course, mention meds given and route, prescriptions, significant lab abnormalities, going to OR and other pertinent info. @ -Patient is a 38-year-old male with history of alcohol use disorder presented to the ED with alcohol intoxication was found in a laundromat resting on a bench. He reports drinking about a pint of alcohol earlier last night. Patient will be monitored and can be discharged once he becomes sober in the morning. Undiagnosed new problem with uncertain prognosis? @ -No Drug Therapy requiring intensive monitoring for toxicity (Heparin, Nitro, Insulin, Cardizem)? @ -No Were any procedures done? @ -No Diagnosis/symptom? @ -Alcohol intoxication Acute, or Chronic, or Acute on Chronic? @ -Acute Uncomplicated (without systemic symptoms) or Complicated (systemic symptoms)? @ -Uncomplicated Side effects of treatment? @ -No Exacerbation, Progression, or Severe Exacerbation? @ -No exacerbation Poses a threat to life or bodily function? How? (Chest pain, USA, PR, pneumonia, PE, COPD, DKA, ARF, appy, cholecystitis, CVA, Diverticulitis, Homicidal, Suicidal, threat to staff... and all critical care pts) @ -No (Landry Haas) I personally saw the patient and performed the critical portion of the service. I discussed the patient care with the resident. I directed management, care pl anning and final disposition of the patient. This includes, but not limited to, review of all lab work, radiological studies, EKG's, consultations, vital signs, and nursing notes. EKG interpreted by me (3pts min.) @ [as above] X-Rays interpreted by me (1 pt min.) @ [none] CT interpreted by me ( 1pt min.) @ [none] U/S interpreted by me (1 pt min.) @ [none] Critical care time of [0] minutes excluding separately billable procedures was spent in conjunction with critical care activities provided by the Resident and Attending simultaneously. I was present during [no procedures] for all critical portions of the procedure and as immediately available to furnish service during the entire procedure. (Luigi Humphrey) Disposition Is patient prescribed a controlled substance at d/c from ED?: No <Landry Haas - Last Filed: 08/24/24 04:19> Time of Disposition: 05:27 <Luigi Humphrey - Last Filed: 08/24/24 05:27> Clinical Impression: Alcohol intoxication Narrative: Patient is a 38 year old male with alcohol use disorder comes in with alcohol intoxication. He can be discharged once he becomes sober in the morning (Landry Haas) Disposition: HOME SELF-CARE Condition: Stable Instructions (If sedation given, give patient instructions): Alcohol Intoxication (ED) Referrals: None,Stated [Primary Care Provider] - 1-2 days
[2024-08-24 07:04] VITALS: BP 114/58; PULSE 105; RESP 18; TEMP 98.2
== END 2024-08-24 07:04 | disposition home or self-care (01) ==
LOC: EC 22:22
DX: F10.129 Alcohol abuse with intoxication, unspecified (principal); F17.200 Nicotine dependence, unspecified, uncomplicated
CPT/HCPCS: 99284

== ENCOUNTER 2024-08-24 21:23 | Inpatient (IN) | payer MEDICAID, OTHER ==
--- NOTE | 2024-08-24 22:02 | ED ---
General Adult HPI - General Chief complaint: Psychiatric Symptoms Stated complaint: Mental Health Time Seen by Provider: 08/24/24 21:40 Source: patient Mode of arrival: ambulatory Limitations: no limitations - History of Present Illness Initial comments: Patient is a 38-year-old gentleman past medical history of alcoholism, homelessness, bipolar disorder presenting today for mental health evaluation. Patient states that he has been homeless and has a lot going on in his head right now. History is limited as patient is very tangential speech and is intoxicated. States he drank a pint of vodka and 2 beers prior to arrival. Does drink alcohol daily. Denies illicit drug use. States he supposed be taking medications for his mental health however he does not take these. He is very vague about why he is not he is medications. Denies additional complaints and states he is here for EPS evaluation, though during review of systems he denies fevers, chills, chest pain, shortness of breath, abdominal pain. States that he has been intermittently vomiting today. Emesis is NBNB and he is unsure when he last threw up. No melena or hematochezia. Denies SI/HI. - Related Data Home Medications Medication Instructions Recorded Confirmed Apixaban [Eliquis] 5 mg PO DIRECTED 08/13/24 08/25/24 Doxycycline Hyclate 100 mg PO DIRECTED 08/13/24 08/25/24 Folic Acid 1 mg PO DIRECTED 08/13/24 08/17/24 Thiamine [Vitamin B-1] 100 mg PO DIRECTED 08/13/24 08/17/24 Ibuprofen [Motrin] 800 mg PO DIRECTED 08/14/24 08/25/24 Allergies Allergy/AdvReac Type Severity Reaction Status Date / Time No Known Allergies Allergy Verified 08/24/24 21:39 Review of Systems ROS Statement: Those systems with pertinent positive or pertinent negative responses have been documented in the HPI. ROS Other: All systems not noted in ROS Statement are negative. Past Medical History Past Medical History: Deep Vein Thrombosis (DVT), Thyroid Disorder Additional Past Medical History / Comment(s): ETOH abuse, past withdrawls with tremors/nausea/seizure, chronic low back pain, recent R knee/leg pain, DVT R leg, Catogory 5 blood disorder. Last Myocardial Infarction Date:: 07/2024 History of Any Multi-Drug Resistant Organisms: MRSA Date of last positivie culture/infection: august 2024 MDRO Source:: right side of face Past Surgical History: Cholecystectomy, Orthopedic Surgery Additional Past Surgical History / Comment(s): right knee tendon surgery Past Anesthesia/Blood Transfusion Reactions: Motion Sickness Additional Past Anesthesia/Blood Transfusion Reaction / Comment(s): Clausterphobia. Past Psychological History: Anxiety, Bipolar, Depression Smoking Status: Current every day smoker Past Alcohol Use History: Daily, Heavy Past Drug Use History: Cocaine, Marijuana, Methamphetamine - Past Family History Father History Unknown: Yes Family Medical History: CVA/TIA Additional Family Medical History / Comment(s): Unable to obtain family history secondary altered mentation Mother Family Medical History: Congestive Heart Failure (CHF) General Exam - General Exam Comments Initial Comments: PE: CONSTITUTIONAL: [no apparent distress, disheveled appearing, nontoxic not ill- appearing] SKIN: [warm, dry, no jaundice, hives or petechiae] EYES:[ pupils are equally round, extraocular movements intact without nystagmus, clear conjunctiva, non-icteric sclera] HENT: [normocephalic, atraumatic, moist mucus membranes, oropharynx clear without exudates] NECK: , [Full range of motion, normal appearance] PULMONARY: [clear to auscultation without wheezes, rhonchi, or rales, normal excursion, no accessory muscle use and no stridor] CARDIOVASCULAR:[ regular rate, rhythm, normal S1 and S2. No appreciated murmurs, rubs or gallops. Extremities are well-perfused] GASTROINTESTINAL: [soft, active bowel sounds throughout, non-tender, non-distended, no palpable masses, no rebound or guarding. No hepatosplenomegaly] GENITOURINARY: MUSCULOSKELETAL: [Extremities have no gross deformity ] NEUROLOGIC: [_a/o x 3, GCS 15, no focal neurologic deficits, Moves all extremities x 4 without motor or sensory deficit] PSYCHIATRIC:[ flat mood and affect, speech is rushed, thought process is tangential, pt is visibly intoxicated] Limitations: no limitations Course Vital Signs 08/24/24 21:36 Temperature 98.9 F Pulse Rate 92 Respiratory 17 Rate Blood Pressure 143/87 O2 Sat by Pulse 98 Oximetry Medical Decision Making - Medical Decision Making Was pt. sent in by a medical professional or institution (Dr., PA, SHOP FOREMAN, urgent care, hospital, or senior living...) When possible be specific @ -No Did you speak to anyone other than the patient for history (EMS, parent, family, police, friend...)? What history was obtained from this source @ -No Did you review nursing and triage notes (agree or disagree)? Why? @ -I reviewed nursing and triage notes Were old charts reviewed (outside hosp., previous admission, EMS record, old EKG, old radiological studies, urgent care reports/EKG's, senior living records)? Report findings @ -Medical records reviewed-Medical records reviewed, patient has been here multiple times, 6 times in the last 2 weeks, yesterday here for alcohol intoxication, reviewed note patient was discharged after monitoring. Here for intoxication on 08/17/2024 as well did report chest pain during that evaluationm had negative troponin and otherwise normal labs and was discharged home after ob servation. Differential Diagnosis (chest pain, altered mental status, abdominal pain women, abdominal pain men, vaginal bleeding, weakness, fever, dyspnea, syncope, headache, dizziness, GI bleed, back pain, seizure, CVA, palpatations, mental health, musculoskeletal)? @ -Differential Mental Health Depression, anxiety, bipolar, psychosis, schizophrenia, borderline personality, situational depression, adjustment disorder, behavioral disorder, brain tumor, malingering, substance abuse, encephalopathy, medication reaction, dementia, hypothyroidism, degenerative neurologic disorder, lupus.... This is not meant to be all-inclusive list EKG interpreted by me (3pts min.). @ -As above X-rays interpreted by me (1pt min.). @ -None done CT interpreted by me (1pt min.). @ -None done U/S interpreted by me (1pt. min.). @ -None done What testing was considered but not performed or refused? (CT, X-rays, U/S, labs)? Why? @ -None What meds were considered but not given or refused? Why? @ -None Did you discuss the management of the patient with other professionals (professionals i.e. , PA, SHOP FOREMAN, lab, RT, psych nurse, hospice social worker, pack train driver, teacher, chief creative officer, pillowcase cutter)? Give summary @ -No Was smoking cessation discussed for >3mins.? @ -No Was critical care preformed (if so, how long)? @ -No Were there social determinants of health that impacted care today? How? (Homelessness, low income, unemployed, alcoholism, drug addiction, transportation, low edu. Level, literacy, decrease access to med. care, retirement, rehab)? Homelessness Was there de-escalation of care discussed even if they declined (Discuss DNR or withdrawal of care, Hospice)? @ -No What co-morbidities impacted this encounter? (DM, HTN, Smoking, COPD, CAD, Cancer, CVA, ARF, Chemo, Hep., AIDS, mental health diagnosis, sleep apnea, morbid obesity)? @ -Alcoholism Was patient admitted / discharged? Hospital course, mention meds given and route, prescriptions, significant lab abnormalities, going to OR and other pertinent info. @ Admission to psychiatric services- Patient is a 38-year-old gentleman past medical history of alcoholism and homelessness. Here today for mental health evaluation. On my assessment patient is visibly intoxicated otherwise resting comfortably no acute distress. He does have somewhat rapid and tangential speech making history gathering limited. Denies SI/HI. Will obtain PBT and patient will be seen by EPS once sober. Patient evaluated by EPS and will be admitted to the psychiatric floor for further treatment. Undiagnosed new problem with uncertain prognosis? @ -No Drug Therapy requiring intensive monitoring for toxicity (Heparin, Nitro, Insulin, Cardizem)? @ -No Were any procedures done? @ -No Diagnosis/symptom? @ Mental health evaluation Acute, or Chronic, or Acute on Chronic? @ -acute Uncomplicated (without systemic symptoms) or Complicated (systemic symptoms)? @uncomplicated Side effects of treatment? @ -No Exacerbation, Progression, or Severe Exacerbation? @ -No Poses a threat to life or bodily function? How? (Chest pain, USA, PA, pneumonia, PE, COPD, DKA, ARF, appy, cholecystitis, CVA, Diverticulitis, Homicidal, Suicidal, threat to staff... and all critical care pts) @ -No - Lab Data Result diagrams: 08/26/24 06:06 08/26/24 06:06 Lab Results 08/25/24 Range/Units 01:50 SARS-CoV-2 (PCR) Not Detected (Not Detectd) Disposition Clinical Impression: Alcohol intoxication, Mental health problem Disposition: TRANSFER TO PSYCH HOSP/UNIT Condition: Stable
[2024-08-25] MEDS ORDERED: MAG HYDROX/AL HYDROX/SIMETH 355 ML BOTTLE PO PRN (03:28)
[2024-08-25] MEDS ORDERED: HALOPERIDOL LACTATE 5 MG/ML 1 ML VIAL IM PRN (03:28)
[2024-08-25] MEDS ORDERED: MAGNESIUM HYDROXIDE 2,400 MG/30 ML CUP PO PRN (03:28)
[2024-08-25] MEDS ORDERED: LORazepam 2 MG/ML INJ IM PRN (03:28)
[2024-08-25] MEDS ORDERED: IBUPROFEN 800 MG TAB PO PRN (03:45)
[2024-08-25] MEDS: LORazepam 1 MG TAB PO PRN ×3 (04:14→09:31)
[2024-08-25] MEDS: MULTIVITAMINS, THERA 1 EACH TAB PO SCH (08:41)
[2024-08-25] MEDS: FOLIC ACID 1 MG TAB PO SCH ×2 (08:41→15:19)
[2024-08-25] MEDS: APIXABAN 5 MG TAB PO SCH (08:41)
[2024-08-25] MEDS: THIAMINE 100 MG TAB PO SCH (08:41)
[2024-08-25] MEDS: DOXYCYCLINE 100 MG TABLET PO SCH (08:41)
[2024-08-25] MEDS: NICOTINE 14MG/24HR PATCH TRANSDERM SCH (08:42)
[2024-08-25] MEDS ORDERED: DOXYCYCLINE 100 MG TABLET PO SCH (09:00)
--- NOTE | 2024-08-25 15:06 | P.HP ---
Psychiatric H&P - . H&P Date: 08/25/24 History & Physical: Allergies Allergy/AdvReac Type Severity Reaction Status Date / Time No Known Allergies Allergy Verified 08/24/24 21:39 Vital Signs Temp 97.4 F L 08/25/24 08:39 Pulse 114 H 08/25/24 08:39 Resp 16 08/25/24 04:35 BP 117/78 08/25/24 08:39 Pulse Ox 98 08/25/24 08:39 FiO2 Intake & Output 08/24/24 08/25/24 08/25/24 18:59 06:59 18:59 Weight 119.295 kg Laboratory Last Values SARS-CoV-2 (PCR) Not Detected (Not Detectd) 08/25/24 01:50 08/25/24 15:00 IDENTIFYING DATA: Patient is a single, unemployed, 38-year-old male, currently lives with his friends HPI: Patient presented to the ED yesterday complaining of depression and suicidal ideations. Patient was evaluated by EPS and according to note "Psychological Stress Evaluator assessed pt in ER RM 12 from [id number]. Pt brought self into ER seeking a mental health eval because "I have so much going on in my head". Patient BAT 0.132 upon arrival. Patient denies recent use of meth, cocaine or other substances but states he previously has used both meth and cocaine. Patient states he was recently in senior care for over 12 months related to multiple retail fraud charges, pt states he is not on probation. Patient states he is homeless and has been staying whereever he can. Patient reports anxiety "10/10" and depression "10/10". Patient previously open with [facility] but is not sure if his case is still open, pt has not been taking any medication [facility] prescribed stating the senior care did not give it to him. Patient reports SI with plan "to drink himself to or walk into traffic". Patient is not able to safety plan. Patient denies HI. Pt reports drinking at least one pint daily but denies seizure history. Upon assessment pt is disheveled, does not make eye contact and is malodorous. Pt states he has no support system, no access to guns or weapons. Pt states he wants help, "I just need to get back on meds, so I can think more clearly." Pt reports difficulty falling asleep and staying asleep." Patient was seen today laying in bed. He appeared to be disheveled in appearance longer hair, unshaven. He claims that he just got out of senior care about a month ago. Claims that he was in there for over a year for "resisting an obstruction". He was fairly evasive guarded. Poor historian. Claims that he has been drinking about 1/5 of liquor a day. Claims that he has been off his medications. Claims that his sleep has been poor, endorsing feeling stressed overwhelmed and hopeless. Endorsing depression and anxiety. Claims that he was having suicidal thoughts however claims that those have been on and off. Not currently having them. Denying any homicidal ideations denying any auditory or visual hallucinations. Claims that his appetite is fair. Also admitted to using methamphetamine and ci garettes. He was asking about pain medications. PSYCH HX: Patient has a long history of polysubstance use (cane, methamphetamine and alcohol), depression, and failure to follow-up with outpatient providers. He has had numerous psychiatric admissions at our psychiatric unit with the last admission was over a year ago. He was discharged on Cymbalta Seroquel PMH: As per ER note ALLERGIES: As per HPI SUBSTANCE HX: Alcohol: Drinking a pint of vodka/liquor daily. History of DUI History of sorting methamphetamine recreationally. History of illicit benzodiazepine use. History of abusing cocaine SOCIAL/LEGAL HX: Patient was born and raised in [place]. He is single, never , but has one son who lives with his son's mother. His mother is now . It was 12 grade education. He currently lives with his friends. Hx being in senior care 15+ times, recently released from senior care a month ago. FAM PSYCH HX: Father- potential mental illness? MENTAL STATUS EXAM: General Appearance: Patient appears to be well-built, several tattoos, has a brown, longer hair, stated age is alert, directable, and attempts to cooperate. Patient appears to have fair hygiene and grooming. Behavior: Patient is laying in bed, appears to be mildly sedated. Uncooperative Speech: Patient's speech is fluent and nonpressured. Soft tone, monotone Mood/Affect: Patient reports their mood is depressed and anxious, affect is constricted. Suicidality/Homicidality: Patient denies having any homicidal ideation intent or plan. However patient denies suicidal ideation currently Perceptions: Patient denies any visual hallucinations and denies any auditory hallucinations Though content/process: There is no evidence of any delusional thought content and thought process is mostly linear and concrete. Focused on medications Memory and concentration: AOX3, grossly intact for the purposes of this session. Judgment and insight: poor STRENGTHS/WEAKNESSES: Strength is that patient is resilient. Weakness is that patient engages in polysubstance abuse and and has poor judgment. INTELLECT: average IMPRESSIONS: Major depressive disorder, recurrent, severe without psychotic features Alcohol use disorder, severe Methamphetamine abuse Nicotine dependence PLAN: -Patient is admitted under voluntary status to MHU for stabilization of psychiatric symptoms and safety. Patient signed adult voluntary form and medication consent and is placed in patient's chart. -Medications : Zoloft 50 mg daily for mood/anxiety, Seroquel 50 mg nightly for mood stabilization/sleep. Librium with plan to taper for alcohol withdrawal. Will offer anticraving medications. Trazodone 100 mg nightly as needed for sleep - Nicotine gum & patch - CIWA protocol with Ativan - vitamins replacement -Patient was counselled on substance abuse and desired to cut back on use. -Patient was informed of the risks, benefits and side effects of the medication and patient verbally consented to taking the medications. Patient did not want to sign med consent form and was placed in chart. -Internal Medicine consult to perform medical evaluation and physical. -SW on board for discharge planning. Encourage patient to participate in groups to work on coping skills 08/25/24 15:01
[2024-08-25] MEDS: SERTRALINE 50 MG TAB PO SCH (15:19)
[2024-08-25] MEDS: chlordiazePOXIDE 25 MG CAP PO SCH (15:19)
[2024-08-25] MEDS: NICOTINE GUM (POLACRILEX) 2 MG GUM BUCCAL PRN (16:58)
[2024-08-25] MEDS: QUEtiapine 50 MG TAB PO SCH (20:05)
[2024-08-25] MEDS: haloperidoL 5 MG TAB PO PRN (20:07)
[2024-08-26 06:25] LABS: Basophils % (A) 1 %; Eosinophils # (A) 0.2 k/uL (0-0.7); Eosinophils % (A) 3 %; HCT 42.6 % (39.0-53.0); HGB 14.2 gm/dL (13.0-17.5); Lymphocytes % (A) 34 %; MCH 30.9 pg (25.0-35.0); MCHC 33.4 g/dL (31.0-37.0); MCV 92.5 fL (80.0-100.0); Mean Platelet Volume 7.4; Monocytes # (A) 0.3 k/uL (0-1.0); Monocytes % (A) 5 %; Neutrophils # (A) 3.2 k/uL (1.3-7.7); Neutrophils % (A) 55 %; RBC 4.61 m/uL (4.30-5.90); RDW 14.9 % (11.5-15.5); WBC 5.9 k/uL (3.8-10.6)
[2024-08-26 06:33] LABS: Platelet Count 164 k/uL (150-450)
[2024-08-26 06:37] LABS: ALT 38 U/L (4-49); AST 37 U/L (17-59); African American GFR (CKD) >90 (>60 ml/min/1.73 sqM); Albumin 3.4 g/dL (3.5-5.0); Alkaline Phosphatase 96 U/L (38-126); Anion Gap 4 mmol/L; Bilirubin, Delta 0.3 mg/dL (0.0-0.2); Bilirubin,Unconjugated 0.4 mg/dL (0.0-1.1); Blood Urea Nitrogen 5 mg/dL (9-20); Calcium 8.7 mg/dL (8.4-10.2); Carbon Dioxide 25 mmol/L (22-30); Chloride 107 mmol/L (98-107); Glucose 109 mg/dL (74-99); Non-African American GFR(CKD) >90 (>60 ml/min/1.73 sqM); Potassium 3.4 mmol/L (3.5-5.1); Sodium 136 mmol/L (137-145); Total Bilirubin 0.7 mg/dL (0.2-1.3)
--- NOTE | 2024-08-26 10:28 | P.PN ---
Progress Note - Text Progress Note Date: 08/26/24 Interval history: Patient was seen today for psychiatric follow-up. Patient claims that he has been taking his medications, required Haldol and Ativan PRNs last night. Claims that he had difficulty with sleep. Claims that he still having some minor withdrawals at this time, did not visibly have shaking/tremors. He was a bit more awake today, conversing with automobile service writer, answered some questions. Was rambling at times, endorsing grandiosity claiming that he was "famous in this town". Continues to have very poor reality testing, poor insight judgment. Seem superficially agreeable to go to rehab or retirement. Poor understanding of his condition and need for help. He was fairly calm during the interaction, denies any irritability. Claims that he still having some anxiety, denies any depression. Denies any auditory or visual hallucinations denies any suicidal homicidal ideations intent or plan. MENTAL STATUS EXAM: General Appearance: Patient appears to be well-built, several tattoos, has a brown, longer hair, stated age is alert, directable, and attempts to cooperate. Patient appears to have 4 hygiene and grooming. Behavior: Patient is laying in bed, less sedated today, mildly more cooperative Speech: Patient's speech is fluent and nonpressured. Soft tone, monotone, improving mildly Mood/Affect: Patient reports their mood is "mainly just anxious", affect is constricted. Suicidality/Homicidality: Patient denies having any homicidal ideation intent or plan. patient denies suicidal ideation currently Perceptions: Patient denies any visual hallucinations and denies any auditory hallucinations Though content/process: There is no evidence of any delusional thought content and thought process is mostly linear and concrete. Rambling at times, endorsing grandiosity Memory and concentration: AOX3, grossly intact for the purposes of this session. Judgment and insight: Chronically poor IMPRESSIONS: Major depressive disorder, recurrent, severe without psychotic features Alcohol use disorder, severe Methamphetamine abuse Nicotine dependence PLAN: -Patient is admitted under voluntary status to MHU for stabilization of psychiatric symptoms and safety. Patient signed adult voluntary form and medication consent and is placed in patient's chart. -Medications : Zoloft 50 mg daily for mood/anxiety, increase Seroquel 100 mg nightly for mood stabilization/sleep. Librium with plan to taper for alcohol withdrawal, will commence tapering tomorrow. Will offer anticraving medications. Trazodone 100 mg nightly as needed for sleep - Nicotine gum & patch - CIWA protocol with Ativan - vitamins replacement - on board for discharge planning. Encourage patient to participate in groups to work on coping skills. Still unsure if patient is willing to go to rehab or not versus homeless retirement.
[2024-08-26 10:37] LABS: Chol/HDL Ratio 2.73 Ratio; LDL Cholesterol,Calculated 73.1 mg/dL (0.0-131.0)
[2024-08-26] MEDS: QUEtiapine 100 MG TAB PO SCH (20:27)
[2024-08-26] MEDS: POTASSIUM CHLORIDE ER 20 MEQ TAB.ER PO STA (21:17)
[2024-08-26] MEDS: IBUPROFEN 800 MG TAB PO PRN (21:20)
--- NOTE | 2024-08-26 23:29 | P.CONS ---
History of Present Illness - Reason for Consult Consult date: 08/26/24 - History of Present Illness Patient is a 38-year-old male with Factor V Leiden presenting to the ED with suicidal ideation. Patient seen and evaluated in mental health unit with MHU RN present. History is very limited due to tangential speech. Patient admits to drinking 1/5 of liquor a day. States he has been stressed. Has history of alcohol use disorder, methamphetamine abuse, nicotine dependence. Patient denies any fever, chills, chest pain, shortness of breath, abdominal pain. Patient admits to excessive alcohol use, methamphetamine use, nicotine dependence Pertinent positives and negatives as discussed above, a complete review of systems was performed and all other systems are negative. Vitals: Signs Reviewed Physical Exam: General: nontoxic, no distress, appears at stated age Derm: warm, dry, intact Head: atraumatic, normocephalic, symmetric Eyes: EOMI, anicteric sclera Mouth: no lip lesion, mucus membranes moist Cardiovascular: S1 S2 reg, no murmur, rubs, or gallops Lungs: CTA bilateral, no rhonchi, no rales, no accessory muscle use Abdominal: soft, non-tender to palpataion, no appreciable organomegaly Extremities: no gross muscle atrophy, no edema, no contractures Neuro: Alert, Oriented, CNII-XII grossly intact, gait normal Psych: well appearing, appropriate affect Data Received Today: Pertinent Labs: WBC 5.9, Hgb 14.2, platelet 164 Imaging: N/A Assessment and Plan: History of factor V Leiden Continue Eliquis 5 mg twice daily Hypokalemia K 3.4 Replace with KCl 40 mEq PO once Alcohol use disorder Methamphetamine abuse Nicotine dependence Counseled patient on importance of cessation Major depressive disorder Defer management to primary psychiatry service Code status: Full code Michelle Carpio MD PGY-1 IM Dictation was produced using [employer] dictation software. please excuse any grammatical, word or spelling errors. agree with resident note and assessment and plan , patient stable overall from medical standpoint Past Medical History Past Medical History: Deep Vein Thrombosis (DVT), Thyroid Disorder Additional Past Medical History / Comment(s): chronic low back pain, Hx DVT R leg, Factor 5 blood disorder. Last Myocardial Infarction Date:: 07/2024 History of Any Multi-Drug Resistant Organisms: MRSA Year Discovered:: august 2024 MDRO Source:: right side of face Past Surgical History: Cholecystectomy, Orthopedic Surgery Additional Past Surgical History / Comment(s): right knee tendon surgery Past Anesthesia/Blood Transfusion Reactions: Motion Sickness Additional Past Anesthesia/Blood Transfusion Reaction / Comm: Clausterphobia. Past Psychological History: Anxiety, Bipolar, Depression Smoking Status: Current every day smoker, Vaper Past Alcohol Use History: Abuse, Daily, Heavy Past Drug Use History: Cocaine, Marijuana, Methamphetamine - Past Family History Father History Unknown: Yes Family Medical History: CVA/TIA Additional Family Medical History / Comment(s): Unable to obtain family history secondary altered mentation Mother Family Medical History: Congestive Heart Failure (CHF) Medications and Allergies Home Medications Medication Instructions Recorded Confirmed Type Apixaban [Eliquis] 5 mg PO DIRECTED 08/13/24 08/25/24 History Doxycycline Hyclate 100 mg PO DIRECTED 08/13/24 08/25/24 History Folic Acid 1 mg PO DIRECTED 08/13/24 08/17/24 History Thiamine [Vitamin B-1] 100 mg PO DIRECTED 08/13/24 08/17/24 History Ibuprofen [Motrin] 800 mg PO DIRECTED 08/14/24 08/25/24 History Allergies Allergy/AdvReac Type Severity Reaction Status Date / Time No Known Allergies Allergy Verified 08/24/24 21:39 Physical Exam Vitals: Vital Signs Temp Pulse Resp BP Pulse Ox 08/26/24 08:02 97.5 F L 101 H 18 122/86 98 08/25/24 21:04 97.7 F 107 H 12 135/88 98 Results CBC & Chem 7: 08/26/24 06:06 08/26/24 06:06 Labs: Abnormal Lab Results - Last 24 Hours (Table) 08/26/24 Range/Units 06:06 Sodium 136 L (137-145) mmol/L Potassium 3.4 L (3.5-5.1) mmol/L BUN 5 L (9-20) mg/dL Creatinine 0.60 L (0.66-1.25) mg/dL Glucose 109 H (74-99) mg/dL Delta Bilirubin 0.3 H (0.0-0.2) mg/dL Total Protein 6.0 L (6.3-8.2) g/dL Albumin 3.4 L (3.5-5.0) g/dL
[2024-08-27 00:29] LABS: Partial Thromboplastin Time 23.6 sec (22.0-30.0); Prothrombin Time 10.8 sec (10.0-12.5)
--- NOTE | 2024-08-27 10:29 | P.PN ---
Progress Note - Text Progress Note Date: 08/27/24 Interval history: Patient was seen today for psychiatric follow-up. Patient was wandering the h allways today. he continues to appear to be discheveled in appearance. he has been taking ativan for anxiety and required haldol prn last night. today he was focused on discharge. states that he would need a ride [facility] [place] [facility] where he can stay with family. states that he does not feel he needs rehab and wont gain anything from it. very poor insight and judgment. claism he slept a bit better last night. Was rambling at times, less grandiosity today and less delusional. Poor understanding of his condition and need for help. He was fairly calm during the interaction, denies any irritability. Denies any auditory or visual hallucinations denies any suicidal homicidal ideations intent or plan. MENTAL STATUS EXAM: General Appearance: Patient appears to be well-built, several tattoos, has a brown, longer hair, stated age is alert, directable, and attempts to cooperate. Patient appears to have discheveled appearance/ hygiene and grooming. Behavior: Patient is walking, less sedated today, mildly more cooperative, superficial and argumentative. Speech: Patient's speech is fluent and nonpressured. Soft tone, monotone, improving mildly Mood/Affect: Patient reports their mood is "mainly just anxious", affect is constricted. Suicidality/Homicidality: Patient denies having any homicidal ideation intent or plan. patient denies suicidal ideation currently Perceptions: Patient denies any visual hallucinations and denies any auditory hallucinations Though content/process: There is no evidence of any delusional thought content, fairly concrete. Rambling at times, focused on rehab. Memory and concentration: AOX3, grossly intact for the purposes of this session. Judgment and insight: Chronically poor IMPRESSIONS: Major depressive disorder, recurrent, severe without psychotic features Alcohol use disorder, severe Methamphetamine abuse Nicotine dependence PLAN: -Patient is admitted under voluntary status to MHU for stabilization of psychiatric symptoms and safety. Patient signed adult voluntary form and medication consent and is placed in patient's chart. -Medications : increase Zoloft 100 mg daily for mood/anxiety, increase Seroquel 150 mg nightly for mood stabilization/sleep. decrease Librium today with plan to taper for alcohol withdrawal. he is refusing any anticraving medications for etoh use. Trazodone 100 mg nightly as needed for sleep - Nicotine gum & patch - CIWA protocol with Ativan - vitamins replacement - on board for discharge planning. Encourage patient to participate in groups to work on coping skills. refusing rehab. wants to be discharged to his families house in [facility]. hopeful for discharge early next week
[2024-08-27] MEDS: SERTRALINE 50 MG TAB PO STA (11:53)
[2024-08-27] MEDS: QUEtiapine 50 MG TAB PO SCH (21:25)
[2024-08-27] MEDS: LORazepam 1 MG TAB PO PRN (21:27)
[2024-08-28] MEDS: SERTRALINE 100 MG TAB PO SCH (08:51)
--- NOTE | 2024-08-28 11:57 | P.PN ---
Progress Note - Text Progress Note Date: 08/28/24 Interval history: Patient was seen today for psychiatric follow-up. Patient was seen laying in bed today, continues to have a mildly disheveled appearance. States that he has "lots of things to do" was fairly focused on discharge today. He continues to ramble at times, some of it was illogical. He continues to state that he has family in [place] that he can go and stay with. He continues have very poor insight poor judgment. Claims that he continues to have some issues with sleep, was requesting to have a higher dose of his Seroquel. Continues to refuse rehab. Has been eating well. less grandiosity today and less delusional. Poor understanding of his condition and need for help. He was fairly calm during the interaction, denies any irritability. Denies any auditory or visual hallucinations denies any suicidal homicidal ideations intent or plan. MENTAL STATUS EXAM: General Appearance: Patient appears to be well-built, several tattoos, has a brown, longer hair, stated age is alert, directable, and attempts to cooperate. Patient appears to have discheveled appearance/ hygiene and grooming. Behavior: Patient is walking, less sedated today, mildly more cooperative, superficial and argumentative. Improving mildly Speech: Patient's speech is fluent and nonpressured. Soft tone, monotone, improving mildly Mood/Affect: Patient reports their mood is "anxious", affect is constricted. Improving mildly Suicidality/Homicidality: Patient denies having any homicidal ideation intent or plan. patient denies suicidal ideation currently Perceptions: Patient denies any visual hallucinations and denies any auditory hallucinations Though content/process: There is no evidence of any delusional thought content, fairly concrete. Rambling at times, focused on discharge Memory and concentration: AOX3, grossly intact for the purposes of this session. Judgment and insight: Chronically poor, improving mildly IMPRESSIONS: Major depressive disorder, recurrent, severe without psychotic features Alcohol use disorder, severe Methamphetamine abuse Nicotine dependence PLAN: -Patient is admitted under voluntary status to MHU for stabilization of psychiatric symptoms and safety. Patient signed adult voluntary form and medication consent and is placed in patient's chart. -Medications : Zoloft 100 mg daily for mood/anxiety, increase Seroquel 200 mg nightly for mood stabilization/sleep. decrease Librium today with plan to taper off over the weekend. he is refusing any anticraving medications for etoh use. Trazodone 100 mg nightly as needed for sleep - Nicotine gum & patch - CIWA protocol with Ativan, this can be discontinued on Saturday - vitamins replacement - on board for discharge planning. Encourage patient to participate in groups to work on coping skills. refusing rehab. hopeful for discharge Saturday
[2024-08-28] MEDS: ACETAMINOPHEN TAB 325 MG TAB PO PRN (13:32)
[2024-08-28] MEDS: QUEtiapine 200 MG TAB PO SCH (20:55)
--- NOTE | 2024-08-29 11:46 | P.PN ---
Progress Note - Text Progress Note Date: 08/29/24 Interval history: Patient was seen wandering the hallways and was directable and agreeable to s peak with personal lines underwriter. He presented with disorganized thought process that was fairly difficult to follow. He voiced several grandiose delusions about knowing about politics and what Marvin Kee is doing with the ICE agents. He also said he is friends with Eddi العراقي and spoke about how he wanted his haircut to be. He says his mood is "good ". He was agreeable with Seroquel being increased and Librium being tapered for alcohol withdrawal. He currently denied any symptoms of alcohol withdrawal. He reported sleeping fairly well last night. He denies other concerns. At this time patient denies any suicidal or homicidal ideations intent or plan. Denies any Auditory or visual hallucinations. Patient denies any side effects from the medications and has been compliant with meds. Mental status exam: General Appearance: Patient appears to be stated age is alert, directable, and cooperative. Behavior: No agitated behavior. Patient is calm and directable Speech: Patient's speech is hyperverbal and difficult to interrupt at times Mood/Affect: Mood is "good", affect is congruent and constricted. Suicidality/Homicidality: Patient denies having any suicidal or homicidal ideation intent or plan. Perceptions: Patient denies any auditory or visual hallucinations. Though content/process: Grandiose delusions, tangential Memory and concentration: AOX3, reduced attention Judgment and insight: improving mildly Assessment/Plan: Major depressive disorder, mixed, with psychotic features. R/o bipolar disorder. R/O psychotic disorder secondary to methamphetamine use Patient continues to meet criteria for inpatient psychiatric admission for symptom stabilization and safety. Patient will be maintained on current psychotropic medication regimen. Decrease Zoloft to 50 mg daily for depression. Increase Seroquel to 300 mg qHS for mood stabilization and psychosis. Tapering off Librium as tolerated. Continue CIWA with Ativan PRN. Monitor for medication compliance and for any psychotropic medication side effects. Will continue to monitor ongoing response to treatment. Encouraged participation in milieu.
[2024-08-29] MEDS: QUEtiapine 100 MG TAB PO SCH (20:55)
[2024-08-30] MEDS: SERTRALINE 50 MG TAB PO SCH (08:42)
--- NOTE | 2024-08-30 15:07 | P.PN ---
Progress Note - Text Progress Note Date: 08/30/24 Interval history: Patient was seen wandering the hallways and was directable and agreeable to s peak with medical underwriter. Patient is significantly more linear in thought process today although continues to be mildly tangential at times. He states that his mood is "all right ". He denies current alcohol withdrawal symptoms. He reports tolerating the taper in Librium well. He believes he is being discharged tomorrow but was informed by this provider that it is up to the provider tomorrow and it is also dependent on his clinical improvement. Reports sleeping better with the increased dose of Seroquel. He mentions that he has 400 mg of Seroquel at home. At this time patient denies any suicidal or homicidal ideations intent or plan. Denies any Auditory or visual hallucinations. Patient denies any side effects from the medications and has been compliant with meds. Mental status exam: General Appearance: Patient appears to be stated age is alert, directable, and cooperative. Behavior: No agitated behavior. Patient is calm and directable Speech: Patient's speech is hyperverbal and difficult to interrupt at times Mood/Affect: Mood is "all right", affect is congruent and constricted. Suicidality/Homicidality: Patient denies having any suicidal or homicidal ideation intent or plan. Perceptions: Patient denies any auditory or visual hallucinations. Though content/process: More linear. tangential Memory and concentration: AOX3, reduced attention Judgment and insight: improving mildly Assessment/Plan: Major depressive disorder, mixed, with psychotic features. R/o bipolar disorder. R/O psychotic disorder secondary to methamphetamine use Patient continues to meet criteria for inpatient psychiatric admission for symptom stabilization and safety. Patient will be maintained on current psychotropic medication regimen. Tapering off Librium as tolerated. Continue CIWA with Ativan PRN. Monitor for medication compliance and for any psychotropic medication side effects. Will continue to monitor ongoing response to treatment. Encouraged participation in milieu.
[2024-08-30] MEDS: NICOTINE GUM (POLACRILEX) 2 MG GUM BUCCAL PRN (16:27)
[2024-08-31 11:04] VITALS: BP 130/71; PULSE 83; RESP 16; TEMP 97.2
--- NOTE | 2024-08-31 11:26 | P.DS ---
Providers Date of admission: 08/25/24 03:25 Expected date of discharge: 08/31/24 Attending physician: Eugene Mantilla MD Consults: 08/25/24 03:28 Consult Physician Routine Consulting Provider: Eli Escalante Consult Reason/Comments: H & P Do you want consulting provider notified?: Already Contacted Primary care physician: Stated None - Discharge Diagnosis(es) (1) Major depressive disorder, recurrent, severe with psychotic features Current Visit: Yes Status: Acute Priority: High (2) Alcohol use disorder, severe, dependence Current Visit: Yes Status: Acute Priority: High (3) Methamphetamine abuse Current Visit: Yes Status: Acute Priority: High (4) Nicotine dependence Current Visit: Yes Status: Acute Priority: Low (5) Homeless Current Visit: Yes Status: Acute Priority: Medium Hospital Course: Admission HPI: Admission note was completed by technical proposal writer "Patient is a single, unemployed, [age]-year-old male, currently lives with his friends. Patient presented to the ED yesterday complaining of depression and suicidal ideations. Patient was evaluated by EPS and according to note "Software Implementation Project Manager assessed pt in ER RM 12 from [id number]. Pt brought self into ER seeking a mental health eval because "I have so much going on in my head". Patient BAT 0.132 upon arrival. Patient denies recent use of meth, cocaine or other substances but states he previously has used both meth and cocaine. Patient states he was recently in assisted for over 12 months related to multiple retail fraud charges, pt states he is not on probation. Patient states he is homeless and has been staying whereever he can. Patient reports anxiety "03/19" and depression "03/19". Patient previously open with [facility] but is not sure if his case is still open, pt has not been taking any medication [facility] prescribed stating the assisted did not give it to him. Patient reports SI with plan "to drink himself to or walk into traffic". Patient is not able to safety plan. Patient denies HI. Pt reports drinking at least one pint daily but denies seizure history. Upon assessment pt is disheveled, does not make eye contact and is malodorous. Pt states he has no support system, no access to guns or weapons. Pt states he wants help, "I just need to get back on meds, so I can think more clearly." Pt reports difficulty falling asleep and staying asleep." Patient was seen today laying in bed. He appeared to be disheveled in appearance longer hair, unshaven. He claims that he just got out of assisted about a month ago. Claims that he was in there for over a year for "resisting an obstruction". He was fairly evasive guarded. Poor historian. Claims that he has been drinking about 1/5 of liquor a day. Claims that he has been off his medications. Claims that his sleep has been poor, endorsing feeling stressed overwhelmed and hopeless. Endorsing depression and anxiety. Claims that he was having suicidal thoughts however claims that those have been on and off. Not currently having them. Denying any homicidal ideations denying any auditory or visual hallucinations. Claims that his appetite is fair. Also admitted to using methamphetamine and cigarettes. He was asking about pain medications." Hospital course: Upon admission to the unit patient was directable and agreeable to commence treatment and signed adult voluntary form. Patient was initially withdrawing from alcohol, depressed psychotic however with time and treatment patient got along well with other patients on the unit and followed unit protocol. Patient was compliant with the medications and denied any side effects throughout hospital course. Patient was started on Zoloft increased to 100 mg daily for mood/anxiety, Seroquel increased to 400 mg nightly for mood stabilization/sleep/psychosis, trazodone 100 mg nightly as needed for sleep, scheduled Librium tapered off for alcohol withdrawal, CIWA protocol with as needed Ativan. Patient spoke of his stressors however did not participate much in group/activity therapy and mainly kept to themselves during hospitalization. Patient was also seen by medical team for history and physical exam. Throughout the course of the hospitalization patient gradually improved with regards to mood, anxiety, psychosis, sleep and returned back to their baseline level of functioning. On the day of discharge patient denied any suicidal or homicidal ideations intent or plan denied any auditory or visual hallucinations. Patient endorsed wanting to live for his health and his family. The patient denied any access to guns or weapons. Patient denied any paranoia and did not endorse any delusions. Patient does have a significant history of substance abuse and was counseled on abstaining from all substances including alcohol and marijuana. Patient was offered however declined inpatient substance-abuse rehab. Patient was also counseled on the medications and need for regular compliance and was encouraged to follow-up with their outpatient appointment for mental health and also for primary care. Patient will be referred to nursing home upon discharge today versus going to stay with family. Mental status exam: General Appearance: Patient appears to be tall, has a brown, longer hair, stated age is alert, pleasant, and cooperative. Patient is in no acute distress and has improved hygiene and grooming Behavior: Patient is calmly seated without any agitated behavior. Speech: Patient's speech is fluent and nonpressured. Mood/Affect: Patient reports their mood is "better", affect is congruent Suicidality/Homicidality: Patient denies having any suicidal or homicidal ideation intent or plan. Perceptions: Patient denies any auditory or visual hallucinations. Though content/process: There is no evidence of any delusional thought content and thought process is linear and goal-directed. Memory and concentration: AOX3, grossly intact for the purposes of this session. Can spell "WORLD" backwards correctly. Judgment and insight: Chronically poor, however has improved with guarded prognosis Impression: Major depressive disorder severe with psychotic features Alcohol use disorder severe dependence Methamphetamine abuse Homeless Nicotine dependence Plan: -Continue with discharge today as patient has improved and stabilized psychiatrically and is not currently an imminent threat to themself and/or others. Patient will remain at chronically elevated risk for harm to self and/or others due to their impulsivity and substance abuse. -Continue medications: Seroquel 400 mg nightly for mood stabilization/sleep/psychosis, trazodone nightly as needed for sleep, Zoloft 100 mg daily for mood/anxiety. -Patient was counseled on the need for medication compliance and appropriate follow-up at mental health and also primary care for medical issues. Patient verbalized understanding and agreed. -Social work to help coordinate patients discharge today as patient will either be going to family versus going to the nursing home. also to ensure safe home environment that guns/weapons are either removed from the home or locked away. Social work also to arrange for patients follow up appointments with [facility] for psychiatric care along with follow up with primary care provider. -Patient counseled on abstaining from recreational drugs and marijuana and alcohol. Was informed/educated on the adverse effects on their physical and mental health. Patient verbally agreed and understood. Patient was offered substance abuse treatment however declined at this time. -Patient was instructed to return to the hospital or seek immediate medical care if their psychiatric or medical symptoms do worsen or reoccur. Allergies Allergy/AdvReac Type Severity Reaction Status Date / Time No Known Allergies Allergy Verified 08/24/24 21:39 Laboratory Results WBC 5.9 k/uL (3.8-10.6) 08/26/24 06:06 RBC 4.61 m/uL (4.30-5.90) 08/26/24 06:06 Hgb 14.2 gm/dL (13.0-17.5) 08/26/24 06:06 Hct 42.6 % (39.0-53.0) 08/26/24 06:06 MCV 92.5 fL (80.0-100.0) 08/26/24 06:06 MCH 30.9 pg (25.0-35.0) 08/26/24 06:06 MCHC 33.4 g/dL (31.0-37.0) 08/26/24 06:06 RDW 14.9 % (11.5-15.5) 08/26/24 06:06 Plt Count 164 k/uL (150-450) D 08/26/24 06:06 MPV 7.4 08/26/24 06:06 Neutrophils % 55 % 08/26/24 06:06 Lymphocytes % 34 % 08/26/24 06:06 Monocytes % 5 % 08/26/24 06:06 Eosinophils % 3 % 08/26/24 06:06 Basophils % 1 % 08/26/24 06:06 Neutrophils # 3.2 k/uL (1.3-7.7) 08/26/24 06:06 Lymphocytes # 2.0 k/uL (1.0-4.8) 08/26/24 06:06 Monocytes # 0.3 k/uL (0-1.0) 08/26/24 06:06 Eosinophils # 0.2 k/uL (0-0.7) 08/26/24 06:06 Basophils # 0.0 k/uL (0-0.2) 08/26/24 06:06 PT 10.8 sec (10.0-12.5) 08/26/24 23:34 INR 1.0 (<1.2) 08/26/24 23:34 APTT 23.6 sec (22.0-30.0) 08/26/24 23:34 Sodium 136 mmol/L (137-145) L 08/26/24 06:06 Potassium 3.4 mmol/L (3.5-5.1) L 08/26/24 06:06 Chloride 107 mmol/L (98-107) 08/26/24 06:06 Carbon Dioxide 25 mmol/L (22-30) 08/26/24 06:06 Anion Gap 4 mmol/L 08/26/24 06:06 BUN 5 mg/dL (9-20) L 08/26/24 06:06 Creatinine 0.60 mg/dL (0.66-1.25) L 08/26/24 06:06 Est GFR (CKD-EPI)AfAm >90 (>60 ml/min/1.73 sqM) 08/26/24 06:06 Est GFR (CKD-EPI)NonAf >90 (>60 ml/min/1.73 sqM) 08/26/24 06:06 Glucose 109 mg/dL (74-99) H 08/26/24 06:[address] Glu mg/dL 91 mg/dL 08/26/24 06:06 Hemoglobin A1c 4.8 % (<=6.0) 08/26/24 06:06 Calcium 8.7 mg/dL (8.4-10.2) 08/26/24 06:06 Total Bilirubin 0.7 mg/dL (0.2-1.3) 08/26/24 06:06 Conjugated Bilirubin 0.0 mg/dL (0.0-0.3) 08/26/24 06:06 Unconjugated Bilirubin 0.4 mg/dL (0.0-1.1) 08/26/24 06:06 Delta Bilirubin 0.3 mg/dL (0.0-0.2) H 08/26/24 06:06 AST 37 U/L (17-59) 08/26/24 06:06 ALT 38 U/L (4-49) 08/26/24 06:06 Alkaline Phosphatase 96 U/L (38-126) 08/26/24 06:06 Total Protein 6.0 g/dL (6.3-8.2) L 08/26/24 06:06 Albumin 3.4 g/dL (3.5-5.0) L 08/26/24 06:06 Triglycerides 126.00 mg/dL (0.00-149.00) 08/26/24 06:06 Cholesterol 155.00 mg/dL (0.00-200.00) 08/26/24 06:06 LDL Cholesterol, Calc 73.1 mg/dL (0.0-131.0) 08/26/24 06:06 VLDL Cholesterol, Calc 25.20 mg/dL (5.00-40.00) 08/26/24 06:06 HDL Cholesterol 56.70 mg/dL (40.00-60.00) 08/26/24 06:06 Cholesterol/HDL Ratio 2.73 Ratio 08/26/24 06:06 TSH Cancelled 08/26/24 06:06 SARS-CoV-2 (PCR) Not Detected (Not Detectd) 08/25/24 01:50 Vital Signs Temp 97.2 F L 08/31/24 08:00 Pulse 83 08/31/24 08:00 Resp 16 08/31/24 08:00 BP 130/71 08/31/24 08:00 Pulse Ox 99 08/31/24 08:00 FiO2 Intake & Output 08/30/24 08/31/24 08/31/24 18:59 06:59 18:59 Weight 120.4 kg Patient Condition at Discharge: Stable Plan - Discharge Summary Discharge Rx Participant: No New Discharge Prescriptions: New Multivitamins, Thera [Multivitamin (formulary)] 1 each PO DAILY tab Nicotine Gum (Polacrilex) [Nicorette] 2 mg BUCCAL Q2H PRN pieceofgum PRN Reason: Nicotine Cravings QUEtiapine FUMARATE [SEROquel] 400 mg PO HS 14 Days #14 tablet Sertraline [Zoloft] 50 mg PO DAILY 14 Days #14 tab Doxycycline 100 mg PO BID 7 Days #14 tab Continue Thiamine [Vitamin B-1] 100 mg PO DIRECTED Folic Acid 1 mg PO DIRECTED Ibuprofen [Motrin] 800 mg PO DIRECTED Apixaban [Eliquis] 5 mg PO DIRECTED 30 Days #30 tab Discontinued Doxycycline Hyclate 100 mg PO DIRECTED Discharge Medication List Folic Acid 1 mg PO DIRECTED 08/13/24 [History] Thiamine [Vitamin B-1] 100 mg PO DIRECTED 08/13/24 [History] Ibuprofen [Motrin] 800 mg PO DIRECTED 08/14/24 [History] Apixaban [Eliquis] 5 mg PO DIRECTED 30 Days #30 tab 08/31/24 [Rx] Doxycycline 100 mg PO BID 7 Days #14 tab 08/31/24 [Rx] Multivitamins, Thera [Multivitamin (formulary)] 1 each PO DAILY tab 08/31/24 [Rx] Nicotine Gum (Polacrilex) [Nicorette] 2 mg BUCCAL Q2H PRN pieceofgum 08/31/24 [Rx] QUEtiapine FUMARATE [SEROquel] 400 mg PO HS 14 Days #14 tablet 08/31/24 [Rx] Sertraline [Zoloft] 50 mg PO DAILY 14 Days #14 tab 08/31/24 [Rx] Follow up Appointment(s)/Referral(s): [facility] [Outside] - 09/02/24 12:30 pm (Intake @ [facility] 09/02/24 @ 1230pm w Enedelia) None,Stated [Primary Care Provider] - 1-2 days Activity/Diet/Wound Care/Special Instructions: [facility] Discharge Info Avoid the use of street drugs and alcohol. Take all medications as prescribed. When you are in need of refills on your medications, please contact your outpatient medical provider and/or outpatient psychiatrist. Please go to your scheduled outpatient appointments for aftercare treatment. If symptoms return or become worse, call the crisis line at or and/or visit the nearest emergency room for assistance. National Suicide and Crisis Lifeline - call or text 988 Discharge Disposition: OTHER INSTITUTION NOT DEFINED
== END 2024-08-31 14:55 | disposition other institution (70) | DRG 750 ==
LOC: EC 21:23 → 3MHU 08-25 03:25
PROVIDERS: ADMIT Psychiatry & Neurology Psychiatry; ATTEND Psychiatry & Neurology Psychiatry
DX: F33.3 Major depressive disorder, recurrent, severe with psychotic symptoms (principal); F15.10 Other stimulant abuse, uncomplicated; F14.21 Cocaine dependence, in remission; F10.239 Alcohol dependence with withdrawal, unspecified; F17.290 Nicotine dependence, other tobacco product, uncomplicated; D68.51 Activated protein C resistance; F40.240 Claustrophobia; E07.9 Disorder of thyroid, unspecified; R45.851 Suicidal ideations; E87.6 Hypokalemia; F41.9 Anxiety disorder, unspecified; M54.50 Low back pain, unspecified; G89.29 Other chronic pain; G47.00 Insomnia, unspecified; Z28.310 Unvaccinated for COVID-19; Z11.52 Encounter for screening for COVID-19; Z28.21 Immunization not carried out because of patient refusal; I25.2 Old myocardial infarction; Z59.00 Homelessness unspecified; Z79.01 Long term (current) use of anticoagulants; Z79.899 Other long term (current) drug therapy; Z86.718 Personal history of other venous thrombosis and embolism; Z79.1 Long term (current) use of non-steroidal anti-inflammatories (NSAID); Z56.0 Unemployment, unspecified
CPT/HCPCS: 80053; 80061; 82075; 82248; 83036; 84443; 85025; 85610; 85730; 87635; 99285

== ENCOUNTER 2024-09-09 22:36 | Emergency (ER) | payer OTHER ==
--- NOTE | 2024-09-09 23:08 | ED ---
General Adult HPI - General Chief complaint: Psychiatric Symptoms Stated complaint: Mental Health Time Seen by Provider: 09/09/24 22:43 Source: patient Mode of arrival: ambulatory Limitations: no limitations - History of Present Illness Initial comments: Patient is a 39-year-old male with a past medical history of major depression disorder recent admission for acute psychosis and alcohol withdrawal, polysubstance abuse presenting today for right knee pain. Patient states that pain has been going on "for forever". He states he has tried Tylenol and ibuprofen without relief of his pain. Denies any recent falls or injury. Denies any new numbness or weakness. Denies fevers or chills. Denies shortness of breath or chest pain. Patient also stated in triage that he was here for mental health evaluation. When asked patient is very tangential with his speech, stating that he did shrooms and now he is hallucinating. Is nonspecific with his hallucinations. He denies any homicidal or suicidal thoughts. When asked about being evaluated for mental health complaints patient states "if they want to see me". - Related Data Home Medications Medication Instructions Recorded Confirmed Folic Acid 1 mg PO DIRECTED 08/13/24 08/17/24 Thiamine [Vitamin B-1] 100 mg PO DIRECTED 08/13/24 08/17/24 Ibuprofen [Motrin] 800 mg PO DIRECTED 08/14/24 08/25/24 Previous Rx's Medication Instructions Recorded Apixaban [Eliquis] 5 mg PO DIRECTED 30 Days #30 tab 08/31/24 Doxycycline 100 mg PO BID 7 Days #14 tab 08/31/24 Multivitamins, Thera [Multivitamin 1 each PO DAILY tab 08/31/24 (formulary)] Nicotine Gum (Polacrilex) 2 mg BUCCAL Q2H PRN pieceofgum 08/31/24 [Nicorette] QUEtiapine FUMARATE [SEROquel] 400 mg PO HS 14 Days #14 tablet 08/31/24 Sertraline [Zoloft] 50 mg PO DAILY 14 Days #14 tab 08/31/24 Allergies Allergy/AdvReac Type Severity Reaction Status Date / Time No Known Allergies Allergy Verified 09/09/24 22:40 Review of Systems ROS Statement: Those systems with pertinent positive or pertinent negative responses have been documented in the HPI. ROS Other: All systems not noted in ROS Statement are negative. Past Medical History Past Medical History: Deep Vein Thrombosis (DVT), Thyroid Disorder Additional Past Medical History / Comment(s): ETOH abuse, past withdrawls with tremors/nausea/seizure, chronic low back pain, recent R knee/leg pain, DVT R leg, Catogory 5 blood disorder. Last Myocardial Infarction Date:: 07/2024 History of Any Multi-Drug Resistant Organisms: MRSA Date of last positivie culture/infection: august 2024 MDRO Source:: right side of face Past Surgical History: Cholecystectomy, Orthopedic Surgery Additional Past Surgical History / Comment(s): right knee tendon surgery Past Anesthesia/Blood Transfusion Reactions: Motion Sickness Additional Past Anesthesia/Blood Transfusion Reaction / Comment(s): Clausterphobia. Past Psychological History: Anxiety, Bipolar, Depression Smoking Status: Current every day smoker Past Alcohol Use History: Daily, Heavy Past Drug Use History: Cocaine, Marijuana, Methamphetamine - Past Family History Father History Unknown: Yes Family Medical History: CVA/TIA Additional Family Medical History / Comment(s): Unable to obtain family history secondary altered mentation Mother Family Medical History: Congestive Heart Failure (CHF) General Exam - General Exam Comments Initial Comments: PE: CONSTITUTIONAL: [no apparent distress, disheveled, nontoxic not ill-appearing] SKIN: [warm, dry, no jaundice, hives or petechiae, no bruising or signs of trauma to the right knee] EYES:[ pupils are equally round, extraocular movements intact without nystagmus, clear conjunctiva, non-icteric sclera] HENT: [normocephalic, atraumatic, moist mucus membranes, oropharynx clear without exudates] NECK: , [Full range of motion, normal appearance] PULMONARY: [clear to auscultation without wheezes, rhonchi, or rales, normal excursion, no accessory muscle use and no stridor] CARDIOVASCULAR:[ regular rate, rhythm, normal S1 and S2. No appreciated murmurs, rubs or gallops. Strong radial pulses with intact distal perfusion. No lower extremity edema] MUSCULOSKELETAL: [Extremities have no gross deformity, no edema, redness, or swelling. No calf swelling patient endorses pain with flexion of the right knee, no bony tenderness to palpation, no fluctuance, no warmth, no gross deformity, right lower extremity is neurovascularly intact] NEUROLOGIC: [_a/o x 3, GCS 15, normal mentation and speech. Moves all extremities x 4 without motor or sensory deficit, with limited flexion of the right knee as noted above] PSYCHIATRIC:[ calm mood, cooperative, flat affect, makes poor eye contact, mumbling, rambling and tangential speech, thought process is somewhat tangential, does not appear to be responding internal stimuli, denies homicidal or suicidal ideation] Limitations: no limitations Course Vital Signs 09/09/24 09/10/24 09/10/24 22:38 04:09 06:29 Temperature 97.5 F L 98.0 F Pulse Rate 107 H 79 94 Respiratory 20 18 18 Rate Blood Pressure 149/79 127/79 147/74 O2 Sat by Pulse 98 100 97 Oximetry Medical Decision Making - Medical Decision Making Was pt. sent in by a medical professional or institution (, PA, DIRECTOR OF GIFT PLANNING, urgent care, hospital, or halfway...) When possible be specific @ -No Did you speak to anyone other than the patient for history (EMS, parent, family, police, friend...)? What history was obtained from this source @ -No Did you review nursing and triage notes (agree or disagree)? Why? @ -I reviewed nursing and triage notes- of note, when asked about "mental health" complaint, pt has no specific complaint, when asked about this pt states "if they ([facility]) wants to see me". Were old charts reviewed (outside hosp., previous admission, EMS record, old EKG, old radiological studies, urgent care reports/EKG's, halfway records)? Report findings @ -Medical records reviewed- Reviewed recent discharge summary from recent admission 08/30/24, Patient was discharged after being treated for major depressive disorder, with psychotic features, alcohol use disorder methamphetamine abuse h discharged with Seroquel and Zoloft Differential Diagnosis (chest pain, altered mental status, abdominal pain women, abdominal pain men, vaginal bleeding, weakness, fever, dyspnea, syncope, headache, dizziness, GI bleed, back pain, seizure, CVA, palpatations, mental health, musculoskeletal)? @Differential Mental Health Depression, anxiety, bipolar, psychosis, schizophrenia, borderline personality, situational depression, adjustment disorder, behavioral disorder, brain tumor, malingering, substance abuse, encephalopathy, medication reaction, dementia, hypothyroidism, degenerative neurologic disorder, lupus.... This is not meant to be all-inclusive list Differential Musculoskeletal Muscular strain, contusion, ligament sprain, fracture, arthritis, septic arthritis, bursitis, cellulitis, muscle spasm, nerve compression, DVT, arterial occlusion, herpes zoster, electrolyte abnormality, tumor.... This is not meant to be in all inclusive list EKG interpreted by me (3pts min.). @ -As above X-rays interpreted by me (1pt min.). @ -None done CT interpreted by me (1pt min.). @ -None done U/S interpreted by me (1pt. min.). @ -None done What testing was considered but not performed or refused? (CT, X-rays, U/S, labs)? Why? XR right knee was considered however pt states pain ongoing for "a long time" without new injury, knee appears atraumatic What meds were considered but not given or refused? Why? @ -None Did you discuss the management of the patient with other professionals (professionals i.e. , PA, DIRECTOR OF GIFT PLANNING, lab, RT, psych nurse, social worker delinquency prevention, frame table operator helper, teacher, textile technical officer, assistant case manager)? Give summary @ -No Was smoking cessation discussed for >3mins.? @ -No Was critical care preformed (if so, how long)? @ -No Were there social determinants of health that impacted care today? How? (Homelessness, low income, unemployed, alcoholism, drug addiction, transportation, low edu. Level, literacy, decrease access to med. care, [place] [facility], rehab)? @Homelessness, polysubstance abuse Was there de-escalation of care discussed even if they declined (Discuss DNR or withdrawal of care, Hospice)? @ -No What co-morbidities impacted this encounter? (DM, HTN, Smoking, COPD, CAD, Cancer, CVA, ARF, Chemo, Hep., AIDS, mental health diagnosis, sleep apnea, morbid obesity)? @Major depressive disorder, alcoholism Was patient admitted / discharged? Hospital course, mention meds given and route, prescriptions, significant lab abnormalities, going to OR and other pertinent info. @Discharge-Patient is a 39-year-old gentleman past medical history of alcohol use disorder, polysubstance abuse, major depressive disorder presenting today for right knee pain and "mental health evaluation". On my assessment patient is resting comfortably no acute distress. He is mildly tachycardic on arrival which I suspect is secondary to using "shrooms" which patient endorsed to RN. He makes poor eye contact, his tangential and mumbling speech. Does not appear to be responding internal stimuli. He is calm and cooperative. Denies HI/SI. Discussed with patient plan for symptomatic treatment of right knee pain as well as EPS evaluation once clinically sober . Patient agreeable plan. Patient sleeping comfortably on reassessment. Denies additional needs. Informed the pt that EPS is not available overnight. He denies SI/HI and is behaving appropriately. He will follow up outpatient instead. He remained calm, cooperative and pleasant throughout time in ED. Was discharged in good condition for outpatient follow up. Undiagnosed new problem with uncertain prognosis? @ -No Drug Therapy requiring intensive monitoring for toxicity (Heparin, Nitro, Insulin, Cardizem)? @ -No Were any procedures done? @ -No Diagnosis/symptom? chronic knee pain Acute, or Chronic, or Acute on Chronic? @chronic Uncomplicated (without systemic symptoms) or Complicated (systemic symptoms)? @ -Default Side effects of treatment? @ -No Exacerbation, Progression, or Severe Exacerbation? @ -No Poses a threat to life or bodily function? How? (Chest pain, [place], [place], pneumonia, PE, COPD, DKA, ARF, appy, cholecystitis, CVA, Diverticulitis, Homicidal, Suicidal, threat to staff... and all critical care pts) @ -No Disposition Clinical Impression: Substance abuse, Chronic pain of right knee Disposition: HOME SELF-CARE Condition: Good Instructions (If sedation given, give patient instructions): Knee Pain (ED) Additional Instructions: Every disease is a spectrum and a small chance still exists that a serious condition could develop, for this reason, please monitor yourself closely for new, changing or worsening symptoms, symptoms that do not improve in 48 hours, fever, inability to tolerate/keep down fluids or your medications, inability to follow up with outpatient providers as instructed and should you experience these symptoms or should you have any further concerns for your wellbeing please return to the ED or call 911 immediately. Your pain can be treated with ibuprofen and acetaminophen. You can take up to 400-600 mg of ibuprofen (Advil, Motrin) 3 times daily (every 8 hours) but can also use lower doses if this relieves your pain. Some people prefer naproxen (Aleve, Naprosyn) which can be taken in doses of 500 mg up to twice a day. Do not take both of these medicines together, and do not combine either with ketorolac (Toradol), meloxicam (Mobic), or indomethacin (Tivorbex). Some people can develop stomach discomfort with higher doses of either ibuprofen or naproxen, if this develops decrease your dose or stop taking it. If you need to take this dose daily for more than a week, please schedule an appointment for re-evaluation with your PCP. Please take these medications with food. You can take up to 1000 mg of acetaminophen (Tylenol) every 6 hours. Be careful as this is included in some medicines like Nyquil, Dexter, Percocet, Vicodin, STANBACK, Goody's Powders, and Excedrin. You can also use lidocaine patches for topical pain. You can purchase 4% patches over the counter at most drug stores. These can be helpful for pain from your muscles or bones. PLEASE call your primary care physician as soon as possible to arrange / discuss plan for followup appointment. Appointment in the next 1-3 days is strongly encouraged if possible. PLEASE let us know here before you leave if there is anything further we can do to be of any assistance. Take care and feel Better! Is patient prescribed a controlled substance at d/c from ED?: No Referrals: None,Stated [Primary Care Provider] - 1-2 days Forms: Outpatient Counseling
[2024-09-09] MEDS: ACETAMINOPHEN TAB 500 MG TAB PO STA (23:45)
[2024-09-09] MEDS: DICLOFENAC SODIUM GEL 100 GM TUBE TOPICAL STA (23:45)
[2024-09-09] MEDS: KETOROLAC 15 MG/ML 1 ML VIAL IM STA (23:46)
[2024-09-10 04:10] VITALS: RESP 18
[2024-09-10 06:39] VITALS: BP 147/74; PULSE 94; TEMP 98
== END 2024-09-10 06:38 | disposition home or self-care (01) ==
LOC: EC 22:36
DX: F19.20 Other psychoactive substance dependence, uncomplicated (principal); G89.29 Other chronic pain; F32.A Depression, unspecified; Z86.59 Personal history of other mental and behavioral disorders; F17.200 Nicotine dependence, unspecified, uncomplicated
CPT/HCPCS: 82075; 99285; 96372; J1885

== ENCOUNTER 2024-09-19 01:17 | Emergency (ER) | payer OTHER ==
[2024-09-19 01:32] VITALS: RESP 18
[2024-09-19] MEDS: LORazepam 1 MG TAB PO STA (02:26)
[2024-09-19] MEDS: KETOROLAC 15 MG/ML 1 ML VIAL IM STA (02:27)
--- NOTE | 2024-09-19 03:20 | ED ---
General Adult HPI - General Chief complaint: Back Pain/Injury Stated complaint: pain Time Seen by Provider: 09/19/24 02:14 Source: patient Mode of arrival: ambulatory - History of Present Illness Initial comments: This patient is a 39-year-old man who presents evaluation for chronic back and knee pain. Patient states that he usually has some relief with medications at home but is not today. He did not have a new injury. He is not having fever. Patient not having any weakness or numbness of the extremities. No change in bladder or bowel function. Onset/Timin -: days(s) Location: back, left Severity scale (1-10): 8 Quality: aching Consistency: constant Improves with: medication Worsens with: movement Associated Symptoms: denies other symptoms Treatments Prior to Arrival: NSAID - Related Data Home Medications Medication Instructions Recorded Confirmed Folic Acid 1 mg PO DIRECTED 08/13/24 08/17/24 Thiamine [Vitamin B-1] 100 mg PO DIRECTED 08/13/24 08/17/24 Ibuprofen [Motrin] 800 mg PO DIRECTED 08/14/24 08/25/24 Previous Rx's Medication Instructions Recorded Apixaban [Eliquis] 5 mg PO DIRECTED 30 Days #30 tab 08/31/24 Doxycycline 100 mg PO BID 7 Days #14 tab 08/31/24 Multivitamins, Thera [Multivitamin 1 each PO DAILY tab 08/31/24 (formulary)] Nicotine Gum (Polacrilex) 2 mg BUCCAL Q2H PRN pieceofgum 08/31/24 [Nicorette] QUEtiapine FUMARATE [SEROquel] 400 mg PO HS 14 Days #14 tablet 08/31/24 Sertraline [Zoloft] 50 mg PO DAILY 14 Days #14 tab 08/31/24 Allergies Allergy/AdvReac Type Severity Reaction Status Date / Time No Known Allergies Allergy Verified 10/10/24 00:01 Review of Systems ROS Statement: Those systems with pertinent positive or pertinent negative responses have been documented in the HPI. ROS Other: All systems not noted in ROS Statement are negative. Constitutional: Denies: fever, chills, weakness Cardiovascular: Denies: chest pain, palpitations Musculoskeletal: Reports: as per HPI, back pain, arthralgia Skin: Denies: rash Neurological: Denies: weakness, numbness, paresthesias, abnormal gait Past Medical History Past Medical History: Deep Vein Thrombosis (DVT), Thyroid Disorder Additional Past Medical History / Comment(s): ETOH abuse, past withdrawls with tremors/nausea/seizure, chronic low back pain, recent R knee/leg pain, DVT R leg, Catogory 5 blood disorder. Last Myocardial Infarction Date:: 07/2024 History of Any Multi-Drug Resistant Organisms: MRSA Date of last positivie culture/infection: august 2024 MDRO Source:: right side of face Past Surgical History: Cholecystectomy, Orthopedic Surgery Additional Past Surgical History / Comment(s): right knee tendon surgery Past Anesthesia/Blood Transfusion Reactions: Motion Sickness Additional Past Anesthesia/Blood Transfusion Reaction / Comment(s): Clausterphobia. Past Psychological History: Anxiety, Bipolar, Depression Smoking Status: Current every day smoker Past Alcohol Use History: Daily, Heavy Past Drug Use History: Cocaine, Marijuana, Methamphetamine - Past Family History Father History Unknown: Yes Family Medical History: CVA/TIA Additional Family Medical History / Comment(s): Unable to obtain family history secondary altered mentation Mother Family Medical History: Congestive Heart Failure (CHF) General Exam General appearance: alert, in no apparent distress Head exam: Present: atraumatic, normocephalic Eye exam: Present: normal appearance Neck exam: Present: normal inspection, full ROM Respiratory exam: Present: normal lung sounds bilaterally. Absent: respiratory distress, wheezes, rales, rhonchi, stridor Cardiovascular Exam: Present: regular rate, normal rhythm, normal heart sounds. Absent: systolic murmur, diastolic murmur, rubs, gallop Extremities exam: Present: normal inspection, full ROM, normal capillary refill. Absent: tenderness, pedal edema, calf tenderness Back exam: Present: normal inspection, full ROM, paraspinal tenderness. Absent: CVA tenderness (R), CVA tenderness (L), vertebral tenderness Neurological exam: Present: reflexes normal. Absent: motor sensory deficit Skin exam: Present: warm, dry, intact, normal color. Absent: rash Course Vital Signs 09/19/24 09/19/24 01:29 03:25 Temperature 97.2 F L 98.6 F Pulse Rate 111 H 88 Respiratory 18 18 Rate Blood Pressure 154/98 116/75 O2 Sat by Pulse 98 97 Oximetry Medical Decision Making - Medical Decision Making Was pt. sent in by a medical professional or institution (JOANA Duff, SUBMARINE ELEMENT COORDINATOR, urgent care, hospital, or long-term...) When possible be specific @ -[No] Did you speak to anyone other than the patient for history (EMS, parent, family, police, friend...)? What history was obtained from this source @ -[No] Did you review nursing and triage notes (agree or disagree)? Why? @ -[I reviewed and agree with nursing and triage notes] Were old charts reviewed (outside hosp., previous admission, EMS record, old EKG, old radiological studies, urgent care reports/EKG's, long-term records)? Report findings @ -[No old charts were reviewed] Differential Diagnosis (chest pain, altered mental status, abdominal pain women, abdominal pain men, vaginal bleeding, weakness, fever, dyspnea, syncope, headache, dizziness, GI bleed, back pain, seizure, CVA, palpatations, mental health, musculoskeletal)? @ -Differential Musculoskeletal Muscular strain, contusion, ligament sprain, fracture, arthritis, septic arthritis, bursitis, cellulitis, muscle spasm, nerve compression, DVT, arterial occlusion, herpes zoster, electrolyte abnormality, tumor.... This is not meant to be in all inclusive list EKG interpreted by me (3pts min.). @ -[As above] X-rays interpreted by me (1pt min.). @ -[None done] CT interpreted by me (1pt min.). @ -[None done] U/S interpreted by me (1pt. min.). @ -[None done] What testing was considered but not performed or refused? (CT, X-rays, U/S, labs)? Why? @ -[None] What meds were considered but not given or refused? Why? @ -[None] Did you discuss the management of the patient with other professionals (professionals i.e. JOANA Duff, SUBMARINE ELEMENT COORDINATOR, lab, RT, psych nurse, elementary school social worker, marketing services coordinator, teacher, radio division officer, case management social worker)? Give summary @ -[No] Was smoking cessation discussed for >3mins.? @ -[No] Was critical care preformed (if so, how long)? @ -[No] Were there social determinants of health that impacted care today? How? (Homelessness, low income, unemployed, alcoholism, drug addiction, transportation, low edu. Level, literacy, decrease access to med. care, [facility], rehab)? @ -[No] Was there de-escalation of care discussed even if they declined (Discuss DNR or withdrawal of care, Hospice)? DNR status @ -[No] What co-morbidities impacted this encounter? (DM, HTN, Smoking, COPD, CAD, Cancer, CVA, ARF, Chemo, Hep., AIDS, mental health diagnosis, sleep apnea, morbid obesity)? @ -[None] Was patient admitted / discharged? Hospital course, mention meds given and route, prescriptions, significant lab abnormalities, going to OR and other pertinent info. @ -[This patient is 39-year-old man presenting with flareup of his chronic back and knee pain. The patient not having any red flag symptoms associated with the back pain. He did have relief of symptoms with the medication here and would like to go home. Discussed further care and follow-up as well as return parameters Undiagnosed new problem with uncertain prognosis? @ -[No] Drug Therapy requiring intensive monitoring for toxicity (Heparin, Nitro, Insulin, Cardizem)? @ -[No] Were any procedures done? @ -[No] Diagnosis/symptom? @ -[Acute exacerbation of chronic back pain Acute, or Chronic, or Acute on Chronic? @ -[Acute on chronic Uncomplicated (without systemic symptoms) or Complicated (systemic symptoms)? @ -[default] Side effects of treatment? @ -[No] Exacerbation, Progression, or Severe Exacerbation? @ -[Yes Poses a threat to life or bodily function? How? (Chest pain, [place], [place], pneumonia, PE, COPD, DKA, ARF, appy, cholecystitis, CVA, Diverticulitis, Homicidal, [place] icidal, threat to staff... and all critical care pts) @ -[No] All treatments are based on ideal body weight as in ED triage Disposition Clinical Impression: Chronic back pain Disposition: HOME SELF-CARE Condition: Good Instructions (If sedation given, give patient instructions): Chronic Back Pain (DC) Is patient prescribed a controlled substance at d/c from ED?: No Referrals: None,Stated [Primary Care Provider] - 1-2 days
[2024-09-19 03:34] VITALS: BP 116/75; PULSE 88; TEMP 98.6
== END 2024-09-19 03:50 | disposition home or self-care (01) ==
LOC: EC 01:17
DX: G89.29 Other chronic pain (principal); M54.9 Dorsalgia, unspecified; F17.200 Nicotine dependence, unspecified, uncomplicated
CPT/HCPCS: 99283; 96372; J1885

== ENCOUNTER 2024-09-22 01:17 | Emergency (ER) | payer OTHER ==
[2024-09-22 01:24] VITALS: RESP 18; TEMP 97.6
--- NOTE | 2024-09-22 01:55 | ED ---
Alcohol HPI - General Chief Complaint: Psychiatric Symptoms Stated Complaint: Mental health Time Seen by Provider: 09/22/24 01:19 Source: patient, RN notes reviewed, old records reviewed Mode of arrival: ambulatory - History of Present Illness Initial Comments: This is a 39-year-old male well-known to this ER coming in for alcohol intoxication. 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) Previous Visits for Alcohol Intoxication?: Yes Recent Trauma: Yes Associated Symptoms: denies other symptoms Treatments Prior to Arrival: none Chronic Alcohol Use: Yes - Related Data Home Medications Medication Instructions Recorded Confirmed Folic Acid 1 mg PO DIRECTED 08/13/24 08/17/24 Thiamine [Vitamin B-1] 100 mg PO DIRECTED 08/13/24 08/17/24 Ibuprofen [Motrin] 800 mg PO DIRECTED 08/14/24 08/25/24 Previous Rx's Medication Instructions Recorded Apixaban [Eliquis] 5 mg PO DIRECTED 30 Days #30 tab 08/31/24 Doxycycline 100 mg PO BID 7 Days #14 tab 08/31/24 Multivitamins, Thera [Multivitamin 1 each PO DAILY tab 08/31/24 (formulary)] Nicotine Gum (Polacrilex) 2 mg BUCCAL Q2H PRN pieceofgum 08/31/24 [Nicorette] QUEtiapine FUMARATE [SEROquel] 400 mg PO HS 14 Days #14 tablet 08/31/24 Sertraline [Zoloft] 50 mg PO DAILY 14 Days #14 tab 08/31/24 Allergies Allergy/AdvReac Type Severity Reaction Status Date / Time No Known Allergies Allergy Verified 09/22/24 23:25 Review of Systems ROS Statement: Those systems with pertinent positive or pertinent negative responses have been documented in the HPI. ROS Other: All systems not noted in ROS Statement are negative. Past Medical History Past Medical History: Deep Vein Thrombosis (DVT), Thyroid Disorder Additional Past Medical History / Comment(s): ETOH abuse, past withdrawls with tremors/nausea/seizure, chronic low back pain, recent R knee/leg pain, DVT R leg, Catogory 5 blood disorder. Last Myocardial Infarction Date:: 07/2024 History of Any Multi-Drug Resistant Organisms: MRSA Date of last positivie culture/infection: august 2024 MDRO Source:: right side of face Past Surgical History: Cholecystectomy, Orthopedic Surgery Additional Past Surgical History / Comment(s): right knee tendon surgery Past Anesthesia/Blood Transfusion Reactions: Motion Sickness Additional Past Anesthesia/Blood Transfusion Reaction / Comment(s): Clausterphobia. Past Psychological History: Anxiety, Bipolar, Depression Smoking Status: Current every day smoker Past Alcohol Use History: Daily, Heavy Past Drug Use History: Cocaine, Marijuana, Methamphetamine - Past Family History Father History Unknown: Yes Family Medical History: CVA/TIA Additional Family Medical History / Comment(s): Unable to obtain family history secondary altered mentation Mother Family Medical History: Congestive Heart Failure (CHF) General Exam General appearance: appears intoxicated Head exam: Present: atraumatic, normocephalic, normal inspection Eye exam: Present: normal appearance, PERRL, EOMI. Absent: scleral icterus, conjunctival injection, periorbital swelling ENT exam: Present: normal exam, mucous membranes moist Neck exam: Present: normal inspection. Absent: tenderness, meningismus, lymphadenopathy Respiratory exam: Present: normal lung sounds bilaterally. Absent: respiratory distress, wheezes, rales, rhonchi, stridor Cardiovascular Exam: Present: regular rate, normal rhythm, normal heart sounds. Absent: systolic murmur, diastolic murmur, rubs, gallop, clicks GI/Abdominal exam: Present: soft, normal bowel sounds. Absent: distended, tenderness, guarding, rebound, rigid Extremities exam: Present: normal inspection, full ROM, normal capillary refill. Absent: tenderness, pedal edema, joint swelling, calf tenderness Back exam: Present: normal inspection Neurological exam: Present: alert, oriented X3, CN II-XII intact Psychiatric exam: Present: normal affect, normal mood Skin exam: Present: warm, dry, intact, normal color. Absent: rash Course Vital Signs 09/22/24 09/22/24 01:19 06:32 Temperature 97.6 F 97.6 F Pulse Rate 101 H 105 H Respiratory 18 18 Rate Blood Pressure 117/84 145/81 O2 Sat by Pulse 99 98 Oximetry - Reevaluation(s) Reevaluation #1: Medical records reviewed Reevaluation #2: Patient continues to improve here in the ER Reevaluation #3: Patient informed of results and questions answered Reevaluation #4: Was pt. sent in by a medical professional or institution (JOANA Duff, [employer]IONICS SYSTEM ENGINEER, urgent care, hospital, or prison...) When possible be specific @ -no Did you speak to anyone other than the patient for history (EMS, parent, family, police, friend...)? What history was obtained from this source @ -no Did you review nursing and triage notes (agree or disagree)? Why? @ -agree Are old charts reviewed (outside hosp., previous admission, EMS record, old EKG, old radiological studies, urgent care reports/EKG's, prison records)? Report findings @ -yes Differential Diagnosis (chest pain, altered mental status, abdominal pain women, abdominal pain men, vaginal bleeding, weakness, fever, dyspnea, syncope, headache, dizziness, GI bleed, back pain, seizure, CVA, palpatations, mental health, musculoskeletal)? @ -prior EKG interpreted by me (3pts min.). @ -no X-rays interpreted by me (1pt min.). @ -no CT interpreted by me (1pt min.). @ -no U/S interpreted by me (1pt. min.). @ -no What testing was considered but not performed or refused? (CT, X-rays, U/S, labs)? Why? @ -none What meds were considered but not given or refused? Why? @ -none Did you discuss the management of the patient with other professionals (professionals i.e. JOANA Dfuf, AVIONICS SYSTEM ENGINEER, lab, RT, psych nurse, social media job titles, lapidarist, teacher, asset protection officer, telephonic nurse case manager)? Give summary @ -no Was smoking cessation discussed for >3mins.? @ -no Was critical care preformed (if so, how long)? @ -no Were there social determinants of health that impacted care today? How? (Homelessness, low income, unemployed, alcoholism, drug addiction, transportation, low edu. Level, literacy, decrease access to med. care, custodial, rehab)? @ -none Was there de-escalation of care discussed even if they declined (Discuss DNR or withdrawal of care, Hospice)? DNR status @ -no What co-morbidities impacted this encounter? (DM, HTN, Smoking, COPD, CAD, Cancer, CVA, ARF, Chemo, Hep., AIDS, mental health diagnosis, sleep apnea, morbid obesity)? @ -none Was patient admitted / discharged? Hospital course, mention meds given and route, prescriptions, significant lab abnormalities, going to OR and other pertinent info. @ -39 male to ER for evaluation of acute alcohol intoxication. Patient is allowed to return to cognitive baseline and can be discharged home Undiagnosed new problem with uncertain prognosis? @ -no Drug Therapy requiring intensive monitoring for toxicity (Heparin, Nitro, Insulin, Cardizem)? @ -no Were any procedures done? @ -no Diagnosis/symptom? @ -Alcohol intoxication Acute, or Chronic, or Acute on Chronic? @ -Acute Uncomplicated (without systemic symptoms) or Complicated (systemic symptoms)? @ -Complicated Side effects of treatment? @ -no Exacerbation, Progression, or Severe Exacerbation? @ -exacerbation Poses a threat to life or bodily function? How? (Chest pain, [place], [place], pneumonia, PE, COPD, DKA, ARF, appy, cholecystitis, CVA, Diverticulitis, Homicidal, S uicidal, threat to staff... and all critical care pts) @ -yes with significant intoxication Reevaluation #5: Differential Altered Mental Status: Hypoglycemia, DKA, hypercapnia, ETOH, overdose, CO poisoning, trauma, myxedema coma, HTN encephalopathy, infection, encephalitis, psychosis, intercranial hemorrhage, hepatic encephalopathy, meningitis, CVA, this is not meant to be an all-inclusive list Medical Decision Making - Medical Decision Making 39 male to ER for evaluation of acute alcohol intoxication. Patient is allowed to return to cognitive baseline and can be discharged home Disposition Clinical Impression: Alcohol use disorder, Encounter for psychiatric assessment, Alcohol dependence Disposition: HOME SELF-CARE Condition: Fair Instructions (If sedation given, give patient instructions): Abuse of Alcohol (ED) Is patient prescribed a controlled substance at d/c from ED?: No Referrals: Emmanuel Hou MD [Primary Care Provider] - 1-2 days
[2024-09-22 06:34] VITALS: BP 145/81; PULSE 105
== END 2024-09-22 06:34 | disposition home or self-care (01) ==
LOC: EC 01:17
DX: Z04.6 Encounter for general psychiatric examination, requested by authority (principal); F10.229 Alcohol dependence with intoxication, unspecified; F17.200 Nicotine dependence, unspecified, uncomplicated
CPT/HCPCS: 82075; 99284

== ENCOUNTER 2024-09-22 23:21 | Emergency (ER) | payer OTHER ==
--- NOTE | 2024-09-22 23:27 | ED ---
Alcohol HPI - General Chief Complaint: Alcohol Stated Complaint: Pain Time Seen by Provider: 09/22/24 23:27 Source: patient, RN notes reviewed, old records reviewed Mode of arrival: ambulatory Limitations: no limitations - History of Present Illness Initial Comments: This is a 39 male to ER patient is here for alcohol intoxication, patient has been here fairly often recently for public intoxication sometimes does complain of some depression is known homeless in the area MD Complaint: alcohol intoxication Last Drink: just [employer] Previous Visits for Alcohol Intoxication?: Yes Recent Trauma: No Associated Symptoms: denies other symptoms Treatments Prior to Arrival: none Chronic Alcohol Use: Yes - Related Data Home Medications Medication Instructions Recorded Confirmed Folic Acid 1 mg PO DIRECTED 08/13/24 08/17/24 Thiamine [Vitamin B-1] 100 mg PO DIRECTED 08/13/24 08/17/24 Ibuprofen [Motrin] 800 mg PO DIRECTED 08/14/24 08/25/24 Previous Rx's Medication Instructions Recorded Apixaban [Eliquis] 5 mg PO DIRECTED 30 Days #30 tab 08/31/24 Doxycycline 100 mg PO BID 7 Days #14 tab 08/31/24 Multivitamins, Thera [Multivitamin 1 each PO DAILY tab 08/31/24 (formulary)] Nicotine Gum (Polacrilex) 2 mg BUCCAL Q2H PRN pieceofgum 08/31/24 [Nicorette] QUEtiapine FUMARATE [SEROquel] 400 mg PO HS 14 Days #14 tablet 08/31/24 Sertraline [Zoloft] 50 mg PO DAILY 14 Days #14 tab 08/31/24 Allergies Allergy/AdvReac Type Severity Reaction Status Date / Time No Known Allergies Allergy Verified 09/22/24 23:25 Review of Systems ROS Statement: Those systems with pertinent positive or pertinent negative responses have been documented in the HPI. ROS Other: All systems not noted in ROS Statement are negative. Past Medical History Past Medical History: Deep Vein Thrombosis (DVT), Thyroid Disorder Additional Past Medical History / Comment(s): ETOH abuse, past withdrawls with tremors/nausea/seizure, chronic low back pain, recent R knee/leg pain, DVT R leg, Catogory 5 blood disorder. Last Myocardial Infarction Date:: 07/2024 History of Any Multi-Drug Resistant Organisms: MRSA Date of last positivie culture/infection: august 2024 MDRO Source:: right side of face Past Surgical History: Cholecystectomy, Orthopedic Surgery Additional Past Surgical History / Comment(s): right knee tendon surgery Past Anesthesia/Blood Transfusion Reactions: Motion Sickness Additional Past Anesthesia/Blood Transfusion Reaction / Comment(s): Clausterphobia. Past Psychological History: Anxiety, Bipolar, Depression Smoking Status: Current every day smoker Past Alcohol Use History: Abuse, Daily, Heavy Past Drug Use History: Cocaine, Marijuana, Methamphetamine - Past Family History Father History Unknown: Yes Family Medical History: CVA/TIA Additional Family Medical History / Comment(s): Unable to obtain family history secondary altered mentation Mother Family Medical History: Congestive Heart Failure (CHF) General Exam Limitations: no limitations General appearance: alert, in no apparent distress, appears intoxicated Head exam: Present: atraumatic, normocephalic, normal inspection Eye exam: Present: normal appearance, PERRL, EOMI. Absent: scleral icterus, conjunctival injection, periorbital swelling ENT exam: Present: normal exam, mucous membranes moist Neck exam: Present: normal inspection. Absent: tenderness, meningismus, lymphadenopathy Respiratory exam: Present: normal lung sounds bilaterally. Absent: respiratory distress, wheezes, rales, rhonchi, stridor Cardiovascular Exam: Present: regular rate, normal rhythm, normal heart sounds. Absent: systolic murmur, diastolic murmur, rubs, gallop, clicks GI/Abdominal exam: Present: soft, normal bowel sounds. Absent: distended, tenderness, guarding, rebound, rigid Extremities exam: Present: normal inspection, full ROM, normal capillary refill. Absent: tenderness, pedal edema, joint swelling, calf tenderness Back exam: Present: normal inspection Neurological exam: Present: alert, oriented X3, CN II-XII intact Psychiatric exam: Present: normal affect, normal mood Skin exam: Present: warm, dry, intact, normal color. Absent: rash Course Vital Signs 09/22/24 09/23/24 23:23 06:26 Temperature 97.9 F 98.1 F Pulse Rate 96 107 H Respiratory 17 18 Rate Blood Pressure 130/84 106/72 O2 Sat by Pulse 96 97 Oximetry - Reevaluation(s) Reevaluation #1: 09/23/24 00:28 Medical records reviewed Reevaluation #2: Patient symptoms improved here in the ER Reevaluation #3: Patient informed of results and questions answered Reevaluation #4: Was pt. sent in by a medical professional or institution (, [facility], STORM DOOR MAKER, urgent care, hospital, or [facility]...) When possible be specific @ -no Did you speak to anyone other than the patient for history (EMS, parent, family, police, friend...)? What history was obtained from this source @ -no Did you review nursing and triage notes (agree or disagree)? Why? @ -agree Are old charts reviewed (outside hosp., previous admission, EMS record, old EKG, old radiological studies, urgent care reports/EKG's, [facility] records)? Report findings @ -yes Differential Diagnosis (chest pain, altered mental status, abdominal pain women, abdominal pain men, vaginal bleeding, weakness, fever, dyspnea, syncope, headache, dizziness, GI bleed, back pain, seizure, CVA, palpatations, mental health, musculoskeletal)? @ -prior EKG interpreted by me (3pts min.). @ -no X-rays interpreted by me (1pt min.). @ -no CT interpreted by me (1pt min.). @ -no U/S interpreted by me (1pt. min.). @ -no What testing was considered but not performed or refused? (CT, X-rays, U/S, labs)? Why? @ -none What meds were considered but not given or refused? Why? @ -none Did you discuss the management of the patient with other professionals (pro fessionals i.e. , JOANA, STORM DOOR MAKER, lab, RT, psych nurse, director social service, stylist assistant, teacher, chief digital officer, caser up)? Give summary @ -no Was smoking cessation discussed for >3mins.? @ -no Was critical care preformed (if so, how long)? @ -no Were there social determinants of health that impacted care today? How? (Homelessness, low income, unemployed, alcoholism, drug addiction, transportation, low edu. Level, literacy, decrease access to med. care, group home, rehab)? @ -none Was there de-escalation of care discussed even if they declined (Discuss DNR or withdrawal of care, Hospice)? DNR status @ -no What co-morbidities impacted this encounter? (DM, HTN, Smoking, COPD, CAD, Cancer, CVA, ARF, Chemo, Hep., AIDS, mental health diagnosis, sleep apnea, morbid obesity)? @ -none Was patient admitted / discharged? Hospital course, mention meds given and route, prescriptions, significant lab abnormalities, going to OR and other pertinent info. @ - 39 male to the ER for evaluation of significant alcohol intoxication. Patient is sober can be discharged home known homeless Discharge Undiagnosed new problem with uncertain prognosis? @ -no Drug Therapy requiring intensive monitoring for toxicity (Heparin, Nitro, Insulin, Cardizem)? @ -no Were any procedures done? @ -no Diagnosis/symptom? @ -Alcohol intoxication Acute, or Chronic, or Acute on Chronic? @ -Acute Uncomplicated (without systemic symptoms) or Complicated (systemic symptoms)? @ -Complicated Side effects of treatment? @ -no Exacerbation, Progression, or Severe Exacerbation? @ -exacerbation Poses a threat to life or bodily function? How? (Chest pain, [place], [place], pneumonia, PE, COPD, DKA, ARF, appy, cholecystitis, CVA, Diverticulitis, Homicidal, Suicidal, threat to staff... and all critical care pts) @ -no Reevaluation #5: Differential Altered Mental Status: Hypoglycemia, DKA, hypercapnia, ETOH, overdose, CO poisoning, trauma, myxedema coma, HTN encephalopathy, infection, encephalitis, psychosis, intercranial hemorrhage, hepatic encephalopathy, meningitis, CVA, this is not meant to be an all-inclusive list Medical Decision Making - Medical Decision Making 39 male to the ER for evaluation of significant alcohol intoxication. Patient is sober can be discharged home known homeless Disposition Clinical Impression: Alcohol use disorder Disposition: HOME SELF-CARE Condition: Fair Instructions (If sedation given, give patient instructions): Alcohol Intoxication (ED) Is patient prescribed a controlled substance at d/c from ED?: No Referrals: Emmanuel Hou MD [Primary Care Provider] - 1-2 days
[2024-09-23 06:32] VITALS: BP 106/72; PULSE 107; RESP 18; TEMP 98.1
== END 2024-09-23 06:35 | disposition home or self-care (01) ==
LOC: EC 23:21
DX: F10.90 Alcohol use, unspecified, uncomplicated (principal); F17.200 Nicotine dependence, unspecified, uncomplicated; Y90.9 Presence of alcohol in blood, level not specified
CPT/HCPCS: 99283

== ENCOUNTER 2024-10-09 23:56 | Emergency (ER) | payer OTHER ==
[2024-10-10 02:08] LABS: Influenza A Not Detected (Not Detectd); Influenza B Not Detected (Not Detectd); RSV Not Detected (Not Detectd)
--- NOTE | 2024-10-10 02:28 | ED ---
URI HPI - General Chief Complaint: Upper Respiratory Infection Stated Complaint: abd pain Time Seen by Provider: 10/10/24 00:07 Source: patient, RN notes reviewed Mode of arrival: ambulatory Limitations: no limitations - History of Present Illness MD Complaint: cough, rhinorrhea, nasal congestion Onset/Timin -: days(s) - Related Data Home Medications Medication Instructions Recorded Confirmed Folic Acid 1 mg PO DIRECTED 08/13/24 08/17/24 Thiamine [Vitamin B-1] 100 mg PO DIRECTED 08/13/24 08/17/24 Ibuprofen [Motrin] 800 mg PO DIRECTED 08/14/24 08/25/24 Previous Rx's Medication Instructions Recorded Apixaban [Eliquis] 5 mg PO DIRECTED 30 Days #30 tab 08/31/24 Doxycycline 100 mg PO BID 7 Days #14 tab 08/31/24 Multivitamins, Thera [Multivitamin 1 each PO DAILY tab 08/31/24 (formulary)] Nicotine Gum (Polacrilex) 2 mg BUCCAL Q2H PRN pieceofgum 08/31/24 [Nicorette] QUEtiapine FUMARATE [SEROquel] 400 mg PO HS 14 Days #14 tablet 08/31/24 Sertraline [Zoloft] 50 mg PO DAILY 14 Days #14 tab 08/31/24 Allergies Allergy/AdvReac Type Severity Reaction Status Date / Time No Known Allergies Allergy Verified 10/10/24 00:01 Review of Systems ROS Statement: Those systems with pertinent positive or pertinent negative responses have been documented in the HPI. ROS Other: All systems not noted in ROS Statement are negative. Past Medical History Past Medical History: Deep Vein Thrombosis (DVT), Thyroid Disorder Additional Past Medical History / Comment(s): ETOH abuse, past withdrawls with tremors/nausea/seizure, chronic low back pain, recent R knee/leg pain, DVT R leg, Catogory 5 blood disorder. Last Myocardial Infarction Date:: 07/2024 History of Any Multi-Drug Resistant Organisms: MRSA Date of last positivie culture/infection: august 2024 MDRO Source:: right side of face Past Surgical History: Cholecystectomy, Orthopedic Surgery Additional Past Surgical History / Comment(s): right knee tendon surgery Past Anesthesia/Blood Transfusion Reactions: Motion Sickness Additional Past Anesthesia/Blood Transfusion Reaction / Comment(s): Clausterphobia. Past Psychological History: Anxiety, Bipolar, Depression Past Alcohol Use History: Abuse, Daily, Heavy - Past Family History Father History Unknown: Yes Family Medical History: CVA/TIA Additional Family Medical History / Comment(s): Unable to obtain family history secondary altered mentation Mother Family Medical History: Congestive Heart Failure (CHF) General Exam General appearance: alert, in no apparent distress Head exam: Present: atraumatic, normocephalic, normal inspection Eye exam: Present: normal appearance, PERRL, EOMI. Absent: scleral icterus, conjunctival injection, periorbital swelling ENT exam: Present: normal exam, mucous membranes moist Neck exam: Present: normal inspection. Absent: tenderness, meningismus, lymphadenopathy Respiratory exam: Present: normal lung sounds bilaterally. Absent: respiratory distress, wheezes, rales, rhonchi, stridor, accessory muscle use, decreased breath sounds, prolonged expiratory Cardiovascular Exam: Present: regular rate, normal rhythm, normal heart sounds. Absent: systolic murmur, diastolic murmur, rubs, gallop, clicks GI/Abdominal exam: Present: soft, normal bowel sounds. Absent: distended, tenderness, guarding, rebound, rigid Extremities exam: Present: normal inspection, full ROM, normal capillary refill. Absent: tenderness, pedal edema, joint swelling, calf tenderness Back exam: Present: normal inspection Neurological exam: Present: alert, oriented X3, CN II-XII intact Psychiatric exam: Present: normal affect, normal mood Skin exam: Present: warm, dry, intact, normal color. Absent: rash Course Vital Signs 10/09/24 23:59 Temperature 97.6 F Pulse Rate 96 Respiratory 18 Rate Blood Pressure 138/93 O2 Sat by Pulse 98 Oximetry Medical Decision Making - Medical Decision Making Was pt. sent in by a medical professional or institution (, PA, SENIOR COMPENSATION CONSULTANT, urgent care, hospital, or [place] health care facility...) When possible be specific @ -[No] Did you speak to anyone other than the patient for history (EMS, parent, family, police, friend...)? What history was obtained from this source @ -[No] Did you review nursing and triage notes (agree or disagree)? Why? @ -[I reviewed and agree with nursing and triage notes] Were old charts reviewed (outside hosp., previous admission, EMS record, old EKG, old radiological studies, urgent care reports/EKG's, [place] health care facility records)? Report findings @ -[No old charts were reviewed] Differential Diagnosis (chest pain, altered mental status, abdominal pain women, abdominal pain men, vaginal bleeding, weakness, fever, dyspnea, syncope, headache, dizziness, GI bleed, back pain, seizure, CVA, palpatations, mental health, musculoskeletal)? @ -Differential Fever: Pneumonia, viral URI, endocarditis, myocarditis, pericarditis, otitis, sinusitis, peritonsillar Abscess, retropharyngeal Abscess, epiglottitis, peritonitis, appendicitis, Kirsten cystitis, diverticulitis, hepatitis, colitis, UTI, PID, TOA, pyelonephritis, prostatitis, epididymitis, meningitis, encephalitis, pulmonary embolism, CVA, thyroid storm, pancreatitis, adrenal crisis, cavernous sinus thrombosis, this is not meant to be an all-inclusive list. EKG interpreted by me (3pts min.). @ -Done X-rays interpreted by me (1pt min.). @ -[None done] CT interpreted by me (1pt min.). @ -[None done] U/S interpreted by me (1pt. min.). @ -[None done] What testing was considered but not performed or refused? (CT, X-rays, U/S, labs)? Why? @ -[None] What meds were considered but not given or refused? Why? @ -[None] Did you discuss the management of the patient with other professionals (professionals i.e. , PA, SENIOR COMPENSATION CONSULTANT, lab, RT, psych nurse, social work program coordinator, dehorner, teacher, seal delivery vehicle officer, case finisher)? Give summary @ -[No] Was smoking cessation discussed for >3mins.? @ -[No] Was critical care preformed (if so, how long)? @ -[No] Were there social determinants of health that impacted care today? How? (Homelessness, low income, unemployed, alcoholism, drug addiction, transportation, low edu. Level, literacy, decrease access to med. care, alf, rehab)? @ -[No] Was there de-escalation of care discussed even if they declined (Discuss DNR or withdrawal of care, Hospice)? DNR status @ -[No] What co-morbidities impacted this encounter? (DM, HTN, Smoking, COPD, CAD, Cancer, CVA, ARF, Chemo, Hep., AIDS, mental health diagnosis, sleep apnea, morbid obesity)? @ -[None] Was patient admitted / discharged? Hospital course, mention meds given and route, prescriptions, significant lab abnormalities, going to OR and other pertinent info. @ -[hospital course] Undiagnosed new problem with uncertain prognosis? @ -[No] Drug Therapy requiring intensive monitoring for toxicity (Heparin, Nitro, Insulin, Cardizem)? @ -[No] Were any procedures done? @ -[No] Diagnosis/symptom? @ -Respiratory infection Acute, or Chronic, or Acute on Chronic? @ -Acute Uncomplicated (without systemic symptoms) or Complicated (systemic symptoms)? @ -Uncomplicated Side effects of treatment? @ -[No] Exacerbation, Progression, or Severe Exacerbation? @ -[No] Poses a threat to life or bodily function? How? (Chest pain, [place], [place], pneumonia, PE, COPD, DKA, ARF, appy, cholecystitis, CVA, Diverticulitis, Homicidal, Suicidal, threat to staff... and all critical care pts) @ -[No] - Lab Data Lab Results 10/10/24 Range/Units 00:58 Influenza Type A (PCR) Not Detected (Not Detectd) Influenza Type B (PCR) Not Detected (Not Detectd) RSV (PCR) Not Detected (Not Detectd) SARS-CoV-2 (PCR) Not Detected (Not Detectd) Disposition Clinical Impression: Acute upper respiratory infection Disposition: HOME SELF-CARE Condition: Good Instructions (If sedation given, give patient instructions): Upper Respiratory Infection (ED) Additional Instructions: Follow-up with primary care for any ongoing or worsening symptoms. Alternate Tylenol/Motrin every 4 hours for fever/pain. Is patient prescribed a controlled substance at d/c from ED?: No Referrals: None,Stated [Primary Care Provider] - 1-2 days Avtar Mejia MD [STAFF PHYSICIAN] - 1-2 days Time of Disposition: 02:27
[2024-10-10 03:18] VITALS: BP 130/82; PULSE 89; RESP 16; TEMP 97.7
== END 2024-10-10 03:14 | disposition home or self-care (01) ==
LOC: EC 23:56
DX: J06.9 Acute upper respiratory infection, unspecified (principal)
CPT/HCPCS: 87636; 99284

== ENCOUNTER 2024-10-17 00:44 | Emergency (ER) | payer OTHER ==
[2024-10-17 00:49] VITALS: RESP 18; TEMP 97.7
--- NOTE | 2024-10-17 02:49 | ED ---
Psych HPI - General Chief Complaint: Psychiatric Symptoms Stated Complaint: Mental health Time Seen by Provider: 10/17/24 01:01 Source: patient Mode of arrival: ambulatory - History of Present Illness Initial Comments: Patient is 39-year-old man with history of psychiatric disease who presents with complaint that he has been feeling more depressed than his usual for him going b ack a number of weeks. He is having significant suicidal ideation. He states he is treated through [facility] but nothing has been helping. MD Complaint: suicidal ideation, feels depressed -: week(s) Associated Psychiatric Symptoms: depression, suicidal ideation History of same: Yes Quality: getting worse Improves With: none Worsens With: none Context: recent alcohol abuse Associated Symptoms: denies other symptoms - Related Data Home Medications Medication Instructions Recorded Confirmed Folic Acid 1 mg PO DIRECTED 08/13/24 08/17/24 Thiamine [Vitamin B-1] 100 mg PO DIRECTED 08/13/24 08/17/24 Ibuprofen [Motrin] 800 mg PO DIRECTED 08/14/24 08/25/24 Previous Rx's Medication Instructions Recorded Apixaban [Eliquis] 5 mg PO DIRECTED 30 Days #30 tab 08/31/24 Doxycycline 100 mg PO BID 7 Days #14 tab 08/31/24 Multivitamins, Thera [Multivitamin 1 each PO DAILY tab 08/31/24 (formulary)] Nicotine Gum (Polacrilex) 2 mg BUCCAL Q2H PRN pieceofgum 08/31/24 [Nicorette] QUEtiapine FUMARATE [SEROquel] 400 mg PO HS 14 Days #14 tablet 08/31/24 Sertraline [Zoloft] 50 mg PO DAILY 14 Days #14 tab 08/31/24 Allergies Allergy/AdvReac Type Severity Reaction Status Date / Time No Known Allergies Allergy Verified 10/23/24 22:13 Review of Systems ROS Statement: Those systems with pertinent positive or pertinent negative responses have been documented in the HPI. ROS Other: All systems not noted in ROS Statement are negative. Constitutional: Denies: fever, chills Respiratory: Denies: cough, dyspnea Cardiovascular: Denies: chest pain, palpitations Gastrointestinal: Denies: abdominal pain, vomiting, diarrhea Musculoskeletal: Denies: back pain Skin: Denies: rash Neurological: Denies: headache, weakness, numbness Psychiatric: Reports: depression, suicidal thoughts. Denies: auditory hallucinations, visual hallucinations, homicidal thoughts Past Medical History Past Medical History: Deep Vein Thrombosis (DVT), Thyroid Disorder Additional Past Medical History / Comment(s): ETOH abuse, past withdrawls with tremors/nausea/seizure, chronic low back pain, recent R knee/leg pain, DVT R leg, Catogory 5 blood disorder. Last Myocardial Infarction Date:: 07/2024 History of Any Multi-Drug Resistant Organisms: MRSA Date of last positivie culture/infection: august 2024 MDRO Source:: right side of face Past Surgical History: Cholecystectomy, Orthopedic Surgery Additional Past Surgical History / Comment(s): right knee tendon surgery Past Anesthesia/Blood Transfusion Reactions: Motion Sickness Additional Past Anesthesia/Blood Transfusion Reaction / Comment(s): Clausterphobia. Past Psychological History: Anxiety, Bipolar, Depression Smoking Status: Current every day smoker Past Alcohol Use History: Abuse, Daily, Heavy Past Drug Use History: None Reported - Past Family History Father History Unknown: Yes Family Medical History: CVA/TIA Additional Family Medical History / Comment(s): Unable to obtain family history secondary altered mentation Mother Family Medical History: Congestive Heart Failure (CHF) General Exam Limitations: no limitations General appearance: alert, in no apparent distress, appears intoxicated Head exam: Present: atraumatic, normocephalic Eye exam: Present: normal appearance. Absent: scleral icterus, conjunctival injection ENT exam: Present: normal oropharynx Neck exam: Present: normal inspection Respiratory exam: Present: normal lung sounds bilaterally. Absent: respiratory distress, wheezes, rales, rhonchi, stridor, accessory muscle use Cardiovascular Exam: Present: regular rate, normal rhythm, normal heart sounds. Absent: systolic murmur, diastolic murmur, rubs, gallop GI/Abdominal exam: Present: soft. Absent: distended, tenderness, guarding, rebound, rigid, mass Extremities exam: Present: normal inspection, normal capillary refill. Absent: pedal edema, calf tenderness Back exam: Present: normal inspection. Absent: CVA tenderness (R), CVA tenderness (L) Neurological exam: Present: alert Psychiatric exam: Present: depressed, suicidal ideation. Absent: agitated, anxious, flat affect, manic, homicidal ideation Skin exam: Present: warm, dry, intact, normal color. Absent: rash Course Vital Signs 10/17/24 10/17/24 00:48 05:15 Temperature 97.7 F Pulse Rate 105 H 100 Respiratory 18 18 Rate Blood Pressure 132/82 127/77 O2 Sat by Pulse 98 96 Oximetry Medical Decision Making - Medical Decision Making Was pt. sent in by a medical professional or institution (, JOANA, AIRPORT OPERATIONS SPECIALIST, urgent care, hospital, or care home...) When possible be specific @ -[No] Did you speak to anyone other than the patient for history (EMS, parent, family, police, friend...)? What history was obtained from this source @ -[No] Did you review nursing and triage notes (agree or disagree)? Why? @ -[I reviewed and agree with nursing and triage notes] Were old charts reviewed (outside hosp., previous admission, EMS record, old EKG, old radiological studies, urgent care reports/EKG's, care home records)? Report findings @ -[No old charts were reviewed] Differential Diagnosis (chest pain, altered mental status, abdominal pain women, abdominal pain men, vaginal bleeding, weakness, fever, dyspnea, syncope, headache, dizziness, GI bleed, back pain, seizure, CVA, palpatations, mental health, musculoskeletal)? @ -[Differential Mental Health Depression, anxiety, bipolar, psychosis, schizophrenia, borderline personality, situational depression, adjustment disorder, behavioral disorder, brain tumor, malingering, substance abuse, encephalopathy, medication reaction, dementia, hypothyroidism, degenerative neurologic disorder, lupus.... This is not meant to be all-inclusive list EKG interpreted by me (3pts min.). @ -[As above] X-rays interpreted by me (1pt min.). @ -[None done] CT interpreted by me (1pt min.). @ -[None done] U/S interpreted by me (1pt. min.). @ -[None done] What testing was considered but not performed or refused? (CT, X-rays, U/S, labs)? Why? @ -[None] What meds were considered but not given or refused? Why? @ -[None] Did you discuss the management of the patient with other professionals (professionals i.e. , JONAA, AIRPORT OPERATIONS SPECIALIST, lab, RT, psych nurse, child welfare social worker, criminal lawyer, teacher, veterans service officer, telephonic nurse case manager)? Give summary @ -[Case discussed with [facility] personnel Was smoking cessation discussed for >3mins.? @ -[No] Was critical care preformed (if so, how long)? @ -[No] Were there social determinants of health that impacted care today? How? (Homelessness, low income, unemployed, alcoholism, drug addiction, transportation, low edu. Level, literacy, decrease access to med. care, fpc, rehab)? @ -[Alcoholism Was there de-escalation of care discussed even if they declined (Discuss DNR or withdrawal of care, Hospice)? DNR status @ -[No] What co-morbidities impacted this encounter? (DM, HTN, Smoking, COPD, CAD, Cancer, CVA, ARF, Chemo, Hep., AIDS, mental health diagnosis, sleep apnea, morbid obesity)? @ -[Mood disorder Was patient admitted / discharged? Hospital course, mention meds given and route, prescriptions, significant lab abnormalities, going to OR and other pertinent info. @ -[Patient is a 39-year-old man with history of psychiatric disorder, he is seen by EPS after sobriety and they discussed with the psychiatrist. Patient is cleared to follow-up with [facility] as outpatient Undiagnosed new problem with uncertain prognosis? @ -[No] Drug Therapy requiring intensive monitoring for toxicity (Heparin, Nitro, Insulin, Cardizem)? @ -[No] Were any procedures done? @ -[No] Diagnosis/symptom? @ -[Acute alcohol intoxication Mood disorder Acute, or Chronic, or Acute on Chronic? @ -[Acute Uncomplicated (without systemic symptoms) or Complicated (systemic symptoms)? @ -[Uncomplicated Side effects of treatment? @ -[No] Exacerbation, Progression, or Severe Exacerbation? @ -[No] Poses a threat to life or bodily function? How? (Chest pain, [place], [place], pneumonia, PE, COPD, DKA, ARF, appy, cholecystitis, CVA, Diverticulitis, Homicidal, Suicidal, threat to staff... and all critical care pts) @ -[No] All treatments are based on ideal body weight as in ED triage Disposition Clinical Impression: Mood disorder Disposition: HOME SELF-CARE Condition: Good Instructions (If sedation given, give patient instructions): Mood Disorders (ED) Is patient prescribed a controlled substance at d/c from ED?: No Referrals: None,Stated [Primary Care Provider] - 1-2 days
[2024-10-17 05:16] VITALS: BP 127/77; PULSE 100
== END 2024-10-17 05:20 | disposition home or self-care (01) ==
LOC: EC 00:44
DX: F39 Unspecified mood [affective] disorder (principal); F10.129 Alcohol abuse with intoxication, unspecified; F17.200 Nicotine dependence, unspecified, uncomplicated; Y90.9 Presence of alcohol in blood, level not specified
CPT/HCPCS: 82075; 99284

== ENCOUNTER 2024-10-18 01:40 | Emergency (ER) | payer OTHER ==
[2024-10-18] MEDS: KETOROLAC 15 MG/ML 1 ML VIAL IM STA (04:14)
[2024-10-18] MEDS: ORPHENADRINE 30 MG/ML 2 ML VIAL IM STA (04:14)
[2024-10-18 04:52] LABS: Influenza A Not Detected (Not Detectd); Influenza B Not Detected (Not Detectd); RSV Not Detected (Not Detectd)
--- NOTE | 2024-10-18 07:14 | ED ---
Psych HPI - General Chief Complaint: Psychiatric Symptoms Stated Complaint: Mental Health Time Seen by Provider: 10/18/24 03:48 Source: patient Mode of arrival: ambulatory - History of Present Illness Initial Comments: This patient is 39-year-old man with history of psychiatric illness, presenting with complaint that he is feeling more depressed and having thoughts of harming himself. MD Complaint: suicidal ideation, feels depressed -: days(s) Associated Psychiatric Symptoms: depression, suicidal ideation History of same: Yes Quality: getting worse Improves With: none Worsens With: none Context: recent alcohol abuse - Related Data Home Medications Medication Instructions Recorded Confirmed Folic Acid 1 mg PO DIRECTED 08/13/24 08/17/24 Thiamine [Vitamin B-1] 100 mg PO DIRECTED 08/13/24 08/17/24 Ibuprofen [Motrin] 800 mg PO DIRECTED 08/14/24 08/25/24 Previous Rx's Medication Instructions Recorded Apixaban [Eliquis] 5 mg PO DIRECTED 30 Days #30 tab 08/31/24 Doxycycline 100 mg PO BID 7 Days #14 tab 08/31/24 Multivitamins, Thera [Multivitamin 1 each PO DAILY tab 08/31/24 (formulary)] Nicotine Gum (Polacrilex) 2 mg BUCCAL Q2H PRN pieceofgum 08/31/24 [Nicorette] QUEtiapine FUMARATE [SEROquel] 400 mg PO HS 14 Days #14 tablet 08/31/24 Sertraline [Zoloft] 50 mg PO DAILY 14 Days #14 tab 08/31/24 Allergies Allergy/AdvReac Type Severity Reaction Status Date / Time No Known Allergies Allergy Verified 10/23/24 22:13 Review of Systems ROS Statement: Those systems with pertinent positive or pertinent negative responses have been documented in the HPI. ROS Other: All systems not noted in ROS Statement are negative. Constitutional: Denies: fever, chills Eyes: Denies: vision change Respiratory: Denies: cough, dyspnea Cardiovascular: Denies: chest pain, palpitations Gastrointestinal: Denies: abdominal pain, vomiting, diarrhea Genitourinary: Denies: dysuria, hematuria Musculoskeletal: Denies: back pain Neurological: Denies: headache, weakness Psychiatric: Reports: depression, suicidal thoughts. Denies: auditory hallucinations, visual hallucinations, homicidal thoughts Past Medical History Past Medical History: Deep Vein Thrombosis (DVT), Thyroid Disorder Additional Past Medical History / Comment(s): ETOH abuse, past withdrawls with tremors/nausea/seizure, chronic low back pain, recent R knee/leg pain, DVT R leg, Catogory 5 blood disorder. Last Myocardial Infarction Date:: 07/2024 History of Any Multi-Drug Resistant Organisms: MRSA Date of last positivie culture/infection: august 2024 MDRO Source:: right side of face Past Surgical History: Cholecystectomy, Orthopedic Surgery Additional Past Surgical History / Comment(s): right knee tendon surgery Past Anesthesia/Blood Transfusion Reactions: Motion Sickness Additional Past Anesthesia/Blood Transfusion Reaction / Comment(s): Clausterphobia. Past Psychological History: Anxiety, Bipolar, Depression Past Alcohol Use History: Abuse, Daily, Heavy - Past Family History Father History Unknown: Yes Family Medical History: CVA/TIA Additional Family Medical History / Comment(s): Unable to obtain family history secondary altered mentation Mother Family Medical History: Congestive Heart Failure (CHF) General Exam Limitations: no limitations General appearance: alert, appears intoxicated Head exam: Present: atraumatic, normocephalic Eye exam: Present: normal appearance. Absent: scleral icterus, conjunctival injection Neck exam: Present: normal inspection Respiratory exam: Present: normal lung sounds bilaterally. Absent: respiratory distress, wheezes, rales, rhonchi, stridor, accessory muscle use Cardiovascular Exam: Present: regular rate, normal rhythm, normal heart sounds. Absent: systolic murmur, diastolic murmur, rubs, gallop GI/Abdominal exam: Present: soft. Absent: distended, tenderness, guarding, rebound, rigid, mass Extremities exam: Present: normal inspection, normal capillary refill. Absent: pedal edema, calf tenderness Back exam: Present: normal inspection Neurological exam: Present: alert Psychiatric exam: Present: depressed, suicidal ideation. Absent: anxious, flat affect, manic, homicidal ideation Skin exam: Present: warm, dry, intact, normal color. Absent: rash Course Vital Signs 10/18/24 10/18/24 03:23 09:10 Temperature 97.8 F 98.3 F Pulse Rate 90 67 Respiratory 15 18 Rate Blood Pressure 124/80 133/88 O2 Sat by Pulse 100 99 Oximetry Medical Decision Making - Medical Decision Making Was pt. sent in by a medical professional or institution (Dr., PA, HAND WRAPPER OPERATOR, urgent care, hospital, or custodial...) When possible be specific @ -[No] Did you speak to anyone other than the patient for history (EMS, parent, family, police, friend...)? What history was obtained from this source @ -[No] Did you review nursing and triage notes (agree or disagree)? Why? @ -[I reviewed and agree with nursing and triage notes] Were old charts reviewed (outside hosp., previous admission, EMS record, old EKG, old radiological studies, urgent care reports/EKG's, custodial records)? Report findings @ -[No old charts were reviewed] Differential Diagnosis (chest pain, altered mental status, abdominal pain women, abdominal pain men, vaginal bleeding, weakness, fever, dyspnea, syncope, headache, dizziness, GI bleed, back pain, seizure, CVA, palpatations, mental health, musculoskeletal)? @ -[Differential Mental Health Depression, anxiety, bipolar, psychosis, schizophrenia, borderline personality, situational depression, adjustment disorder, behavioral disorder, brain tumor, malingering, substance abuse, encephalopathy, medication reaction, dementia, hypothyroidism, degenerative neurologic disorder, lupus.... This is not meant to be all-inclusive list EKG interpreted by me (3pts min.). @ -[As above] X-rays interpreted by me (1pt min.). @ -[None done] CT interpreted by me (1pt min.). @ -[None done] U/S interpreted by me (1pt. min.). @ -[None done] What testing was considered but not performed or refused? (CT, X-rays, U/S, labs)? Why? @ -[None] What meds were considered but not given or refused? Why? @ -[None] Did you discuss the management of the patient with other professionals (professionals i.e. , PA, HAND WRAPPER OPERATOR, lab, RT, psych nurse, licensed social worker, material spreader, teacher, parking regulation enforcement officer, rn case manager hospice)? Give summary @ -[No] Was smoking cessation discussed for >3mins.? @ -[No] Was critical care preformed (if so, how long)? @ -[No] Were there social determinants of health that impacted care today? How? (Homelessness, low income, unemployed, alcoholism, drug addiction, transportation, low edu. Level, literacy, decrease access to med. care, long term, rehab)? @ -[Alcoholism Was there de-escalation of care discussed even if they declined (Discuss DNR or withdrawal of care, Hospice)? DNR status @ -[No] What co-morbidities impacted this encounter? (DM, HTN, Smoking, COPD, CAD, Cancer, CVA, ARF, Chemo, Hep., AIDS, mental health diagnosis, sleep apnea, morbid obesity)? @ -[Mood disorder Was patient admitted / discharged? Hospital course, mention meds given and route, prescriptions, significant lab abnormalities, going to OR and other pertinent info. @ -[The patient is held until sobriety and then evaluated by EPS and they deem he is stable to continue outpatient care. Safety plan prepared Undiagnosed new problem with uncertain prognosis? @ -[No] Drug Therapy requiring intensive monitoring for toxicity (Heparin, Nitro, Insulin, Cardizem)? @ -[No] Were any procedures done? @ -[No] Diagnosis/symptom? @ -[Alcohol intoxication Mood disorder Acute, or Chronic, or Acute on Chronic? @ -[Acute on chronic Uncomplicated (without systemic symptoms) or Complicated (systemic symptoms)? @ -[Uncomplicated Side effects of treatment? @ -[No] Exacerbation, Progression, or Severe Exacerbation? @ -[No] Poses a threat to life or bodily function? How? (Chest pain, [place], [place], pneumonia, PE, COPD, DKA, ARF, appy, cholecystitis, CVA, Diverticulitis, Homicidal, Suicidal, threat to staff... and all critical care pts) @ -[No] All treatments are based on ideal body weight as in ED triage - Lab Data Lab Results 10/18/24 Range/Units 04:09 Influenza Type A (PCR) Not Detected (Not Detectd) Influenza Type B (PCR) Not Detected (Not Detectd) RSV (PCR) Not Detected (Not Detectd) SARS-CoV-2 (PCR) Not Detected (Not Detectd) Disposition Clinical Impression: Chronic back pain Disposition: HOME SELF-CARE Condition: Good Instructions (If sedation given, give patient instructions): Chronic Back Pain (DC) Is patient prescribed a controlled substance at d/c from ED?: No Referrals: None,Stated [Primary Care Provider] - 1-2 days
[2024-10-18 09:11] VITALS: BP 133/88; PULSE 67; RESP 18; TEMP 98.3
== END 2024-10-18 09:17 | disposition home or self-care (01) ==
LOC: EC 01:40
DX: F39 Unspecified mood [affective] disorder (principal); F10.129 Alcohol abuse with intoxication, unspecified; G89.29 Other chronic pain; M54.9 Dorsalgia, unspecified; Z11.52 Encounter for screening for COVID-19
CPT/HCPCS: 82075; 87636; 99285; 96372 ×2; J2360; J1885

== ENCOUNTER 2024-10-19 01:41 | Emergency (ER) | payer OTHER ==
--- NOTE | 2024-10-19 07:50 | ED ---
Psych HPI - General Source: patient Mode of arrival: ambulatory - History of Present Illness MD Complaint: suicidal ideation, feels depressed -: days(s) Associated Psychiatric Symptoms: depression, suicidal ideation History of same: Yes Quality: getting worse Improves With: none Worsens With: none Context: recent alcohol abuse <Marciano Beatty - Last Filed: 10/19/24 07:48> <Tucker Perdomo - Last Filed: 10/19/24 11:26> - General Chief Complaint: Psychiatric Symptoms Stated Complaint: Back pain, [facility] Time Seen by Provider: 10/19/24 02:18 - History of Present Illness Initial Comments: Patient is 39-year-old man with history of previous mood disorder and suicidal ideation who states that over the past days to weeks he has been hearing voices and having suicidal ideation. He requests to have psychiatric evaluation. (Marciano Beatty) - Related Data Home Medications Medication Instructions Recorded Confirmed Folic Acid 1 mg PO DIRECTED 08/13/24 08/17/24 Thiamine [Vitamin B-1] 100 mg PO DIRECTED 08/13/24 08/17/24 Ibuprofen [Motrin] 800 mg PO DIRECTED 08/14/24 08/25/24 Previous Rx's Medication Instructions Recorded Apixaban [Eliquis] 5 mg PO DIRECTED 30 Days #30 tab 08/31/24 Doxycycline 100 mg PO BID 7 Days #14 tab 08/31/24 Multivitamins, Thera [Multivitamin 1 each PO DAILY tab 08/31/24 (formulary)] Nicotine Gum (Polacrilex) 2 mg BUCCAL Q2H PRN pieceofgum 08/31/24 [Nicorette] QUEtiapine FUMARATE [SEROquel] 400 mg PO HS 14 Days #14 tablet 08/31/24 Sertraline [Zoloft] 50 mg PO DAILY 14 Days #14 tab 08/31/24 Allergies Allergy/AdvReac Type Severity Reaction Status Date / Time No Known Allergies Allergy Verified 10/19/24 01:58 Review of Systems ROS Other: All systems not noted in ROS Statement are negative. Constitutional: Denies: fever, chills, weakness Respiratory: Denies: cough, dyspnea Cardiovascular: Denies: chest pain, palpitations Gastrointestinal: Denies: abdominal pain, nausea, vomiting Genitourinary: Denies: dysuria, hematuria Musculoskeletal: Reports: back pain (Chronic pain) Skin: Denies: rash Neurological: Denies: headache Psychiatric: Reports: depression, auditory hallucinations, suicidal thoughts. Denies: visual hallucinations, homicidal thoughts <Marciano Beatty - Last Filed: 10/19/24 07:48> ROS Other: All systems not noted in ROS Statement are negative. <Tucker Perdomo - Last Filed: 10/19/24 11:26> ROS Statement: Those systems with pertinent positive or pertinent negative responses have been documented in the HPI. Past Medical History Past Medical History: Deep Vein Thrombosis (DVT), Thyroid Disorder Additional Past Medical History / Comment(s): ETOH abuse, past withdrawls with tremors/nausea/seizure, chronic low back pain, recent R knee/leg pain, DVT R leg, Catogory 5 blood disorder. Last Myocardial Infarction Date:: 07/2024 History of Any Multi-Drug Resistant Organisms: MRSA Date of last positivie culture/infection: august 2024 MDRO Source:: right side of face Past Surgical History: Cholecystectomy, Orthopedic Surgery Additional Past Surgical History / Comment(s): right knee tendon surgery Past Anesthesia/Blood Transfusion Reactions: Motion Sickness Additional Past Anesthesia/Blood Transfusion Reaction / Comment(s): Clausterphobia. Past Psychological History: Anxiety, Bipolar, Depression Smoking Status: Current every day smoker Past Alcohol Use History: Abuse, Daily, Heavy Past Drug Use History: None Reported - Past Family History Father History Unknown: Yes Family Medical History: CVA/TIA Additional Family Medical History / Comment(s): Unable to obtain family history secondary altered mentation Mother Family Medical History: Congestive Heart Failure (CHF) <Marciano Beatty - Last Filed: 10/19/24 07:48> General Exam Limitations: no limitations General appearance: alert, in no apparent distress, appears intoxicated Head exam: Present: atraumatic, normocephalic Eye exam: Present: normal appearance. Absent: scleral icterus, conjunctival injection Neck exam: Present: normal inspection Respiratory exam: Present: normal lung sounds bilaterally. Absent: respiratory distress, wheezes, rales, rhonchi, stridor Cardiovascular Exam: Present: regular rate, normal rhythm, normal heart sounds. Absent: systolic murmur, diastolic murmur, rubs, gallop GI/Abdominal exam: Present: soft. Absent: tenderness Extremities exam: Present: normal inspection, normal capillary refill Neurological exam: Present: alert Psychiatric exam: Present: depressed, suicidal ideation. Absent: agitated, anxious, flat affect, manic, homicidal ideation Skin exam: Present: warm, dry, intact, normal color. Absent: rash <JaciMarciano - Last Filed: 10/19/24 07:48> Course Vital Signs 10/19/24 01:56 Temperature 97.6 F Pulse Rate 92 Respiratory 18 Rate Blood Pressure 123/82 O2 Sat by Pulse 98 Oximetry Medical Decision Making <Tucker Perdomo - Last Filed: 10/19/24 11:26> - Medical Decision Making Was patient admitted / discharged? Hospital course, mention meds given and route, prescriptions, significant lab abnormalities, going to OR and other per tinent info. @ -EPS evaluated the patient and determined the patient could be discharged home safely. Patient was in agreement this a safety plan was given to the patient and he understood the safety plan and patient will be discharged home. Undiagnosed new problem with uncertain prognosis? @ -No Drug Therapy requiring intensive monitoring for toxicity (Heparin, Nitro, Insulin, Cardizem)? @ -No Were any procedures done? @ -No Diagnosis/symptom? @ -Situational depression Acute, or Chronic, or Acute on Chronic? @ -Acute Uncomplicated (without systemic symptoms) or Complicated (systemic symptoms)? @ -Complicated Side effects of treatment? @ -No Exacerbation, Progression, or Severe Exacerbation? @ -No Poses a threat to life or bodily function? How? (Chest pain, [place], [place], pneumonia, PE, COPD, DKA, ARF, appy, cholecystitis, CVA, Diverticulitis, Homicidal, Suicidal, threat to staff... and all critical care pts) @ -No Diagnosis/symptom? @ -Alcohol intoxication Acute, or Chronic, or Acute on Chronic? @ -Acute Uncomplicated (without systemic symptoms) or Complicated (systemic symptoms)? @ -Complicated Side effects of treatment? @ -None Exacerbation, Progression, or Severe Exacerbation] @ -No Poses a threat to life or bodily function? @ -No (Tucker Perdomo) Disposition <Marciano Beatty - Last Filed: 10/19/24 07:48> Is patient prescribed a controlled substance at d/c from ED?: No Time of Disposition: : <Tucker Perdomo - Last Filed: 10/19/24 11:26> Clinical Impression: Situational depression, Alcohol intoxication Disposition: HOME SELF-CARE Condition: Good Instructions (If sedation given, give patient instructions): Alcohol Intoxication (ED), Depression (ED) Referrals: None,Stated [Primary Care Provider] - 1-2 days
[2024-10-19 12:12] VITALS: BP 129/89; PULSE 87; RESP 20; TEMP 98.6
== END 2024-10-19 12:12 | disposition home or self-care (01) ==
LOC: EC 01:41
DX: F10.129 Alcohol abuse with intoxication, unspecified (principal); F43.21 Adjustment disorder with depressed mood; F17.200 Nicotine dependence, unspecified, uncomplicated
CPT/HCPCS: 82075; 99284

== ENCOUNTER 2024-10-20 04:14 | Emergency (ER) | payer OTHER ==
--- NOTE | 2024-10-20 04:34 | ED ---
General Adult HPI - General Chief complaint: Back Pain/Injury Stated complaint: Leg pain Time Seen by Provider: 10/20/24 04:23 Source: patient, RN notes reviewed, old records reviewed Mode of arrival: ambulatory Limitations: no limitations - History of Present Illness Initial comments: 39-year-old male presenting with generalized pain. Patient is currently denying any injury. States he has generalized myalgia and pain. He has been out in the sun for the past 2 days. He also states that he is hungry and thirsty. Denies fever. Denies chest pain or abdominal pain. - Related Data Home Medications Medication Instructions Recorded Confirmed Folic Acid 1 mg PO DIRECTED 08/13/24 08/17/24 Thiamine [Vitamin B-1] 100 mg PO DIRECTED 08/13/24 08/17/24 Ibuprofen [Motrin] 800 mg PO DIRECTED 08/14/24 08/25/24 Previous Rx's Medication Instructions Recorded Apixaban [Eliquis] 5 mg PO DIRECTED 30 Days #30 tab 08/31/24 Doxycycline 100 mg PO BID 7 Days #14 tab 08/31/24 Multivitamins, Thera [Multivitamin 1 each PO DAILY tab 08/31/24 (formulary)] Nicotine Gum (Polacrilex) 2 mg BUCCAL Q2H PRN pieceofgum 08/31/24 [Nicorette] QUEtiapine FUMARATE [SEROquel] 400 mg PO HS 14 Days #14 tablet 08/31/24 Sertraline [Zoloft] 50 mg PO DAILY 14 Days #14 tab 08/31/24 Allergies Allergy/AdvReac Type Severity Reaction Status Date / Time No Known Allergies Allergy Verified 10/20/24 04:19 Review of Systems ROS Statement: Those systems with pertinent positive or pertinent negative responses have been documented in the HPI. ROS Other: All systems not noted in ROS Statement are negative. Past Medical History Past Medical History: Deep Vein Thrombosis (DVT), Thyroid Disorder Additional Past Medical History / Comment(s): ETOH abuse, past withdrawls with tremors/nausea/seizure, chronic low back pain, recent R knee/leg pain, DVT R leg, Catogory 5 blood disorder. Last Myocardial Infarction Date:: 07/2024 History of Any Multi-Drug Resistant Organisms: MRSA Date of last positivie culture/infection: august 2024 MDRO Source:: right side of face Past Surgical History: Cholecystectomy, Orthopedic Surgery Additional Past Surgical History / Comment(s): right knee tendon surgery Past Anesthesia/Blood Transfusion Reactions: Motion Sickness Additional Past Anesthesia/Blood Transfusion Reaction / Comment(s): Clausterphobia. Past Psychological History: Anxiety, Bipolar, Depression Smoking Status: Current every day smoker Past Alcohol Use History: Abuse, Daily, Heavy Past Drug Use History: None Reported - Past Family History Father History Unknown: Yes Family Medical History: CVA/TIA Additional Family Medical History / Comment(s): Unable to obtain family history secondary altered mentation Mother Family Medical History: Congestive Heart Failure (CHF) General Exam Limitations: no limitations General appearance: alert, in no apparent distress Head exam: Present: atraumatic, normocephalic Eye exam: Present: normal appearance, PERRL ENT exam: Present: normal exam Neck exam: Present: normal inspection. Absent: tenderness, meningismus Respiratory exam: Present: normal lung sounds bilaterally. Absent: respiratory distress Cardiovascular Exam: Present: regular rate, normal rhythm GI/Abdominal exam: Present: soft. Absent: distended Extremities exam: Present: normal inspection, normal capillary refill Neurological exam: Present: alert, oriented X3, CN II-XII intact. Absent: motor sensory deficit Psychiatric exam: Present: normal affect, normal mood Skin exam: Present: warm, dry, intact. Absent: cyanosis, diaphoretic Course Vital Signs 10/20/24 04:19 Temperature 98.1 F Pulse Rate 99 Respiratory 18 Rate Blood Pressure 137/86 O2 Sat by Pulse 95 Oximetry Medical Decision Making - Medical Decision Making Was pt. sent in by a medical professional or institution (, PA, CHIEF EXECUTIVE OFFICER, urgent care, hospital, or correction...) When possible be specific @ -No Did you speak to anyone other than the patient for history (EMS, parent, family, police, friend...)? What history was obtained from this source @ -No Did you review nursing and triage notes (agree or disagree)? Why? @ -I reviewed and agree with nursing and triage notes Were old charts reviewed (outside hosp., previous admission, EMS record, old EKG, old radiological studies, urgent care reports/EKG's, correction records)? Report findings @ -No old charts were reviewed Differential Musculoskeletal Muscular strain, contusion, ligament sprain, fracture, arthritis, septic arthritis, bursitis, cellulitis, muscle spasm, nerve compression, DVT, arterial occlusion, herpes zoster, electrolyte abnormality, tumor.... This is not meant to be in all inclusive list EKG interpreted by me (3pts min.). @ -As above X-rays interpreted by me (1pt min.). @ -None done CT interpreted by me (1pt min.). @ -None done U/S interpreted by me (1pt. min.). @ -None done What testing was considered but not performed or refused? (CT, X-rays, U/S, labs)? Why? @ -None What meds were considered but not given or refused? Why? @ -None Did you discuss the management of the patient with other professionals (professionals i.e. , PA, CHIEF EXECUTIVE OFFICER, lab, RT, psych nurse, social media intern, credit product analyst, teacher, air intelligence officer, case assistant)? Give summary @ -No Was smoking cessation discussed for >3mins.? @ -No Was critical care preformed (if so, how long)? @ -No Were there social determinants of health that impacted care today? How? ( Homelessness, low income, unemployed, alcoholism, drug addiction, transportation, low edu. Level, literacy, decrease access to med. care, skilled nursing, rehab)? @ -No Was there de-escalation of care discussed even if they declined (Discuss DNR or withdrawal of care, Hospice)? DNR status @ -No What co-morbidities impacted this encounter? (DM, HTN, Smoking, COPD, CAD, Cancer, CVA, ARF, Chemo, Hep., AIDS, mental health diagnosis, sleep apnea, morbid obesity)? @ -None Was patient admitted / discharged? Hospital course, mention meds given and route, prescriptions, significant lab abnormalities, going to OR and other pertinent info. @ -Patient evaluated, stable vitals, patient is currently homeless and requesting food and water. He is given Toradol for his generalized pain complaint. No other specific issue identified on today's visit. Stable for discharge. Undiagnosed new problem with uncertain prognosis? @ -No Drug Therapy requiring intensive monitoring for toxicity (Heparin, Nitro, Insulin, Cardizem)? @ -No Were any procedures done? @ -No Diagnosis/symptom? @ -[Chronic pain Acute, or Chronic, or Acute on Chronic? @ -Chronic Uncomplicated (without systemic symptoms) or Complicated (systemic symptoms)? @ -Default Side effects of treatment? @ -No Exacerbation, Progression, or Severe Exacerbation? @ -No Poses a threat to life or bodily function? How? (Chest pain, [place], [place], pneumonia, PE, COPD, DKA, ARF, appy, cholecystitis, CVA, Diverticulitis, Homicidal, Suicidal, threat to staff... and all critical care pts) @ -No Disposition Clinical Impression: Chronic pain Disposition: HOME SELF-CARE Condition: Fair Instructions (If sedation given, give patient instructions): Chronic Pain (ED) Is patient prescribed a controlled substance at d/c from ED?: No Referrals: None,Stated [Primary Care Provider] - 1-2 days [facility] [NON-STAFF] - 1-2 days Time of Disposition: 06:30
[2024-10-20] MEDS: KETOROLAC 15 MG/ML 1 ML VIAL IM STA (04:43)
[2024-10-20 07:09] VITALS: BP 117/69; PULSE 109; RESP 16; TEMP 98.5
== END 2024-10-20 07:04 | disposition home or self-care (01) ==
LOC: EC 04:14
DX: G89.29 Other chronic pain (principal); F17.200 Nicotine dependence, unspecified, uncomplicated
CPT/HCPCS: 99283; 96372; J1885

== ENCOUNTER 2024-10-23 21:42 | Emergency (ER) | payer OTHER ==
[2024-10-23 22:13] VITALS: TEMP 97.9
--- NOTE | 2024-10-23 23:16 | ED ---
General Adult HPI - General Chief complaint: Abdominal Pain Stated complaint: Abd Pain,Dizziness Time Seen by Provider: 10/23/24 22:54 Source: patient Mode of arrival: ambulatory Limitations: no limitations - History of Present Illness Initial comments: Patient is a 39-year-old gentleman past medical history of alcoholism presenting today for abdominal pain. This dates intermittent for the last few weeks. Has become constant over the last week. Central sized on the abdomen, sharp and burning in nature. Feels as though he though the burning is making his throat feel sore as well. Versus nausea, nonbloody nonbilious emesis, no diarrhea but notes black stools. Denies dysuria or hematuria. Denies being on blood thinners. He does drink alcohol daily. Last drink was just prior to arrival, states he "had a little something" but does not specify how much or what he drank. Denies focal numbness or weakness, shortness of breath or chest pain, fevers or chills. Surgical history includes prior cholecystectomy. - Related Data Home Medications Medication Instructions Recorded Confirmed Folic Acid 1 mg PO DIRECTED 08/13/24 08/17/24 Thiamine [Vitamin B-1] 100 mg PO DIRECTED 08/13/24 08/17/24 Ibuprofen [Motrin] 800 mg PO DIRECTED 08/14/24 08/25/24 Previous Rx's Medication Instructions Recorded Apixaban [Eliquis] 5 mg PO DIRECTED 30 Days #30 tab 08/31/24 Doxycycline 100 mg PO BID 7 Days #14 tab 08/31/24 Multivitamins, Thera [Multivitamin 1 each PO DAILY tab 08/31/24 (formulary)] Nicotine Gum (Polacrilex) 2 mg BUCCAL Q2H PRN pieceofgum 08/31/24 [Nicorette] QUEtiapine FUMARATE [SEROquel] 400 mg PO HS 14 Days #14 tablet 08/31/24 Sertraline [Zoloft] 50 mg PO DAILY 14 Days #14 tab 08/31/24 Allergies Allergy/AdvReac Type Severity Reaction Status Date / Time No Known Allergies Allergy Verified 10/23/24 22:13 Review of Systems ROS Statement: Those systems with pertinent positive or pertinent negative responses have been documented in the HPI. ROS Other: All systems not noted in ROS Statement are negative. Past Medical History Past Medical History: Deep Vein Thrombosis (DVT), Thyroid Disorder Additional Past Medical History / Comment(s): ETOH abuse, past withdrawls with tremors/nausea/seizure, chronic low back pain, recent R knee/leg pain, DVT R leg, Catogory 5 blood disorder. Last Myocardial Infarction Date:: 07/2024 History of Any Multi-Drug Resistant Organisms: MRSA Date of last positivie culture/infection: august 2024 MDRO Source:: right side of face Past Surgical History: Cholecystectomy, Orthopedic Surgery Additional Past Surgical History / Comment(s): right knee tendon surgery Past Anesthesia/Blood Transfusion Reactions: Motion Sickness Additional Past Anesthesia/Blood Transfusion Reaction / Comment(s): Clausterphobia. Past Psychological History: Anxiety, Bipolar, Depression Smoking Status: Current every day smoker Past Alcohol Use History: Abuse, Daily, Heavy Past Drug Use History: None Reported - Past Family History Father History Unknown: Yes Family Medical History: CVA/TIA Additional Family Medical History / Comment(s): Unable to obtain family history secondary altered mentation Mother Family Medical History: Congestive Heart Failure (CHF) General Exam - General Exam Comments Initial Comments: PE: CONSTITUTIONAL: [no apparent distress, well appearing, disheveled, breast strongly of alcohol and does appear intoxicated] SKIN: [warm, dry, no jaundice, hives or petechiae] EYES:[ pupils are equally round, extraocular movements intact without nystagmus, clear conjunctiva, non-icteric sclera] HENT: [normocephalic, atraumatic, moist mucus membranes, oropharynx clear without exudates] NECK: , [Full range of motion, normal appearance] PULMONARY: [clear to auscultation without wheezes, rhonchi, or rales, normal excursion, no accessory muscle use and no stridor] CARDIOVASCULAR:[ regular rate, rhythm, normal S1 and S2. No appreciated murmurs, rubs or gallops. Strong radial pulses with intact distal perfusion. No lower extremity edema] GASTROINTESTINAL: [soft, active bowel sounds throughout, minimal epigastric tenderness to palpation, non-distended, no palpable masses, no rebound or guarding. No hepatosplenomegaly] GENITOURINARY: MUSCULOSKELETAL: [Extremities have no gross deformity, no edema, redness, or swelling. No calf swelling ] NEUROLOGIC: [_a/o x 3, GCS 15, normal mentation and speech. Moves all extremi ties x 4 without motor or sensory deficit] PSYCHIATRIC:[ _normal mood and affect, thought process is clear and linear] Limitations: no limitations Course Vital Signs 10/23/24 10/24/24 22:11 00:06 Temperature 97.9 F Pulse Rate 115 H 100 Respiratory 16 18 Rate Blood Pressure 148/76 110/76 O2 Sat by Pulse 96 97 Oximetry EKG Findings - EKG Comments: EKG Findings:: Sinus tachycardia, rate 104 bpm intervals within acceptable limits, normal axis, no significant ST elevations or depressions, no ischemic changes, no arrhythmia Medical Decision Making - Medical Decision Making Was pt. sent in by a medical professional or institution (, PA, RADAR MECHANIC, urgent care, hospital, or retirement...) When possible be specific @ -[No] Did you speak to anyone other than the patient for history (EMS, parent, family, police, friend...)? What history was obtained from this source @ -[No] Did you review nursing and triage notes (agree or disagree)? Why? @ -[I reviewed nursing and triage notes] Were old charts reviewed (outside hosp., previous admission, EMS record, old EKG, old radiological studies, urgent care reports/EKG's, retirement records)? Report findings @ -[Medical records reviewed]-Reviewed ED report from 10/20/2024, patient had presented at that time for generalized pain, per that note patient denied abdominal pain at that time Differential Diagnosis (chest pain, altered mental status, abdominal pain women, abdominal pain men, vaginal bleeding, weakness, fever, dyspnea, syncope, headache, dizziness, GI bleed, back pain, seizure, CVA, palpatations, mental health, musculoskeletal)? @ -Differential Abdominal Pain Men: Appendicitis, cholecystitis, diverticulosis, ischemic bowel, pancreatitis, hepatitis, UTI, gastroenteritis, AAA, incarcerated hernia, bowel obstruction, co nstipation, inflammatory bowel, hepatitis, peptic ulcer disease, splenic infarction, perforated viscus, testicular torsion, this is not meant to be an all-inclusive list EKG interpreted by me (3pts min.). @ -[As above] X-rays interpreted by me (1pt min.). @ -[None done] CT interpreted by me (1pt min.). @ -[None done] U/S interpreted by me (1pt. min.). @ -[None done] What testing was considered but not performed or refused? (CT, X-rays, U/S, labs)? Why? @ -[None] What meds were considered but not given or refused? Why? @ -[None] Did you discuss the management of the patient with other professionals (professionals i.e. , PA, RADAR MECHANIC, lab, RT, psych nurse, social service assistant, appliance worker, teacher, security patrol officer, continuous pillowcase cutter)? Give summary @ -[No] Was smoking cessation discussed for >3mins.? @ -[No] Was critical care preformed (if so, how long)? @ -[No] Were there social determinants of health that impacted care today? How? (Homelessness, low income, unemployed, alcoholism, drug addiction, transpor tation, low edu. Level, literacy, decrease access to med. care, skilled nursing, rehab)? @Alcoholism Was there de-escalation of care discussed even if they declined (Discuss DNR or withdrawal of care, Hospice)? @ -[No] What co-morbidities impacted this encounter? (DM, HTN, Smoking, COPD, CAD, Cancer, CVA, ARF, Chemo, Hep., AIDS, mental health diagnosis, sleep apnea, morbid obesity)? @ -[None] Was patient admitted / discharged? Hospital course, mention meds given and route, prescriptions, significant lab abnormalities, going to OR and other pertinent info. @ -[hospital course] this is a 39-year-old gentleman past medical history of alcoholism presenting today for 1 week of abdominal pain. Tachycardic on arrival otherwise vital signs within acceptable limits. My assessment patient is resting comfortably, he does appear intoxicated endorses alcohol use prior to arrival. Endorses sharp and burning epigastric pain. Differential as noted above. Will obtain apprise of labs including lipase, amylase, CBC, CMP, urinalysis provide IV fluids and pain control. Labs and imaging reviewed. Grossly within normal limits. Abnormal values not concerning for acute pathology related to presenting complaint. Occult negative. Suspect gastritis or peptic ulcer disease. Patient be discharged home Undiagnosed new problem with uncertain prognosis? @ -[No] Drug Therapy requiring intensive monitoring for toxicity (Heparin, Nitro, Insulin, Cardizem)? @ -[No] Were any procedures done? @ -[No] Diagnosis/symptom? @ -[default] Acute, or Chronic, or Acute on Chronic? @ -[default] Uncomplicated (without systemic symptoms) or Complicated (systemic symptoms)? @ -[default] Side effects of treatment? @ -[No] Exacerbation, Progression, or Severe Exacerbation? @ -[No] Poses a threat to life or bodily function? How? (Chest pain, USA, AR, pneumonia, PE, COPD, DKA, ARF, appy, cholecystitis, CVA, Diverticulitis, Homicidal, Suicidal, threat to staff... and all critical care pts) @ -[No] - Lab Data Result diagrams: 10/23/24 23:15 10/23/24 23:15 Lab Results 10/23/24 10/23/24 10/23/24 Range/Units 23:15 23:15 23:15 WBC 10.05 H (4.50-10.00) 10*3/uL RBC 4.46 (4.40-5.60) 10*6/uL Hgb 14.6 (13.0-17.0) g/dL Hct 40.2 (39.6-50.0) % MCV 90.1 (80.0-97.0) fL MCH 32.7 H (27.0-32.0) pg MCHC 36.3 (32.0-37.0) g/dL Plt Count 227 (140-440) 10*3/uL MPV 9.5 (9.5-12.2) fL Immature Gran % (Auto) 0.4 % Neutrophils % 73.7 % Lymphocytes % 16.1 % Monocytes % 8.7 % Eosinophils % 0.3 % Basophils % 0.8 % Immature Gran # 0.04 (0.00-0.04) 10*3/uL Neutrophils # 7.41 (1.80-7.70) 10*3/uL Lymphocytes # 1.62 (0.90-5.00) 10*3/uL Monocytes # 0.87 (0.20-1.00) 10*3/uL Eosinophils # 0.03 L (0.04-0.35) 10*3/uL Basophils # 0.08 (0.00-0.10) 10*3/uL PT 10.7 (10.0-12.5) sec INR 1.0 (<1.2) APTT 22.7 (22.0-30.0) sec Sodium 136 L (137-145) mmol/L Potassium 3.3 L (3.5-5.1) mmol/L Chloride 98 (98-107) mmol/L Carbon Dioxide 25 (22-30) mmol/L Anion Gap 13 mmol/L BUN 11 (9-20) mg/dL Creatinine 1.10 (0.66-1.25) mg/dL Est GFR (CKD-EPI)AfAm >90 (>60 ml/min/1.73 sqM) Est GFR (CKD-EPI)NonAf 84 (>60 ml/min/1.73 sqM) Glucose 110 H (74-99) mg/dL Calcium 9.4 (8.4-10.2) mg/dL Total Bilirubin 0.9 (0.2-1.3) mg/dL AST 144 H (17-59) U/L ALT 114 H (4-49) U/L Alkaline Phosphatase 103 (38-126) U/L Total Protein 6.5 (6.3-8.2) g/dL Albumin 4.1 (3.5-5.0) g/dL Amylase 58 (30-110) U/L Lipase 197 (23-300) U/L Urine Color Urine Appearance (Clear) Urine pH (5.0-8.0) Ur Specific [place] (1.001-1.035) Urine Protein (Negative) Urine Glucose (UA) (Negative) Urine Ketones (Negative) Urine Blood (Negative) Urine Nitrite (Negative) Urine Bilirubin (Negative) Urine Urobilinogen (<2.0) mg/dL Ur Leukocyte Esterase (Negative) Stool Occult Blood (Negative) 10/23/24 10/24/24 Range/Units 23:30 00:09 WBC (4.50-10.00) 10*3/uL RBC (4.40-5.60) 10*6/uL Hgb (13.0-17.0) g/dL Hct (39.6-50.0) % MCV (80.0-97.0) fL MCH (27.0-32.0) pg MCHC (32.0-37.0) g/dL Plt Count (140-440) 10*3/uL MPV (9.5-12.2) fL Immature Gran % (Auto) % Neutrophils % % Lymphocytes % % Monocytes % % Eosinophils % % Basophils % % Immature Gran # (0.00-0.04) 10*3/uL Neutrophils # (1.80-7.70) 10*3/uL Lymphocytes # (0.90-5.00) 10*3/uL Monocytes # (0.20-1.00) 10*3/uL Eosinophils # (0.04-0.35) 10*3/uL Basophils # (0.00-0.10) 10*3/uL PT (10.0-12.5) sec INR (<1.2) APTT (22.0-30.0) sec Sodium (137-145) mmol/L Potassium (3.5-5.1) mmol/L Chloride (98-107) mmol/L Carbon Dioxide (22-30) mmol/L Anion Gap mmol/L BUN (9-20) mg/dL Creatinine (0.66-1.25) mg/dL Est GFR (CKD-EPI)AfAm (>60 ml/min/1.73 sqM) Est GFR (CKD-EPI)NonAf (>60 ml/min/1.73 sqM) Glucose (74-99) mg/dL Calcium (8.4-10.2) mg/dL Total Bilirubin (0.2-1.3) mg/dL AST (17-59) U/L ALT (4-49) U/L Alkaline Phosphatase (38-126) U/L Total Protein (6.3-8.2) g/dL Albumin (3.5-5.0) g/dL Amylase (30-110) U/L Lipase (23-300) U/L Urine Color Yellow Urine Appearance Clear (Clear) Urine pH 7.0 (5.0-8.0) Ur Specific [place] 1.012 (1.001-1.035) Urine Protein Negative (Negative) Urine Glucose (UA) Negative (Negative) Urine Ketones Trace H (Negative) Urine Blood Negative (Negative) Urine Nitrite Negative (Negative) Urine Bilirubin Negative (Negative) Urine Urobilinogen <2.0 (<2.0) mg/dL Ur Leukocyte Esterase Negative (Negative) Stool Occult Blood Negative (Negative) Disposition Clinical Impression: Gastritis Disposition: HOME SELF-CARE Condition: Good Instructions (If sedation given, give patient instructions): Gastritis (ED), GERD (Gastroesophageal Reflux Disease) in Children (ED) Additional Instructions: Every disease is a spectrum and a small chance still exists that a serious condition could develop, for this reason, please monitor yourself closely for new, changing or worsening symptoms, symptoms that persist beyond 48 hours, vomiting blood, blood in your stool,, fever, inability to tolerate/keep down fluids or your medications, inability to follow up with outpatient providers as instructed and should you experience these symptoms or should you have any furth er concerns for your wellbeing please return to the ED or call 911 immediately. Please decrease your alcohol use, decrease intake of spicy foods, caffeine, chocolate, smoking, as these may exacerbate gastritis and peptic ulcer disease. PLEASE call your primary care physician as soon as possible to arrange / discuss plan for followup appointment. Appointment in the next 1-3 days is strongly enc ouraged if possible. PLEASE let us know here before you leave if there is anything further we can do to be of any assistance. Take care and feel Better! Is patient prescribed a controlled substance at d/c from ED?: No Referrals: None,Stated [Primary Care Provider] - 1-2 days
[2024-10-23 23:28] LABS: Basophils # (A) 0.08 10*3/uL (0.00-0.10); Basophils % (A) 0.8 %; Eosinophils # (A) 0.03 10*3/uL (0.04-0.35); Eosinophils % (A) 0.3 %; HCT 40.2 % (39.6-50.0); HGB 14.6 g/dL (13.0-17.0); Lymphocytes # (A) 1.62 10*3/uL (0.90-5.00); Lymphocytes % (A) 16.1 %; MCH 32.7 pg (27.0-32.0); MCHC 36.3 g/dL (32.0-37.0); MCV 90.1 fL (80.0-97.0); Mean Platelet Volume 9.5 fL (9.5-12.2); Monocytes # (A) 0.87 10*3/uL (0.20-1.00); Monocytes % (A) 8.7 %; Neutrophils # (A) 7.41 10*3/uL (1.80-7.70); Neutrophils % (A) 73.7 %; Platelet Count 227 10*3/uL (140-440); RBC 4.46 10*6/uL (4.40-5.60); RDW 12.9 % (11.5-14.5); WBC 10.05 10*3/uL (4.50-10.00)
[2024-10-23 23:39] LABS: Partial Thromboplastin Time 22.7 sec (22.0-30.0); Prothrombin Time 10.7 sec (10.0-12.5)
[2024-10-23] MEDS: SODIUM CHLORIDE 0.9% 1,000 ML IV ONE (23:39)
[2024-10-23] MEDS: FAMOTIDINE 20 MG/2 ML VIAL IV STA (23:40)
[2024-10-23] MEDS: ONDANSETRON 4 MG/2 ML VIAL IVP STA (23:41)
[2024-10-23] MEDS: PANTOPRAZOLE 40 MG/10 ML VIAL IVP STA (23:42)
[2024-10-23] MEDS: MORPHINE SULFATE 2 MG/ML SYRINGE IVP STA (23:43)
[2024-10-24 00:07] VITALS: BP 110/76; PULSE 100; RESP 18
[2024-10-24 00:08] LABS: ALT 114 U/L (4-49); AST 144 U/L (17-59); African American GFR (CKD) >90 (>60 ml/min/1.73 sqM); Albumin 4.1 g/dL (3.5-5.0); Alkaline Phosphatase 103 U/L (38-126); Amylase 58 U/L (30-110); Anion Gap 13 mmol/L; Blood Urea Nitrogen 11 mg/dL (9-20); Calcium 9.4 mg/dL (8.4-10.2); Carbon Dioxide 25 mmol/L (22-30); Chloride 98 mmol/L (98-107); Glucose 110 mg/dL (74-99); Lipase 197 U/L (23-300); Non-African American GFR(CKD) 84 (>60 ml/min/1.73 sqM); Potassium 3.3 mmol/L (3.5-5.1); Sodium 136 mmol/L (137-145); Total Bilirubin 0.9 mg/dL (0.2-1.3); Total Protein 6.5 g/dL (6.3-8.2)
[2024-10-24 00:17] LABS: Appearance,Urine Clear (Clear); Bilirubin,Urine Negative (Negative); Blood,Urine Negative (Negative); Color,Urine Yellow; Glucose,Urine (UA) Negative (Negative); Ketones,Urine Trace (Negative); Leukocyte Esterase,Urine Negative (Negative); Nitrite,Urine Negative (Negative); Protein,Urine Negative (Negative); Specific Gravity,Urine 1.012 (1.001-1.035); Urobilinogen,Urine <2.0 mg/dL (<2.0)
[2024-10-24] MEDS: POTASSIUM CHLORIDE ER 20 MEQ TAB.ER PO STA (00:55)
== END 2024-10-24 00:58 | disposition home or self-care (01) ==
LOC: EC 21:42
DX: K29.70 Gastritis, unspecified, without bleeding (principal); F17.200 Nicotine dependence, unspecified, uncomplicated
CPT/HCPCS: 36415; 93005; 80053; 82150; 83690; 85025; 85610; 85730; 82272; 81003; 99284; 96374; 96375; J2405; J2270; J2470; J1308

== ENCOUNTER 2025-01-07 23:20 | Emergency (ER) | payer OTHER ==
[2025-01-07 23:36] VITALS: BP 123/84; RESP 16
--- NOTE | 2025-01-08 00:04 | ED ---
Back Pain HPI - General Chief Complaint: Back Pain/Injury Stated Complaint: Back Pain, Leg Pain Time Seen by Provider: 01/08/25 00:04 Source: patient, RN notes reviewed Limitations: no limitations - History of Present Illness Initial Comments: 39-year-old male presenting to the ER for evaluation of back pain. Examination and history is limited as patient is intoxicated and severely slurring words. He states he has chronic back pain due to an injury lifting metal many years ago. He is reporting a flare of pain with pain radiating down bilateral lower extremities. He denies any new falls or injuries. He denies any bowel or bladder incontinence/retention, saddle paresthesias, fevers or history of IV drug abuse. He states the only thing that numbs his pain is whiskey which he did consume a pint of this prior to arrival. Patient states he is homeless and is requesting food upon examination. - Related Data Previous Rx's Medication Instructions Recorded Folic Acid 1 mg PO DAILY tab 10/30/24 Gabapentin [Neurontin] 300 mg PO TID 15 Days #45 cap 10/30/24 Ibuprofen [Motrin] 600 mg PO Q6HR PRN tab 10/30/24 Multivitamins, Thera [Multivitamin 1 each PO DAILY tab 10/30/24 (formulary)] Nicotine 14Mg/24Hr Patch [Habitrol] 1 patch TRANSDERM DAILY 14 Days 10/30/24 #14 patch Nicotine Gum (Polacrilex) 2 mg BUCCAL Q6HR PRN pieceofgum 10/30/24 [Nicorette] Thiamine [Vitamin B-1] 100 mg PO DAILY tab 10/30/24 risperiDONE [Uzedy] 100 mg SQ QMONTHLY #1 each 10/30/24 traZODone HCL [Desyrel] 100 mg PO HS PRN 30 Days #30 tab 10/30/24 Allergies Allergy/AdvReac Type Severity Reaction Status Date / Time No Known Allergies Allergy Verified 10/27/24 12:14 Review of Systems ROS Statement: Those systems with pertinent positive or pertinent negative responses have been documented in the HPI. ROS Other: All systems not noted in ROS Statement are negative. Past Medical History Past Medical History: Deep Vein Thrombosis (DVT), Thyroid Disorder Additional Past Medical History / Comment(s): ETOH abuse, past withdrawls with tremors/nausea/seizure, chronic low back pain, recent R knee/leg pain, DVT R leg, Catogory 5 blood disorder. Last Myocardial Infarction Date:: 07/2024 History of Any Multi-Drug Resistant Organisms: MRSA Date of last positivie culture/infection: august 2024 MDRO Source:: right side of face Past Surgical History: Cholecystectomy, Orthopedic Surgery Additional Past Surgical History / Comment(s): right knee tendon surgery Past Anesthesia/Blood Transfusion Reactions: Motion Sickness Additional Past Anesthesia/Blood Transfusion Reaction / Comment(s): Clausterphobia. Past Psychological History: Anxiety, Bipolar, Depression Smoking Status: Current every day smoker Past Alcohol Use History: Abuse, Daily, Heavy Past Drug Use History: None Reported - Past Family History Father History Unknown: Yes Family Medical History: CVA/TIA Additional Family Medical History / Comment(s): Unable to obtain family history secondary altered mentation Mother Family Medical History: Congestive Heart Failure (CHF) General Exam Limitations: no limitations General appearance: alert, in no apparent distress, appears intoxicated (Slurring words) Respiratory exam: Present: normal lung sounds bilaterally. Absent: respiratory distress, wheezes, rales, rhonchi, stridor Cardiovascular Exam: Present: regular rate, normal rhythm, normal heart sounds. Absent: systolic murmur, diastolic murmur, rubs, gallop, clicks Extremities exam: Present: normal inspection, full ROM, normal capillary refill (2+ bilateral PT pulses.), other (Scab left inner calf). Absent: tenderness, pedal edema, joint swelling, calf tenderness Back exam: Present: full ROM, tenderness (Lumbar spine), other (Patient able to ambulate and bear weight. Patient able to actively lift bilateral lower extremities off stretcher) Neurological exam: Present: alert, oriented X3, CN II-XII intact Skin exam: Present: warm, dry, intact, normal color. Absent: rash Course Vital Signs 01/07/25 23:32 Temperature 97.8 F Pulse Rate 91 Respiratory 16 Rate Blood Pressure 123/84 O2 Sat by Pulse 99 Oximetry Medical Decision Making - Medical Decision Making Was pt. sent in by a medical professional or institution (, PA, CONSTRUCTION DRILLER, urgent care, hospital, or fci...) When possible be specific @ -No Did you speak to anyone other than the patient for history (EMS, parent, family, police, friend...)? What history was obtained from this source @ -No Did you review nursing and triage notes (agree or disagree)? Why? @ -I reviewed and agree with nursing and triage notes Were old charts reviewed (outside hosp., previous admission, EMS record, old EKG, old radiological studies, urgent care reports/EKG's, fci records)? Report findings @ -Prior medical record Differential Diagnosis (chest pain, altered mental status, abdominal pain women, abdominal pain men, vaginal bleeding, weakness, fever, dyspnea, syncope, headache, dizziness, GI bleed, back pain, seizure, CVA, palpatations, mental health, musculoskeletal)? @ -Differential Back Pain:Strain, zoster, cauda equina syndrome, epidural abscess, vertebral osteomyelitis, discitis, fracture, subluxation, disc herniation, DJD, spinal stenosis, dissection, AAA, pancreatitis, peptic ulcer disease, pyelonephritis, kidney stone, this is not meant to be an all-inclusive list. EKG interpreted by me (3pts min.). @ -None done X-rays interpreted by me (1pt min.). @ -None done CT interpreted by me (1pt min.). @ -None done U/S interpreted by me (1pt. min.). @ -None done What testing was considered but not performed or refused? (CT, X-rays, U/S, labs)? Why? @ -Mention deferred as patient denies any new injuries or traumas. Pain is chronic. What meds were considered but not given or refused? Why? @ -None Did you discuss the management of the patient with other professionals (professionals i.e. , PA, CONSTRUCTION DRILLER, lab, RT, psych nurse, social services assistant, mail deliverer, teacher, peace officer, correctional case manager)? Give summary @ -No Was smoking cessation discussed for >3mins.? @ -No Was critical care preformed (if so, how long)? @ -No Were there social determinants of health that impacted care today? How? (Homelessness, low income, unemployed, alcoholism, drug addiction, transportation, low edu. Level, literacy, decrease access to med. care, group home, rehab)? @ -Patient is homeless. Alcoholism Was there de-escalation of care discussed even if they declined (Discuss DNR or withdrawal of care, Hospice)? DNR status @ -No What co-morbidities impacted this encounter? (DM, HTN, Smoking, COPD, CAD, Cancer, CVA, ARF, Chemo, Hep., AIDS, mental health diagnosis, sleep apnea, morbid obesity)? @ -Alcoholism Was patient admitted / discharged? Hospital course, mention meds given and route, prescriptions, significant lab abnormalities, going to OR and other pertinent info. @ -Discharge. 39-year male presented to ER for evaluation of back pain. History and physical limited given patient is intoxicated and slurring words. Vital signs stable. Patient in no signs of acute distress nontoxic-appearing. Patient is neurovascularly intact. There are no red flag back pain symptoms that he had cauda equina syndrome. Patient provided with symptomatic control in the emergency department. Patient also provided a sandwich and snacks as he is homeless. Patient discharged in stable condition advised follow-up with orthopedics. Return parameters discussed. Case discussed with ED attending, Dr. Humphrey. Undiagnosed new problem with uncertain prognosis? @ -No Drug Therapy requiring intensive monitoring for toxicity (Heparin, Nitro, Insulin, Cardizem)? @ -No Were any procedures done? @ -No Diagnosis/symptom? @ -Back pain/ alcohol intoxication Acute, or Chronic, or Acute on Chronic? @ -Acute Uncomplicated (without systemic symptoms) or Complicated (systemic symptoms)? @ -Uncomplicated Side effects of treatment? @ -No Exacerbation, Progression, or Severe Exacerbation? @ -No Poses a threat to life or bodily function? How? (Chest pain, USA, [place], pneumonia, PE, COPD, DKA, ARF, appy, cholecystitis, CVA, Diverticulitis, Homicidal, Suicidal, threat to staff... and all critical care pts) @ -No Disposition Clinical Impression: Alcohol use disorder, Alcohol intoxication, Chronic back pain Disposition: HOME SELF-CARE Condition: Stable Instructions (If sedation given, give patient instructions): Acute Low Back Pain (ED) Additional Instructions: Follow-up with orthopedics. Return to the ER for any new or worsening concerns. Is patient prescribed a controlled substance at d/c from ED?: No Referrals: None,Stated [Primary Care Provider] - 1-2 days Jacoby Hendricks DO [Doctor of Osteopathic Medicine] - 1-2 days Time of Disposition: 00:19
[2025-01-08] MEDS: KETOROLAC 15 MG/ML 1 ML VIAL IM STA (00:10)
[2025-01-08] MEDS: LIDOCAINE 4% PATCH TOPICAL ONE (00:11)
[2025-01-08 06:20] VITALS: PULSE 92; TEMP 97.4
== END 2025-01-08 06:28 | disposition home or self-care (01) ==
LOC: EC 23:20
DX: G89.29 Other chronic pain (principal); F10.129 Alcohol abuse with intoxication, unspecified; M54.9 Dorsalgia, unspecified; F17.200 Nicotine dependence, unspecified, uncomplicated
CPT/HCPCS: 96372; 99283